=== PATIENT | female | born 1950 | race Caucasian/White ===

== ENCOUNTER → 2020-05-14 08:06 | Outpatient (BNVA) | payer MEDICARE, MEDICAID, SELFPAY | PROVIDERS: PCP Family Medicine; Visit Provider Student in an Organized Health Care Education/Training Program | DX: R76.8 Other specified abnormal immunological findings in serum (principal); M17.0 Bilateral primary osteoarthritis of knee | CPT/HCPCS: 99213 ==

== ENCOUNTER → 2020-06-03 11:20 | Outpatient (BNV) | payer MEDICARE, MEDICAID, SELFPAY | PROVIDERS: PCP Family Medicine; Visit Provider Internal Medicine Medical Oncology | DX: M85.88 Other specified disorders of bone density and structure, other site (principal); Z85.3 Personal history of malignant neoplasm of breast; Z86.711 Personal history of pulmonary embolism; E53.8 Deficiency of other specified B group vitamins | CPT/HCPCS: 38222; 99212; 99213; 99214; 99442 ==

== ENCOUNTER 2020-08-03 11:12 | Outpatient (REF) | payer MEDICARE, MEDICAID, SELFPAY | END 2020-08-03 11:13 | disposition home or self-care (01) | LOC: HO.LAB 11:12 | PROVIDERS: PCP Family Medicine; Visit Provider Internal Medicine | DX: Z20.828 Contact with and (suspected) exposure to other viral communicable diseases (principal) | CPT/HCPCS: C9803; U0003 ==

== ENCOUNTER 2020-09-17 17:25 | Emergency (ER) | payer MEDICARE, MEDICAID, SELFPAY ==
--- NOTE | ~2020-09-17 | XR_ITS ---
EXAMINATION: XR ABDOMEN KUB CLINICAL INDICATION: Abdominal pain. Possible constipation COMPARISON: 04/23/2019 TECHNIQUE: AP view of the abdomen. FINDINGS: Stool and air seen throughout the colon to the rectum. No significant small bowel dilatation or small bowel gas. Surgical clips in the right upper quadrant and amandeep overlying the midline again noted. Mild degenerative changes in the spine. XR/XR KUB IMPRESSION: Unremarkable bowel gas pattern. No evidence for obstruction.
--- NOTE | ~2020-09-17 | CT_ITS ---
EXAMINATION: CT ABDOMEN AND PELVIS WITH CONTRAST CLINICAL INFORMATION: abd pain COMPARISON: 11/20/2019 TECHNIQUE: Multidetector volumetric imaging was performed from the superior aspect of the liver through the pubic symphysis following administration of 100 mL Omnipaque 350 intravenous contrast. Sagittal and coronal reformatted images were obtained on the technologist workstation.. This CT examination was performed using dose optimization techniques as appropriate, variously including the following: *Automated exposure control *Adjustment of mA and/or kV according to patient size (this includes techniques or standardized protocols for targeted exams where dose is matched to indication/reason for exam; i.e. extremities or head) *Use of iterative reconstruction technique DLP: 570 mGy-cm FINDINGS: LUNG BASES: The visualized lung bases are unremarkable. Small hiatal hernia. LIVER, GALLBLADDER, AND BILIARY TREE: Number of strengths chronic atrophy the right lobe with compensatory hypertrophy of the left lobe and mild nodularity but no suspicious underlying hepatic lesion. No focal hepatic lesion or biliary ductal dilatation is present. Gallbladder surgically absent. PANCREAS: Unremarkable. SPLEEN: Unremarkable. ADRENAL GLANDS: Unremarkable. KIDNEYS AND URETERS: The kidneys are normal in size, shape, and attenuation. No hydronephrosis, hydroureter, or calculi seen. No perinephric stranding. BLADDER: Unremarkable. GASTROINTESTINAL TRACT: Scattered colonic diverticulosis with focal colonic wall thickening and pericolonic inflammatory changes adjacent to the proximal sigmoid colon consistent with focal diverticulitis in location similar to the prior study. No obstructive changes seen. Normal-appearing appendix in the right lower quadrant. Visualized small bowel unremarkable ABDOMINAL WALL: Postoperative changes along the midline abdominal wall LYMPHOVASCULAR STRUCTURES: Again there is bulky mesenteric and retroperitoneal adenopathy which has progressed from the prior study. This is more than would be expected just from mesenteric adenitis. Low-grade lymphoma or leukemia cannot be excluded and should be clinically correlated PELVIC VISCERA: Unremarkable. OSSEOUS STRUCTURES: Unremarkable. CT/CT abdomen pelvis w con IMPRESSION: Focal diverticulitis in the proximal sigmoid colon in the location similar to the prior study. I do not appreciate any obstructive changes. Worsened bulky adenopathy within the root of the mesentery and retroperitoneum. This is more than would be expected just for mesenteric panniculitis along. Low-grade lymphoma or underlying blood dyscrasia would be suspected in this setting with worsening adenopathy compared to the prior study. Clinical correlation would be needed as this cannot be defined further on the CT scan.
[2020-09-17 18:39] VITALS: BP 147/75; PULSE 84; RESP 18; TEMP 37.1; O2SAT 100; BMI 31.2
[2020-09-17 19:38] LABS: MANUAL DIFF FLAG NO
[2020-09-17 19:39] LABS: Basophils Percent Auto 0.4 % (0-2); Eosinophils Percent Auto 0.4 % (0-4); Hematocrit 33.3 % (37-47); Hemoglobin 10.6 g/dl (12.0-16.0); Imm Gran Abs Auto 0.03 X10*3/uL (0.00-0.03); Imm Gran Pct Auto 0.4 % (0.0-0.4); Lymphocytes Percent Auto 23.9 % (20-40); Mean Corpuscular HGB Conc 31.8 g/dl (31.0-35.0); Mean Corpuscular Volume 87.9 fL (80-98); Monocytes Percent Auto 11.1 % (2-11); Neutrophils Absolute Auto 5.5 X10*3/uL (2.0-8.3); Neutrophils Percent Auto 63.8 % (45-73); Platelet Count 161 X10*3/uL (160-400); Red Blood Count 3.79 X10*6/uL (4.20-5.50); Red Cell Distribution Width 14.6 % (11.0-16.0); White Blood Count 8.5 X10*3/uL (4.8-10.8)
[2020-09-17 20:02] LABS: Alanine Aminotransferase 18 U/L (0-31); Albumin Level 4.2 g/dL (3.5-5.0); Alkaline Phosphatase 102 U/L (39-117); Anion Gap 14 (12-20); Aspartate Amino Transferase 20 U/L (5-31); Bilirubin Total 0.5 mg/dL (0.0-1.0); Blood Urea Nitrogen 6 mg/dL (9-16); Calcium 9.5 mg/dL (8.4-10.2); Carbon Dioxide 24 mmol/L (22-29); Chloride 106 mmol/L (96-108); Creatinine Clr Calc Pharmacy 74.5; Estimated Glomerular Filt Rate > 60; Glucose Random 97 mg/dL (60-115); Potassium 4.3 mmol/L (3.3-5.1); Sodium 140 mmol/L (135-145); Total Protein 7.7 g/dL (6.5-8.0)
[2020-09-17 20:10] VITALS: BP 139/61; PULSE 81; RESP 16; TEMP 36.9; O2SAT 99
--- NOTE | 2020-09-17 20:16 | PC.NURSE ---
Pt ambulating from the waiting room into room 20 with a cane with a steady gait. Pt is CAOx4, speaking full sentences, reporting LLQ since yesterday. Pt denies N/V but reports one episode of watery stool this morning. Pt had been taking laxatives yesterday as she had been feeling constipated. Pt reports a history of Diverticulitis, most recently 6 months ago, states pain feels similar. 8/10 pain to LLQ at this time. IV established. UA obtained and sent. VSS. Awaiting primary MD yusuf. Call smith within reach. Continue to monitor.
[2020-09-17 20:32] LABS: Glucose Urine UA NEG (NEG); Leukocyte Esterase Urine NEG (NEG); Nitrite Urine NEG (NEG); Urine Blood TRACE (NEG); Urine Ketones 5 MG/DL (NEG); Urine Protein NEG (NEG-TRACE)
[2020-09-17 20:35] LABS: Appearance Urine CLEAR; Color Urine YELLOW
--- NOTE | 2020-09-17 20:37 | ED.ABDPAIN ---
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 she does not report any fevers, chills, chest pain or pressure, palpitations, abdominal distention bloody diarrhea, dysuria, hematuria, and edema. MD elicited complaint: abdominal pain Pertinent past history: diverticulitis Onset (ago): day(s) (1) Pain Consistency: constant Location: LLQ and L flank Severity: moderate Pain scale (0-10): 5 Quality: aching Radiation: none Exacerbating factors: bowel movement and movement Relieving factors: nothing Associated symptoms: denies other symptoms Related Data Home Medications Medication Instructions Recorded Confirmed albuterol sulfate 90 mcg/actuation 2 puff INHALATION Q4-6H PRN 05/03/20 06/03/20 aerosol inhaler fluticasone propionate 50 1 spray INTRANASAL DAILY 05/03/20 06/03/20 mcg/actuation nasal spray,suspension levothyroxine 88 mcg tablet 88 mcg PO DAILY 05/03/20 06/03/20 montelukast 10 mg tablet 10 mg PO DAILY 05/03/20 06/03/20 pantoprazole 40 mg tablet,delayed 40 mg PO DAILY 05/03/20 06/03/20 release cholecalciferol (vitamin D3) 25 25 mcg PO DAILY 05/14/20 06/03/20 mcg (1,000 unit) capsule cyanocobalamin (vitamin B-12) 1,000 mcg IM [id number] ml 05/14/20 06/03/20 1,000 mcg/mL injection solution Previous Rx's Medication Instructions Recorded levofloxacin 750 mg PO DAILY 10 Days #10 tab 09/17/20 metronidazole [Flagyl] 500 mg PO Q8H 10 Days #30 tab 09/17/20 oxycodone 5 mg PO Q8H PRN #7 tab 09/17/20 Allergies Allergy/AdvReac Type Severity Reaction Status Date / Time aspirin [ASPIRIN] Allergy Intermediate RASH Verified 06/03/20 08:47 Penicillins [PENICILLINS] Allergy Intermediate HIVES, BLACK Verified 06/03/20 08:47 SPOTS Review of Systems Review of Systems Constitutional: No Fever, No Chills ENT/Mouth: No sore throat Eyes: No Eye Pain, No Swelling, No Redness Cardiovascular: No Chest Pain, No SOB Respiratory: No Cough, No Sputum, No Wheezing Gastrointestinal: No Nausea, no Vomiting, No Diarrhea, positive abdominal pain Genitourinary: No Dysuria, no urinary frequency, no Hematuria, no Flank Pain, no hesitancy Musculoskeletal: No joint pain, No Myalgias Skin: No Skin Lesions, No rash Neuro: No Weakness, No Numbness, No Headache Psych: No Anxiety/Panic, No Depression Heme/Lymph: No Bruising, No Lymphadenopathy Endocrine: No Polyuria, No Polydipsia Yes all other systems are reviewed and are negative Physical Exam Vital Signs: Vital Signs: Last Vital Signs Temp 98.2 F 09/17/20 23:57 Pulse 80 09/17/20 23:57 Resp 18 09/17/20 23:57 BP 138/56 L 09/17/20 23:57 Pulse Ox 98 09/17/20 23:57 Body Mass Index 31.2 Appearance: Alert. Oriented X3. Mild distress. Eyes: Pupils equal, round and reactive to light. ENT: Pharynx normal. Neck: Normal inspection. Neck supple. CVS: Normal heart rate and rhythm. Pulses normal. Respiratory: No respiratory distress. Breath sounds normal. Abdomen: Soft and tender to minimal palpation to left lower quadrant and suprapubic. Skin: Skin warm and dry. Normal skin color. Normal skin turgor. Extremities: No lower extremity edema. Neuro: No motor deficit. No sensory deficit. 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 She has been afebrile, appears nontoxic, has been able to eat and drink without difficulty, reported some mild constipation that was resolved with p.o. laxatives. KUB is negative for acute findings, lab values are unremarkable with the exception of H and H 10.6/33.3 which is consistent with her prior values. Based on patient's history of abdominal lymphadenopathy and diverticulitis we will order CT scan with contrast. CT with contrast shows a worsening of lymphadenopathy highly suggestive of cancer, could possibly be metastatic as she does have a history of breast cancer. She is followed by Dr. Polanco. Prior CT scans show history of abdominal lymphadenopathy, she does say that she was told that she had abdominal cancer based on a prior CT scan. I discussed this case with hospitalist, patient does not want to be admitted. She does have follow-up with Dr. Polanco later this week, given that she does have this appointment, appears nontoxic, is afebrile and has a white count of 8.5 and no other indication of organ dysfunction we discharge home with p.o. antibiotics and pain management. Patient verbalized understanding of and agrees to plan of care to discharge home with appropriate follow-up. Consultations Consultation #1: Anurag Time: 23:00 MDM - Abdominal Pain Differential Diagnosis Differential diagnosis: Likely abdominal pain, acute appendicitis, bowel perforation, calculus of kidney, diverticulitis, mesenteric ischemia and small bowel obstruction Differential diagnosis narrative:: Abdominal Ca Medical Records Attestation: I reviewed the patient's medical records. Lab Data Attestation: I reviewed the patient's lab results. Result diagrams: 09/17/20 19:30 09/17/20 19:30 Labs: Lab Results 09/17/20 09/17/20 09/17/20 Range/Units 19:30 19:30 19:30 WBC 8.5 (4.8-10.8) X10*3/uL RBC 3.79 L (4.20-5.50) X10*6/uL Hgb 10.6 L (12.0-16.0) g/dl Hct 33.3 L (37-47) % MCV 87.9 (80-98) fL MCH 28.0 (27.0-33.0) pg MCHC 31.8 (31.0-35.0) g/dl RDW 14.6 (11.0-16.0) % Plt Count 161 (160-400) X10*3/uL MPV 12.0 (9.4-12.3) fL Immature Gran % (Auto) 0.4 (0.0-0.4) % Neut % (Auto) 63.8 (45-73) % Lymph % (Auto) 23.9 (20-40) % Schuyler % (Auto) 11.1 H (2-11) % Eos % (Auto) 0.4 (0-4) % Baso % (Auto) 0.4 (0-2) % Lymph # (Auto) 2.0 (1.2-4.9) X10*3/uL Schuyler # (Auto) 1.0 (0.1-1.2) X10*3/uL Eos # (Auto) 0.0 (0.0-0.4) X10*3/uL Baso # (Auto) 0.0 (0.0-0.2) X10*3/uL Abs Immat Gran (auto) 0.03 (0.00-0.03) X10*3/uL Absolute Neuts (auto) 5.5 (2.0-8.3) X10*3/uL Absolute Nucleated RBC 0.000 (0.0-0.012) X10*3/uL Nucleated RBC % (auto) 0.0 (0.0-0.2) /100WBC Hold Blue Top SEE NOTE Sodium 140 (135-145) mmol/L Potassium 4.3 (3.3-5.1) mmol/L Chloride 106 (96-108) mmol/L Carbon Dioxide 24 (22-29) mmol/L Anion Gap 14 (12-20) BUN 6 L (9-16) mg/dL Creatinine 0.73 (0.5-1.4) mg/dL Estim Creat Clear Calc 74.5 Estimated GFR > 60 Random Glucose 97 (60-115) mg/dL Calcium 9.5 (8.4-10.2) mg/dL Total Bilirubin 0.5 (0.0-1.0) mg/dL AST 20 (5-31) U/L ALT 18 (0-31) U/L Alkaline Phosphatase 102 (39-117) U/L Total Protein 7.7 (6.5-8.0) g/dL Albumin 4.2 (3.5-5.0) g/dL Urine Color Urine Appearance Urine pH (5.0-8.0) Ur Specific [place] (1.005-1.025) Urine Protein (NEG-TRACE) MG/DL Urine Glucose (UA) (NEG) MG/DL Urine Ketones (NEG) MG/DL Urine Blood (NEG) Urine Nitrite (NEG) Ur Leukocyte Esterase (NEG) Urine RBC (0) /HPF Urine WBC (0-4) /HPF Ur Squamous Epith Cells /LPF Urine Bacteria /LPF 09/17/20 Range/Units 20:21 WBC (4.8-10.8) X10*3/uL RBC (4.20-5.50) X10*6/uL Hgb (12.0-16.0) g/dl Hct (37-47) % MCV (80-98) fL MCH (27.0-33.0) pg MCHC (31.0-35.0) g/dl RDW (11.0-16.0) % Plt Count (160-400) X10*3/uL MPV (9.4-12.3) fL Immature Gran % (Auto) (0.0-0.4) % Neut % (Auto) (45-73) % Lymph % (Auto) (20-40) % Schuyler % (Auto) (2-11) % Eos % (Auto) (0-4) % Baso % (Auto) (0-2) % Lymph # (Auto) (1.2-4.9) X10*3/uL Schuyler # (Auto) (0.1-1.2) X10*3/uL Eos # (Auto) (0.0-0.4) X10*3/uL Baso # (Auto) (0.0-0.2) X10*3/uL Abs Immat Gran (auto) (0.00-0.03) X10*3/uL Absolute Neuts (auto) (2.0-8.3) X10*3/uL Absolute Nucleated RBC (0.0-0.012) X10*3/uL Nucleated RBC % (auto) (0.0-0.2) /100WBC Hold Blue Top Sodium (135-145) mmol/L Potassium (3.3-5.1) mmol/L Chloride (96-108) mmol/L Carbon Dioxide (22-29) mmol/L Anion Gap (12-20) BUN (9-16) mg/dL Creatinine (0.5-1.4) mg/dL Estim Creat Clear Calc Estimated GFR Random Glucose (60-115) mg/dL Calcium (8.4-10.2) mg/dL Total Bilirubin (0.0-1.0) mg/dL AST (5-31) U/L ALT (0-31) U/L Alkaline Phosphatase (39-117) U/L Total Protein (6.5-8.0) g/dL Albumin (3.5-5.0) g/dL Urine Color YELLOW Urine Appearance CLEAR Urine pH 6.0 (5.0-8.0) Ur Specific [place] 1.020 (1.005-1.025) Urine Protein NEG (NEG-TRACE) MG/DL Urine Glucose (UA) NEG (NEG) MG/DL Urine Ketones 5 (NEG) MG/DL Urine Blood TRACE (NEG) Urine Nitrite NEG (NEG) Ur Leukocyte Esterase NEG (NEG) Urine RBC 0-2 (0) /HPF Urine WBC 0-2 (0-4) /HPF Ur Squamous Epith Cells 1+ /LPF Urine Bacteria NONE /LPF Imaging Data KUB: Attestation: I personally reviewed and interpreted this imaging study as follows: Radiologist's impression: EXAMINATION: XR ABDOMEN KUB CLINICAL INDICATION: Abdominal pain. Possible constipation COMPARISON: 04/23/2019 TECHNIQUE: AP view of the abdomen. FINDINGS: Stool and air seen throughout the colon to the rectum. No significant small bowel dilatation or small bowel gas. Surgical clips in the right upper quadrant and amandeep overlying the midline again noted. Mild degenerative changes in the spine. XR/XR KUB IMPRESSION: Unremarkable bowel gas pattern. No evidence for obstruction. CT scan - abdomen: Attestation: I personally reviewed and interpreted this imaging study as follows: Radiologist's impression: EXAMINATION: CT ABDOMEN AND PELVIS WITH CONTRAST CLINICAL INFORMATION: abd pain COMPARISON: 11/20/2019 TECHNIQUE: Multidetector volumetric imaging was performed from the superior aspect of the liver through the pubic symphysis following administration of 100 mL Omnipaque 350 intravenous contrast. Sagittal and coronal reformatted images were obtained on the technologist workstation.. This CT examination was performed using dose optimization techniques as appropriate, variously including the following: *Automated exposure control *Adjustment of mA and/or kV according to patient size (this includes techniques or standardized protocols for targeted exams where dose is matched to indication/reason for exam; i.e. extremities or head) *Use of iterative reconstruction technique DLP: 570 mGy-cm FINDINGS: LUNG BASES: The visualized lung bases are unremarkable. Small hiatal hernia. LIVER, GALLBLADDER, AND BILIARY TREE: Number of strengths chronic atrophy the right lobe with compensatory hypertrophy of the left lobe and mild nodularity but no suspicious underlying hepatic lesion. No focal hepatic lesion or biliary ductal dilatation is present. Gallbladder surgically absent. PANCREAS: Unremarkable. SPLEEN: Unremarkable. ADRENAL GLANDS: Unremarkable. KIDNEYS AND URETERS: The kidneys are normal in size, shape, and attenuation. No hydronephrosis, hydroureter, or calculi seen. No perinephric stranding. BLADDER: Unremarkable. GASTROINTESTINAL TRACT: Scattered colonic diverticulosis with focal colonic wall thickening and pericolonic inflammatory changes adjacent to the proximal sigmoid colon consistent with focal diverticulitis in location similar to the prior study. No obstructive changes seen. Normal-appearing appendix in the right lower quadrant. Visualized small bowel unremarkable ABDOMINAL WALL: Postoperative changes along the midline abdominal wall LYMPHOVASCULAR STRUCTURES: Again there is bulky mesenteric and retroperitoneal adenopathy which has progressed from the prior study. This is more than would be expected just from mesenteric adenitis. Low-grade lymphoma or leukemia cannot be excluded and should be clinically correlated PELVIC VISCERA: Unremarkable. OSSEOUS STRUCTURES: Unremarkable. CT/CT abdomen pelvis w con IMPRESSION: Focal diverticulitis in the proximal sigmoid colon in the location similar to the prior study. I do not appreciate any obstructive changes. Worsened bulky adenopathy within the root of the mesentery and retroperitoneum. This is more than would be expected just for mesenteric panniculitis along. Low-grade lymphoma or underlying blood dyscrasia would be suspected in this setting with worsening adenopathy compared to the prior study. Clinical correlation would be needed as this cannot be defined further on the CT scan. Discharge Plan Discharge Clinical Impression: Diverticulitis, Abdominal lymphadenopathy Patient Disposition: Home, Self-Care Instructions: Diverticulitis (ED), Lymphadenopathy (ED), Diverticulitis Diet (ED) Additional Instructions: Te evaluaron para abdominal. La tomograf?a computarizada muestra diverticulitis, as? solitario un empeoramiento de la adenopat?a abdominal. Kayla empeoramiento de la adenopat?a es altamente sospechoso de c?ncer. Por favor, siga con el Dr. Polanco solitario estaba programado. Por favor, tome Levaquin solitario se indica prudencio los pr?ximos 10 d?as. Por favor, tome Flagyl 3 veces al d?a prudencio los pr?ximos 10 d?as. No elizabeth alcohol con kayla medicamento tendr? efectos secundarios graves. Le recetamos oxicodona para el manejo del dolor. Kayla medicamento es un narc?sally y tiene un alto riesgo de adicci?n y abuso. No conduzca la maquinaria de la operaci?n ni tome decisiones importantes mientras ino kayla medicamento. Kayla medicamento tiene un alto riesgo de ca?souza, retrasa el tiempo de reacci?n y puede causar estre?imiento. Use MiraLax y Colace seg?n sea necesario para suavizar las heces. Elizabeth mucho l?quido. Tyron por elegir kayla departamento de emergencias para la evaluaci?n. Por favor, chen un seguimiento con el m?dico de atenci?n primaria seg?n sea necesario. Regrese al servicio de urgencias para cualquier s?ntoma nuevo, preocupante o que empeore. You were evaluated for abdominal. CT scan shows diverticulitis as well as a worsening abdominal adenopathy. This worsening adenopathy is highly suspicious for cancer. Please follow-up with Dr. Polanco as scheduled. Please take Levaquin as directed for the next 10 days. Please take Flagyl 3 times a day for the next 10 days. Do not drink alcohol with this medication will have serious side effects. We prescribed oxycodone for pain management. This medication is a narcotic and has high risk for addiction and abuse. Do not drive operate machinery or make important decisions while taking this medication. This medication has high risk for falls, delays reaction time, and can cause constipation. Use MiraLax and Colace as needed to soften stools. Drink plenty of fluids. Thank you for choosing this emergency department for evaluation. Please follow-up with primary care physician as needed. Return to the emergency department for any new, concerning, or worsening symptoms. Prescriptions: New levofloxacin 750 mg tablet 750 mg PO DAILY 10 Days Qty: 10 RF: 0 metronidazole [Flagyl] 500 mg tablet 500 mg PO Q8H 10 Days Qty: 30 RF: 0 oxycodone 5 mg tablet 5 mg PO Q8H PRN (Reason: pain) Qty: 7 RF: 0 No Action montelukast 10 mg tablet 10 mg PO DAILY RF: 0 pantoprazole 40 mg tablet,delayed release (DR/EC) 40 mg PO DAILY RF: 0 levothyroxine 88 mcg tablet 88 mcg PO DAILY RF: 0 fluticasone propionate 50 mcg/actuation spray,suspension 1 spray intranasal DAILY RF: 0 albuterol sulfate 90 mcg/actuation HFA aerosol inhaler 2 puff inhalation Q4-6H PRN (Reason: Shortness Of Breath) RF: 0 cholecalciferol (vitamin D3) 25 mcg (1,000 unit) capsule 25 mcg PO DAILY RF: 0 cyanocobalamin (vitamin B-12) 1,000 mcg/mL solution 1,000 mcg IM [id number] RF: 0 PMFSH Past Medical History Attestation statement: The following information was validated with the patient. Source: old records reviewed Medical History (Updated 09/17/20 @ 22:37 by Myrtle Weston NP) Aberrant thyroid gland Asthma Breast cancer, left breast GERD (gastroesophageal reflux disease) Tubal ligation evaluation Social History Social History Alcohol intake: never Smoking Status: Former smoker Advance Directives: No Advance Directives Information Provided: Yes Sexual orientation: Straight/Heterosexual Gender identity: female
--- NOTE | 2020-09-17 20:39 | PC.NURSE ---
CRYSTAL GROWER at bedside for primary eval.
[2020-09-17 20:42] LABS: RBC Urine 0-2 /HPF (0); Squamous Epithelial Cell Urine 1+ /LPF; WBC Urine 0-2 /HPF (0-4)
[2020-09-17] MEDS: 0.9 % Sodium Chloride 1,000 ML 999 ML IVCONT (20:59)
--- NOTE | 2020-09-17 20:59 | PC.NURSE ---
IVF infusing per MAR. Plan for CT, awaiting CT.
--- NOTE | 2020-09-17 21:20 | PC.NURSE ---
Pt off to CT on hospital bed.
[2020-09-17] MEDS: iohexoL 350 MG/ML 100 ML INFUS..BTL IV (21:35)
[2020-09-17 21:53] VITALS: BP 137/66; PULSE 79; RESP 16
[2020-09-17] MEDS: Morphine Sulfate 2 MG/ML CARTRIDGE IVPUSH (22:52)
[2020-09-17] MEDS: ondansetron HCL 4 MG/2 ML VIAL IVPUSH (22:52)
[2020-09-17] MEDS: levoFLOXacin/D5W 750 MG/150 ML PIGGYBACK 100 MG IV (22:52)
--- NOTE | 2020-09-17 22:59 | PC.NURSE ---
Hospitalist at bedside, pt refusing admission to [facility]. Plan for IV ABX and DC home. Per SURFACE PLATE INSPECTOR and hospitalist, BCX not needed as pt will be discharged. Per SURFACE PLATE INSPECTOR, plan for PO Flagyl instead of IV, awaiting change of order. VSS. Continue to monitor.
[2020-09-17] MEDS: metroNIDAZOLE 500 MG TABLET PO (23:25)
[2020-09-17 23:57] VITALS: BP 138/56; PULSE 80; RESP 18; TEMP 36.8; O2SAT 98
[2020-09-18 00:55] VITALS: BP 122/63; PULSE 82; RESP 18; O2SAT 95
== END 2020-09-18 01:05 | disposition home or self-care (01) ==
PROVIDERS: Emergency Provider Emergency Medicine; PCP Family Medicine
DX: K57.32 Diverticulitis of large intestine without perforation or abscess without bleeding (principal); R59.1 Generalized enlarged lymph nodes; Z85.3 Personal history of malignant neoplasm of breast; K21.9 Gastro-esophageal reflux disease without esophagitis
CPT/HCPCS: 36415; 74018; 74177; 80053; 81001; 85025; 96365; 96367; 96375; 99284; J1956; J2270; J2405; Q9967

== ENCOUNTER 2020-09-18 14:30 | Outpatient (REF) | payer MEDICARE, MEDICAID, SELFPAY ==
--- NOTE | ~2020-09-18 | MM_ITS ---
EXAMINATION: MM SCREENING DIGITAL BREAST TOMOSYNTHESIS, BILATERAL CLINICAL INFORMATION: Screening. Asymptomatic. The lifetime risk of breast cancer based on the Tyrer-Cuzick Model is 4%. COMPARISON: Mammography: 06/21/2019, 05/16/2018, 05/06/2018, 03/14/2017 TECHNIQUE: Digital breast tomosynthesis is performed in both the craniocaudal and mediolateral oblique views along with computer-aided detection (CAD). Synthesized 2D images are generated from the tomosynthesis. FINDINGS: There are scattered areas of fibroglandular density (ACR BI-RADS breast composition Category b). There are bilateral asymmetries similar to prior exams. No developing density. No significant mass or architectural abnormality. Left breast has loosely grouped calcifications mid 3:00 position increased in prior studies. Patient will be recalled for magnification views to fully characterize. No abnormal calcifications on the right. MM/MM tomosynthesis screening BI IMPRESSION: 1. Left: Loosely grouped calcifications mid 3:00 position increased from prior studies. 2. Right: No mammographic evidence of malignancy. ASSESSMENT: BI-RADS 0: Incomplete - Need Additional Imaging Evaluation RECOMMENDATION: 1. Additional views of the left breast (magnification CC, magnification ML). 2. Radiology department staff will contact the patient for additional imaging. This patient's information was entered into a reminder system with a target due date for their next mammogram.
== END 2020-09-18 14:31 | disposition home or self-care (01) ==
LOC: HO.MAMMO 14:30
PROVIDERS: Visit Provider Family Medicine
DX: Z12.31 Encounter for screening mammogram for malignant neoplasm of breast (principal)
CPT/HCPCS: 77063; 77067

== ENCOUNTER 2020-09-24 10:56 | Outpatient (REF) | payer MEDICARE, MEDICAID, SELFPAY ==
--- NOTE | ~2020-09-24 | MM_ITS ---
EXAMINATION: MM DIAGNOSTIC DIGITAL MAMMOGRAPHY, LEFT CLINICAL INFORMATION: Recall from screening for calcifications mid 3:00 left breast. COMPARISON: Mammography: 09/18/2020, 06/21/2019, 05/16/2018, 05/06/2018, 03/14/2017. TECHNIQUE: Digital mammography is performed in the following views: Magnification left CC and magnification left ML x2. FINDINGS: There are scattered areas of fibroglandular density (ACR BI-RADS breast composition Category b). There are loosely grouped calcifications outer breast. They are likely not significantly changed from prior standard mammography 2018, although difficult to fully compare without prior magnification views. The calcifications are round and vary in size. There are no della or branching types and no ductal distribution. Results are discussed with the patient at time of visit. MM/MM added views LT IMPRESSION: Probable benign calcifications outer left breast. ASSESSMENT: BI-RADS 3: Probably Benign RECOMMENDATION: Diagnostic left mammography in 6 months to include magnifications views. This patient's information was entered into a reminder system with a target due date for their next mammogram.
== END 2020-09-24 10:57 | disposition home or self-care (01) ==
LOC: HO.MAMMO 10:56
PROVIDERS: Visit Provider Family Medicine
DX: R92.1 Mammographic calcification found on diagnostic imaging of breast (principal)
CPT/HCPCS: 77065

== ENCOUNTER 2020-10-01 10:48 | Day surgery (SDC) | payer MEDICARE, MEDICAID, SELFPAY ==
--- NOTE | ~2020-10-01 | CT_ITS ---
PROCEDURE: CT GUIDED BIOPSY, ABDOMINAL MASS CLINICAL INFORMATION: Lymphadenopathy COMPARISON: Previous CT of the abdomen and pelvis 09/17/2020 TECHNIQUE: Procedure risks and benefits including bleeding, infection, injury to adjacent organs and injury to the bowel was discussed with the patient and informed consent was obtained. Axial images through the abdomen were performed. The left mid abdomen was prepped and draped in the usual sterile fashion. The skin and soft tissues were anesthetized with 1% lidocaine plain. Using CT guidance and a coaxial system, access to an enlarged small bowel mesentery lymph node was obtained. 4 22-gauge FNA specimens were obtained for cytology and flow cytometry studies. There was no complication. The patient received Versed 2 mg and fentanyl 1.25 mg and glucagon 1 mg IV during the procedure. Total sedation time was [address] examination was performed using dose optimization techniques as appropriate, variously including the following: *Automated exposure control *Adjustment of mA and/or kV according to patient size (this includes techniques or standardized protocols for targeted exams where dose is matched to indication/reason for exam; i.e. extremities or head) *Use of iterative reconstruction technique DLP: 268 mGy-cm FINDINGS: There is small bowel mesentery lymphadenopathy. A 3 x 2 cm andreas mass was targeted for fine-needle aspiration. CT/CT biopsy abdomen percutaneous IMPRESSION: CT-guided small bowel mesentery lymph node fine-needle aspiration.
[2020-10-01 06:22] VITALS: BMI 30.9
[2020-10-01 11:48] VITALS: BP 159/67; PULSE 75; RESP 18; TEMP 36.6; O2SAT 98
[2020-10-01 12:11] LABS: INTERNATIONAL NORM RATIO 1.2 (0.9-1.1)
[2020-10-01 12:14] LABS: Partial Thromboplastin Time 38.2 SEC (24.1-38.0)
--- NOTE | 2020-10-01 13:57 | HO.RADPN ---
RADIOLOGY Narrative Narrative: Small bowel mesentery lymph nose fna performed using coaxial system. 4 22g fna specimens obtained. No complication.
[2020-10-01 14:10] VITALS: BP 135/71; PULSE 68; RESP 20; TEMP 37; O2SAT 97
[2020-10-01] MEDS: Lidocaine HCl 1 % MPF 5 ML VIAL 10 ML SUBCUT (14:10)
[2020-10-01 14:25] VITALS: BP 134/65; PULSE 70; RESP 18; O2SAT 97
[2020-10-01 14:40] VITALS: BP 125/62; PULSE 67; RESP 18; O2SAT 97
[2020-10-01 14:55] VITALS: BP 115/46; PULSE 68; RESP 18; O2SAT 98
[2020-10-01 15:10] VITALS: BP 123/55; PULSE 75; RESP 18; O2SAT 98
[2020-10-01] MEDS: Acetaminophen 325 MG TABLET 650 MG PO (15:34)
== END 2020-10-01 15:40 | disposition home or self-care (01) ==
PROVIDERS: PCP Radiology Diagnostic Radiology; Visit Provider Radiology Diagnostic Radiology
DX: R59.0 Localized enlarged lymph nodes (principal); J45.909 Unspecified asthma, uncomplicated; Z79.51 Long term (current) use of inhaled steroids; Z79.899 Other long term (current) drug therapy; Z79.82 Long term (current) use of aspirin
CPT/HCPCS: 10009; 36415; 49180; 77012; 85610; 85730; 88172; 88173; 88177; 88184; 88185; 88271; 88275; 88300; 88305; 88374; 99152; 99153; J1610; J2250; J3010

== ENCOUNTER 2020-10-19 11:42 | Outpatient (REF) | payer MEDICARE, MEDICAID, SELFPAY ==
--- NOTE | ~2020-10-19 | PE_ITS ---
EXAMINATION: Fluorine-18 FDG PET/CT Scan CLINICAL INDICATION: Initial treatment management.. Non-Hodgkin's lymphoma, positive: B cell mesenteric lymphoma, initial staging. PROCEDURE: 65 minutes following the intravenous administration of 13.4 mCi of fluorine 18 FDG, images from the base of the skull to the mid thighs were obtained using a combined PET/CT scanner with CT scan based attenuation correction. No oral contrast was administered. No intravenous contrast was administered. Transverse, coronal, sagittal, and volume reconstruction projections were obtained. The patient's blood glucose as determined by a finger stick, was 83 mg/dl immediately prior to injection. Total CT exam dose-length product 677.37 mGy-cm * These CT images were obtained using dose optimization techniques as appropriate, variously including the following: Automated exposure control * Adjustment of mA and/or kV according to patient size (this includes techniques or standardized protocols for targeted exams where dose is matched to indication/reason for exam; i.e. extremities or head) * Use of iterative reconstruction technique COMPARISON: No previous PET/CT scan is available for comparison. CT scan of the abdomen and pelvis dated 09/17/2020 and CTA of the chest dated 03/02/2019 are available for comparison. FINDINGS: (Slice numbers described in this report are numbered superiorly to inferiorly with slice #1 in the head) NECK AND VISUALIZED HEAD: No foci of abnormal FDG activity are noted. The distribution of FDG activity is physiological. There is no cervical lymphadenopathy. THORAX: There is a mildly FDG avid left axillary lymph node showing SUVmax 4.3, slice 83/267 and measuring 1.8 x 0.6 cm in largest transverse dimensions on the CT images. No additional foci of abnormal FDG activity are present in the chest. Just barely visualized is a 0.4 cm right upper lobe pulmonary nodule, slice 77/267 unchanged from the prior 03/02/2019 CT scan. This is much too small to be characterized on the FDG PET images. No additional pulmonary nodules are visualized. There is no pleural or pericardial fluid, or pneumothorax. There is no mediastinal, supraclavicular or additional axillary lymphadenopathy. ABDOMEN AND PELVIS: Extensive FDG avid mesenteric and retroperitoneal lymphadenopathy associated with FDG avid mesenteric stranding is present, SUVmax 9.2, slice 166/267. Just inferior to the pelvic inlet there is a discrete FDG avid pelvic lymph node showing SUVmax 5.7, slice 182/267 which is probably within a loop of small bowel or a lymph node inseparable from the latter, and at the same level a second FDG avid focus near the midline is present likely a mesenteric lymph node showing SUVmax 5.9, slice 179/267. There is additional mild FDG activity throughout the gastrointestinal tract involving both the large and small bowel extensively, and while most of this is likely physiological, additional abnormal FDG avid foci within the bowel wall may be present. The liver is normal in appearance except for some atrophy of the right lobe and hypertrophy of the left lobe is noted on the 09/17/2020 CT scan and unchanged from the latter. The spleen is unremarkable. The gallbladder is been resected and there are multiple metallic surgical clips in the gallbladder bed. The kidneys and adrenal glands are unremarkable. The pancreas is unremarkable. The pelvic viscera are are unremarkable. Postsurgical changes in the midline anterior abdominal wall are noted. There is no pelvic sidewall or inguinal lymphadenopathy. MUSCULOSKELETAL: No FDG avid foci are present in the osseous structures. There are mild degenerative changes in the spine but no suspicious sclerotic or lytic lesions are visualized. VASCULAR: Vascular calcifications including coronary are noted. PET/PET CT fusion skull to thigh IMPRESSION: 1. Extensive FDG avid retroperitoneal and mesenteric lymphadenopathy is present as described above. This is consistent with the biopsy-proven non-Hodgkin's B-cell lymphoma. 2. A single FDG avid left axillary lymph node is present and is nonspecific. This may represent an additional lymphomatous focus, but might also be inflammatory in etiology. 3. No additional abnormalities suspicious for other metastatic or malignant lesions are noted.
== END 2020-10-19 11:43 | disposition home or self-care (01) ==
LOC: HO.PET 11:42
PROVIDERS: Visit Provider Internal Medicine Medical Oncology
DX: Z13.89 Encounter for screening for other disorder (principal)

== ENCOUNTER 2020-10-22 09:16 | Day surgery (SDC) | payer MEDICARE, MEDICAID, SELFPAY ==
--- NOTE | 2020-10-21 09:19 | HO.ANESPROP2 ---
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 (Acute) Pulmonary embolism (Acute) B12 deficiency anemia (Acute) Abdominal lymphadenopathy (Acute) Past Medical History Medical History Aberrant thyroid gland Asthma B12 deficiency anemia Breast cancer, left breast GERD (gastroesophageal reflux disease) Hypothyroid Primary osteoarthritis of knees, bilateral Pulmonary embolism Tubal ligation evaluation Social History Social History Alcohol intake: never Smoking Status: Never smoker Smoked in Last 30 Days: No Patient Interested in Nicotine Replacement: No Patient Given Instructions on How to Stop Smoking: No Second Hand Smoke Exposure: No Advance Directives: No Advance Directives Information Provided: Yes Sexual orientation: Straight/Heterosexual Gender identity: female Meds Allergies Allergy/AdvReac Type Severity Reaction Status Date / Time aspirin [ASPIRIN] Allergy Intermediate RASH Verified 09/23/20 10:58 Penicillins [PENICILLINS] Allergy Intermediate HIVES, BLACK Verified 09/23/20 10:58 SPOTS Home Medications Medication Instructions Recorded Confirmed Last Taken Type albuterol sulfate 90 mcg/actuation 2 puff INHALATION Q4-6H PRN 05/03/20 09/23/20 Unknown History aerosol inhaler fluticasone propionate 50 1 spray INTRANASAL DAILY 05/03/20 09/23/20 Unknown History mcg/actuation nasal spray,suspension levothyroxine 88 mcg tablet 88 mcg PO DAILY 05/03/20 09/23/20 10/22/20 History montelukast 10 mg tablet 10 mg PO DAILY 05/03/20 09/23/20 Unknown History pantoprazole 40 mg tablet,delayed 40 mg PO DAILY 05/03/20 09/23/20 Unknown History release cholecalciferol (vitamin D3) 25 25 mcg PO DAILY 05/14/20 09/23/20 Unknown History mcg (1,000 unit) capsule cyanocobalamin (vitamin B-12) 1,000 mcg IM [id number] ml 05/14/20 09/23/20 Unknown History 1,000 mcg/mL injection solution Exam Exam Date and Time: October 21, [id number] Pertinent Lab Results Pertinent Lab Results: Laboratory Tests 10/14/20 10/14/20 10:57 10:57 WBC 5.7 Hgb 10.9 L Hct 34.8 L Plt Count 162 Sodium 139 Potassium 4.8 Chloride 106 Carbon Dioxide 28 BUN 12 Creatinine 0.69 Assessment and Plan Assessment Anesthesia Assessment: Chart Reviewed Documented by User: Renetta Stern 10/22/20 10:00 [facility] Past Medical History Medical History Aberrant thyroid gland Asthma B12 deficiency anemia Breast cancer, left breast GERD (gastroesophageal reflux disease) Hypothyroid Primary osteoarthritis of knees, bilateral Pulmonary embolism Tubal ligation evaluation Social History Social History Alcohol intake: never Smoking Status: Never smoker Smoked in Last 30 Days: No Patient Interested in Nicotine Replacement: No Patient Given Instructions on How to Stop Smoking: No Second Hand Smoke Exposure: No Advance Directives: No Advance Directives Information Provided: Yes Sexual orientation: Straight/Heterosexual Gender identity: female Meds Allergies Allergy/AdvReac Type Severity Reaction Status Date / Time aspirin [ASPIRIN] Allergy Intermediate RASH Verified 09/23/20 10:58 Penicillins [PENICILLINS] Allergy Intermediate HIVES, BLACK Verified 09/23/20 10:58 SPOTS Home Medications Medication Instructions Recorded Confirmed Last Taken Type albuterol sulfate 90 mcg/actuation 2 puff INHALATION Q4-6H PRN 05/03/20 09/23/20 Unknown History aerosol inhaler fluticasone propionate 50 1 spray INTRANASAL DAILY 05/03/20 09/23/20 Unknown History mcg/actuation nasal spray,suspension levothyroxine 88 mcg tablet 88 mcg PO DAILY 05/03/20 09/23/20 10/22/20 History montelukast 10 mg tablet 10 mg PO DAILY 05/03/20 09/23/20 Unknown History pantoprazole 40 mg tablet,delayed 40 mg PO DAILY 05/03/20 09/23/20 Unknown History release cholecalciferol (vitamin D3) 25 25 mcg PO DAILY 05/14/20 09/23/20 Unknown History mcg (1,000 unit) capsule cyanocobalamin (vitamin B-12) 1,000 mcg IM [id number] ml 05/14/20 09/23/20 Unknown History 1,000 mcg/mL injection solution Exam Airway Mallampati Class: II TM Dist: >3cm Neck ROM: Full Assessment and Plan Assessment Anesthesia Assessment: Anesthesia Plan Discussed and Chart Reviewed Final Anesthetic Review NPO: Yes ASA Class: III Final Preanesthetic Review: No Changes in Pt Med Stat, Meds/Allgs Chart Reviewed, Consent Obtained/Reviewed and Anes Risks/Benef Reviewed Patient Risk: Intermediate Procedure Risk: Low Assessment/Block/Sedation in SS: Assess/Block/Sedation-SS Anesthetic Plan Anesthetic Plan: MAC: Disposition: Standard PACU
[2020-10-22 09:47] VITALS: BMI 32.9
[2020-10-22 09:53] VITALS: BP 147/69; PULSE 87; RESP 18; TEMP 37.2; O2SAT 99
[2020-10-22] MEDS: Lactated Ringers 1,000 ML 100 ML IVCONT (10:06)
[2020-10-22 10:55] VITALS: BP 130/70; PULSE 87; RESP 16; TEMP 38.5; O2SAT 99
[2020-10-22 11:10] VITALS: BP 136/68; PULSE 85; RESP 16; TEMP 38.1; O2SAT 99
--- NOTE | 2020-10-22 11:10 | PM.HEMONCBM ---
Bone Marrow Aspiration - Bone Marrow Aspiration Procedure:: *Service Date: [10/22/20] Bone marrow aspiration and biopsy. Pre Op Diagnosis:: Lymphoma. Post Op Diagnosis:: Same. Surgeon:: Angelina Polanco. Anesthesia:: Fawn. Consent:: Informed consent obtained from the patient for the procedure. Pros and cons of biopsy explained. The patient was willing to proceed with the procedure under local anesthesia. Procedure in Detail:: *Service Date: 10/22/20. *Procedure: Bone marrow aspiration and biopsy. *Pre Op Dx: Lymphoma. *Post Op Dx: Same. *Surgeon: Angelina Polanco. The patient was positioned prone and the left posterior superior iliac spine prepped and draped. Under aseptic precautions, 5 ml of 1% lidocaine used for local anesthesia. Patient was sedated under MAC. Bone marrow aspiration was performed. Biopsy was taken via the Jamshidi needle, without any complications. The patient tolerated the procedure well. Specimens were sent for Frances stain flow cytometry and cytogenetics. Biopsy was sent for histology. Bandage was applied and patient was positioned on her back for 10 to 15 minutes after the procedure. The patient was advised to call us if she develops any pain or swelling at the surgical site. Follow up in 1 week. Thank you, CC: Dr. Rubi.
[2020-10-22 11:25] VITALS: BP 126/65; PULSE 83; RESP 16; O2SAT 98
[2020-10-22] MEDS: Cyanocobalamin (Vitamin B-12) 1,000 MCG/ML VIAL 1000 MCG IM (11:27)
[2020-10-22 11:40] VITALS: BP 136/66; PULSE 86; RESP 18; TEMP 37.7; O2SAT 98
[2020-10-22 14:49] LABS: Bone Marrow SEE SEPARATE REPORT
== END 2020-10-22 12:28 | disposition home or self-care (01) ==
PROVIDERS: PCP Family Medicine; Visit Provider Internal Medicine Medical Oncology
PROC: (CPT 38221; principal; 2020-10-22 10:30)
DX: C85.90 Non-Hodgkin lymphoma, unspecified, unspecified site (principal); D05.02 Lobular carcinoma in situ of left breast; D51.3 Other dietary vitamin B12 deficiency anemia; K21.9 Gastro-esophageal reflux disease without esophagitis; J45.909 Unspecified asthma, uncomplicated; Z79.51 Long term (current) use of inhaled steroids; Z79.899 Other long term (current) drug therapy; Z86.711 Personal history of pulmonary embolism; Z79.810 Long term (current) use of selective estrogen receptor modulators (SERMs); Z92.3 Personal history of irradiation; Z92.21 Personal history of antineoplastic chemotherapy; Z88.0 Allergy status to penicillin; Z88.1 Allergy status to other antibiotic agents
CPT/HCPCS: 38222; 36415; 88184; 88185; 88237; 88264; 88280; 88305; 88311; 88313; 88341; 88342; J1642; J2405; J3010

== ENCOUNTER → 2020-10-26 07:21 | Outpatient (REF) | payer MEDICARE, MEDICAID, SELFPAY ==
--- NOTE | 2020-10-26 07:39 | CA_ITS ---
Transthoracic Echocardiogram Patient (Last, First, Middle): Anisha Esposito E Gender: Female Date of : 1950 Age: 69 Procedure Date: 10/26/2020 Procedure Type: Transthoracic Echocardiogram Location: OP Height: 162.56 cm Weight: 80.29 kg BSA: 1.86 m2 Heart Rate: bpm BP: 136 / 70 mmHg Rotor Balancer: LYNNE Referring MD: Angelina Polanco MD Symptoms: Lymphoma. Pre chemotherapy. Study Quality: Fair ECG Rhythm: Sinus Conclusions: - The left ventricular systolic function is normal. The visually estimated ejection fraction is between 60-65%. Findings Left Ventricle Normal left ventricular cavity size. There is normal left ventricular wall thickness. The left ventricular systolic function is normal. The visually estimated ejection fraction is between 60-65%. There is no evidence of regional wall motion abnormalities. Diastolic function is normal for age. LV global longitudinal strain -11.1%, which is diminished but likely from poor endocardial tracking. Right Ventricle Normal right ventricular cavity size and systolic function. Tricuspid Valve Normal tricuspid valve structure. There is trace tricuspid valve regurgitation. The pulmonary artery systolic pressure is normal. Venous The inferior vena cava is normal in size and collapses greater than 50% with inspiration. Prior Study Comparison No significant change compared to prior study dated: 07/31/2013. Measurements 2D Linear Measurements IVSd: 0.73 0.6-0.9/0.6-1.0 cm LVIDd: 4.10 3.9-5.3/4.2-5.9 cm LVIDd Index: 2.20 2.4-3.2/2.2-3.1 cm/m2 LVIDs: 2.96 2.0-3.6 cm LVPWd: 0.75 0.7-1.1 cm LV Mass: 108.53 67-162/88-224 g LV Mass Index: 58.35 43-95/49-115 g/m2 2D Systolic Function EF 4C: 66.40 >55% EF 2C: 59.00 >55% EF BiP: 64.90 >55% Mitral Valve MV Pk E: 0.93 MV PK A: 0.82 MV Decel Time: 204.00 E/A: 1.10 E'Lateral: 10.00 E'Medial: 7.07 E/E' Med: 13.20 E/E' Lat: 9.30 PHT: 60.00 MVA PHT: 3.67 Decel [place]: 4.56 Diastolic Function MV Pk E: 0.93 MV Pk A: 0.82 E/A: 1.10 E'Medial: 7.07 E/E' Med: 13.20 E' Laterial: 10.00 E/E' Lat: 9.30 Tricuspid Valve TR Pk Eleuterio: 2.05 TR Pk Grad: 17.00 RA Press: 3.00 RVSP: 20.00 Updated in Other Vendor System with Status of Final Deangelo Small MD electronically signed on 10/28/2020 5:22:31 PM with status of Final
== END ==
LOC: HO.CARD 07:21
PROVIDERS: PCP Family Medicine; Visit Provider Internal Medicine Medical Oncology
DX: C85.90 Non-Hodgkin lymphoma, unspecified, unspecified site (principal)
CPT/HCPCS: 93308; 93321; 93356

== ENCOUNTER → 2020-11-23 06:33 | Day surgery (SDC) | payer MEDICARE, MEDICAID, SELFPAY | PROVIDERS: PCP Family Medicine; Visit Provider Internal Medicine Medical Oncology | DX: C85.13 Unspecified B-cell lymphoma, intra-abdominal lymph nodes (principal) ==

== ENCOUNTER 2020-11-23 06:41 | Day surgery (SDC) | payer MEDICARE, MEDICAID, SELFPAY ==
[2020-11-23] VITALS (8 sets, daily range): BP systolic 123–147; BP diastolic 64–86; PULSE 70–73; RESP 16–18; TEMP 36.3–36.6; O2SAT 97–100; BMI 29.8
--- NOTE | ~2020-11-23 | IR_ITS ---
PROCEDURE: IR INSERTION OF TUNNEL CATHETER CLINICAL INFORMATION: Lymphoma. Needs long-term chemotherapy. COMPARISON: PET exam 10/19/2020 TECHNIQUE: Following explaining ultrasound and fluoroscopy-guided tunneled right catheter placement procedure, benefits and risks, a written consent was obtained. Preliminary ultrasound imaging was obtained through the right neck. An optimal site was selected and marked. Marked site was cleaned and draped in usual sterile manner. 1% lidocaine was administered at the right neck. Under sterile ultrasound guidance, a single-wall needle was advanced and right jugular vein was punctured laterally. After observing venous return, a thin guidewire was advanced and needle withdrawn. A 5 [place]ian dilator was introduced over the guidewire and the entire unit was anchored to the neck and draped with hemostats. Approximately 1 gauze length only from the right neck incision, along the right anterior chest wall was infiltrated with 1% lidocaine. A small skin incision was performed and blunt dissection was performed inferior to this incision to form a pocket. A small pocket was created and port was placed in the pocket and anchored to adjacent subcutaneous soft tissues with a 3-0 nylon suture. A a blind tunneler was then extended from the chest wall incision to the right neck incision and a small catheter pulled. The catheter was sized and its proximal end connected to the port. The thin guidewire and dilator were removed. A 0.35 J-wire was then advanced through the existent sheath under fluoroscopy into the IVC. The 5 [place]ian sheath was exchanged with a 7 [place]ivian peel-away sheath with dilator over the wire. The dilator and guidewires were removed. The tunneled catheter was then extended through the sheath. The peel-away sheath was removed as the catheter was held tightly in position. An image was obtained to document position of the catheter tip in the SVC. The port was then flushed with saline followed by instillation of heparin. The anterior chest wall incision was sutured with 4-0 absorbable sutures. The neck incision was sutured with 3-0 absorbable sutures. Sterile dressing was applied at both incision sites. Conscious sedation was provided by IR nursing for 45 minutes.. Elements of maximal sterile barrier technique followed including use of cap, mask, sterile gown, sterile gloves, a sterile full body drape and hand hygiene. Also followed skin preparation with 2% chlorhexidine for cutaneous antisepsis, and sterile ultrasound preparation with sterile gel and probe cover when applicable. FINDINGS: On preliminary ultrasound imaging, there is a widely patent jugular vein. An approximately 20.5 cm long, 6.6 Bolivian tunneled catheter insertion with the tip in the distal SVC is ready for use. IR/IR cvc insert tunnel w prt/wick and base assembler IMPRESSION: Stable ultrasound and fluoroscopy-guided placement of a right Port-A-Cath 6.6 [place], 20.5 cm long in the distal SVC. The catheter is ready for use.
[2020-11-23 07:53] LABS: Basophils Percent Auto 0.2 % (0-2); Eosinophils Absolute Auto 0.1 X10*3/uL (0.0-0.4); Hematocrit 34.1 % (37-47); Hemoglobin 10.6 g/dl (12.0-16.0); Imm Gran Abs Auto 0.02 X10*3/uL (0.00-0.03); Imm Gran Pct Auto 0.4 % (0.0-0.4); Lymphocytes Absolute Auto 0.4 X10*3/uL (1.2-4.9); MANUAL DIFF FLAG SCAN; Mean Corpuscular HGB Conc 31.1 g/dl (31.0-35.0); Mean Corpuscular Hemoglobin 27.7 pg (27.0-33.0); Mean Platelet Volume 11.7 fL (9.4-12.3); Monocytes Absolute Auto 0.8 X10*3/uL (0.1-1.2); Monocytes Percent Auto 17.5 % (2-11); Neutrophils Absolute Auto 3.2 X10*3/uL (2.0-8.3); Neutrophils Percent Auto 70.9 % (45-73); Platelet Count 150 X10*3/uL (160-400); Red Blood Count 3.83 X10*6/uL (4.20-5.50); SCAN SMEAR FLAG 1; White Blood Count 4.5 X10*3/uL (4.8-10.8)
[2020-11-23 07:59] LABS: INTERNATIONAL NORM RATIO 1.1 (0.9-1.1); Prothrombin Time 13.3 SEC (10.8-13.0)
[2020-11-23 08:11] LABS: Partial Thromboplastin Time 41.4 SEC (24.1-38.0)
[2020-11-23 08:19] LABS: SLIDE REVIEW VERIFIED
[2020-11-23] MEDS: Acetaminophen 325 MG TABLET 650 MG PO (12:10)
== END 2020-11-23 13:57 | disposition home or self-care (01) ==
LOC: HO.SSS 06:41
PROVIDERS: Radiology Diagnostic Radiology; PCP Family Medicine; Visit Provider Radiology Diagnostic Radiology
DX: Z45.2 Encounter for adjustment and management of vascular access device (principal); C85.13 Unspecified B-cell lymphoma, intra-abdominal lymph nodes
CPT/HCPCS: 36415; 36561; 85025; 85610; 85730; 99152; 99153; C1769; C1788; J1642; J2250; J3010

== ENCOUNTER 2020-11-30 18:56 | Emergency (ER) | payer MEDICARE, MEDICAID, SELFPAY ==
--- NOTE | ~2020-11-30 | CT_ITS ---
EXAMINATION: CT ABDOMEN AND PELVIS WITHOUT CONTRAST CLINICAL INFORMATION: Left lower quadrant pain. Question diverticulitis. COMPARISON: 09/17/2020 TECHNIQUE: Multidetector volumetric imaging was performed from the superior aspect of the liver through the pubic symphysis. Sagittal and coronal reformatted images were obtained on the technologist's workstation. This CT examination was performed using dose optimization techniques as appropriate, variously including the following: *Automated exposure control *Adjustment of mA and/or kV according to patient size (this includes techniques or standardized protocols for targeted exams where dose is matched to indication/reason for exam; i.e. extremities or head) *Use of iterative reconstruction technique DLP: 186 mGy-cm FINDINGS: LUNG BASES: The visualized lung bases are unremarkable. LIVER, GALLBLADDER, AND BILIARY TREE: Normal size liver. Relatively atrophic right hepatic lobe with hypertrophic caudate and left lobe. Somewhat nodular Contour of the liver, this is unchanged from prior and suggestive of cirrhosis. No biliary ductal dilatation. No hepatic lesion. Cholecystectomy. PANCREAS: Unremarkable. SPLEEN: Unremarkable. ADRENAL GLANDS: Unremarkable. KIDNEYS AND URETERS: The kidneys are normal in size, shape, and attenuation. No hydronephrosis or hydroureter. Right lower pole 0.4 cm calculus is 8.5 cm from the posterior axillary line. There are likely a few additional punctate right-sided calculi. BLADDER: Unremarkable. GASTROINTESTINAL TRACT: The stomach is unremarkable. Normal caliber small bowel. No obstruction. Normal appendix. There is diverticulosis of the descending and sigmoid colon. There is focal wall thickening of the sigmoid colon with adjacent inflammation of the fat, consistent with acute diverticulitis. No free air or free fluid. ABDOMINAL WALL: No abdominal wall hernia. Midline fixation amandeep. LYMPH NODES: There is increase of the retroperitoneal lymphadenopathy. Mildly prominent lymph nodes do remain. Redemonstration of prominent mesenteric lymph nodes as well, also decreased from prior. VASCULAR: Normal caliber aorta. Mild atherosclerotic calcification. PELVIC VISCERA: The uterus and adnexa are unremarkable. OSSEOUS STRUCTURES: No acute or suspicious osseous abnormality. Grade 1 anterolisthesis of L4 on L5. Mild multilevel degenerative changes throughout the spine. CT/CT abdomen pelvis wo con IMPRESSION: Sigmoid diverticulitis. No free air or fluid collection. Cirrhotic appearance of the liver. Partially improved mesenteric and retroperitoneal lymphadenopathy.
[2020-11-30 19:22] VITALS: BP 126/69; PULSE 95; RESP 19; TEMP 37.6; O2SAT 98; BMI 29.8
[2020-11-30 20:00] LABS: Glucose Urine UA NEG (NEG); Leukocyte Esterase Urine NEG (NEG); Nitrite Urine NEG (NEG); PH 6.5 (5.0-8.0); Specific Gravity - Urine <= 1.005 (1.005-1.025); Urine Blood NEG (NEG); Urine Ketones NEG (NEG); Urine Protein NEG (NEG-TRACE)
[2020-11-30 20:02] LABS: Appearance Urine CLEAR; Color Urine YELLOW
--- NOTE | 2020-11-30 20:23 | ED.ABDPAIN ---
HPI - Abdominal Pain General Chief Complaint: Abdominal Pain Stated Complaint: fever Time Seen by Provider: 11/30/20 20:22 Source: patient Mode of arrival: ambulatory Limitations: no limitations History of Present Illness HPI narrative: Patient with history of diverticulitis. non-Hodgkin lymphoma received her chemotherapy on 11/10 noticed left lower abdomen discomfort for last few days getting worse now no nausea no vomiting no diarrhea no blood in the stool patient feeling gaseous plan bloated, patient been eating okay otherwise pain seems to be same kind of pain which she had last month. Related Data Home Medications Medication Instructions Recorded Confirmed albuterol sulfate 90 mcg/actuation 2 puff INHALATION Q4-6H PRN 05/03/20 09/23/20 aerosol inhaler levothyroxine 88 mcg tablet 88 mcg PO DAILY 05/03/20 09/23/20 montelukast 10 mg tablet 10 mg PO DAILY 05/03/20 09/23/20 pantoprazole 40 mg tablet,delayed 40 mg PO DAILY 05/03/20 09/23/20 release cholecalciferol (vitamin D3) 25 25 mcg PO DAILY 05/14/20 09/23/20 mcg (1,000 unit) capsule cyanocobalamin (vitamin B-12) 1,000 mcg IM [id number] ml 05/14/20 09/23/20 1,000 mcg/mL injection solution ascorbic acid (vitamin C) [Vitamin 1 g PO Q6H 11/11/20 11/11/20 C] simethicone 250 mg PO BID PRN 11/11/20 11/11/20 Previous Rx's Medication Instructions Recorded lorazepam 1 mg PO BID PRN #5 tab 10/19/20 ondansetron HCl [Zofran] 8 mg PO Q8H PRN #50 tab 11/08/20 ciprofloxacin HCl [Cipro] 500 mg PO BID #20 tab 12/01/20 metronidazole [Flagyl] 500 mg PO BID #20 tab 12/01/20 tramadol 50 mg PO Q6H PRN #20 tab 12/01/20 Allergies Allergy/AdvReac Type Severity Reaction Status Date / Time aspirin [ASPIRIN] Allergy Intermediate RASH Verified 09/23/20 10:58 Penicillins [PENICILLINS] Allergy Intermediate HIVES, BLACK Verified 09/23/20 10:58 SPOTS Review of Systems Review of Systems Constitutional : No Weight loss, No Fever, No Chills ENT/Mouth : No sore throat, No Rhinorrhea Eyes: No Eye Pain, No Swelling Cardiovascular : No Chest Pain, no palpitations Respiratory : No Cough, No Sputum, no shortness of breath Gastrointestinal : no Nausea, No Vomiting, No Diarrhea, ++ abdominal Pain, no black stools Genitourinary : No Dysuria, No Urinary Frequency Musculoskeletal : No joint pain, No Myalgias, No Joint Swelling Skin : No Skin Lesions, No rash Neuro : No Weakness, No Numbness, No Dizziness, No Headache Psych : No Anxiety/Panic, No Depression Heme/Lymph: No Bruising, No Lymphadenopathy Endocrine : No Polyuria, No Polydipsia All other systems reviewed and are negative Physical Exam Vital Signs: Vital Signs: Last Vital Signs Temp 99.5 F 11/30/20 20:46 Pulse 90 12/01/20 00:00 Resp 18 12/01/20 00:00 BP 114/62 12/01/20 00:00 Pulse Ox 97 12/01/20 00:00 Body Mass Index 29.8 Appearance: Alert. Oriented X3. No acute distress. Eyes: PERRLA, No Nystagmus ENT: Pharynx normal. Oral Mucosa moist Neck: Normal inspection. Neck supple. CVS: Normal heart rate and rhythm. Pulses normal. Respiratory: No respiratory distress. Equal air entry bilateral, no wheezing/rales/rhonchi Abdomen: Soft, deep tenderness left lower quadrant no rebound tenderness or guarding, Bowel sounds are present, no mass palpable, no CVA tenderness Skin: Skin warm and dry. Normal skin color. Normal skin turgor. Extremities: No lower extremity edema. No calf tenderness Neuro: Oriented X 3. No motor deficit. No sensory deficit.No cerebellar signs , cranial nerves II-XII intact MDM - Abdominal Pain MDM Narrative Medical decision making narrative: Patient with uncomplicated localized diverticulitis without any significant leukocytosis patient been eating okay no nausea no vomiting. Will give her a dose of IV Rocephin and Flagyl and discharged her home on Cipro and Flagyl advised to follow-up with news content specialist Medical Records Attestation: I reviewed the patient's medical records. Lab Data Attestation: I reviewed the patient's lab results. Result diagrams: 11/30/20 21:28 11/30/20 21:28 Labs: Lab Results 11/30/20 11/30/2011/30/21 Range/Units 19:47 21:28 21:28 WBC 8.6 (4.8-10.8) X10*3/uL RBC 3.85 L (4.20-5.50) X10*6/uL Hgb 10.8 L (12.0-16.0) g/dl Hct 34.3 L (37-47) % MCV 89.1 (80-98) fL MCH 28.1 (27.0-33.0) pg MCHC 31.5 (31.0-35.0) g/dl RDW 15.0 (11.0-16.0) % Plt Count 159 L (160-400) X10*3/uL MPV 11.6 (9.4-12.3) fL Immature Gran % (Auto) 0.4 (0.0-0.4) % Neut % (Auto) 77.6 H (45-73) % Lymph % (Auto) 5.6 L (20-40) % [place] % (Auto) 15.8 H (2-11) % Eos % (Auto) 0.5 (0-4) % Baso % (Auto) 0.1 (0-2) % Lymph # (Auto) 0.5 L (1.2-4.9) X10*3/uL [place] # (Auto) 1.4 H (0.1-1.2) X10*3/uL Eos # (Auto) 0.0 (0.0-0.4) X10*3/uL Baso # (Auto) 0.0 (0.0-0.2) X10*3/uL Abs Immat Gran (auto) 0.03 (0.00-0.03) X10*3/uL Absolute Neuts (auto) 6.6 (2.0-8.3) X10*3/uL Absolute Nucleated RBC 0.000 (0.0-0.012) X10*3/uL Nucleated RBC % (auto) 0.0 (0.0-0.2) /100WBC Smear Tech's Comments VERIFIED Sodium 138 (135-145) mmol/L Potassium 4.1 (3.3-5.1) mmol/L Chloride 103 (96-108) mmol/L Carbon Dioxide 25 (22-29) mmol/L Anion Gap 14 (12-20) BUN 8 L (9-16) mg/dL Creatinine 0.70 (0.5-1.4) mg/dL Estim Creat Clear Calc 74.9 Estimated GFR > 60 Random Glucose 110 (60-115) mg/dL Calcium 9.9 (8.4-10.2) mg/dL Total Bilirubin (0.0-1.0) mg/dL Direct Bilirubin (0.0-0.5) mg/dL AST (5-31) U/L ALT (0-31) U/L Alkaline Phosphatase (39-117) U/L Total Protein (6.5-8.0) g/dL Albumin (3.5-5.0) g/dL Lipase (8-78) U/L Urine Color YELLOW Urine Appearance CLEAR Urine pH 6.5 (5.0-8.0) Ur Specific [place] <= 1.005 (1.005-1.025) Urine Protein NEG (NEG-TRACE) MG/DL Urine Glucose (UA) NEG (NEG) MG/DL Urine Ketones NEG (NEG) MG/DL Urine Blood NEG (NEG) Urine Nitrite NEG (NEG) Ur Leukocyte Esterase NEG (NEG) 11/30/ Range/Units 21:28 WBC (4.8-10.8) X10*3/uL RBC (4.20-5.50) X10*6/uL Hgb (12.0-16.0) g/dl Hct (37-47) % MCV (80-98) fL MCH (27.0-33.0) pg MCHC (31.0-35.0) g/dl RDW (11.0-16.0) % Plt Count (160-400) X10*3/uL MPV (9.4-12.3) fL Immature Gran % (Auto) (0.0-0.4) % Neut % (Auto) (45-73) % Lymph % (Auto) (20-40) % [place] % (Auto) (2-11) % Eos % (Auto) (0-4) % Baso % (Auto) (0-2) % Lymph # (Auto) (1.2-4.9) X10*3/uL [place] # (Auto) (0.1-1.2) X10*3/uL Eos # (Auto) (0.0-0.4) X10*3/uL Baso # (Auto) (0.0-0.2) X10*3/uL Abs Immat Gran (auto) (0.00-0.03) X10*3/uL Absolute Neuts (auto) (2.0-8.3) X10*3/uL Absolute Nucleated RBC (0.0-0.012) X10*3/uL Nucleated RBC % (auto) (0.0-0.2) /100WBC Smear Tech's Comments Sodium (135-145) mmol/L Potassium (3.3-5.1) mmol/L Chloride (96-108) mmol/L Carbon Dioxide (22-29) mmol/L Anion Gap (12-20) BUN (9-16) mg/dL Creatinine (0.5-1.4) mg/dL Estim Creat Clear Calc Estimated GFR Random Glucose (60-115) mg/dL Calcium (8.4-10.2) mg/dL Total Bilirubin 0.6 (0.0-1.0) mg/dL Direct Bilirubin 0.3 (0.0-0.5) mg/dL AST 18 (5-31) U/L ALT 16 (0-31) U/L Alkaline Phosphatase 117 (39-117) U/L Total Protein 7.9 (6.5-8.0) g/dL Albumin 4.4 (3.5-5.0) g/dL Lipase 29 (8-78) U/L Urine Color Urine Appearance Urine pH (5.0-8.0) Ur Specific [place] (1.005-1.025) Urine Protein (NEG-TRACE) MG/DL Urine Glucose (UA) (NEG) MG/DL Urine Ketones (NEG) MG/DL Urine Blood (NEG) Urine Nitrite (NEG) Ur Leukocyte Esterase (NEG) Discharge Plan Discharge Clinical Impression: Diverticulitis Patient Disposition: Home, Self-Care Instructions: Diverticulitis (ED) Additional Instructions: Clear liquids advance as tolerated. Take antibiotics as prescribed. Report to the ER if increased abdominal pain/vomiting/blood in the stool Prescriptions: New ciprofloxacin HCl [Cipro] 500 mg tablet 500 mg PO BID Qty: 20 RF: 0 metronidazole [Flagyl] 500 mg tablet 500 mg PO BID Qty: 20 RF: 0 tramadol 50 mg tablet 50 mg PO Q6H PRN (Reason: pain) Qty: 20 RF: 0 No Action lorazepam 1 mg Tablet 1 mg PO BID PRN (Reason: Anxiety) Qty: 5 RF: 0 ondansetron HCl [Zofran] 4 mg Tablet 8 mg PO Q8H PRN (Reason: Nausea And Vomiting) Qty: 50 RF: 4 ascorbic acid (vitamin C) [Vitamin C] 1,000 mg Tablet 1 g PO Q6H RF: 0 simethicone 125 mg Tablet 250 mg PO BID PRN (Reason: Gastrointestinal Spasms Or Cramping) RF: 0 montelukast 10 mg tablet 10 mg PO DAILY RF: 0 pantoprazole 40 mg tablet,delayed release (DR/EC) 40 mg PO DAILY RF: 0 levothyroxine 88 mcg tablet 88 mcg PO DAILY RF: 0 albuterol sulfate 90 mcg/actuation HFA aerosol inhaler 2 puff inhalation Q4-6H PRN (Reason: Shortness Of Breath) RF: 0 cholecalciferol (vitamin D3) 25 mcg (1,000 unit) capsule 25 mcg PO DAILY RF: 0 cyanocobalamin (vitamin B-12) 1,000 mcg/mL solution 1,000 mcg IM [id number] RF: 0 PMFSH Past Medical History Medical History Aberrant thyroid gland Asthma B12 deficiency anemia Breast cancer, left breast Diverticulitis Diverticulosis GERD (gastroesophageal reflux disease) Hypothyroid Primary osteoarthritis of knees, bilateral Pulmonary embolism Tubal ligation evaluation Surgical History History of vocal cord polypectomy Hx of carpal tunnel repair Hx of rotator cuff surgery Family History Family History Mother Family hx of colon cancer Father Hx of kidney disease Brother History of throat cancer Social History Social History Alcohol intake: never Smoking Status: Never smoker Second Hand Smoke Exposure: No Use of substances other than those prescribed or required for medical reasons: No Advance Directives: No Advance Directives Information Provided: Yes Sexual orientation: Straight/Heterosexual Gender identity: female
[2020-11-30 20:46] VITALS: BP 129/65; PULSE 93; RESP 18; TEMP 37.5; O2SAT 100
[2020-11-30 21:42] LABS: Basophils Percent Auto 0.1 % (0-2); Eosinophils Percent Auto 0.5 % (0-4); Hematocrit 34.3 % (37-47); Hemoglobin 10.8 g/dl (12.0-16.0); Imm Gran Abs Auto 0.03 X10*3/uL (0.00-0.03); Imm Gran Pct Auto 0.4 % (0.0-0.4); Lymphocytes Absolute Auto 0.5 X10*3/uL (1.2-4.9); Lymphocytes Percent Auto 5.6 % (20-40); MANUAL DIFF FLAG SCAN; Mean Corpuscular HGB Conc 31.5 g/dl (31.0-35.0); Mean Corpuscular Hemoglobin 28.1 pg (27.0-33.0); Mean Corpuscular Volume 89.1 fL (80-98); Mean Platelet Volume 11.6 fL (9.4-12.3); Monocytes Absolute Auto 1.4 X10*3/uL (0.1-1.2); Monocytes Percent Auto 15.8 % (2-11); Neutrophils Absolute Auto 6.6 X10*3/uL (2.0-8.3); Neutrophils Percent Auto 77.6 % (45-73); Platelet Count 159 X10*3/uL (160-400); Red Blood Count 3.85 X10*6/uL (4.20-5.50); SCAN SMEAR FLAG 1; White Blood Count 8.6 X10*3/uL (4.8-10.8)
[2020-11-30 22:09] LABS: Alanine Aminotransferase 16 U/L (0-31); Albumin Level 4.4 g/dL (3.5-5.0); Alkaline Phosphatase 117 U/L (39-117); Anion Gap 14 (12-20); Aspartate Amino Transferase 18 U/L (5-31); Bilirubin Direct 0.3 mg/dL (0.0-0.5); Bilirubin Total 0.6 mg/dL (0.0-1.0); Blood Urea Nitrogen 8 mg/dL (9-16); Calcium 9.9 mg/dL (8.4-10.2); Carbon Dioxide 25 mmol/L (22-29); Chloride 103 mmol/L (96-108); Creatinine Clr Calc Pharmacy 74.9; Estimated Glomerular Filt Rate > 60; Glucose Random 110 mg/dL (60-115); Lipase 29 U/L (8-78); Potassium 4.1 mmol/L (3.3-5.1); Sodium 138 mmol/L (135-145); Total Protein 7.9 g/dL (6.5-8.0)
[2020-11-30 22:18] LABS: SLIDE REVIEW VERIFIED
[2020-11-30] MEDS: Morphine Sulfate 2 MG/ML CARTRIDGE IVPUSH (23:33)
[2020-11-30] MEDS: ondansetron HCL 4 MG/2 ML VIAL IVPUSH (23:33)
[2020-11-30] MEDS: metroNIDAZOLE/NS 500 MG/100 ML PIGGYBACK 100 MG IV (23:34)
[2020-12-01] VITALS: BP 114/62; PULSE 90; RESP 18; O2SAT 97
[2020-12-01] MEDS: 0.9 % Sodium Chloride 1,000 ML 999 ML IVCONT (00:19)
[2020-12-01] MEDS: cefTRIAXone sodium 1 GM in 0.9 % Sodium Chloride 50 ML IV (00:22)
== END 2020-12-01 01:43 | disposition home or self-care (01) ==
PROVIDERS: Emergency Provider Internal Medicine; PCP Family Medicine
DX: K57.32 Diverticulitis of large intestine without perforation or abscess without bleeding (principal); C85.90 Non-Hodgkin lymphoma, unspecified, unspecified site; Z92.21 Personal history of antineoplastic chemotherapy
CPT/HCPCS: 36415; 74176; 80048; 80076; 81003; 83690; 85025; 96361; 96365; 96368; 96375; 99284; J0696; J2270; J2405

== ENCOUNTER 2021-03-24 12:57 | Outpatient (REF) | payer MEDICARE, MEDICAID, SELFPAY ==
--- NOTE | ~2021-03-24 | MM_ITS ---
EXAMINATION: MM DIAGNOSTIC DIGITAL BREAST TOMOSYNTHESIS, LEFT CLINICAL INFORMATION: Short interval six-month follow-up for probable benign calcifications mid 3:00 left breast. Prior history LCIS left breast 2010. The lifetime risk of breast cancer based on the Tyrer-Cuzick Model is 31%. COMPARISON: Mammography: 09/24/2020, 09/18/2020 (BI-RADS 0), 06/21/2019, 05/16/2018, 05/06/2018, 03/14/2017, 03/21/2016, 11/02/2011. TECHNIQUE: Digital breast tomosynthesis is performed in both the craniocaudal and mediolateral oblique views along with computer-aided detection (CAD). Synthesized 2D images are generated from the tomosynthesis. Additional magnification left CC and magnification left ML views are obtained. FINDINGS: There are scattered areas of fibroglandular density (ACR BI-RADS breast composition Category b). There is old scarring mid medial breast consistent with the prior lumpectomy. There is no interval mass or architectural abnormality. No developing density. The axilla and skin contours are unremarkable. The loosely grouped calcifications for follow-up mid 3:00 position show slight increase in number from prior exam and progressive increase since 2016. The calcifications vary in size. Some are very fine and difficult to characterize. Stereotactic sampling is recommended. Results are discussed with the patient at time of visit. MM/MM tomosynthesis diagnostic LT IMPRESSION: Loosely grouped calcifications mid 3:00 position slightly increased and vary in size. ASSESSMENT: BI-RADS 4: Suspicious RECOMMENDATION: 1. Stereotactic biopsy left breast calcifications. 2. The lifetime risk of breast cancer based on the Tyrer-Cuzick Model is 31%. Additional annual adjunct screening with breast MRI may be of benefit in women with a risk score of 20% or greater. This patient's information was entered into a reminder system with a target due date for their next mammogram.
== END 2021-03-24 12:58 | disposition home or self-care (01) ==
LOC: HO.MAMMO 12:57
PROVIDERS: PCP Family Medicine; Visit Provider Family Medicine
DX: R92.1 Mammographic calcification found on diagnostic imaging of breast (principal)
CPT/HCPCS: 77061; 77065

== ENCOUNTER 2021-04-26 09:46 | Outpatient (REF) | payer MEDICARE, MEDICAID, SELFPAY ==
--- NOTE | ~2021-04-26 | MM_ITS ---
EXAMINATION: STEREOTACTIC TOMOSYNTHESIS-GUIDED VACUUM-ASSISTED BREAST BIOPSY, LEFT SPECIMEN RADIOGRAPH, LEFT POST PROCEDURE DIGITAL MAMMOGRAM, LEFT CLINICAL INFORMATION: Indeterminate calcifications lateral aspect of the left breast. COMPARISON: March 24, 2021 and studies dating back to March 21, 2016. TECHNIQUE/PROCEDURE: Informed consent was obtained from the patient after discussion of the benefits, risks, and alternatives to biopsy today. Patient appeared to understand. Gave opportunity for questions. Patient signed consent form. BIOPSY TABLE: [employer]one Biopsy System. LESION: Microcalcifications. LOCAL ANESTHESIA: 10 mL 1% lidocaine; 30 mL 1% lidocaine with epinephrine. DERMATOTOMY: Single skin alan dermatotomy performed. NEEDLE: [employer] Eviva 9-gauge vacuum assisted core biopsy device. APPROACH: medial lateral. TARGETING: Digital breast tomosynthesis used for targeting. CORES: 20. CLIP: [employer] SecurMark T-shaped marker. SPECIMEN RADIOGRAPH: Specimen radiograph is taken in separate room using digital mammography. The index calcifications are in the excised cores. POST PROCEDURE UNILATERAL DIGITAL MAMMOGRAM: The post biopsy mammogram is performed in separate room using separate digital mammography equipment from the biopsy procedure. 2 views are obtained. There are scattered areas of fibroglandular density (breast composition category: b). The clip marker is in position. The calcifications are markedly decreased at the biopsy site. No gross hematoma. The patient tolerated the procedure well. No immediate complications. Home instructions reviewed with the patient. Final pathology results are pending. MM/MM stereotactic biopsy LT IMPRESSION: 1. Digital tomosynthesis-guided core biopsy left breast with clip placement. 2. Specimen radiograph taken and post procedure mammogram. There is satisfactory positioning of the biopsy clip. 3. Final pathology results pending. An addendum report will be issued.
== END 2021-04-26 09:47 | disposition home or self-care (01) ==
LOC: HO.MAMMO 09:46
PROVIDERS: Visit Provider Surgery
DX: R92.8 Other abnormal and inconclusive findings on diagnostic imaging of breast (principal)
CPT/HCPCS: 19081; 88305; 99202; A4648

== ENCOUNTER → 2021-04-29 09:01 | Outpatient (BNVA) | payer MEDICARE, MEDICAID, SELFPAY | PROVIDERS: PCP Family Medicine; Referring Provider Family Medicine; Visit Provider Surgery | DX: R92.8 Other abnormal and inconclusive findings on diagnostic imaging of breast (principal) | CPT/HCPCS: 99212 ==

== ENCOUNTER 2021-05-10 10:00 | Outpatient (REF) | payer MEDICARE, MEDICAID, SELFPAY ==
--- NOTE | ~2021-05-10 | PE_ITS ---
EXAMINATION: Fluorine-18 FDG PET/CT Scan CLINICAL INDICATION: Subsequent treatment management. Follicular B-cell lymphoma, restaging. PROCEDURE: 59 minutes following the intravenous administration of 13.4 mCi of fluorine 18 FDG, images from the base of the skull to the mid thighs were obtained using a combined PET/CT scanner with CT scan based attenuation correction. No oral contrast was administered. No intravenous contrast was administered. Transverse, coronal, sagittal, and volume reconstruction projections were obtained. The patient's blood glucose as determined by a finger stick, was 87 mg/dl immediately prior to injection. Total CT exam dose-length product 587.55 mGy-cm * These CT images were obtained using dose optimization techniques as appropriate, variously including the following: Automated exposure control * Adjustment of mA and/or kV according to patient size (this includes techniques or standardized protocols for targeted exams where dose is matched to indication/reason for exam; i.e. extremities or head) * Use of iterative reconstruction technique COMPARISON: The prior PET CT scan dated 10/19/2020 is available for comparison. The diagnostic CT scan of the abdomen and pelvis, dated 11/30/2020, is available for comparison. FINDINGS: NECK AND VISUALIZED HEAD: No foci of abnormal FDG activity are noted. The distribution of FDG activity is physiological. There is no cervical lymphadenopathy. THORAX: There are no foci of abnormal FDG activity. No pulmonary nodules are visualized. There is no pleural or pericardial fluid or pneumothorax. There is no mediastinal, supraclavicular, or axillary lymphadenopathy. An FDG avid left axillary lymph node present on the prior 10/19/2020 study has completely resolved. A right-sided chest port with internal jugular catheter terminating in the superior vena cava is noted, and this was not present on 10/19/2020. ABDOMEN AND PELVIS: No foci of abnormal FDG activity are present in the abdomen or pelvis. Extensive FDG avid retroperitoneal mesenteric lymphadenopathy present on the prior 10/19/[address] scan has completely resolved FDG activity of varying intensities is present throughout the gastrointestinal tract with no corresponding CT abnormalities. There is diverticulosis without evidence of diverticulitis. Stable nodular appearance of the liver contour and a diminutive left lobe compared to the right are unchanged from prior studies, consistent with hepatic cirrhosis. There are no foci of abnormal FDG activity present in the liver. The patient is status post cholecystectomy with multiple metallic surgical clips in the gallbladder bed. The spleen is unremarkable. A nonobstructing 0.4 cm calculus in the lower pole the left kidney is just barely visualized, and is unchanged from prior studies, but was better visualized on the diagnostic CT scan dated 11/30/2020. The kidneys are otherwise unremarkable. The adrenal glands and pancreas are unremarkable. There is now no retroperitoneal, mesenteric, pelvic or inguinal lymphadenopathy. Mild haziness in the mid mesentery is present with no associated abnormal FDG activity. The pelvic organs are unremarkable. Multiple midline anterior abdominal wall surgical clips are noted, unchanged from prior studies. MUSCULOSKELETAL: No foci of abnormal FDG activity are present in the osseous structures. There are degenerative changes in the spine but no suspicious sclerotic or lytic lesions are visualized. VASCULAR: Vascular calcifications including coronary are noted. PET/PET CT fusion skull to thigh IMPRESSION: 1. Complete resolution of previously visualized FDG avid retroperitoneal and mesenteric lymphadenopathy and also of a solitary left axillary FDG avid lymph node. Using the 5 point Deauville scale, this patient would be classified as a Deauville score of 1. 2. No new abnormalities suspicious for metastatic or malignant lesions are noted. 3. Diffuse vascular calcifications including coronary. 4. Nonobstructing right lower pole nephrolithiasis.
== END 2021-05-10 10:01 | disposition home or self-care (01) ==
LOC: HO.PET 10:00
PROVIDERS: PCP Family Medicine; Visit Provider Internal Medicine Medical Oncology
DX: Z13.89 Encounter for screening for other disorder (principal)

== ENCOUNTER 2021-05-20 08:53 | Outpatient (REF) | payer MEDICARE, MEDICAID, SELFPAY ==
[2021-05-20 09:49] LABS: INTERNATIONAL NORM RATIO 1.1 (0.9-1.1); Prothrombin Time 12.7 SEC (9.9-13.0)
[2021-05-20 10:26] LABS: Iron 99 mcg/dL (30-160); Percent Iron Saturation 27 % (15-50); Total Iron Binding Capacity 369 mcg/dL (228-428); Unsaturated Iron Binding 270 ug/dL
[2021-05-20 10:36] LABS: Ferritin 63 ng/mL (10-250)
[2021-05-20 10:37] LABS: HBS Num1 3.09 mIU/mL (0-7.99); Hepatitis B Surface Antigen Negative (Negative); ~HepC Num1 0.23 S/CO (0.00-0.79); ~Hepatitis B Surface Antibody NONREACTIVE (Nonreactive); ~Hepatitis C Antibody Nonreactive (Nonreactive)
[2021-05-20 11:00] LABS: HBc Num1 0.04 S/CO (0.00-0.79); Hepatitis B Core Antibody Nonreactive (Nonreactive)
[2021-05-21 11:42] LABS: Alpha 1 Anti-trypsin 172 mg/dL (83-199)
[2021-05-23 13:26] LABS: Mitochondrial Antibodies NEGATIVE (NEGATIVE)
[2021-05-23 22:57] LABS: Anti Nuclear Antibody Screen POSITIVE (NEGATIVE)
[2021-05-25 11:31] LABS: Smooth Muscle Antibody <20 U (<20)
[2021-05-26 15:15] LABS: FIB-ALT 15 U/L (6-29); FIB-Alpha-2-Macroglobulin 428 mg/dL (106-279); FIB-Apolipoprotein A1 140 mg/dL (101-198); FIB-GGT 64 U/L (3-65); FIB-Haptoglobin 125 mg/dL (43-212); FIB-Total Bilirubin 0.4 mg/dL (0.2-1.2); Liver Fibrosis Score 0.69; Liver Fibrosis Stage F3; Nec Inflam Act Grade A0; Nec Inflam Act Score 0.09
== END 2021-05-20 08:54 | disposition home or self-care (01) ==
LOC: HO.LAB 08:53
PROVIDERS: PCP Family Medicine; Visit Provider Internal Medicine
DX: K74.60 Unspecified cirrhosis of liver (principal)
CPT/HCPCS: 36415; 81596; 82103; 82728; 83540; 85610; 86038; 86039; 86255; 86256; 86704; 86706; 86803; 87340

== ENCOUNTER 2021-07-22 10:34 | Outpatient (REF) | payer MEDICARE, MEDICAID, SELFPAY ==
[2021-07-22 11:27] LABS: COVID-19 Test Negative (Negative); IDNOW Serial# 16C4AD1C
== END 2021-07-22 10:35 | disposition home or self-care (01) ==
LOC: HO.LAB 10:34
PROVIDERS: Visit Provider Internal Medicine
DX: Z20.822 Contact with and (suspected) exposure to COVID-19 (principal)
CPT/HCPCS: 36415; 87635; C9803

== ENCOUNTER 2021-08-30 06:46 | Outpatient (REF) | payer MEDICARE, MEDICAID, SELFPAY ==
--- NOTE | ~2021-08-30 | CT_ITS ---
EXAMINATION: CT CHEST, CT ABDOMEN AND PELVIS WITH CONTRAST CLINICAL INFORMATION: Pulmonary nodules. History of lymphoma. COMPARISON: CT abdomen and pelvis without contrast 11/30/2020. CT PET exam 05/16/2021. TECHNIQUE: 5 mm thin axial and reformatted 3 mm thin sagittal and coronal images of chest, abdomen and pelvis were obtained following IV 100 mL Omnipaque 350. DLP: 704 mGy-cm FINDINGS: CHEST: The lungs are well expanded with 2 mm nodule right upper lobe axial image 138/7, 1 mm nodule medially right upper lobe axial image 132/7. No pneumonic consolidation seen. There is no mass or ground-glass density. The thyroid lobes are symmetric and normal. The central trachea and the bronchi are widely patent. The heart size and the great vessels are normal caliber. No pericardial effusion seen. There is a right central venous port with its tip in distal SVC. No abnormal-sized mediastinal lymph node or mass seen. There are trace coronary artery calcifications present. The axilla and chest wall is unremarkable. There is no pleural effusion or pleural thickening. ABDOMEN AND PELVIS: The liver is diffusely attenuated, normal size and contour. The gallbladder has been surgically removed. Visualized spleen, pancreas and bilateral adrenal glands are unremarkable. There is a small accessory splenule at the tip of the spleen. Both kidneys are normal size, shape and position. There is no enhancing renal mass or hydronephrosis. There is scattered stool, diverticuli and oral contrast seen throughout the colon without distention. There is nonspecific mild mural thickening involving the sigmoid colon likely secondary to underdistention. The small bowel loops are normal caliber. No free air or free fluid seen. There is mild fat stranding seen throughout the mesentery, nonspecific. The abdominal aorta is normal caliber with atherosclerosis. No retroperitoneal lymph node or mass seen. Imaging through the pelvis reveals anteverted uterus. No free fluid. No abnormal pelvic lymph node seen. There is a grade 1 anterolisthesis L4 over L5. No lytic or sclerotic process seen. CT/CT abdomen pelvis w con IMPRESSION: Small 2 mm and 1 mm pulmonary nodules. No abnormal mediastinal or axillary lymph node seen. Mild fatty infiltration of liver without focal lesion. The gallbladder has been surgically removed. Colonic diverticulosis without diverticulitis. Nonspecific mild mural thickening of sigmoid colon likely underdistention. Nonspecific mild mesenteric fat stranding in the midabdomen similar to previous study but significantly improved from 11/30/2020. Moderate constipation. No abnormal retroperitoneal or inguinal lymph node seen.
[2021-08-30] MEDS: iohexoL 350 MG/ML 100 ML INFUS..BTL 85 ML IV (10:33)
[2021-08-30] MEDS: Barium Sulfate Oral (Vanilla) 450 ML ORAL.SUSP 900 ML PO (10:34)
== END 2021-08-30 06:47 | disposition home or self-care (01) ==
LOC: HO.CT 06:46
PROVIDERS: Visit Provider Internal Medicine Medical Oncology
DX: R10.9 Unspecified abdominal pain (principal); I26.99 Other pulmonary embolism without acute cor pulmonale; R59.0 Localized enlarged lymph nodes
CPT/HCPCS: 71260; 74177; Q9967

== ENCOUNTER 2021-09-20 09:44 | Outpatient (REF) | payer MEDICARE, MEDICAID, SELFPAY ==
--- NOTE | ~2021-09-20 | MM_ITS ---
EXAMINATION: MM SCREENING DIGITAL BREAST TOMOSYNTHESIS, BILATERAL CLINICAL INFORMATION: Screening. Asymptomatic. Prior history left breast LCIS 2010. Benign left stereotactic biopsy 04/26/2021 (benign breast tissue with stromal fibrosis and calcifications). History follicular B-cell lymphoma. COMPARISON: Mammography: 04/26/2021, 03/24/2021, 09/24/2020, 09/18/2020, 06/21/2019, 05/06/2018 TECHNIQUE: Digital breast tomosynthesis is performed in both the craniocaudal and mediolateral oblique views along with computer-aided detection (CAD). Synthesized 2D images are generated from the tomosynthesis. FINDINGS: There are scattered areas of fibroglandular density (ACR BI-RADS breast composition Category b). Parenchymal pattern is similar to prior study. There are scattered asymmetries and mild fibronodular changes without developing density or interval mass or architectural abnormality. There are no abnormal calcifications. Biopsy clip marker again seen mid 3:00 left breast. The axilla and skin contours are unremarkable. MM/MM tomosynthesis screening BI IMPRESSION: No mammographic evidence of malignancy. ASSESSMENT: BI-RADS 2: Benign RECOMMENDATION: Routine annual mammography screening. This patient's information was entered into a reminder system with a target due date for their next mammogram.
== END 2021-09-20 09:45 | disposition home or self-care (01) ==
LOC: HO.MAMMO 09:44
PROVIDERS: PCP Family Medicine; Visit Provider Family Medicine
DX: Z12.31 Encounter for screening mammogram for malignant neoplasm of breast (principal)
CPT/HCPCS: 77063; 77067

== ENCOUNTER 2021-10-07 06:46 | Day surgery (SDC) | payer MEDICARE, MEDICAID, SELFPAY ==
--- NOTE | ~2021-10-07 | IR_ITS ---
EXAMINATION: IR PORT CATHETER REMOVAL CLINICAL INFORMATION: Port catheter no longer needed for chemotherapy. COMPARISON: 11/23/2020 TECHNIQUE: Removal of right chest port catheter. FINDINGS: Informed consent was obtained from the patient prior to the procedure. During this process, the procedure and potential alternatives were explained, along with the intended outcome and benefits. The risks of the procedure, as well as the risk of not doing the procedure, were discussed. The patient was given the opportunity to ask questions regarding the procedure and appeared competent to make medical decisions. A signed consent form which documents this discussion was placed in the medical record. ?All elements of maximal sterile barrier technique followed including use of cap, mask, sterile gown, sterile gloves, a sterile full body drape and hand hygiene. Also followed skin preparation with 2% chlorhexidine for cutaneous antisepsis, and sterile ultrasound preparation with sterile gel and probe cover when applicable.? Using sterile technique, a scalpel incision was made over the scar from previous port placement. The port and attached catheter were carefully removed without difficulty. The incision was closed with a running 4-0 Vicryl subcuticular stitch. Tissue adhesive was placed over the incision site. Patient tolerated procedure without difficulty. IR/IR cvc remove tunnel w prt/child care counselor IMPRESSION: 1. Successful removal of right chest port catheter. 2. Images were performed before and after removal of the port catheter which accounted for 0.1 minutes of fluoroscopy time and 2 images being obtained. DAP: 10 cGy-cm2
[2021-10-07 07:05] VITALS: BMI 28.6
[2021-10-07 07:06] VITALS: BP 128/54; PULSE 88; RESP 18; TEMP 36.6; O2SAT 98
[2021-10-07 07:35] LABS: MANUAL DIFF FLAG NO
[2021-10-07 07:39] LABS: Basophils Percent Auto 0.4 % (0-2); Eosinophils Percent Auto 0.7 % (0-4); Hematocrit 33.3 % (37.0-47.0); Hemoglobin 10.7 g/dl (12.0-16.0); Imm Gran Abs Auto 0.02 X10*3/uL (0.00-0.03); Imm Gran Pct Auto 0.4 % (0.0-0.4); Lymphocytes Absolute Auto 0.8 X10*3/uL (1.2-4.9); Lymphocytes Percent Auto 13.8 % (20-40); Mean Corpuscular HGB Conc 32.1 g/dl (31.0-35.0); Mean Corpuscular Hemoglobin 28.6 pg (27.0-33.0); Mean Platelet Volume 10.8 fL (9.4-12.3); Monocytes Percent Auto 18.7 % (2-11); Neutrophils Absolute Auto 3.7 x10*3/uL (2.0-8.3); Platelet Count 137 X10*3/uL (160-400); Red Blood Count 3.74 X10*6/uL (4.20-5.50); White Blood Count 5.5 X10*3/uL (4.8-10.8)
[2021-10-07 07:49] LABS: INTERNATIONAL NORM RATIO 1.1 (0.9-1.1); Prothrombin Time 12.8 SEC (9.9-13.0)
[2021-10-07 07:51] LABS: Partial Thromboplastin Time 37.2 SEC (24.1-38.0)
[2021-10-07] MEDS: Lidocaine HCl 1 % MPF 5 ML VIAL 10 ML INFILTRATI (10:41)
[2021-10-07 11:00] VITALS: BP 128/72; PULSE 76; RESP 16; TEMP 36.4; O2SAT 99
[2021-10-07 11:30] VITALS: BP 106/62; PULSE 85; RESP 16; O2SAT 99
[2021-10-07 11:56] VITALS: BP 113/63; PULSE 84; RESP 16; O2SAT 99
== END 2021-10-07 13:49 | disposition home or self-care (01) ==
PROVIDERS: PCP Family Medicine; Visit Provider Radiology Diagnostic Radiology
PROC: (CPT 36590; principal; 2021-10-07 08:30)
DX: Z45.2 Encounter for adjustment and management of vascular access device (principal); D05.02 Lobular carcinoma in situ of left breast; Z92.21 Personal history of antineoplastic chemotherapy; Z92.3 Personal history of irradiation; E53.8 Deficiency of other specified B group vitamins; Z86.711 Personal history of pulmonary embolism; Z79.899 Other long term (current) drug therapy; Z88.0 Allergy status to penicillin; Z88.8 Allergy status to other drugs, medicaments and biological substances
CPT/HCPCS: 36415; 36590; 85025; 85610; 85730; 99152; 99153; J2250; J3010

== ENCOUNTER 2021-11-19 15:14 | Emergency (ER) | payer MEDICARE, MEDICAID, SELFPAY ==
--- NOTE | ~2021-11-19 | CT_ITS ---
EXAMINATION: CT HEAD WITHOUT AND WITH CONTRAST CLINICAL INFORMATION: Facial numbness. History of lymphoma. COMPARISON: CT head from 07/22/2011. TECHNIQUE: Contiguous axial imaging was performed from the skull base to vertex before and after the administration of 673 mL of Omnipaque [address] examination was performed using dose optimization techniques as appropriate, variously including the following: *Automated exposure control *Adjustment of mA and/or kV according to patient size (this includes techniques or standardized protocols for targeted exams where dose is matched to indication/reason for exam; i.e. extremities or head) *Use of iterative reconstruction technique DLP: 673 mGy-cm FINDINGS: There is no evidence of acute intracranial hemorrhage or edematous territorial infarction. A few foci of hypoattenuation in the periventricular and deep white matter are consistent with mild microangiopathy. Jones-white matter differentiation is preserved. The ventricles are normal in size and configuration. No evidence for obstructive hydrocephalus. No abnormal mass effect or midline shift. No extra-axial fluid collections. No demonstrated abnormal intracranial enhancement our oligemia. Normal opacification of the superior sagittal, straight, transverse, and sigmoid sinuses. No acute soft tissue or osseous abnormalities. The mastoid air cells and paranasal sinuses are clear. CT/CT head/brain wo/w con IMPRESSION: 1. No evidence of acute intracranial hemorrhage or edematous territorial infarction. 2. No demonstrated abnormal intracranial enhancement.
--- NOTE | ~2021-11-19 | XR_ITS ---
EXAMINATION: XR CHEST CLINICAL INFORMATION: Chest pain and palpitations COMPARISON: May 02, 2019 TECHNIQUE: AP portable view of the chest was obtained. FINDINGS: No significant abnormality is noted involving the heart, lungs, mediastinum, bony thorax or soft tissues. XR/XR chest 1V IMPRESSION: No acute disease.
--- NOTE | ~2021-11-19 | CT_ITS ---
EXAMINATION: CT ABDOMEN AND PELVIS WITH CONTRAST CLINICAL INFORMATION: Abdominal pain, lymphoma COMPARISON: 08/30/2021 TECHNIQUE: Multidetector volumetric images were obtained from the superior aspect of the liver through the pubic symphysis following administration 85 mL of Omnipaque 350 intravenous contrast. Sagittal and coronal reformatted images were obtained on the technologist's workstation. Oral contrast: No This CT examination was performed using dose optimization techniques as appropriate, variously including the following: *Automated exposure control *Adjustment of mA and/or kV according to patient size (this includes techniques or standardized protocols for targeted exams where dose is matched to indication/reason for exam; i.e. extremities or head) *Use of iterative reconstruction technique DLP: 802 mGy-cm FINDINGS: LUNG BASES: The visualized lung bases are unremarkable. LIVER, GALLBLADDER, AND BILIARY TREE: The liver is normal in size, shape, and attenuation. No focal hepatic lesion or biliary ductal dilatation is present. The gallbladder is surgically absent. PANCREAS: Unremarkable. SPLEEN: Unremarkable. ADRENAL GLANDS: Unremarkable. KIDNEYS AND URETERS: Punctate, nonobstructing calculus in the lower pole of the right kidney posteriorly. Nephrograms are symmetric. No hydronephrosis. BLADDER: Unremarkable. GASTROINTESTINAL TRACT: Diverticulosis of the descending and sigmoid colon. No focal inflammatory process or obstruction. Normal appendix. ABDOMINAL WALL: No significant hernia is appreciated. LYMPH NODES: There is hazy attenuation of the small bowel mesentery which is slightly more prominent than the prior study. No enlarged retroperitoneal, mesenteric, or pelvic lymph nodes. VASCULAR: Unremarkable. PELVIC VISCERA: Unremarkable. OSSEOUS STRUCTURES: Unremarkable. CT/CT abdomen pelvis w con IMPRESSION: Hazy attenuation of the small bowel mesentery has slightly increased since 08/30/2021. No enlarged lymph nodes. Punctate nonobstructing right renal calculus. Mild colonic diverticulosis. Fleischner guidelines were followed.
--- NOTE | ~2021-11-19 | CT_ITS ---
EXAMINATION: CT ANGIOGRAM OF THE CHEST WITH AND WITHOUT CONTRAST (CT PULMONARY ANGIOGRAM FOR PE) CLINICAL INFORMATION: Reason for Exam palpitations, tachy, hx pe and ca COMPARISON: 08/30/2021 TECHNIQUE: Prior to contrast administration, noncontrast localization images were obtained. Subsequently, multidetector volumetric imaging was performed from the thoracic inlet to below the diaphragms following the administration of 85 mL Omnipaque 350 intravenous contrast. No contrast reaction reported Sagittal, coronal, and MIP oblique sagittal reformatted images were obtained on the CT workstation, uploaded to PACS, and reviewed. This CT examination was performed using dose optimization techniques as appropriate, variously including the following: *Automated exposure control *Adjustment of mA and/or kV according to patient size (this includes techniques or standardized protocols for targeted exams where dose is matched to indication/reason for exam; i.e. extremities or head) *Use of iterative reconstruction technique Total exam dose-length product 476 mGy-cm FINDINGS: QUALITY OF STUDY/CONTRAST BOLUS: Satisfactory. PULMONARY ARTERIES: No central or segmental pulmonary emboli. THORACIC AORTA: No aneurysm or dissection. LUNG: Stable 2 mm right upper lobe nodule on series 33, image 176. No new pulmonary nodules or parenchymal consolidation. PLEURA: No pleural effusion or pneumothorax. MEDIASTINUM: Normal heart size. No pericardial effusion. No hilar or mediastinal lymphadenopathy. No evidence of septal bowing or right heart strain. CHEST WALL/AXILLA: No axillary or internal mammary lymphadenopathy. OSSEOUS STRUCTURES: No acute or suspicious osseous abnormality. UPPER ABDOMEN: Unremarkable. No reflux of contrast into the hepatic veins to suggest elevated right heart pressures. CT/CT angio chest PE protocol IMPRESSION: No pulmonary arterial filling defects to indicate embolic disease. Stable 2 mm right upper lobe nodule. No new abnormality. VTE: negative
[2021-11-19 15:22] VITALS: BP 157/71; PULSE 84; RESP 16; TEMP 36.5; O2SAT 100; BMI 29.2
--- NOTE | 2021-11-19 15:26 | ECG_ITS ---
Test Reason : CHEST PAIN Blood Pressure : / mmHG Vent. Rate : 082 BPM Atrial Rate : 082 BPM P-R Int : 202 ms QRS Dur : 072 ms QT Int : 352 ms P-R-T Axes : 046 001 038 degrees QTc Int : 411 ms Normal sinus rhythm Septal infarct , age undetermined Abnormal ECG When compared with ECG of 02-MAY-2019 13:03, Septal infarct is now Present Referred By: Generic ED Physician Electronically Signed By:Juan Jose Lam
[2021-11-19 15:41] LABS: MANUAL DIFF FLAG NO
[2021-11-19 15:43] LABS: Basophils Percent Auto 0.4 % (0-2); Eosinophils Absolute Auto 0.1 X10*3/uL (0.0-0.4); Eosinophils Percent Auto 1.9 % (0-4); Hematocrit 33.9 % (37.0-47.0); Hemoglobin 10.7 g/dl (12.0-16.0); Imm Gran Abs Auto 0.02 X10*3/uL (0.00-0.03); Imm Gran Pct Auto 0.4 % (0.0-0.4); Lymphocytes Absolute Auto 1.1 X10*3/uL (1.2-4.9); Lymphocytes Percent Auto 22.3 % (20-40); Mean Corpuscular HGB Conc 31.6 g/dl (31.0-35.0); Mean Corpuscular Hemoglobin 28.2 pg (27.0-33.0); Mean Corpuscular Volume 89.4 fL (80.0-98.0); Mean Platelet Volume 11.2 fL (9.4-12.3); Monocytes Absolute Auto 0.9 X10*3/uL (0.1-1.2); Monocytes Percent Auto 19.4 % (2-11); Neutrophils Absolute Auto 2.6 x10*3/uL (2.0-8.3); Neutrophils Percent Auto 55.6 % (45-73); Platelet Count 171 X10*3/uL (160-400); Red Blood Count 3.79 X10*6/uL (4.20-5.50); Red Cell Distribution Width 14.3 % (11.0-16.0); White Blood Count 4.8 X10*3/uL (4.8-10.8)
[2021-11-19 15:58] LABS: Alanine Aminotransferase 21 U/L (0-31); Albumin Level 4.4 g/dL (3.5-5.0); Alkaline Phosphatase 124 U/L (39-117); Anion Gap 13 (12-20); Aspartate Amino Transferase 21 U/L (5-31); Bilirubin Total 0.2 mg/dL (0.0-1.0); Blood Urea Nitrogen 16 mg/dL (9-16); Calcium 9.9 mg/dL (8.4-10.2); Carbon Dioxide 24 mmol/L (22-29); Chloride 107 mmol/L (96-108); Estimated Glomerular Filt Rate > 60; Glucose Random 104 mg/dL (60-115); Potassium 4.2 mmol/L (3.3-5.1); Sodium 140 mmol/L (135-145); Total Protein 7.5 g/dL (6.5-8.0)
--- NOTE | 2021-11-19 16:01 | ED_ITS ---
HPI - Chest Pain General Chief Complaint: Chest Pain Stated Complaint: numbness on face/chest pains L side Time Seen by Provider: 11/19/21 16:36 Source: patient Mode of arrival: ambulatory Limitations: no limitations History of Present Illness HPI narrative: 71-year-old female presents with 3 days of lightheadedness, palpitations, left- sided chest pain, left-sided facial tingling and numbness. Stated this happened shortly after receiving a vaccine for shingles on Sunday. complaint: chest pain Pertinent past history: other (Ca, history PE) Onset (ago): day(s) Timing of current episode: episodic Prior episodes: No Pain location: left chest Pain radiation: none Severity: mild Quality: aching Relieving factors: nothing Exacerbating factors: nothing Context: history of DVT/PE Associated symptoms: palpitations and other (Facial numbness) Treatment prior to arrival: none Risk Factors Coronary artery disease risk factors: none Thoracic aortic dissection risk factors: none Pulmonary embolism risk factors: history of deep vein thrombosis and history of pulmonary embolism Related Data Home Medications Medication Instructions Recorded Confirmed albuterol sulfate 90 mcg/actuation 2 puff INHALATION Q4-6H PRN 05/03/20 08/22/21 aerosol inhaler levothyroxine 88 mcg tablet 88 mcg PO DAILY 05/03/20 08/22/21 montelukast 10 mg tablet 10 mg PO DAILY 05/03/20 08/22/21 pantoprazole 40 mg tablet,delayed 40 mg PO DAILY 05/03/20 08/22/21 release cholecalciferol (vitamin D3) 25 25 mcg PO DAILY 05/14/20 08/22/21 mcg (1,000 unit) capsule cyanocobalamin (vitamin B-12) 1,000 mcg IM [id number] ml 05/14/20 08/22/21 1,000 mcg/mL injection solution ascorbic acid (vitamin C) 1,000 mg 1 g PO Q6H 11/11/20 08/22/21 tablet (Vitamin C) simethicone 125 mg tablet 250 mg PO BID PRN 11/11/20 08/22/21 Previous Rx's Medication Instructions Recorded ondansetron HCl 4 mg tablet 8 mg PO Q8H PRN #50 tab 11/08/20 (Zofran) Magic Mouthwash 10 ml PO QID 240 Days #240 ml 12/23/20 Diphen/Lido/Antacid 1:1:1 240 mL suspension Allergies Allergy/AdvReac Type Severity Reaction Status Date / Time aspirin [ASPIRIN] Allergy Intermediate RASH Verified 11/19/21 15:25 Penicillins [PENICILLINS] Allergy Intermediate HIVES, BLACK Verified 11/19/21 15:25 SPOTS Review of Systems Review of Systems: Constitutional: No Weight loss, No Fever, No Chills, No Night Sweats, No Fatigue, No Malaise ENT/Mouth: No Hearing loss, No Ear Pain, No Nasal Congestion, No Sinus Pain, No Hoarseness, No sore throat, No Rhinorrhea, No Swallowing Difficulty Eyes: No Eye Pain, No Swelling, No Redness, No Foreign Body, No Discharge, No Vision Changes Cardiovascular: Positive Chest Pain, positive SOB, no Dyspnea on Exertion, No Orthopnea, No Edema, positive Palpitations Respiratory: No Cough, No Sputum, No Wheezing, No Smoke Exposure, No Dyspnea Gastrointestinal: Positive Nausea, No Vomiting, No Diarrhea, positive abdominal Pain, No Hematochezia, No Melena Genitourinary: No irregular bleeding, No Dysuria, No Urinary Frequency, No Hem aturia, No Urinary Incontinence, No Urgency, No Flank Pain, No Urinary Flow Changes, No Hesitancy Musculoskeletal: No joint pain, No Myalgias, No Joint Swelling Skin: No Skin Lesions, No rash Neuro: Positive Weakness, positive Numbness, positive Paresthesias, No Loss of Consciousness, positive Dizziness, No Headache Psych: No Anxiety/Panic, No Depression, No SI/HI/AH/VH Heme/Lymph: No Bruising, No Bleeding,No Lymphadenopathy Endocrine: No Polyuria, No Polydipsia, No Temperature Intolerance Yes all other systems are reviewed and are negative [facility] Past Medical History Attestation statement: The following information was validated with the patient. Source: old records reviewed Medical History Aberrant thyroid gland Asthma B12 deficiency anemia Breast cancer, left breast Diverticulitis Diverticulosis GERD (gastroesophageal reflux disease) Hypothyroid Primary osteoarthritis of knees, bilateral Pulmonary embolism Tubal ligation evaluation Surgical History History of vocal cord polypectomy Hx of carpal tunnel repair Hx of rotator cuff surgery Family History Family History Mother Family hx of colon cancer Father Hx of kidney disease Brother History of throat cancer Social History Social History Alcohol intake: never Second Hand Smoke Exposure: No Advance Directives: No Advance Directives Information Provided: No Sexual orientation: Straight/Heterosexual Gender identity: Female Physical Exam Vital Signs: Vital Signs: Last Vital Signs Temp 97.7 F 11/19/21 15:22 Pulse 78 11/19/21 17:28 Resp 17 11/19/21 17:28 BP 148/79 H 11/19/21 17:28 Pulse Ox 100 11/19/21 17:28 BMI result Body Mass Index 29.2 Appearance: Alert. Oriented X3. No acute distress. Head: Normal external exam. Normocephalic. Atraumatic. No Matos signs noted. No raccoon eyes noted Eyes: PERRLA. EOMI. Conjunctiva and sclera normal. Eyelids normal. ENT: TM's Normal. Pharynx normal. Uvula midline. Moist mucous membranes. No trismus noted. No drooling noted. No muffled voice noted. Neck: Normal inspection. Neck supple. No adenopathy. Thyroid Normal. No meningeal signs. No neck mass noted. CVS: Normal heart rate and rhythm. Heart sound normal. No murmurs noted. Pulses equal to all extremities. Respiratory: No respiratory distress. Painless inspiration. Breath sounds normal. No wheezes/rales/rhonchi noted. Chest nontender. No accessory muscle usage noted or decreased air movement noted. Abdomen: Soft and Diffusely tender.. Bowel sounds normal in all 4 quadrants. No distention noted. No organomegaly noted. No visible injury noted. Back: No CVA tenderness. Full range of motion noted. Skin: Skin warm and dry. Normal skin color. Normal skin turgor. No rashes/lesions/lacerations noted. Extremities: No lower extremity edema. Extremities exhibit normal range of motion. Extremities nontender. Neuro: cranial nerves 2-12 intact, no focal neural deficits, strength 5/5 to all extremities, No motor deficit. No sensory deficit. NIH Stroke Scale Internal: Initial- Upon Arrival Level of Consciousness: Alert Level of Consciousness Questions: Answers both questions correctly Level of Consciousness Commands: Performs both tasks correctly Best Gaze: Normal Visual: No visual loss Facial Palsy: Normal Motor Arm (Right): No drift Motor Arm (Left): No drift Motor Leg (Right): No drift Motor Leg (Left): No drift Limb Ataxia: Absent Sensory: Normal Best Language: No aphasia Dysarthia: Normal Extinction and Inattention: No abnormality Score: 0 Course Course Course Narrative: 71-year-old female with past medical history of breast cancer, lymphoma, history of PE, anemia, AMANDA positive presents with 3 days of lightheadedness, palpitations, left-sided chest pain, shortness of breath, abdominal pain, left- sided facial numbness and tingling. Patient does not have any focal neural defi cits at this time, an H stroke scale is 0 however given patient's significant history of multiple cancers and history of PE will order CT of head with and without, PE study, and abdomen and pelvis. Lab values are unremarkable. H&H is 10.7/33.9 which is consistent with her prior values. 19:11 CT PE study of the chest is negative. CT abdomen pelvis relatively unchanged from study on 08/30/2021. No acute findings. Chest x-ray is negative. 19:48 CT scan of head is negative for acute findings requiring emergent intervention. Plan of care is to discharge home follow-up with primary care crista watters. Patient verbalized understanding of and agrees to plan of care to discharge home. Verbalized understanding of signs and symptoms indicating need for emergent intervention MDM - Chest Pain Differential Diagnosis Differential diagnosis: Likely pneumothorax, atypical chest pain, st elevation myocardial infarction and costochondritis Differential diagnosis: PE, CVA Medical Records Data Attestation: I reviewed the patient's medical records. Lab Data Attestation: I reviewed the patient's lab results. Result diagrams: 11/19/21 15:36 11/19/21 15:36 Labs: Lab Results 11/19/21 11/19/21 11/19/21 Range/Units 15:36 15:36 15:36 WBC 4.8 (4.8-10.8) X10*3/uL RBC 3.79 L (4.20-5.50) X10*6/uL Hgb 10.7 L (12.0-16.0) g/dl Hct 33.9 L (37.0-47.0) % MCV 89.4 (80.0-98.0) fL MCH 28.2 (27.0-33.0) pg MCHC 31.6 (31.0-35.0) g/dl RDW 14.3 (11.0-16.0) % Plt Count 171 (160-400) X10*3/uL MPV 11.2 (9.4-12.3) fL Immature Gran % (Auto) 0.4 (0.0-0.4) % Neut % (Auto) 55.6 (45-73) % Lymph % (Auto) 22.3 (20-40) % Johnson % (Auto) 19.4 H (2-11) % Eos % (Auto) 1.9 (0-4) % Baso % (Auto) 0.4 (0-2) % Lymph # (Auto) 1.1 L (1.2-4.9) X10*3/uL Johnson # (Auto) 0.9 (0.1-1.2) X10*3/uL Eos # (Auto) 0.1 (0.0-0.4) X10*3/uL Baso # (Auto) 0.0 (0.0-0.2) X10*3/uL Abs Immat Gran (auto) 0.02 (0.00-0.03) X10*3/uL Absolute Neuts (auto) 2.6 (2.0-8.3) x10*3/uL Absolute Nucleated RBC 0.000 (0.0-0.012) X10*3/uL Nucleated RBC % (auto) 0.0 (0.0-0.2) /100WBC Sodium 140 (135-145) mmol/L Potassium 4.2 (3.3-5.1) mmol/L Chloride 107 (96-108) mmol/L Carbon Dioxide 24 (22-29) mmol/L Anion Gap 13 (12-20) BUN 16 (9-16) mg/dL Creatinine 0.72 (0.5-1.4) mg/dL Estim Creat Clear Calc 71.0 Estimated GFR > 60 Random Glucose 104 (60-115) mg/dL Calcium 9.9 (8.4-10.2) mg/dL Total Bilirubin 0.2 (0.0-1.0) mg/dL AST 21 (5-31) U/L ALT 21 (0-31) U/L Alkaline Phosphatase 124 H (39-117) U/L Troponin I High Sens < 3.5 (<3.5-17.0) ng/L Total Protein 7.5 (6.5-8.0) g/dL Albumin 4.4 (3.5-5.0) g/dL 11/19/21 Range/Units 19:45 WBC (4.8-10.8) X10*3/uL RBC (4.20-5.50) X10*6/uL Hgb (12.0-16.0) g/dl Hct (37.0-47.0) % MCV (80.0-98.0) fL MCH (27.0-33.0) pg MCHC (31.0-35.0) g/dl RDW (11.0-16.0) % Plt Count (160-400) X10*3/uL MPV (9.4-12.3) fL Immature Gran % (Auto) (0.0-0.4) % Neut % (Auto) (45-73) % Lymph % (Auto) (20-40) % Johnson % (Auto) (2-11) % Eos % (Auto) (0-4) % Baso % (Auto) (0-2) % Lymph # (Auto) (1.2-4.9) X10*3/uL Johnson # (Auto) (0.1-1.2) X10*3/uL Eos # (Auto) (0.0-0.4) X10*3/uL Baso # (Auto) (0.0-0.2) X10*3/uL Abs Immat Gran (auto) (0.00-0.03) X10*3/uL Absolute Neuts (auto) (2.0-8.3) x10*3/uL Absolute Nucleated RBC (0.0-0.012) X10*3/uL Nucleated RBC % (auto) (0.0-0.2) /100WBC Sodium (135-145) mmol/L Potassium (3.3-5.1) mmol/L Chloride (96-108) mmol/L Carbon Dioxide (22-29) mmol/L Anion Gap (12-20) BUN (9-16) mg/dL Creatinine (0.5-1.4) mg/dL Estim Creat Clear Calc Estimated GFR Random Glucose (60-115) mg/dL Calcium (8.4-10.2) mg/dL Total Bilirubin (0.0-1.0) mg/dL AST (5-31) U/L ALT (0-31) U/L Alkaline Phosphatase (39-117) U/L Troponin I High Sens < 3.5 (<3.5-17.0) ng/L Total Protein (6.5-8.0) g/dL Albumin (3.5-5.0) g/dL Imaging Data Chest x-ray: Attestation: I personally reviewed and interpreted this imaging study as follows: Radiologist's impression: EXAMINATION: XR CHEST CLINICAL INFORMATION: Chest pain and palpitations COMPARISON: May 02, 2019 TECHNIQUE: AP portable view of the chest was obtained. FINDINGS: No significant abnormality is noted involving the heart, lungs, mediastinum, bony thorax or soft tissues. XR/XR chest 1V IMPRESSION: No acute disease. CT head, chest, abdomen and pelvis: Attestation: I personally reviewed and interpreted this imaging study as follows: Radiologist's impression: FINDINGS: QUALITY OF STUDY/CONTRAST BOLUS: Satisfactory. PULMONARY ARTERIES: No central or segmental pulmonary emboli.? THORACIC AORTA: No aneurysm or dissection. LUNG: Stable 2 mm right upper lobe nodule on series 33, image 176. No new pulmonary nodules or parenchymal consolidation. PLEURA: No pleural effusion or pneumothorax. MEDIASTINUM: Normal heart size.? No pericardial effusion.? No hilar or mediastinal lymphadenopathy.? No evidence of septal bowing or right heart strain. CHEST WALL/AXILLA: No axillary or internal mammary lymphadenopathy. OSSEOUS STRUCTURES: No acute or suspicious osseous abnormality.? UPPER ABDOMEN: Unremarkable.? No reflux of contrast into the hepatic veins to suggest elevated right heart pressures. CT/CT angio chest PE protocol IMPRESSION: No pulmonary arterial filling defects to indicate embolic disease. ? Stable 2 mm right upper lobe nodule. No new abnormality. ? VTE: negative FINDINGS: LUNG BASES: The visualized lung bases are unremarkable.? LIVER, GALLBLADDER, AND BILIARY TREE: The liver is normal in size, shape, and attenuation. No focal hepatic lesion or biliary ductal dilatation is present. The gallbladder is surgically absent.? PANCREAS: Unremarkable.? SPLEEN: Unremarkable.? ADRENAL GLANDS: Unremarkable.? KIDNEYS AND URETERS: Punctate, nonobstructing calculus in the lower pole of the right kidney posteriorly. Nephrograms are symmetric. No hydronephrosis.? BLADDER: Unremarkable.? GASTROINTESTINAL TRACT: Diverticulosis of the descending and sigmoid colon. No focal inflammatory process or obstruction. Normal appendix.? ABDOMINAL WALL: No significant hernia is appreciated.? LYMPH NODES: There is hazy attenuation of the small bowel mesentery which is slightly more prominent than the prior study. No enlarged retroperitoneal, mesenteric, or pelvic lymph nodes. VASCULAR: Unremarkable. PELVIC VISCERA: Unremarkable.? OSSEOUS STRUCTURES: Unremarkable.? CT/CT abdomen pelvis w con IMPRESSION: Hazy attenuation of the small bowel mesentery has slightly increased since 08/30/2021. No enlarged lymph nodes. ? Punctate nonobstructing right renal calculus. ? Mild colonic diverticulosis.? ? Fleischner guidelines were followed FINDINGS: There is no evidence of acute intracranial hemorrhage or edematous territorial infarction. A few foci of hypoattenuation in the periventricular and deep white matter are consistent with mild microangiopathy. Jones-white matter differentiation is preserved. The ventricles are normal in size and configuration. No evidence for obstructive hydrocephalus. No abnormal mass effect or midline shift. No extra-axial fluid collections. No demonstrated abnormal intracranial enhancement our oligemia. Normal opacification of the superior sagittal, straight, transverse, and sigmoid sinuses. No acute soft tissue or osseous abnormalities. The mastoid air cells and paranasal sinuses are clear. ? CT/CT head/brain wo/w con IMPRESSION: 1. No evidence of acute intracranial hemorrhage or edematous territorial infarction. 2. No demonstrated abnormal intracranial enhancement. ECG Data ECG #1: Attestation: I personally reviewed and interpreted this ECG as follows: ECG interpretation date: 11/19/21 ECG interpretation time: 15:24 Prior ECG tracings: available for review Interpretation: Vent. rate 82 BPM IN interval 202 ms QRS duration 72 ms QT/QTc 352/411 ms P-R-T axes 46 1 38 Normal sinus rhythm Septal infarct , age undetermined Abnormal ECG When compared with ECG of 02-MAY-2019 13:03, Septal infarct is now Present Scores Heart Score History: -1- moderately suspicious ECG: -1- non specific repolarization disturbance Age: -2- > or = 65 Risk factory: -1- 1 or 2 risk factors Troponin: -0- < or = normal limit Score: 5 Risk: 16.6% Wells PE Clinical symptoms of DVT: 3 Previous DVT or PE: 1.5 Malignancy: 1 Score: 5.5 2-tier Risk: likely risk (17-53%) Discharge Plan Discharge Clinical Impression: Atypical chest pain, Facial paresthesia, Abdominal pain Patient Disposition: Home, Self-Care Instructions: Chest Pain (ED), Paresthesia (ED), Abdominal Pain (ED), Noncard iac Chest Pain (ED) Additional Instructions: You were evaluated for lightheadedness, palpitations, chest pain, facial numbness and tingling, and abdominal pain. CT scan of head, chest, abdomen and pelvis are negative for acute findings requiring emergent intervention. You are not having a stroke. You are not having a heart attack. Please follow-up with primary care physician and oncologist this week. Thank you for choosing this emergency department for evaluation. Please foll ow-up with primary care physician as needed. Return to the emergency department for any new, concerning, or worsening symptoms. Prescriptions: No Action ondansetron HCl [Zofran] 4 mg Tablet 8 mg PO Q8H PRN (Reason: Nausea And Vomiting) Qty: 50 4RF ascorbic acid (vitamin C) [Vitamin C] 1,000 mg Tablet 1 g PO Q6H 0RF simethicone 125 mg Tablet 250 mg PO BID PRN (Reason: Gastrointestinal Spasms Or Cramping) 0RF Magic Mouthwash Diphen/Lido/Antacid 1:1:1 240 mL Suspension 10 ml PO QID 240 Days Qty: 240 3RF Rx Instructions: Lidocaine Viscous 2 % 80mL; diphenhydramine 12.5 mg/5 mL 80mL; aluminum-mag hydrox-simeth [id number]/5mL 80mL montelukast 10 mg tablet 10 mg PO DAILY 0RF pantoprazole 40 mg tablet,delayed release (DR/EC) 40 mg PO DAILY 0RF levothyroxine 88 mcg tablet 88 mcg PO DAILY 0RF albuterol sulfate 90 mcg/actuation HFA aerosol inhaler 2 puff inhalation Q4-6H PRN (Reason: Shortness Of Breath) 0RF cholecalciferol (vitamin D3) 25 mcg (1,000 unit) capsule 25 mcg PO DAILY 0RF cyanocobalamin (vitamin B-12) 1,000 mcg/mL solution 1,000 mcg IM [id number] 0RF Interventions: ED Discharge Assessment Last Done: 11/19/21 20:20 Discharge Date/Time: 11/19/21 20:21
[2021-11-19 16:03] LABS: Troponin-I High Sensitivity < 3.5 ng/L (<3.5-17.0)
[2021-11-19 17:28] VITALS: BP 148/79; PULSE 78; RESP 17; O2SAT 100
[2021-11-19] MEDS: iohexoL 350 MG/ML 100 ML INFUS..BTL IV (18:04)
[2021-11-19] MEDS: 0.9 % Sodium Chloride 1,000 ML 999 ML IVCONT (18:08)
[2021-11-19 20:07] LABS: Troponin-I High Sensitivity < 3.5 ng/L (<3.5-17.0)
== END 2021-11-19 20:21 | disposition home or self-care (01) ==
PROVIDERS: Nurse Practitioner Family; Emergency Provider Emergency Medicine Emergency Medical Services; PCP Family Medicine
DX: R07.89 Other chest pain (principal); R20.2 Paresthesia of skin; R10.9 Unspecified abdominal pain; J45.909 Unspecified asthma, uncomplicated; Z86.711 Personal history of pulmonary embolism; Z86.718 Personal history of other venous thrombosis and embolism
CPT/HCPCS: 36415; 70470; 71045; 71275; 74177; 80053; 84484; 85025; 93005; 96360; 99284; Q9967

== ENCOUNTER 2022-01-05 12:08 | Outpatient (REF) | payer MEDICARE, MEDICAID, SELFPAY ==
--- NOTE | ~2022-01-05 | XR_ITS ---
EXAMINATION: XR FOOT, RIGHT CLINICAL INFORMATION: Pain COMPARISON: None TECHNIQUE: AP, lateral, and oblique views of the right foot. FINDINGS: Bone alignment is normal. No fracture or dislocation is seen. There are mild degenerative changes of the first MTP joint with joint space narrowing and small osteophytes. There are calcaneal spurs. There are soft tissue calcifications dorsal to the metatarsal shaft seen on the lateral view and in the ankle.. XR/XR foot RT min 3V IMPRESSION: Mild osteoarthritis at the first MTP joint. Calcaneal spurs.
== END 2022-01-05 12:09 | disposition home or self-care (01) ==
LOC: HO.XRAY 12:08
PROVIDERS: PCP Family Medicine; Visit Provider Family Medicine
DX: M79.671 Pain in right foot (principal)
CPT/HCPCS: 73630

== ENCOUNTER 2022-03-10 06:03 | Day surgery (SDC) | payer MEDICARE, MEDICAID, SELFPAY ==
--- NOTE | 2022-03-08 13:49 | P.CONAN_ITS ---
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 (Acute) Abdominal lymphadenopathy (Acute) Follicular low grade B-cell lymphoma (Acute) Abnormal mammogram of left breast (Acute) Pulmonary embolism (Acute) B12 deficiency anemia (Acute) Past Medical History Medical History Aberrant thyroid gland Asthma B12 deficiency anemia Breast cancer, left breast Diverticulitis Diverticulosis GERD (gastroesophageal reflux disease) Hypothyroid IBS (irritable bowel syndrome) Lymphoma Primary osteoarthritis of knees, bilateral Pulmonary embolism Tubal ligation evaluation Family History Family History Mother Family hx of colon cancer Father Hx of kidney disease Brother History of throat cancer Surgical History Surgical History H/O colonoscopy History of bone marrow biopsy History of esophagogastroduodenoscopy (EGD) History of lumpectomy of left breast History of removal of Port-a-Cath History of vocal cord polypectomy Hx of carpal tunnel repair Hx of cholecystectomy Hx of lithotripsy Hx of lymph node biopsy Hx of nasal septoplasty Hx of rotator cuff surgery Social History Social History Household Members: None Housing: Condominium Are you a primary career technology teacher to a significant other at home: No Do you presently have visiting nurse or other home services: No Alcohol intake: never Patient Tobacco Use Status: Never used Tobacco Second Hand Smoke Exposure: No Use of substances other than those prescribed or required for medical reasons: No Are you DNR?: No Advance Directives: No Advance Directives Information Provided: Yes service: No Current occupational status: disabled Sexual orientation: Straight/Heterosexual Gender identity: Female Meds Allergies Allergy/AdvReac Type Severity Reaction Status Date / Time aspirin [ASPIRIN] Allergy Intermediate RASH Verified 12/12/21 09:02 Penicillins [PENICILLINS] Allergy Intermediate HIVES, BLACK Verified 12/12/21 09:02 SPOTS Home Medications Medication Instructions Recorded Confirmed Last Taken Type albuterol sulfate 90 mcg/actuation 2 puff inhalation Q4-6H PRN 05/03/20 03/07/22 Unknown History aerosol inhaler Shortness Of Breath levothyroxine 88 mcg tablet 88 mcg PO DAILY 05/03/20 03/07/22 10/22/20 History montelukast 10 mg tablet 10 mg PO DAILY 05/03/20 03/07/22 Unknown History pantoprazole 40 mg tablet,delayed 40 mg PO DAILY 05/03/20 03/10/22 03/10/22 05:00 History release cholecalciferol (vitamin D3) 25 25 mcg PO DAILY 05/14/20 03/07/22 Unknown History mcg (1,000 unit) capsule cyanocobalamin (vitamin B-12) 1,000 mcg IM [id number] 05/14/20 03/07/22 Unknown History 1,000 mcg/mL injection solution ascorbic acid (vitamin C) 1,000 mg 1 g PO Q6H 11/11/20 03/07/22 Unknown History tablet (Vitamin C) simethicone 125 mg tablet 250 mg PO BID PRN Gastrointestinal 11/11/20 03/07/22 Unknown History Spasms Or Cramping meclizine 25 mg tablet 1 tab PO TID PRN Dizziness 12/12/21 03/07/22 Unknown History beclomethasone dipropionate 80 1 inh inhalation BID 03/07/22 03/07/22 Unknown History mcg/actuation HFA breath activated aerosol (Qvar RediHaler) dicyclomine 10 mg capsule 2 cap PO Q6H PRN Gastrointestinal 03/07/22 03/07/22 Unknown History Spasms Or Cramping Exam Exam Date and Time: March 08, 2022 1349 Height,Weight and Vital Signs: Height 5 ft 4 in Weight 79.379 kg Pertinent Lab Results Pertinent Lab Results: Laboratory Tests 12/12/21 12/12/21 09:57 09:57 WBC 4.1 L Hgb 9.9 L Hct 31.1 L Plt Count 147 L Sodium 139 Potassium 4.1 Chloride 107 Carbon Dioxide 25 BUN 16 Creatinine 0.75 Assessment and Plan Assessment Anesthesia Assessment: Chart Reviewed Documented by User: Shanta Esqueda MD 03/10/22 08:15 [facility] Past Medical History Medical History Aberrant thyroid gland Asthma B12 deficiency anemia Breast cancer, left breast Diverticulitis Diverticulosis GERD (gastroesophageal reflux disease) Hypothyroid IBS (irritable bowel syndrome) Lymphoma Primary osteoarthritis of knees, bilateral Pulmonary embolism Tubal ligation evaluation Family History Family History Mother Family hx of colon cancer Father Hx of kidney disease Brother History of throat cancer Family history of problems with anesthesia: No Surgical History Surgical History H/O colonoscopy History of bone marrow biopsy History of esophagogastroduodenoscopy (EGD) History of lumpectomy of left breast History of removal of Port-a-Cath History of vocal cord polypectomy Hx of carpal tunnel repair Hx of cholecystectomy Hx of lithotripsy Hx of lymph node biopsy Hx of nasal septoplasty Hx of rotator cuff surgery History of Problems with Anesthesia: No Social History Social History Household Members: None Housing: Condominium Are you a primary career technology teacher to a significant other at home: No Do you presently have visiting nurse or other home services: No Alcohol intake: never Patient Tobacco Use Status: Never used Tobacco Second Hand Smoke Exposure: No Use of substances other than those prescribed or required for medical reasons: No Are you DNR?: No Advance Directives: No Advance Directives Information Provided: Yes service: No Current occupational status: disabled Sexual orientation: Straight/Heterosexual Gender identity: Female Meds Allergies Allergy/AdvReac Type Severity Reaction Status Date / Time aspirin [ASPIRIN] Allergy Intermediate RASH Verified 12/12/21 09:02 Penicillins [PENICILLINS] Allergy Intermediate HIVES, BLACK Verified 12/12/21 09:02 SPOTS Home Medications Medication Instructions Recorded Confirmed Last Taken Type albuterol sulfate 90 mcg/actuation 2 puff inhalation Q4-6H PRN 05/03/20 03/07/22 Unknown History aerosol inhaler Shortness Of Breath levothyroxine 88 mcg tablet 88 mcg PO DAILY 05/03/20 03/07/22 10/22/20 History montelukast 10 mg tablet 10 mg PO DAILY 05/03/20 03/07/22 Unknown History pantoprazole 40 mg tablet,delayed 40 mg PO DAILY 05/03/20 03/10/22 03/10/22 05:00 History release cholecalciferol (vitamin D3) 25 25 mcg PO DAILY 05/14/20 03/07/22 Unknown History mcg (1,000 unit) capsule cyanocobalamin (vitamin B-12) 1,000 mcg IM [id number] 05/14/20 03/07/22 Unknown History 1,000 mcg/mL injection solution ascorbic acid (vitamin C) 1,000 mg 1 g PO Q6H 11/11/20 03/07/22 Unknown History tablet (Vitamin C) simethicone 125 mg tablet 250 mg PO BID PRN Gastrointestinal 11/11/20 03/07/22 Unknown History Spasms Or Cramping meclizine 25 mg tablet 1 tab PO TID PRN Dizziness 12/12/21 03/07/22 Unknown History beclomethasone dipropionate 80 1 inh inhalation BID 03/07/22 03/07/22 Unknown History mcg/actuation HFA breath activated aerosol (Qvar RediHaler) dicyclomine 10 mg capsule 2 cap PO Q6H PRN Gastrointestinal 03/07/22 03/07/22 Unknown History Spasms Or Cramping Exam Height,Weight and Vital Signs: Height 5 ft 4 in Weight 79.379 kg Vital Signs Temp Pulse Resp BP Pulse Ox O2 Del Method 03/10/22 06:41 96.8 F 70 18 109/55 L 99 Room Air Airway Mallampati Class: II TM Dist: >3cm Neck ROM: Full Denture: Upper Loose/Missing/Broken Teeth: Yes (Only few teeth bottom. No loose or broken per patient ) Heart: RRR Lungs: CTAB Assessment and Plan Assessment Anesthesia Assessment: Anesthesia Plan Discussed Final Anesthetic Review Family History of Problems with Anesthesia: No History of Problems with Anesthesia: No NPO: Yes ASA Class: III Final Preanesthetic Review: No Changes in Pt Med Stat, Meds/Allgs Chart Reviewed, Consent Obtained/Reviewed and Anes Risks/Benef Reviewed Patient Risk: Intermediate Procedure Risk: Low Assessment/Block/Sedation in SS: Assess/Block/Sedation-SS Anesthetic Plan Anesthetic Plan: MAC: Disposition: Standard PACU
[2022-03-10 06:26] VITALS: BMI 29.7
[2022-03-10] MEDS: Lactated Ringers 1,000 ML 100 ML IVCONT (06:40)
[2022-03-10 06:41] VITALS: BP 109/55; PULSE 70; RESP 18; TEMP 36; O2SAT 99
[2022-03-10 08:53] VITALS: BP 102/46; PULSE 65; RESP 20; TEMP 35.8; O2SAT 100
--- NOTE | 2022-03-10 08:58 | P.BOP_ITS ---
Brief Operative Note Date of Service: 03/10/22 Pre-op diagnosis: GERD, Screening Post-op diagnosis: other (Gastritis, Hiatal hernia, Colon polyp) Procedure: EGD with bx, Colonoscopy to the cecum with hot snare polypectomy x 1 with placement of 2 Resolution clips Surgeon: Hugo Jeong Anesthesia: MAC Was an Nuclear Technologist used for this Procedure?: No Estimated blood loss (mL): 2.0 Pathology: other (A. Gastric anrum B. Ascending colon polyp) Condition: stable Disposition: PACU
[2022-03-10 09:08] VITALS: BP 123/51; PULSE 59; RESP 20; TEMP 36.2; O2SAT 100
[2022-03-10 09:23] VITALS: BP 137/75; PULSE 62; RESP 20; O2SAT 100
[2022-03-10 09:37] VITALS: BP 125/73; PULSE 64; RESP 18; TEMP 36.3; O2SAT 100
--- NOTE | 2022-03-13 13:20 | OP_ITS ---
SURGEON: Hugo Jeong MD INDICATIONS: The patient presents for evaluation of intermittent reflux, abdominal discomfort, personal history of tubular adenoma of the colon, and colorectal cancer screening. Full consent was obtained from her for this, including risks of bleeding and perforation. PREOPERATIVE DIAGNOSIS: POSTOPERATIVE DIAGNOSIS: PROCEDURE PERFORMED: Esophagogastroduodenoscopy with biopsies, and colonoscopy to the cecum with hot snare polypectomy and placement of 2 resolution clips. ESTIMATED BLOOD LOSS: COMPLICATIONS: ANESTHESIA: Monitored anesthesia care. ASSISTANTS: SPECIMENS: PREOPERATIVE DIAGNOSES: Gastroesophageal reflux, abdominal discomfort, personal history of tubular adenoma of the colon, and colorectal cancer screening. POSTOPERATIVE DIAGNOSES: Gastroesophageal reflux, abdominal discomfort, personal history of tubular adenoma of the colon, and colorectal cancer screening, hiatal hernia, minimal gastritis, colon polyp, diverticulosis, and internal hemorrhoids. DESCRIPTION OF PROCEDURE: The patient was placed in the left lateral decubitus position. The Olympus videogastroscope was passed in the posterior oropharynx and upper esophagus under direct vision. The scope was passed slowly to the distal esophagus. The gastroesophageal junction appeared at 35 cm and appeared normal, without any esophagitis nor Maldonado esophagus. There was no evidence of any varices noted. The scope was advanced into the stomach and this revealed there was a small to moderate-sized hiatal hernia. The scope was advanced to pylorus and duodenum was cannulated to the descending portion. The duodenum including the bulb appeared normal without mass or ulceration. The scope was withdrawn back in the stomach. The gastric antrum and body had some areas of erythema, but no erosions or ulceration. There was good peristalsis. Biopsies were obtained from the antrum. The scope was retroflexed visualizing the proximal stomach carefully, which appeared normal, without any sign of mass, ulceration, nor varices. There was no portal gastropathy. The scope was straightened and withdrawn back to the esophagus. The esophageal mucosa appeared normal and again there was no sign of any varices. The scope was withdrawn from the patient. She was turned around for the colonoscopy. The digital rectal exam revealed no abnormalities. The Olympus video pediatric colonoscope was entered into the rectum and advanced easily to the cecum. Once in the cecum, I did identify normal-appearing cecal pouch with appendiceal orifice and a normal-appearing ileocecal valve. There was transillumination of light deep in the right lower quadrant. The entire cecum and ileocecal valve appeared normal. The scope was slowly withdrawn assessing all mucosal surfaces carefully. Preparation was excellent. In the mid ascending colon, there was an approximately 8-10 mm grossly adenomatous polyp, which was removed by hot snare polypectomy. There was some oozing at the site of the polypectomy, which was then cauterized further with the tip of the snare with good hemostasis. Two clips were applied with good deployment and good hemostasis. I did not visualize any other polyps, colitis, nor angiodysplasia. There was a mild amount of sigmoid diverticulosis. In the rectum, scope was retroflexed visualizing small internal hemorrhoids, but no other pathology. The rectal mucosa appeared normal. The scope was straightened and withdrawn from the patient. She tolerated the procedure well and was returned to the recovery area in stable condition. IMPRESSION: 1. Colon polyp. 2. Diverticulosis. 3. Internal hemorrhoids. 4. Hiatal hernia. 5. Mild gastritis. PLAN: The results of the pathology will be checked. I would recommend a repeat colonoscopy in 5 years. She was advised to see me in 1 year for a followup visit. She will continue her pantoprazole. She was advised not to use any aspirin and NSAIDs for least 1 week. MD BRYN Mosqueda/ANIL / [phone] JOHNNIE
== END 2022-03-10 10:15 | disposition home or self-care (01) ==
PROVIDERS: PCP Family Medicine; Visit Provider Internal Medicine
PROC: (CPT 45385; principal; 2022-03-10 07:30)
DX: Z12.11 Encounter for screening for malignant neoplasm of colon (principal); Z86.010 Personal history of colon polyps; Z80.0 Family history of malignant neoplasm of digestive organs; D12.2 Benign neoplasm of ascending colon; K57.30 Diverticulosis of large intestine without perforation or abscess without bleeding; K64.8 Other hemorrhoids; K29.50 Unspecified chronic gastritis without bleeding; K21.9 Gastro-esophageal reflux disease without esophagitis; K44.9 Diaphragmatic hernia without obstruction or gangrene; K74.60 Unspecified cirrhosis of liver; K76.0 Fatty (change of) liver, not elsewhere classified; K58.1 Irritable bowel syndrome with constipation; E03.9 Hypothyroidism, unspecified; D51.0 Vitamin B12 deficiency anemia due to intrinsic factor deficiency; J44.9 Chronic obstructive pulmonary disease, unspecified; Z79.51 Long term (current) use of inhaled steroids; Z79.899 Other long term (current) drug therapy; Z88.0 Allergy status to penicillin; Z88.8 Allergy status to other drugs, medicaments and biological substances; Z85.72 Personal history of non-Hodgkin lymphomas; Z86.711 Personal history of pulmonary embolism; Z85.3 Personal history of malignant neoplasm of breast; Z87.442 Personal history of urinary calculi; Z87.891 Personal history of nicotine dependence
CPT/HCPCS: 45385; 43239; 88305; 88342

== ENCOUNTER 2022-03-22 14:00 | Outpatient (REF) | payer MEDICARE, MEDICAID, SELFPAY ==
--- NOTE | ~2022-03-22 | US_ITS ---
EXAMINATION: US RETROPERITONEAL LIMITED (RENAL ONLY) CLINICAL INFORMATION: Calculus of kidney. COMPARISON: CT abdomen and pelvis with contrast 11/19/2021. XR abdomen KUB 09/17/2020 and 04/23/2019. US retroperitoneal limited (renal only) 08/18/2019 and 03/07/2019. TECHNIQUE: Real-time imaging of the kidneys. FINDINGS: RIGHT KIDNEY: 11.6 x 6.2 x 4.5 cm (SAG x AP x TRV). The kidney is normal in size, contour, and echogenicity. Renal cortical thickness is normal. No focal parenchymal lesions. There is mild fullness of the upper collecting system. Within the interpolar region there is a 0.6 cm echogenic focus consistent with calculus. Within the lower pole there is a 3 mm echogenic focus consistent with nonobstructing calculus. LEFT KIDNEY: 11.1 x 5.9 x 4.5 cm (SAG x AP x TRV). The kidney is normal in size, contour, and echogenicity. Renal cortical thickness is normal. No calculi or focal parenchymal lesions. There is fullness to the upper collecting system without meliza hydronephrosis. US/US renal BI IMPRESSION: Left nephrolithiasis. Mild bilateral renal pelvis prominence without meliza hydronephrosis.
== END 2022-03-22 14:01 | disposition home or self-care (01) ==
LOC: HO.US 14:00
PROVIDERS: Visit Provider Family Medicine
DX: N20.0 Calculus of kidney (principal); R10.9 Unspecified abdominal pain
CPT/HCPCS: 76775

== ENCOUNTER 2022-03-23 14:28 | Outpatient (REF) | payer MEDICARE, MEDICAID, SELFPAY ==
--- NOTE | ~2022-03-23 | US_ITS ---
EXAMINATION: US PELVIS LIMITED (BLADDER) CLINICAL INFORMATION: Renal calculus, abdominal pain. COMPARISON: Renal ultrasound 03/22/2022 and 08/18/2019. CT abdomen and pelvis with contrast 11/19/2021. XR abdomen KUB 09/17/2020 and 04/23/2019. TECHNIQUE: Real-time imaging of the bladder. FINDINGS: BLADDER: Well distended and normal. Bilateral ureteral jets are not demonstrated. Prevoid bladder volume is 618.3 mL. Postvoid bladder volume is 16.4 mL. US/US bladder IMPRESSION: Normal bladder ultrasound.
== END 2022-03-23 14:29 | disposition home or self-care (01) ==
LOC: HO.US 14:28
PROVIDERS: Visit Provider Family Medicine
DX: N20.0 Calculus of kidney (principal); R10.9 Unspecified abdominal pain
CPT/HCPCS: 76857

== ENCOUNTER → 2022-05-09 09:33 | Outpatient (BNVA) | payer MEDICARE, MEDICAID, SELFPAY | PROVIDERS: PCP Family Medicine; Visit Provider Urology | DX: N20.0 Calculus of kidney (principal); M54.9 Dorsalgia, unspecified | CPT/HCPCS: 99202 ==

== ENCOUNTER 2022-05-12 08:17 | Outpatient (REF) | payer MEDICARE, MEDICAID, SELFPAY ==
--- NOTE | ~2022-05-12 | CT_ITS ---
EXAMINATION: CT ABDOMEN AND PELVIS WITHOUT CONTRAST CLINICAL INFORMATION: Kidney stone. COMPARISON: Previous renal and bladder ultrasound March [address] of the abdomen and pelvis most recent November 2021. TECHNIQUE: Multidetector volumetric imaging was performed from the superior aspect of the liver through the pubic symphysis. Sagittal and coronal reformatted images were obtained on the technologist's workstation. This CT examination was performed using dose optimization techniques as appropriate, variously including the following: *Automated exposure control *Adjustment of mA and/or kV according to patient size (this includes techniques or standardized protocols for targeted exams where dose is matched to indication/reason for exam; i.e. extremities or head) *Use of iterative reconstruction technique DLP: 433 mGy-cm FINDINGS: LUNG BASES: The visualized lung bases are unremarkable. LIVER, GALLBLADDER, AND BILIARY TREE: There is question of mild cirrhotic changes of the liver with prominent left lobe and caudate lobe and slightly lobular contour. No focal liver lesion. The gallbladder has been removed. No biliary duct dilatation. There is question of stone versus surgical clip in the common bile duct. PANCREAS: Unremarkable. SPLEEN: Unremarkable. ADRENAL GLANDS: Unremarkable. KIDNEYS AND URETERS: There are several small right renal stones. There are several 2, 1 mm stones in the upper pole. There is a 3 mm stone in the lower pole. There are several 2, 1 and 2 mm stones in the lower pole. No left renal stone is seen. No hydronephrosis, ureteral dilatation or ureteral stone. BLADDER: Not optimally distended. GASTROINTESTINAL TRACT: There is diverticulosis of the colon. Small and large bowel is otherwise normal. The appendix is normal. The stomach is normal. ABDOMINAL WALL: No significant hernia is appreciated. LYMPH NODES: There is nonspecific small bowel mesentery scott mesentery sign and small, small bowel mesentery lymph nodes. No enlarged lymph nodes. No ascites. VASCULAR: Unremarkable. PELVIC VISCERA: Unremarkable. OSSEOUS STRUCTURES: Mild 3 mm anterior subluxation of L4 with respect to L5 similar to previous exam probably related to facet arthritis. Bony structures are otherwise unremarkable. CT/CT abdomen pelvis wo IV con IMPRESSION: Small nonobstructing right renal stones. Largest measures 3 mm in the lower pole. Question mild cirrhotic changes of the liver. Question vascular clip versus possible common bile duct stone. This could be better evaluated with MRCP if clinically indicated. Diverticulosis of the colon. Fleischner guidelines were followed.
== END 2022-05-12 08:18 | disposition home or self-care (01) ==
LOC: HO.CT 08:17
PROVIDERS: Visit Provider Urology
DX: N20.0 Calculus of kidney (principal)
CPT/HCPCS: 74176

== ENCOUNTER → 2022-05-24 08:31 | Outpatient (BNVA) | payer MEDICARE, MEDICAID, SELFPAY | PROVIDERS: PCP Family Medicine; Visit Provider Urology | DX: N20.0 Calculus of kidney (principal); M54.9 Dorsalgia, unspecified | CPT/HCPCS: 51798; 99212 ==

== ENCOUNTER → 2022-06-26 10:30 | Outpatient (BNVA) | payer MEDICARE, MEDICAID, SELFPAY | PROVIDERS: PCP Family Medicine; Visit Provider Surgery | DX: C82.80 Other types of follicular lymphoma, unspecified site (principal); D05.02 Lobular carcinoma in situ of left breast; M54.9 Dorsalgia, unspecified | CPT/HCPCS: 99202 ==

== ENCOUNTER 2022-08-21 13:23 | Emergency (ER) | payer MEDICARE, MEDICAID, SELFPAY ==
--- NOTE | ~2022-08-21 | CT_ITS ---
EXAMINATION: CT ABDOMEN AND PELVIS WITHOUT CONTRAST CLINICAL INFORMATION: lower abdominal pain. colitis?kidney stone? COMPARISON: 05/12/2022 TECHNIQUE: Multidetector volumetric imaging was performed from the lung bases through the pubic symphysis. Sagittal and coronal reformatted images were obtained on the technologist workstation. This CT examination was performed using dose optimization techniques as appropriate, variously including the following: *Automated exposure control *Adjustment of mA and/or kV according to patient size (this includes techniques or standardized protocols for targeted exams where dose is matched to indication/reason for exam; i.e. extremities or head) *Use of iterative reconstruction technique FINDINGS: The lack of intravenous contrast limits evaluation of the solid visceral organs including the liver, spleen, pancreas, and kidneys. LUNG BASES: The visualized lung bases are unremarkable. LIVER, GALLBLADDER, AND BILIARY TREE: There is a nodular hepatic contour suggesting underlying cirrhosis. Limited noncontrast evaluation is otherwise normal. Cholecystectomy clips. No biliary ductal dilatation. PANCREAS: Limited non-contrast evaluation is normal. No sea-pancreatic fluid. There is a gas fluid level within a duodenal diverticulum adjacent the head of the pancreas. SPLEEN: Limited non-contrast evaluation is normal. ADRENAL GLANDS: Normal; no adrenal mass. KIDNEYS AND URETERS: Right renal calculi, up to 5 mm, nonobstructing. No hydronephrosis bilaterally. GASTROINTESTINAL TRACT: Small hiatal hernia. Small bowel nondilated. Normal appendix. There is new focal wall thickening of the proximal sigmoid colon with adjacent fluid and fat stranding consistent with mild acute diverticulitis without abscess or perforation. ABDOMINAL WALL: Tiny fat-containing umbilical hernia. LYMPH NODES: There are numerous small subcentimeter central mesenteric lymph nodes with central mesenteric fluid and fat stranding, a scott mesentery appearance. The appearance is similar to the prior study 05/12/2022. VASCULAR: Normal caliber abdominal aorta. BLADDER: Unremarkable. PELVIC VISCERA: Unremarkable. OSSEOUS STRUCTURES: No acute or suspicious osseous abnormalities. CT/CT abdomen pelvis wo IV con IMPRESSION: New mild acute diverticulitis of the proximal sigmoid colon. No abscess or perforation. Similar appearance of subtle mesenteric fat stranding with numerous normal-sized lymph nodes. Consider attention on follow-up. Nodular hepatic contour consistent with cirrhosis.
--- NOTE | 2022-08-21 13:31 | ED.GENADULT ---
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 <Harriett Alvarez NP - Last Filed: 08/21/22 15:55> Related Data Home medications: Home Medications Medication Instructions Recorded Confirmed albuterol sulfate 90 mcg/actuation 2 puff inhalation Q4-6H PRN 05/03/20 07/04/22 aerosol inhaler Shortness Of Breath levothyroxine 88 mcg tablet 88 mcg PO DAILY 05/03/20 07/04/22 montelukast 10 mg tablet 10 mg PO DAILY 05/03/20 07/04/22 pantoprazole 40 mg tablet,delayed 40 mg PO DAILY 05/03/20 07/04/22 release cholecalciferol (vitamin D3) 25 25 mcg PO DAILY 05/14/20 07/04/22 mcg (1,000 unit) capsule cyanocobalamin (vitamin B-12) 1,000 mcg IM [id number] 05/14/20 07/04/22 1,000 mcg/mL injection solution ascorbic acid (vitamin C) 1,000 mg 1 g PO Q6H 11/11/20 07/04/22 tablet (Vitamin C) simethicone 125 mg tablet 250 mg PO BID PRN Gastrointestinal 11/11/20 07/04/22 Spasms Or Cramping meclizine 25 mg tablet 1 tab PO TID PRN Dizziness 12/12/21 07/04/22 beclomethasone dipropionate 80 1 inh inhalation BID 03/07/22 07/04/22 mcg/actuation HFA breath activated aerosol (Qvar RediHaler) dicyclomine 10 mg capsule 2 cap PO Q6H PRN Gastrointestinal 03/07/22 07/04/22 Spasms Or Cramping Previous Rx's Medication Instructions Recorded Magic Mouthwash 10 ml PO QID 240 days #240 mL 12/23/20 Diphen/Lido/Antacid 1:1:1 240 mL suspension Magic Mouthwash 10 ml PO QID #240 mL 01/05/22 Diphen/Lido/Antacid 1:1:1 240 mL suspension acetaminophen 300 mg-codeine 15 mg 1 tab PO Q6H PRN pain #8 tabs 08/21/22 tablet levofloxacin 500 mg tablet 500 mg PO DAILY 7 days #7 tabs 08/21/22 metronidazole 500 mg tablet 500 mg PO BID 7 days #14 tabs 08/21/22 <LILLIAN Meraz - Last Filed: 08/21/22 19:40> Allergies/adverse reactions: Allergies Allergy/AdvReac Type Severity Reaction Status Date / Time aspirin [ASPIRIN] Allergy Intermediate RASH Verified 06/26/22 10:57 Penicillins [PENICILLINS] Allergy Intermediate HIVES, BLACK Verified 06/26/22 10:57 SPOTS <LILLIAN Meraz - Last Filed: 08/21/22 19:40> Review of Systems Review of Systems: Yes all other systems are reviewed and are negative <Harriett Alvarez NP - Last Filed: 08/21/22 15:55> Constitutional: Constitutional: Reports no additional constitutional complaints, Denies body ache(s), Denies chills, Denies fever(s), Denies headache(s) and Denies weakness <Harriett Alvarez NP - Last Filed: 08/21/22 15:55> Eyes: Eyes: Reports no additional eye complaints and Denies change in vision <Harriett Alvarez NP - Last Filed: 08/21/22 15:55> ENT: Reports system reviewed and no additional complaints, except as documented, Denies dizziness, Denies headache(s), Denies nasal congestion, Denies nasal discharge and Denies neck pain <Harriett Alvarez NP - Last Filed: 08/21/22 15:55> Cardiovascular: Cardiovascular: Reports no additional cardiovascular complaints, Denies chest pain, Denies leg edema and Denies dyspnea <Harriett Alvarez NP - Last Filed: 08/21/22 15:55> Respiratory: Respiratory: Reports no additional respiratory complaints, Denies cough and Denies dyspnea <Harriett Alvarez NP - Last Filed: 08/21/22 15:55> Gastrointestinal: Gastrointestinal: Reports no additional gastrointestinal complaints, Reports abdominal pain, Denies diarrhea, Denies nausea and Denies vomiting <Harriett Alvarez NP - Last Filed: 08/21/22 15:55> Genitourinary: Genitourinary: Reports no additional female genitourinary complaints and Denies urinary incontinence <Harriett Alvarez NP - Last Filed: 08/21/22 15:55> Musculoskeletal: Musculoskeletal: Reports no additional musculoskeletal complaints, Denies back pain, Denies arthralgias, Denies joint swelling, Denies neck pain, Denies numbness and Denies tingling <Harriett Alvarez NP - Last Filed: 08/21/22 15:55> Integumentary/Breasts: Skin/Breast: Reports system reviewed and no additional complaints, except as docu and Denies rash <Harriett Alvarez NP - Last Filed: 08/21/22 15:55> Neurologic: Reports system reviewed and no additional complaints, except as documented, Denies dizziness, Denies headache(s), Denies numbness, Denies tingling and Denies weakness <Harriett Alvarez NP - Last Filed: 08/21/22 15:55> FORMERLY [facility] Past Medical History Attestation statement: The following information was validated with the patient. <Harriett Alvarez NP - Last Filed: 08/21/22 15:55> Source: old records reviewed and nursing notes reviewed <Harriett Alvarez NP - Last Filed: 08/21/22 15:55> Medical History: Medical History Aberrant thyroid gland Asthma B12 deficiency anemia Breast cancer, left breast Diverticulitis Diverticulosis GERD (gastroesophageal reflux disease) Hypothyroid IBS (irritable bowel syndrome) Lymphoma Primary osteoarthritis of knees, bilateral Pulmonary embolism Tubal ligation evaluation <LILLIAN Meraz - Last Filed: 08/21/22 19:40> Surgical History: Surgical History H/O colonoscopy History of bone marrow biopsy History of endoscopy History of esophagogastroduodenoscopy (EGD) History of lumpectomy of left breast History of removal of Port-a-Cath History of vocal cord polypectomy Hx of carpal tunnel repair Hx of cholecystectomy Hx of lithotripsy Hx of lymph node biopsy Hx of nasal septoplasty Hx of rotator cuff surgery <LILLIAN Meraz - Last Filed: 08/21/22 19:40> Family History Family History: Family History Mother Family hx of colon cancer Father Hx of kidney disease Brother History of throat cancer <LILLIAN Meraz - Last Filed: 08/21/22 19:40> Social History Social History: Social History Household Members: None Housing: Condominium Are you a primary adult caregiver to a significant other at home: No Do you presently have visiting nurse or other home services: Yes ([employer]) Alcohol intake: never Patient Tobacco Use Status: Never used Tobacco Second Hand Smoke Exposure: No Advance Directives: No Advance Directives Information Provided: Yes service: No Current occupational status: disabled Sexual orientation: Straight/Heterosexual Gender identity: Female <LILLIAN Meraz Last Filed: 08/21/22 19:40> Physical Exam ED Vital Signs: Vital Signs - 24 hr 08/21/22 13:32 Temperature 97.8 F Pulse Rate 86 Respiratory Rate 18 Pulse Oximetry 100 Oxygen Delivery Method Room Air BMI result Body Mass Index 30.2 <LILLIAN Meraz Last Filed: 08/21/22 19:40> Vital Signs - 24 hr 08/21/22 13:32 Temperature 97.8 F Pulse Rate 86 Respiratory Rate 18 Pulse Oximetry 100 Oxygen Delivery Method Room Air BMI result Body Mass Index 30.2 <Harriett Alvarez NP - Last Filed: 08/21/22 15:55> Const General: cooperative, healthy appearing, comfortable and no acute distress <Harriett Alvarez NP - Last Filed: 08/21/22 15:55> Orientation/consciousness: patient oriented x3 <Harriett Alvarez NP - Last Filed: 08/21/22 15:55> Limitations: no limitations <Harriett Alvarez NP - Last Filed: 08/21/22 15:55> HENMT Head: Yes normal to inspection <Harriett Alvarez NP - Last Filed: 08/21/22 15:55> Ears: hearing grossly normal bilaterally <Harriett Alvarez NP - Last Filed: 08/21/22 15:55> Eyes General: appearance normal, both eyes and all related structures <Harriett Alvarez NP - Last Filed: 08/21/22 15:55> Pupils: Equal, round and reactive pupils present <Harriett Alvarez NP - Last Filed: 08/21/22 15:55> Neck Neck: Yes normal visual inspection <Harriett Alvarez NP - Last Filed: 08/21/22 15:55> Chest Chest palpation & inspection: normal inspection of the chest <Harriett Alvarez NP - Last Filed: 08/21/22 15:55> Resp Effort & Inspection: normal respiratory effort <Harriett Alvarez NP - Last Filed: 08/21/22 15:55> Cardio Rate: regular rate <Harriett Alvarez NP - Last Filed: 08/21/22 15:55> Rhythm: regular rhythm <Harriett Alvarez NP - Last Filed: 08/21/22 15:55> Peripheral pulses: Peripheral pulses 2+ throughout <Harriett Alvarez NP - Last Filed: 08/21/22 15:55> GI Inspection: Yes normal to inspection <Harriett Alvarez NP - Last Filed: 08/21/22 15:55> Palpation (GI): Soft to palpation and Tenderness to palpation present (GI) (no rebound or guarding) in the LLQ <Harriett Alvarez NP - Last Filed: 08/21/22 15:55> General: Yes no CVA tenderness <Harriett Alvarez NP - Last Filed: 08/21/22 15:55> Back/Spine/Pelvis Back: no CVA tenderness <Harriett Alvarez NP - Last Filed: 08/21/22 15:55> Thoracic/Lumbar Spine: thoracic and lumbar spine normal to inspection <Harriett Alvarez NP - Last Filed: 08/21/22 15:55> Skin General skin exam: no rashes or lesions noted <Harriett Alvarez NP - Last Filed: 08/21/22 15:55> Neuro General: patient oriented x3 and moves all extremities <Harriett Alvarez NP - Last Filed: 08/21/22 15:55> Cranial nerves: Yes Equal, round and reactive pupils present <Harriett Alvarez NP - Last Filed: 08/21/22 15:55> Extrem General: Yes normal to inspection, Yes no pedal edema and Yes no calf tenderness <Harriett Alvarez NP - Last Filed: 08/21/22 15:55> Course Course Course Narrative: RME: 71 yold female presents to the ED for suprapubic/ leftlower abdominal pain for the past 3 days. patient states no dysuria, /hematuria. patient states pmh of diverticutlitis. LLQ tenderness on palpation. labs and CT scan ordered <LILLIAN Meraz - Last Filed: 08/21/22 19:40> Medical Decision Making Medical Decision Making MDM Narrative: 71 yo female with history of diverticulitis here with LLQ abdominal pain since Sunday with no other symptoms. LLQ TTP Will check labs, UA, CT A/P <Harriett Alvarez NP - Last Filed: 08/21/22 15:55> Differential Diagnosis Differential Diagnoses: The differential diagnosis associated with the presentation includes <TIM Camacho Last Filed: 08/21/22 15:55> pancreatitis, diveriticulitis <TIM Camacho Last Filed: 08/21/22 15:55> Admission/Observation Consideration of admission/observation: Escalation of care including admission/observation considered <Harriett Alvarez NP - Last Filed: 08/21/22 15:55> Pain well controlled, no vomiting, no leukocytosis or fever, no abscess or perf seen on CT scan-no need for admission <Harriett Alvarez NP - Last Filed: 08/21/22 15:55> Lab Data MDM Lab Attestation statement: I reviewed the patient's lab results. <Harriett Alvarez NP - Last Filed: 08/21/22 15:55> Result Diagrams: 08/21/22 13:48 08/21/22 13:48 <LILLIAN Meraz - Last Filed: 08/21/22 19:40> Labs: Lab Results 08/21/22 08/21/22 08/21/22 Range/Units 13:48 13:48 13:48 WBC 9.2 (4.8-10.8) X10*3/uL RBC 3.78 L (4.20-5.50) X10*6/uL Hgb 10.6 L (12.0-16.0) g/dl Hct 33.5 L (37.0-47.0) % MCV 88.6 (80.0-98.0) fL MCH 28.0 (27.0-33.0) pg MCHC 31.6 (31.0-35.0) g/dl RDW 14.7 (11.0-16.0) % Plt Count 159 L (160-400) X10*3/uL MPV 10.7 (9.4-12.3) fL Immature Gran % (Auto) 0.3 (0.0-0.4) % Neut % (Auto) 72.1 (45-73) % Lymph % (Auto) 14.8 L (20-40) % Hitchcock % (Auto) 12.4 H (2-11) % Eos % (Auto) 0.2 (0-4) % Baso % (Auto) 0.2 (0-2) % Lymph # (Auto) 1.4 (1.2-4.9) X10*3/uL Hitchcock # (Auto) 1.1 (0.1-1.2) X10*3/uL Eos # (Auto) 0.0 (0.0-0.4) X10*3/uL Baso # (Auto) 0.0 (0.0-0.2) X10*3/uL Abs Immat Gran (auto) 0.03 (0.00-0.03) X10*3/uL Absolute Neuts (auto) 6.6 (2.0-8.3) x10*3/uL Absolute Nucleated RBC 0.000 (0.0-0.012) X10*3/uL Nucleated RBC % (auto) 0.0 (0.0-0.2) /100WBC PT 14.2 H (10.0-13.1) SEC INR 1.2 H (0.9-1.1) APTT 31.7 (26.0-36.4) SEC Sodium 138 (135-145) mmol/L Potassium 4.5 (3.3-5.1) mmol/L Chloride 107 (96-108) mmol/L Carbon Dioxide 21 L (22-29) mmol/L Anion Gap 15 (12-20) BUN 9 (9-16) mg/dL Creatinine 0.77 (0.5-1.4) mg/dL Estim Creat Clear Calc 67.5 Estimated GFR > 60 Random Glucose 117 H (60-115) mg/dL Calcium 10.0 (8.4-10.2) mg/dL Total Bilirubin 0.6 (0.0-1.0) mg/dL AST 27 (5-31) U/L ALT 20 (0-31) U/L Alkaline Phosphatase 115 (39-117) U/L Total Protein 7.7 (6.5-8.0) g/dL Albumin 4.3 (3.5-5.0) g/dL Urine Color Urine Appearance Urine pH (5.0-9.0) Ur Specific Chavies (1.005-1.025) Urine Protein (Neg-Trace) mg/dL Urine Glucose (UA) (Negative) mg/dL Urine Ketones (Negative) mg/dL Urine Blood (Negative) Urine Nitrite (Negative) Ur Leukocyte Esterase (Negative) Urine RBC (0-2) /HPF Urine WBC (0-5) /HPF Ur Squamous Epith Cells (0-2) /HPF Urine Bacteria (None Seen) Hyaline Casts (0-2) /LPF 08/21/22 Range/Units 13:51 WBC (4.8-10.8) X10*3/uL RBC (4.20-5.50) X10*6/uL Hgb (12.0-16.0) g/dl Hct (37.0-47.0) % MCV (80.0-98.0) fL MCH (27.0-33.0) pg MCHC (31.0-35.0) g/dl RDW (11.0-16.0) % Plt Count (160-400) X10*3/uL MPV (9.4-12.3) fL Immature Gran % (Auto) (0.0-0.4) % Neut % (Auto) (45-73) % Lymph % (Auto) (20-40) % Hitchcock % (Auto) (2-11) % Eos % (Auto) (0-4) % Baso % (Auto) (0-2) % Lymph # (Auto) (1.2-4.9) X10*3/uL Hitchcock # (Auto) (0.1-1.2) X10*3/uL Eos # (Auto) (0.0-0.4) X10*3/uL Baso # (Auto) (0.0-0.2) X10*3/uL Abs Immat Gran (auto) (0.00-0.03) X10*3/uL Absolute Neuts (auto) (2.0-8.3) x10*3/uL Absolute Nucleated RBC (0.0-0.012) X10*3/uL Nucleated RBC % (auto) (0.0-0.2) /100WBC PT (10.0-13.1) SEC INR (0.9-1.1) APTT (26.0-36.4) SEC Sodium (135-145) mmol/L Potassium (3.3-5.1) mmol/L Chloride (96-108) mmol/L Carbon Dioxide (22-29) mmol/L Anion Gap (12-20) BUN (9-16) mg/dL Creatinine (0.5-1.4) mg/dL Estim Creat Clear Calc Estimated GFR Random Glucose (60-115) mg/dL Calcium (8.4-10.2) mg/dL Total Bilirubin (0.0-1.0) mg/dL AST (5-31) U/L ALT (0-31) U/L Alkaline Phosphatase (39-117) U/L Total Protein (6.5-8.0) g/dL Albumin (3.5-5.0) g/dL Urine Color Yellow Urine Appearance Clear Urine pH 6.5 (5.0-9.0) Ur Specific Chavies <= 1.005 (1.005-1.025) Urine Protein Negative (Neg-Trace) mg/dL Urine Glucose (UA) Negative (Negative) mg/dL Urine Ketones Negative (Negative) mg/dL Urine Blood Negative (Negative) Urine Nitrite Negative (Negative) Ur Leukocyte Esterase Trace H (Negative) Urine RBC 0-2 (0-2) /HPF Urine WBC 0-5 (0-5) /HPF Ur Squamous Epith Cells 0-2 (0-2) /HPF Urine Bacteria None Seen (None Seen) Hyaline Casts 0-2 (0-2) /LPF <LILLIAN Meraz - Last Filed: 08/21/22 19:40> Lab Results 08/21/22 08/21/22 08/21/22 Range/Units 13:48 13:48 13:48 WBC 9.2 (4.8-10.8) X10*3/uL RBC 3.78 L (4.20-5.50) X10*6/uL Hgb 10.6 L (12.0-16.0) g/dl Hct 33.5 L (37.0-47.0) % MCV 88.6 (80.0-98.0) fL MCH 28.0 (27.0-33.0) pg MCHC 31.6 (31.0-35.0) g/dl RDW 14.7 (11.0-16.0) % Plt Count 159 L (160-400) X10*3/uL MPV 10.7 (9.4-12.3) fL Immature Gran % (Auto) 0.3 (0.0-0.4) % Neut % (Auto) 72.1 (45-73) % Lymph % (Auto) 14.8 L (20-40) % Hitchcock % (Auto) 12.4 H (2-11) % Eos % (Auto) 0.2 (0-4) % Baso % (Auto) 0.2 (0-2) % Lymph # (Auto) 1.4 (1.2-4.9) X10*3/uL Hitchcock # (Auto) 1.1 (0.1-1.2) X10*3/uL Eos # (Auto) 0.0 (0.0-0.4) X10*3/uL Baso # (Auto) 0.0 (0.0-0.2) X10*3/uL Abs Immat Gran (auto) 0.03 (0.00-0.03) X10*3/uL Absolute Neuts (auto) 6.6 (2.0-8.3) x10*3/uL Absolute Nucleated RBC 0.000 (0.0-0.012) X10*3/uL Nucleated RBC % (auto) 0.0 (0.0-0.2) /100WBC PT 14.2 H (10.0-13.1) SEC INR 1.2 H (0.9-1.1) APTT 31.7 (26.0-36.4) SEC Sodium 138 (135-145) mmol/L Potassium 4.5 (3.3-5.1) mmol/L Chloride 107 (96-108) mmol/L Carbon Dioxide 21 L (22-29) mmol/L Anion Gap 15 (12-20) BUN 9 (9-16) mg/dL Creatinine 0.77 (0.5-1.4) mg/dL Estim Creat Clear Calc 67.5 Estimated GFR > 60 Random Glucose 117 H (60-115) mg/dL Calcium 10.0 (8.4-10.2) mg/dL Total Bilirubin 0.6 (0.0-1.0) mg/dL AST 27 (5-31) U/L ALT 20 (0-31) U/L Alkaline Phosphatase 115 (39-117) U/L Total Protein 7.7 (6.5-8.0) g/dL Albumin 4.3 (3.5-5.0) g/dL Urine Color Urine Appearance Urine pH (5.0-9.0) Ur Specific Chavies (1.005-1.025) Urine Protein (Neg-Trace) mg/dL Urine Glucose (UA) (Negative) mg/dL Urine Ketones (Negative) mg/dL Urine Blood (Negative) Urine Nitrite (Negative) Ur Leukocyte Esterase (Negative) Urine RBC (0-2) /HPF Urine WBC (0-5) /HPF Ur Squamous Epith Cells (0-2) /HPF Urine Bacteria (None Seen) Hyaline Casts (0-2) /LPF 08/21/22 Range/Units 13:51 WBC (4.8-10.8) X10*3/uL RBC (4.20-5.50) X10*6/uL Hgb (12.0-16.0) g/dl Hct (37.0-47.0) % MCV (80.0-98.0) fL MCH (27.0-33.0) pg MCHC (31.0-35.0) g/dl RDW (11.0-16.0) % Plt Count (160-400) X10*3/uL MPV (9.4-12.3) fL Immature Gran % (Auto) (0.0-0.4) % Neut % (Auto) (45-73) % Lymph % (Auto) (20-40) % Hitchcock % (Auto) (2-11) % Eos % (Auto) (0-4) % Baso % (Auto) (0-2) % Lymph # (Auto) (1.2-4.9) X10*3/uL Hitchcock # (Auto) (0.1-1.2) X10*3/uL Eos # (Auto) (0.0-0.4) X10*3/uL Baso # (Auto) (0.0-0.2) X10*3/uL Abs Immat Gran (auto) (0.00-0.03) X10*3/uL Absolute Neuts (auto) (2.0-8.3) x10*3/uL Absolute Nucleated RBC (0.0-0.012) X10*3/uL Nucleated RBC % (auto) (0.0-0.2) /100WBC PT (10.0-13.1) SEC INR (0.9-1.1) APTT (26.0-36.4) SEC Sodium (135-145) mmol/L Potassium (3.3-5.1) mmol/L Chloride (96-108) mmol/L Carbon Dioxide (22-29) mmol/L Anion Gap (12-20) BUN (9-16) mg/dL Creatinine (0.5-1.4) mg/dL Estim Creat Clear Calc Estimated GFR Random Glucose (60-115) mg/dL Calcium (8.4-10.2) mg/dL Total Bilirubin (0.0-1.0) mg/dL AST (5-31) U/L ALT (0-31) U/L Alkaline Phosphatase (39-117) U/L Total Protein (6.5-8.0) g/dL Albumin (3.5-5.0) g/dL Urine Color Yellow Urine Appearance Clear Urine pH 6.5 (5.0-9.0) Ur Specific Chavies <= 1.005 (1.005-1.025) Urine Protein Negative (Neg-Trace) mg/dL Urine Glucose (UA) Negative (Negative) mg/dL Urine Ketones Negative (Negative) mg/dL Urine Blood Negative (Negative) Urine Nitrite Negative (Negative) Ur Leukocyte Esterase Trace H (Negative) Urine RBC 0-2 (0-2) /HPF Urine WBC 0-5 (0-5) /HPF Ur Squamous Epith Cells 0-2 (0-2) /HPF Urine Bacteria None Seen (None Seen) Hyaline Casts 0-2 (0-2) /LPF <Harriett Alvarez NP - Last Filed: 08/21/22 15:55> Independent Interpretation I performed an independent interpretation of an: CT Scan (I indepedentely reviewed the CT scan which shows acute diverticulitis ) <Harriett Alvarez NP - Last Filed: 08/21/22 15:55> Radiology Impression Discussion of test interpretation with radiology: I have reviewed the radiologist's reading. <Harriett Alvarez NP - Last Filed: 08/21/22 15:55> Radiologist Impression: FINDINGS: The lack of intravenous contrast limits evaluation of the solid visceral organs including the liver, spleen, pancreas, and kidneys. LUNG BASES: The visualized lung bases are unremarkable.? LIVER, GALLBLADDER, AND BILIARY TREE: There is a nodular hepatic contour suggesting underlying cirrhosis. Limited noncontrast evaluation is otherwise normal. Cholecystectomy clips. No biliary ductal dilatation.? PANCREAS: Limited non-contrast evaluation is normal.? No sea-pancreatic fluid. There is a gas fluid level within a duodenal diverticulum adjacent the head of the pancreas. SPLEEN: Limited non-contrast evaluation is normal. ? ADRENAL GLANDS: Normal; no adrenal mass.? KIDNEYS AND URETERS: Right renal calculi, up to 5 mm, nonobstructing. No hydronephrosis bilaterally.? GASTROINTESTINAL TRACT: Small hiatal hernia. Small bowel nondilated. Normal appendix. There is new focal wall thickening of the proximal sigmoid colon with adjacent fluid and fat stranding consistent with mild acute diverticulitis without abscess or perforation.? ABDOMINAL WALL: Tiny fat-containing umbilical hernia.? LYMPH NODES: There are numerous small subcentimeter central mesenteric lymph nodes with central mesenteric fluid and fat stranding, a scott mesentery appearance. The appearance is similar to the prior study 05/12/2022. VASCULAR: Normal caliber abdominal aorta. BLADDER: Unremarkable.? PELVIC VISCERA: Unremarkable.? OSSEOUS STRUCTURES: No acute or suspicious osseous abnormalities.? CT/CT abdomen pelvis wo IV con IMPRESSION: New mild acute diverticulitis of the proximal sigmoid colon. No abscess or perforation. ? Similar appearance of subtle mesenteric fat stranding with numerous normal-sized lymph nodes. Consider attention on follow-up. ? Nodular hepatic contour consistent with cirrhosis. ? <Harriett Alvarez NP - Last Filed: 08/21/22 15:55> Prescription Management I considered prescription management with: Antibiotic <Harriett Alvarez NP - Last Filed: 08/21/22 15:55> Needs antibiotic for acute divert <Harriett Alvarez NP - Last Filed: 08/21/22 15:55> Discharge Plan Discharge Clinical Impression: Diverticulitis <LILLIAN Meraz - Last Filed: 08/21/22 19:40> Patient Disposition: Home, Self-Care <LILLIAN Meraz Last Filed: 08/21/22 19:40> Instructions: Diverticulitis (ED) <LILLIAN Meraz Last Filed: 08/21/22 19:40> Additional Instructions: Your CT scan shows diverticulitis Your blood work/urine sample are normal Take the medication as prescribed Return for worsening pain, vomiting, fever <LILLIAN Meraz - Last Filed: 08/21/22 19:40> Prescriptions: New metronidazole 500 mg tablet 500 mg PO BID 7 Days Qty: 14 0RF levofloxacin 500 mg tablet 500 mg PO DAILY 7 Days Qty: 7 0RF acetaminophen-codeine 300-15 mg tablet 1 tab PO Q6H PRN (Reason: pain) Qty: 8 0RF No Action Magic Mouthwash Diphen/Lido/Antacid 1:1:1 240 mL Suspension 10 ml PO QID Qty: 240 4RF Rx Instructions: Lidocaine Viscous 2 % 80mL; diphenhydramine 12.5 mg/5 mL 80mL; aluminum-mag hydrox-simeth [id number]/5mL 80mL ascorbic acid (vitamin C) [Vitamin C] 1,000 mg Tablet 1 g PO Q6H simethicone 125 mg Tablet 250 mg PO BID PRN (Reason: Gastrointestinal Spasms Or Cramping) Magic Mouthwash Diphen/Lido/Antacid 1:1:1 240 mL Suspension 10 ml PO QID 240 Days Qty: 240 3RF Rx Instructions: Lidocaine Viscous 2 % 80mL; diphenhydramine 12.5 mg/5 mL 80mL; aluminum-mag hydrox-simeth [id number]/5mL 80mL meclizine 25 mg tablet 1 tab PO TID PRN (Reason: Dizziness) dicyclomine 10 mg capsule 2 cap PO Q6H PRN (Reason: Gastrointestinal Spasms Or Cramping) Qvar RediHaler 80 mcg/actuation Hfa Aerosol Breath Activated 1 inh INHALATION BID montelukast 10 mg tablet 10 mg PO DAILY pantoprazole 40 mg tablet,delayed release (DR/EC) 40 mg PO DAILY levothyroxine 88 mcg tablet 88 mcg PO DAILY albuterol sulfate 90 mcg/actuation HFA aerosol inhaler 2 puff inhalation Q4-6H PRN (Reason: Shortness Of Breath) cholecalciferol (vitamin D3) 25 mcg (1,000 unit) capsule 25 mcg PO DAILY cyanocobalamin (vitamin B-12) 1,000 mcg/mL solution 1,000 mcg IM [id number] <LILLIAN Meraz - Last Filed: 08/21/22 19:40> Referrals: Sandy Rubi MD [Primary Care Provider] - 1 week <LILLIAN Meraz - Last Filed: 08/21/22 19:40> Interventions: ED Discharge Assessment Last Done: 08/21/22 16:04 <LILLIAN Meraz - Last Filed: 08/21/22 19:40> Discharge Date/Time: 08/21/22 16:05 <LILLIAN Meraz - Last Filed: 08/21/22 19:40>
[2022-08-21 13:32] VITALS: PULSE 86; RESP 18; TEMP 36.6; O2SAT 100; BMI 30.2
[2022-08-21 13:56] LABS: MANUAL DIFF FLAG NO
[2022-08-21 13:57] LABS: Basophils Percent Auto 0.2 % (0-2); Eosinophils Percent Auto 0.2 % (0-4); Hematocrit 33.5 % (37.0-47.0); Hemoglobin 10.6 g/dl (12.0-16.0); Imm Gran Abs Auto 0.03 X10*3/uL (0.00-0.03); Imm Gran Pct Auto 0.3 % (0.0-0.4); Lymphocytes Absolute Auto 1.4 X10*3/uL (1.2-4.9); Lymphocytes Percent Auto 14.8 % (20-40); Mean Corpuscular HGB Conc 31.6 g/dl (31.0-35.0); Mean Corpuscular Volume 88.6 fL (80.0-98.0); Mean Platelet Volume 10.7 fL (9.4-12.3); Monocytes Absolute Auto 1.1 X10*3/uL (0.1-1.2); Monocytes Percent Auto 12.4 % (2-11); Neutrophils Absolute Auto 6.6 x10*3/uL (2.0-8.3); Neutrophils Percent Auto 72.1 % (45-73); Platelet Count 159 X10*3/uL (160-400); Red Blood Count 3.78 X10*6/uL (4.20-5.50); Red Cell Distribution Width 14.7 % (11.0-16.0); White Blood Count 9.2 X10*3/uL (4.8-10.8)
[2022-08-21 13:58] LABS: Appearance Urine Clear; Color Urine Yellow; Glucose Urine UA Negative (Negative); Leukocyte Esterase Urine Trace (Negative); Nitrite Urine Negative (Negative); PH 6.5 (5.0-9.0); Specific Gravity - Urine <= 1.005 (1.005-1.025); UMIC TRIGGER UACC YES; Urine Blood Negative (Negative); Urine Ketones Negative (Negative); Urine Protein Negative (Neg-Trace)
[2022-08-21 14:01] LABS: Bacteria Urine None Seen (None Seen); Hyaline Casts Urine 0-2 /LPF (0-2); RBC Urine 0-2 /HPF (0-2); Squamous Epithelial Cell Urine 0-2 /HPF (0-2); WBC Urine 0-5 /HPF (0-5)
[2022-08-21 14:03] LABS: INTERNATIONAL NORM RATIO 1.2 (0.9-1.1); Prothrombin Time 14.2 SEC (10.0-13.1)
[2022-08-21 14:06] LABS: Partial Thromboplastin Time 31.7 SEC (26.0-36.4)
[2022-08-21 14:14] LABS: Alanine Aminotransferase 20 U/L (0-31); Albumin Level 4.3 g/dL (3.5-5.0); Alkaline Phosphatase 115 U/L (39-117); Anion Gap 15 (12-20); Aspartate Amino Transferase 27 U/L (5-31); Bilirubin Total 0.6 mg/dL (0.0-1.0); Blood Urea Nitrogen 9 mg/dL (9-16); Carbon Dioxide 21 mmol/L (22-29); Chloride 107 mmol/L (96-108); Creatinine Clr Calc Pharmacy 67.5; Estimated Glomerular Filt Rate > 60; Glucose Random 117 mg/dL (60-115); Potassium 4.5 mmol/L (3.3-5.1); Sodium 138 mmol/L (135-145); Total Protein 7.7 g/dL (6.5-8.0)
== END 2022-08-21 16:05 | disposition home or self-care (01) ==
PROVIDERS: Physician Assistant; Emergency Provider Emergency Medicine; PCP Family Medicine
DX: K57.32 Diverticulitis of large intestine without perforation or abscess without bleeding (principal); R10.32 Left lower quadrant pain; Z86.711 Personal history of pulmonary embolism
CPT/HCPCS: 36415; 74176; 80053; 81001; 85025; 85610; 85730; 99282; 99284

== ENCOUNTER 2022-09-26 08:35 | Outpatient (REF) | payer MEDICARE, MEDICAID, SELFPAY ==
--- NOTE | ~2022-09-26 | MM_ITS ---
EXAMINATION: MM SCREENING DIGITAL BREAST TOMOSYNTHESIS, BILATERAL CLINICAL INFORMATION: Screening. Asymptomatic. History of LCIS. The lifetime risk of breast cancer based on the Tyrer-Cuzick Model is 30%. Additional annual screening with breast MRI may be of benefit in women with a score of 20% or greater. COMPARISON: Mammography: September 20, 2021 and studies dating back to March 21, 2016 TECHNIQUE: Digital breast tomosynthesis is performed in both the craniocaudal and mediolateral oblique views along with computer-aided detection (CAD). Synthesized 2D images are generated from the tomosynthesis. FINDINGS: There are scattered areas of fibroglandular density (ACR BI-RADS breast composition Category b). There are no new significant masses, abnormal calcifications, or other abnormalities. MM/MM tomosynthesis screening BI IMPRESSION: No significant changes ASSESSMENT: BI-RADS 1: Negative RECOMMENDATION: Routine annual mammography screening. This patient's information was entered into a reminder system with a target due date for their next mammogram.
== END 2022-09-26 08:36 | disposition home or self-care (01) ==
LOC: HO.MAMMO 08:35
PROVIDERS: PCP Family Medicine; Visit Provider Family Medicine
DX: Z12.31 Encounter for screening mammogram for malignant neoplasm of breast (principal)
CPT/HCPCS: 77063; 77067

== ENCOUNTER 2022-10-09 09:54 | Outpatient (REF) | payer MEDICARE, MEDICAID, SELFPAY ==
--- NOTE | ~2022-10-09 | XR_ITS ---
EXAMINATION: XR ABDOMEN KUB CLINICAL INDICATION: Renal calculus. COMPARISON: CT abdomen and pelvis dated 08/21/2022; renal ultrasound dated 03/22/2022; KUB dated 09/17/2020. TECHNIQUE: 3 AP views of the abdomen and pelvis are submitted. FINDINGS: The bowel gas pattern is normal, with no evidence of ileus or obstruction. At the lower pole, a 5 mm nonobstructing calculus is seen. There are right upper quadrant surgical clips. Vertical midline amandeep are noted. There are pelvic phleboliths. No acute osseous abnormality is seen. XR/XR KUB IMPRESSION: A 5 mm nonobstructing right renal calculus is seen.
== END 2022-10-09 09:55 | disposition home or self-care (01) ==
LOC: HO.XRAY 09:54
PROVIDERS: PCP Family Medicine; Visit Provider Urology
DX: N20.0 Calculus of kidney (principal)
CPT/HCPCS: 74018

== ENCOUNTER → 2022-10-17 09:27 | Outpatient (BNVA) | payer MEDICARE, MEDICAID, SELFPAY | PROVIDERS: PCP Family Medicine; Visit Provider Nurse Practitioner Family | DX: N20.0 Calculus of kidney (principal) | CPT/HCPCS: Q3014 ==

== ENCOUNTER 2022-12-28 08:01 | Outpatient (REF) | payer MEDICARE, MEDICAID, SELFPAY ==
--- NOTE | ~2022-12-28 | MM_ITS ---
EXAMINATION: BONE DENSITOMETRY CLINICAL INDICATION: Osteopenia. COMPARISON: Previous BD dated 04/08/2020 and baseline BD dated 02/21/2007. TECHNIQUE: Using a [employer] DXA System (software version: 13.1) manufactured by [employer], dual-energy x-ray absorptiometry was performed of the lumbar spine and left hip. The images are of good technical quality. Summary results are attached. FINDINGS: AP SPINE L1-L4: Current: BMD 1.024 g/cm2, Z-score -0.1, T-score -1.3, osteopenia, 4.5% decrease from previous, 3.8% decrease from baseline (<5% change is not significant). Prior: BMD 1.072 g/cm2. Baseline: BMD 1.064 g/cm2. LEFT FEMUR, NECK: Current: BMD 0.875 g/cm2, Z-score 0.3, T-score -1.2, osteopenia. Prior: BMD 0.883 g/cm2. Baseline: BMD 0.999 g/cm2. LEFT FEMUR, TOTAL: Current: BMD 0.959 g/cm2, Z-score 0.9, T-score -0.4, normal, 2.3% decrease from previous, 13.0% decrease from baseline (<5% change is not significant). Prior: BMD 0.982 g/cm2. Baseline: BMD 1.102 g/cm2. IDENTIFIED RISK FACTORS: Menopause, osteoporosis, height loss, low calcium intake. HISTORY OF FRACTURE: None listed. MEDICATIONS: Vitamin D. MM/XR DEXA axial skeleton IMPRESSION: 1. DIAGNOSIS: Osteopenia based on the lowest T-score value of -1.3 in the lumbar spine applying World Health Organization criteria. 2. 10-YEAR FRACTURE RISK PREDICTION, FRAX: Major osteoporotic fracture (clinical spine, forearm, hip or shoulder) 5.4%. Hip fracture 0.8%. 3. Treatment Recommendations: NOF guidelines recommend consideration for treatment in postmenopausal women and men age 50 and older presenting with the following: -A hip or vertebral (clinical or morphometric) fracture. -T-score less than or equal to -2.5 at the femoral neck or spine after appropriate evaluation to exclude secondary causes. -Low bone mass at the hip or spine and a 10-year fracture probability by FRAX of greater than or equal to 3% for hip fracture or greater than or equal to 20% for major osteoporotic fracture based on the [place] adapted WHO algorithm. 4. Other Recommendations: All treatment decisions require clinical judgment and consideration of individual patient factors, including patient preferences, comorbidities, previous drug use, risk factors not captured in the FRAX model (e.g. frailty, falls, vitamin D deficiency, increased bone turnover, interval significant decline in bone density) and possible under or overestimation of fracture risk by FRAX. Additional medical evaluation for secondary cause of low bone mineral density may be appropriate. FUTURE SCAN RECOMMENDATION: People with diagnosed cases of osteoporosis or at high risk for fracture should have regular bone mineral density tests. For patients eligible for Medicare, routine testing is allowed once every 2 years. The testing frequency can be increased to one year for patients who have rapidly progressing disease, those who are receiving or discontinuing medical therapy to restore bone mass, or have additional risk factors.
== END 2022-12-28 08:02 | disposition home or self-care (01) ==
LOC: HO.MAMMO 08:01
PROVIDERS: PCP Family Medicine; Visit Provider Family Medicine
DX: Z13.820 Encounter for screening for osteoporosis (principal); Z78.0 Asymptomatic menopausal state; M85.859 Other specified disorders of bone density and structure, unspecified thigh
CPT/HCPCS: 77080

== ENCOUNTER 2023-01-02 08:08 | Outpatient (REF) | payer MEDICARE, MEDICAID, SELFPAY ==
--- NOTE | ~2023-01-02 | US_ITS ---
EXAMINATION: US RETROPERITONEAL LIMITED (RENAL ONLY) CLINICAL INFORMATION: Calculus of kidney. COMPARISON: X-ray KUB 10/09/2022 and 09/17/2020. CT abdomen and pelvis 08/21/2022. Ultrasound bladder 03/23/2022. Renal ultrasound 03/22/2022. TECHNIQUE: Real-time imaging of the kidneys. FINDINGS: RIGHT KIDNEY: 11.7 x 6.2 x 5.3 cm (SAG x AP x TRV). The kidney is normal in size, contour, and echogenicity. Renal cortical thickness is normal. 8 x 4 x 7 mm stone in the midpole. No focal parenchymal lesions or hydronephrosis. LEFT KIDNEY: 11.9 x 6.1 x 4.9 cm (SAG x AP x TRV). The kidney is normal in size, contour, and echogenicity. Renal cortical thickness is normal. No calculi or focal parenchymal lesions. No hydronephrosis. US/US renal BI IMPRESSION: Right renal stone.
== END 2023-01-02 08:09 | disposition home or self-care (01) ==
LOC: HO.US 08:08
PROVIDERS: PCP Family Medicine; Visit Provider Nurse Practitioner Family
DX: N20.0 Calculus of kidney (principal)
CPT/HCPCS: 76775

== ENCOUNTER → 2023-01-24 13:00 | Outpatient (BNVA) | payer MEDICARE, MEDICAID, SELFPAY | PROVIDERS: PCP Family Medicine; Visit Provider Nurse Practitioner Family | DX: N20.0 Calculus of kidney (principal); R10.9 Unspecified abdominal pain | CPT/HCPCS: 99212 ==

== ENCOUNTER 2023-02-07 08:53 | Day surgery (SDC) | payer MEDICARE, MEDICAID, SELFPAY ==
[2023-02-02 09:19] VITALS: BMI 30.2
--- NOTE | 2023-02-05 09:40 | HO.ANESPROP2 ---
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 (Acute) Abdominal lymphadenopathy (Acute) Follicular low grade B-cell lymphoma (Acute) Abnormal mammogram of left breast (Acute) Left renal stone (Acute) Pulmonary embolism (Acute) B12 deficiency anemia (Acute) Past Medical History Medical History Aberrant thyroid gland Asthma B12 deficiency anemia Breast cancer, left breast Diverticulitis Diverticulosis GERD (gastroesophageal reflux disease) Hypothyroid IBS (irritable bowel syndrome) Lymphoma Primary osteoarthritis of knees, bilateral Pulmonary embolism Tubal ligation evaluation Family History Family History Mother Family hx of colon cancer Father Hx of kidney disease Brother History of throat cancer Family history of problems with anesthesia: No Surgical History Surgical History H/O colonoscopy History of bone marrow biopsy History of endoscopy History of esophagogastroduodenoscopy (EGD) History of lumpectomy of left breast History of removal of Port-a-Cath History of vocal cord polypectomy Hx of carpal tunnel repair Hx of cholecystectomy Hx of lithotripsy Hx of lymph node biopsy Hx of nasal septoplasty Hx of rotator cuff surgery History of Problems with Anesthesia: No Social History Social History Household Members: None Housing: Condominium Are you a primary manager intensive care unit to a significant other at home: No 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) Alcohol intake: never Patient Tobacco Use Status: Never used Tobacco Second Hand Smoke Exposure: No Use of substances other than those prescribed or required for medical reasons: No Are you DNR?: No Advance Directives: No Advance Directives Information Provided: Yes service: No Current occupational status: disabled Sexual orientation: Straight/Heterosexual Gender identity: Female Meds Allergies Allergy/AdvReac Type Severity Reaction Status Date / Time aspirin [ASPIRIN] Allergy Intermediate RASH Verified 01/24/23 14:47 Penicillins [PENICILLINS] Allergy Intermediate HIVES, BLACK Verified 01/24/23 14:47 SPOTS Home Medications Medication Instructions Recorded Confirmed Last Taken Type albuterol sulfate 90 mcg/actuation 2 puff inhalation Q4-6H PRN 05/03/20 02/07/23 Unknown History aerosol inhaler Shortness Of Breath levothyroxine 88 mcg tablet 88 mcg PO DAILY 05/03/20 02/02/23 02/07/23 History montelukast 10 mg tablet 10 mg PO DAILY 05/03/20 02/02/23 Unknown History pantoprazole 40 mg tablet,delayed 40 mg PO DAILY 05/03/20 02/02/23 02/07/23 History release cholecalciferol (vitamin D3) 25 25 mcg PO DAILY 05/14/20 02/02/23 Unknown History mcg (1,000 unit) capsule cyanocobalamin (vitamin B-12) 1,000 mcg IM [id number] 05/14/20 02/02/23 Unknown History 1,000 mcg/mL injection solution ascorbic acid (vitamin C) 1,000 mg 1 g PO Q6H 11/11/20 02/07/23 Unknown History tablet (Vitamin C) simethicone 125 mg tablet 250 mg PO BID PRN Gastrointestinal 11/11/20 02/02/23 Unknown History Spasms Or Cramping meclizine 25 mg tablet 1 tab PO TID PRN Dizziness 12/12/21 02/02/23 Unknown History dicyclomine 10 mg capsule 2 cap PO Q6H PRN Gastrointestinal 03/07/22 02/02/23 Unknown History Spasms Or Cramping Exam Exam Date and Time: February 05, 2023 0940 Height,Weight and Vital Signs: Height 5 ft 4 in Weight 79.832 kg Pertinent Lab Results Pertinent Lab Results: Laboratory Tests 10/05/22 10/05/22 07:43 07:43 WBC 4.2 L Hgb 10.9 L Hct 34.2 L Plt Count 151 L Sodium 142 Potassium 4.2 Chloride 109 H Carbon Dioxide 27 BUN 10 Creatinine 0.72 Narrative Narrative: ECHO 2020 Conclusions: - The left ventricular systolic function is normal.? The visually estimated ejection fraction is between 60-65%. ? Findings Left Ventricle Normal left ventricular cavity size.? There is normal left ventricular wall thickness.? The left ventricular systolic function is normal.? The visually estimated ejection fraction is between 60-65%.? There is no evidence of regional wall motion abnormalities.? Diastolic function is normal for age. LV global longitudinal strain -11.1%, which is diminished but likely from poor endocardial tracking. Assessment and Plan Assessment Anesthesia Assessment: Chart Reviewed Final Anesthetic Review Family History of Problems with Anesthesia: No History of Problems with Anesthesia: No Documented by User: Jerrica Wilkerson MD 02/07/23 12:00 [facility] Past Medical History Medical History Aberrant thyroid gland Asthma B12 deficiency anemia Breast cancer, left breast Diverticulitis Diverticulosis GERD (gastroesophageal reflux disease) Hypothyroid IBS (irritable bowel syndrome) Lymphoma Primary osteoarthritis of knees, bilateral Pulmonary embolism Tubal ligation evaluation Family History Family History Mother Family hx of colon cancer Father Hx of kidney disease Brother History of throat cancer Surgical History Surgical History H/O colonoscopy History of bone marrow biopsy History of endoscopy History of esophagogastroduodenoscopy (EGD) History of lumpectomy of left breast History of removal of Port-a-Cath History of vocal cord polypectomy Hx of carpal tunnel repair Hx of cholecystectomy Hx of lithotripsy Hx of lymph node biopsy Hx of nasal septoplasty Hx of rotator cuff surgery Social History Social History Household Members: None Housing: Condominium Are you a primary manager intensive care unit to a significant other at home: No 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) Alcohol intake: never Patient Tobacco Use Status: Never used Tobacco Second Hand Smoke Exposure: No Use of substances other than those prescribed or required for medical reasons: No Are you DNR?: No Advance Directives: No Advance Directives Information Provided: Yes service: No Current occupational status: disabled Sexual orientation: Straight/Heterosexual Gender identity: Female Meds Allergies Allergy/AdvReac Type Severity Reaction Status Date / Time aspirin [ASPIRIN] Allergy Intermediate RASH Verified 01/24/23 14:47 Penicillins [PENICILLINS] Allergy Intermediate HIVES, BLACK Verified 01/24/23 14:47 SPOTS Home Medications Medication Instructions Recorded Confirmed Last Taken Type albuterol sulfate 90 mcg/actuation 2 puff inhalation Q4-6H PRN 05/03/20 02/07/23 Unknown History aerosol inhaler Shortness Of Breath levothyroxine 88 mcg tablet 88 mcg PO DAILY 05/03/20 02/02/23 02/07/23 History montelukast 10 mg tablet 10 mg PO DAILY 05/03/20 02/02/23 Unknown History pantoprazole 40 mg tablet,delayed 40 mg PO DAILY 05/03/20 02/02/23 02/07/23 History release cholecalciferol (vitamin D3) 25 25 mcg PO DAILY 05/14/20 02/02/23 Unknown History mcg (1,000 unit) capsule cyanocobalamin (vitamin B-12) 1,000 mcg IM [id number] 05/14/20 02/02/23 Unknown History 1,000 mcg/mL injection solution ascorbic acid (vitamin C) 1,000 mg 1 g PO Q6H 11/11/20 02/07/23 Unknown History tablet (Vitamin C) simethicone 125 mg tablet 250 mg PO BID PRN Gastrointestinal 11/11/20 02/02/23 Unknown History Spasms Or Cramping meclizine 25 mg tablet 1 tab PO TID PRN Dizziness 12/12/21 02/02/23 Unknown History dicyclomine 10 mg capsule 2 cap PO Q6H PRN Gastrointestinal 03/07/22 02/02/23 Unknown History Spasms Or Cramping Exam Airway Mallampati Class: II TM Dist: >3cm Neck ROM: Full Denture: Upper Heart: rrr Lungs: cta Assessment and Plan Assessment Anesthesia Assessment: Anesthesia Plan Discussed Final Anesthetic Review NPO: Yes ASA Class: III Final Preanesthetic Review: No Changes in Pt Med Stat, Meds/Allgs Chart Reviewed, Consent Obtained/Reviewed and Anes Risks/Benef Reviewed Patient Risk: Low Procedure Risk: Low Anesthetic Plan Anesthetic Plan: GA Disposition: Standard PACU
[2023-02-07 10:25] VITALS: BMI 30.4
[2023-02-07 10:28] VITALS: BP 116/65; PULSE 75; RESP 18; TEMP 36.1; O2SAT 95
--- NOTE | 2023-02-07 12:39 | W.PM.OPN ---
Operative Note Operative Note Date of Service: 02/07/23 Narrative: PreOperative Diagnosis:? ? Right Renal stone Post Operative Diagnosis:?Right? Renal stone Procedure:?Right? ESWL Surgeon:?Dr Nasim Altman Anesthesia:? General Indications for procedure: The patient understands ESWL may be a staged procedure and subsequent intervention may be required based on imaging after ESWL.? They also understand? there is a risk of bleeding to the kidney, infection, damage to adjacent organs, and stone migration following the procedure. - Imaging 7 mm mid pole stone Procedure: After informed consent was verified the patient was brought to the operating room and placed in a supine position.? Anesthesia was performed per protocol. Safety pause time-out was performed. Imaging was displayed in the room and laterality confirmed. ESWL was performed.?The stone was visualized on ultrasound.? Shockwave lithotripsy was performed, after the first 300 shocks a pause for 3 minutes.? A total of 2500 shocks to a maximum of power of 18 with a maximum rate of 120 hertz.? Some fragmentation of the stone was appreciated. The patient tolerated the procedure well and was transferred to the recovery area upon completion. Complications: None
[2023-02-07 12:43] VITALS: BP 129/67; PULSE 64; RESP 16; TEMP 36.4; O2SAT 100
[2023-02-07 12:48] VITALS: BP 125/60; PULSE 65; RESP 16; O2SAT 97
[2023-02-07 12:53] VITALS: BP 118/61; PULSE 62; RESP 16; O2SAT 96
[2023-02-07 12:58] VITALS: BP 125/64; PULSE 62; RESP 18; O2SAT 96
[2023-02-07 13:13] VITALS: BP 124/66; PULSE 65; RESP 14; TEMP 36.4; O2SAT 97
== END 2023-02-07 13:44 | disposition home or self-care (01) ==
PROVIDERS: PCP Family Medicine; Visit Provider Urology
PROC: (CPT 50590; principal; 2023-02-07 11:10)
DX: N20.0 Calculus of kidney (principal); Z87.442 Personal history of urinary calculi; D51.9 Vitamin B12 deficiency anemia, unspecified; J45.909 Unspecified asthma, uncomplicated; I26.99 Other pulmonary embolism without acute cor pulmonale; K21.9 Gastro-esophageal reflux disease without esophagitis; E03.9 Hypothyroidism, unspecified; Z79.51 Long term (current) use of inhaled steroids; Z79.899 Other long term (current) drug therapy; Z88.0 Allergy status to penicillin; Z88.8 Allergy status to other drugs, medicaments and biological substances; Z85.3 Personal history of malignant neoplasm of breast; Z98.890 Other specified postprocedural states
CPT/HCPCS: 50590; 74018; J0131; J0690; J1100; J1940; J2370; J2371; J2405; J3010

== ENCOUNTER 2023-02-23 06:23 | Emergency (ER) | payer MEDICARE, MEDICAID, SELFPAY ==
--- NOTE | ~2023-02-23 | XR_ITS ---
EXAMINATION: XR KNEE, RIGHT CLINICAL INFORMATION: Pain COMPARISON: 04/05/2020 plain films. TECHNIQUE: Four views of the right knee. FINDINGS: No significant joint effusion. Bones are normal anatomic alignment with no acute fracture or dislocation seen. Degenerative changes are present more so in the patellofemoral compartment where there is more significant subchondral changes along the superior articular surface of the patella. There is subtle joint space loss in the medial more so the lateral compartments with small osteophyte formation. These degenerative changes do appear to slightly progressed from the 2020 study. Coarsened calcifications are again seen within the medullary aspect of the distal femoral metaphysis as noted on the prior plain film as well. This could represent a chronic bone infarct or a low-grade chondromatous lesion such as enchondroma. XR/XR knee RT 4V IMPRESSION: No acute fracture or dislocation. Chronic appearing and degenerative changes as described above. The degenerative changes do appear to be progressed from the 2020 plain film study. Coarsened calcifications within the medullary aspect of the distal femoral metaphysis. This could represent a chronic bone infarct or a low-grade chondromatous lesion such as enchondroma.
[2023-02-23 06:27] VITALS: BP 141/66; PULSE 84; RESP 18; TEMP 36.8; O2SAT 99; BMI 32.4
[2023-02-23 06:37] VITALS: BP 141/66; PULSE 82; RESP 16; TEMP 36.7; O2SAT 98
[2023-02-23] MEDS: predniSONE 20 MG TABLET 60 MG PO (07:53)
[2023-02-23] MEDS: Acetaminophen 325 MG TABLET 975 MG PO (07:53)
--- NOTE | 2023-02-23 07:57 | PC.NURSE ---
pt a&ox3. respirations even and unlabored. pt reports 7/10 pain in the right knee, pt medicated per order.
--- NOTE | 2023-02-23 09:51 | ED_ITS ---
HPI - General Adult General Chief complaint: Extremity Problem Stated complaint: R leg pain no inj Time Seen by Provider: 02/23/23 06:39 Source: patient Mode of arrival: ambulatory Limitations: no limitations History of Present Illness HPI narrative: 72 yold female with pmh of Lobular carciona, PE, AMANDA positive presents to the ED for right knee pain for weeks without any trauma. patient states no knee redness, fever, chills, deformity, calf pain, or leg swelling. Patient states weeks ago she was moving an object and she turned her right knee the wrong way and ever since has had pain. Related Data Home Medications Medication Instructions Recorded Confirmed albuterol sulfate 90 mcg/actuation 2 puff inhalation Q4-6H PRN 05/03/20 02/07/23 aerosol inhaler Shortness Of Breath levothyroxine 88 mcg tablet 88 mcg PO DAILY 05/03/20 02/02/23 montelukast 10 mg tablet 10 mg PO DAILY 05/03/20 02/02/23 pantoprazole 40 mg tablet,delayed 40 mg PO DAILY 05/03/20 02/02/23 release cholecalciferol (vitamin D3) 25 25 mcg PO DAILY 05/14/20 02/02/23 mcg (1,000 unit) capsule cyanocobalamin (vitamin B-12) 1,000 mcg IM [id number] 05/14/20 02/02/23 1,000 mcg/mL injection solution ascorbic acid (vitamin C) 1,000 mg 1 g PO Q6H 11/11/20 02/07/23 tablet (Vitamin C) simethicone 125 mg tablet 250 mg PO BID PRN Gastrointestinal 11/11/20 02/02/23 Spasms Or Cramping meclizine 25 mg tablet 1 tab PO TID PRN Dizziness 12/12/21 02/02/23 dicyclomine 10 mg capsule 2 cap PO Q6H PRN Gastrointestinal 03/07/22 02/02/23 Spasms Or Cramping ciprofloxacin HCl 500 mg tablet 500 mg PO BID 02/23/23 metronidazole 500 mg tablet mg PO 02/23/23 Previous Rx's Medication Instructions Recorded acetaminophen 300 mg-codeine 15 mg 1 tab PO Q6H PRN pain #8 tabs 08/21/22 tablet Magic Mouthwash 10 ml PO QID #240 mL 10/05/22 Diphen/Lido/Antacid 1:1:1 240 mL suspension oxycodone-acetaminophen 5 mg-325 1 tab PO Q6-8H PRN pain #6 tabs 02/07/23 mg tablet (Percocet) oxycodone 5 mg capsule 5 mg PO TID PRN pain 3 days #9 caps 02/23/23 prednisone 20 mg tablet 40 mg PO DAILY 5 days #10 tabs 02/23/23 Allergies Allergy/AdvReac Type Severity Reaction Status Date / Time aspirin [ASPIRIN] Allergy Intermediate RASH Verified 02/23/23 13:11 Penicillins [PENICILLINS] Allergy Intermediate HIVES, BLACK Verified 02/23/23 13:11 SPOTS Review of Systems Review of Systems: RIght knee pain Yes all other systems are reviewed and are negative [facility] Past Medical History Medical History Aberrant thyroid gland Asthma B12 deficiency anemia Breast cancer, left breast Diverticulitis Diverticulosis GERD (gastroesophageal reflux disease) Hypothyroid IBS (irritable bowel syndrome) Lymphoma Primary osteoarthritis of knees, bilateral Pulmonary embolism Tubal ligation evaluation Surgical History H/O colonoscopy History of bone marrow biopsy History of endoscopy History of esophagogastroduodenoscopy (EGD) History of lumpectomy of left breast History of removal of Port-a-Cath History of vocal cord polypectomy Hx of carpal tunnel repair Hx of cholecystectomy Hx of lithotripsy Hx of lymph node biopsy Hx of nasal septoplasty Hx of rotator cuff surgery Family History Family History Mother Family hx of colon cancer Father Hx of kidney disease Brother History of throat cancer Social History Social History Household Members: None Housing: Condominium Are you a primary medicare insurance specialist to a significant other at home: No Do you presently have visiting nurse 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) Alcohol intake: never Patient Tobacco Use Status: Never used Tobacco Second Hand Smoke Exposure: No service: No Current occupational status: disabled Sexual orientation: Straight/Heterosexual Gender identity: Female Physical Exam ED Vital Signs: Vital Signs - 24 hr 02/23/23 06:27 07/21/23 06:37 Temperature 98.2 F 98.0 F Pulse Rate 84 82 Respiratory Rate 18 16 Blood Pressure 141/66 H 141/66 H Pulse Oximetry 99 98 Oxygen Delivery Method Room Air Room Air BMI result Body Mass Index 32.4 Const General: cooperative, healthy appearing, comfortable, no acute distress, well developed, alert, awake and Physically active Orientation/consciousness: oriented to person, oriented to place, oriented to time and patient oriented x3 [facility] Head: Yes normal to inspection, Yes No palpable skull fracture present, Yes normocephalic, Yes atraumatic and No abrasion Eyes General: appearance normal, both eyes and all related structures Neck Neck: Yes normal visual inspection, Yes full ROM, Yes no lymphadenopathy, Yes no meningeal signs, Yes trachea midline, Yes supple, No anterior neck swelling and No tender Chest Chest palpation & inspection: normal inspection of the chest and normal palpation of entire chest wall Resp Effort & Inspection: normal respiratory effort and able to speak in complete sentences Auscultation: clear to auscultation bilaterally Cardio Jugular venous distension: no JVD Heart sounds: S1 normal heart sound present and S2 normal heart sound present GI Inspection: Yes normal to inspection and No abdominal wall ecchymosis Palpation (GI): Soft to palpation, not firm, nontender and not rigid General: No CVA tenderness and Yes no CVA tenderness Back/Spine/Pelvis Back: no CVA tenderness, No CVA tenderness and No back tenderness Skin General skin exam: no rashes or lesions noted and elasticity normal Neuro General: oriented to person, oriented to place, oriented to time, patient oriented x3, gait normal, tone normal, moves all extremities, Normal light touch and pain sensation, no meningeal signs, no focal motor deficits, CN's II-XI intact bilaterally and normal sensation to monofilament Extrem General: Yes normal to inspection and Yes full ROM Knee images: 1. Tenderness on palpation. Negative for redness, ecchymosis, crepitus, d eformity, swelling, stiffness. Popliteal pulse intact. Rest of extremity normal. Negative for leg swelling, calf pain, palpable cord, bluish black discoloration, or deformity. Motor/neuro/vascular exam intact. Psych Appearance: grossly normal, well kempt and not disheveled Course Course Course Narrative: Right knee pain Medications Administered Discontinued Medications Generic Name Dose Route Start Last Admin Trade Name Jose PRN Reason Stop Dose Admin Acetaminophen 975 mg 02/23/23 06:50 02/23/23 07:53 Acetaminophen 325 Mg Tablet PO 02/23/23 06:51 975 mg ONCE ONE Administration Prednisone 60 mg 02/23/23 06:50 02/23/23 07:53 Prednisone 20 Mg Tablet PO 02/23/23 06:51 60 mg ONCE ONE Administration Medical Decision Making Medical Decision Making MDM Narrative: Symmetry old female history of breast CA, PE, and lymphoma presents to ED for right knee pain after sudden movement weeks ago. Patient denies any knee swelling, redness, leg swelling, calf pain, coughing up blood, chest pain, shortness of breath. Knee exam positive for only tenderness on palpation negative for erythema, swelling, stiffness, or deformity. Rest of extremity normal. X-ray shows severe degenerative joint disease and also enchondroma. Patient made aware enchondroma and she will follow up with the PCP and oncologist Dr. Polanco. Patient informed enchondroma may need to be biopsied. Differential Diagnosis Differential Diagnoses: The differential diagnosis associated with the presentation includes (Knee fracture, septic joint, knee dislocation, DVT, cellulitis, lymphangitis, compartment syndrome, fracture, or arterial occlusion.) Admission/Observation Consideration of admission/observation: Escalation of care including admission/observation considered Independent Interpretation I performed an independent interpretation of an: Plain X-Ray Radiology Impression Discussion of test interpretation with radiology: I have reviewed the radiologist's reading. External Record Review External record reviewed: Other (Prior ED visits) Prescription Management I considered prescription management with: Pain Medication Discharge Plan Discharge Clinical Impression: Arthritis of knee, right, Enchondroma of femur Patient Disposition: Home, Self-Care Instructions: Osteoarthritis (ED) Additional Instructions: X-ray of the knee shows severe arthritis and also enchondroma of distal femur. You were given copy of x-ray results to follow up with primary care provider and Dr. Polanco. Return to the ED immediately for any knee swelling, redness, leg swelling, calf pain, chest pain, shortness of breath, fever, chills, red streaks, bluish black discoloration, hotness, coldness, trouble walking, or any other concerning symptoms. Prescriptions: New prednisone 20 mg tablet 40 mg PO DAILY 5 Days Qty: 10 0RF oxycodone 5 mg capsule 5 mg PO TID PRN (Reason: pain) 3 Days Qty: 9 0RF Rx Instructions: Partial Fill upon patient request. No Action ascorbic acid (vitamin C) [Vitamin C] 1,000 mg Tablet 1 g PO Q6H simethicone 125 mg Tablet 250 mg PO BID PRN (Reason: Gastrointestinal Spasms Or Cramping) meclizine 25 mg tablet 1 tab PO TID PRN (Reason: Dizziness) Magic Mouthwash Diphen/Lido/Antacid 1:1:1 240 mL Suspension 10 ml PO QID Qty: 240 6RF Rx Instructions: Lidocaine Viscous 2 % 80mL; diphenhydramine 12.5 mg/5 mL 80mL; aluminum-mag hydrox-simeth [id number]/5mL 80mL acetaminophen-codeine 300-15 mg tablet 1 tab PO Q6H PRN (Reason: pain) Qty: 8 0RF dicyclomine 10 mg capsule 2 cap PO Q6H PRN (Reason: Gastrointestinal Spasms Or Cramping) oxycodone-acetaminophen [Percocet] 5-325 mg tablet 1 tab PO Q6-8H PRN (Reason: pain) Qty: 6 0RF Rx Instructions: Partial Fill upon patient request. montelukast 10 mg tablet 10 mg PO DAILY pantoprazole 40 mg tablet,delayed release (DR/EC) 40 mg PO DAILY levothyroxine 88 mcg tablet 88 mcg PO DAILY albuterol sulfate 90 mcg/actuation HFA aerosol inhaler 2 puff inhalation Q4-6H PRN (Reason: Shortness Of Breath) cholecalciferol (vitamin D3) 25 mcg (1,000 unit) capsule 25 mcg PO DAILY cyanocobalamin (vitamin B-12) 1,000 mcg/mL solution 1,000 mcg IM [id number] ciprofloxacin HCl 500 mg tablet 500 mg PO BID metronidazole 500 mg tablet PO Stand Alone Forms: Work/School Release Interventions: ED Discharge Assessment Last Done: 02/23/23 10:20 Discharge Date/Time: 02/23/23 10:21 Print Language: Occitan
[2023-02-23 09:59] VITALS: BP 138/68; PULSE 82; RESP 16
== END 2023-02-23 10:21 | disposition home or self-care (01) ==
PROVIDERS: Emergency Provider Emergency Medicine; PCP Family Medicine
DX: M17.11 Unilateral primary osteoarthritis, right knee (principal); D16.21 Benign neoplasm of long bones of right lower limb; M79.604 Pain in right leg
CPT/HCPCS: 73564; 99283; 99284

== ENCOUNTER 2023-02-23 13:09 | Outpatient (AMB) | payer MEDICARE, MEDICAID, SELFPAY ==
--- NOTE | 2023-02-23 07:02 | MHC.OFFVIS ---
Intake Intake Visit Reasons: 3w follow up Intake Note: Patient presents today for a follow-up on Post Op: Meds- Cipro & Allergies to Antibiotic- Penicillins Blood Thinner- None Route Rider Required: No Accompanied by: Self / Same As Patient Allergies aspirin [ASPIRIN] Allergy (Intermediate, Verified 05/10/23 08:38) RASH Penicillins [PENICILLINS] Allergy (Intermediate, Verified 05/10/23 08:38) HIVES, BLACK SPOTS HPI HPI Comments History of Present Illness Details Anisha is a 72-year-old female who presents today to the office for a follow-up. 02/23/2023-- Anisha is a 72-year-old female who is followed for kidney stones. She is status post right ESWL on 02/07/23. She states she has been doing well since procedure She states that she presented to the emergency room for her knee issues. Prior imaging of CT abdomen and pelvis ? - -- 5 mm right kidney stone. KUB 10/19/22 -- 5 mm right kidney stone. Evaluation today-- UA -- Leukocytes: 15 Aditi/uL. Blood: Negative Kalpesh/uL. Plan: Ordered a follow-up x-ray of the kidneys Metabolic workup with 24-hour urine collection. Follow up in 3 months with a nurse practitioner to go over the results. [facility] Medical History (Updated 05/10/23 @ 08:53 by Carlo Mitchell MD) IBS (irritable bowel syndrome) Lymphoma Diverticulitis Diverticulosis Hypothyroid Tubal ligation evaluation GERD (gastroesophageal reflux disease) Aberrant thyroid gland Asthma B12 deficiency anemia Pulmonary embolism Primary osteoarthritis of knees, bilateral Breast cancer, left breast Surgical History History of endoscopy Hx of nasal septoplasty Hx of lithotripsy History of lumpectomy of left breast Hx of cholecystectomy History of esophagogastroduodenoscopy (EGD) H/O colonoscopy Hx of lymph node biopsy History of bone marrow biopsy History of removal of Port-a-Cath History of vocal cord polypectomy Hx of rotator cuff surgery Hx of carpal tunnel repair Family History (Updated 05/01/23 @ 11:06 by SANDRA Dickerson) Mother Family hx of colon cancer Arthritis Father Hx of kidney disease Brother History of throat cancer Daughter Arthritis Sister Arthritis Social History Household Members: None Housing: Condominium Are you a primary childcare provider to a significant other at home: No Do you presently have visiting nurse or other home services: Yes ([employer]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) Alcohol intake: never Patient Tobacco Use Status: Former Tobacco user Second Hand Smoke Exposure: No service: No Current occupational status: disabled Sexual orientation: Straight/Heterosexual Gender identity: Female Female Reproductive History Menstrual Age of Menarche: 9 Review of Systems Const All systems reviewed & are unremarkable except as noted in HPI and below Reports as per HPI Eyes Reports no additional complaints ENT Reports no additional complaints Card Reports no additional complaints Resp Reports no additional complaints GI Reports as per HPI Reports as per HPI Skin/Breast Reports as per HPI Neuro Reports no additional complaints Psych Reports no additional complaints Wong/Lymph Reports as per HPI Results AMB Urinalysis, Automated UA Leukoctes 15 Aditi/uL Last Edit by Marshall Sexton [place] on 02/23/23 13:22 UA Nitrite Negative Last Edit by Marshall Sexton [place] on 02/23/23 13:22 UA Urobilinogen 0.2 mg/dL Last Edit by Marshall Sexton [facility] on 02/23/23 13:22 UA Protein 0 mg/dL Last Edit by Marshall Sexton [facility] on 02/23/23 13:22 UA pH 6.0 Last Edit by Marshall Sexton [facility] on 02/23/23 13:22 UA Blood 0 Kalpesh/uL Last Edit by Marshall Sexton [facility] on 02/23/23 13:22 UA Specific [place] 1.010 Last Edit by Marshall Sexton [facility] on 02/23/23 13:22 UA Ketone Negative Last Edit by Marshall Sexton [place] on 02/23/23 13:22 UA Bilirubin 0 mg/dL Last Edit by Marshall Sexotn [facility] on 02/23/23 13:22 UA Glucose 0 mg/dL Last Edit by Marshall Sexton [facility] on 02/23/23 13:22 Results Reviewed Results Reviewed: Laboratory Last Values Urine pH (Auto) 6.0 02/23/23 13:15 Specific [place] (Auto) 1.010 02/23/23 13:15 Urine Protein (Auto) 0 mg/dL 02/23/23 13:15 Glucose (UA)(Auto) 0 mg/dL 02/23/23 13:15 Urine Ketones (Auto) Negative 02/23/23 13:15 Urine Blood (Auto) 0 Kalpesh/uL 02/23/23 13:15 Urine Nitrite (Auto) Negative 02/23/23 13:15 Urine Bilirubin (Auto) 0 mg/dL 02/23/23 13:15 Urine Urobilinogen (Auto) 0.2 mg/dL 02/23/23 13:15 Leukocyte Esterase (Auto) 15 Aditi/uL 02/23/23 13:15 Assessment & Plan Assessment & Plan (1) Kidney stone: Code(s): N20.0 - Calculus of kidney Plan Ordered a follow-up x-ray of the kidneys Metabolic workup with 24-hour urine collection. Follow up in 3 months with a nurse practitioner to go over the results. Orders: Orders XR KUB 02/23/23 N20.0 - Calculus of kidney AMB Urinalysis Automated 02/23/23 Z13.9 - Encounter for screening, unspecified Patient Instructions: The patient had an opportunity to ask questions regarding treatment plan. All questions were answered. Imaging, Laboratory studies and physical exam results were discussed and reviewed in detail. No major barriers to understanding were identified. The patient expressed understanding and agreement with the above treatment plan. The patient is aware they should contact our office by phone for worsening of their current condition or the appearance of new symptoms. Compliance is encouraged with any medications and followup testing that is ordered. It is a privilege to be allowed the opportunity to participate in the urologic care of your patient. If you have any questions or concerns regarding treatment for the above conditions please do not hesitate to contact me. The office telephone contact is [phone]. This note is constructed in part using voice recognition software. While every effort has been made to ensure accuracy poultry scientist errors may have been included. Yours sincerely, Nasim Altman MD Coding Level of Care Code Global (69420) Diagnoses Kidney stone N20.0
== END 2023-02-23 13:42 | disposition home or self-care (01) ==
PROVIDERS: PCP Family Medicine; Visit Provider Urology
DX: N20.0 Calculus of kidney (principal)
CPT/HCPCS: 99024

== ENCOUNTER 2023-03-07 07:38 | Outpatient (REF) | payer MEDICARE, MEDICAID, SELFPAY ==
--- NOTE | ~2023-03-07 | XR_ITS ---
EXAMINATION: XR KNEE, RIGHT CLINICAL INFORMATION: Left knee pain. COMPARISON: None available. TECHNIQUE: Three views of the right knee. FINDINGS: Mild medial femoral-tibial and patellofemoral degenerative joint changes are seen. There is no acute fracture, dislocation or joint effusion. 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 The soft tissues are unremarkable. XR/XR knee RT 3V IMPRESSION: Mild osteoarthritis as detailed above without acute abnormality.
== END 2023-03-07 07:39 | disposition home or self-care (01) ==
LOC: HO.HOSX 07:38
PROVIDERS: Visit Provider Orthopaedic Surgery
DX: M25.561 Pain in right knee (principal); Z79.899 Other long term (current) drug therapy; Z79.891 Long term (current) use of opiate analgesic
CPT/HCPCS: 73562; 99202

== ENCOUNTER 2023-03-07 13:58 | Outpatient (AMB) | payer MEDICARE, MEDICAID, SELFPAY ==
[2023-03-07 14:22] VITALS: BMI 32.4
--- NOTE | 2023-03-07 14:22 | MHC.OFFVIS ---
Intake Vital Signs 03/07/23 14:22 Height 5 ft 2 in Weight 177 lb BMI 32.4 Intake Visit Reasons: New Pt - right knee pain Intake Note: Anisha is a 72 year old female who presents today as a new patient for her right knee pain. Patient reports having ongoing pain for a couple months. She states her pain is on the medial aspect of the knee and it stays in that area. Pain is worse when walking and standing. The patient states that she aggravated her knee when she slid a chair using her foot. She reports intermittent giving way. She states that her discomfort has improved somewhat over the last few weeks. Allergies aspirin [ASPIRIN] Allergy (Intermediate, Verified 03/07/23 14:28) RASH Penicillins [PENICILLINS] Allergy (Intermediate, Verified 03/07/23 14:28) HIVES, BLACK SPOTS Medication List - Last Reconciled 03/08/23 by Carlo Mitchell MD acetaminophen-codeine 300-15 mg 1 tab PO Q6H PRN albuterol sulfate 90 mcg/actuation 2 puffs inhalation Q4-6H PRN ascorbic acid (vitamin C) (Vitamin C) 1 g PO Q6H cholecalciferol (vitamin D3) 25 mcg PO DAILY ciprofloxacin HCl 500 mg PO BID cyanocobalamin (vitamin B-12) 1,000 mcg IM [id number] dicyclomine 2 caps PO Q6H PRN levothyroxine 88 mcg PO DAILY Magic Mouthwash Diphen/Lido/Antacid 1:1:1 10 mL PO QID meclizine 1 tab PO TID PRN metronidazole mg PO montelukast 10 mg PO DAILY oxycodone 5 mg PO TID PRN 3 days oxycodone-acetaminophen 5-325 mg (Percocet) 1 tab PO Q6-8H PRN pantoprazole 40 mg PO DAILY prednisone 40 mg (2 x 20 mg) PO DAILY 5 days simethicone 250 mg PO BID PRN PFSH Medical History Aberrant thyroid gland Asthma B12 deficiency anemia Breast cancer, left breast Diverticulitis Diverticulosis GERD (gastroesophageal reflux disease) Hypothyroid IBS (irritable bowel syndrome) Lymphoma Primary osteoarthritis of knees, bilateral Pulmonary embolism Tubal ligation evaluation Surgical History H/O colonoscopy History of bone marrow biopsy History of endoscopy History of esophagogastroduodenoscopy (EGD) History of lumpectomy of left breast History of removal of Port-a-Cath History of vocal cord polypectomy Hx of carpal tunnel repair Hx of cholecystectomy Hx of lithotripsy Hx of lymph node biopsy Hx of nasal septoplasty Hx of rotator cuff surgery Family History Mother Family hx of colon cancer Father Hx of kidney disease Brother History of throat cancer Social History Household Members: None Housing: Condominium Are you a primary resident care spec to a significant other at home: No Do you presently have visiting nurse or 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 home 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) Alcohol intake: never Patient Tobacco Use Status: Never used Tobacco Second Hand Smoke Exposure: No service: No Current occupational status: disabled Sexual orientation: Straight/Heterosexual Gender identity: Female Female Reproductive History Menstrual Age of Menarche: 9 Physical Exam Vital Signs: BMI result Body Mass Index 32.4 Const Other: Well-nourished well-developed very friendly female awake alert and oriented x3 in no acute distress Extrem Other: Bilateral lower extremity examination shows good capillary refill, no skin lesions noted, normal sensation light touch Right knee examination shows a minimal effusion, minimal crepitus with range of motion, tenderness along her medial joint line, positive Harshil's test, no instability Results Reviewed Results Reviewed: X-rays of the patient's right knee show mild diffuse joint space narrowing, no acute bony abnormalities Assessment & Plan Assessment & Plan (1) Right knee pain: Code(s): M25.561 - Pain in right knee Plan Ms. Esposito presents with intermittent right knee pain and mechanical symptoms due to early degenerative joint disease as well as possible medial meniscus tearing. I had a lengthy discussion with the patient regarding the treatment options. At this point her symptoms appear to be improving with continued non operative treatments. She does not wish for a cortisone injection. She does not wish to get an MRI at this time. She will continue with her activity modifications and gentle stretching exercises. She will follow up with me on an as-needed basis should her symptoms not plateau at an unacceptable level over the next few months. Feel free to call me at any time should questions regarding her orthopedic management arise. Thank you very much for asking me to see this very friendly patient. I spent 22 minutes in reviewing the patient's records and imaging studies, seeing the patient and documenting in the medical record. Coding Level of Care Code New Pt Level 2 (31523) Diagnoses Right knee pain M25.561
== END 2023-03-07 14:50 | disposition home or self-care (01) ==
PROVIDERS: PCP Family Medicine; Visit Provider Orthopaedic Surgery
DX: M25.561 Pain in right knee (principal)
CPT/HCPCS: 99202

== ENCOUNTER 2023-03-15 05:59 | Emergency (ER) | payer MEDICARE, MEDICAID, SELFPAY ==
[2023-03-15 06:16] VITALS: BP 118/52; PULSE 78; RESP 18; TEMP 36.8; O2SAT 97; BMI 30.7
--- NOTE | 2023-03-15 06:50 | ED_ITS ---
HPI - General Adult General Chief complaint: Extremity Problem Stated complaint: leg pain Time Seen by Provider: 03/15/23 06:45 Source: patient Mode of arrival: ambulatory Limitations: no limitations History of Present Illness HPI narrative: Patient is a 72 year old assigned female at with a history of asthma, GERD, breast cancer, and chronic knee pain presenting to the emergency department today with right knee pain. Patient states that she has been seen by an orthopedic provider for this knee pain however, she was unsure about doing an MRI and didn't want any cortisone shots. Patient denies any dizziness, lightheadedness, abdominal pain, nausea, vomiting, fever, chills, blurry vision, double vision, loss of vision, chest pain, difficulty breathing, shortness of breath, back pain, night sweats, pain with urination, increased urinary frequency, increased urinary urgency, blood in her urine or stool, syncope or a near syncopal episode, recent trauma or falls, bowel incontinence, bladder incontinence, bowel retention, bladder retention, or any other complaints at this time. Onset (ago): week(s) Location: right and lower extremity Severity: mild Severity scale (1-10): 4 Quality: aching Pain Consistency: constant Relieving factors: none Exacerbating factors: movement Associated symptoms: denies other symptoms Treatments prior to arrival: other (prednisone) Related Data Home Medications Medication Instructions Recorded Confirmed albuterol sulfate 90 mcg/actuation 2 puff inhalation Q4-6H PRN 05/03/20 03/08/23 aerosol inhaler Shortness Of Breath levothyroxine 88 mcg tablet 88 mcg PO DAILY 05/03/20 03/08/23 montelukast 10 mg tablet 10 mg PO DAILY 05/03/20 03/08/23 pantoprazole 40 mg tablet,delayed 40 mg PO DAILY 05/03/20 03/08/23 release cholecalciferol (vitamin D3) 25 25 mcg PO DAILY 05/14/20 03/08/23 mcg (1,000 unit) capsule cyanocobalamin (vitamin B-12) 1,000 mcg IM [id number] 05/14/20 03/08/23 1,000 mcg/mL injection solution ascorbic acid (vitamin C) 1,000 mg 1 g PO Q6H 11/11/20 03/08/23 tablet (Vitamin C) simethicone 125 mg tablet 250 mg PO BID PRN Gastrointestinal 11/11/20 03/08/23 Spasms Or Cramping meclizine 25 mg tablet 1 tab PO TID PRN Dizziness 12/12/21 03/08/23 dicyclomine 10 mg capsule 2 cap PO Q6H PRN Gastrointestinal 03/07/22 03/08/23 Spasms Or Cramping ciprofloxacin HCl 500 mg tablet 500 mg PO BID 02/23/23 03/08/23 metronidazole 500 mg tablet mg PO 02/23/23 03/08/23 Previous Rx's Medication Instructions Recorded acetaminophen 300 mg-codeine 15 mg 1 tab PO Q6H PRN pain #8 tabs 08/21/22 tablet Magic Mouthwash 10 ml PO QID #240 mL 10/05/22 Diphen/Lido/Antacid 1:1:1 240 mL suspension oxycodone-acetaminophen 5 mg-325 1 tab PO Q6-8H PRN pain #6 tabs 02/07/23 mg tablet (Percocet) oxycodone 5 mg capsule 5 mg PO TID PRN pain 3 days #9 caps 02/23/23 prednisone 20 mg tablet 40 mg PO DAILY 5 days #10 tabs 02/23/23 ketorolac 10 mg tablet 10 mg PO Q8H PRN pain #10 tabs 03/15/23 Allergies Allergy/AdvReac Type Severity Reaction Status Date / Time aspirin [ASPIRIN] Allergy Intermediate RASH Verified 03/07/23 14:28 Penicillins [PENICILLINS] Allergy Intermediate HIVES, BLACK Verified 03/07/23 14:28 SPOTS Review of Systems Constitutional: Constitutional: Reports no additional constitutional complaints, Denies chills, Denies fever(s) and Denies night sweats Eyes: Eyes: Reports no additional eye complaints, Denies blurry vision, Denies change in vision, Denies diplopia, Denies eye discharge, Denies loss of vision and Denies eye pain ENT: Denies dizziness Cardiovascular: Cardiovascular: Reports no additional cardiovascular complaints, Denies chest pain, Denies lightheadedness, Denies Loss of Consciousness and Denies dyspnea Respiratory: Respiratory: Reports no additional respiratory complaints and Denies dyspnea Gastrointestinal: Gastrointestinal: Reports no additional gastrointestinal complaints, Denies abdominal pain, Denies melena, Denies hematochezia, Denies change in bowel habits and Denies change in stool character Genitourinary: Genitourinary: Denies hematuria, Denies urinary frequency, Denies dysuria, Denies urinary incontinence, Denies urinary hesitancy and Denies urinary urgency Musculoskeletal: Musculoskeletal: Reports no additional musculoskeletal complaints, Denies numbness and Denies tingling Comments: right knee pain Neurologic: Denies dizziness, Denies loss of vision, Denies numbness and Denies tingling Psychiatric: Psychiatric: Reports no additional psychiatric complaints Endocrine: Endocrine: Reports no additional endocrine complaints Hematologic/Lymphatic: Hematologic/Lymphatic: Reports no additional hematologic/lymphatic complaints Allergic/Immunologic: Allergic/Immunologic: Reports no additional allergic/immunologic complaints [facility] Past Medical History Attestation statement: The following information was validated with the patient. Source: old records reviewed and nursing notes reviewed Medical History Aberrant thyroid gland Asthma B12 deficiency anemia Breast cancer, left breast Diverticulitis Diverticulosis GERD (gastroesophageal reflux disease) Hypothyroid IBS (irritable bowel syndrome) Lymphoma Primary osteoarthritis of knees, bilateral Pulmonary embolism Tubal ligation evaluation Surgical History H/O colonoscopy History of bone marrow biopsy History of endoscopy History of esophagogastroduodenoscopy (EGD) History of lumpectomy of left breast History of removal of Port-a-Cath History of vocal cord polypectomy Hx of carpal tunnel repair Hx of cholecystectomy Hx of lithotripsy Hx of lymph node biopsy Hx of nasal septoplasty Hx of rotator cuff surgery Family History Family History Mother Family hx of colon cancer Father Hx of kidney disease Brother History of throat cancer Social History Social History Household Members: None Housing: Condominium Are you a primary care director rn to a significant other at home: No Do you presently have visiting nurse or other home services: Yes ([employer]) Alcohol intake: never Patient Tobacco Use Status: Never used Tobacco Second Hand Smoke Exposure: No Advance Directives: No Advance Directives Information Provided: Yes service: No Current occupational status: disabled Sexual orientation: Straight/Heterosexual Gender identity: Female Physical Exam ED Vital Signs: Vital Signs - 24 hr 03/15/23 06:16 03/15/23 08:35 Temperature 98.2 F Pulse Rate 78 73 Respiratory Rate 18 18 Blood Pressure 118/52 L 122/53 L Pulse Oximetry 97 98 Oxygen Delivery Method Room Air Room Air BMI result Body Mass Index 30.7 Const General: cooperative, no acute distress, alert and awake Nutritional Appearance: well nourished Orientation/consciousness: patient oriented x3 Limitations: no limitations HENMT Head: Yes normal to inspection and Yes atraumatic Ears: hearing grossly normal bilaterally and external ears normal General nose exam: Normal external nose present, no nasal discharge noted and no epistaxis Face and sinus: Yes normal facial exam, No abrasion and No laceration Mouth: Normal oral and palatal mucosa present, no drooling and no muffled voice Eyes General: appearance normal, both eyes and all related structures Periorbital: periorbital findings normal Eyelids: Yes eyelids normal Conjunctivae: conjunctivae normal Pupils: Equal, round and reactive pupils present EOM: EOMs intact bilaterally Neck Neck: Yes normal visual inspection, Yes full ROM and Yes no lymphadenopathy Chest Chest palpation & inspection: normal inspection of the chest Resp Effort & Inspection: normal respiratory effort and able to speak in complete sentences GI Inspection: Yes normal to inspection Neuro General: patient oriented x3 and moves all extremities Cranial nerves: Yes Equal, round and reactive pupils present Cognition (Neuro): normal cognition Motor exam (neuro): 5/5 motor strength present throughout Sensory Exam: Normal double simultaneous stimulation for sensation Coordination: [id number] test normal Extrem General: Yes normal to inspection, Yes full ROM and Yes capillary refill normal Psych Appearance: grossly normal Mental Status: mental status grossly normal Affect: normal affect Attitude: cooperative Thought process: Normal thought process present Thought content: Normal thought content present Insight: Good insight present (Psych) Medications Administered Discontinued Medications Generic Name Dose Route Start Last Admin Trade Name Freq PRN Reason Stop Dose Admin Ketorolac Tromethamine 15 mg 03/15/23 08:31 03/15/23 08:39 Ketorolac Tromethamine 15 Mg/Ml Vial IM 03/15/23 08:32 15 mg ONCE ONE Administration Medical Decision Making Medical Decision Making MDM Narrative: Patient is a 72 year old assigned female at with a history of GERD, asthma, breast cancer, and chronic knee pain presenting to the emergency department today with right knee pain. Patient's physical exam was unremarkable. I explained my physical exam findings to the patient. I answered all questions asked by the patient. Patient received IM Toradol which she stated helped her symptoms significantly. I stressed the importance of the patient taking her medication as prescribed. I stressed the importance of the patient following up with her primary care provider and the orthopedic provider. I stressed the importance of the patient returning to the emergency department immediately if her symptoms were to worsen or if she were to develop any dizziness, shortness of breath, difficulty breathing, chest pain, blurry vision, loss of vision, nausea, vomiting, abdominal pain, fever, chills, back pain, or any other compl aints. Patient verbalized agreement and understanding with this treatment plan and discharge. Differential Diagnosis Differential Diagnoses: The differential diagnosis associated with the presentation includes Chronic right knee pain Osteoarthritis Internal right knee injury External Record Review External record reviewed: Office record (orthopedic records) and Other (previous ED visits) Prescription Management I considered prescription management with: Pain Medication (patient prescribed pain medication) Chronic Conditions Patient?s care impacted by: Other (asthma) Discharge Plan Discharge Clinical Impression: Chronic knee pain Patient Disposition: Home, Self-Care Instructions: Chronic Pain (ED) Additional Instructions: Follow up with your primary care provider and your orthopedic provider. Return to the emergency department immediately if your symptoms worsen or if you develop any dizziness, shortness of breath, difficulty breathing, chest pain, blurry vision, loss of vision, nausea, vomiting, abdominal pain, fever, chills, back pain, or any other complaints. Prescriptions: New ketorolac 10 mg tablet 10 mg PO Q8H PRN (Reason: pain) Qty: 10 0RF No Action ascorbic acid (vitamin C) [Vitamin C] 1,000 mg Tablet 1 g PO Q6H simethicone 125 mg Tablet 250 mg PO BID PRN (Reason: Gastrointestinal Spasms Or Cramping) meclizine 25 mg tablet 1 tab PO TID PRN (Reason: Dizziness) Magic Mouthwash Diphen/Lido/Antacid 1:1:1 240 mL Suspension 10 ml PO QID Qty: 240 6RF Rx Instructions: Lidocaine Viscous 2 % 80mL; diphenhydramine 12.5 mg/5 mL 80mL; aluminum-mag hydrox-simeth [id number]/5mL 80mL acetaminophen-codeine 300-15 mg tablet 1 tab PO Q6H PRN (Reason: pain) Qty: 8 0RF dicyclomine 10 mg capsule 2 cap PO Q6H PRN (Reason: Gastrointestinal Spasms Or Cramping) oxycodone-acetaminophen [Percocet] 5-325 mg tablet 1 tab PO Q6-8H PRN (Reason: pain) Qty: 6 0RF Rx Instructions: Partial Fill upon patient request. prednisone 20 mg tablet 40 mg PO DAILY 5 Days Qty: 10 0RF oxycodone 5 mg capsule 5 mg PO TID PRN (Reason: pain) 3 Days Qty: 9 0RF Rx Instructions: Partial Fill upon patient request. montelukast 10 mg tablet 10 mg PO DAILY pantoprazole 40 mg tablet,delayed release (DR/EC) 40 mg PO DAILY levothyroxine 88 mcg tablet 88 mcg PO DAILY albuterol sulfate 90 mcg/actuation HFA aerosol inhaler 2 puff inhalation Q4-6H PRN (Reason: Shortness Of Breath) cholecalciferol (vitamin D3) 25 mcg (1,000 unit) capsule 25 mcg PO DAILY cyanocobalamin (vitamin B-12) 1,000 mcg/mL solution 1,000 mcg IM [id number] ciprofloxacin HCl 500 mg tablet 500 mg PO BID metronidazole 500 mg tablet PO Referrals: [facility] [place], [place] Family Medicine [Provider Group] (Call to establish and follow up with a primary care provider. If you already have a primary care provider, please follow up with them.) [facility] [place] [place] Primary [facility], [place] [Provider Group] (Call to establish and follow up with a primary care provider. If you already have a primary care provider, please follow up with them.) [facility] [place] [place] Primary [facility],[place] [Provider Group] (Call to establish and follow up with a primary care provider. If you already have a primary care provider, please follow up with them.) [facility] [Provider Group] (Follow up with your orthopedic provider.) Interventions: ED Discharge Assessment Last Done: 03/15/23 08:59 Discharge Date/Time: 03/15/23 09:00 Print Language: Faroese
--- NOTE | 2023-03-15 07:13 | PC.NURSE ---
patient resting in stretcher, respirations equal and unlabored.
[2023-03-15 08:35] VITALS: BP 122/53; PULSE 73; RESP 18; O2SAT 98
[2023-03-15] MEDS: Ketorolac Tromethamine 15 MG/ML VIAL IM (08:39)
== END 2023-03-15 09:00 | disposition home or self-care (01) ==
PROVIDERS: Emergency Provider Student in an Organized Health Care Education/Training Program
DX: M25.561 Pain in right knee (principal); Z79.899 Other long term (current) drug therapy
CPT/HCPCS: 96372; 99284; J1885

== ENCOUNTER 2023-04-16 07:15 | Outpatient (REF) | payer MEDICARE, MEDICAID, SELFPAY ==
--- NOTE | ~2023-04-16 | MR_ITS ---
EXAMINATION: MR KNEE WITHOUT CONTRAST, RIGHT CLINICAL INFORMATION: Unspecified tear of the meniscus. COMPARISON: X-ray of the right knee 03/07/2023. TECHNIQUE: MRI of the knee without contrast was performed using routine sequences on a high-field scanner. FINDINGS: MENISCI: Medial Meniscus: There is irregularity of the free edge of the posterior horn. There is also irregularity of the free edge. The body of the meniscus is also abnormal, appearing attenuated with heterogeneous increased signal and irregularity of the articular surfaces. There also appears to be at least some extrusion or partial meniscal detachment extending into the meniscal femoral recess. Findings indicative tearing of the body and posterior horn of the medial meniscus. Meniscal roots intact. Anterior horn intact. Lateral Meniscus: Intact LIGAMENTS: Cruciate: Intact Collateral: Intact EXTENSOR MECHANISM: Intact ARTICULAR CARTILAGE/BONE: Patellofemoral Compartment: There is focal full-thickness cartilage heterogeneity in the proximal median ridge of the patella with additional scattered areas of cartilage heterogeneity throughout the medial and lateral facets along with subchondral cystic change, most evident along the proximal half of the patella. There is additional nonuniform up to high-grade cartilage loss in the medial trochlea with associated subchondral cystic change. Overall, [id number] patellofemoral arthrosis. Medial Compartment: There are marginal osteophytes. There is scattered cartilage heterogeneity and surface irregularity throughout the weightbearing portion of the compartment. There is a small subchondral cyst versus focal 3 mm insufficiency fracture in the weightbearing medial femoral condyle with prominent surrounding edema. Lateral Compartment: Small subchondral cyst along the lateral weightbearing portion of the femoral articular surface. Minimal scattered cartilage heterogeneity. Overall minimal arthrosis. Additional Findings: There are scattered punctate areas of low T1 and heterogeneous T2 signal partially visualized in the diagnostic portion of the examination involving the distal metaphysis. On the assembling motor builder images, this extends up to 4.7 cm craniocaudal. This focus measures up to 1.5 cm AP and 2.6 cm transverse. This corresponds to the area of the sclerotic density in the distal metaphysis of the femur. JOINT FLUID AND BURSAE: There is a mild joint effusion and synovitis with small Pedraza's cyst. MR/MR knee RT wo con IMPRESSION: 1. Complex tear of the body and posterior horn of the medial meniscus. 2. [id number] patellofemoral arthrosis. 3. Mild medial compartment arthrosis. Concomitant subchondral cyst versus insufficiency fracture in the weightbearing medial femoral condyle with prominent surrounding edema. 4. Minimal lateral compartment arthrosis. 5. Mild joint effusion and synovitis with small Pedraza's cyst. Partially visualized lesion in the distal metaphysis of the femur corresponding to the sclerotic density seen on x-ray. This most likely reflects a cartilage lesion likely enchondroma. Bone infarct remains in the differential diagnosis particularly given the radiographic appearance and the fact that the lesion is not fully evaluated on MRI. Continued routine follow up to ensure stability of this suspected benign lesion.
== END 2023-04-16 07:16 | disposition home or self-care (01) ==
LOC: HO.MRI 07:15
PROVIDERS: Visit Provider Orthopaedic Surgery
DX: S83.206A Unspecified tear of unspecified meniscus, current injury, right knee, initial encounter (principal)
CPT/HCPCS: 73721

== ENCOUNTER 2023-05-01 10:51 | Outpatient (AMB) | payer MEDICARE, MEDICAID, SELFPAY ==
--- NOTE | 2023-05-01 10:56 | MHC.OFFVIS ---
Intake Vital Signs 05/01/23 10:58 Height 5 ft 4 in Weight 172 lb 6.424 oz BMI 29.6 BP 112/60 Blood Pressure Location Rt brachial Position Sitting Pulse 78 Pulse Source Pulse Oximeter Temp 97.6 F Temp Source Skin Pulse Oximetry (%) 100 Oxygen Delivery Method Room Air Intake Visit Reasons: Joint Pain Intake Note: New patient here for joint pain. Last seen by our rheum department 05/2020. c/o heide hand sensitivity, heide leg pain, right shoulder pain, toes and fingers locking up, fingers turn white when exposed to cold, specially during cold weather. 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 Accompanied by: Grand Child Allergies aspirin [ASPIRIN] Allergy (Intermediate, Verified 05/01/23 10:58) RASH Penicillins [PENICILLINS] Allergy (Intermediate, Verified 05/01/23 10:58) HIVES, BLACK SPOTS Medication List - Last Reconciled 05/01/23 by Zeyad Escalona MD albuterol sulfate 90 mcg/actuation 2 puffs inhalation Q4-6H PRN ascorbic acid (vitamin C) (Vitamin C) 1 g PO Q6H cholecalciferol (vitamin D3) 25 mcg PO DAILY cyanocobalamin (vitamin B-12) 1,000 mcg IM [id number] dicyclomine 2 caps PO Q6H PRN levothyroxine 88 mcg PO DAILY Magic Mouthwash Diphen/Lido/Antacid 1:1:1 10 mL PO QID meclizine 1 tab PO TID PRN montelukast 10 mg PO DAILY pantoprazole 40 mg PO DAILY simethicone 250 mg PO BID PRN HPI HPI Comments History of Present Illness Details Patient presents with her daughter for evaluation of leg pain. She had been seen a few years ago by Dr. Orozco for positive AMANDA and Sjogren's antibodies. Autoimmune disease symptoms however were not appreciated. She had mostly pains from osteoarthritis in the right knee and lower back. Today she is mostly complaining of right knee pain and bilateral ankle pain. This seems to be felt over the distal calf region bilaterally. She feels a linear firmness in the calf area. The ankles are occasionally swollen, more so at the end of the day. There are no acute episodes of redness and swelling in the ankles. The right knee has been evaluated in Orthopedics. There are findings of OA seen more on the MRI than the regular x-ray. She has had 2 surgeries on the right shoulder, one a decompressive surgery and the other was an attempt at rotator cuff repair but they were not helpful. In the past she had breast cancer in situ diagnosed about 10 years ago. This was treated with the lumpectomy , radiation and tamoxifen. In 2020 she developed a lymphoma. This was treated with rituximab and bendamustine she says for about 6 months. The malignant disease manifestations subsided and have not returned. [facility] Medical History (Updated 05/01/23 @ 14:35 by Zeyad Escalona MD) IBS (irritable bowel syndrome) Lymphoma Diverticulitis Diverticulosis Hypothyroid Tubal ligation evaluation GERD (gastroesophageal reflux disease) Aberrant thyroid gland Asthma B12 deficiency anemia Pulmonary embolism Primary osteoarthritis of knees, bilateral Breast cancer, left breast Surgical History History of endoscopy Hx of nasal septoplasty Hx of lithotripsy History of lumpectomy of left breast Hx of cholecystectomy History of esophagogastroduodenoscopy (EGD) H/O colonoscopy Hx of lymph node biopsy History of bone marrow biopsy History of removal of Port-a-Cath History of vocal cord polypectomy Hx of rotator cuff surgery Hx of carpal tunnel repair Family History (Updated 05/01/23 @ 11:06 by SANDRA Dickerson) Mother Family hx of colon cancer Arthritis Father Hx of kidney disease Brother History of throat cancer Daughter Arthritis Sister Arthritis Social History (Updated 05/01/23 @ 11:06 by SANDRA Dickerson) Household Members: None Housing: Condominium Are you a primary healthcare account manager to a significant other at home: No Do you presently have visiting nurse or other home services: 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 Negative for appetite change, fever, chills, malaise and fatigue Eyes Details: Negative for vision change, dry eyes,headaches and dizziness ENT Details: She recalls some sores in her mouth when she had the chemotherapy but none recently. Negative for hearing change, tinnitus, oral ulcer, nose bleeds and oral dryness. Card Details: Negative chest pain, edema and syncope Resp Details: Negative for SOB, cough and wheezing GI Details: Some heartburn and nausea. Helped with pantoprazole. Negative abdominal pain, bowel changes, diarrhea, constipation and bloody stool. Details: Negative for dysuria, hematuria, nocturia, decreased force/flow and genital discharge Skin/Breast Details: Raynaud's symptoms in the hands and feet at times. No cutaneous ulcerations. Negative for itching, rash, hives, sun sensitivity, and skin cancer Neuro Details: Negative for epilepsy, palsy, stroke, changes in speech, tingling and weakness Psych Details: Negative for anxiety, depression and stress Endo Details: Negative for polyuria and polydypsia Wong/Lymph Details: Negative for excessive bruising or bleeding. Physical Exam Vital Signs: Last Vital Signs Temp 97.6 F 05/01/23 10:58 Pulse 78 05/01/23 10:58 BP 112/60 05/01/23 10:58 Pulse Ox 100 05/01/23 10:58 Oxygen Delivery Method Room Air 05/01/23 10:58 BMI result Body Mass Index 29.6 APPEARANCE: Patient in no acute distress EYES no redness, pupils equal and reactive to light, eyelids normal EARS: External ear normal, canal clear and tympanic membrane normal. NOSE/SINUS: Airflow through both nares, no nasal discharge, no bleeding THROAT: Oral mucosa moist, no ulcerations NECK: No thyromegaly or masses, no adenopathy, trachea midline. HEART: Regulrar rhythm, S1-S2 heard, no murmurs, rubs or gallops. LUNG: Clear to percussion and auscultation ABD: Normal bowel sounds, no organomegaly, masses or tenderness. EXTREMITIES: No edema, there is some tenderness in the distal calf muscles and there is a palpable linear structure consistent with a thrombosed vein superficially both calf regions. No redness or warmth. No surrounding induration. The patient has normal peripheral pulses. NEURO: Oriented and alert x3. No focal weakness. Reflexes symmetric. Gait normal. SKIN: No inflammatory or neoplastic lesions. Normal color and turgor JOINT EXAM:.?? Cervical Spine:.? Full range of motion with mild discomfort at the extremes of motion. No tenderness. Thoracic Spine:.? No scoliosis.? No tenderness on palpation. Lumbar Spine:.? Alignment normal.? Mild pain with flexion at 45 degrees. There is some slight paraspinal muscle tenderness. Chest Wall:.? Mild tenderness along the right rib margin. The associated areas of swelling, increased warmth or erythema. Hands:.? Normal pain-free range of motion without tenderness, swelling, increased warmth or erythema. Able to make a full fist and has a good payroll technician strength. Wrists:.? Normal pain-free range of motion without tenderness, swelling, increased warmth or erythema. Elbows:. Normal pain-free range of motion without tenderness, swelling, increased warmth or erythema. Shoulders:.? Right: Mild pain with abduction at 75 degrees. Even passive motion is limited to about 90 degrees. There may be some adenopathy in the right axillary area but it is hard to palpate because of her limited motion. There may be some abductor weakness but no swelling or a redness around the shoulder. Left:? Full range of motion without pain. No tenderness, weakness, swelling, increased warmth or erythema. Hips:. Right: There is lumbar pain with the extremes of range of motion. There is no groin pain with motion. Left:? Full range of motion without pain. Hip bursa:.? No tenderness. Knees:.??Right: Mild to moderate pain with flexion extension. There is mild medial tenderness without redness or effusion. Mild patellofemoral crepitus. Left: Normal pain-free range of motion with slight patellofemoral crepitus but no effusion, tenderness, swelling, increased warmth or erythema.? Ankles:.? Mild pain in both calf and ankle regions with extremes of AP motion. There is tenderness in the distal half adjacent the linear structure consistent with thrombosed vein. No areas of local inflammation however. The the patient has normal pain-free inversion and eversion at each ankle without any soft tissue swelling, redness or warmth.. Feet: ? Normal pain-free range of motion with some slight 1st MTP bony enlargement. However there is no area of tenderness, soft tissue swelling, increased warmth or erythema. There is no break in the skin or sensory loss. Tender points:.? Mild tenderness to digital palpation at the lateral epicondyle, the right knee ? Results Reviewed Results Reviewed: Laboratory Tests 09/05/19 08/31/20 08/31/20 10:08 08:20 08:20 Rheumatoid Factor < 15.0 Cycl Citrul Peptide IgG <16 AMANDA Titer 1:320 H SS-A/Ro Antibody >8.0 H SS-B/La Antibody 6.7 H Sm ([place]quendo) Antibody <1.0 SmRNP Antibodies <1.0 Scl-70 Scleroderma Ab <1.0 Double Strand DNA Ab <[address] [address] Magnetic Resonance Report Signed Patient: Anisha Esposito MR#: [id number] : 1950 Acct:[id number] Age/Sex ADM Date: 04/16/[address]: Carlo Mitchell MD Ordering Physician: Carlo Mitchell MD Date of Service: 04/16/23 Procedure(s): MR knee RT wo con Accession Number(s): [id number] cc: Carlo Mitchell MD~ EXAMINATION: MR KNEE WITHOUT CONTRAST, RIGHT CLINICAL INFORMATION: Unspecified tear of the meniscus. COMPARISON: X-ray of the right knee 03/07/2023. TECHNIQUE: MRI of the knee without contrast was performed using routine sequences on a high-field scanner. FINDINGS: MENISCI: Medial Meniscus: There is irregularity of the free edge of the posterior horn. There is also irregularity of the free edge. The body of the meniscus is also abnormal, appearing attenuated with heterogeneous increased signal and irregularity of the articular surfaces. There also appears to be at least some extrusion or partial meniscal detachment extending into the meniscal femoral recess. Findings indicative tearing of the body and posterior horn of the medial meniscus. Meniscal roots intact. Anterior horn intact. Lateral Meniscus: Intact LIGAMENTS: Cruciate: Intact Collateral: Intact EXTENSOR MECHANISM: Intact ARTICULAR CARTILAGE/BONE: Patellofemoral Compartment: There is focal full-thickness cartilage heterogeneity in the proximal median ridge of the patella with additional scattered areas of cartilage heterogeneity throughout the medial and lateral facets along with subchondral cystic change, most evident along the proximal half of the patella. There is additional nonuniform up to high-grade cartilage loss in the medial trochlea with associated subchondral cystic change. Overall, [id number] patellofemoral arthrosis. Medial Compartment: There are marginal osteophytes. There is scattered cartilage heterogeneity and surface irregularity throughout the weightbearing portion of the compartment. There is a small subchondral cyst versus focal 3 mm insufficiency fracture in the weightbearing medial femoral condyle with prominent surrounding edema. Lateral Compartment: Small subchondral cyst along the lateral weightbearing portion of the femoral articular surface. Minimal scattered cartilage heterogeneity. Overall minimal arthrosis. Additional Findings: There are scattered punctate areas of low T1 and heterogeneous T2 signal partially visualized in the diagnostic portion of the examination involving the distal metaphysis. On the fiscal technician images, this extends up to 4.7 cm craniocaudal. This focus measures up to 1.5 cm AP and 2.6 cm transverse. This corresponds to the area of the sclerotic density in the distal metaphysis of the femur. JOINT FLUID AND BURSAE: There is a mild joint effusion and synovitis with small Pedraza's cyst. MR/MR knee RT wo con IMPRESSION: 1. Complex tear of the body and posterior horn of the medial meniscus. 2. [id number] patellofemoral arthrosis. 3. Mild medial compartment arthrosis. Concomitant subchondral cyst versus insufficiency fracture in the weightbearing medial femoral condyle with prominent surrounding edema. 4. Minimal lateral compartment arthrosis. 5. Mild joint effusion and synovitis with small Pedraza's cyst. Partially visualized lesion in the distal metaphysis of the femur corresponding to the sclerotic density seen on x-ray. This most likely reflects a cartilage lesion likely enchondroma. Bone infarct remains in the differential diagnosis particularly given the radiographic appearance and the fact that the lesion is not fully evaluated on MRI. Continued routine follow up to ensure stability of this suspected benign lesion. Dictated By: Ben Coelho MD Signed By: <Electronically signed by Ben Coelho MD in OV> 04/16/23 0912 Assessment & Plan Assessment & Plan (1) Osteoarthritis of right knee: Code(s): M17.11 - Unilateral primary osteoarthritis, right knee (2) AMANDA positive: Code(s): R76.8 - Other specified abnormal immunological findings in serum (3) Bilateral leg cramps: Code(s): R25.2 - Cramp and spasm Plan Most of the complaints currently seem to center around nighttime leg cramps. This is likely due to muscle fatigue and possibly some venous insufficiency. There is firm lesion on the lower calf consistent with a thrombosed vein. It does not look to be inflamed presently. There is a prior history supposedly of DVT but she does not recall that. In any case I do not think she has signs currently of active inflammatory arthritis or a DVT. Serologically she has had a positive AMANDA and Sjogren's antibodies for number of years. She dose not have much in the way of sicca symptoms at present. We will get x-rays of the tibia and fibular region to see if this any bony abnormality corresponding to wear her symptoms lie. We will check some electrolytes to look for any causes for muscle spasm but I do not think that is going to show anything. I instructed her in some gentle stretching for the ankles and foot region to see if that could help prevent her spasms. If the discomfort continues in the legs she could be evaluated in vascular surgery for treatment of venous insufficiency. I asked her to review with oncology about the possible lymph node in the right axilla. We will get back to her with the results of her blood work and x-rays. I do not think we need Rheumatology at this point. Orders: Orders Comprehensive Met. Panel Today R25.2 - Cramp and spasm XR tibia fibula RT 2V Today R25.2 - Cramp and spasm XR tibia fibula LT 2V Today R25.2 - Cramp and spasm Coding Level of Care Code Est Pt Level 4 (49812) Diagnoses Osteoarthritis of right knee M17.11 AMANDA positive R76.8 Bilateral leg cramps R25.2
[2023-05-01 10:58] VITALS: BP 112/60; PULSE 78; TEMP 36.4; O2SAT 100; BMI 29.6
== END 2023-05-01 12:03 | disposition home or self-care (01) ==
PROVIDERS: PCP Family Medicine; Visit Provider Internal Medicine Rheumatology
DX: M17.11 Unilateral primary osteoarthritis, right knee (principal); R76.8 Other specified abnormal immunological findings in serum; R25.2 Cramp and spasm
CPT/HCPCS: 99214

== ENCOUNTER → 2023-05-01 10:51 | Outpatient (BNVA) | payer MEDICARE, MEDICAID, SELFPAY | PROVIDERS: PCP Family Medicine; Visit Provider Internal Medicine Rheumatology | DX: M17.11 Unilateral primary osteoarthritis, right knee (principal); R76.8 Other specified abnormal immunological findings in serum; R25.2 Cramp and spasm | CPT/HCPCS: 99212 ==

== ENCOUNTER 2023-05-03 15:39 | Outpatient (REF) | payer MEDICARE, MEDICAID, SELFPAY ==
--- NOTE | ~2023-05-03 | XR_ITS ---
EXAMINATION: XR TIBIA/FIBULAR, RIGHT XR TIBIA/FIBULAR, LEFT CLINICAL INFORMATION: Cramping, spasms. COMPARISON: Right knee radiographs dated 03/07/2023. TECHNIQUE: AP and lateral views of the right and left tibia/fibula. FINDINGS: No acute fracture or dislocation. No periosteal reaction or cortical erosion. Subtle dystrophic calcifications within the subcutaneous tissues of the lower right and left legs. Minimal, irregular sclerosis within the central marrow cavity of the distal right and left tibia which could represent normal variation versus small enchondromas. No concerning lytic or blastic osseous lesion. XR/XR tibia fibula RT 2V IMPRESSION: No acute osseous abnormality.
--- NOTE | ~2023-05-03 | XR_ITS ---
EXAMINATION: XR TIBIA/FIBULAR, RIGHT XR TIBIA/FIBULAR, LEFT CLINICAL INFORMATION: Cramping, spasms. COMPARISON: Right knee radiographs dated 03/07/2023. TECHNIQUE: AP and lateral views of the right and left tibia/fibula. FINDINGS: No acute fracture or dislocation. No periosteal reaction or cortical erosion. Subtle dystrophic calcifications within the subcutaneous tissues of the lower right and left legs. Minimal, irregular sclerosis within the central marrow cavity of the distal right and left tibia which could represent normal variation versus small enchondromas. No concerning lytic or blastic osseous lesion. XR/XR tibia fibula LT 2V IMPRESSION: No acute osseous abnormality.
[2023-05-03 18:06] LABS: Alanine Aminotransferase 16 U/L (0-31); Albumin Level 4.1 g/dL (3.5-5.0); Alkaline Phosphatase 113 U/L (39-117); Anion Gap 15 (12-20); Aspartate Amino Transferase 24 U/L (5-31); Bilirubin Total 0.2 mg/dL (0.0-1.0); Blood Urea Nitrogen 10 mg/dL (9-16); Calcium 9.9 mg/dL (8.4-10.2); Carbon Dioxide 23 mmol/L (22-29); Chloride 106 mmol/L (96-108); Estimated Glomerular Filt Rate > 60; Glucose Random 87 mg/dL (60-115); Potassium 4.1 mmol/L (3.3-5.1); Sodium 140 mmol/L (135-145); Total Protein 7.6 g/dL (6.5-8.0)
== END 2023-05-03 15:40 | disposition home or self-care (01) ==
LOC: HO.LAB 15:39
PROVIDERS: PCP Family Medicine; Visit Provider Internal Medicine Rheumatology
DX: R25.2 Cramp and spasm (principal)
CPT/HCPCS: 36415; 73590; 80053

== ENCOUNTER 2023-05-10 08:30 | Outpatient (AMB) | payer MEDICARE, MEDICAID, SELFPAY ==
--- NOTE | 2023-05-10 08:32 | A.OFFVIS_ITS ---
Intake Vital Signs 05/10/23 08:33 Height 5 ft 4 in Weight 172 lb BMI 29.5 Intake Visit Reasons: O/V rt knee MRI Intake Note: Anisha is a 72 year old female who presents today as a new patient for her right knee pain and giving way. The patient describes her pain as sharp in nature. Most of the pain is along the medial and lateral aspects of her knee. Her symptoms have gotten worse over the last year in spite of continued non operative treatment. She has been wearing a knee brace which gives her minimal relief. She states that her right knee will give out several times per day. She has had injections in the past which gave her no relief. She has also tried Tylenol and anti-inflammatory medicines which gave her minimal relief. The patient has done physical therapy for 12 weeks over the last 6 months which aggravated her pain. Allergies aspirin [ASPIRIN] Allergy (Intermediate, Verified 05/10/23 08:38) RASH Penicillins [PENICILLINS] Allergy (Intermediate, Verified 05/10/23 08:38) HIVES, BLACK SPOTS Medication List - Last Reconciled 05/10/23 by Carlo Mitchell MD albuterol sulfate 90 mcg/actuation 2 puffs inhalation Q4-6H PRN ascorbic acid (vitamin C) (Vitamin C) 1 g PO Q6H cholecalciferol (vitamin D3) 25 mcg PO DAILY cyanocobalamin (vitamin B-12) 1,000 mcg IM [id number] dicyclomine 2 caps PO Q6H PRN levothyroxine 88 mcg PO DAILY Magic Mouthwash Diphen/Lido/Antacid 1:1:1 10 mL PO QID meclizine 1 tab PO TID PRN montelukast 10 mg PO DAILY pantoprazole 40 mg PO DAILY simethicone 250 mg PO BID PRN PFSH Medical History (Updated 05/10/23 @ 08:53 by Carlo Mitchell MD) IBS (irritable bowel syndrome) Lymphoma Diverticulitis Diverticulosis Hypothyroid Tubal ligation evaluation GERD (gastroesophageal reflux disease) Aberrant thyroid gland Asthma B12 deficiency anemia Pulmonary embolism Primary osteoarthritis of knees, bilateral Breast cancer, left breast Surgical History History of endoscopy Hx of nasal septoplasty Hx of lithotripsy History of lumpectomy of left breast Hx of cholecystectomy History of esophagogastroduodenoscopy (EGD) H/O colonoscopy Hx of lymph node biopsy History of bone marrow biopsy History of removal of Port-a-Cath History of vocal cord polypectomy Hx of rotator cuff surgery Hx of carpal tunnel repair Family History (Updated 05/01/23 @ 11:06 by SANDRA Dickerson) Mother Family hx of colon cancer Arthritis Father Hx of kidney disease Brother History of throat cancer Daughter Arthritis Sister Arthritis Social History Household Members: None Housing: Condominium Are you a primary technical healthcare consultant to a significant other at home: No Do you presently have visiting nurse or 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 home 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) Alcohol intake: never Patient Tobacco Use Status: Former Tobacco user Second Hand Smoke Exposure: No service: No Current occupational status: disabled Sexual orientation: Straight/Heterosexual Gender identity: Female Female Reproductive History Menstrual Age of Menarche: 9 Physical Exam Vital Signs: BMI result Body Mass Index 29.5 Const Other: Well-nourished well-developed very friendly female awake alert and oriented x3 in no acute distress Extrem Other: Bilateral lower extremity examination shows good capillary refill, no skin lesions noted, normal sensation light touch Right knee examination shows a minimal effusion, minimal crepitus with range of motion, tenderness along her medial and lateral joint lines, positive Harshil's test, no instability Results Reviewed Results Reviewed: X-rays of the patient's right knee show mild diffuse joint space narrowing, no acute bony abnormalities MRI of the patient's right knee shows mild diffuse degenerative changes as well as a tear of her medial and lateral menisci, no acute bony abnormalities Assessment & Plan Assessment & Plan (1) Tear of medial meniscus of left knee: Code(s): S83.242A - Other tear of medial meniscus, current injury, left knee, initial encounter Plan Ms. Esposito presents with progressively worsening right knee pain and mechanical symptoms due to early degenerative joint disease as well as tearing of her medial and lateral menisci. I had a lengthy discussion with the patient regarding the treatment options. At this point she has failed continued non operative treatments. The risks and benefits of right knee arthroscopic surgery were discussed at length with the patient. The patient wishes to proceed with surgery. Surgery will most likely involve right knee diagnostic arthroscopy with partial medial and lateral meniscectomies. The patient will contact my office to pick a surgery date. She will be given a prescription for pain medicine at the time of her surgery. She will follow-up as instructed. Feel free to call me at any time should questions regarding her orthopedic management arise. I spent 22 minutes in reviewing the patient's records and imaging studies, seeing the patient and documenting in the medical record. Coding Level of Care Code Est Pt Level 2 (61618) Diagnoses Tear of medial meniscus of left knee S83.242A
[2023-05-10 08:33] VITALS: BMI 29.5
== END 2023-05-10 08:50 | disposition home or self-care (01) ==
PROVIDERS: PCP Family Medicine; Visit Provider Orthopaedic Surgery
DX: S83.242A Other tear of medial meniscus, current injury, left knee, initial encounter (principal)
CPT/HCPCS: 99212

== ENCOUNTER → 2023-05-10 08:30 | Outpatient (BNVA) | payer MEDICARE, MEDICAID, SELFPAY | PROVIDERS: PCP Family Medicine; Visit Provider Orthopaedic Surgery | DX: M17.0 Bilateral primary osteoarthritis of knee (principal); M25.561 Pain in right knee; S83.241A Other tear of medial meniscus, current injury, right knee, initial encounter; S83.281A Other tear of lateral meniscus, current injury, right knee, initial encounter; X58.XXXA Exposure to other specified factors, initial encounter; Y93.9 Activity, unspecified; Y92.9 Unspecified place or not applicable; Y99.8 Other external cause status | CPT/HCPCS: 99212 ==

== ENCOUNTER → 2023-05-23 08:05 | Outpatient (REF) | payer MEDICARE, MEDICAID, SELFPAY ==
--- NOTE | 2023-05-23 08:21 | CA_ITS ---
Transthoracic Echocardiogram Patient (Last, First, Middle): Anisha Esposito E Gender: Female Date of : 1950 Age: 72 Procedure Date: 05/23/2023 Procedure Type: Transthoracic Echocardiogram Location: OP Height: 157.48 cm Weight: 78.47 kg BSA: 1.80 m2 Heart Rate: bpm BP: 118 / 68 mmHg Crabber: RICHIE/LITO Referring MD: Sandy Rubi MD Symptoms: R01.1 HEART MURMUR PRE OP Z01.818 Study Quality: Adequate ECG Rhythm: Sinus Conclusions: - The visually estimated ejection fraction is between 60-65%. - No obvious valvular pathology seen on this study. - Small plaque is seen in the sino tubular ridge. Findings Left Ventricle Normal left ventricular cavity size. The left ventricular systolic function is normal. The visually estimated ejection fraction is between 60-65%. There is no evidence of regional wall motion abnormalities. Diastolic function is normal for age. LV peak GLS -20.1%. Right Ventricle Mildly increased right ventricular cavity size. There is normal right ventricular systolic function. Atria Both atria are normal in size. Aortic Valve There is a normal trileaflet aortic valve. There is no aortic valve stenosis. There is no aortic valve regurgitation. Mitral Valve The mitral valve appears normal. There is no mitral valve regurgitation. There is no mitral valve stenosis. Pulmonic Valve The pulmonic valve is likely normal. Tricuspid Valve Normal tricuspid valve structure. There is trace tricuspid valve regurgitation. There is no evidence of pulmonary hypertension. Great Vessels The asc aorta is normal in size. Small plaque is seen in the sino tubular ridge. Venous The inferior vena cava is normal in size and collapses greater than 50% with inspiration. Pericardium/Pleural There is no evidence of pericardial effusion. Prior Study Comparison No significant change compared to prior study dated: 10/26/2020. Recommendations, Care & Conclusions No obvious valvular pathology seen on this study. Measurements 2D Linear Measurements IVSd: 1.00 0.6-0.9/0.6-1.0 cm LVIDd: 4.20 3.9-5.3/4.2-5.9 cm LVIDd Index: 2.33 2.4-3.2/2.2-3.1 cm/m2 LVIDs: 2.60 2.0-3.6 cm LVPWd: 0.90 0.7-1.1 cm LA Diam: 2.80 2.7-3.8/3.0-4.0 cm LAIDs Index: 1.56 1.5-2.3 cm/m2 LV Mass: 159.01 67-162/88-224 g LV Mass Index: 88.34 43-95/49-115 g/m2 LVOT Diam: 2.10 3.0+(-)1.3 cm Mitral Valve MV Pk E: 0.83 MV PK A: 0.73 MV Decel Time: 189.00 E/A: 1.10 E'Lateral: 10.70 E'Medial: 7.18 E/E' Med: 11.50 E/E' Lat: 7.70 PHT: 55.00 MVA PHT: 4.00 Decel [place]: 4.39 Aortic Valve AoV Pk Eleuterio: 1.19 AoV Mn Eleuterio: 0.84 AoV VTI: 0.30 AoV Pk Grad: 6.00 Aov Mn Grad: 3.00 СЕРГЕЙ Cont.VTI: 2.57 LVOT LVOT Pk Eleuterio: 0.92 LVOT Mn Eleuterio: 0.59 LVOT VTI: 0.22 LVOT Pk Grad: 3.00 LVOT Mn Grad: 2.00 LVOT Diam: 2.10 LVOT Area: 3.46 Diastolic Function MV Pk E: 0.83 MV Pk A: 0.73 E/A: 1.10 E'Medial: 7.18 E/E' Med: 11.50 E' Laterial: 10.70 E/E' Lat: 7.70 Right Ventricle TAPSE (mm): 20.30 TVS' Eleuterio: 10.70 Tricuspid Valve TR Pk Eleuterio: 1.79 TR Pk Grad: 13.00 RA Press: 3.00 RVSP: 16.00 Great Vessels Aorta Sinus of Valsalva: 3.10 2.0-3.[address] [place]: 2.20 1.7-3.4 cm Ao Asc: 2.80 2.1-3.4 cm Updated in Other Vendor System with Status of Final Deangelo Small MD electronically signed on 05/25/2023 11:49:29 AM with status of Final
== END ==
LOC: HO.CARD 08:05
PROVIDERS: PCP Family Medicine; Visit Provider Family Medicine
DX: R94.31 Abnormal electrocardiogram [ECG] [EKG] (principal)
CPT/HCPCS: 93306; 93356

== ENCOUNTER → 2023-05-23 08:21 | Outpatient (BNV) | payer MEDICARE, MEDICAID, SELFPAY | PROVIDERS: PCP Family Medicine; Visit Provider Internal Medicine | DX: R01.1 Cardiac murmur, unspecified (principal); Z01.818 Encounter for other preprocedural examination | CPT/HCPCS: 93306 ==

== ENCOUNTER 2023-05-29 11:12 | Outpatient (REF) | payer MEDICARE, MEDICAID, SELFPAY ==
--- NOTE | ~2023-05-29 | MM_ITS ---
EXAMINATION: MM DIAGNOSTIC DIGITAL BREAST TOMOSYNTHESIS, RIGHT US BREAST LIMITED, RIGHT MAMMOGRAPHY: CLINICAL INFORMATION: Right axillary lump The patient has a history of LEFT lobular carcinoma in situ diagnosed in 2011. COMPARISON: Mammography: This study is compared with the prior mammograms dating back to 2018. TECHNIQUE: Digital breast tomosynthesis is performed in both the craniocaudal and mediolateral oblique views along with computer-aided detection (CAD). Synthesized 2D images are generated from the tomosynthesis. FINDINGS: There are scattered areas of fibroglandular density (ACR BI-RADS breast composition Category b). There are no significant masses, abnormal calcifications, or other abnormalities. There are no mammographic abnormalities in the right axilla. ULTRASOUND: CLINICAL INFORMATION: Left axillary lump COMPARISON: None TECHNIQUE: Targeted sonographic evaluation was performed using a high frequency linear transducer. Selected archived documentation. FINDINGS: RIGHT BREAST: Sonography of the right axillary contents reveals no abnormalities. MM/MM tomosynthesis diagnostic RT IMPRESSION: Normal right mammogram and right axillary ultrasound. Clinical follow-up for the patient's palpable left axillary lump is advised. OVERALL ASSESSMENT: Mammography: BI-RADS 1 - Negative Ultrasound: BI-RADS 1 - Negative RECOMMENDATION: 1 year F/U Clinical follow-up for the patient's palpable lump is advised. Annual screening mammography is also advised. Results were provided to the patient at time of visit by the technologist. This patient's information was entered into a reminder system with a target due date for their next mammogram.
== END 2023-05-29 11:13 | disposition home or self-care (01) ==
LOC: HO.MAMMO 11:12
PROVIDERS: PCP Family Medicine; Visit Provider Internal Medicine Medical Oncology
DX: N63.31 Unspecified lump in axillary tail of the right breast (principal)
CPT/HCPCS: 76642; 77061; 77065

== ENCOUNTER → 2023-05-29 11:30 | Outpatient (BNV) | payer MEDICARE, MEDICAID, SELFPAY | PROVIDERS: PCP Family Medicine; Visit Provider Radiology Diagnostic Radiology | DX: N60.01 Solitary cyst of right breast (principal) | CPT/HCPCS: 76642; 77061; 77065; G0279 ==

== ENCOUNTER → 2023-05-30 07:40 | Outpatient (REF) | payer MEDICARE, MEDICAID, SELFPAY ==
--- NOTE | ~2023-05-30 | NM_ITS ---
Myocardial perfusion study Indication: Abnormal EKG Technique: The patient was brought in for a Lexiscan perfusion study on 05/30/2023. Patient performed low-level exercise and was injected 0.4 mg of Lexiscan intravenously. Within a minute of injection, 25 mCi of sestamibi was given intravenously. Images were obtained using the SPECT gamma camera interlaced with the gating device. Images were obtained in supine position. Resting perfusion study was performed on 05/31/2023. Patient was administered 25 mCi of sestamibi intravenously at rest. Images were then obtained in supine position. Images obtained with and without CT attenuation. Total DLP 116 mGy-cm. Images were processed with the software and compared side to side in short axis, horizontal long axis and vertical long axis views. Findings: Both stress and rest perfusion study were limited due to intense subdiaphragmatic uptake interfering with inferior wall uptake The stress perfusion study showed non attenuated images show normal uptake of radiotracer in all segments of LV myocardium. The gated study shows normal LV systolic function with visually estimated LVEF of greater than 60%. LV cavity is normal size. The gated study shows normal systolic wall thickening and contraction of segments. Resting study shows no change in perfusion pattern compared to stress perfusion study. Gating at rest reveals normal systolic wall motion with ejection fraction at 58%. The findings are consistent with likely normal myocardial perfusion. NM/NM yoly perf SPECT rest & str Impression: 1. Myocardial perfusion imaging study shows likely normal myocardial perfusion 2. Gated LVEF is 58% 3. Transient ischemic dilatation not present EKG is nondiagnostic for ischemia
--- NOTE | 2023-05-30 07:42 | CA_ITS ---
Acquisition Time: 2023-05-30 07:58:42 Total Exercise Time: 00:02:13 Test Indications: Abnormal Treadmill Test Medications: MECLIZINE VENTOLIN CETIRIZINE LEVOTHYROXINE SINGULAIR PANTOPRAZOLE HYDROCODONE Protocol: REHANA Max HR: 120 BPM 81% of Pred: 147 BPM Max BP: 170/058 mmHG Max Work Load: 4.6 METS Exercise stress test exercise 2 min 13 sec of Rehana protocol achieivng 80% MPHR with need to stop due to moderate SOB, no chest discomfort, without arrhythmias, with peak BP 170/58, with nondiagnosiitic EKGs. Pt assisted to sitting position and once breathing returned to normal test changes to pharmacolgoical stress test. Pharmaclogical stress test with Lexiscan injection while sitting and kicking her legs, without anginal symptoms, without arrhythmias, with normotensive response to injection, with nondiagnoisitic EKG. Aminophylline 75mg IVP given to reverse Lexiscan. Nuclear images pending. Test reviewed with Dr. Navas Referred By: Sandy Rubi Overread By: Johanne Morillo
== END ==
LOC: HO.CARD 07:40
PROVIDERS: PCP Family Medicine; Visit Provider Family Medicine
DX: R94.31 Abnormal electrocardiogram [ECG] [EKG] (principal)
CPT/HCPCS: 78452; 93017; A9500; J0280; J2785

== ENCOUNTER → 2023-05-30 07:42 | Outpatient (BNV) | payer MEDICARE, MEDICAID, SELFPAY | PROVIDERS: PCP Family Medicine; Visit Provider Nurse Practitioner | DX: R94.31 Abnormal electrocardiogram [ECG] [EKG] (principal) | CPT/HCPCS: 78452; 93016; 93018 ==

== ENCOUNTER 2023-06-01 08:53 | Outpatient (REF) | payer MEDICARE, MEDICAID, SELFPAY ==
--- NOTE | ~2023-06-01 | XR_ITS ---
EXAMINATION: XR ABDOMEN KUB CLINICAL INDICATION: Status post right ESWL on 02/07/2023 COMPARISON: 02/07/2023 TECHNIQUE: 2 AP views of the abdomen. FINDINGS: Surgical clips right upper quadrant of abdomen. Nonobstructive bowel gas pattern. Moderate amount of stool in the colon. Visualization of the bilateral kidneys is limited due to overlying bowel. Redemonstration of possible tiny calculus overlying the interpolar region right kidney, difficult to confirm due to overlying bowel. Degenerative changes in the lumbar spine. Tiny pelvic calcifications are likely vascular. XR/XR KUB IMPRESSION: Redemonstration of possible tiny calculus overlying the interpolar region right kidney, difficult to confirm due to overlying bowel.
== END 2023-06-01 08:54 | disposition home or self-care (01) ==
LOC: HO.XRAY 08:53
PROVIDERS: PCP Family Medicine; Visit Provider Urology
DX: N20.0 Calculus of kidney (principal)
CPT/HCPCS: 74018

== ENCOUNTER 2023-06-13 13:07 | Outpatient (AMB) | payer MEDICARE, MEDICAID, SELFPAY ==
--- NOTE | 2023-06-13 13:12 | A.OFFVIS_ITS ---
Intake Intake Visit Reasons: 3 month 24hr urine/x rays(set) Intake Note: Patient is present for follow up kidney stone/KUB (imaging 06/01/23) Urology Medications: none Blood Thinner: none Scientist Propagator Required: No Accompanied by: Self / Same As Patient Allergies aspirin [ASPIRIN] Allergy (Intermediate, Verified 06/13/23 13:21) RASH Penicillins [PENICILLINS] Allergy (Intermediate, Verified 06/13/23 13:21) HIVES, BLACK SPOTS Medication List - Last Reconciled 06/13/23 by KATT Lomax albuterol sulfate 90 mcg/actuation 2 puffs inhalation Q4-6H PRN ascorbic acid (vitamin C) (Vitamin C) 1 g PO Q6H cholecalciferol (vitamin D3) 25 mcg PO DAILY cyanocobalamin (vitamin B-12) 1,000 mcg IM [id number] dicyclomine 2 caps PO Q6H PRN levothyroxine 88 mcg PO DAILY Magic Mouthwash Diphen/Lido/Antacid 1:1:1 10 mL PO QID meclizine 1 tab PO TID PRN montelukast 10 mg PO DAILY pantoprazole 40 mg PO DAILY simethicone 250 mg PO BID PRN HPI HPI Comments History of Present Illness Details Anisha is a very pleasant 72-year-old female who is a patient of Dr. Rubi. She has a past medical history of IBS, lymphoma, diverticulitis, diverticulosis, hypothyroidism, GERD, asthma, B12 deficiency anemia, pulmonary embolism, osteoarthritis of bilateral knees, and left-sided breast cancer status post lumpectomy/radiation/tamoxifen. She presents to the office today for follow-up of her nephrolithiasis. In discussion with the patient today she reports to be doing and feeling well. Recent KUB results reviewed with the patient today. Redemonstration of possible tiny calculus overlying the interpolar region of the right kidney. Difficult to confirm due to overlying bowel. When asked patient denies any bothersome urinary issues or concerns at this time. She denies urinary urgency, urinary frequency, incontinence, nocturia, hematuria, dysuria, foul smelling urine, changes to urinary stream, flank pain, fever, and or chills. She is happy with her current voiding parameters. In office urinalysis results reviewed with the patient today. Patient with a previous post right-sided ESWL on 02/07/[address] Foster. Discussed and stressed the importance of drinking plenty of water daily. Plan was for metabolic workup with 24 hour urine collection however patient reports she has been unable to collect her urine due to her busy schedule. She other hernandez denies any bothersome issues or concerns at this time. [facility] Medical History IBS (irritable bowel syndrome) Lymphoma Diverticulitis Diverticulosis Hypothyroid Tubal ligation evaluation GERD (gastroesophageal reflux disease) Aberrant thyroid gland Asthma B12 deficiency anemia Pulmonary embolism Primary osteoarthritis of knees, bilateral Breast cancer, left breast Surgical History (Updated 06/13/23 @ 09:11 by Senia Noriega RN) History of endoscopy Hx of nasal septoplasty Hx of lithotripsy History of lumpectomy of left breast Hx of cholecystectomy History of esophagogastroduodenoscopy (EGD) H/O colonoscopy Hx of lymph node biopsy History of bone marrow biopsy History of removal of Port-a-Cath History of vocal cord polypectomy Hx of rotator cuff surgery Hx of carpal tunnel repair Family History Mother Family hx of colon cancer Arthritis Father Hx of kidney disease Brother History of throat cancer Daughter Arthritis Sister Arthritis Social History Household Members: None Housing: Condominium Are you a primary urgent care physician to a significant other at home: No Do you presently have visiting nurse or other home services: Yes (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) Alcohol intake: never Patient Tobacco Use Status: Former Tobacco user Second Hand Smoke Exposure: No service: No Current occupational status: disabled Sexual orientation: Straight/Heterosexual Gender identity: Female Female Reproductive History Menstrual Age of Menarche: 9 Review of Systems Const Reports as per HPI Eyes Reports no additional complaints ENT Reports no additional complaints Card Reports as per HPI Resp Reports as per HPI GI Reports as per HPI Reports as per HPI Musc Reports as per HPI Neuro Reports as per HPI Endo Reports as per HPI Physical Exam Const General: cooperative, healthy appearing, comfortable, no acute distress, well developed, alert and awake Orientation/consciousness: patient oriented x3 HEENT Head: Yes normal to inspection, Yes normocephalic and Yes atraumatic Ears: hearing grossly normal bilaterally Eyes General: appearance normal, both eyes and all related structures Neck Neck: Yes normal visual inspection and Yes trachea midline Chest Chest palpation & inspection: normal inspection of the chest Resp Effort & Inspection: normal respiratory effort and able to speak in complete sentences Cardio Rate: regular rate GI Inspection: Yes normal to inspection General: Yes no CVA tenderness Back/Spine/Pelvis Back: no CVA tenderness Skin General skin exam: no rashes or lesions noted Neuro General: patient oriented x3 Extrem General: Yes normal to inspection Psych Appearance: grossly normal and well kempt Mental Status: mental status grossly normal Speech and movement: Normal speech and movement present and Clear speech present Affect: normal affect Attitude: cooperative Thought process: Normal thought process present Thought content: Normal thought content present Insight: Good insight present (Psych) Judgement: Good judgement present (Psych) Results AMB Urinalysis, Automated UA Leukoctes 0 Aditi/uL Last Edit by [email or web address] on 06/13/23 13:28 UA Nitrite Negative Last Edit by [email or web address] on 06/13/23 13:28 UA Urobilinogen 0.2 mg/dL Last Edit by [email or web address] on 06/13/23 13:28 UA Protein 0 mg/dL Last Edit by [email or web address] on 06/13/23 13:28 UA pH 6.0 Last Edit by [email or web address] on 06/13/23 13:28 UA Blood 0 Kalpesh/uL Last Edit by [email or web address] on 06/13/23 13:28 UA Specific [place] 1.010 Last Edit by [email or web address] on 06/13/23 13:28 UA Ketone Negative Last Edit by [email or web address] on 06/13/23 13:28 UA Bilirubin 0 mg/dL Last Edit by [email or web address] on 06/13/23 13:28 UA Glucose 0 mg/dL Last Edit by [email or web address] on 06/13/23 13:28 Results Reviewed Results Reviewed: Laboratory Last Values Urine pH (Auto) 6.0 06/13/23 13:18 Specific [place] (Auto) 1.010 06/13/23 13:18 Urine Protein (Auto) 0 mg/dL 06/13/23 13:18 Glucose (UA)(Auto) 0 mg/dL 06/13/23 13:18 Urine Ketones (Auto) Negative 06/13/23 13:18 Urine Blood (Auto) 0 Kalpesh/uL 06/13/23 13:18 Urine Nitrite (Auto) Negative 06/13/23 13:18 Urine Bilirubin (Auto) 0 mg/dL 06/13/23 13:18 Urine Urobilinogen (Auto) 0.2 mg/dL 06/13/23 13:18 Leukocyte Esterase (Auto) 0 Aditi/uL 06/13/23 13:18 Date of Service: 06/01/23 EXAMINATION: XR ABDOMEN KUB FINDINGS: Surgical clips right upper quadrant of abdomen. Nonobstructive bowel gas pattern. Moderate amount of stool in the colon. Visualization of the bilateral kidneys is limited due to overlying bowel. Redemonstration of possible tiny calculus overlying the interpolar region right kidney, difficult to confirm due to overlying bowel. Degenerative changes in the lumbar spine. Tiny pelvic calcifications are likely vascular. IMPRESSION: Redemonstration of possible tiny calculus overlying the interpolar region right kidney, difficult to confirm due to overlying bowel. Assessment & Plan Assessment & Plan (1) Kidney stone: Code(s): N20.0 - Calculus of kidney Plan In office urinalysis results reviewed with the patient today; as noted above. Recent KUB results reviewed with the patient today; as noted above. Patient denies any bothersome urinary issues or concerns at this time. She reports to be happy with current voiding parameters. Discussed attempting to obtain 24 hour urine collection as previously planned and discussed. Discussed, educated, encouraged on the importance of drinking plenty of water daily. Will obtain renal ultrasound in 1 year Follow-up in 1 year with imaging and 24 hour urine collection to be completed prior; or sooner with any issues, concerns, and or questions. Orders: Orders AMB Urinalysis Automated Today Z13.9 - Encounter for screening, unspecified US renal BI 364 Days N20.0 - Calculus of kidney Patient Instructions: The patient had an opportunity to ask questions regarding the treatment plan. All questions were answered. Physical exam, labs, and imaging were discussed and reviewed in detail. As well as risks, benefits, and discussion of treatment choices. No major barriers to understanding were identified. The patient expressed understanding and agreement with the above treatment plan. The patient was made aware they should contact our office by phone for worsening of their current condition, the appearance of new symptoms, or with any questions or concerns. Compliance is encouraged with any medications and follow up testing that is ordered. It is a privilege to be allowed the opportunity to participate in? your urological care.? Again, if you have any questions or concerns If you have any questions or concerns please do not hesitate to contact me. The office is [phone]. This note is constructed using voice recognition software. While every effort has been made to ensure accuracy animation camera operator errors may have been included. Yours sincerely, KATT Lomax Coding Level of Care Code Est Pt Level 3 (87664) Diagnoses Kidney stone N20.0
== END 2023-06-13 13:46 | disposition home or self-care (01) ==
PROVIDERS: PCP Family Medicine; Visit Provider Nurse Practitioner Family
DX: N20.0 Calculus of kidney (principal)
CPT/HCPCS: 99213

== ENCOUNTER → 2023-06-13 13:07 | Outpatient (BNVA) | payer MEDICARE, MEDICAID, SELFPAY | PROVIDERS: PCP Family Medicine; Visit Provider Nurse Practitioner Family | DX: N20.0 Calculus of kidney (principal) | CPT/HCPCS: 81003; 99212 ==

== ENCOUNTER 2023-06-14 08:16 | Outpatient (AMB) | payer MEDICARE, MEDICAID, SELFPAY ==
[2023-06-14 08:39] VITALS: BP 120/60; PULSE 81; BMI 30.4
--- NOTE | 2023-06-14 08:39 | MHC.OFFVIS ---
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 Required: No Accompanied by: Self / Same As Patient Allergies aspirin [ASPIRIN] Allergy (Intermediate, Verified 06/14/23 08:42) RASH Penicillins [PENICILLINS] Allergy (Intermediate, Verified 06/14/23 08:42) HIVES, BLACK SPOTS Medication List - Last Reconciled 06/14/23 by Deangelo Small MD albuterol sulfate 90 mcg/actuation 2 puffs inhalation Q4-6H PRN ascorbic acid (vitamin C) (Vitamin C) 1 g PO Q6H cholecalciferol (vitamin D3) 25 mcg PO DAILY cyanocobalamin (vitamin B-12) 1,000 mcg IM [id number] dicyclomine 2 caps PO Q6H PRN levothyroxine 88 mcg PO DAILY Magic Mouthwash Diphen/Lido/Antacid 1:1:1 10 mL PO QID meclizine 1 tab PO TID PRN montelukast 10 mg PO DAILY pantoprazole 40 mg PO DAILY simethicone 250 mg PO BID PRN HPI HPI Comments History of Present Illness Details Anisha is here for consultation regarding preoperative risk stratification for knee surgery. She does not have any known cardiac issues. No history of any coronary artery disease or myocardial infarction or cardiomyopathy or in fact anything cardiac sounding. She states she can walk at least 15-20 minutes on level ground without issues. When she goes up stairs, main limitation is knee pain. Some shortness of breath with strenuous physical activity. Denies any history of diabetes, hypertension or dyslipidemia. [facility] Medical History IBS (irritable bowel syndrome) Lymphoma Diverticulitis Diverticulosis Hypothyroid Tubal ligation evaluation GERD (gastroesophageal reflux disease) Aberrant thyroid gland Asthma B12 deficiency anemia Pulmonary embolism Primary osteoarthritis of knees, bilateral Breast cancer, left breast Surgical History History of endoscopy Hx of nasal septoplasty Hx of lithotripsy History of lumpectomy of left breast Hx of cholecystectomy History of esophagogastroduodenoscopy (EGD) H/O colonoscopy Hx of lymph node biopsy History of bone marrow biopsy History of removal of Port-a-Cath History of vocal cord polypectomy Hx of rotator cuff surgery Hx of carpal tunnel repair Family History Mother Family hx of colon cancer Arthritis Father Hx of kidney disease Brother History of throat cancer Daughter Arthritis Sister Arthritis Social History Household Members: None Housing: Condominium Are you a primary home care specialist to a significant other at home: No Do you presently have visiting nurse or other home services: Yes (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 SOCIAL WORKER) Alcohol intake: never Patient Tobacco Use Status: Former Tobacco user Second Hand Smoke Exposure: No service: No Current occupational status: disabled Sexual orientation: Straight/Heterosexual Gender identity: Female Female Reproductive History Menstrual Age of Menarche: 9 Review of Systems Const Denies chills, Denies daytime sleepiness, Denies fatigue, Denies fever(s), Denies frequent falls, Denies night sweats, Denies snoring, Denies weakness, Denies weight gain and Denies weight loss Eyes Denies loss of vision ENT Denies dizziness and Denies hearing loss Card Denies chest pain, Denies chest pain with activity, Denies syncope, Denies rapid heart rate, Denies edema, Denies claudication, Denies leg edema, Denies lightheadedness, Denies palpitations, Denies dyspnea, Denies dyspnea on exertion and Denies orthopnea Resp Denies cough, Denies excessive phlegm production, Denies dyspnea, Denies dyspnea on exertion, Denies snoring and Denies wheezing GI Denies abdominal pain, Denies hematochezia, Denies change in bowel habits, Denies change in stool character, Denies heartburn, Denies nausea and Denies vomiting Denies hematuria, Denies urinary frequency and Denies dysuria Musc Denies arthralgias, Denies muscle weakness, Denies numbness and Denies tingling Skin/Breast Denies nail changes and Denies rash Neuro Denies Abnormal speech present, Denies dizziness, Denies syncope, Denies frequent falls, Denies loss of vision, Denies memory loss, Denies numbness, Denies tingling and Denies weakness Psych Denies depression and Denies memory loss Endo Denies fatigue and Denies palpitations Aller/Immun Denies wheezing Physical Exam Vital Signs: Last Vital Signs Pulse 81 06/14/23 08:39 BP 120/60 06/14/23 08:39 BMI result Body Mass Index 30.4 Const General: comfortable and no acute distress Orientation/consciousness: patient oriented x3 HEENT Other: Unremarkable Head: Yes normal to inspection Neck Neck: Yes normal visual inspection Chest Chest palpation & inspection: normal inspection of the chest Resp Auscultation: clear to auscultation bilaterally Cardio Palpation: normal PMI Heart sounds: S1 normal heart sound present, S2 normal heart sound present, no gallops, no murmurs and no rubs GI Palpation (GI): Soft to palpation Back/Spine/Pelvis Other: unremarkable Skin General skin exam: no rashes or lesions noted Neuro General: patient oriented x3 Speech: No Abnormal speech present Extrem General: Yes normal to inspection Psych Mental Status: mental status grossly normal Office Procedures EKG Details: EKG with sinus rhythm at 81/Min; no significant ST-T changes and otherwise unremarkable. Borderline [place] prolongation at 208 millisecond; [place]. [id number], Complete Assessment & Plan Assessment & Plan (1) Preoperative cardiovascular examination: Code(s): Z01.810 - Encounter for preprocedural cardiovascular examination Plan Cardiac studies reviewed. Echocardiogram with LVEF of 60-60%. No significant valvular issues. Small plaque in the sinotubular ridge of ascending aorta. Myocardial perfusion imaging study shows likely normal perfusion. With regard to knee surgery, may proceed as planned. Low cardiac risk. With regard to the ascending aortic plaque, advised to get her cholesterol checked through her own PCP and consider statins. Patient understands. Coding Level of Care Code New Pt Level 3 (11026) Diagnoses Preoperative cardiovascular examination Z01.810 CPT Codes EKG - CPT: 25025-[id number], Complete ([id number])
== END 2023-06-14 08:59 | disposition home or self-care (01) ==
PROVIDERS: PCP Family Medicine; Visit Provider Internal Medicine
DX: Z01.810 Encounter for preprocedural cardiovascular examination (principal)
CPT/HCPCS: 93010; 99213

== ENCOUNTER → 2023-06-14 08:16 | Outpatient (BNVA) | payer MEDICARE, MEDICAID, SELFPAY | PROVIDERS: PCP Family Medicine; Visit Provider Internal Medicine | DX: Z01.810 Encounter for preprocedural cardiovascular examination (principal); R06.02 Shortness of breath | CPT/HCPCS: 93005; 99212 ==

== ENCOUNTER 2023-06-22 10:59 | Day surgery (SDC) | payer MEDICARE, MEDICAID, SELFPAY ==
[2023-06-13 09:15] VITALS: BMI 29.5
--- NOTE | 2023-06-21 10:34 | HO.ANESPROP2 ---
Documented by User: Juanis Frank NP 06/21/23 10:36 HPI - Anesthesia Eval Consult details Narrative: 72yo F for Right Knee Arthroscopy partial medial meniscectomy,poss lateral meniscectomy Cardiac optimized PMFSH Active Problems Active Problems: All Active Problems (Updated 06/14/23 @ 08:53 by Deangelo Small MD) Preoperative cardiovascular examination (Acute) Tear of medial meniscus of left knee (Acute) Venous insufficiency of both lower extremities (Acute) Bilateral leg cramps (Acute) Osteoarthritis of right knee (Acute) Kidney stone (Acute) Left renal stone (Acute) Follicular low grade B-cell lymphoma (Acute) Abdominal lymphadenopathy (Acute) Lobular carcinoma in situ (LCIS) of left breast (Acute) AMANDA positive (Acute) GERD (gastroesophageal reflux disease) (Acute) Asthma (Acute) Breast cancer, left breast (Acute) Diverticulosis (Acute) Hypothyroid (Acute) Pulmonary embolism (Acute) B12 deficiency anemia (Acute) Past Medical History Medical History IBS (irritable bowel syndrome) Lymphoma Diverticulitis Diverticulosis Hypothyroid Tubal ligation evaluation GERD (gastroesophageal reflux disease) Aberrant thyroid gland Asthma B12 deficiency anemia Pulmonary embolism Primary osteoarthritis of knees, bilateral Breast cancer, left breast Family History Family History Mother Family hx of colon cancer Arthritis Father Hx of kidney disease Brother History of throat cancer Daughter Arthritis Sister Arthritis Family history of problems with anesthesia: No Surgical History Surgical History History of endoscopy Hx of nasal septoplasty Hx of lithotripsy History of lumpectomy of left breast Hx of cholecystectomy History of esophagogastroduodenoscopy (EGD) H/O colonoscopy Hx of lymph node biopsy History of bone marrow biopsy History of removal of Port-a-Cath History of vocal cord polypectomy Hx of rotator cuff surgery Hx of carpal tunnel repair History of Problems with Anesthesia: No Social History Social History Household Members: None Housing: Condominium Are you a primary child day care teacher to a significant other at home: No Do you presently have visiting nurse or other home services: Yes ([employer]) Alcohol intake: never Patient Tobacco Use Status: Former Tobacco user Second Hand Smoke Exposure: No Are you DNR?: No Advance Directives: No Advance Directives Information Provided: Yes Nutrition Risks: No Nutritional Risk service: No Current occupational status: disabled Sexual orientation: Straight/Heterosexual Gender identity: Female Meds Allergies Allergy/AdvReac Type Severity Reaction Status Date / Time aspirin [ASPIRIN] Allergy Intermediate RASH Verified 06/22/23 11:39 Penicillins [PENICILLINS] Allergy Intermediate HIVES, BLACK Verified 06/22/23 11:39 SPOTS Active Medications: Current Medications Clindamycin Phosphate (Cleocin) 900 mg in 50 mls @ 50 mls/hr IV PREOP ONE Stop: 06/22/23 05:55 Home Medications Medication Instructions Recorded Confirmed Last Taken Type albuterol sulfate 90 mcg/actuation 2 puff inhalation Q4-6H PRN 05/03/20 06/14/23 Unknown History aerosol inhaler Shortness Of Breath levothyroxine 88 mcg tablet 88 mcg PO DAILY 05/03/20 06/14/23 06/22/23 History montelukast 10 mg tablet 10 mg PO DAILY 05/03/20 06/14/23 Unknown History pantoprazole 40 mg tablet,delayed 40 mg PO DAILY 05/03/20 06/14/23 06/22/23 History release cholecalciferol (vitamin D3) 25 25 mcg PO DAILY 05/14/20 06/14/23 Unknown History mcg (1,000 unit) capsule cyanocobalamin (vitamin B-12) 1,000 mcg IM [id number] 05/14/20 06/14/23 Unknown History 1,000 mcg/mL injection solution ascorbic acid (vitamin C) 1,000 mg 1 g PO Q6H 11/11/20 06/14/23 Unknown History tablet (Vitamin C) simethicone 125 mg tablet 250 mg PO BID PRN Gastrointestinal 11/11/20 06/14/23 Unknown History Spasms Or Cramping meclizine 25 mg tablet 1 tab PO TID PRN Dizziness 12/12/21 06/14/23 Unknown History dicyclomine 10 mg capsule 2 cap PO Q6H PRN Gastrointestinal 03/07/22 06/14/23 Unknown History Spasms Or Cramping Exam Height,Weight and Vital Signs: Height 5 ft 4 in Weight 78.018 kg Pertinent Lab Results Pertinent Lab Results: Laboratory Tests 05/17/23 08:23 WBC 6.0 Hgb 10.7 L Hct 34.1 L Plt Count 187 Sodium 142 Potassium 4.1 Chloride 108 Carbon Dioxide 23 BUN 11 Creatinine 0.75 Narrative Narrative: Per 06/2023 cardiology clearance visit EKG with sinus rhythm at 81/Min; no significant ST-T changes and otherwise unremarkable. Borderline RI prolongation at 208 millisecond; normal corrected QT. Cardiac studies reviewed. Echocardiogram with LVEF of 60-60%. No significant valvular issues. Small plaque in the sinotubular ridge of ascending aorta. Myocardial perfusion imaging study shows likely normal perfusion. Assessment and Plan Assessment Anesthesia Assessment: Chart Reviewed Final Anesthetic Review Family History of Problems with Anesthesia: No History of Problems with Anesthesia: No Documented by User: Jerrica Wilkerson MD 06/22/23 11:58 [facility] Past Medical History Medical History IBS (irritable bowel syndrome) Lymphoma Diverticulitis Diverticulosis Hypothyroid Tubal ligation evaluation GERD (gastroesophageal reflux disease) Aberrant thyroid gland Asthma B12 deficiency anemia Pulmonary embolism Primary osteoarthritis of knees, bilateral Breast cancer, left breast Family History Family History Mother Family hx of colon cancer Arthritis Father Hx of kidney disease Brother History of throat cancer Daughter Arthritis Sister Arthritis Family history of problems with anesthesia: No Surgical History Surgical History History of endoscopy Hx of nasal septoplasty Hx of lithotripsy History of lumpectomy of left breast Hx of cholecystectomy History of esophagogastroduodenoscopy (EGD) H/O colonoscopy Hx of lymph node biopsy History of bone marrow biopsy History of removal of Port-a-Cath History of vocal cord polypectomy Hx of rotator cuff surgery Hx of carpal tunnel repair Social History Social History Household Members: None Housing: Condominium Are you a primary child day care teacher to a significant other at home: No Do you presently have visiting nurse or other home services: Yes ([employer]) Alcohol intake: never Patient Tobacco Use Status: Former Tobacco user Second Hand Smoke Exposure: No Are you DNR?: No Advance Directives: No Advance Directives Information Provided: Yes Nutrition Risks: No Nutritional Risk service: No Current occupational status: disabled Sexual orientation: Straight/Heterosexual Gender identity: Female Meds Allergies Allergy/AdvReac Type Severity Reaction Status Date / Time aspirin [ASPIRIN] Allergy Intermediate RASH Verified 06/22/23 11:39 Penicillins [PENICILLINS] Allergy Intermediate HIVES, BLACK Verified 06/22/23 11:39 SPOTS Home Medications Medication Instructions Recorded Confirmed Last Taken Type albuterol sulfate 90 mcg/actuation 2 puff inhalation Q4-6H PRN 05/03/20 06/14/23 Unknown History aerosol inhaler Shortness Of Breath levothyroxine 88 mcg tablet 88 mcg PO DAILY 05/03/20 06/14/23 06/22/23 History montelukast 10 mg tablet 10 mg PO DAILY 05/03/20 06/14/23 Unknown History pantoprazole 40 mg tablet,delayed 40 mg PO DAILY 05/03/20 06/14/23 06/22/23 History release cholecalciferol (vitamin D3) 25 25 mcg PO DAILY 05/14/20 06/14/23 Unknown History mcg (1,000 unit) capsule cyanocobalamin (vitamin B-12) 1,000 mcg IM [id number] 05/14/20 06/14/23 Unknown History 1,000 mcg/mL injection solution ascorbic acid (vitamin C) 1,000 mg 1 g PO Q6H 11/11/20 06/14/23 Unknown History tablet (Vitamin C) simethicone 125 mg tablet 250 mg PO BID PRN Gastrointestinal 11/11/20 06/14/23 Unknown History Spasms Or Cramping meclizine 25 mg tablet 1 tab PO TID PRN Dizziness 12/12/21 06/14/23 Unknown History dicyclomine 10 mg capsule 2 cap PO Q6H PRN Gastrointestinal 03/07/22 06/14/23 Unknown History Spasms Or Cramping Exam Airway Mallampati Class: II TM Dist: >3cm Neck ROM: Full Heart: rrr Lungs: cta Assessment and Plan Assessment Anesthesia Assessment: Anesthesia Plan Discussed Final Anesthetic Review Family History of Problems with Anesthesia: No NPO: Yes ASA Class: III Final Preanesthetic Review: No Changes in Pt Med Stat, Meds/Allgs Chart Reviewed, Consent Obtained/Reviewed and Anes Risks/Benef Reviewed Patient Risk: Low Procedure Risk: Low Anesthetic Plan Anesthetic Plan: GA Disposition: Standard PACU
[2023-06-22] VITALS (8 sets, daily range): BP systolic 100–142; BP diastolic 59–76; PULSE 60–75; RESP 16–18; TEMP 36.2–36.7; O2SAT 98–100
[2023-06-22] MEDS: Lactated Ringers 1,000 ML 100 ML IVCONT (12:13)
--- NOTE | 2023-06-22 12:39 | PC.NURSE ---
IV inerted by conner diaz rn.
--- NOTE | 2023-06-22 14:41 | PM.OP ---
Brief Operative Note Date of Service: 06/22/23 Pre-op diagnosis: Right knee medial meniscus tear, right knee lateral meniscus tear, right knee degenerative joint disease Post-op diagnosis: same Procedure: Right knee diagnostic arthroscopy with arthroscopic partial medial and lateral meniscectomies, chondroplasty of the undersurface of the patella as well as the medial femoral condyle, plica excision Implants: none Surgeon: Carlo Mitchell MD Anesthesia: GLMA Was an Band Edger used for this Procedure?: No Estimated blood loss (mL): 10 Pathology: none sent Condition: stable Disposition: PACU
--- NOTE | 2023-06-22 14:43 | P.OP_ITS ---
Operative Note Operative Note Date of Service: 06/22/23 Narrative: After the patient was identified as Anisha Esposito and their right knee was initialed by myself they were brought to the operating room where general anesthesia was induced by the anesthesiologist in routine fashion. Because of the patient's allergy to penicillin she was given 900 mg of IV clindamycin preoperatively for infection prophylaxis. A formal time-out was completed. The patient's right lower extremity was prepped and draped in sterile fashion. Marcaine with epinephrine was injected into the planned incision sites as well as their left knee joint. A # 11 scalpel blade was used to make an anterolateral portal 1 cm proximal to the joint line and 1 cm lateral to the patellar tendon. Blunt trocar technique was used into the suprapatellar pouch with the knee in extension. Diagnostic arthroscopy showed multiple bands of thickened plica which would be excised at the end of the procedure. There were no loose bodies or abnormalities found in either the medial or lateral gutters. There were diffuse grade 2 degenerative changes of the undersurface of the patella as well as grade 1 degenerative changes of the trochlear groove. The patient's knee was flexed to 45 degrees and a valgus force was placed upon it. The medial compartment was entered. An anteromedial portal was made 1 cm proximal to the joint line and 1 cm medial to the patellar tendon. Probing of the medial meniscus showed a radial tear of the posterior horn. A partial medial meniscectomy was performed using the arthroscopic shaver. Following the partial meniscectomy the remainder of the meniscus tissue was stable. There w ere diffuse grades 2 degenerative changes of the medial femoral condyle as well as diffuse grade 1 degenerative changes of the medial tibial plateau. The articular surface of the medial femoral condyle was made smooth using the arthroscopic shaver. The articular surface of the medial tibial plateau was already smooth so no chondroplasty was indicated. The patient's knee was then placed into a neutral position. There was no injury to the anterior cruciate ligament. The patient's knee was then placed into the figure of 4 position and the lateral compartment was entered. There were minimal degenerative changes of the lateral femoral condyle and lateral tibial plateau. There was a radial tear of the anterior horn of the lateral meniscus. A partial lateral meniscectomy was performed using the arthroscopic shaver. Following the partial meniscectomy the remainder of the meniscus tissue was stable. The patient's knee was once again brought into extension and the suprapatellar pouch was entered. The arthroscopic shaver and the ArthroCare Wand were used to excise the thickened bands of plica. The undersurface of the patella was then made smooth using the arthroscopic shaver. The articular surface of the trochlear groove was already smooth so no chondroplasty was indicated. The knee joint was irrigated and then drained. All arthroscopic instruments were removed. The 2 portals were closed with 3-0 nylon interrupted suture. The knee joint was injected with Marcaine. Dry sterile dressing and Westley bandages were placed over the patient's knee. The patient was woken and expand the operating room. They were transferred to the recovery room in stable condition.
== END 2023-06-22 15:44 | disposition home or self-care (01) ==
PROVIDERS: PCP Family Medicine; Visit Provider Orthopaedic Surgery
PROC: (CPT 29870; principal; 2023-06-22 13:10)
DX: S83.241A Other tear of medial meniscus, current injury, right knee, initial encounter (principal); S83.281A Other tear of lateral meniscus, current injury, right knee, initial encounter; X58.XXXA Exposure to other specified factors, initial encounter; Y93.9 Activity, unspecified; Y92.9 Unspecified place or not applicable; Y99.9 Unspecified external cause status; M17.11 Unilateral primary osteoarthritis, right knee; M25.361 Other instability, right knee; M67.51 Plica syndrome, right knee; J45.909 Unspecified asthma, uncomplicated; E03.9 Hypothyroidism, unspecified; Q89.2 Congenital malformations of other endocrine glands; D51.9 Vitamin B12 deficiency anemia, unspecified; Z79.899 Other long term (current) drug therapy; Z88.0 Allergy status to penicillin; Z88.8 Allergy status to other drugs, medicaments and biological substances; Z98.890 Other specified postprocedural states; Z85.3 Personal history of malignant neoplasm of breast; Z86.711 Personal history of pulmonary embolism; Z87.891 Personal history of nicotine dependence
CPT/HCPCS: 29880; J0131; J0171; J0736; J1100; J2371; J2405; J2704; J2795; J3010

== ENCOUNTER → 2023-06-22 10:59 | Outpatient (BNV) | payer MEDICARE, MEDICAID, SELFPAY | PROVIDERS: PCP Family Medicine; Visit Provider Orthopaedic Surgery | DX: S83.231A Complex tear of medial meniscus, current injury, right knee, initial encounter (principal); S83.271A Complex tear of lateral meniscus, current injury, right knee, initial encounter | CPT/HCPCS: 29880 ==

== ENCOUNTER 2023-07-05 10:11 | Outpatient (AMB) | payer MEDICARE, MEDICAID, SELFPAY ==
--- NOTE | 2023-07-05 10:25 | A.OFFVIS_ITS ---
Intake Intake Visit Reasons: s/p Right knee scope Intake Note: Anisha akbar 72 year old female presents today for a post operative Right knee , DOS 06/22/23 DRJavi Patient reports she is doing well, states mild pain however pain is tolerable. Allergies aspirin [ASPIRIN] Allergy (Intermediate, Verified 07/05/23 10:25) RASH Penicillins [PENICILLINS] Allergy (Intermediate, Verified 07/05/23 10:25) HIVES, BLACK SPOTS HPI s/p Right knee scope HPI Details 72 yo female returns to the office today s/p right knee aaa with dr yi on 06/22/23. She states she is doing well, she c/o some anterior knee pain. [facility] Medical History IBS (irritable bowel syndrome) Lymphoma Diverticulitis Diverticulosis Hypothyroid Tubal ligation evaluation GERD (gastroesophageal reflux disease) Aberrant thyroid gland Asthma B12 deficiency anemia Pulmonary embolism Primary osteoarthritis of knees, bilateral Breast cancer, left breast Surgical History History of endoscopy Hx of nasal septoplasty Hx of lithotripsy History of lumpectomy of left breast Hx of cholecystectomy History of esophagogastroduodenoscopy (EGD) H/O colonoscopy Hx of lymph node biopsy History of bone marrow biopsy History of removal of Port-a-Cath History of vocal cord polypectomy Hx of rotator cuff surgery Hx of carpal tunnel repair Family History Mother Family hx of colon cancer Arthritis Father Hx of kidney disease Brother History of throat cancer Daughter Arthritis Sister Arthritis Social History Household Members: None Housing: Condominium Are you a primary career professional to a significant other at home: No Do you presently have visiting nurse or other home services: Yes ([employer]) Alcohol intake: never Patient Tobacco Use Status: Former Tobacco user Second Hand Smoke Exposure: No service: No Current occupational status: disabled Sexual orientation: Straight/Heterosexual Gender identity: Female Female Reproductive History Menstrual Age of Menarche: 9 Review of Systems Const All systems reviewed & are unremarkable except as noted in HPI and below Physical Exam Extrem Other: Right knee: Incision clean, dry and intact. No erythema or drainage. No joint effusion. ROM is 0-100 degrees. Calf supple, nontender. NVI. Results Reviewed Results Reviewed: Date of Service: 06/22/23 Pre-op diagnosis: Right knee medial meniscus tear, right knee lateral meniscus tear, right knee degenerative joint disease Post-op diagnosis: same Procedure: Right knee diagnostic arthroscopy with arthroscopic partial medial and lateral meniscectomies, chondroplasty of the undersurface of the patella as well as the medial femoral condyle plica excision Implants: none Surgeon: Carlo Yi MD Assessment & Plan Assessment & Plan (1) Osteoarthritis of right knee: Code(s): M17.11 - Unilateral primary osteoarthritis, right knee Qualifiers: Osteoarthritis type: primary Qualified Code(s): M17.11 - Unilateral primary osteoarthritis, right knee (2) H/O meniscectomy of right knee: Code(s): Z98.890 - Other specified postprocedural states Plan 72-year-old female who returns to the office today for post-op left knee , 06/22/[address] Yi. She continues to have mild pain in the anterior aspect of her knee but is doing well otherwise. She has no other concerns today. Patient Instructions: Scribed for Mirella Jacobo PA-C, by Pradip Cortés medical records custodian, on 07/05/2023 at 10:30 AM EST. IMirella PA-C, have personally reviewed and agree with the information entered by the scribe. Coding Level of Care Code Global (72983) Diagnoses Primary osteoarthritis of right knee M17.11 Osteoarthritis type: primary H/O meniscectomy of right knee Z98.890
== END 2023-07-05 10:37 | disposition home or self-care (01) ==
PROVIDERS: PCP Family Medicine; Visit Provider Physician Assistant
DX: M17.11 Unilateral primary osteoarthritis, right knee (principal); Z98.890 Other specified postprocedural states
CPT/HCPCS: 99024

== ENCOUNTER → 2023-07-05 10:11 | Outpatient (BNVA) | payer MEDICARE, MEDICAID, SELFPAY | PROVIDERS: PCP Family Medicine; Visit Provider Physician Assistant ==

== ENCOUNTER 2023-07-10 09:07 | Outpatient (AMB) | payer MEDICARE, MEDICAID, SELFPAY ==
--- NOTE | 2023-07-10 09:21 | A.OFFVIS_ITS ---
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 Complaints include pain over varicosities, swelling of lower extremities, cramping, fatigue, and heaviness of the lower extremities. It has been affecting there daily activities including walking. It is noted more so in right leg. Of note she has recently undergone right knee surgery by Dr. Lopez on 06/22/2023 Patient denies any previous venous surgery or injections. Patient denies any history of DVT/ PE. Patient denies any history of phlebitis. Trial of compression includes - [id number] They now present for vascular evaluation regarding their varicose veins. [facility] Medical History IBS (irritable bowel syndrome) Lymphoma Diverticulitis Diverticulosis Hypothyroid Tubal ligation evaluation GERD (gastroesophageal reflux disease) Aberrant thyroid gland Asthma B12 deficiency anemia Pulmonary embolism Primary osteoarthritis of knees, bilateral Breast cancer, left breast Surgical History History of endoscopy Hx of nasal septoplasty Hx of lithotripsy History of lumpectomy of left breast Hx of cholecystectomy History of esophagogastroduodenoscopy (EGD) H/O colonoscopy Hx of lymph node biopsy History of bone marrow biopsy History of removal of Port-a-Cath History of vocal cord polypectomy Hx of rotator cuff surgery Hx of carpal tunnel repair Family History Mother Family hx of colon cancer Arthritis Father Hx of kidney disease Brother History of throat cancer Daughter Arthritis Sister Arthritis Social History Household Members: None Housing: Condominium Are you a primary director long term care to a significant other at home: No Do you presently have visiting nurse or other home services: Yes ([employer]) Alcohol intake: never Patient Tobacco Use Status: Former Tobacco user Second Hand Smoke Exposure: No service: No Current occupational status: disabled Sexual orientation: Straight/Heterosexual Gender identity: Female Female Reproductive History Menstrual Age of Menarche: 9 Review of Systems Const Reports as per HPI ENT Reports no additional complaints Card Denies chest pain, Denies chest pain at rest and Denies chest pain with activity Resp Denies chest congestion and Denies cough GI Reports no additional complaints Musc Details: pain over varicosities, aching of lower extremities, swelling, cramping, heaviness and tiredness, itching Denies abnormal gait Skin/Breast Reports pruritus and Denies wounds Neuro Reports no additional complaints and Denies abnormal gait Psych Denies no additional complaints Physical Exam Vital Signs: BMI result Body Mass Index 31.6 Const General: cooperative, healthy appearing and comfortable Orientation/consciousness: oriented to person, oriented to place and oriented to time Neck Carotids: no bruits Chest Chest palpation & inspection: normal inspection of the chest and normal palpation of entire chest wall Resp Effort & Inspection: normal respiratory effort and able to speak in complete sentences Cardio Rate: regular rate Heart sounds: S1 normal heart sound present and S2 normal heart sound present Peripheral pulses: Peripheral pulses 2+ throughout GI Inspection: Yes normal to inspection Skin Other: +2 edema, bilateral spider telangiectasias CEAP Classification C4 - skin color changes Ep - Etiology Primary As - superficial veins P - reflux General skin exam: dry skin Neuro General: oriented to person, oriented to place and oriented to time Extrem Right lower extremity: full ROM, normal capillary refill and edema Left lower extremity: full ROM, normal capillary refill and edema Psych Mental Status: mental status grossly normal Assessment & Plan Assessment & Plan (1) Varicose veins of right lower extremity with inflammation: Code(s): I83.11 - Varicose veins of right lower extremity with inflammation Plan: In short, the patient has evidence of venous insufficiency. I have discussed the pathophysiology with the patient. In addition I have provided informational material regarding venous disease to the patient. We have discussed conservative measures including compression, elevation, and exercise. I have also provided a handout regarding appropriate use of compression stockings and where to purchase good compression stockings as well. I have taken the liberty of ordering venous insufficiency testing with the patient. They will follow up with me after testing. The patient had an opportunity to ask questions regarding the treatment plan. All questions were answered. Imaging studies, laboratory studies and physical exam results were discussed and reviewed in detail. No major barriers to understanding were identified. The patient expressed understanding and agreement with the above treatment plan. The patient is aware they should contact our office by phone for worsening of the current condition or the appearance of new symptoms. Thank you for allowing me to participate in the vascular care of this patient. If you have any questions or concerns regarding the treatment for the above condition please do not hesitate to contact me. The office telephone contact is [phone]. This note is constructed using voice recognition software. While every effort has been made to ensure accuracy, instrumentation engineering technician errors may have been included. Thank you for allowing me to participate in the care of your patient. Yours sincerely, Obinna Kothari MD, FACS, R.P.V.I. Orders: Orders US venous duplex LE BI 1 Week I83.11 - Varicose veins of right lower extremity with inflammation Coding Level of Care Code New Pt Level 4 (68821) Diagnoses Varicose veins of right lower extremity with inflammation I83.11
[2023-07-10 09:24] VITALS: BMI 31.6
== END 2023-07-10 10:01 | disposition home or self-care (01) ==
PROVIDERS: PCP Family Medicine; Visit Provider Surgery Vascular Surgery
DX: I83.11 Varicose veins of right lower extremity with inflammation (principal)
CPT/HCPCS: 99203

== ENCOUNTER → 2023-07-10 09:07 | Outpatient (BNVA) | payer MEDICARE, MEDICAID, SELFPAY | PROVIDERS: PCP Family Medicine; Visit Provider Surgery Vascular Surgery | DX: I83.11 Varicose veins of right lower extremity with inflammation (principal) | CPT/HCPCS: 99202 ==

== ENCOUNTER 2023-08-02 08:05 | Outpatient (AMB) | payer MEDICARE, MEDICAID, SELFPAY ==
--- NOTE | 2023-08-02 08:08 | MHC.OFFVIS ---
Intake Vital Signs 08/02/23 08:12 Height 5 ft 2 in Weight 173 lb BMI 31.6 Intake Visit Reasons: PO- Lt Knee 06/22/23 Intake Note: Anisha akbar 72 year old female presents today for a post operative Right knee , DOS 06/22/23 The patient reports mild intermittent discomfort in her right knee. She denies any fevers or chills. She does walk with a cane when she is out of her home. She takes Tylenol as needed for her discomfort. Allergies aspirin [ASPIRIN] Allergy (Intermediate, Verified 08/02/23 08:12) RASH Penicillins [PENICILLINS] Allergy (Intermediate, Verified 08/02/23 08:12) HIVES, BLACK SPOTS Medication List - Last Reconciled 08/02/23 by Carlo Mitchell MD acetaminophen-codeine 300-30 mg 1 tab PO Q6H PRN albuterol sulfate 90 mcg/actuation 2 puffs inhalation Q4-6H PRN ascorbic acid (vitamin C) (Vitamin C) 1 g PO Q6H cholecalciferol (vitamin D3) 25 mcg PO DAILY cyanocobalamin (vitamin B-12) 1,000 mcg IM [id number] dicyclomine 2 caps PO Q6H PRN levothyroxine 88 mcg PO DAILY Magic Mouthwash Diphen/Lido/Antacid 1:1:1 10 mL PO QID meclizine 1 tab PO TID PRN montelukast 10 mg PO DAILY pantoprazole 40 mg PO DAILY simethicone 250 mg PO BID PRN PFSH Medical History IBS (irritable bowel syndrome) Lymphoma Diverticulitis Diverticulosis Hypothyroid Tubal ligation evaluation GERD (gastroesophageal reflux disease) Aberrant thyroid gland Asthma B12 deficiency anemia Pulmonary embolism Primary osteoarthritis of knees, bilateral Breast cancer, left breast Surgical History History of endoscopy Hx of nasal septoplasty Hx of lithotripsy History of lumpectomy of left breast Hx of cholecystectomy History of esophagogastroduodenoscopy (EGD) H/O colonoscopy Hx of lymph node biopsy History of bone marrow biopsy History of removal of Port-a-Cath History of vocal cord polypectomy Hx of rotator cuff surgery Hx of carpal tunnel repair Family History Mother Family hx of colon cancer Arthritis Father Hx of kidney disease Brother History of throat cancer Daughter Arthritis Sister Arthritis Social History Household Members: None Housing: Condominium Are you a primary personal care worker to a significant other at home: No 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) Alcohol intake: never Patient Tobacco Use Status: Former Tobacco user Second Hand Smoke Exposure: No service: No Current occupational status: disabled Sexual orientation: Straight/Heterosexual Gender identity: Female Female Reproductive History Menstrual Age of Menarche: 9 Physical Exam Vital Signs: BMI result Body Mass Index 31.6 Extrem Other: Right knee examination shows that the surgical incisions are well healed, no erythema, minimal crepitus with range of motion, minimal discomfort with range of motion Assessment & Plan Assessment & Plan (1) H/O meniscectomy of right knee: Code(s): Z98.890 - Other specified postprocedural states Plan Ms. Esposito is doing well after undergoing right knee arthroscopic surgery on 06/22/2023. The patient will continue with her activities as tolerated. She will continue taking Tylenol as needed for discomfort. She will contact me prior to her follow-up appointment in 3 months should her symptoms worsen in any way. Feel free to call me at any time should questions regarding her orthopedic management arise. Coding Level of Care Code Global (83676) Diagnoses H/O meniscectomy of right knee Z98.890
[2023-08-02 08:12] VITALS: BMI 31.6
== END 2023-08-02 08:27 | disposition home or self-care (01) ==
PROVIDERS: PCP Family Medicine; Visit Provider Orthopaedic Surgery
DX: Z98.890 Other specified postprocedural states (principal)
CPT/HCPCS: 99024

== ENCOUNTER → 2023-08-02 08:05 | Outpatient (BNVA) | payer MEDICARE, MEDICAID, SELFPAY | PROVIDERS: PCP Family Medicine; Visit Provider Orthopaedic Surgery | DX: Z47.89 Encounter for other orthopedic aftercare (principal); Z98.890 Other specified postprocedural states | CPT/HCPCS: 99212 ==

== ENCOUNTER 2023-08-07 09:33 | Outpatient (REF) | payer MEDICARE, MEDICAID, SELFPAY ==
[2023-08-07 11:18] LABS: MANUAL DIFF FLAG NO
[2023-08-07 11:21] LABS: Basophils Percent Auto 0.6 % (0-2); Eosinophils Absolute Auto 0.1 X10*3/uL (0.0-0.4); Eosinophils Percent Auto 1.5 % (0-4); Hematocrit 33.6 % (37.0-47.0); Hemoglobin 10.5 g/dl (12.0-16.0); Imm Gran Abs Auto 0.01 X10*3/uL (0.00-0.03); Imm Gran Pct Auto 0.2 % (0.0-0.4); Lymphocytes Absolute Auto 1.4 X10*3/uL (1.2-4.9); Lymphocytes Percent Auto 26.2 % (20-40); Mean Corpuscular HGB Conc 31.3 g/dl (31.0-35.0); Mean Corpuscular Hemoglobin 28.2 pg (27.0-33.0); Mean Corpuscular Volume 90.3 fL (80.0-98.0); Monocytes Absolute Auto 0.6 X10*3/uL (0.1-1.2); Monocytes Percent Auto 10.8 % (2-11); Neutrophils Absolute Auto 3.3 x10*3/uL (2.0-8.3); Neutrophils Percent Auto 60.7 % (45-73); Platelet Count 183 X10*3/uL (160-400); Red Blood Count 3.72 X10*6/uL (4.20-5.50); Red Cell Distribution Width 14.2 % (11.0-16.0); White Blood Count 5.4 X10*3/uL (4.8-10.8)
[2023-08-07 11:54] LABS: Alanine Aminotransferase 20 U/L (0-31); Albumin Level 4.1 g/dL (3.5-5.0); Alkaline Phosphatase 116 U/L (39-117); Anion Gap 10 (12-20); Aspartate Amino Transferase 24 U/L (5-31); Bilirubin Total 0.3 mg/dL (0.0-1.0); Blood Urea Nitrogen 11 mg/dL (9-16); Calcium 9.9 mg/dL (8.4-10.2); Carbon Dioxide 25 mmol/L (22-29); Chloride 110 mmol/L (96-108); Estimated Glomerular Filt Rate > 60; Glucose Random 95 mg/dL (60-115); Iron 66 mcg/dL (30-160); Percent Iron Saturation 22 % (15-50); Potassium 4.2 mmol/L (3.3-5.1); Sodium 141 mmol/L (135-145); Total Iron Binding Capacity 294 mcg/dL (228-428); Total Protein 7.7 g/dL (6.5-8.0); Unsaturated Iron Binding 228 ug/dL
[2023-08-07 12:10] LABS: Ferritin 56 ng/mL (10-250); TSH reflex Free T4 0.45 uIU/mL (0.32-4.0); Vitamin D 25-OH Total 46.4 ng/mL (>30)
[2023-08-07 13:32] LABS: Folate 5.1 ng/mL (> or = 4.0); Vitamin B12 1128 pg/mL (200-900)
== END 2023-08-07 09:34 | disposition home or self-care (01) ==
LOC: HO.HHCL 09:33
PROVIDERS: Visit Provider Family Medicine
DX: D51.0 Vitamin B12 deficiency anemia due to intrinsic factor deficiency (principal); E03.9 Hypothyroidism, unspecified; E55.9 Vitamin D deficiency, unspecified
CPT/HCPCS: 36415; 80053; 82306; 82607; 82728; 82746; 83540; 84443; 85025

== ENCOUNTER 2023-09-27 10:15 | Emergency (ER) | payer MEDICARE, MEDICAID, SELFPAY ==
[2023-09-27 10:43] VITALS: BP 145/69; PULSE 73; RESP 16; TEMP 36.6; O2SAT 98; BMI 29.9
[2023-09-27 10:56] LABS: MANUAL DIFF FLAG NO
[2023-09-27 11:03] LABS: Basophils Percent Auto 0.4 % (0-2); Eosinophils Percent Auto 0.7 % (0-4); Hematocrit 34.7 % (37.0-47.0); Hemoglobin 11.1 g/dl (12.0-16.0); Imm Gran Abs Auto 0.01 X10*3/uL (0.00-0.03); Imm Gran Pct Auto 0.2 % (0.0-0.4); Lymphocytes Absolute Auto 1.4 X10*3/uL (1.2-4.9); Lymphocytes Percent Auto 30.2 % (20-40); Mean Corpuscular Volume 87.4 fL (80.0-98.0); Monocytes Absolute Auto 0.6 X10*3/uL (0.1-1.2); Monocytes Percent Auto 12.3 % (2-11); Neutrophils Absolute Auto 2.5 x10*3/uL (2.0-8.3); Neutrophils Percent Auto 56.2 % (45-73); Platelet Count 166 X10*3/uL (160-400); Red Blood Count 3.97 X10*6/uL (4.20-5.50); White Blood Count 4.5 X10*3/uL (4.8-10.8)
[2023-09-27 11:14] LABS: Appearance Urine Clear; Color Urine Yellow; Glucose Urine UA Negative (Negative); Leukocyte Esterase Urine Large (3+) (Negative); Nitrite Urine Negative (Negative); UMIC TRIGGER UACC YES; Urine Blood Negative (Negative); Urine Ketones Negative (Negative); Urine Protein Negative (Neg-Trace)
[2023-09-27 11:15] LABS: Alanine Aminotransferase 16 U/L (0-31); Albumin Level 4.4 g/dL (3.5-5.0); Alkaline Phosphatase 135 U/L (39-117); Anion Gap 12 (12-20); Aspartate Amino Transferase 20 U/L (5-31); Bilirubin Total 0.3 mg/dL (0.0-1.0); Blood Urea Nitrogen 11 mg/dL (9-16); Calcium 10.1 mg/dL (8.4-10.2); Carbon Dioxide 26 mmol/L (22-29); Chloride 106 mmol/L (96-108); Creatinine Clr Calc Pharmacy 74.9; Estimated Glomerular Filt Rate > 60; Glucose Random 96 mg/dL (60-115); Potassium 4.2 mmol/L (3.3-5.1); Sodium 140 mmol/L (135-145)
[2023-09-27 11:17] LABS: Bacteria Urine None Seen (None Seen); Hyaline Casts Urine 0-2 /LPF (0-2); RBC Urine 0-2 /HPF (0-2); Squamous Epithelial Cell Urine 0-2 /HPF (0-2); UACC Culture Trigger YES
== END 2023-09-27 22:02 | disposition left against medical advice (07) ==
PROVIDERS: Emergency Provider Emergency Medicine; PCP Family Medicine
DX: R10.10 Upper abdominal pain, unspecified (principal); M54.50 Low back pain, unspecified; Z79.899 Other long term (current) drug therapy
CPT/HCPCS: 36415; 80053; 81001; 85025; 87086; 99282; 99283

== ENCOUNTER 2023-09-28 08:16 | Outpatient (REF) | payer MEDICARE, MEDICAID, SELFPAY ==
--- NOTE | ~2023-09-28 | MM_ITS ---
EXAMINATION: MM SCREENING DIGITAL BREAST TOMOSYNTHESIS, BILATERAL CLINICAL INFORMATION: Screening. Asymptomatic. The patient is status post surgery in 2011 for left lobular carcinoma in situ. COMPARISON: Mammography: This study is compared with prior exams dating back to 2019. TECHNIQUE: Digital breast tomosynthesis is performed in both the craniocaudal and mediolateral oblique views along with computer-aided detection (CAD). Synthesized 2D images are generated from the tomosynthesis. FINDINGS: There are scattered areas of fibroglandular density (ACR BI-RADS breast composition Category b). There are no significant masses, abnormal calcifications, or other abnormalities. There are minor architectural changes in the upper outer quadrant of the left breast. There is a tissue marker in the upper outer quadrant of the left breast. MM/MM tomosynthesis screening BI IMPRESSION: No mammographic evidence of malignancy. ASSESSMENT: BI-RADS BI-RADS 2 - Benign Findings RECOMMENDATION: Routine annual mammography screening. 1 year F/U This examination should not preclude the clinical evaluation of a suspicious palpable abnormality. This patient's information was entered into a reminder system with a target due date for their next mammogram.
[2023-09-28 18:23] LABS: Appearance Urine Clear; Color Urine Yellow; Glucose Urine UA Negative (Negative); Leukocyte Esterase Urine Small (1+) (Negative); Nitrite Urine Negative (Negative); UMIC TRIGGER UACC YES; Urine Blood Negative (Negative); Urine Ketones Negative (Negative); Urine Protein Negative (Neg-Trace)
[2023-09-28 18:32] LABS: Bacteria Urine None Seen (None Seen); Hyaline Casts Urine 0-2 /LPF (0-2); RBC Urine 0-2 /HPF (0-2); Squamous Epithelial Cell Urine 0-2 /HPF (0-2); UACC Culture Trigger YES; WBC Urine 0-5 /HPF (0-5)
== END 2023-09-28 08:17 | disposition home or self-care (01) ==
LOC: HO.MAMMO 08:16
PROVIDERS: Internal Medicine Geriatric Medicine; PCP Family Medicine; Visit Provider Family Medicine
DX: Z12.31 Encounter for screening mammogram for malignant neoplasm of breast (principal); R10.30 Lower abdominal pain, unspecified
CPT/HCPCS: 77063; 77067; 81001

== ENCOUNTER → 2023-09-28 09:00 | Outpatient (BNV) | payer MEDICARE, MEDICAID, SELFPAY | PROVIDERS: PCP Family Medicine; Visit Provider Radiology Diagnostic Radiology | DX: Z12.31 Encounter for screening mammogram for malignant neoplasm of breast (principal) | CPT/HCPCS: 77063; 77067 ==

== ENCOUNTER 2023-10-03 23:56 | Emergency (ER) | payer MEDICARE, MEDICAID, SELFPAY ==
--- NOTE | ~2023-10-03 | XR_ITS ---
EXAMINATION: XR ABDOMEN KUB CLINICAL INDICATION: Left upper quadrant discomfort, question constipation COMPARISON: 06/01/2023 TECHNIQUE: AP view of the abdomen. FINDINGS: Bowel gas pattern is nonobstructive. There is limited assessment for free air with supine positioning. Moderate amount of stool is present in the colon. Clips are present in the right upper quadrant. Redemonstrated calcifications in the lower pelvis, statistically favored to represent phleboliths. Included lung bases are well aerated. No acute osseous findings are seen. XR/XR KUB IMPRESSION: Moderate volume of stool. Nonobstructive bowel gas pattern.
[2023-10-04 00:18] VITALS: BP 155/74; PULSE 82; RESP 17; TEMP 36.6; O2SAT 98; BMI 29.9
[2023-10-04 00:43] VITALS: BP 139/64; PULSE 79; RESP 14; TEMP 36.4; O2SAT 98
--- NOTE | 2023-10-04 00:54 | ED_ITS ---
HPI - Abdominal Pain General Chief Complaint: Abdominal Pain Stated Complaint: Abd pain/Back pain Time Seen by Provider: 10/04/23 00:53 Source: patient Mode of arrival: ambulatory History of Present Illness HPI narrative: 72-year-old female with presentation for 9 days of left-sided abdominal discomfort that has not been associated with any fever, chills, nausea, vomiting and denies any dysuria. Patient was seen at her primary care doctor's office and empirically treated for urinary tract infection with ciprofloxacin. Patient does report that she has had decrease in bowel movement pattern. Related Data Home Medications Medication Instructions Recorded Confirmed albuterol sulfate 90 mcg/actuation 2 puff inhalation Q4-6H PRN 05/03/20 08/02/23 aerosol inhaler Shortness Of Breath levothyroxine 88 mcg tablet 88 mcg PO DAILY 05/03/20 08/02/23 montelukast 10 mg tablet 10 mg PO DAILY 05/03/20 08/02/23 pantoprazole 40 mg tablet,delayed 40 mg PO DAILY 05/03/20 08/02/23 release cholecalciferol (vitamin D3) 25 25 mcg PO DAILY 05/14/20 08/02/23 mcg (1,000 unit) capsule cyanocobalamin (vitamin B-12) 1,000 mcg IM [id number] 05/14/20 08/02/23 1,000 mcg/mL injection solution ascorbic acid (vitamin C) 1,000 mg 1 g PO Q6H 11/11/20 08/02/23 tablet (Vitamin C) simethicone 125 mg tablet 250 mg PO BID PRN Gastrointestinal 11/11/20 08/02/23 Spasms Or Cramping meclizine 25 mg tablet 1 tab PO TID PRN Dizziness 12/12/21 08/02/23 dicyclomine 10 mg capsule 2 cap PO Q6H PRN Gastrointestinal 03/07/22 08/02/23 Spasms Or Cramping Previous Rx's Medication Instructions Recorded acetaminophen 300 mg-codeine 30 mg 1 tab PO Q6H PRN pain #20 tabs 06/22/23 tablet Magic Mouthwash 10 ml PO QID #240 mL 09/17/23 Diphen/Lido/Antacid 1:1:1 240 mL suspension Allergies Allergy/AdvReac Type Severity Reaction Status Date / Time aspirin [ASPIRIN] Allergy Intermediate RASH Verified 10/04/23 00:18 Penicillins [PENICILLINS] Allergy Intermediate HIVES, BLACK Verified 10/04/23 00:18 SPOTS Review of Systems Review of Systems Pertinent positives and negatives as stated in HPI [facility] Past Medical History Source: nursing notes reviewed Medical History IBS (irritable bowel syndrome) Lymphoma Diverticulitis Diverticulosis Hypothyroid Tubal ligation evaluation GERD (gastroesophageal reflux disease) Aberrant thyroid gland Asthma B12 deficiency anemia Pulmonary embolism Primary osteoarthritis of knees, bilateral Breast cancer, left breast Surgical History History of endoscopy Hx of nasal septoplasty Hx of lithotripsy History of lumpectomy of left breast Hx of cholecystectomy History of esophagogastroduodenoscopy (EGD) H/O colonoscopy Hx of lymph node biopsy History of bone marrow biopsy History of removal of Port-a-Cath History of vocal cord polypectomy Hx of rotator cuff surgery Hx of carpal tunnel repair Family History Family History Mother Family hx of colon cancer Arthritis Father Hx of kidney disease Brother History of throat cancer Daughter Arthritis Sister Arthritis Social History Social History Household Members: None Housing: Condominium Are you a primary child care center administrator to a significant other at home: No Do you 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 GENERAL: Well developed, well nourished, in no acute distress. HEAD: Normocephalic/atraumatic EYES: PERRLA, EOMI EARS: Ext canals without abnormality NOSE: Nares patent bilateral OROPHARYNX: no oral lesions noted, posterior pharynx clear NECK: Supple, no adenopathy LUNGS: Normal breath sounds. No adventitious sounds or accessory muscle use. SpO2<98> CARDIOVASCULAR: Regular rate and rhythm without noted murmurs ABDOMEN: Soft, left-sided abdominal discomfort without rebound, non-distended with bowel sounds. MUSCULOSKELETAL: No tenderness, deformities, or effusions noted on gross inspection. EXTREMITIES: No cyanosis, clubbing or edema. SKIN: Inspection of the skin reveals no rashes NEUROLOGIC: Alert and oriented x 4. Strength and sensation to light touch were grossly intact x 4. Medical Decision Making Medical Decision Making [facility] Narrative: 72-year-old female with history and clinical presentation, DDX: Duration not consistent with a diverticulitis as patient is afebrile, no symptoms consistent with obstruction, will rule out constipation. I reviewed all investigations and hematologic indices are chronically stable with a mild leukopenia as well as normocytic anemia and thrombocytopenia. Chemistry indices not significant for TRINIDAD or electrolyte/liver enzyme derangements. Lipase is within normal limits. Urinalysis not consistent with UTI or hematuria and KUB demonstrates moderate stool burden but otherwise normal bowel gas pattern. My interpretation is that patient is suffering from moderate constipation and will receive a dose of MiraLax here in the emergency room at her request. I otherwise discussed a regimen for her to follow and also encouraged her to follow-up with her primary care doctor. Differential Diagnosis Differential Diagnoses: The differential diagnosis associated with the presentation includes Please see the discussion above Admission/Observation Consideration of admission/observation: Escalation of care including admission/observation considered Please see the discussion above Lab Data [facility] Lab Attestation statement: I reviewed the patient's lab results. Please see the discussion above 10/04/23 00:49 10/04/23 00:49 Labs: Lab Results 10/04/23 10/04/23 Range/Units 00:46 00:49 WBC 4.0 L (4.8-10.8) X10*3/uL RBC 3.67 L (4.20-5.50) X10*6/uL Hgb 10.3 L (12.0-16.0) g/dl Hct 31.8 L (37.0-47.0) % MCV 86.6 (80.0-98.0) fL MCH 28.1 (27.0-33.0) pg MCHC 32.4 (31.0-35.0) g/dl RDW 14.3 (11.0-16.0) % Plt Count 159 L (160-400) X10*3/uL MPV 10.8 (9.4-12.3) fL Immature Gran % (Auto) 0.3 (0.0-0.4) % Neut % (Auto) 54.7 (45-73) % Lymph % (Auto) 31.6 (20-40) % [place] % (Auto) 11.6 H (2-11) % Eos % (Auto) 1.3 (0-4) % Baso % (Auto) 0.5 (0-2) % Lymph # (Auto) 1.3 (1.2-4.9) X10*3/uL [place] # (Auto) 0.5 (0.1-1.2) X10*3/uL Eos # (Auto) 0.1 (0.0-0.4) X10*3/uL Baso # (Auto) 0.0 (0.0-0.2) X10*3/uL Abs Immat Gran (auto) 0.01 (0.00-0.03) X10*3/uL Absolute Neuts (auto) 2.2 (2.0-8.3) x10*3/uL Absolute Nucleated RBC 0.000 (0.0-0.012) X10*3/uL Nucleated RBC % (auto) 0.0 (0.0-0.2) /100WBC Sodium 141 (135-145) mmol/L Potassium 3.6 (3.3-5.1) mmol/L Chloride 110 H (96-108) mmol/L Carbon Dioxide 24 (22-29) mmol/L Anion Gap 11 L (12-20) BUN 12 (9-16) mg/dL Creatinine 0.79 (0.5-1.4) mg/dL Estim Creat Clear Calc 64.4 Estimated GFR > 60 Random Glucose 94 (60-115) mg/dL Calcium 9.8 (8.4-10.2) mg/dL Total Bilirubin 0.2 (0.0-1.0) mg/dL AST 20 (5-31) U/L ALT 20 (0-31) U/L Alkaline Phosphatase 132 H (39-117) U/L Total Protein 7.3 (6.5-8.0) g/dL Albumin 4.1 (3.5-5.0) g/dL Lipase 75 (8-78) U/L Urine Color Yellow Urine Appearance Clear Urine pH 6.0 (5.0-9.0) Ur Specific [place] 1.020 (1.005-1.025) Urine Protein Negative (Neg-Trace) mg/dL Urine Glucose (UA) Negative (Negative) mg/dL Urine Ketones Negative (Negative) mg/dL Urine Blood Negative (Negative) Urine Nitrite Negative (Negative) Ur Leukocyte Esterase Small (1+) H (Negative) Urine RBC 0-2 (0-2) /HPF Urine WBC 0-5 (0-5) /HPF Ur Squamous Epith Cells 0-2 (0-2) /HPF Urine Bacteria None Seen (None Seen) Hyaline Casts 0-2 (0-2) /LPF Radiology Impression Discussion of test interpretation with radiology: I have reviewed the radiologist's reading. Radiologist Impression: Please see the discussion above External Record Review External record reviewed: Outpatient record, Prior outpatient labs and Prior outpatient radiology Critical Care Time Critical Care Time Critical Care Time: Yes Total Critical Care Time: 30 Attestation: I personally attest to this time spent taking care of the patient. Discharge Plan Discharge Clinical Impression: Abdominal discomfort in left upper quadrant, Constipation Patient Disposition: Home, Self-Care Instructions: Abdominal Pain (ED), Constipation (ED), High Fiber Diet (ED) Additional Instructions: 1. Resume all home medications as prescribed. 2. Recommend increasing water intake in the use of [id number] MiraLax daily, initially until you began having regular soft bowel movements. 3. Please follow-up with your primary care doctor 1st thing in the morning to set up an appointment for re-evaluation and further outpatient management. Return to the ER for any worsening symptoms. Prescriptions: No Action ascorbic acid (vitamin C) [Vitamin C] 1,000 mg Tablet 1 g PO Q6H simethicone 125 mg Tablet 250 mg PO BID PRN (Reason: Gastrointestinal Spasms Or Cramping) meclizine 25 mg tablet 1 tab PO TID PRN (Reason: Dizziness) Magic Mouthwash Diphen/Lido/Antacid 1:1:1 240 mL Suspension 10 ml PO QID Qty: 240 6RF Rx Instructions: Lidocaine Viscous 2 % 80mL; diphenhydramine 12.5 mg/5 mL 80mL; aluminum-mag hydrox-simeth [id number]/5mL 80mL dicyclomine 10 mg capsule 2 cap PO Q6H PRN (Reason: Gastrointestinal Spasms Or Cramping) acetaminophen-codeine 300-30 mg tablet 1 tab PO Q6H PRN (Reason: pain) Qty: 20 0RF montelukast 10 mg tablet 10 mg PO DAILY pantoprazole 40 mg tablet,delayed release (DR/EC) 40 mg PO DAILY levothyroxine 88 mcg tablet 88 mcg PO DAILY albuterol sulfate 90 mcg/actuation HFA aerosol inhaler 2 puff inhalation Q4-6H PRN (Reason: Shortness Of Breath) cholecalciferol (vitamin D3) 25 mcg (1,000 unit) capsule 25 mcg PO DAILY cyanocobalamin (vitamin B-12) 1,000 mcg/mL solution 1,000 mcg IM [id number] Referrals: Sandy Rubi MD [Primary Care Provider] -
[2023-10-04 00:55] LABS: MANUAL DIFF FLAG NO
[2023-10-04 00:57] LABS: Basophils Percent Auto 0.5 % (0-2); Eosinophils Absolute Auto 0.1 X10*3/uL (0.0-0.4); Eosinophils Percent Auto 1.3 % (0-4); Hematocrit 31.8 % (37.0-47.0); Hemoglobin 10.3 g/dl (12.0-16.0); Imm Gran Abs Auto 0.01 X10*3/uL (0.00-0.03); Imm Gran Pct Auto 0.3 % (0.0-0.4); Lymphocytes Absolute Auto 1.3 X10*3/uL (1.2-4.9); Lymphocytes Percent Auto 31.6 % (20-40); Mean Corpuscular HGB Conc 32.4 g/dl (31.0-35.0); Mean Corpuscular Hemoglobin 28.1 pg (27.0-33.0); Mean Corpuscular Volume 86.6 fL (80.0-98.0); Mean Platelet Volume 10.8 fL (9.4-12.3); Monocytes Absolute Auto 0.5 X10*3/uL (0.1-1.2); Monocytes Percent Auto 11.6 % (2-11); Neutrophils Absolute Auto 2.2 x10*3/uL (2.0-8.3); Neutrophils Percent Auto 54.7 % (45-73); Platelet Count 159 X10*3/uL (160-400); Red Blood Count 3.67 X10*6/uL (4.20-5.50); Red Cell Distribution Width 14.3 % (11.0-16.0)
[2023-10-04 00:57] LABS: Appearance Urine Clear; Color Urine Yellow; Glucose Urine UA Negative (Negative); Leukocyte Esterase Urine Small (1+) (Negative); Nitrite Urine Negative (Negative); UMIC TRIGGER UACC YES; Urine Blood Negative (Negative); Urine Ketones Negative (Negative); Urine Protein Negative (Neg-Trace)
[2023-10-04 01:08] LABS: Bacteria Urine None Seen (None Seen); Hyaline Casts Urine 0-2 /LPF (0-2); RBC Urine 0-2 /HPF (0-2); Squamous Epithelial Cell Urine 0-2 /HPF (0-2); UACC Culture Trigger YES; WBC Urine 0-5 /HPF (0-5)
[2023-10-04 01:13] LABS: Alanine Aminotransferase 20 U/L (0-31); Albumin Level 4.1 g/dL (3.5-5.0); Alkaline Phosphatase 132 U/L (39-117); Anion Gap 11 (12-20); Aspartate Amino Transferase 20 U/L (5-31); Bilirubin Total 0.2 mg/dL (0.0-1.0); Blood Urea Nitrogen 12 mg/dL (9-16); Calcium 9.8 mg/dL (8.4-10.2); Carbon Dioxide 24 mmol/L (22-29); Chloride 110 mmol/L (96-108); Creatinine Clr Calc Pharmacy 64.4; Estimated Glomerular Filt Rate > 60; Glucose Random 94 mg/dL (60-115); Lipase 75 U/L (8-78); Potassium 3.6 mmol/L (3.3-5.1); Sodium 141 mmol/L (135-145); Total Protein 7.3 g/dL (6.5-8.0)
[2023-10-04] MEDS: polyethylene glycoL 3350 17 GM POWD.PACK PO (03:09)
== END 2023-10-04 03:12 | disposition home or self-care (01) ==
PROVIDERS: Emergency Provider Student in an Organized Health Care Education/Training Program; PCP Family Medicine
DX: K59.00 Constipation, unspecified (principal); R10.32 Left lower quadrant pain; R10.12 Left upper quadrant pain; Z79.899 Other long term (current) drug therapy
CPT/HCPCS: 36415; 74018; 80053; 81001; 83690; 85025; 87086; 99283; 99284

== ENCOUNTER 2023-10-31 09:59 | Outpatient (REF) | payer MEDICARE, MEDICAID, SELFPAY ==
--- NOTE | ~2023-10-31 | US_ITS ---
EXAMINATION: US LOWER EXTREMITY VENOUS (REFLUX EXAM), BILATERAL CLINICAL INDICATION: Chronic venous insufficiency with lower extremity varicose veins, pain COMPARISON: None. TECHNIQUE: Color flow triplex imaging and compression Doppler was performed to evaluate both the deep and the superficial systems bilaterally. To evaluate the superficial system, the examination was performed in the upright position. Color-flow Doppler ultrasound and compression ultrasound were utilized. In addition, maneuvers were utilized to demonstrate reflux. FINDINGS: 1. DEEP VENOUS ULTRASOUND OF THE RIGHT LOWER EXTREMITY: Common Femoral Vein: Compressible, normal respiratory variation and augmented flow. Femoral Vein: Compressible, normal color flow and augmentation. Popliteal Vein: Compressible, normal augmentation. Deep Reflux: There is no evidence of reflux in the deep system in either the common femoral vein, superficial femoral or the popliteal vein. There is no evidence of a Pedraza's cyst. 2. SUPERFICIAL ULTRASOUND WITH DOPPLER OF RIGHT LOWER EXTREMITY: GREAT SAPHENOUS VEIN: Saphenofemoral Junction: 0.6 cm; Reflux: 0 ms Proximal Thigh: 0.5 cm; Reflux: 0 ms Mid Thigh: 0.2 cm; Reflux: 0 ms Above Knee: 0.2 cm; Reflux: 0 ms At Knee: 0.1 cm; Reflux: 0 ms Below Knee: 0.1 cm; Reflux: 0 ms Mid Calf: 0.1 cm; Reflux: 0 ms Ankle: 0.1 cm; Reflux: 0 ms, wall calcification present DUPLICATED MEDIAL GREAT SAPHENOUS VEIN: Diameter: None imaged Reflux: NA DUPLICATED LATERAL GREAT SAPHENOUS VEIN: Diameter: 0.1 cm Reflux: None SMALL SAPHENOUS VEIN: Scattered wall calcifications present. Saphenopopliteal Junction: 0.4 cm; Reflux: 0 ms Proximal: 0.3 cm; Reflux: 0 ms Distal: 0.1 cm; Reflux: 0 ms VEIN OF GIACOMINI: Size: NA Reflux: NA PERFORATORS: Location: None imaged Size: NA Reflux: NA VARICOSITIES: Location: None imaged Size: NA Reflux: NA 3. DEEP VENOUS ULTRASOUND OF THE LEFT LOWER EXTREMITY: Common Femoral Vein: Compressible, normal respiratory variation and augmented flow. Femoral Vein: Compressible, normal color flow and augmentation. Popliteal Vein: Compressible, normal augmentation. Deep Reflux: There is no evidence of reflux in the deep system in either the common femoral vein, superficial femoral or the popliteal vein. There is no evidence of a Pedraza's cyst. 4. SUPERFICIAL ULTRASOUND WITH DOPPLER OF LEFT LOWER EXTREMITY: GREAT SAPHENOUS VEIN: Saphenofemoral Junction: 0.6 cm; Reflux: 0 ms Proximal Thigh: 0.3 cm; Reflux: 0 ms Mid Thigh: 0.2 cm; Reflux: 2472 ms Above Knee: 0.2 cm; Reflux: 0 ms At Knee: 0.2 cm; Reflux: 0 ms Below Knee: 0.1 cm; Reflux: 868 ms, wall calcification present Mid Calf: 0.2 cm; Reflux: 0 ms Ankle: 0.1 cm; Reflux: 0 ms DUPLICATED MEDIAL GREAT SAPHENOUS VEIN: Diameter: 0.2 cm Reflux: None DUPLICATED LATERAL GREAT SAPHENOUS VEIN: Diameter: None imaged Reflux: NA SMALL SAPHENOUS VEIN: Saphenopopliteal Junction: 0.3 cm; Reflux: 0 ms Proximal: 0.1 cm; Reflux: 0 ms Distal: 0.1 cm; Reflux: 0 ms VEIN OF GIACOMINI: Size: NA Reflux: NA PERFORATORS: Location: None significant Size: NA Reflux: NA VARICOSITIES: Location: None significant Size: NA Reflux: NA US/US venous duplex LE BI IMPRESSION: Right: No significant venous insufficiency or reflux in the great saphenous vein or small saphenous vein. Scattered areas of wall calcification within the small saphenous vein and distal great saphenous vein consistent with prior thrombophlebitis. Left: Segmental areas of reflux within the great saphenous vein in the mid thigh and proximal calf. Wall calcification seen in the great saphenous vein in the proximal calf consistent with prior thrombophlebitis
== END 2023-10-31 10:00 | disposition home or self-care (01) ==
LOC: HO.US 09:59
PROVIDERS: PCP Family Medicine; Visit Provider Surgery Vascular Surgery
DX: I83.11 Varicose veins of right lower extremity with inflammation (principal)
CPT/HCPCS: 93970

== ENCOUNTER 2023-11-16 10:00 | Outpatient (REF) | payer MEDICARE, MEDICAID, SELFPAY ==
[2023-11-16 12:38] LABS: Estimated Average Glucose 117 mg/dL; Hemoglobin A1c % 5.7 % (<6.0)
[2023-11-16 13:27] LABS: Alanine Aminotransferase 18 U/L (0-31); Albumin Level 4.1 g/dL (3.5-5.0); Alkaline Phosphatase 133 U/L (39-117); Anion Gap 13 (12-20); Aspartate Amino Transferase 22 U/L (5-31); Bilirubin Total 0.3 mg/dL (0.0-1.0); Blood Urea Nitrogen 11 mg/dL (9-16); Calcium 9.8 mg/dL (8.4-10.2); Carbon Dioxide 24 mmol/L (22-29); Chloride 108 mmol/L (96-108); Cholesterol 131 mg/dL (<200); Estimated Glomerular Filt Rate > 60; Glucose Random 91 mg/dL (60-115); HDL Cholesterol 42 mg/dL (>40); LDL Cholesterol Calculated 74 mg/dL (<100); Sodium 141 mmol/L (135-145); Total Protein 7.7 g/dL (6.5-8.0); Triglycerides 76 mg/dL (<150)
[2023-11-16 13:28] LABS: TSH reflex Free T4 0.41 uIU/mL (0.32-4.0)
[2023-11-16 14:06] LABS: Reflex LDLD? No
== END 2023-11-16 10:01 | disposition home or self-care (01) ==
LOC: HO.HHCL 10:00
PROVIDERS: Visit Provider Family Medicine
DX: R03.0 Elevated blood-pressure reading, without diagnosis of hypertension (principal); E06.3 Autoimmune thyroiditis; E03.9 Hypothyroidism, unspecified; E83.19 Other disorders of iron metabolism
CPT/HCPCS: 36415; 80053; 80061; 83036; 84443

== ENCOUNTER 2023-12-05 10:00 | Outpatient (REF) | payer MEDICARE, MEDICAID, SELFPAY ==
--- NOTE | ~2023-12-05 | US_ITS ---
EXAMINATION: US COMPLETE ABDOMEN WITH LIVER ELASTOGRAPHY CLINICAL INFORMATION: Hepatic cirrhosis, without ascites. COMPARISON: None available. TECHNIQUE: Real-time imaging of the abdominal viscera. Noninvasive ultrasound liver fibrosis assessment is performed using Freida ElastPQ point quantification shear wave elastography (2D-SWE) with a C5-2 MHz transducer. Multiple elastography samples are obtained. FINDINGS: PANCREAS: Normal. The visualized pancreatic head and body are normal in appearance. The remainder of the pancreas is obscured from visualization by the overlying bowel gas. ABDOMINAL AORTA: The proximal, middle, and distal aortic segments are normal in caliber. INFERIOR VENA CAVA: Visualized portions are normal. LIVER: Normal. The liver demonstrates normal size, contour and echogenicity. No focal lesion or intrahepatic biliary duct dilatation. The right lobe measures 15.2 cm in length. The left lobe measures 13.8 cm in length. Portal flow is towards the liver (hepatopetal). Shear wave liver elastography median stiffness is 1.5 m/s (reference: normal median stiffness is 1.3 m/s or less). IQR/median stiffness to assess sampling precision is 0.19 (reference: good quality data set is IQR/median stiffness of 0.15 or less). GALLBLADDER: Normal. The gallbladder is physiologically distended without evidence of stones, sludge, polyps, wall thickening or pericholecystic fluid. COMMON BILE DUCT: Normal in caliber measuring 0.8 cm in diameter. RIGHT KIDNEY: Normal. No hydronephrosis. No renal calculi or focal parenchymal lesions. The kidney measures 9.8 cm in maximum dimension. LEFT KIDNEY: Normal. No hydronephrosis. No renal calculi or focal parenchymal lesions. The kidney measures 11.1 cm in maximum dimension. SPLEEN: Normal. The spleen measures 8 point cm in maximum dimension. FREE FLUID: None. US/US abdomen comp w elastography IMPRESSION: 1. There is generalized increase in hepatic echotexture, consistent with fatty infiltration or hepatocellular disease. Please correlate clinically. No focal hepatic mass or intrahepatic biliary dilatation is seen. 2. Liver elastography: Although measurements appear to rule out compensated advanced chronic liver disease, there is statistical variability of the sampling which decreases accuracy. REFERENCE: Society of Radiologists in Ultrasound Liver Stiffness Thresholds (2019): LIVER STIFFNESS THRESHOLDS: *Liver Stiffness equal or less than 1.3 m/s: High probability of being normal. *Liver Stiffness less than 1.7 m/s: In the absence of other known clinical signs, rules out compensated advanced chronic liver disease. *Liver Stiffness 1.7-2.1 m/s: Suggestive of compensated advanced chronic liver disease but need further test for confirmation. *Liver Stiffness over 2.1 m/s: Rules in compensated advanced chronic liver disease. *Liver Stiffness over 2.4 m/s: Suggestive of clinically significant portal hypertension. QUALITY OF DATA SET: *IQR/Median value equal or less than 0.15 implies a quality data set. *IQR/Median value over 0.15 implies a poor quality data set. SIGNIFICANT CHANGE FROM PRIOR EXAM: Significant change if liver stiffness measurement is 10% or greater from prior exam. OTHER CONSIDERATIONS: The stage of liver fibrosis may be overestimated in the setting of acute hepatitis, liver inflammation, elevated liver function tests, hepatic vascular congestion, obstructive cholestasis, non-fasting state, and infiltrative diseases such as amyloidosis and lymphoma. In some patients with NAFLD, the liver stiffness thresholds for compensated advanced chronic liver disease may be lower. In causes other than viral hepatitis and NAFLD, liver stiffness thresholds are not well established.
== END 2023-12-05 10:01 | disposition home or self-care (01) ==
LOC: HO.US 10:00
PROVIDERS: PCP Family Medicine; Visit Provider Internal Medicine
DX: K74.60 Unspecified cirrhosis of liver (principal)
CPT/HCPCS: 76700; 76981

== ENCOUNTER 2023-12-26 12:22 | Outpatient (REF) | payer MEDICARE, MEDICAID, SELFPAY ==
[2023-12-26 13:00] LABS: MANUAL DIFF FLAG NO
[2023-12-26 14:03] LABS: Basophils Percent Auto 0.4 % (0-2); Eosinophils Absolute Auto 0.1 X10*3/uL (0.0-0.4); Hematocrit 33.1 % (37.0-47.0); Hemoglobin 10.3 g/dl (12.0-16.0); Imm Gran Abs Auto 0.02 X10*3/uL (0.00-0.03); Imm Gran Pct Auto 0.4 % (0.0-0.4); Lymphocytes Absolute Auto 1.3 X10*3/uL (1.2-4.9); Lymphocytes Percent Auto 24.7 % (20-40); Mean Corpuscular HGB Conc 31.1 g/dl (31.0-35.0); Mean Corpuscular Hemoglobin 27.4 pg (27.0-33.0); Mean Platelet Volume 11.9 fL (9.4-12.3); Monocytes Absolute Auto 0.6 X10*3/uL (0.1-1.2); Monocytes Percent Auto 10.7 % (2-11); Neutrophils Absolute Auto 3.2 x10*3/uL (2.0-8.3); Neutrophils Percent Auto 62.8 % (45-73); Platelet Count 173 X10*3/uL (160-400); Red Blood Count 3.76 X10*6/uL (4.20-5.50); Red Cell Distribution Width 14.6 % (11.0-16.0); White Blood Count 5.1 X10*3/uL (4.8-10.8)
[2023-12-26 14:41] LABS: Alanine Aminotransferase 18 U/L (0-31); Albumin Level 4.2 g/dL (3.5-5.0); Alkaline Phosphatase 133 U/L (39-117); Anion Gap 14 (12-20); Aspartate Amino Transferase 23 U/L (5-31); Bilirubin Total 0.3 mg/dL (0.0-1.0); Blood Urea Nitrogen 9 mg/dL (9-16); Calcium 10.2 mg/dL (8.4-10.2); Carbon Dioxide 22 mmol/L (22-29); Chloride 109 mmol/L (96-108); Estimated Glomerular Filt Rate > 60; Glucose Random 108 mg/dL (60-115); Potassium 3.8 mmol/L (3.3-5.1); Sodium 141 mmol/L (135-145); Total Protein 7.6 g/dL (6.5-8.0)
[2023-12-26 15:02] LABS: Ferritin 51 ng/mL (10-250)
[2023-12-27 13:54] LABS: Alpha Fetoprotein 4.8 ng/mL
[2024-01-11 17:59] LABS: FIB-ALT 14 U/L (6-29); FIB-Alpha-2-Macroglobulin 379 mg/dL (106-279); FIB-Apolipoprotein A1 153 mg/dL (101-198); FIB-GGT 35 U/L (3-65); FIB-Haptoglobin 169 mg/dL (43-212); FIB-Total Bilirubin 0.2 mg/dL (0.2-1.2); Liver Fibrosis Score 0.38; Liver Fibrosis Stage F1-F2; Nec Inflam Act Grade A0; Nec Inflam Act Score 0.05
== END 2023-12-26 12:23 | disposition home or self-care (01) ==
LOC: HO.LAB 12:22
PROVIDERS: Internal Medicine Medical Oncology; PCP Family Medicine; Visit Provider Internal Medicine
DX: D51.9 Vitamin B12 deficiency anemia, unspecified (principal); K74.60 Unspecified cirrhosis of liver; N20.0 Calculus of kidney
CPT/HCPCS: 36415; 80053; 81596; 82105; 82728; 85025

== ENCOUNTER 2024-01-31 08:56 | Outpatient (AMB) | payer MEDICARE, MEDICAID, SELFPAY ==
--- NOTE | 2024-01-31 09:05 | MHC.OFFVIS ---
Intake Visit Reasons: f/u s/p U/S 10/30 Intake Note: Patient presents for US follow up. Patient states she does have occasional leg pain but believes it is mostly due to her arthritis. Accompanied by: Self / Same As Patient Allergies aspirin [ASPIRIN] Allergy (Intermediate, Verified 01/31/24 09:06) RASH Penicillins [PENICILLINS] Allergy (Intermediate, Verified 01/31/24 09:06) HIVES, BLACK SPOTS HPI HPI f/u s/p U/S 10/30: Details: Very pleasant 73-year-old female presents for follow-up regarding lower extremity pain and discomfort. 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 In general she has some mild swelling but seems to be relatively well controlled. Her biggest complaint at the current time is arthritis knee in joint pain. It appears to be well controlled with acetaminophen. She now presents for follow-up with venous insufficiency testing [facility] Medical History IBS (irritable bowel syndrome) Lymphoma Diverticulitis Diverticulosis Hypothyroid Tubal ligation evaluation GERD (gastroesophageal reflux disease) Aberrant thyroid gland Asthma B12 deficiency anemia Pulmonary embolism Primary osteoarthritis of knees, bilateral Breast cancer, left breast Surgical History History of endoscopy Hx of nasal septoplasty Hx of lithotripsy History of lumpectomy of left breast Hx of cholecystectomy History of esophagogastroduodenoscopy (EGD) H/O colonoscopy Hx of lymph node biopsy History of bone marrow biopsy History of removal of Port-a-Cath History of vocal cord polypectomy Hx of rotator cuff surgery Hx of carpal tunnel repair Family History Mother Family hx of colon cancer Arthritis Father Hx of kidney disease Brother History of throat cancer Daughter Arthritis Sister Arthritis Social History Household Members: None Housing: Condominium Are you a primary pet care technician to a significant other at home: No Do you 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 have 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) Alcohol intake: never Patient Tobacco Use Status: Former Tobacco user Second Hand Smoke Exposure: No service: No Current occupational status: disabled Sexual orientation: Straight/Heterosexual Gender identity: Female Female Reproductive History Menstrual Age of Menarche: 9 Review of Systems Const All systems reviewed & are unremarkable except as noted in HPI and below Reports no additional complaints ENT Reports Normal hearing present Card Denies chest pain, Denies chest pain at rest, Denies chest pain with activity and Denies pedal edema Resp Denies cough GI Denies abdominal pain Musc Denies abnormal gait, Denies muscle cramps and Denies radiating pain into limb Skin/Breast Denies skin ulcer and Denies wounds Neuro Reports Normal hearing present and Denies abnormal gait Psych Reports no additional complaints Physical Exam Const General: cooperative, healthy appearing and comfortable Orientation/consciousness: oriented to person, oriented to place and oriented to time HEENT Head: Yes normal to inspection Neck Neck: Yes normal visual inspection Carotids: no bruits Chest Chest palpation & inspection: normal inspection of the chest Resp Effort & Inspection: normal respiratory effort and able to speak in complete sentences Auscultation: clear to auscultation bilaterally, no crackles, no rales, no rhonchi and no wheezes Cardio Rate: regular rate Rhythm: regular rhythm Heart sounds: S1 normal heart sound present and S2 normal heart sound present Bruits: no carotid bruits Peripheral pulses: Peripheral pulses 2+ throughout GI Inspection: Yes normal to inspection Skin Wounds: no wounds Hair: normal Neuro General: oriented to person, oriented to place and oriented to time Cranial nerves: Yes CN's II-XII intact bilaterally and Yes Normal hearing present Cognition (Neuro): normal cognition Motor exam (neuro): 5/5 motor strength present throughout Extrem Other: venous exam: No significant superficial varicosities or spider telangiectasias, minimal edema General: No clubbing, No cyanosis and No edema Psych Appearance: grossly normal Mental Status: mental status grossly normal Speech and movement: Normal speech and movement present Results Reviewed Results Reviewed: Brief summary of venous insufficiency testing is as follows: right great saphenous vein: negative right small saphenous vein: negative right accessory vein: none present left great saphenous vein: negative left small saphenous vein: negative left accessory vein: none present Please note there is no evidence of any venous aneurysms or significant tortuosity Assessment & Plan Assessment & Plan (1) Bilateral leg cramps: Code(s): R25.2 - Cramp and spasm Category: Medical Plan: In short patient is negative for any significant venous insufficiency. At the current time I did discuss conservative measures including compression elevation and exercise. I do believe she has an element of arthritis which is contributing to this. She will follow up with us on an as-needed basis. Thank you for allowing us to assist in her care. If there are any questions or concerns please do not hesitate to contact us. Coding Level of Care Code Est Pt Level 4 (70834) Diagnoses Bilateral leg cramps R25.2
== END 2024-01-31 10:12 | disposition home or self-care (01) ==
PROVIDERS: PCP Family Medicine; Visit Provider Surgery Vascular Surgery
DX: R25.2 Cramp and spasm (principal)
CPT/HCPCS: 99213

== ENCOUNTER → 2024-01-31 08:56 | Outpatient (BNVA) | payer MEDICARE, MEDICAID, SELFPAY | PROVIDERS: PCP Family Medicine; Visit Provider Surgery Vascular Surgery | DX: R25.2 Cramp and spasm (principal) | CPT/HCPCS: 99212 ==

== ENCOUNTER 2024-05-07 15:44 | Outpatient (REF) | payer MEDICARE, MEDICAID, SELFPAY ==
--- NOTE | ~2024-05-07 | US_ITS ---
EXAMINATION: US SOFT TISSUES mid right back CLINICAL INFORMATION: Pain COMPARISON: None TECHNIQUE: High-frequency linear transducer ultrasound utilized area of interest scanned. FINDINGS: There is no ultrasound evidence of loculated fluid collection, hematoma or abscess. US/US chest IMPRESSION: No ultrasound evidence of cyst, loculated fluid or abscess. If there is a clinical suspicion for soft tissue mass, or other internal derangements, MRI might be indicated. Electronically signed by: Qiana Petersen MD 06/19/2024 07:50 AM EST
== END 2024-05-07 15:45 | disposition home or self-care (01) ==
LOC: HO.US 15:44
PROVIDERS: PCP Family Medicine; Visit Provider Family Medicine
DX: R22.2 Localized swelling, mass and lump, trunk (principal)
CPT/HCPCS: 76604

== ENCOUNTER 2024-06-03 20:53 | Emergency (ER) | payer MEDICARE, MEDICAID, SELFPAY ==
--- NOTE | ~2024-06-03 | CT_ITS ---
EXAMINATION: CT ABDOMEN AND PELVIS WITH CONTRAST CLINICAL INFORMATION: Left lower quadrant pain. Constipation. COMPARISON: Abdominal ultrasound 12/05/2023 CT abdomen pelvis 08/21/2022. TECHNIQUE: Multidetector volumetric images were obtained from the superior aspect of the liver through the pubic symphysis following administration 85 mL of Omnipaque 350 intravenous contrast. Sagittal and coronal reformatted images were obtained on the technologist's workstation. Oral contrast: No This CT examination was performed using dose optimization techniques as appropriate, variously including the following: *Automated exposure control *Adjustment of mA and/or kV according to patient size (this includes techniques or standardized protocols for targeted exams where dose is matched to indication/reason for exam; i.e. extremities or head) *Use of iterative reconstruction technique DLP: 478 mGy-cm FINDINGS: LUNG BASES: The visualized lung bases are unremarkable. LIVER, GALLBLADDER, AND BILIARY TREE: The liver demonstrates a diffusely nodular contour suspicious for cirrhosis. No focal parenchymal lesions the liver identified. Cholecystectomy clips noted. No biliary duct dilatation visualized. PANCREAS: Unremarkable. SPLEEN: Unremarkable. ADRENAL GLANDS: Unremarkable. KIDNEYS AND URETERS: A 3 mm calculus is present in the inferior pole of the right renal pelvis. 1 mm calculus is present in the inferior pole of the left renal pelvis. No hydronephrosis or perinephric inflammatory changes. BLADDER: Unremarkable. GASTROINTESTINAL TRACT: Mild sigmoid diverticulosis is present. Focal concentric mural thickening and mild reticulation of the adjacent sigmoid mesentery is present in the proximal sigmoid colon (series 3 image 53). Several diverticula are present in this same region. A discrete colonic mass is not visualized. Mild diverticulosis of the descending colon is present. Normal appearance of the appendix. No free intraperitoneal fluid or gas collections. Minimal reticulation of the root of the small bowel mesentery fat. Normal appearance of the stomach and duodenum. ABDOMINAL WALL: No intestinal hernias. Midline ventral abdominal wall fascial amandeep in place. LYMPH NODES: Normal. VASCULAR: Mild scattered calcific atherosclerosis PELVIC VISCERA: Normal uterus. No adnexal lesions. OSSEOUS STRUCTURES: No suspicious skeletal lesions. CT/CT abdomen pelvis w IV con IMPRESSION: *Findings suspicious for uncomplicated acute diverticulitis of the proximal sigmoid colon. Mild concentric mural thickening and mild adjacent inflammatory changes are present in the proximal sigmoid colon. Mild diverticulosis of the descending colon and sigmoid colon is present. No free intraperitoneal fluid or gas collections. Rarely, inflammatory annular carcinoma of sigmoid colon may present with similar findings. Consider clinical correlation and possible direct visualization of the sigmoid colon as clinically indicated. *Mild edematous changes of the fat in the root of the small bowel mesentery. 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 *Status post cholecystectomy. Electronically signed by: Zelalem Pack MD 06/04/2024 12:07 AM EDT
--- NOTE | 2024-06-03 20:54 | ED.ABDPAIN ---
HPI - Abdominal Pain General Chief Complaint: Abdominal Pain Stated Complaint: abd/back pain Time Seen by Provider: 06/03/24 23:20 Source: patient, RN notes reviewed and old records reviewed Mode of arrival: ambulatory Limitations: no limitations History of Present Illness ED Provider: Corinne BAL narrative: 73-year-old female presents for evaluation of left lower abdominal pain. Patient reports her pain started 2 days ago and radiates to her back The pain does radiate to the right side but is most severe in the left lower abdomen She reports a history of diverticulitis as well as constipation She denies any black or bloody stool Denies any fevers, chills. She is able to eat and drink without vomiting Her pain is an 810 No other complaints or concerns at this time Related Data Home Medications ?Medication ?Instructions ?Recorded ?Confirmed albuterol sulfate 90 mcg/actuation 2 puff inhalation Q4-6H PRN 05/03/20 01/18/24 aerosol inhaler Shortness Of Breath levothyroxine 88 mcg tablet 88 mcg PO DAILY 05/03/20 01/18/24 montelukast 10 mg tablet 10 mg PO DAILY 05/03/20 01/18/24 pantoprazole 40 mg tablet,delayed 40 mg PO DAILY 05/03/20 01/18/24 release cholecalciferol (vitamin D3) 25 25 mcg PO DAILY 05/14/20 01/18/24 mcg (1,000 unit) capsule cyanocobalamin (vitamin B-12) 1,000 mcg IM [id number] 05/14/20 01/18/24 1,000 mcg/mL injection solution ascorbic acid (vitamin C) 1,000 mg 1 g PO Q6H 11/11/20 01/18/24 tablet (Vitamin C) simethicone 125 mg tablet 250 mg PO BID PRN Gastrointestinal 11/11/20 01/18/24 Spasms Or Cramping meclizine 25 mg tablet 1 tab PO TID PRN Dizziness 12/12/21 01/18/24 dicyclomine 10 mg capsule 2 cap PO Q6H PRN Gastrointestinal 03/07/22 01/18/24 Spasms Or Cramping Previous Rx's ?Medication ?Instructions ?Recorded acetaminophen 300 mg-codeine 30 mg 1 tab PO Q6H PRN pain #20 tabs 06/22/23 tablet Magic Mouthwash 10 ml PO QID #240 mL 09/17/23 Diphen/Lido/Antacid 1:1:1 240 mL suspension levofloxacin 750 mg tablet 750 mg PO DAILY #7 tabs 06/04/24 metronidazole 500 mg tablet 500 mg PO Q8H #21 tabs 06/04/24 Allergies Allergy/AdvReac Type Severity Reaction Status Date / Time aspirin [ASPIRIN] Allergy Intermediate RASH Verified 06/03/24 20:56 Penicillins [PENICILLINS] Allergy Intermediate HIVES, BLACK Verified 06/03/24 20:56 SPOTS Review of Systems Constitutional: Denies body ache(s), Denies chills and Denies fever(s) Denies vertigo and Denies dizziness Cardiovascular: Denies chest pain and Denies dyspnea Respiratory: Denies cough and Denies dyspnea Gastrointestinal: Reports abdominal pain, Denies hematochezia, Reports constipation, Denies nausea and Denies vomiting Musculoskeletal: Denies back pain Skin/Breast: Denies rash Denies vertigo and Denies dizziness PMFSH Past Medical History Medical History IBS (irritable bowel syndrome) Lymphoma Diverticulitis Diverticulosis Hypothyroid Tubal ligation evaluation GERD (gastroesophageal reflux disease) Aberrant thyroid gland Asthma B12 deficiency anemia Pulmonary embolism Primary osteoarthritis of knees, bilateral Breast cancer, left breast Surgical History History of endoscopy Hx of nasal septoplasty Hx of lithotripsy History of lumpectomy of left breast Hx of cholecystectomy History of esophagogastroduodenoscopy (EGD) H/O colonoscopy Hx of lymph node biopsy History of bone marrow biopsy History of removal of Port-a-Cath History of vocal cord polypectomy Hx of rotator cuff surgery Hx of carpal tunnel repair Family History Family History Mother Family hx of colon cancer Arthritis Father Hx of kidney disease Brother History of throat cancer Daughter Arthritis Sister Arthritis Social History Social History Household Members: None Housing: Condominium Are you a primary rn wound care to a significant other at home: No 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) Alcohol intake: never Patient Tobacco Use Status: Former Tobacco user Smoked in Last 30 Days: No Second Hand Smoke Exposure: No Use of substances other than those prescribed or required for medical reasons: No Advance Directives: No Advance Directives Information Provided: Yes Do you have a plan to hurt others: No Plan service: No Current occupational status: disabled Sexual orientation: Straight/Heterosexual Gender identity: Female Physical Exam ED Vital Signs: Vital Signs - 24 hr 06/03/24 20:55 06/03/24 22:53 Temperature 97.4 F 98.3 F Pulse Rate 91 87 Respiratory Rate 20 18 Blood Pressure 141/69 H 121/45 L Pulse Oximetry 100 100 Oxygen Delivery Method Room Air Room Air BMI result Body Mass Index 28.5 Const General: healthy appearing, comfortable, no acute distress, alert and awake Nutritional Appearance: well nourished Orientation/consciousness: patient oriented x3 HENMT Head: Yes normocephalic and Yes atraumatic Eyes Eyelids: Yes eyelids normal Conjunctivae: conjunctivae normal Sclerae: sclerae normal Corneas: corneas normal Pupils: Equal, round and reactive pupils present EOM: EOMs intact bilaterally Neck Neck: Yes full ROM Resp Effort & Inspection: normal respiratory effort, able to speak in complete sentences and not labored GI Inspection: No distended Palpation (GI): Soft to palpation, not firm, Tenderness to palpation present (GI) in the LLQ, no guarding and not rigid Auscultation: normoactive bowel sounds Skin General skin exam: elasticity normal Neuro General: patient oriented x3 Cranial nerves: Yes Equal, round and reactive pupils present and Yes Bilaterally intact EOM present Cognition (Neuro): normal cognition Extrem Other: Moving all extremities well without any obvious deformities Course Course Course Narrative: This is a Rapid Medical Exam performed in triage by Desi Valdez PA-C. Full HPI, ROS and PE to be performed by primary ED provider. 73yo F w past medical hx GERD, asthma, PE, hypothyroid presenting to the ED c/o lower abdominal pain radiating to back x yesterday with nausea & chills. Denies V/D, urinary sx PE: uncomfortable, + left lower quadrant tenderness, no rebound or guarding. Plan: labs, UA, CT Medical Decision Making Medical Decision Making MDM Narrative: 73-year-old female presents for evaluation of left lower abdominal pain. She does have a history of diverticulitis and given the left lower quadrant area of pain, this is a likely diagnosis today. She denies any symptoms, but obstructive uropathy is in the differential. Her labs show no leukocytosis, she has a chronic anemia consistent with a baseline. Chemistries show no concerning abnormalities. Urinalysis does not show evidence of infection or blood. A CT scan of the abdomen pelvis was ordered in triage which confirms acute uncomplicated sigmoid diverticulitis. We will treat with levofloxacin and metronidazole as the patient is penicillin allergic. Discussed with the patient, return precautions were given. I also advised a liquid diet Differential Diagnosis Differential Diagnoses: The differential diagnosis associated with the presentation includes Diverticulitis Colitis Obstructive uropathy Constipation Abdominal pain Lab Data MDM Lab Attestation statement: I reviewed the patient's lab results. See above 06/03/24 21:07 06/03/24 21:07 Labs: Lab Results 06/03/24 06/03/24 Range/Units 21:07 22:55 WBC 7.0 (4.8-10.8) X10*3/uL RBC 3.87 L (4.20-5.50) X10*6/uL Hgb 10.9 L (12.0-16.0) g/dl Hct 33.5 L (37.0-47.0) % MCV 86.6 (80.0-98.0) fL MCH 28.2 (27.0-33.0) pg MCHC 32.5 (31.0-35.0) g/dl RDW 14.6 (11.0-16.0) % Plt Count 178 (160-400) X10*3/uL MPV 11.1 (9.4-12.3) fL Immature Gran % (Auto) 0.3 (0.0-0.4) % Neut % (Auto) 62.9 (45-73) % Lymph % (Auto) 22.1 (20-40) % [place] % (Auto) 13.7 H (2-11) % Eos % (Auto) 0.7 (0-4) % Baso % (Auto) 0.3 (0-2) % Lymph # (Auto) 1.6 (1.2-4.9) X10*3/uL [place] # (Auto) 1.0 (0.1-1.2) X10*3/uL Eos # (Auto) 0.1 (0.0-0.4) X10*3/uL Baso # (Auto) 0.0 (0.0-0.2) X10*3/uL Abs Immat Gran (auto) 0.02 (0.00-0.03) X10*3/uL Absolute Neuts (auto) 4.4 (2.0-8.3) x10*3/uL Absolute Nucleated RBC 0.000 (0.0-0.012) X10*3/uL Nucleated RBC % (auto) 0.0 (0.0-0.2) /100WBC Sodium 140 (135-145) mmol/L Potassium 4.3 (3.3-5.1) mmol/L Chloride 105 (96-108) mmol/L Carbon Dioxide 23 (22-29) mmol/L Anion Gap 16 (12-20) BUN 10 (9-16) mg/dL Creatinine 0.79 (0.5-1.4) mg/dL Estim Creat Clear Calc 62.1 Estimated GFR > 60 Random Glucose 108 (60-115) mg/dL Calcium 9.7 (8.4-10.2) mg/dL Magnesium 2.2 (1.6-2.6) mg/dL Total Bilirubin 0.2 (0.0-1.0) mg/dL Direct Bilirubin < 0.2 (0.0-0.5) mg/dL AST 28 (5-31) U/L ALT 20 (0-31) U/L Alkaline Phosphatase 131 H (39-117) U/L Total Protein 7.7 (6.5-8.0) g/dL Albumin 4.3 (3.5-5.0) g/dL Lipase 46 (8-78) U/L Urine Color Yellow Urine Appearance Clear Urine pH 7.0 (5.0-9.0) Ur Specific Sulphur 1.010 (1.005-1.025) Urine Protein Negative (Neg-Trace) mg/dL Urine Glucose (UA) Negative (Negative) mg/dL Urine Ketones Negative (Negative) mg/dL Urine Blood Negative (Negative) Urine Nitrite Negative (Negative) Ur Leukocyte Esterase Moderate (2+) H (Negative) Urine RBC 0-2 (0-2) /HPF Urine WBC 0-5 (0-5) /HPF Ur Squamous Epith Cells 0-2 (0-2) /HPF Urine Bacteria None Seen (None Seen) Hyaline Casts 0-2 (0-2) /LPF Independent Interpretation I performed an independent interpretation of an: CT Scan Interpretation: Agree with Radiology interpretation Radiology Impression Discussion of test interpretation with radiology: I have reviewed the radiologist's reading. Radiologist Impression: CT/CT abdomen pelvis w IV con IMPRESSION: *Findings suspicious for uncomplicated acute diverticulitis of the proximal sigmoid colon. Mild concentric mural thickening and mild adjacent inflammatory changes are present in the proximal sigmoid colon. Mild diverticulosis of the descending colon and sigmoid colon is present. No free intraperitoneal fluid or gas collections. Rarely, inflammatory annular carcinoma of sigmoid colon may present with similar findings. Consider clinical correlation and possible direct visualization of the sigmoid colon as clinically indicated. *Mild edematous changes of the fat in the root of the small bowel mesentery. 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 *Status post cholecystectomy. Electronically signed by: Zelalem Pack MD 06/04/2024 12:07 AM EDT Medications Administered Discontinued Medications Generic Name Dose Route Start Last Admin Trade Name Freq PRN Reason Stop Dose Admin Iohexol 85 ml 06/03/24 21:55 06/03/24 21:56 Iohexol 350 Mg/Ml 100 Ml Infus..Btl IV 06/03/24 21:56 85 ml ONCE ONE Administration Ketorolac Tromethamine 30 mg 06/03/24 23:37 06/03/24 23:46 Ketorolac Tromethamine 30 Mg/Ml Vial IVPUSH 06/03/24 23:38 30 mg ONCE ONE Administration Ondansetron HCl 4 mg 06/03/24 23:37 06/03/24 23:46 Ondansetron Hcl 4 Mg/2 Ml Vial IVPUSH 06/03/24 23:38 4 mg ONCE ONE Administration Discharge Plan Discharge Clinical Impression: Acute diverticulitis Patient Disposition: Home, Self-Care Instructions: Diverticulitis (ED), Diverticulitis Diet (ED) Additional Instructions: Your CT scan showed diverticulitis of the sigmoid colon which is likely the cause of your pain today Take both antibiotics as prescribed. I recommend a liquid diet for the next 2-3 days Use Tylenol as needed for pain Follow-up with your primary doctor, return for new or worsening symptoms Prescriptions: New levofloxacin 750 mg tablet 750 mg PO DAILY Qty: 7 0RF metronidazole 500 mg tablet 500 mg PO Q8H Qty: 21 0RF No Action ascorbic acid (vitamin C) [Vitamin C] 1,000 mg Tablet 1 g PO Q6H simethicone 125 mg Tablet 250 mg PO BID PRN (Reason: Gastrointestinal Spasms Or Cramping) meclizine 25 mg tablet 1 tab PO TID PRN (Reason: Dizziness) Magic Mouthwash Diphen/Lido/Antacid 1:1:1 240 mL Suspension 10 ml PO QID Qty: 240 6RF Rx Instructions: Lidocaine Viscous 2 % 80mL; diphenhydramine 12.5 mg/5 mL 80mL; aluminum-mag hydrox-simeth [id number] 80mL dicyclomine 10 mg capsule 2 cap PO Q6H PRN (Reason: Gastrointestinal Spasms Or Cramping) acetaminophen-codeine 300-30 mg tablet 1 tab PO Q6H PRN (Reason: pain) Qty: 20 0RF montelukast 10 mg tablet 10 mg PO DAILY pantoprazole 40 mg tablet,delayed release (DR/EC) 40 mg PO DAILY levothyroxine 88 mcg tablet 88 mcg PO DAILY albuterol sulfate 90 mcg/actuation HFA aerosol inhaler 2 puff inhalation Q4-6H PRN (Reason: Shortness Of Breath) cholecalciferol (vitamin D3) 25 mcg (1,000 unit) capsule 25 mcg PO DAILY cyanocobalamin (vitamin B-12) 1,000 mcg/mL solution 1,000 mcg IM [id number] Print Language: Japanese
[2024-06-03 20:55] VITALS: BP 141/69; PULSE 91; RESP 20; TEMP 36.3; O2SAT 100; BMI 28.5
[2024-06-03 21:11] LABS: MANUAL DIFF FLAG NO
[2024-06-03 21:12] LABS: Basophils Percent Auto 0.3 % (0-2); Eosinophils Absolute Auto 0.1 X10*3/uL (0.0-0.4); Eosinophils Percent Auto 0.7 % (0-4); Hematocrit 33.5 % (37.0-47.0); Hemoglobin 10.9 g/dl (12.0-16.0); Imm Gran Abs Auto 0.02 X10*3/uL (0.00-0.03); Imm Gran Pct Auto 0.3 % (0.0-0.4); Lymphocytes Absolute Auto 1.6 X10*3/uL (1.2-4.9); Lymphocytes Percent Auto 22.1 % (20-40); Mean Corpuscular HGB Conc 32.5 g/dl (31.0-35.0); Mean Corpuscular Hemoglobin 28.2 pg (27.0-33.0); Mean Corpuscular Volume 86.6 fL (80.0-98.0); Mean Platelet Volume 11.1 fL (9.4-12.3); Monocytes Percent Auto 13.7 % (2-11); Neutrophils Absolute Auto 4.4 x10*3/uL (2.0-8.3); Neutrophils Percent Auto 62.9 % (45-73); Platelet Count 178 X10*3/uL (160-400); Red Blood Count 3.87 X10*6/uL (4.20-5.50); Red Cell Distribution Width 14.6 % (11.0-16.0)
[2024-06-03 21:28] LABS: Alanine Aminotransferase 20 U/L (0-31); Albumin Level 4.3 g/dL (3.5-5.0); Alkaline Phosphatase 131 U/L (39-117); Anion Gap 16 (12-20); Aspartate Amino Transferase 28 U/L (5-31); Bilirubin Direct < 0.2 mg/dL (0.0-0.5); Bilirubin Total 0.2 mg/dL (0.0-1.0); Blood Urea Nitrogen 10 mg/dL (9-16); Calcium 9.7 mg/dL (8.4-10.2); Carbon Dioxide 23 mmol/L (22-29); Chloride 105 mmol/L (96-108); Creatinine Clr Calc Pharmacy 62.1; Estimated Glomerular Filt Rate > 60; Glucose Random 108 mg/dL (60-115); Lipase 46 U/L (8-78); Magnesium 2.2 mg/dL (1.6-2.6); Potassium 4.3 mmol/L (3.3-5.1); Sodium 140 mmol/L (135-145); Total Protein 7.7 g/dL (6.5-8.0)
[2024-06-03] MEDS: iohexoL 350 MG/ML 100 ML INFUS..BTL 85 ML IV (21:56)
--- NOTE | 2024-06-03 21:59 | PC.NURSE ---
Pt aox4, resting at the bedside. VSS. Reports abd pain in all 4 quadrants that radiates to the back, /. Pt beliefs being constipated as last regular BM was yesterday and today was very little. Denies urinary symptoms. Urine cup provided for urine sample. 20G IV R AC. Pending CT scan and physician evaluation. Monitoring is ongoing.
[2024-06-03 22:53] VITALS: BP 121/45; PULSE 87; RESP 18; TEMP 36.8; O2SAT 100
[2024-06-03 23:03] LABS: Appearance Urine Clear; Color Urine Yellow; Glucose Urine UA Negative (Negative); Leukocyte Esterase Urine Moderate (2+) (Negative); Nitrite Urine Negative (Negative); UMIC TRIGGER UACC YES; Urine Blood Negative (Negative); Urine Ketones Negative (Negative); Urine Protein Negative (Neg-Trace)
[2024-06-03 23:14] LABS: Bacteria Urine None Seen (None Seen); Hyaline Casts Urine 0-2 /LPF (0-2); RBC Urine 0-2 /HPF (0-2); Squamous Epithelial Cell Urine 0-2 /HPF (0-2); WBC Urine 0-5 /HPF (0-5)
[2024-06-03] MEDS: ondansetron HCL 4 MG/2 ML VIAL IVPUSH (23:46)
[2024-06-03] MEDS: Ketorolac Tromethamine 30 MG/ML VIAL IVPUSH (23:46)
[2024-06-04] MEDS: levoFLOXacin 750 MG TABLET PO (00:41)
[2024-06-04] MEDS: metroNIDAZOLE 500 MG TABLET PO (00:41)
[2024-06-04 00:54] VITALS: BP 116/62; PULSE 90; RESP 14; TEMP 36.7; O2SAT 98
== END 2024-06-04 00:55 | disposition home or self-care (01) ==
PROVIDERS: Physician Assistant; Emergency Provider Emergency Medicine; PCP Family Medicine
DX: K57.32 Diverticulitis of large intestine without perforation or abscess without bleeding (principal); M54.50 Low back pain, unspecified; R11.0 Nausea; R10.2 Pelvic and perineal pain; Z79.899 Other long term (current) drug therapy
CPT/HCPCS: 36415; 74177; 80048; 80076; 81001; 81003; 83690; 83735; 85025; 96374; 96375; 99284; 99285; J1885; J2405; Q9967

== ENCOUNTER 2024-06-05 09:35 | Outpatient (REF) | payer MEDICARE, MEDICAID, SELFPAY | END 2024-06-05 09:36 | disposition home or self-care (01) | LOC: HO.US 09:35 | PROVIDERS: PCP Family Medicine; Visit Provider Nurse Practitioner Family | DX: N20.0 Calculus of kidney (principal) | CPT/HCPCS: 76700; 76981 ==

== ENCOUNTER 2024-06-12 13:28 | Outpatient (AMB) | payer MEDICARE, MEDICAID, SELFPAY ==
--- NOTE | 2024-06-12 13:42 | A.OFFVIS_ITS ---
Intake Visit Reasons: 1y/US(set) Intake Note: Patient presents today for follow up on: kidney stone and ultrasound results Imaging Completed: 06/05/24 Urology Medications: none Blood Thinner: none Senior Clinical Study Manager Required: No Accompanied by: Self / Same As Patient Allergies aspirin [ASPIRIN] Allergy (Intermediate, Verified 06/15/24 11:38) RASH Penicillins [PENICILLINS] Allergy (Intermediate, Verified 06/15/24 11:38) HIVES, BLACK SPOTS Medication List - Last Reconciled 06/15/24 by KATT Lomax acetaminophen-codeine 300-30 mg 1 tab PO Q6H PRN albuterol sulfate 90 mcg/actuation 2 puffs inhalation Q4-6H PRN ascorbic acid (vitamin C) (Vitamin C) 1 g PO Q6H cholecalciferol (vitamin D3) 25 mcg PO DAILY cyanocobalamin (vitamin B-12) 1,000 mcg IM [id number] dicyclomine 2 caps PO Q6H PRN levothyroxine 88 mcg PO DAILY Magic Mouthwash Diphen/Lido/Antacid 1:1:1 10 mL PO QID meclizine 1 tab PO TID PRN montelukast 10 mg PO DAILY pantoprazole 40 mg PO DAILY simethicone 250 mg PO BID PRN HPI Comments Details: Anisha is a very pleasant 73-year-old female who is a patient of Dr. Rubi. She has a past medical history of IBS, lymphoma, diverticulitis, diverticulosis, hypothyroidism, GERD, asthma, B12 deficiency anemia, pulmonary embolism, osteoarthritis of bilateral knees, and left-sided breast cancer status post lumpectomy/radiation/tamoxifen. She presents to the office today for follow-up of her nephrolithiasis. Of note, patient was last seen a proximally 1 year ago at which time a renal ultrasound was ordered for surveillance monitoring of nephrolithiasis however patient reports having had recent CT due to ongoing issues with diverticulosis/diverticulitis she has been experiencing. These results were reviewed with the patient today. A 3 mm calculus is present in the inferior pole of the right renal pelvis. 1 mm calculus is present in the inferior pole of the left renal pelvis. No hydronephrosis or perinephric inflammatory changes noted. The bladder is unremarkable. She denies having had any bothersome urinary issues or concerns. She denies urinary urgency, urinary frequency, incontinence, nocturia, hematuria, dysuria, foul smelling urine, changes to urinary stream, flank pain, fever, and or chills. She is happy with her current voiding parameters. In office urinalysis results reviewed with the patient today. She does have a history of right-sided ESWL 02/[address] Foster. Discussed and stressed the importance of drinking plenty of water daily. Plan was for metabolic workup with 24 hour urine collection however patient reports she has been unable to collect her urine due to her busy schedule in does not care to do so at this time. We discussed correlation of metabolic workup with nephrolithiasis. She otherwise denies any bothersome issues or concerns at this time. [facility] Medical History IBS (irritable bowel syndrome) Lymphoma Diverticulitis Diverticulosis Hypothyroid Tubal ligation evaluation GERD (gastroesophageal reflux disease) Aberrant thyroid gland Asthma B12 deficiency anemia Pulmonary embolism Primary osteoarthritis of knees, bilateral Breast cancer, left breast Surgical History History of endoscopy Hx of nasal septoplasty Hx of lithotripsy History of lumpectomy of left breast Hx of cholecystectomy History of esophagogastroduodenoscopy (EGD) H/O colonoscopy Hx of lymph node biopsy History of bone marrow biopsy History of removal of Port-a-Cath History of vocal cord polypectomy Hx of rotator cuff surgery Hx of carpal tunnel repair Family History Mother Family hx of colon cancer Arthritis Father Hx of kidney disease Brother History of throat cancer Daughter Arthritis Sister Arthritis Social History Household Members: None Housing: Condominium Are you a primary care transition mgr to a significant other at home: No Do you presently have visiting nurse or other home services: Yes (CERTIFIED PESTICIDE APPLICATOR) Alcohol intake: never Patient Tobacco Use Status: Former Tobacco user Second Hand Smoke Exposure: No service: No Current occupational status: disabled Sexual orientation: Straight/Heterosexual Gender identity: Female Female Reproductive History Menstrual Age of Menarche: 9 Review of Systems Const Reports as per [facility] Eyes Reports no additional complaints ENT Reports no additional complaints Card Reports as per HPI Resp Reports as per HPI GI Reports as per HPI Reports as per HPI Musc Reports as per HPI Neuro Reports as per HPI Endo Reports as per HPI Physical Exam Const General: cooperative, healthy appearing, comfortable, no acute distress, well developed, alert and awake Orientation/consciousness: patient oriented x3 Limitations: no limitations HEENT Head: Yes normal to inspection, Yes normocephalic and Yes atraumatic Ears: hearing grossly normal bilaterally Eyes General: appearance normal, both eyes and all related structures Neck Neck: Yes normal visual inspection and Yes trachea midline Chest Chest palpation & inspection: normal inspection of the chest Resp Effort & Inspection: normal respiratory effort and able to speak in complete sentences Cardio Rate: regular rate GI Inspection: Yes normal to inspection General: Yes no CVA tenderness Back/Spine/Pelvis Back: no CVA tenderness Skin General skin exam: no rashes or lesions noted Neuro General: patient oriented x3 Extrem General: Yes normal to inspection Psych Appearance: grossly normal and well kempt Mental Status: mental status grossly normal Speech and movement: Normal speech and movement present and Clear speech present Affect: normal affect Attitude: cooperative Thought process: Normal thought process present Thought content: Normal thought content present Insight: Fair insight present (Psych) Judgement: Fair judgement present (Psych) Results AMB Urinalysis, Automated UA Leukoctes 70 Aditi/uL Last Edit by [employer] Bobby on 06/12/24 13:54 UA Nitrite Last Edit by [employer] on 06/12/24 13:54 UA Urobilinogen 0.2 mg/dL Last Edit by [employer] on 06/12/24 13:54 UA Protein 0 mg/dL Last Edit by [employer] on 06/12/24 13:54 UA pH 6.0 Last Edit by [employer] GriceldaBoostable on 06/12/24 13:54 UA Blood 0 Kalpesh/uL Last Edit by [employer] on 11/07/24 13:54 UA Specific [place] 1.015 Last Edit by Stevediamond Griceldachris on 06/12/24 13:54 UA Ketone Last Edit by Stevediamond Griceldachris on 06/12/24 13:54 UA Bilirubin 0 mg/dL Last Edit by Jessie Griceldachris on 06/12/24 13:54 UA Glucose 0 mg/dL Last Edit by Jessie Griceldachris on 06/12/24 13:54 Results Reviewed Results Reviewed: Laboratory Last Values Urine pH (Auto) 6.0 06/12/24 13:50 Specific [place] (Auto) 1.015 06/12/24 13:50 Urine Protein (Auto) 0 mg/dL 06/12/24 13:50 Glucose (UA)(Auto) 0 mg/dL 06/12/24 13:50 Urine Blood (Auto) 0 Kalpesh/uL 06/12/24 13:50 Urine Bilirubin (Auto) 0 mg/dL 06/12/24 13:50 Urine Urobilinogen (Auto) 0.2 mg/dL 06/12/24 13:50 Leukocyte Esterase (Auto) 70 Aditi/uL 06/12/24 13:50 EXAMINATION: CT ABDOMEN AND PELVIS WITH CONTRAST FINDINGS: LUNG BASES: The visualized lung bases are unremarkable. LIVER, GALLBLADDER, AND BILIARY TREE: The liver demonstrates a diffusely nodular contour suspicious for cirrhosis. No focal parenchymal lesions the liver identified. Cholecystectomy clips noted. No biliary duct dilatation visualized. PANCREAS: Unremarkable. SPLEEN: Unremarkable. ADRENAL GLANDS: Unremarkable. KIDNEYS AND URETERS: A 3 mm calculus is present in the inferior pole of the right renal pelvis. 1 mm calculus is present in the inferior pole of the left renal pelvis. No hydronephrosis or perinephric inflammatory changes. BLADDER: Unremarkable. GASTROINTESTINAL TRACT: Mild sigmoid diverticulosis is present. Focal concentric mural thickening and mild reticulation of the adjacent sigmoid mesentery is present in the proximal sigmoid colon (series 3 image 53). Several diverticula are present in this same region. A discrete colonic mass is not visualized. Mild diverticulosis of the descending colon is present. Normal appearance of the appendix. No free intraperitoneal fluid or gas collections. Minimal reticulation of the root of the small bowel mesentery fat. Normal appearance of the stomach and duodenum. ABDOMINAL WALL: No intestinal hernias. Midline ventral abdominal wall fascial amandeep in place. LYMPH NODES: Normal. VASCULAR: Mild scattered calcific atherosclerosis PELVIC VISCERA: Normal uterus. No adnexal lesions. OSSEOUS STRUCTURES: No suspicious skeletal lesions. CT/CT abdomen pelvis w IV con IMPRESSION: *Findings suspicious for uncomplicated acute diverticulitis of the proximal sigmoid colon. Mild concentric mural thickening and mild adjacent inflammatory changes are present in the proximal sigmoid colon. Mild diverticulosis of the descending colon and sigmoid colon is present. No free intraperitoneal fluid or gas collections. Rarely, inflammatory annular carcinoma of sigmoid colon may present with similar findings. Consider clinical correlation and possible direct visualization of the sigmoid colon as clinically indicated. *Mild edematous changes of the fat in the root of the small bowel mesentery. 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 *Status post cholecystectomy. Assessment & Plan Assessment & Plan (1) Kidney stone: Code(s): N20.0 - Calculus of kidney Category: Medical Plan In office urinalysis results reviewed with the patient today; as noted above. Recent CT results reviewed with the patient today; as noted above. Patient currently denies any bothersome urinary issues or concerns. She reports be happy with current voiding parameters. Continue adding 1 oz of lemon juice to water daily. Continue with increased hydration relation to nephrolithiasis. Discussed at length potential causes of nephrolithiasis as well as further metabolic workup however patient declines at this time. Will obtain renal ultrasound in 1 year. Follow-up in 1 year with imaging to be completed prior; or sooner with any issues, concerns, and or questions. Orders: Orders US renal BI 1 Year N20.0 - Calculus of kidney AMB Urinalysis Automated 06/12/24 Z13.9 - Encounter for screening, unspecified Patient Instructions: The patient had an opportunity to ask questions regarding the treatment plan. All questions were answered. Physical exam, labs, and imaging were discussed and reviewed in detail. As well as risks, benefits, and discussion of treatment choices. No major barriers to understanding were identified. The patient expressed understanding and agreement with the above treatment plan. The patient was made aware they should contact our office by phone for worsening of their current condition, the appearance of new symptoms, or with any questions or concerns. Compliance is encouraged with any medications and follow up testing that is ordered. It is a privilege to be allowed the opportunity to participate in? your urological care.? Again, if you have any questions or concerns If you have any questions or concerns please do not hesitate to contact me. The office is [phone]. This note is constructed using voice recognition software. While every effort has been made to ensure accuracy navy fighter pilot errors may have been included. Yours sincerely, KATT Lomax Coding Level of Care Code Est Pt Level 3 (47048) Complex EM visit Add On G2211 Diagnoses Kidney stone N20.0
== END 2024-06-12 14:13 | disposition home or self-care (01) ==
LOC: HO.HUSH 13:29
PROVIDERS: PCP Family Medicine; Visit Provider Nurse Practitioner Family
DX: N20.0 Calculus of kidney (principal)
CPT/HCPCS: 99213; G2211

== ENCOUNTER → 2024-06-12 13:28 | Outpatient (BNVA) | payer MEDICARE, MEDICAID, SELFPAY | PROVIDERS: PCP Family Medicine; Visit Provider Nurse Practitioner Family | DX: N20.0 Calculus of kidney (principal) | CPT/HCPCS: 81003; 99212 ==

== ENCOUNTER 2024-07-07 14:10 | Outpatient (REF) | payer MEDICARE, MEDICAID, SELFPAY | END 2024-07-07 14:11 | disposition home or self-care (01) | LOC: HO.HHCLNP 14:10 | PROVIDERS: Visit Provider Internal Medicine | DX: J02.9 Acute pharyngitis, unspecified (principal) | CPT/HCPCS: 87070 ==

== ENCOUNTER 2024-09-30 08:18 | Outpatient (REF) | payer MEDICARE, MEDICAID, SELFPAY ==
--- OUTSIDE RECORDS SUMMARY | 2024-09-30 08:38 | XMS_ITS ---
Author Organization [facility] Address [address] [place] [address] Care Team Providers Care Maritime Officer Name Role Phone Elicia PADILLA, Sandy Primary Care Provider Hugo Cain Unavailable [phone] ALLERGIES Allergen (clinical drug ingredient) Drug/Non Drug Allergy documented on EMR Reaction Allergy Type Onset Date Status Penicillin Unknown Drug Allergy Active aspirin Aspirin Unknown Drug Allergy Active RESULTS Component Value Reference Range Notes US abdomen comp w elastograp hy Reviewed date:12/17/2023 01:06:26 PM Interpretation: Performing Lab: Notes/Report: [facility] [address] [place] [id number] Ultrasound Report Signed Patient: Anisha Renteria MR#: [id number] : 1950 Acct:[id number] Age/Sex: 73 / F ADM Date: 12/05/23 Loc: HO.US Attending Dr: Hugo Jeong MD Ordering Physician: Hugo Jeong Date of Service: 12/05/23 Procedure(s): US abdomen comp w elastography Accession Number(s): [id number] cc: Sandy Rubi MD; Hugo Jeong EXAMINATION: US COMPLETE ABDOMEN WITH LIVER ELASTOGRAPHY CLINICAL INFORMATION: Hepatic cirrhosis, without ascites. COMPARISON: None available. TECHNIQUE: Real-time imaging of the abdominal viscera. Noninvasive ultrasound liver fibrosis assessment is performed using Freida ElastPQ point quantification shear wave elastography (2D-SWE) with a C5-2 MHz transducer. Multiple elastography samples are obtained. FINDINGS: PANCREAS: Normal. The visualized pancreatic head and body are normal in appearance. The remainder of the pancreas is obscured from visualization by the overlying bowel gas. ABDOMINAL AORTA: The proximal, middle, and distal aortic segments are normal in caliber. INFERIOR VENA CAVA: Visualized portions are normal. LIVER: Normal. The liver demonstrates normal size, contour and echogenicity. No focal lesion or intrahepatic biliary duct dilatation. The right lobe measures 15.2 cm in length. The left lobe measures 13.8 cm in length. Portal flow is towards the liver (hepatopetal). Shear wave liver elastography median stiffness is 1.5 m/s (reference: normal median stiffness is 1.3 m/s or less). IQR/median stiffness to assess sampling precision is 0.19 (reference: good quality data set is IQR/median stiffness of 0.15 or less). GALLBLADDER: Normal. The gallbladder is physiologically distended without evidence of stones, sludge, polyps, wall thickening or pericholecystic fluid. COMMON BILE DUCT: Normal in caliber measuring 0.8 cm in diameter. RIGHT KIDNEY: Normal. No hydronephrosis. No renal calculi or focal parenchymal lesions. The kidney measures 9.8 cm in maximum dimension. LEFT KIDNEY: Normal. No hydronephrosis. No renal calculi or focal parenchymal lesions. The kidney measures 11.1 cm in maximum dimension. SPLEEN: Normal. The spleen measures 8 point cm in maximum dimension. FREE FLUID: None. US/US abdomen comp w elastography IMPRESSION: 1. There is generalized increase in hepatic echotexture, consistent with fatty infiltration or hepatocellular disease. Please correlate clinically. No focal hepatic mass or intrahepatic biliary dilatation is seen. 2. Liver elastography: Although measurements appear to rule out compensated advanced chronic liver disease, there is statistical variability of the sampling which decreases accuracy. REFERENCE: Society of Radiologists in Ultrasound Liver Stiffness Thresholds (2020): LIVER STIFFNESS THRESHOLDS: *Liver Stiffness equal or less than 1.3 m/s: High probability of being normal. *Liver Stiffness less than 1.7 m/s: In the absence of other known clinical signs, rules out compensated advanced chronic liver disease. *Liver Stiffness 1.7-2.1 m/s: Suggestive of compensated advanced chronic liver disease but need further test for confirmation. *Liver Stiffness over 2.1 m/s: Rules in compensated advanced chronic liver disease. *Liver Stiffness over 2.4 m/s: Suggestive of clinically significant portal hypertension. QUALITY OF DATA SET: *IQR/Median value equal or less than 0.15 implies a quality data set. *IQR/Median value over 0.15 implies a poor quality data set. SIGNIFICANT CHANGE FROM PRIOR EXAM: Significant change if liver stiffness measurement is 10% or greater from prior exam. OTHER CONSIDERATIONS: The stage of liver fibrosis may be overestimated in the setting of acute hepatitis, liver inflammation, elevated liver function tests, hepatic vascular congestion, obstructive cholestasis, non-fasting state, and infiltrative diseases such as amyloidosis and lymphoma. In some patients with NAFLD, the liver stiffness thresholds for compensated advanced chronic liver disease may be lower. In causes other than viral hepatitis and NAFLD, liver stiffness thresholds are not well established. Dictated By: Sean Walker MD Signed By: <Electronically signed by Sean Walker MD in OV> 12/11/231933 DD/ 105 TD/TT: Apron Operator: RIN REASON FOR VISIT Patient presents today for gerd MEDICATIONS Medication SIG (Take, Route, Frequency, Duration) Notes Start Date End Date Status Sucralfate 1 GM TAKE 1 TABLET BY ORA L ROUTE 4 TIMES EVERY DAY ON AN EMPTY STOMACH 1 HOUR BEFORE MEALS AND AT BEDTIME Oral as directed Not-Esvin ing metroNIDAZOLE 500 MG 1 tablet Orally Thr ee times a day for 10 day(s) 02/19/2023 Active Pantoprazole Sodium 40 MG TAKE 1 TABLET BY MOUTH TWICE A DAY Orally Twice a day for heartburn and reflux for 90 days Active Ciprofloxacin HCl 500 MG 1 tablet Orally every 12 hrs for 5 days 08/24/2022 Active Cipro 500 MG 1 tablet Orally ever y 12 hrs for 10 days 02/19/2023 Active Dulcolax (colon prep) 5 MG take at 3:00 p.m and 7:00p.m. Orally two tablets twice a day for one day for 1 day 01/24/2022 Active Dicyclomine HCl 10 MG TAKE 1-2 CAPSULES BY MOUTH EVERY 6 HOURS NEEDED FOR CRAMPS/DISCOMFORT for 90 Active Qvar 80 MCG/ACT 1 puff Inhalation Tw ice a day Active MiraLax (colon prep) 17 GM/SCOOP 1 238Gm bottle mixed with Gatorade or Crystal Light Orally begin at 5:00 p.m. the day before the procedure for 1 day 01/24/2022 Active Vitamin C 500 MG as directed Orally Active Albuterol Sulfate (2.5 MG/3ML) 0.083% 3 ml Inhalation Three times a day Active Vitamin B6 50 MG 1 tablet Orally Once a day for 30 day(s) Active Meclizine HCl 25mg 1 tablet as needed Orally 3 times a day as needed Active Singulair 10 MG 1 tablet in the even ing Orally Once a day Active MiraLax 17 GM/SCOOP 1 scoop mixed with 8 ounces of fluid Orally Once or twice a day for constipation for 30 day(s) 11/28/2023 Active Vitamin D 1000unit 1 capsule Orally Onc e a day Active Vitamin B 12 1000mcg 1 intramuscular darryn ry month Active Levothyroxine Sodium 112 MCG 1 tablet Orally Once a day Active ProAir HFA 90mcg 2 puffs as needed Inhalation every 4 hrs Active SOCIAL HISTORY Tobacco Use: Social History Observation Description Date Details (start date - stop date) Former Smoker NA - NA Sex Assigned At : Social History Observation Description Sex Assigned At Unknown Tobacco Use/Smoking Question Answer Notes Patient is a former smoker When did you stop smoking? 26 VITAL SIGNS Temperature 97.5 degrees Fahrenheit 11/28/19 Blood pressure systolic 000 mm Hg 11/28/19 24 Blood pressure diastolic 00 mm Hg 024 Height 64 in 11/28/2023 Weight 169 lbs 11/28/2023 BMI 29.01 kg/m2 11/28/2023 Encounters Encounter Location Date Provider Diagnosis [facility] [address] [place] [address] 11/28/2023 Hugo Jeong Gastroesophageal ref lux disease without esophagitis K21.9 ; Hx of adenomatous colonic polyps Z86.010 ; Cirrhosis of liver without ascites, unspecified hepatic cirrhosis type K74.60 ; Irritable bowel syndrome with constipation K58.1 and Diverticulitis of large intestine without perforation or abscess without bleeding K57.32 ASSESSMENTS Encounter Date Diagnosis Assessment Notes Treatment Notes Treatment Clinical Notes 11/28/2023 Gastroesophageal reflux disease without esophagitis (ICD-10 - K21.9) Continue Pantoprazole 11/28/2023 Hx of adenomatous colonic polyps (ICD-10 - Z86.010) Repeat colonoscopy in 03/202711/28/2023 Cirrhosis of liver without ascites, unspecified hepatic cirrhosis type (ICD-10 - K74.60) 11/28/2023 Irritable bowel syndrome with constipation (ICD-10 - K58.1) Continue Miralax and Prune Juice every day Use Dicyclomine as needed for abdominal cramps 11/28/2023 Diverticulitis of large intestine without perforation or abscess without bleeding (ICD-10 - K57.32) PLAN OF TREATMENT Medication Medication Name Sig Start Date Stop Date Notes MiraLax 17 GM/SCOOP 1 scoop mixed with 8 ounces of fluid Orally Once or twice a day for constipation for 30 day(s) 11/28/2023 Treatment Notes Assessment Notes Gastroesophageal reflux dise ase without esophagitis Continue Pantoprazole Hx of adenomatous colonic polyps Repeat colonoscopy in 03/2027 Irritable bowel syndrome with constipati on Continue Miralax and Prune Juice every day Use Dicyclomine as needed for abdominal cramps Pending Test Test Name Order Date ALPHA-FETOPROTEIN,TUMOR MARKER Liver Fibrosis Pnl 11/28/2023 Next Appt Details Follow Up: 1 Year, Reason: Provider Name:Hugo Jeong , 12/02/2024 09:10:00 AM, [address] [place] [address], [address], [place], [address], Progress Notes * Examination Category Sub-Category Detail Notes General Examination GENERAL APPEARANCE: pleasant , well nourished, well developed, in no acute distress EYES: sclera non-icteric NECK/THYROID: no cervical lymphade nopathy, neck supple HEART: S1, S2 normal LUNGS: clear to auscultatio n bilaterally ABDOMEN: normal bowel sounds, no guarding or rigidity, no masses palpable, soft, nondistended--mild diffuse tenderenss NEUROLOGIC: alert and oriented SKIN: nonjaundiced, no spi misty angiomata EXTREMITIES: no edema ORAL CAVITY: mucosa moist
--- OUTSIDE RECORDS SUMMARY | 2024-09-30 08:38 | XMS_ITS ---
Author Organization [facility] Address [address] [place] [address] Care Team Providers Care Insurance Claims Representative Name Role Phone Elicia PADILLA, Sandy Primary Care Provider Hugo Cain [phone] REASON FOR VISIT Patient presents today for gerd Encounters Encounter Location Date Provider Diagnosis [facility] [address] [place] [address] 07/03/2023 Hugo Jeong PLAN OF TREATMENT Next Appt Details Provider Name:Hugo Jeong , 12/02/2024 09:10:00 AM, [address], [address], [place], [address],
--- OUTSIDE RECORDS SUMMARY | 2024-09-30 08:38 | XMS_ITS | Clinical Summary ---
Author Organization [employer] Address [address] [place] [address] [address] [place] [address] Care Team Providers Care Supervisor Power Reactor Name Role Phone Shanel Rubi MD Primary Care Provider [phone] Allergies Active Allergy Reactions Criticality Noted Date Comments Aspirin 07/19/2010 Penicillins Rash High 07/19/2010 Other reaction(s): HIVES, BLACK SPOTS Medications Bisacodyl EC 5 MG EC tablet TAKE 2 TABLETS BY MOUTH QT 3:00PM AND 7:00PM 01/26/20 22 Active cetirizine (ZyrTEC) 10 MG tablet Take 10 mg by mouth in the morning. 10/01/19 22 Active cyanocobalamin (Vitamin B-12) 1000 MCG/ML injection Inject 1 mL into the shoulder, thigh, or buttocks. Active dicyclomine (Bentyl) 10 MG capsule TAKE 1-2 CAPSULES BY MOUTH EVERY 6 HOURS NEEDED FOR CRAMPS/DISCOMFOR T 05/05/20 22 Active cholecalciferol (Vitamin D3) 200 Unit tablet split tablet 25 mcg. 05/14/20 20 Active meclizine (Antivert) 25 MG tablet Take 1 tablet (25 mg) by mouth if needed in the morning, at noon, and at bedtime for dizziness. 30 tablet 3 05/15/20 23 Active simethicone (Mylicon,Gas-X) 180 MG capsule Take 1 capsule by mouth every 6 hours as needed for gas pain 120 capsule 3 05/15/20 23 Active acetaminophen (Tylenol) 325 MG capsule 1-2 cap po tid prn pain 120 capsule 3 05/15/20 23 Active clotrimazole (Mycelex) 10 MG almaz TAKE 1 TABLET BY MOUTH 4 TIMES A DAY ALLOW TO DISSOLVE SLOWLY 120 Almaz 3 05/15/20 23 Active Ventolin HFA 108 (90 Base) MCG/ACT inhaler INHALE 2 PUFF BY MOUTH EVERY 4 - 6 HOURS NEEDED FOR DIFFICULTY BREATHING, 4 TIMES / DAY 18 g 3 09/05/19 24 Active cyclobenzaprine (Flexeril) 10 MG tablet Take 1 tablet (10 mg) by mouth 3 times daily for 10 days. 30 tablet 10/16/19 24 Active albuterol (2.5 MG/3ML) 0.083% nebulizer solution Take 3 mL (2.5 mg) by nebulization every 4 (four) hours if needed for wheezing or shortness of breath (Maximum 4 treatments per day). 75 mL 1 12/10/19 24 025 Active pantoprazole (ProtoNix) 40 MG EC tablet TAKE 1 TABLET BY MOUTH TWICE A DAY FOR HEARTBURN AND REFLUX 90 DAYS 180 tablet 03/31/20 24 Active HYDROcodone Bit-Homatrop MBr 5-1.5 MG/5ML solution Take 5 mL by mouth every 4 (four) hours if needed (cough). 473 mL 04/14/20 24 Active levothyroxine (Synthroid, Levoxyl) 88 MCG tabletIndications: Acquired hypothyroidism Take 1 tablet (88 mcg) by mouth before breakfast. 90 tablet 3 04/14/20 24 Active montelukast (Singulair) 10 MG tablet Take 1 tablet (10 mg) by mouth in the evening. 90 tablet 3 04/14/20 24 Active lidocaine (Lidoderm) 5 % patchIndications:P ostherpetic neuralgia Apply 1 patch topically Once per day. Remove & discard patch within 12 hours or as directed by . 30 patch 11 04/14/20 24 Active magnesium oxide (Mag-Ox) 400 MG tablet Take 1 tablet (400 mg) by mouth Once per day. 90 tablet 3 09/29/19 25 026 Active Active Problems Problem Noted Date Diagnosed Date Mass on back 04/15/2024 Overview (04/15/2024): - palpable, tender - evaluate with ultrasound Assessment & Plan (04/15/2024 9:01 AM EDT): - palpable, tender - evaluate with ultrasound - advised to patient to have a marking either by us or family member prior to the US. Postherpetic neuralgia 04/14/2024 Assessment & Plan (04/15/2024 8:57 AM EDT): - right T7 or T8 dermatome - trial of lidocaine patch History of shingles 04/14/2024 Assessment & Plan (04/15/2024 8:59 AM EDT): - Likely right T7/8 dermatome - trial of lidocaine patch Elevated BP without diagnosis of hypertension Assessment & Plan (11/09/2023 6:05 PM EDT): - Pt attributes this to stress. - Advised pt to monitor BP at home. - Continue lifestyle modifications. - Will continue to monitor. H/O meniscectomy of right knee 11/07/2023 Tear of medial meniscus of right knee 05/15/2023 Assessment & Plan (08/11/2023 6:07 AM EST): - MRI on 04/16/23 showed lateral and medial meniscus tear of right knee - Following with Dr. Mitchell at [facility] - s/p right knee partial medial and lateral meniscectomies, chondroplasty, and plica excision on 06/22/23 - continue APAP prn Assessment & Plan (05/15/2023 4:54 PM EDT): - MRI on 04/16/23 showed lateral and medial meniscus tear of right knee - Following with Dr. Mitchell - Anticipating a surgery in June - continue APAP prn Tear of lateral meniscus of knee 05/15/2023 Assessment & Plan (08/11/2023 6:07 AM EST): - MRI on 04/16/23 showed lateral and medial meniscus tear of right knee - Following with Dr. Mitchell at [facility] - s/p right knee partial medial and lateral meniscectomies, chondroplasty, and plica excision on 06/22/23 - continue APAP prn Assessment & Plan (05/15/2023 4:54 PM EDT): - MRI on 04/16/23 showed lateral and medial meniscus tear of right knee - Following with Dr. Mitchell - Anticipating a surgery in June - continue APAP prn Leg cramp 05/15/2023 Assessment & Plan (05/15/2023 5:15 PM EDT): - periodic check in electrolytes - encourage stretching exercise Chronic pain of right knee 05/15/2023 Assessment & Plan (05/15/2023 5:15 PM EDT): MRI on 04/16/23 showed: 1. Complex tear of the body and posterior horn of the medial meniscus. 2. [id number] patellofemoral arthrosis. 3. Mild medial compartment arthrosis. Concomitant subchondral cyst versus insufficiency fracture in the weightbearing medial femoral condyle with prominent surrounding edema. 4. Minimal lateral compartment arthrosis. 5. Mild joint effusion and synovitis with small Pedraza's cyst. Partially visualized lesion in the distal metaphysis of the femur corresponding to the sclerotic density seen on x-ray. This most likely reflects a cartilage lesion likely enchondroma. Bone infarct remains in the differential diagnosis particularly given the radiographic appearance and the fact that the lesion is not fully evaluated on MRI. Continued routine follow up to ensure stability of this suspected benign lesion. 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 - Treated with Coumadin while pt was on tamoxifen - No recurrece AMANDA positive 02/27/2023 Overview (02/27/2023): - already evaluated by marble cutter operator, last seen in 2019 - no rheumatological abnormality, pt has hypothyroidism - consider repeating lab Assessment & Plan (05/15/2023 5:17 PM EDT): - evaluated by marble cutter operator and was given a reassurance that she does not have rheumatological problem Right foot pain 12/23/2022 Assessment & Plan (04/15/2024 8:58 AM EDT): -Mar 2022 X-ray showed OA -Seen by dinkey engine firer and Dx plantar fasciitis -Continue ice, stretching exercise, and APAP prn -Continue wearing comfortable shoes. Assessment & Plan (12/23/2022 6:32 PM EDT): -Mar 2022 X-ray showed OA -Seen by dinkey engine firer and Dx plantar fasciitis -Continue ice, stretching exercise, and APAP prn -Continue wearing comfortable shoes. Diverticulosis of colon 12/18/2022 Assessment & Plan (05/15/2023 5:09 PM EDT): - diverticulitis of proximal sigmoid colon in Aug 2022 - s/p treatment with metronidazole and ciprofloxacin (pt had an adverse reaction with levofloxacin) Assessment & Plan (12/23/2022 6:35 PM EDT): - diverticulitis of proximal sigmoid colon in Aug 2022 - s/p treatment with metronidazole and ciprofloxacin (pt had an adverse reaction with levofloxacin) History of diverticulitis of colon 12/18/2022 Assessment & Plan (05/15/2023 5:23 PM EDT): - most recent episode on 08/21/22, no perforation or abscess - outpatient treatment with metronidazole and levofloxacin - following with GI - 03/10/22 EGD and colonoscopy by Dr. Jeong. Dx colonic polyp (tubular adenoma); diverticulosis, internal hemorrhoids, hiatal hernia, mild gastritis. Assessment & Plan (12/23/2022 6:36 PM EDT): - most recent episode on 08/21/22, no perforation or abscess - outpatient treatment with metronidazole and levofloxacin - following with GI 03/10/22 Pt underwent EGD and colonoscopy by Dr. Jeong. Dx colonic polyp (tubular adenoma); diverticulosis, internal hemorrhoids, hiatal hernia, mild gastritis. Recommended to repeat colonoscopy in 5 years and pantoprazole. Irritable bowel syndrome with constipation 12/18 Assessment & Plan (05/15/2023 5:08 PM EDT): - Evaluated by NORMA Avelar, last seen in 2021 - continue simethicone prn - continue dicyclomine prn Metabolic dysfunction-associ ated steatotic liver disease (MASLD) 12/18/2022 Assessment & Plan (05/15/2023 5:07 PM EDT): - evaluated by GI, and was given reassurance that she does not have cirrhosis - likely NAFLD / TOWNSEND - healthier diet Assessment & Plan (12/23/2022 6:37 PM EDT): - evaluated by GI, and was given reassurance that she does not have cirrhosis - likely NAFLD / TOWNSEND - healthier diet Nonspecific mesenteric adenitis 12/18/2022 Plantar fasciitis 12/18/2022 Assessment & Plan (05/15/2023 5:14 PM EDT): -Mar 2022 X-ray showed OA -Seen by dinkey engine firer and Dx plantar fasciitis -Continue ice, stretching exercise, and APAP prn -Continue wearing comfortable shoes. Assessment & Plan (12/18/2022 6:12 PM EDT): -Mar 2022 X-ray showed OA -Seen by dinkey engine firer and Dx plantar fasciitis -Continue ice, stretching exercise, and APAP prn -Continue wearing comfortable shoes. Osteopenia 12/18/2022 Assessment & Plan (05/15/2023 5:14 PM EDT): - last DEXA on 04/08/22, mild osteopenia, T-score -1.1 in femoral neck Assessment & Plan (12/18/2022 6:27 PM EDT): - last DEXA on 04/08/22, mild osteopenia, T-score -1.1 in femoral neck B-cell lymphoma 12/18/2022 Assessment & Plan (08/11/2023 6:10 AM EST): -diagnosed in October 2020 -low grade B-cell lymphoma -PET 10/20/20 FDG avid retroperitoneal and mesenteric lymph nodes -Echocardiogram on 10/26/20 Normal EF -s/p 6 cycles of R-CHOP chemotherapy (bendamustine / ritusimab from 11/11/20 to 04/07/21) -Seen by Oncologist, Dr. Tan on 05/17/23. No sign of recurrence. Most recent CT in Aug 2022 showed no adenoapthy. -Currently in remission; continue following up with oncologist and surveillance per oncologist. Assessment & Plan (05/15/2023 5:23 PM EDT): -diagnosed in October 2020 -low grade B-cell lymphoma -PET 10/20/20 FDG avid retroperitoneal and mesenteric lymph nodes -Echocardiogram on 10/26/20 Normal EF -s/p s/p 6 cycles of R-CHOP chemotherapy (bendamustine / ritusimab from 11/11/20 to 04/07/21) -Seen by Oncologist, Dr. Tan on 10/05/22. No sign of recurrence. Most recent CT in Aug 2022 showed no adenoapthy. -Currently in remission; continue following up with oncologist and surveillance per oncologist. Assessment & Plan (12/23/2022 6:41 PM EDT): -diagnosed in October 2020 -low grade B-cell lymphoma -PET 10/20/20 FDG avid retroperitoneal and mesenteric lymph nodes -Echocardiogram on 10/26/20 -s/p s/p 6 cycles of R-CHOP chemotherapy (bendamustine / ritusimab from 11/11/20 to 04/07/21) -Seen by Oncologist, Dr. Tan on 10/05/22. No sign of recurrence. Most recent CT in Aug 2022 showed no adenoapthy. -Currently in remission; continue following up with oncologist and surveillance per oncologist. Asthma 12/18/2022 Assessment & Plan (09/29/2024 10:57 AM EST): -Most recent exacerbation, 01/01/19-01/03/19, requiring hospitalization. Treated w/ steroids and azithromycin. 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 -no longer taking inhaled cortisol steroid. -continue using Albuterol prn. -continue montelukast for allergic rhinitis Judicious use of Hydrocodone - Homatropines cough syrup prn when she has bronchitis. Assessment & Plan (11/09/2023 6:04 PM EDT): -Most recent exacerbation, 01/01/19-01/03/19, requiring hospitalization. Treated w/ steroids and azithromycin. -Hx PE while on tamoxifen for LCIS -step down therapy in 2018 after PFT. -no longer taking inhaled cortisol steroid. -continue using Albuterol prn. -continue montelukast for allergic rhinitis Judicious use of Hydrocodone - Homatropines cough syrup prn when she has bronchitis. Assessment & Plan (08/11/2023 6:12 AM EST): -Most recent exacerbation, 01/01/19-01/03/19, requiring hospitalization. Treated w/ steroids and azithromycin. -Hx PE while on tamoxifen for LCIS -step down therapy in 2018 after PFT. -no longer taking inhaled cortisol steroid. -continue using Albuterol prn. -continue montelukast for allergic rhinitis Judicious use of Hydrocodone - Homatropines cough syrup prn when she has bronchitis. Assessment & Plan (05/15/2023 5:05 PM EDT): -Most recent exacerbation, 01/01/19-01/03/19, requiring hospitalization. Treated w/ steroids and azithromycin. -Hx PE while on tamoxifen for LCIS -step down therapy in 2018 after PFT. -no longer taking inhaled cortisol steroid. -continue using Albuterol prn. -continue Singulair for allergic rhinitis Judicious use of Hydrocodone - Homatropines cough syrup prn when she has bronchitis. Assessment & Plan (12/18/2022 6:35 PM EDT): -Most recent exacerbation, 01/01/19-01/03/19, requiring hospitalization. Treated w/ steroids and azithromycin. -Hx PE while on tamoxifen for LCIS -step down therapy in 2018 after PFT. -no longer taking inhaled cortisol steroid. -continue using Albuterol prn. -continue Singulair for allergic rhinitis Judicious use of Hydrocodone - Homatropines cough syrup prn when she has bronchitis. Allergic rhinitis 12/15/2022 Assessment & Plan (05/15/2023 5:24 PM EDT): - continue cetirizine and montelukast - she states she does not become dizzy with cetirizine and does not want to change to other antihistamine or decrease dosage. Assessment & Plan (12/23/2022 6:44 PM EDT): - continue cetirizine and montelukast Restrictive lung disease 12/15/2022 Vocal cord cyst 12/15/2022 Acquired hypothyroidism 06/28/2015 Assessment & Plan (09/29/2024 10:57 AM EST): Most recent TSH was therapeutic, 0.41 in November 2023 Continue levothyroxine 88 mcg daily. Assessment & Plan (04/15/2024 8:59 AM EDT): Most recent TSH was therapeutic, 0.41 in November 2023 Continue levothyroxine 88 mcg daily. Assessment & Plan (11/09/2023 6:06 PM EDT): Most recent TSH was therapeutic, 0.45 in August 2023 Continue levothyroxine 88 mcg daily. Assessment & Plan (08/11/2023 6:08 AM EST): Most recent TSH was therapeutic, 0.48 in January 2023 Continue levothyroxine 88 mcg daily. Assessment & Plan (05/15/2023 5:16 PM EDT): Most recent TSH was therapeutic, 0.48 in January 2023 Continue levothyroxine 88 mcg daily. Assessment & Plan (12/23/2022 6:41 PM EDT): Most recent TSH was therapeutic, 0.60 on 01/05/22 Continue levothyroxine 88 mcg daily. First degree atrioventricular block 12/13/2012 Assessment & Plan (05/15/2023 5:06 PM EDT): - most recent EKG in 2021 in [facility] shows MT 202 ms - review medications - asymptomatic, except dizziness which seems to be BPPV Benign paroxysmal positional vertigo 08/19/2012 Assessment & Plan (05/15/2023 5:23 PM EDT): - continue meclizine prn Gastroesophageal reflux disease 05/06/2012 Assessment & Plan (05/15/2023 5:08 PM EDT): -GI: Dr. Jeong -Most recent EGD on 03/30/22, mild gastritis -continue Pantoprazole. -continue simethicone prn gas pain - no longer on famotidine Assessment & Plan (12/23/2022 6:43 PM EDT): -GI: Dr. Jeong -Most recent EGD on 03/30/22, mild gastritis -continue Pantoprazole. -continue simethicone prn gas pain - no longer on famotidine Kidney stone 05/06/2012 Assessment & Plan (04/15/2024 8:58 AM EDT): -recurrent Kidney Stones -First right kidney stone diagnosed in December 2012. Treatment Hx: December 2012 cystostopy, ureteroscopy, laser stone ablation, stone extraction, stent placement. January 2013 Right ECSWL May 2013 Right ECSWL May 2019 Right ESWL February 2023 Right ESWL -Followed by [facility] Urology provider, last seen on 02/23/23 -Most recent US in December 2022 showed right kidney stone 4 x 5 x 7 mm. -KUB on 02/07/23 showed R kidney stone -Continue drinking water 2L / day, with addition of lemon juice -Continue vitamin B6 100 mg daily Assessment & Plan (05/15/2023 5:13 PM EDT): -recurrent Kidney Stones -First right kidney stone diagnosed in December 2012. Treatment Hx: December 2012 cystostopy, ureteroscopy, laser stone ablation, stone extraction, stent placement. January 2013 Right ECSWL May 2013 Right ECSWL May 2019 Right ESWL February 2023 Right ESWL -Followed by [facility] Urology provider, last seen on 02/23/23 -Most recent US in December 2022 showed right kidney stone 4 x 5 x 7 mm. -KUB on 02/07/23 showed R kidney stone -Continue drinking water 2L / day, with addition of lemon juice -Continue vitamin B6 100 mg daily - follow up with urologist as scheduled Assessment & Plan (12/18/2022 6:16 PM EDT): -h/o Kidney Stones -First right kidney stone diagnosed in December 2012. Treatment Hx: December 2012 cystostopy, ureteroscopy, laser stone ablation, stone extraction, stent placement. January 2013 Right ECSWL May 2013 Right ECSWL May 2019 Right ESWL -Followed by [facility] Urology provider, last seen on 10/17/22 -Most recent CT on 08/21/22 showed 5 mm non-obstructive kidney stone -KUB on 10/09/22 showed non-obstructive 5 mm right kidney stone -Continue drinking water 2L / day, with addition of lemon juice -Continue vitamin B6 100 mg daily - follow up with urologist after US in 3 mo Tubular adenoma of colon 05/06/2012 Assessment & Plan (05/15/2023 5:07 PM EDT): - colonoscopy by Dr. Jeong on 03/10/22, tubular adenoma Assessment & Plan (12/18/2022 6:19 PM EDT): - colonoscopy by Dr. Jeong on 03/10/22, tubular adenoma Lobular carcinoma in situ of breast 03/25/2012 Assessment & Plan (08/11/2023 6:10 AM EST): Dx: Lobular Carcinoma in situ of the left breast in April 2011 Tx: s/p Lumpectomy and radiation. Tamoxifen June 2011 - June 2016; complicated by pulmonary embolism Oncologist: Dr. Polanco, seen on 05/17/23. Screening b/l mammo on 09/26/22 BI-RADS 1, annual screening schedule She has completed 5 years of tamoxifen treatment. Continue surveillance per protocol and follow-up appt with Dr. Polanco. Assessment & Plan (05/15/2023 5:18 PM EDT): Dx: Lobular Carcinoma in situ of the left breast in April 2011 Tx: s/p Lumpectomy and radiation. Tamoxifen June 2011 - June 2016; complicated by pulmonary embolism Oncologist: Dr. Polanco, seen on 10/05/22. Screening b/l mammo on 09/26/22 BI-RADS 1, annual screening schedule She has completed 5 years of tamoxifen treatment. Continue surveillance per protocol and follow-up appt with Dr. Polanco. Assessment & Plan (12/18/2022 6:22 PM EDT): Dx: Lobular Carcinoma in situ of the left breast in April 2011 Tx: s/p Lumpectomy and radiation. Tamoxifen June 2011 - June 2016; complicated by pulmonary embolism Oncologist: Dr. Polanco, seen on 10/05/22. Screening b/l mammo on 09/26/22 BI-RADS 1, annual screening schedule She has completed 5 years of tamoxifen treatment. Continue surveillance per protocol and follow-up appt with Dr. Polanco. Obesity 03/25/2012 Osteoarthritis 03/25/2012 Assessment & Plan (09/29/2024 10:57 AM EST): - continue judicious use of APAP Assessment & Plan (08/11/2023 6:07 AM EST): - continue judicious use of APAP Assessment & Plan (09/29/2024 5:18 AM EST): >>ASSESSMENT AND PLAN FOR OSTEOARTHRITIS WRITTEN ON 05/15/2023 5:14 PM BY SHANEL RUBI MD - continue judicious use of APAP >>ASSESSMENT AND PLAN FOR PRIMARY OSTEOARTHRITIS INVOLVING MULTIPLE JOINTS WRITTEN ON 05/15/2023 5:13 PM BY SHANEL RUBI MD - continue judicious use of APAP Vitamin D deficiency 03/25/2012 Assessment & Plan (09/29/2024 10:58 AM EST): - last vitamin D level was normal in Apr 2023 - continue vitamin D supplementation Assessment & Plan (08/11/2023 6:08 AM EST): - last vitamin D level was normal in Apr 2023 - continue vitamin D supplementation Assessment & Plan (05/15/2023 5:16 PM EDT): - last vitamin D level was normal in Apr 2023 - continue vitamin D supplementation B12 deficiency anemia 03/25/2012 Assessment & Plan (09/29/2024 10:57 AM EST): - following with Dr. Polanco - continue vitamin B12 IM monthly at [facility] Heme / Onc - continue folic acid supplement Assessment & Plan (11/07/2023 5:26 AM EDT): - following with Dr. Polanco - continue vitamin B12 IM monthly at [facility] Heme / Onc - continue folic acid supplement Assessment & Plan (11/07/2023 5:25 AM EDT): >>ASSESSMENT AND PLAN FOR PERNICIOUS ANEMIA WRITTEN ON 12/18/2022 6:36 PM BY SHANEL RUBI MD - following with Dr. Polanco - continue vitamin B12 IM monthly at [facility] Heme / Onc - continue folic acid supplement Assessment & Plan (11/07/2023 5:25 AM EDT): >>ASSESSMENT AND PLAN FOR PERNICIOUS ANEMIA WRITTEN ON 05/15/2023 5:17 PM BY SHANEL RUBI MD - following with Dr. Polanco - continue vitamin B12 IM monthly at [facility] Heme / Onc - continue folic acid supplement Assessment & Plan (11/07/2023 5:25 AM EDT): >>ASSESSMENT AND PLAN FOR PERNICIOUS ANEMIA WRITTEN ON 08/11/2023 6:09 AM BY SHANEL RUBI MD - following with Dr. Polanco - continue vitamin B12 IM monthly at [facility] Heme / Onc - continue folic acid supplement Resolved Problems Problem Noted Date Diagnosed Date Resolved Date History of adenomatous polyp of colon 12/18/2022 12/18/2022 Left lower quadrant pain 12/15/2022 Restless legs 07/18/2013 05/15/2023 Migraine with aura 03/25/2012 Sinusitis 03/25/2012 05/15/2023 Encounters Date Type Department Care Team Description 09/29/2024 11:00 AM EST Office Visit [facility] [address] [place] [id number] Shanel Rubi MD Mild intermittent asthma without complication (Primary Dx); Primary osteoarthritis involving multiple joints; Acquired hypothyroidism; Vitamin D deficiency; Anemia due to vitamin B12 deficiency, unspecified B12 deficiency type; Screening for lipid disorders; Screening for diabetes mellitus; Metabolic dysfunction-associated steatotic liver disease (MASLD) 09/29/2024 Travel 09/24/2024 Telephone [facility] [address] [place] [id number] Shanel Rubi MD imaging 09/24/[address] [phone] Shanel Rubi MD Chart Prep 07/25/[address] [phone] Monse Silva MA august recall 07/07/2024 6:40 PM EST Office Visit [facility] [address] [place] [phone] Helen Nolasco MD Sore throat (Primary Dx) from Last 3 Months Immunizations Name Administration Dates Next Due Influenza High-dose Quadriva lent Preservative Free 07/05/2023,05/31/2022 Influenza Quadrivalent Adjuvanted 04/22/2020 Influenza injectable quadriv alent preservative free 06/16/2021,07/20/2016 Influenza, High Dose Seasona l, Preservative Free 06/02/2019,07/26/2017 Influenza, IIV3, injectable 05/29/2023,1 08/06/2020,05/06/2020,05/14,05/15/2018,09/06/2017,06/01/2016 ,04/06/2015,04/30/2014,05/23/2011 Influenza, Split (incl. annette fied surface antigen) 04/15/2013,05/10/2012 Influenza, seasonal, injecta ble, preservative free 06/01/2016 MMR 11/29/2000 Pneumococcal Conjugate PCV 13 12/30/2015 Pneumococcal Polysaccharide PPSV23 07/20/2016, TD (adult), 2 Lf tetanus tox oid, preservative free, adsorbed 03/07/2010,10/03/1999 Tdap 07/05/2023,01/21/2013 Zoster, Recombinant 11/11/2021 Zoster, live 01/21/2013 Social History Tobacco Use Types Packs/Day Years Used Date Smoking Tobacco: Never Passive Smoke Exposure: Never Smokeless Tobacco: Never Tobacco Cessation:Counseling Given: Not Answered Depression Answer Date Recorded Patient Health Questionnaire-9 Score 0 04/14/2024 Patient Health Questionnaire-9 Score 0 04/14/2024 Last PHQ-9: Questionnaire Data Not on file 0 04/14/2024 Housing Stability Answer Date Recorded What is your housing situation today? I have sudha ferrer 05/23/[address] you li ve. Do you have problems with any of the following? None of the above 05/23/2023 Food Insecurity Answer Date Recorded Within the past 12 months, y ou worried that your food would run out before you got money to buy more: Never True 05/23/2023 Within the past 12 months,th e food you bought just didn't last and you didn't have enough money to get more: Never True Transportation Answer Date Recorded In the past 12 months, has l ack of transportation kept you from medical appts, meetings, work or from getting things needed for daily living? No 05/23/2023 Utilities Answer Date Recorded In the past 12 months, has t he electric, gas, oil or water company threatened to shut off services in your home? No 05/23/2023 Depression Answer Date Recorded Patient Health Questionnaire-2 Score 0 04/14/2024 Comments Unknown Sex and Gender Information Value Date Recorded Sex Assigned at Female 06/05/2022 10:14 AM EDT Legal Sex Female 10:14 AM EDT Gender Identity Female 06/05/2022 10:14 AM EDT Sexual Orientation Straight 06/05/2022 10 :14 AM EDT Last Filed Vital Signs Vital Sign Reading Time Taken Comments Blood Pressure 122/71 09/29/2024 10:41 AM EST Pulse 75 09/29/2024 10:41 AM EST Temperature 36.6 ??C (97.8 ??F) 09/29/2024 10:[address] Respiratory Rate 20 09/29/2024 10:41 AM EST Oxygen Saturation 98% 09/29/2024 10:41 AM EST Inhaled Oxygen Concentration - - Weight 73.9 kg (163 lb) 09/29/2024 10:41 AM EST Height 154.9 cm (5' 1 ) 09/29/2024 10:41 AM EST Body Mass Index 30.8 09/29/2024 10:41 AM EST Plan of Treatment Health Maintenance Due Date Last Done Comments CT Colonography 1949 FIT DNA/Cologuard 1949 FIT 1949 FOBT 1950 Sigmoidoscopy 1950 Hepatitis A Vaccines (1 of 2 - Risk 2-dose series) 1968 Hepatitis B Vaccines (1 of 3 - Risk 3-dose series) 2009 RSV Patients and Patients Aged 60 years or older (1 - Risk 60-74 years 1-dose series) 2009 Zoster Vaccines (2 of 2) 01/06/2022 11/11/2021, 01/04 COVID-19 Vaccine ( season) 2024 05/31/2022, 08/03/2021, 10/21/2020, Additional history exists Influenza Vaccine (#1) 2024 , 05/29/2023, 05/31/2022, Additional history exists SDOH Screening 10/28/2024 10/29/2023 Diabetes: Hemoglobin A1C 11/15/2024 024, 01/09/2023, 01/05/2022, Additional history exists Depression Screening 04/14/2025 04/14/2024, 04/14/20 24 Alcohol/Substance Use Screening 09/29/2025 09/29/2024 Tobacco Screening 09/29/2025 09/29/2024 Colonoscopy 03/10/2028 03/10/2023 Colorectal Cancer Screening 03/10/2028 Lipid Panel 11/15/2028 11/16/2023, 06/0 01/2023, 01/05/2022 DTaP/Tdap/Td Vaccines (3 - Td or Tdap) 07/05/2033 07/05/2023, 01/21/2013, 03/07/2010, Additional history exists Pneumococcal Vaccine: 50+ Years Completed 07/20/2016, 12/30/2015, 09/03/2014 Hepatitis C Screening Completed 05/20/2021 HIB Vaccines Aged Out No longer eligi ble based on patient's age to complete this topic HPV Vaccines Aged Out No longer eligi ble based on patient's age to complete this topic IPV Vaccines Aged Out No longer eligi ble based on patient's age to complete this topic Meningococcal Vaccine Aged Out No tracy phan eligible based on patient's age to complete this topic RSV under 20 months Aged Out No longe r eligible based on patient's age to complete this topic Rotavirus Vaccines Aged Out No longer eligible based on patient's age to complete this topic Procedures Procedure Name Priority Date/Time Associated Diagnosis Comments CULTURE, THROAT Routine 07/07/2024 7:11 PM EST Sore throat POCT RAPID COVID ANTIGEN Routine 07/07/2024 6:53 PM EST Sore throat POCT INFLUENZA A (ID NOW RAPID MOLECULAR) Routine 07/07/2024 6:52 PM EST Sore throat POC ANDREW ID NOW STREP A Routine 07/07/2024 6:50 PM EST Sore throat POCT INFLUENZA B (ID NOW RAPID MOLECULAR) Routine 07/07/2024 6:50 PM EST Sore throat HEMOGLOBIN A1C Routine 11/16/2023 10:04 AM EDT Elevated BP without diagnosis of hypertension Other disorders of iron metabolism LIPID PANEL WITH REFLEX TO DIRECT LDL Routine 11/16/2023 10:04 AM EDT Elevated BP without diagnosis of hypertension Autoimmune thyroiditis HM COLONOSCOPY Routine 03/10/2023 ZZZ HISTORICAL HEPATITIS A,B,C PROFILE Routine 05/20/2021 9:15 AM EDT from Last 3 Months or Most Recently Relevant to Health Maintenance Results * Culture, Throat (07/07/2024 7:11 PM EST) Throat Structure of anterior portion of neck / Unknown 07/07/2024 7:11 PM EST 07/08/2024 2:12 PM EST Comment:Throat Narrative [facility] - 07/10/2024 8:49 AM EST Throat Culture No Group A Beta-hemolytic Streptococci isolated. Specimen Source: Throat Helen Nolasco MD LAB MICROBIOLOGY - GENERAL ORDERABLES Final Result Performing Organization Address [facility]/ZIP Co de Phone Number [facility] [address] [place] [phone] * POCT Rapid Covid-19 BinaxNOW (07/07/2024 6:53 PM EST) Rapid COVID Ag Negative QC Media Lot # [id number] Lot# Expiration Date 6,626 Swab 07/07/2024 6:53 PM EST us Helen Nolasco MD POINT OF CARE TEST ENTER/ED IT ORDERABLES Final Result * POCT Rapid Influenza A ANDREW ID NOW (07/07/2024 6:52 PM EST) Influenza A Negative Negative, Indeterminate [facility] QC Media Lot # [id number] [facility] Lot# Expiration Date [id number] [facility] Swab 07/07/2024 6:52 PM EST us Helen Nolasco MD POINT OF CARE TEST ENTER/ED IT ORDERABLES Final Result Performing Organization Address [facility]/ZIP Co de Phone Number [facility] [address] [place] [address] [phone] * POCT Rapid Influenza B ANDREW ID NOW (07/07/2024 6:50 PM EST) Influenza B Negative Negative, Indeterminate [facility] QC Media Lot # [id number] [facility] Lot# Expiration Date [facility] Swab 07/07/2024 6:50 PM EST us Helen Nolasco MD POINT OF CARE TEST ENTER/ED IT ORDERABLES Final Result [facility] [address] [place] [address] [phone] * POCT Rapid Strep A ANDREW ID NOW (07/07/2024 6:50 PM EST) Rapid Strep A Screen Negative Negative, None Detected QC Media Lot # [id number] Lot# Expiration Date Swab 07/07/2024 6:50 PM EST us Helen Nolasco MD POINT OF CARE TEST ENTER/ED IT ORDERABLES Final Result * Lipid Panel with Reflex to Direct LDL (11/16/2023 10:04 AM EDT) Triglycerides 76 <150 mg/dL [facility] Comment:Desirable Triglyceri de: less than 150 mg/dLBorderline High Triglyceride 150-199 mg/dLHigh Triglyceride: 200-499 mg/dLVery High Triglyceride: greater than or equal to 5OO mg/dL Cholesterol 131 <200 mg/dL [facility] Comment:Desirable Cholestero l: less than 200 mg/dLBorderline High Cholesterol: 200-239 mg/dLHigh Cholesterol: greater than 239 mg/dL LDL Cholesterol Calculated 74 <100 mg/dL [facility] Comment:Desirable LDL: less than 100 mg/dLNear Optimal/Above Optimal LDL: 110- 129 mg/dLBorderline High LDL: 130-159 mg/dLHigh LDL: 160-189 mg/dLVery High LDL: greater than or equal to 190 mg/dL HDL Cholesterol 42 >40 mg/dL [facility] Comment:Desirable HDL: great er than 40 mg/dL Note: This HDL assay may give artificially low results in patients with liver disease. Blood 11/16/2023 10:0 4 AM EDT 11/16/2023 11:29 AM EDT Shanel Rubi MD LAB BLOOD ORDERABLES Final Resul t Performing Organization Address [facility] Co de Phone Number [facility] [address] [place] [address] [phone] * Hemoglobin A1c (11/16/2023 10:04 AM EDT) Hemoglobin A1c 5.7 <6.0 % [facility] Comment:Hemoglobin A1C Refer ence Range Adults: 4.8 - 6.0 % Non diabetic: < 6.0 % Goal: < 7.0 %Additional Action Suggested: > 8.0 %Note: Hemoglobin A1c results are invalid for patients with abnormal amounts of HbF. Blood transfusions may impact the HbA1c concentration in the patient sample. Estimated Average Glucose 117 mg/dL [facility] Comment:eAG = Estimated ave rage glucose which is %A1C expressed asaverage glucose, using the formula of the [id number] Glucose study (ADAG), Diabetes Care, Vol.31,#8,Aug. 2007 Blood Venous blood specimen / Unknown 11/16/2023 10:04 AM EDT 11/16/2023 11:29 AM EDT Shanel Rubi MD LAB BLOOD ORDERABLES Final Resul t Performing Organization Address [facility] Co de Phone Number [facility] [address] [place] [address] [phone] * Hm Colonoscopy (03/10/2023) Colonoscopy Normal Normal Hugo Jeong MD HEALTH MAINTENANCE Final Result * Hepatitis A,B,C Profile (05/20/2021 9:15 AM EDT) Hepatitis B Core Antibody Nonreactive Nonreactive [facility] Hepatitis B Surface Antibody NONREACTIVE Nonreactive [facility] Comment:Nonreactive: < 8.00 mIU/mL Hepatitis B Surface Antigen Negative Negative [facility] Hepatitis C Antibody Nonreactive Nonreactive [facility] Comment: Antibodies to HCV not detected; does not exclude early acute HCV infection. 05/20/2021 9:15 AM EDT us Hugo Jeong MD HISTORICAL/NON ORDERABLE LABS Fi nal Result [facility] [address] [place] [address], from Last 3 Months or Most Recently Relevant to Health Maintenance Insurance [facility] STANDARD MEDICARE Care Teams Supervisor Power Reactor Relationship Specialty Start Date End Date Shanel Rubi MD [address] [place] [phone] PCP - General Family Medicine 08/06/18
--- OUTSIDE RECORDS SUMMARY | 2024-09-30 08:38 | XMS_ITS | Encounter Summary ---
Author Organization [employer] Address [address] [facility] 7t [place] [address] Care Team Providers Care Grocery Store Manager Name Role Phone Sandy Rubi MD Primary Care Provider [phone] Encounter Details Date Type Department Care Team ([facility] st Contact Info) Description 05/25/2023 Orders Only [facility] MEDICINE [address] [place], [place] [phone] Sandy Rubi MD [address] [place] [address] Social History Tobacco Use Types Packs/Day Years Used Date Smoking Tobacco: Never Passive Smoke Exposure: Never Smokeless Tobacco: Never Depression Answer Date Recorded Patient Health Questionnaire-9 Score 0 12/19/2022 Housing Stability Answer Date Recorded What is your housing situation today? I have sudhashankar ferrer 05/23/[address] you [...] Date Recorded Patient Health Questionnaire-2 Score 0 12/19/2022 Comments Unknown Sex and Gender Information Value Date Recorded Sex Assigned at Female 06/05/2022 10:14 AM EDT Legal Sex Female 10:14 AM EDT Gender Identity Female 06/05/2022 10:14 AM EDT Sexual Orientation Straight 06/05/2022 10 :14 AM EDT documented as of this encounter Plan of Treatment Not on file documented as of this encounter Visit Diagnoses Not on filedocumented in this encounter Additional Health Concerns Assessment Noted Time PHQ-9 Depression Total Score: 0 12/20/19 23 1:06 PM EDT documented as of this encounter Care Teams Grocery Store Manager Relationship Specialty Start Date End Date Sandy Rubi MD [address] [place] [address] PCP - General Family Medicine 08/06/18 documented as of this encounter
--- OUTSIDE RECORDS SUMMARY | 2024-09-30 08:38 | XMS_ITS | Encounter Summary ---
Author Organization [employer] Address [address] [facility] 7t [place] [address] Care Team Providers Care Coremaker Name Role Phone Sandy Rubi MD Primary Care Provider [phone] Encounter Details Date Type Department Care Team ([facility] st Contact Info) Description 12/10/2023 Orders Only [facility] MEDICINE [address] [place], [place] [phone] Sandy Rubi MD [address] [place], [place] [phone] Social History Tobacco Use Types Packs/Day Years [...] documented as of this encounter Care Teams Coremaker Relationship Specialty Start Date End Date Sandy Rubi MD [address] [place] [address] PCP - General Family Medicine 08/06/18 documented as of this encounter
--- OUTSIDE RECORDS SUMMARY | 2024-09-30 08:39 | XMS_ITS | Encounter Summary ---
Author Organization [employer] Address [address] [facility] [address] [place] [address] Care Team Providers Care Try On Baster Name Role Phone Sandy Rubi MD Primary Care Provider [phone] Reason for Visit * Reason Onset Date Comments Chart Prep 09/24/2024 Encounter Details Date Type Department Care Team ([facility] st Contact Info) Description 09/24/2024 Telephone [facility] MEDICINE [address] [place], [place] [phone] Sandy Rubi MD [address] [place], [place] [phone] Chart Prep Social History Tobacco Use Types Packs/Day Years [...] AM EDT documented as of this encounter Miscellaneous Notes * Telephone Encounter - Jemima Chan [place] - 09/24/2024 10:35 AM EST Chart Prep Labs: not applicable Images: sent a message to [employer] information systems security specialist Providencia in regards to US Soft Tissue Upper Back, was not abl to find completed report in [employer], asked for assistance in retrieving results. Vaccines due: Covid Due, Hep A Due, Hep B Due, Flu Due, RSV in Pharmacy Due, and Shingles in pharmacy Due Referrals: Not Applicable Screenings: Not Applicable Overdue care gaps: Sbirt and SDOH documented in this encounter Plan of Treatment Not on file documented as of this encounter Visit Diagnoses Not on filedocumented in this encounter Additional Health Concerns Assessment Noted Time PHQ-9 Depression Total Score: 0 04/14/20 24 9:33 AM EDT documented as of this encounter Care Teams Try On Baster Relationship Specialty Start Date End Date Sandy Rubi MD [address] [place] [address] PCP - General Family Medicine 08/06/18 documented as of this encounter
--- OUTSIDE RECORDS SUMMARY | 2024-09-30 08:39 | XMS_ITS | Encounter Summary ---
Author Organization [employer] Address [address] [facility] 7 [place] [address] Care Team Providers Care Sour Bleaching Pleater Name Role Phone Sandy Rubi MD Primary Care Provider [phone] Encounter Details Date Type Department Care Team (Latest Contact Info) Description 09/29/2024 11:00 AM EST Office Visit [facility] MEDICINE [address] [place] [address] Sandy Rubi MD [address] [place] [address] Mild intermittent asthma without complication (Primary Dx); Primary osteoarthritis involving multiple joints; Acquired hypothyroidism; Vitamin D deficiency; Anemia due to vitamin B12 deficiency, unspecified B12 deficiency type; Screening for lipid disorders; Screening for diabetes mellitus; Metabolic dysfunction-associated steatotic liver disease (MASLD) Social History Tobacco Use Types Packs/Day Years [...] AM EDT documented as of this encounter Last Filed Vital Signs Vital Sign Reading [...] Mass Index 30.8 09/29/2024 10:41 AM EST documented in this encounter Miscellaneous Notes * Assessment & Plan Note - Zelalem Clemente - 09/29/2024 10:58 AM ESTAssociated Problem(s): Vitamin D deficiency - last vitamin D level was normal in Apr 2023 - continue vitamin D supplementation * Assessment & Plan Note - Zelalem Clemente - 09/29/2024 10:57 AM ESTAssociated Problem(s): B12 deficiency anemia - following with Dr. Polanco - continue vitamin B12 IM monthly at [facility] Heme / Onc - continue folic acid supplement * Assessment & Plan Note - Zelalem Clemente - 09/29/2024 10:57 AM ESTAssociated Problem(s): Acquired hypothyroidism Most recent TSH was therapeutic, 0.41 in November 2023 Continue levothyroxine 88 mcg daily. * Assessment & Plan Note - Zelalem Clemente - 09/29/2024 10:57 AM ESTAssociated Problem(s): Osteoarthritis - continue judicious use of APAP * Assessment & Plan Note - Zelalem Clemente - 09/29/2024 10:57 AM ESTAssociated Problem(s): Asthma -Most recent exacerbation, 01/01/19-01/03/19, requiring hospitalization. Treated w/ steroids and azithromycin. 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 -no longer taking inhaled cortisol steroid. -continue using Albuterol prn. -continue montelukast for allergic rhinitis Judicious use of Hydrocodone - Homatropines cough syrup prn when she has bronchitis. documented in this encounter Plan of Treatment Scheduled Orders Name Type Priority Associated Diagnoses Orde r Schedule TSH with Reflex to Free T4 Lab Routine Acquired hypothyroidism Expected: 09/29/2024 (Approximate), Expires: 09/29/2025 Hemoglobin A1c Lab Routine Screening for diabetes mellitus Expected: 09/29/2024 (Approximate), Expires: 09/29/2025 Comprehensive Metabolic Panel Lab Routine Acquired hypothyroidism Metabolic dysfunction-associated steatotic liver disease (MASLD) Expected: 09/29/2024 (Approximate), Expires: 09/29/2025 Lipid Panel with Reflex to Direct LDL Lab Routine Screening for lipid disorders Expected: 09/29/2024 (Approximate), Expires: 09/29/2025 Vitamin D, 25-Hydroxy, Total, Immunoassay Lab Routine Vitamin D deficiency Expected: 09/29/2024 (Approximate), Expires: 09/29/2025 Prothrombin Time-INR Lab Routine Anemia due to vitamin B12 deficiency, unspecified B12 deficiency type Metabolic dysfunction-associated steatotic liver disease (MASLD) Expected: 09/29/2024, Expires: 09/29/2025 documented as of this encounter Visit Diagnoses Diagnosis Mild intermittent asthma without complication- Primary Primary osteoarthritis involving multiple joints Acquired hypothyroidism Unspecified hypothyroidism Vitamin D deficiency Anemia due to vitamin B12 deficiency, unspecified B12 deficiency type Screening for lipid disorders Screening for diabetes mellitus Metabolic dysfunction-associated steatotic liver disease (MASLD) documented in this encounter Additional Health Concerns Assessment Noted Time PHQ-9 Depression Total Score: 0 04/14/20 24 9:33 AM EDT documented as of this encounter Care Teams Sour Bleaching Pleater Relationship Specialty Start Date End Date Sandy Rubi MD [address] [place] [phone] PCP - General Family Medicine 08/06/18 documented as of this encounter
--- OUTSIDE RECORDS SUMMARY | 2024-09-30 08:39 | XMS_ITS | Encounter Summary ---
Author Organization [employer] Address [address] [facility] [address] [place] [address] Care Team Providers Care Hotshot Superintendent Name Role Phone Sandy Rubi MD Primary Care Provider [phone] Reason for Visit * Reason Onset Date Comments imaging 09/24/2024 Encounter Details Date Type Department Care Team ([facility] st Contact Info) Description 09/24/2024 Telephone [facility] MEDICINE [address] [place], [place] [phone] Sandy Rubi MD [address] [place], [place] [phone] imaging Social History Tobacco Use Types Packs/Day Years [...] Encounter - Jemima Chan [place] - 09/24/2024 11:01 AM EST US Soft Tissue Upper Back is under encounter 05/07/2024 US Chest. LB documented in this encounter Plan of Treatment Not on file documented as of this encounter Visit Diagnoses Not on filedocumented in this encounter Additional Health Concerns Assessment Noted Time PHQ-9 Depression Total Score: 0 04/14/20 24 9:33 AM EDT documented as of this encounter Care Teams Hotshot Superintendent Relationship Specialty Start Date End Date Sandy Rubi MD [address] [place] [address] PCP - General Family Medicine 08/06/18 documented as of this encounter
--- OUTSIDE RECORDS SUMMARY | 2024-09-30 08:39 | XMS_ITS ---
Author Organization [facility] Address [address] [place] [address] Care Team Providers Care Acoustical Tile Patternmaker Name Role Phone Elicia PADILLA, Sandy Primary Care Provider Hugo Cain [phone] REASON FOR VISIT ov appt Encounters Encounter Location Date Provider Diagnosis [facility] [address] [facility] [address] [place] [address] 07/03/2023 Hugo Jeong PLAN OF TREATMENT Next Appt Details Provider Name:Hugo Jeong , 12/02/2024 09:10:00 AM, [address], [address], [place], [address],
--- OUTSIDE RECORDS SUMMARY | 2024-09-30 08:39 | XMS_ITS | Encounter Summary ---
Author Organization [employer] Address [address] [facility] 7t [place] [address] Care Team Providers Care Staffing Program Manager Name Role Phone Sandy Rubi MD Primary Care Provider [phone] Encounter Details Date Type Department Care Team (Latest Contact Info) Description 09/29/2024 Travel Social History Tobacco Use Types Packs/Day Years [...] documented as of this encounter Care Teams Staffing Program Manager Relationship Specialty Start Date End Date Sandy Rubi MD [address] [place] [address] PCP - General Family Medicine 08/06/18 documented as of this encounter
--- OUTSIDE RECORDS SUMMARY | 2024-09-30 08:40 | XMS_ITS | Encounter Summary ---
Author Organization [employer] Address [address] [facility] 7t [place] [address] Care Team Providers Care White Lead Filterer Name Role Phone Sandy Rubi MD Primary Care Provider [phone] Encounter Details Date Type Department Care Team (Late st Contact Info) Description 01/10/2023 Orders Only [facility] MEDICINE [address] [place] [address] Sandy Rubi MD [address] [place] [address] Right foot pain (Primary Dx); Primary osteoarthritis involving multiple joints; Plantar fasciitis Social History Tobacco Use Types Packs/Day Years Used Date Smoking Tobacco: Never Smokeless Tobacco: Never Depression Answer Date Recorded Patient Health Questionnaire-9 Score 0 12/19/2022 Depression Answer Date Recorded Patient Health Questionnaire-2 Score 0 12/19/2022 Comments Unknown Sex and Gender Information Value Date Recorded Sex Assigned at Female 06/05/2022 10:14 AM EDT Legal Sex Female 10:14 AM EDT Gender Identity Female 06/05/2022 10:14 AM EDT Sexual Orientation Straight 06/05/2022 10 :14 AM EDT COVID-19 Exposure Response Date Recorded In the last 10 days, have yo u been in contact with someone who was confirmed or suspected to have Coronavirus/COVID-19? No / Unsure 12/19/2022 12:27 PM EDT documented as of this encounter Plan of Treatment Not on file documented as of this encounter Visit Diagnoses Diagnosis Right foot pain- Primary Pain in soft tissues of limb Primary osteoarthritis involving multiple joints Plantar fasciitis Plantar fascial fibromatosis documented in this encounter Additional Health Concerns Assessment Noted Time PHQ-9 Depression Total Score: 0 12/20/19 23 1:06 PM EDT documented as of this encounter Care Teams White Lead Filterer Relationship Specialty Start Date End Date Sandy Rubi MD [address] [place] [address] PCP - General Family Medicine 08/06/18 documented as of this encounter
--- OUTSIDE RECORDS SUMMARY | 2024-09-30 08:40 | XMS_ITS | Encounter Summary ---
Author Organization [employer] Address [address] [facility] [address], [place] [address] Care Team Providers Care Machine Stuffer Automatic Name Role Phone Sandy Rubi MD Primary Care Provider [phone] Reason for Visit * Reason Onset Date Comments Referral 01/10/2023 Encounter Details Date Type Department Care Team ([facility] st Contact Info) Description 01/10/2023 Telephone [facility] MEDICINE [address] [place], [place] [phone] Sandy Rubi MD [address] [place], [place] [phone] Referral Social History Tobacco Use Types Packs/Day Years [...] PM EDT documented as of this encounter Miscellaneous Notes * Telephone Encounter - Torri Ricardo - 01/10/2023 10:22 AM EDT Tc from pt requesting a referral for rheumatology. Pt would like to be sent to [facility] located at [address] [place] [address] [id number] Had a previous referral but she was referred back in 2019. Fax #: [phone] Any questions please contact pt at [phone] documented in this encounter Plan of Treatment Not on file documented as of this encounter Visit Diagnoses Not on filedocumented in this encounter Additional Health Concerns Assessment Noted Time PHQ-9 Depression Total Score: 0 12/20/19 23 1:06 PM EDT documented as of this encounter Care Teams Machine Stuffer Automatic Relationship Specialty Start Date End Date Sandy Rubi MD [address] [place] [address] PCP - General Family Medicine 08/06/18 documented as of this encounter
[2024-09-30 11:56] LABS: INTERNATIONAL NORM RATIO 1.1 (0.9-1.1); Prothrombin Time 12.3 SEC (10.9-12.4)
[2024-09-30 12:04] LABS: Estimated Average Glucose 114 mg/dL; Hemoglobin A1C 111.1286 umol/L; Hemoglobin A1c % 5.6 % (<6.0)
[2024-09-30 12:15] LABS: Alanine Aminotransferase 18 U/L (0-31); Albumin Level 4.1 g/dL (3.5-5.0); Alkaline Phosphatase 123 U/L (39-117); Anion Gap 10 (12-20); Aspartate Amino Transferase 27 U/L (5-31); Bilirubin Total 0.4 mg/dL (0.0-1.0); Blood Urea Nitrogen 11 mg/dL (9-16); Calcium 10.3 mg/dL (8.4-10.2); Carbon Dioxide 26 mmol/L (22-29); Chloride 107 mmol/L (96-108); Cholesterol 123 mg/dL (<200); Estimated Glomerular Filt Rate > 60; Glucose Random 84 mg/dL (60-115); HDL Cholesterol 47 mg/dL (>40); LDL Cholesterol Calculated 69 mg/dL (<100); Potassium 4.2 mmol/L (3.3-5.1); Sodium 139 mmol/L (135-145); Total Protein 8.1 g/dL (6.5-8.0); Triglycerides 38 mg/dL (<150)
[2024-09-30 12:34] LABS: TSH reflex Free T4 1.36 uIU/mL (0.32-4.0)
[2024-09-30 12:54] LABS: Reflex LDLD? No
== END 2024-09-30 08:19 | disposition home or self-care (01) ==
LOC: HO.HHCL 08:18
PROVIDERS: Visit Provider Family Medicine
DX: Z13.1 Encounter for screening for diabetes mellitus (principal); E55.9 Vitamin D deficiency, unspecified; E03.9 Hypothyroidism, unspecified; Z13.220 Encounter for screening for lipoid disorders; D51.9 Vitamin B12 deficiency anemia, unspecified; K76.0 Fatty (change of) liver, not elsewhere classified
CPT/HCPCS: 36415; 80053; 80061; 82306; 83036; 84443; 85610

== ENCOUNTER 2024-10-10 07:33 | Outpatient (REF) | payer MEDICARE, MEDICAID, SELFPAY ==
--- OUTSIDE RECORDS SUMMARY | 2024-10-10 07:36 | XMS_ITS | Encounter Summary ---
Author Organization [employer] Address [address] [facility] 7t [place] [address] Care Team Providers Care Quality Assurance Group Leader Name Role Phone Sandy Rubi MD Primary Care Provider [phone] Encounter Details Date Type Department Care Team ([facility] st Contact Info) Description 12/10/2023 Orders Only [facility] [address] [place], [place] [phone] Sandy Rubi MD [address] [place], [place] [phone] Social History Tobacco Use Types Packs/Day Years [...] as of this encounter Plan of Treatment Upcoming Encounters Date Type Department Care Team (Late st Contact Info) Description 11/10/2024 3:00 PM EDT Office Visit [facility] [address] [place] [address] documented as of this encounter Visit Diagnoses Not on filedocumented in this encounter Additional Health Concerns Assessment Noted Time PHQ-9 Depression Total Score: 0 12/20/19 23 1:06 PM EDT documented as of this encounter Care Teams Quality Assurance Group Leader Relationship Specialty Start Date End Date Sandy Rubi MD [address] [place] [address] PCP - General Family Medicine 08/06/18 documented as of this encounter
--- OUTSIDE RECORDS SUMMARY | 2024-10-10 07:36 | XMS_ITS | Encounter Summary ---
Author Organization [facility] Address [address] [facility] 7t [place] [address] Care Team Providers Care Tin Worker Name Role Phone Sandy Rubi MD Primary Care Provider [phone] Encounter Details Date Type Department Care Team ([facility] st Contact Info) Description 05/25/2023 Orders Only [facility] [address] [place], [place] [phone] Sandy Rubi MD [address] [place] [address] Social History Tobacco Use Types Packs/Day Years [...] Description 11/10/2024 3:00 PM EDT Office Visit [facility] [address] [place] [address] documented as of this encounter Visit Diagnoses Not on filedocumented in this encounter Additional Health Concerns Assessment Noted Time PHQ-9 Depression Total Score: 0 12/20/19 23 1:06 PM EDT documented as of this encounter Care Teams Tin Worker Relationship Specialty Start Date End Date Sandy Rubi MD [address] [place] [address] PCP - General Family Medicine 08/06/18 documented as of this encounter
--- OUTSIDE RECORDS SUMMARY | 2024-10-10 07:36 | XMS_ITS | Clinical Summary ---
Author Organization [employer] Address [address] [place] [address] 7t [place] [address] Care Team Providers Care Cooler Servicer Name Role Phone Shanel Rubi MD Primary Care Provider [phone] Allergies Active Allergy Reactions Criticality Noted Date [...] Active Problems Problem Noted Date Diagnosed Date Obesity (BMI 30.0-34.9) 10/06/2024 Assessment & Plan (10/06/2024 5:40 AM EST): Dietary Recommendations: Fruits, vegetables, whole grains, protein foods, and fat-free or low-fat dairy products are healthy choices. Eat different types of protein foods in your diet. This can include seafood, lean meats, poultry, beans, peas, lentils, nuts, seeds, soy products, and eggs. Limit foods and beverages higher in added sugars, saturated fat, and sodium. Exercise Recommendations: At least 150 minutes of moderate-intensity physical activity per week, or an equivalent combination of moderate- and vigorous-intensity activity History of diverticulitis 10/06/2024 Assessment & Plan (10/06/2024 5:55 AM EST): - diverticulitis of proximal sigmoid colon in Aug 2022 s/p treatment with metronidazole and ciprofloxacin (pt had an adverse reaction with levofloxacin) - diverticulitis of proximal sigmoid colon in May 2024 s/p treatment with metronidazole and levofloxacin (patient tolerated levofloxacin) Mass on back 04/15/2024 Overview (04/15/2024): - [...] knee - Following with Dr. Mitchell at [facility] - s/p right knee partial medial and lateral meniscectomies, chondroplasty, and plica excision on 06/22/23 - continue APAP prn Assessment & Plan (05/15/2023 4:54 PM EDT): - MRI on 04/16/23 showed lateral and medial meniscus tear of right knee - Following with Dr. Mitchell - Anticipating a surgery in June - APAP prn Tear of lateral meniscus of knee 05/15/2023 Assessment & Plan (08/11/2023 6:07 AM EST): - MRI on 04/16/23 showed lateral and medial meniscus tear of right knee - Following with Dr. Mitchell at [facility] - s/p right knee partial medial and lateral meniscectomies, chondroplasty, and plica excision on 06/22/23 - continue APAP prn Assessment & Plan (05/15/2023 4:54 PM EDT): - MRI on 04/16/23 showed lateral and medial meniscus tear of right knee - Following with Dr. Mitchell - Anticipating a surgery in June - APAP prn Leg cramp 05/15/2023 Assessment & Plan (10/06/2024 5:48 AM EST): - periodic check in electrolytes - encourage stretching exercise - normal vascular evaluation - will try magnesium - recommend pickles juice / brine. - will consider trying vitamin K2 Assessment & Plan (05/15/2023 5:15 PM EDT): - periodic check in electrolytes - encourage stretching exercise Chronic pain of right knee 05/15/2023 Assessment & Plan (05/15/2023 5:15 PM EDT): MRI on 04/16/23 showed: 1. Complex tear of the body and posterior horn of the medial meniscus. 2. [id number] patellofemoral arthrosis. 3. Mild medial compartment arthrosis. [...] 02/27/2023 Overview (02/27/2023): - already evaluated by hydro generation manager, last seen in 2019 - no rheumatological abnormality, pt has hypothyroidism - consider repeating lab Assessment & Plan (05/15/2023 5:17 PM EDT): - evaluated by hydro generation manager and was given a reassurance that she does not have rheumatological problem Right foot pain 12/23/2022 Assessment & Plan (04/15/2024 8:58 AM EDT): -Mar 2022 X-ray showed OA -Seen by bookie and Dx plantar fasciitis -Continue ice, stretching exercise, and APAP prn -Continue wearing comfortable shoes. Assessment & Plan (12/23/2022 6:32 PM EDT): -Mar 2022 X-ray showed OA -Seen by bookie and Dx plantar fasciitis -Continue ice, stretching exercise, and APAP prn -Continue wearing comfortable shoes. Diverticulosis of colon 12/18/2022 Assessment & Plan (10/06/2024 5:54 AM EST): - diverticulitis of proximal sigmoid colon in Aug 2022 s/p treatment with metronidazole and ciprofloxacin (pt had an adverse reaction with levofloxacin) - diverticulitis of proximal sigmoid colon in May 2024 s/p treatment with metronidazole and levofloxacin (patient tolerated levofloxacin) Assessment & Plan (05/15/2023 5:09 PM EDT): [...] (05/15/2023 5:08 PM EDT): - Evaluated by Dr. Jeong, GI, last seen in 2021 - continue simethicone prn - continue dicyclomine prn Metabolic dysfunction-associ ated steatotic liver disease (MASLD) 12/18/2022 Assessment & Plan (10/06/2024 5:52 AM EST): - evaluated by GI, and was given reassurance that she does not have cirrhosis - FIB4 index 2.32 - Abdominal US with elastography on 06/05/24: normal liver stiffness - Abdominal CT on 06/03/24: The liver demonstrates a diffusely nodular contour suspicious for cirrhosis - conflicting reports - continue lifestyle modifications - avoid hepatotoxic drugs - follow up with GI as scheduled Assessment & Plan (05/15/2023 5:07 PM EDT): [...] -Mar 2022 X-ray showed OA -Seen by bookie and Dx plantar fasciitis -Continue ice, stretching exercise, and APAP prn -Continue wearing comfortable shoes. Assessment & Plan (12/18/2022 6:12 PM EDT): -Mar 2022 X-ray showed OA -Seen by bookie and Dx plantar fasciitis -Continue ice, stretching [...] - most recent EKG in 2021 in [facility] shows IA 202 ms - review medications - asymptomatic, except dizziness which seems to be BPPV Benign paroxysmal positional vertigo 08/19/2012 Assessment & Plan (05/15/2023 5:23 PM EDT): - continue meclizine prn Gastroesophageal reflux disease 05/06/2012 Assessment & Plan (10/06/2024 5:54 AM EST): -GI: Dr. Jeong -Most recent EGD on 03/30/22, mild gastritis -continue Pantoprazole. -continue simethicone prn gas pain - no longer on famotidine Assessment & Plan (05/15/2023 5:08 PM EDT): [...] famotidine Kidney stone 05/06/2012 Assessment & Plan (10/06/2024 5:57 AM EST): -recurrent Kidney Stones -First right kidney stone diagnosed in December 2012. Treatment Hx: December 2012 cystostopy, ureteroscopy, laser stone ablation, stone extraction, stent placement. January 2013 Right ECSWL May 2013 Right ECSWL May 2019 Right ESWL February 2023 Right ESWL -Followed by [facility] Urology provider, last seen on 06/12/24 -Most recent US in May 2024 showed right kidney stone, nonobstructive, 8 mm. -Continue drinking water 2L / day, with addition of lemon juice -Continue vitamin B6 100 mg daily Assessment & Plan (04/15/2024 8:58 AM EDT): -recurrent Kidney Stones -First right kidney stone diagnosed in December 2012. Treatment Hx: December 2012 cystostopy, ureteroscopy, laser stone ablation, stone extraction, stent placement. January 2013 Right ECSWL May 2013 Right ECSWL May 2019 Right ESWL February 2023 Right ESWL -Followed by [facility] Urology provider, last seen on 02/23/23 -Most [...] ESWL February 2023 Right ESWL -Followed by [facility] Urology provider, last seen on 02/23/23 -Most [...] ECSWL May 2019 Right ESWL -Followed by [facility] Urology provider, last seen on 10/17/22 -Most [...] - continue vitamin B12 IM monthly at [facility] Heme / Onc - continue folic acid supplement Assessment & Plan (11/07/2023 5:26 AM EDT): - following with Dr. Polanco - continue vitamin B12 IM monthly at [facility] Heme / Onc - continue folic acid supplement Assessment & Plan (11/07/2023 5:25 AM EDT): >>ASSESSMENT AND PLAN FOR PERNICIOUS ANEMIA WRITTEN ON 12/18/2022 6:36 PM BY SHANEL RUBI MD - following with Dr. Polanco - continue vitamin B12 IM monthly at [facility] Heme / Onc - continue folic acid supplement Assessment & Plan (11/07/2023 5:25 AM EDT): >>ASSESSMENT AND PLAN FOR PERNICIOUS ANEMIA WRITTEN ON 05/15/2023 5:17 PM BY SHANEL RUBI MD - following with Dr. Polanco - continue vitamin B12 IM monthly at [facility] Heme / Onc - continue folic acid supplement Assessment & Plan (11/07/2023 5:25 AM EDT): >>ASSESSMENT AND PLAN FOR PERNICIOUS ANEMIA WRITTEN ON 08/11/2023 6:09 AM BY SHANEL RUBI MD - following with Dr. Polanco - continue vitamin B12 IM monthly at [facility] Heme / Onc - continue folic acid supplement Resolved Problems Problem Noted Date Diagnosed Date Resolved Date History of adenomatous polyp of colon 12/18/2022 12/18/2022 Left lower quadrant pain 12/15/2022 Restless legs 07/18/2013 05/15/2023 Migraine with aura 03/25/2012 Sinusitis 03/25/2012 05/15/2023 Encounters Date Type Department Care Team Description 10/01/2024 Telephone [facility] [address] [place] [phone] Shanel Rubi MD 09/29/2024 11:00 AM EST Office Visit [facility] [address] [place] [address] Shanel Rubi MD Mild intermittent asthma without complication (Primary Dx); Primary osteoarthritis involving multiple joints; Acquired hypothyroidism; Vitamin D deficiency; Anemia due to vitamin B12 deficiency, unspecified B12 deficiency type; Screening for lipid disorders; Screening for diabetes mellitus; Metabolic dysfunction-associated steatotic liver disease (MASLD); Dietary counseling; Exercise counseling; Class 1 obesity due to excess calories without serious comorbidity with body mass index (BMI) of 30.0 to 30.9 in adult; Obesity (BMI 30.0-34.9); Leg cramp; Diverticulosis of colon; Gastroesophageal reflux disease, unspecified whether esophagitis present; History of diverticulitis; Kidney stone 09/29/2024 Travel 09/24/2024 Telephone [facility] [address] [place] [address] Shanel Rubi MD imaging 09/24/2024 Telephone [facility] [address] [place] [address] Shanel Rubi MD Chart Prep 07/25/2024 Telephone [facility] [address] [place], [place] [phone] Monse Silva [place] august recall from Last 3 Months Immunizations Name Administration [...] your housing situation today? I have sudha sing 05/23/[address] you li [...] 09/29/2024 10:41 AM EST Plan of Treatment Upcoming Encounters Date Type Department Care Team (Late st Contact Info) Description 11/10/2024 3:00 PM EDT Office Visit [facility] [address] [place] [phone] Health Maintenance Due Date Last Done Comments [...] Additional history exists SDOH Screening 10/28/2024 10/29/2023 Depression Screening 04/14/2025 04/14/2024, 04/14/20 Alcohol/Substance Use Screening 09/29/2025 09/29/2024 Tobacco Screening 09/29/2025 09/29/2024 Colonoscopy 03/10/2028 03/10/2023 Colorectal Cancer Screening 03/10/2028 Lipid Panel 09/30/2029 09/30/2024, 11/04, 01/09/2023, Additional history exists DTaP/Tdap/Td Vaccines (3 - Td or Tdap) [...] Procedure Name Priority Date/Time Associated Diagnosis Comments PROTHROMBIN TIME-INR Routine 09/30/2024 8:22 AM EST Anemia due to vitamin B12 deficiency, unspecified B12 deficiency type Metabolic dysfunction-associate d steatotic liver disease (MASLD) VITAMIN D,25-OH,TOTAL,IA Routine 09/30/2024 8:22 AM EST Vitamin D deficiency LIPID PANEL WITH REFLEX TO DIRECT LDL Routine 09/30/2024 8:22 AM EST Screening for lipid disorders COMPREHENSIVE METABOLIC PANEL Routine 09/30/2024 8:22 AM EST Acquired hypothyroidism Metabolic dysfunction-associate d steatotic liver disease (MASLD) HEMOGLOBIN A1C Routine 09/30/2024 8:22 AM EST Screening for diabetes mellitus TSH W/REFLEX TO FT4 Routine 09/30/2024 8 :22 AM EST Acquired hypothyroidism HM COLONOSCOPY Routine 03/10/2023 ZZZ HISTORICAL HEPATITIS A,B,C PROFILE Routine 05/20/2021 9:15 AM EDT from Last 3 Months or Most Recently Relevant to Health Maintenance Results * Vitamin D, 25-Hydroxy, Total, Immunoassay (09/30/2024 8:22 AM EST) Vitamin D 25-OH Total 43.0 >30 ng/mL [facility] Comment:Health Based Referen ce Values*< 20 ng/mL Alvgpkczd93-08 ng/mL Insufficient> 30 ng/mL Sufficient*Blaine RUEDA. N Engl J Med. 2007;357:266-280Care must be taken in interpreting Vitamin D results fromdifferent laboratories and methodologies. Published datademonstrated that results from patients undergoinghemodialysis may show a negative bias when tested withvarious automated 25-OH vitamin D assays when compared toLC-MS/MS.When testing samples from patients whose predominant form ofVitamin D is Vitamin D2, such as patients receiving VitaminD2 supplementation, results that are subtherapeutic shouldbe confirmed with another method such as LC-MS/MS. Blood Venous blood specimen / Unknown 09/30/2024 8:22 AM EST 09/30/2024 11:35 AM EST Shanel Rubi MD LAB BLOOD ORDERABLES Final Resul t Performing Organization Address City/[facility] Co de Phone Number [facility] [address] [place] [phone] * TSH with Reflex to Free T4 (09/30/2024 8:22 AM EST) TSH reflex Free T4 1.36 0.32 - 4.0 uIU/mL [facility] Blood 09/30/2024 8:22 AM EST 09/30/2024 11:35 AM EST us Shanel Rubi MD LAB BLOOD ORDERABLES Final Resul t Performing Organization Address [facility] Co de Phone Number [facility] [address] [place] [phone] * Lipid Panel with Reflex to Direct LDL (09/30/2024 8:22 AM EST) Triglycerides 38 <150 mg/dL [facility] Comment:Desirable Triglyceri de: less than 150 mg/dLBorderline High Triglyceride 150-199 mg/dLHigh Triglyceride: 200-499 mg/dLVery High Triglyceride: greater than or equal to 5OO mg/dL Cholesterol 123 <200 mg/dL [facility] Comment:Desirable Cholestero l: less than 200 mg/dLBorderline High Cholesterol: 200-239 mg/dLHigh Cholesterol: greater than 239 mg/dL LDL Cholesterol Calculated 69 <100 mg/dL [facility] Comment:Desirable LDL: less than 100 mg/dLNear Optimal/Above Optimal LDL: 110- 129 mg/dLBorderline High LDL: 130-159 mg/dLHigh LDL: 160-189 mg/dLVery High LDL: greater than or equal to 190 mg/dL HDL Cholesterol 47 >40 mg/dL [facility] Comment:Desirable HDL: great er than 40 mg/dL Note: This HDL assay may give artificially low results in patients with liver disease. Blood 09/30/2024 8:22 AM EST 09/30/2024 11:35 AM EST Shanel Rubi MD LAB BLOOD ORDERABLES Final Resul t Performing Organization Address City/[facility]/ZIP Co de Phone Number [facility] [address] [place] [address] [phone] * Prothrombin Time-INR (09/30/2024 8:22 AM EST) Prothrombin Time 12.3 10.9 - 12.4 SEC [facility] INTERNATIONAL NORM RATIO 1.1 0.9 - 1.1 [facility] Comment:INTERNATIONAL NORMAL IZED RATIO (INR) REFERENCE RANGES Reference RangeFor patients not on anticoagulant therapy: 0.9 - 1.1INR ranges for oral anticoagulanttherapy:For prevention and treatment of venous thrombosis and pulmonary embolism: 2.0 - 3.0For acute myocardial infarction with aspirin therapy: 2.0 - 3.0For acute myocardial infarction without aspirin therapy: 3.0 - 4.0For patients with mechanical prosthetic heart valves: 2.5 - 3.5 Blood Venous blood specimen / Unknown 09/30/2024 8:22 AM EST 09/30/2024 11:35 AM EST us Shanel Rubi MD LAB BLOOD ORDERABLES Final Resul t Performing Organization Address [facility] Co de Phone Number [facility] [address] [place] [phone] [phone] * Hemoglobin A1c (09/30/2024 8:22 AM EST) Hemoglobin A1c 5.6 <6.0 % [facility] Comment:Hemoglobin A1C Refer ence Range Adults: 4.8 - 6.0 % Non diabetic: < 6.0 % Goal: < 7.0 %Additional Action Suggested: > 8.0 %Note: Hemoglobin A1c results are invalid for patients with abnormal amounts of HbF. Blood transfusions may impact the HbA1c concentration in the patient sample. Estimated Average Glucose 114 mg/dL [facility] Comment:eAG = Estimated ave rage glucose which is %A1C expressed asaverage glucose, using the formula of the [id number] Glucose study (ADAG), Diabetes Care, Vol.31,#8,2007 Blood Venous blood specimen / Unknown 09/30/2024 8:22 AM EST 09/30/2024 11:35 AM EST us Shanel Rubi MD LAB BLOOD ORDERABLES Final Resul t [facility] [address] [place] [address] [phone] * (ABNORMAL) Comprehensive Metabolic Panel (09/30/2024 8:22 AM EST) Sodium 139 135 - 145 mmol/L [facility] Potassium 4.2 3.3 - 5.1 mmol/L [facility] Chloride 107 96 - 108 mmol/L [facility] Carbon Dioxide 26 22 - 29 mmol/L [facility] Anion Gap 10(L) 12 - 20 [facility] Urea Nitrogen (BUN) 11 9 - 16 mg/dL [facility] Creatinine, Serum 0.69 0.5 - 1.4 mg/dL [facility] Estimated Glomerular Filt Rate >60 [facility] Comment:Chronic Kidney Disea se: Estimated GFR < 60 mL/min/1.69q7Izbmkk Kidney Disease: Estimated GFR < 15 mL/min/1.73m2 Glucose 84 60 - 115 mg/dL [facility] Calcium 10.3(H) 8.4 - 10.2 mg/dL [facility] Bilirubin, Total 0.4 0.0 - 1.0 mg/dL [facility] Aspartate Amino Transferase 27 5 - 31 U/L [facility] Alanine Aminotransferase 18 0 - 31 U/L [facility] Total Protein 8.1(H) 6.5 - 8.0 g/dL [facility] Albumin Level 4.1 3.5 - 5.0 g/dL [facility] Alkaline Phosphatase 123(H) 39 - 117 U/L [facility] Blood Venous blood specimen / Unknown 09/30/2024 8:22 AM EST 09/30/2024 11:35 AM EST Shanel Rubi MD LAB BLOOD ORDERABLES Final Resul t Performing Organization Address City/[facility]/ZIP Co de Phone Number [facility] [address] [place] [phone] * Hm Colonoscopy (03/10/2023) Colonoscopy Normal [...] acute HCV infection. 05/20/2021 9:15 AM EDT Hugo Jeong MD HISTORICAL/NON ORDERABLE LABS Fi nal Result Performing Organization Address City/[facility]/ZIP Co de Phone Number [facility] [address] from Last 3 Months or Most Recently Relevant to Health Maintenance Insurance [facility] STANDARD MEDICARE Care Teams Cooler Servicer Relationship Specialty Start Date End Date Shanel Rubi MD [address] [place] [phone] PCP - General Family Medicine 08/06/18
--- OUTSIDE RECORDS SUMMARY | 2024-10-10 07:36 | XMS_ITS | Encounter Summary ---
Author Organization [employer] Address [address] [facility] 7t [place] [address] Care Team Providers Care Chrome Worker Name Role Phone Sandy Rubi MD Primary Care Provider [phone] Encounter Details Date Type Department Care Team ([facility] st Contact Info) Description 10/01/2024 Telephone [facility] [address] [place], [place] [phone] Sandy Rubi MD [address] [place] [address] Social History Tobacco Use Types Packs/Day Years [...] encounter Miscellaneous Notes * Telephone Encounter - Diana Faust - 10/01/2024 10:59 AM EST Placed outbound call to patient for Annual Wellness Visit outreach. Patient's name and were confirmed. Patient educated on the purpose of Medicare Annual Wellness Visits and is agreeable to an appointment with provider. Insurance verified prior to scheduling. Patient scheduled for AWV appointment on 11/10/24 at 3 PM with Seema. Patient advised to bring to appointment a photo id and insurance card. Also advised to bring in all medications, including [id number], vitamins, or supplements and any copies of Advance Directives and Health Care Proxy forms. Patient provided with education on contacting the Health Center with any questions or concerns prior to the scheduled appointment. Patient provided with after-hours line for [facility], , which offer night time triage service and option to transfer to manager of investigations provider if needed. documented in this encounter Plan of Treatment Upcoming Encounters Date Type Department Care Team (Late st Contact Info) Description 11/10/2024 3:00 PM EDT Office Visit [facility] [address] [place] [address] documented as of this encounter Visit Diagnoses Not on filedocumented in this encounter Additional Health Concerns Assessment Noted Time PHQ-9 Depression Total Score: 0 04/14/20 24 9:33 AM EDT documented as of this encounter Care Teams Chrome Worker Relationship Specialty Start Date End Date Sandy Rubi MD [address] [place] [address] PCP - General Family Medicine 08/06/18 documented as of this encounter
--- OUTSIDE RECORDS SUMMARY | 2024-10-10 07:36 | XMS_ITS ---
Author Organization [facility] Address [address] [place] [address] Care Team Providers Care Biscuitware Brusher Name Role Phone Elicia PADILLA, Sandy Primary Care Provider Hugo Cain [phone] REASON FOR VISIT Patient presents today for gerd Encounters Encounter Location Date Provider Diagnosis [facility] [address] [place] [address] 07/03/2023 Hugo Jeong Plan Of Treatment Next Appt Details Provider Name:Hugo Jeong , 12/02/2024 09:10:00 AM, [address], [address], [place], [address], Progress Notes * JIM RENTERIA EDOB:1950 (73 yo F)Acc No.[id number]:07/03/2023 Progress Notes Patient:?JIM RENTERIA Provider:?Hugo Jeong MD :1950???Age:72 Y???Sex:Female D ate:07/03/2023 Address:[address] [place] [address] Pcp:Sandy Rubi MD Subjective: * Chief Complaints: * ???1. Patient presents today for gerd. * Medical History:? Objective: * Vitals:? Assessment: Plan: * Treatment: * * The named appointment provid er may or may not be the originator of this progress note, and it is not deemed complete until electronically signed by the appointment provider. Sign off status: Pending * Provider:?Hugo Jeong MD Date:? 023 Generated for Shreyas kern/Hanh/Priyanka on:?10/10/2024 07:36 AM EST
--- OUTSIDE RECORDS SUMMARY | 2024-10-10 07:37 | XMS_ITS | Encounter Summary ---
Author Organization [employer] Address [address] [place] [address] Care Team Providers Care Tape Recorder Repairer Name Role Phone Sandy Rubi MD Primary Care Provider [phone] Encounter Details Date Type Department Care Team (Latest Contact Info) Description 09/29/2024 11:00 AM EST Office Visit [facility] [address] [place], [place] [phone] Sandy Rubi MD [address] [place] [address] Mild intermittent asthma without complication (Primary Dx); [...] esophagitis present; History of diverticulitis; Kidney stone Social History Tobacco Use Types Packs/Day Years [...] 10:41 AM EST documented in this encounter Progress Notes * Sandy Rubi MD - 09/29/2024 11:00 AM EST Cinthia Esposito is a 73 y.o. female who has hypothyroidism, history of recurrent kidney stones, LCIS of breast in remission, and B-cell lymphoma in remission, and patient presents for follow up of chronic conditions. Background: Our last encounter was 04/14/2024. Interval history: Seen in [facility] on 06/03/[address] showed acute diverticulitis of the proximal sigmoid colon, bilateral nonobstructive kidney stones, Dx diverticulitis. Rx metronidazole and levofloxacin. 06/05/24 Abdominal US with liver elastography - Liver elastography: Measurements are consistent with a high probability of normal liver stiffness. - Suspect 0.8 cm, nonobstructing right mid renal collecting system stone. - Gallbladder not visualized, consistent with reported history of prior surgical removal. Seen by [facility] on 06/12/24 for follow up of kidney stones. No urinary complaints. Continue adding 1 oz of lemon juice to water daily and adequate hydration. Patient declined further work-up for nephrolithiasis. Follow up US and office visit in 1 year. Seen in the walk-in clinic on 07/07/24 for sore throat and runny nose. Dx viral pharyngitis. Recommended supportive care. Seen by Dr. Polanco on 07/21/24 for follow up of LCIS of L breast, B12 deficiency anemia, and lymphoma. Referred back to Dr. Jeong for colonoscopy. Today: The pt reports issues with her legs and her feet. She perceives it is circulation problem. However,patient was evaluated by vascular specialist, and was given reassurance. She experiences stiff legsmaking it difficult to move like getting out of bed at night. She continues to have leg cramps, andshe is willing to try magnesium today. She saw her urologist regarding her kidney stones. She reports having her procedure already. They removed one, but there is still stone in the kidney. She is drinking plenty of water to see if it would pass on its own. She reports how she cut her finger, and blood would not stop coming out. She says she put salt on it to try and stop it but nothing helped. She is confused about her liver. When she goes to ED, she was told that she has cirrhosis. Her GI told her that she does not have cirrhosis. She is having an upcoming appointment with Dr. Jeong, her GI, soon. She reports using her inhaler occasionally as needed. Review of Systems Constitutional: Negative for activity change, appetite change and fever. Respiratory: Negative for shortness of breath. Cardiovascular: Negative for chest pain. Objective Vitals: 09/29/24 1041 BP: 122/71 BP Location: Left arm Patient Position: Sitting BP Cuff Size: Adult Pulse: 75 Resp: 20 Temp: 97.8 ??F (36.6 ??C) TempSrc: Temporal SpO2: 98% Weight: 163 lb (73.9 kg) Height: 5' 1 (1.549 m) Physical Exam Constitutional: General: She is not in acute distress. Appearance: Normal appearance. She is not ill-appearing. HENT: Head: Normocephalic and atraumatic. Mouth/Throat: Mouth: Mucous membranes are moist. Eyes: Extraocular Movements: Extraocular movements intact. Pupils: Pupils are equal, round, and reactive to light. Cardiovascular: Rate and Rhythm: Normal rate and regular rhythm. Heart sounds: No murmur heard. Pulmonary: Effort: Pulmonary effort is normal. No respiratory distress. Breath sounds: Normal breath sounds. No wheezing or rhonchi. Skin: General: Skin is warm. Neurological: Mental Status: She is alert. Mental status is at baseline. Psychiatric: Mood and Affect: Mood normal. Results: Lab Results Component Value Date NA 139 09/30/2024 K 4.2 09/30/2024 CL 107 09/30/2024 CO2 26 09/30/2024 BUN 11 09/30/2024 CREATININE 0.69 09/30/2024 CRCLCALCPH 74.9 09/27/2023 EGFR >60 09/30/2024 GLUCOSE 84 09/30/2024 TOTALBILIRUB 0.4 09/30/2024 AST 27 09/30/2024 ALT 18 09/30/2024 TOTPROTEIN 8.1 (H) 09/30/2024 ALB 4.1 09/30/2024 ALP 123 (H) 09/30/2024 Lab Results Component Value Date TRIG 38 09/30/2024 CHOL 123 09/30/2024 LDLCHOLCAL 69 09/30/2024 HDL 47 09/30/2024 Lab Results Component Value Date HGBA1C 5.6 09/30/2024 Lab Results Component Value Date WBC 5.1 12/26/2023 HGB 10.3 (L) 12/26/2023 HCT 33.1 (L) 12/26/2023 PLT 173 12/26/2023 MCV 88.0 12/26/2023 The ASCVD Risk score (Rashawn KOEHLER, et al., 2019) failed to calculate for the following reasons: The valid total cholesterol range is 130 to 320 mg/dL FIB-4 Calculation: 2.32 at 12/26/2023 12:59 PM Calculated from: SGOT/AST: 23 U/L at 12/26/2023 12:59 PM SGPT/ALT: 18 U/L at 12/26/2023 12:59 PM Platelets: 173 X10*3/uL at 12/26/2023 12:59 PM Age: 73 years Assessment/Plan Problem List Items Addressed This Visit Acquired hypothyroidism Most recent TSH was therapeutic, 0.41 in November 2023 Continue levothyroxine 88 mcg daily. Relevant Orders TSH with Reflex to Free T4 (Completed) Comprehensive Metabolic Panel (Completed) Gastroesophageal reflux disease -GI: Dr. Jeong -Most recent EGD on 03/30/22, mild gastritis -continue Pantoprazole. -continue simethicone prn gas pain - no longer on famotidine Kidney stone -recurrent Kidney Stones -First right kidney stone diagnosed in December 2012. Treatment Hx: December 2012 cystostopy, ureteroscopy, laser stone ablation, stone extraction, stent placement. January 2013 Right ECSWL May 2013 Right ECSWL May 2019 Right ESWL February 2023 Right ESWL -Followed by [facility] provider, last seen on 06/12/24 -Most recent US in May 2024 showed right kidney stone, nonobstructive, 8 mm. -Continue drinking water 2L / day, with addition of lemon juice -Continue vitamin B6 100 mg daily Obesity Osteoarthritis - continue judicious use of APAP Vitamin D deficiency - last vitamin D level was normal in Apr 2023 - continue vitamin D supplementation Relevant Orders Vitamin D, 25-Hydroxy, Total, Immunoassay (Completed) Diverticulosis of colon - diverticulitis of proximal sigmoid colon in Aug 2022 s/p treatment with metronidazole and ciprofloxacin (pt had an adverse reaction with levofloxacin) - diverticulitis of proximal sigmoid colon in May 2024 s/p treatment with metronidazole and levofloxacin (patient tolerated levofloxacin) Metabolic dysfunction-associated steatotic liver disease (MASLD) - evaluated by GI, and was given reassurance that she does not have cirrhosis - FIB4 index 2.32 - Abdominal US with elastography on 06/05/24: normal liver stiffness - Abdominal CT on 06/03/24: The liver demonstrates a diffusely nodular contour suspicious for cirrhosis - conflicting reports - continue lifestyle modifications - avoid hepatotoxic drugs - follow up with GI as scheduled Relevant Orders Comprehensive Metabolic Panel (Completed) Prothrombin Time-INR (Completed) Asthma - Primary -Most recent exacerbation, 01/01/19-01/03/19, requiring hospitalization. Treated w/ steroids and azithromycin. 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 -no longer taking inhaled cortisol steroid. -continue using Albuterol prn. -continue montelukast for allergic rhinitis Judicious use of Hydrocodone - Homatropines cough syrup prn when she has bronchitis. Leg cramp - periodic check in electrolytes - encourage stretching exercise - normal vascular evaluation - will try magnesium - recommend pickles juice / brine. - will consider trying vitamin K2 B12 deficiency anemia - following with Dr. Polanco - continue vitamin B12 IM monthly at [facility] - continue folic acid supplement Relevant Orders Prothrombin Time-INR (Completed) Obesity (BMI 30.0-34.9) Dietary Recommendations: Fruits, vegetables, whole grains, protein foods, and fat-free or low-fat dairy products are healthychoices. Eat different types of protein foods in your diet. This can include seafood, lean meats, poultry, beans, peas, lentils, nuts, seeds, soy products, and eggs. Limit foods and beverages higher in added sugars, saturated fat, and sodium. Exercise Recommendations: At least 150 minutes of moderate-intensity physical activity per week, or an equivalent combinationof moderate- and vigorous-intensity activity History of diverticulitis - diverticulitis of proximal sigmoid colon in Aug 2022 s/p treatment with metronidazole and ciprofloxacin (pt had an adverse reaction with levofloxacin) - diverticulitis of proximal sigmoid colon in May 2024 s/p treatment with metronidazole and levofloxacin (patient tolerated levofloxacin) Other Visit Diagnoses Screening for lipid disorders Relevant Orders Lipid Panel with Reflex to Direct LDL (Completed) Screening for diabetes mellitus Relevant Orders Hemoglobin A1c (Completed) Dietary counseling Exercise counseling Allergies Allergen Reactions Penicillins Rash Other reaction(s): HIVES, BLACK SPOTS Aspirin Current Outpatient Medications Medication Instructions acetaminophen (Tylenol) 325 MG capsule 1-2 cap po tid prn pain albuterol 2.5 mg, Nebulization, Every 4 hours PRN Bisacodyl EC 5 MG EC tablet TAKE 2 TABLETS BY MOUTH QT 3:00PM AND 7:00PM cetirizine (ZYRTEC) 10 mg, Oral, Daily cholecalciferol (VITAMIN D3) 25 mcg clotrimazole (Mycelex) 10 MG almaz TAKE 1 TABLET BY MOUTH 4 TIMES A DAY ALLOW TO DISSOLVE SLOWLY cyanocobalamin (Vitamin B-12) 1000 MCG/ML injection 1 mL, Intramuscular cyclobenzaprine (FLEXERIL) 10 mg, Oral, 3 times daily dicyclomine (Bentyl) 10 MG capsule TAKE 1-2 CAPSULES BY MOUTH EVERY 6 HOURS NEEDED FOR CRAMPS/DISCOMFORT HYDROcodone Bit-Homatrop MBr 5-1.5 MG/5ML solution 5 mL, Oral, Every 4 hours PRN levothyroxine (SYNTHROID, LEVOXYL) 88 mcg, Oral, Daily before breakfast lidocaine (Lidoderm) 5 % patch 1 patch, Apply externally, Daily, Remove & discard patch within 12 hours or as directed by MD. magnesium oxide (MAG-OX) 400 mg, Oral, Daily meclizine (ANTIVERT) 25 mg, Oral, 3 times daily PRN montelukast (SINGULAIR) 10 mg, Oral, Every evening pantoprazole (ProtoNix) 40 MG EC tablet TAKE 1 TABLET BY MOUTH TWICE A DAY FOR HEARTBURN AND PJULPA34 DAYS simethicone (Mylicon,Gas-X) 180 MG capsule Take 1 capsule by mouth every 6 hours as needed for gas pain Ventolin HFA 108 (90 Base) MCG/ACT inhaler INHALE 2 PUFF BY MOUTH EVERY 4 - 6 HOURS NEEDED FOR DIFFICULTY BREATHING, 4 TIMES / DAY Follow-up: 4 mo or sooner if any problem arises. Scribe Attestation: Zelalem Molina, am serving as a scribe to document services personally performed by Sandy Rubi MD,based on the patient's response to questions by provider and provides statements to me. Physicians Attestation: Sandy Molina, have reviewed the information by the scribe, Robin Rojo, for accuracy and agree with its content. documented in this encounter Miscellaneous Notes * Assessment & Plan Note - Sandy Rubi MD - 10/06/2024 5:57 AM ESTAssociated Problem(s): Kidney stone -recurrent Kidney Stones -First right kidney stone diagnosed in December 2012. Treatment Hx: December 2012 cystostopy, ureteroscopy, laser stone ablation, stone extraction, stent placement. January 2013 Right ECSWL May 2013 Right ECSWL May 2019 Right ESWL February 2023 Right ESWL -Followed by [facility] provider, last seen on 06/12/24 -Most recent US in May 2024 showed right kidney stone, nonobstructive, 8 mm. -Continue drinking water 2L / day, with addition of lemon juice -Continue vitamin B6 100 mg daily * Assessment & Plan Note - Sandy Rubi MD - 10/06/2024 5:55 AM ESTAssociated Problem(s): History of diverticulitis - diverticulitis of proximal sigmoid colon in Aug 2022 s/p treatment with metronidazole and ciprofloxacin (pt had an adverse reaction with levofloxacin) - diverticulitis of proximal sigmoid colon in May 2024 s/p treatment with metronidazole and levofloxacin (patient tolerated levofloxacin) * Assessment & Plan Note - Sandy Rubi MD - 10/06/2024 5:54 AM ESTAssociated Problem(s): Gastroesophageal reflux disease -GI: Dr. Jeong -Most recent EGD on 03/30/22, mild gastritis -continue Pantoprazole. -continue simethicone prn gas pain - no longer on famotidine * Assessment & Plan Note - Sandy Rubi MD - 10/06/2024 5:54 AM ESTAssociated Problem(s): Diverticulosis of colon - diverticulitis of proximal sigmoid colon in Aug 2022 s/p treatment with metronidazole and ciprofloxacin (pt had an adverse reaction with levofloxacin) - diverticulitis of proximal sigmoid colon in May 2024 s/p treatment with metronidazole and levofloxacin (patient tolerated levofloxacin) * Assessment & Plan Note - Sandy Rubi MD - 10/06/2024 5:52 AM ESTAssociated Problem(s): Metabolic dysfunction-associated steatotic liver disease (MASLD) - evaluated by GI, and was given reassurance that she does not have cirrhosis - FIB4 index 2.32 - Abdominal US with elastography on 06/05/24: normal liver stiffness - Abdominal CT on 06/03/24: The liver demonstrates a diffusely nodular contour suspicious for cirrhosis - conflicting reports - continue lifestyle modifications - avoid hepatotoxic drugs - follow up with GI as scheduled * Assessment & Plan Note - Sandy Rubi MD - 10/06/2024 5:48 AM ESTAssociated Problem(s): Leg cramp - periodic check in electrolytes - encourage stretching exercise - normal vascular evaluation - will try magnesium - recommend pickles juice / brine. - will consider trying vitamin K2 * Assessment & Plan Note - Sandy Rubi MD - 10/06/2024 5:40 AM ESTAssociated Problem(s): Obesity (BMI 30.0-34.9) Dietary Recommendations: Fruits, vegetables, whole grains, protein foods, and fat-free or low-fat dairy products are healthychoices. Eat different types of protein foods in your diet. This can include seafood, lean meats, poultry, beans, peas, lentils, nuts, seeds, soy products, and eggs. Limit foods and beverages higher in added sugars, saturated fat, and sodium. Exercise Recommendations: At least 150 minutes of moderate-intensity physical activity per week, or an equivalent combinationof moderate- and vigorous-intensity activity * Assessment & Plan Note - Zelalem Clemente - 09/29/2024 10:58 AM ESTAssociated Problem(s): Vitamin D deficiency - last vitamin D level was normal in Apr 2023 - continue vitamin D supplementation * Assessment & Plan Note - Zelalem Clemente - 09/29/2024 10:57 AM ESTAssociated Problem(s): B12 deficiency anemia - following with Dr. Polanco - continue vitamin B12 IM monthly at [facility] - continue folic acid [...] Description 11/10/2024 3:00 PM EDT Office Visit [facility] [address] [place] [address] documented as of this encounter Procedures Procedure Name Priority Date/Time Associated Diagnosis Comments VITAMIN D,25-OH,TOTAL,IA Routine 09/30/2024 8:22 AM EST Vitamin D deficiency TSH W/REFLEX TO FT4 Routine 09/30/2024 8 :22 AM EST Acquired hypothyroidism LIPID PANEL WITH REFLEX TO DIRECT LDL Routine 09/30/2024 8:22 AM EST Screening for lipid disorders PROTHROMBIN TIME-INR Routine 09/30/2024 8:22 AM EST Anemia due to vitamin B12 deficiency, unspecified B12 deficiency type Metabolic dysfunction-associate d steatotic liver disease (MASLD) HEMOGLOBIN A1C Routine 09/30/2024 8:22 AM EST Screening for diabetes mellitus COMPREHENSIVE METABOLIC PANEL Routine 09/30/2024 8:22 AM EST Acquired hypothyroidism Metabolic dysfunction-associate d steatotic liver disease (MASLD) documented in this encounter Results * Prothrombin Time-INR (09/30/2024 8:22 AM EST) Prothrombin Time 12.3 10.9 - 12.4 SEC [facility] INTERNATIONAL NORM RATIO 1.1 0.9 - 1.1 [facility] Comment:INTERNATIONAL NORMAL IZED RATIO (INR) REFERENCE [...] AM EST 09/30/2024 11:35 AM EST us Sandy Rubi MD LAB BLOOD ORDERABLES Final Resul t [facility] [address] [place] [phone] * Vitamin D, 25-Hydroxy, Total, Immunoassay (09/30/2024 8:22 AM EST) Vitamin D 25-OH Total 43.0 >30 ng/mL [facility] Comment:Health Based Referen ce Values*< 20 ng/mL Xbeythrty44-45 ng/mL Insufficient> 30 ng/mL Sufficient*Blaine RUEDA. N [...] AM EST 09/30/2024 11:35 AM EST us Sandy Rubi MD LAB BLOOD ORDERABLES Final Resul t Performing Organization Address City/[facility]/ZIP Co de Phone Number [facility] [address] [place] [phone] * Lipid Panel with Reflex to Direct LDL (09/30/2024 8:22 AM EST) Triglycerides 38 <150 mg/dL [facility] Comment:Desirable Triglyceri de: less than 150 mg/dLBorderline High Triglyceride 150-199 mg/dLHigh Triglyceride: 200-499 mg/dLVery High Triglyceride: greater than or equal to 5OO mg/dL Cholesterol 123 <200 mg/dL [facility] Comment:Desirable Cholestero l: less than 200 mg/dLBorderline High Cholesterol: 200-239 mg/dLHigh Cholesterol: greater than 239 mg/dL LDL Cholesterol Calculated 69 <100 mg/dL [facility] Comment:Desirable LDL: less than 100 mg/dLNear Optimal/Above Optimal LDL: 110- 129 mg/dLBorderline High LDL: 130-159 mg/dLHigh LDL: 160-189 mg/dLVery High LDL: greater than or equal to 190 mg/dL HDL Cholesterol 47 >40 mg/dL [facility] Comment:Desirable HDL: great er than 40 mg/dL Note: This HDL assay may give artificially low results in patients with liver disease. Blood 09/30/2024 8:22 AM EST 09/30/2024 11:35 AM EST us Sandy Rubi MD LAB BLOOD ORDERABLES Final Resul t [facility] [address] [place], [place] [phone] * (ABNORMAL) Comprehensive Metabolic Panel (09/30/2024 8:22 AM EST) Sodium 139 135 - 145 mmol/L [facility] Potassium 4.2 3.3 - 5.1 mmol/L [facility] Chloride 107 96 - 108 mmol/L [facility] Carbon Dioxide 26 22 - 29 mmol/L [facility] Anion Gap 10(L) 12 - 20 [facility] Urea Nitrogen (BUN) 11 9 - 16 mg/dL [facility] Creatinine, Serum 0.69 0.5 - 1.4 mg/dL [facility] Estimated Glomerular Filt Rate >60 [facility] Comment:Chronic Kidney Disea se: Estimated GFR < 60 mL/min/1.90y8Oozsig Kidney Disease: Estimated GFR < 15 mL/min/1.73m2 Glucose 84 60 - 115 mg/dL [facility] Calcium 10.3(H) 8.4 - 10.2 mg/dL [facility] Bilirubin, Total 0.4 0.0 - 1.0 mg/dL [facility] Aspartate Amino Transferase 27 5 - 31 U/L [facility] Alanine Aminotransferase 18 0 - 31 U/L [facility] Total Protein 8.1(H) 6.5 - 8.0 g/dL [facility] Albumin Level 4.1 3.5 - 5.0 g/dL [facility] Alkaline Phosphatase 123(H) 39 - 117 U/L [facility] Blood Venous blood specimen / Unknown 09/30/2024 8:22 AM EST 09/30/2024 11:35 AM EST us Sandy Rubi MD LAB BLOOD ORDERABLES Final Resul t Performing Organization Address [facility]/ZIP Co de Phone Number [facility] [address] [place] [phone] * Hemoglobin A1c (09/30/2024 8:22 AM EST) Hemoglobin A1c 5.6 <6.0 % [facility] Comment:Hemoglobin A1C Refer ence Range Adults: 4.8 - 6.0 % Non diabetic: < 6.0 % Goal: < 7.0 %Additional Action Suggested: > 8.0 %Note: Hemoglobin A1c results are invalid for patients with abnormal amounts of HbF. Blood transfusions may impact the HbA1c concentration in the patient sample. Estimated Average Glucose 114 mg/dL [facility] Comment:eAG = Estimated ave rage glucose which is %A1C expressed asaverage glucose, using the formula of the T2A-PyesinmSsmmvpc Glucose study (ADAG), Diabetes Care, Vol.31,#8,Mar. 2007 Blood Venous blood specimen / Unknown 09/30/2024 8:22 AM EST 09/30/2024 11:35 AM EST us Sandy Rubi MD LAB BLOOD ORDERABLES Final Resul t Performing Organization Address [facility]/ZIP Co de Phone Number [facility] [address] [place] [phone] * TSH with Reflex to Free T4 (09/30/2024 8:22 AM EST) TSH reflex Free T4 1.36 0.32 - 4.0 uIU/mL [facility] Blood 09/30/2024 8:22 AM EST 09/30/2024 11:35 AM EST Sandy Rubi MD LAB BLOOD ORDERABLES Final Resul t [facility] [address] [place] [phone] documented in this encounter Visit Diagnoses Diagnosis Mild intermittent asthma without complication- Primary Primary osteoarthritis involving multiple joints Acquired hypothyroidism Unspecified hypothyroidism Vitamin D deficiency Anemia due to vitamin B12 deficiency, unspecified B12 deficiency type Screening for lipid disorders Screening for diabetes mellitus Metabolic dysfunction-associated steatotic liver disease (MASLD) Dietary counseling Dietary surveillance and counseling Exercise counseling Class 1 obesity due to excess calories without serious comorbidity with body mass index (BMI) of 30.0 to 30.9 in adult Obesity (BMI 30.0-34.9) Leg cramp Cramp of limb Diverticulosis of colon Diverticulosis of colon (without mention of hemorrhage) Gastroesophageal reflux disease, unspecified whether esophagitis present History of diverticulitis Kidney stone Calculus of kidney documented in this encounter Additional Health Concerns Assessment Noted Time PHQ-9 Depression Total Score: 0 04/14/20 24 9:33 AM EDT documented as of this encounter Care Teams Tape Recorder Repairer Relationship Specialty Start Date End Date Sandy Rubi MD [address] [place] [phone] PCP - General Family Medicine 08/06/18 documented as of this encounter
--- OUTSIDE RECORDS SUMMARY | 2024-10-10 07:37 | XMS_ITS | Encounter Summary ---
Author Organization [employer] Address [address] [facility] [address] [place] [address] Care Team Providers Care Ross Carrier Driver Name Role Phone Sandy Rubi MD Primary Care Provider [phone] Reason for Visit * Reason Onset Date Comments Referral 01/10/2023 Encounter Details Date Type Department Care Team ([facility] st Contact Info) Description 01/10/2023 Telephone [facility] MEDICINE [address] [place], [place] [phone] Sandy Rubi MD [address] [place], [place] [phone] Referral Social History Tobacco Use Types Packs/Day [...] Pt [place] [facility] [place] [address] [place] [address] [id number]. Had a previous referral but she was referred back in 2019. Fax #: [phone] Any questions please contact pt at [phone] documented in this encounter Plan of Treatment Upcoming Encounters Date Type Department Care Team (Late st Contact Info) Description 11/10/2024 3:00 PM EDT Office Visit [facility] MEDICINE [address] [place] [address] documented as of this encounter Visit Diagnoses Not on filedocumented in this encounter Additional Health Concerns Assessment Noted Time PHQ-9 Depression Total Score: 0 12/20/19 23 1:06 PM EDT documented as of this encounter Care Teams Ross Carrier Driver Relationship Specialty Start Date End Date Sandy Rubi MD [address] [place] [address] PCP - General Family Medicine 08/06/18 documented as of this encounter
--- OUTSIDE RECORDS SUMMARY | 2024-10-10 07:37 | XMS_ITS ---
Author Organization [facility] Address [address] [place] [id number] Care Team Providers Care Business Integration Analyst Name Role Phone Elicia PADILLA, Sandy Primary Care Provider Hugo Cain Unavailable [phone] Allergies Allergen (clinical drug ingredient) Drug/Non Drug Allergy documented on EMR Reaction Allergy Type Onset Date Status Penicillin Unknown Drug Allergy Active aspirin Aspirin Unknown Drug Allergy Active Results Component Value Reference Range Notes US abdomen comp w elastograp hy Reviewed date:12/17/2023 01:06:26 PM Interpretation: Performing Lab: Notes/Report: [facility] [address] [place] [id number] Ultrasound Report Signed Patient: Anisha Renteria MR#: [id number] : 1950 Acct:[id number] Age/Sex: 73 / F ADM Date: 12/05/23 Loc: HO.US Attending Dr: Hugo Jeong MD Ordering Physician: Hugo Jeong Date of Service: 12/05/23 Procedure(s): US abdomen comp w elastography Accession Number(s): [id number] cc: Sandy Rubi MD; Hugo Jeong EXAMINATION: [...] Sean Walker MD in OV> 12/11/231933 DD/ 1055 TD/TT: Genetic Physician: [place] [id number] Ultrasound Report Signed Patient: Roxi Renteria MR#: [id number] : 1950 Acct:[id number] Age/Sex: 73 / F ADM Date: 12/05/23 Loc: HO.US Attending Dr: Hugo Jeong MD Ordering Physician: Hugo Jeong Date of Service: 12/05/23 Procedure(s): US abd omen comp w elastography Accession Number(s): [id number] cc: Sandy Rubi MD; Hugo Jeong EXAMINATION: US COMPLETE ABDOMEN WITH LIVER ELASTOGRAPHY CLINICAL INFORMATION: Hepatic cirrhosis, w ithout ascites. COMPARISON: None available. TECHNIQUE: Real-time imaging of the abdominal viscera. Noninvasive ultrasound liver fibrosis asses sment is performed using Freida ElastPQ point quantification shear wave elastography (2D-SWE) with a C5-2 MHz transducer. Multiple elastography samples are obtained. FINDINGS: PANCREAS: Normal. Th e visualized pancreatic head and body are normal in appearance. The clay candie of the pancreas is obscured from visualization by the overlying bowel gas. ABDOMINAL AORTA: The proximal, middle, and distal aortic segments are normal in caliber. INFERIOR VENA CAVA: Visualized portions are normal. LIVER: Normal. The l iver demonstrates normal size, contour and echogenicity. No foc al lesion or intrahepatic biliary duct dilatation. The right lobe measu res 15.2 cm in length. The left lobe measures 13.8 cm in length. Portal flow is towar ds the liver (hepatopetal). Shear wave liver lexus stography median stiffness is 1.5 m/s (reference: normal median stiffn ess is 1.3 m/s or less). IQR/median stiffness to assess sampling precision is 0.19 (reference: good quality data se t is IQR/median stiffness of 0.15 or less). GALLBLADDER: Normal. The gallbladder is physiologically distended without evidence of stones, sludge, polyps, wall thickening or pericholecystic fluid. COMMON BILE DUCT: No rmal in caliber measuring 0.8 cm in diameter. RIGHT KIDNEY: Normal . No hydronephrosis. No renal calculi or focal parenchymal lesions. The kidney measures 9.8 cm in maximum dimension. LEFT KIDNEY: Normal. No hydronephrosis. No renal calculi or focal parenchymal lesions. The kidney measures 11.1 cm in maximum dimension. SPLEEN: Normal. The spleen measures 8 point cm in maximum dimension. FREE FLUID: None. U S/US abdomen comp w elastography IMPRESSION: 1. There is generali zed increase in hepatic echotexture, consistent with fatty infiltrat ion or hepatocellular disease. Please correlate clinically. No focal hepatic mass or intrahepatic biliary dilatation is seen. 2. Liver elastograph y: Although measurements appear to rule out compensated advanced chronic liver disease, there is statistical variability of the s ampling which decreases accuracy. REFERENCE: Society of Radiologi sts in Ultrasound Liver Stiffness Thresholds (2020): LIVER STIFFNESS THRESHOLDS: *Liver Stiffness equ al or less than 1.3 m/s: High probability of being normal. *Liver Stiffness les s than 1.7 m/s: In the absence of other known clinical signs, rule s out compensated advanced chronic liver disease. *Liver Stiffness 1.7 -2.1 m/s: Suggestive of compensated advanced chronic liver diseas e but need further test for confirmation. *Liver Stiffness ove r 2.1 m/s: Rules in compensated advanced chronic liver disease. *Liver Stiffness ove r 2.4 m/s: Suggestive of clinically significant portal hypertension. QUALITY OF DATA SET: *IQR/Median value eq ual or less than 0.15 implies a quality data set. *IQR/Median value ov er 0.15 implies a poor quality data set. SIGNIFICANT CHANGE F ROM PRIOR EXAM: Significant change i f liver stiffness measurement is 10% or greater from prior exam. OTHER CONSIDERATIONS: The stage of liver f ibrosis may be overestimated in the setting of acute hepatitis, analilia er inflammation, elevated liver function tests, hepatic vascular con gestion, obstructive cholestasis, non-fasting state, and infiltrat izabela diseases such as amyloidosis and lymphoma. In some patients with N AFLD, the liver stiffness thresholds for compensated advanced chronic liver disease may be lower. In causes other than viral hep atitis and NAFLD, liver stiffness thresholds are not well established. Dictated By: Sean Walker MD Signed By: <Deven patrick signed by Sean Walker MD in OV> 12/11/23 193 DD/ 105 TD/TT: Genetic Physician: RIN REASON FOR VISIT Patient presents today for gerd Medications Medication SIG (Take, Route, Frequency, Duration) Notes [...] as needed Inhalation every 4 hrs Active Social History Tobacco Use: Social History Observation Description Date Details (start date - stop date) Former Smoker NA - NA Tobacco Use/Smoking Question Answer Notes Patient is a former smoker When did you stop smoking? 26 Section Notes: Nonsmoker > 25 years; does n ot use any significant amounts of alcohol Vital Signs Temperature 97.5 degrees Fahrenheit 11/28/19 Blood pressure systolic 000 mm Hg 11/28/19 Blood pressure diastolic 00 mm Hg 024 Height 64 in 11/28/2023 Weight 169 lbs 11/28/2023 BMI 29.01 kg/m2 11/28/2023 Encounters Encounter Location Date Provider Diagnosis [facility] [address] [facility] [address] [place] [address] 11/28/2023 Hugo Jeong Gastroesophageal ref lux disease without esophagitis K21.9 ; Hx of adenomatous colonic polyps Z86.010 ; Cirrhosis of liver without ascites, unspecified hepatic cirrhosis type K74.60 ; Irritable bowel syndrome with constipation K58.1 and Diverticulitis of large intestine without perforation or abscess without bleeding K57.32 Assessments Encounter Date Diagnosis (ICD Code) Assessment Notes Treatment Notes Treatment Clinical Notes Section Notes 11/28/2023 Gastroesophageal reflux disease without esophagitis (ICD-10 - K21.9) Continue Pantoprazole Overall, Anisha appears quite well. Her GI issues all seem to be stable at the present time. I advised her to continue her pantoprazole at least once a day for relief of her reflux symptoms. We did review the results of her upper endoscopy in 2021 and I don't think she will need any further upper endoscopies unless symptoms were to develop in that regard. We did review her colonoscopy and I advised her of the need for another surveillance colonoscopy in 2026 in regard to the history of adenomas. I did advise her to continue her MiraLax and prune juice on a daily and regular basis to maintain good bowel regularity and avoid constipation. I advised her to continue to use dicyclomine as needed for her irritable bowel symptoms. Her history of diverticulitis seems to have been stable lately and hopefully that will remain the case as her bowel movements remain regular on her bowel regimen. I did advise her to call if she has any symptoms of diverticulitis that might require antibiotics. In regard to the underlying liver disease, this seems to be quite stable based on her history, exam, and recent laboratories. I shall check a followup liver ultrasound and alpha-fetoprotei n level for screening purposes. If things remain stable I will plan to see Anisha in one year for a followup visit. I did advise her certainly call prior to that if she has any problems or questions I can be of assistance with. Anisha was comfortable with this plan. Thank you again for allowing me to participate in Anisha's care. I shall continue to keep you advised of her progress. 11/28/2023 Hx of adenomatous colonic polyps (ICD-10 - Z86.010) Repeat colonoscopy in 03/2027 Overall, Anisha appears quite well. Her GI issues all seem to be stable at the present time. I advised her to continue her pantoprazole at least once a day for relief of her reflux symptoms. We did review the results of her upper endoscopy in 2021 and I don't think she will need any further upper endoscopies unless symptoms were to develop in that regard. We did review her colonoscopy and I advised her of the need for another surveillance colonoscopy in 2026 in regard to the history of adenomas. I did advise her to continue her MiraLax and prune juice on a daily and regular basis to maintain good bowel regularity and avoid constipation. I advised her to continue to use dicyclomine as needed for her irritable bowel symptoms. Her history of diverticulitis seems to have been stable lately and hopefully that will remain the case as her bowel movements remain regular on her bowel regimen. I did advise her to call if she has any symptoms of diverticulitis that might require antibiotics. In regard to the underlying liver disease, this seems to be quite stable based on her history, exam, and recent laboratories. I shall check a followup liver ultrasound and alpha-fetoprotei n level for screening purposes. If things remain stable I will plan to see Anisha in one year for a followup visit. I did advise her certainly call prior to that if she has any problems or questions I can be of assistance with. Anisha was comfortable with this plan. Thank you again for allowing me to participate in Anisha's care. I shall continue to keep you advised of her progress. 11/28/2023 Cirrhosis of liver without ascites, unspecified hepatic cirrhosis type (ICD-10 - K74.60) Overall, Anisha appears quite well. Her GI issues all seem to be stable at the present time. I advised her to continue her pantoprazole at least once a day for relief of her reflux symptoms. We did review the results of her upper endoscopy in 2021 and I don't think she will need any further upper endoscopies unless symptoms were to develop in that regard. We did review her colonoscopy and I advised her of the need for another surveillance colonoscopy in 2026 in regard to the history of adenomas. I did advise her to continue her MiraLax and prune juice on a daily and regular basis to maintain good bowel regularity and avoid constipation. I advised her to continue to use dicyclomine as needed for her irritable bowel symptoms. Her history of diverticulitis seems to have been stable lately and hopefully that will remain the case as her bowel movements remain regular on her bowel regimen. I did advise her to call if she has any symptoms of diverticulitis that might require antibiotics. In regard to the underlying liver disease, this seems to be quite stable based on her history, exam, and recent laboratories. I shall check a followup liver ultrasound and alpha-fetoprotei n level for screening purposes. If things remain stable I will plan to see Anisha in one year for a followup visit. I did advise her certainly call prior to that if she has any problems or questions I can be of assistance with. Anisha was comfortable with this plan. Thank you again for allowing me to participate in Anisha's care. I shall continue to keep you advised of her progress. 11/28/2023 Irritable bowel syndrome with constipation (ICD-10 - K58.1) Continue Miralax and Prune Juice every day Use Dicyclomine as needed for abdominal cramps Overall, Anisha appears quite well. Her GI issues all seem to be stable at the present time. I advised her to continue her pantoprazole at least once a day for relief of her reflux symptoms. We did review the results of her upper endoscopy in 2021 and I don't think she will need any further upper endoscopies unless symptoms were to develop in that regard. We did review her colonoscopy and I advised her of the need for another surveillance colonoscopy in 2026 in regard to the history of adenomas. I did advise her to continue her MiraLax and prune juice on a daily and regular basis to maintain good bowel regularity and avoid constipation. I advised her to continue to use dicyclomine as needed for her irritable bowel symptoms. Her history of diverticulitis seems to have been stable lately and hopefully that will remain the case as her bowel movements remain regular on her bowel regimen. I did advise her to call if she has any symptoms of diverticulitis that might require antibiotics. In regard to the underlying liver disease, this seems to be quite stable based on her history, exam, and recent laboratories. I shall check a followup liver ultrasound and alpha-fetoprotei n level for screening purposes. If things remain stable I will plan to see Anisha in one year for a followup visit. I did advise her certainly call prior to that if she has any problems or questions I can be of assistance with. Anisha was comfortable with this plan. Thank you again for allowing me to participate in Anisha's care. I shall continue to keep you advised of her progress. 11/28/2023 Diverticulitis of large intestine without perforation or abscess without bleeding (ICD-10 - K57.32) Overall, Anisha appears quite well. Her GI issues all seem to be stable at the present time. I advised her to continue her pantoprazole at least once a day for relief of her reflux symptoms. We did review the results of her upper endoscopy in 2021 and I don't think she will need any further upper endoscopies unless symptoms were to develop in that regard. We did review her colonoscopy and I advised her of the need for another surveillance colonoscopy in 2026 in regard to the history of adenomas. I did advise her to continue her MiraLax and prune juice on a daily and regular basis to maintain good bowel regularity and avoid constipation. I advised her to continue to use dicyclomine as needed for her irritable bowel symptoms. Her history of diverticulitis seems to have been stable lately and hopefully that will remain the case as her bowel movements remain regular on her bowel regimen. I did advise her to call if she has any symptoms of diverticulitis that might require antibiotics. In regard to the underlying liver disease, this seems to be quite stable based on her history, exam, and recent laboratories. I shall check a followup liver ultrasound and alpha-fetoprotei n level for screening purposes. If things remain stable I will plan to see Anisha in one year for a followup visit. I did advise her certainly call prior to that if she has any problems or questions I can be of assistance with. Anisha was comfortable with this plan. Thank you again for allowing me to participate in Anisha's care. I shall continue to keep you advised of her progress. Plan Of Treatment Medication Medication Name Sig Start Date Stop [...] Test Test Name Order Date ALPHA-FETOPROTEIN,TUMOR MARKER 4 Liver Fibrosis Pnl 11/28/2023 Next Appt Details Follow Up: 1 Year, Reason: Provider Name:Hugo Jeong , 12/02/2024 09:10:00 AM, [address] [place] [address], [address], [place], [address], Progress Notes * NAISHA RENTERIA EDOB:1950 (73 yo F)Acc No.[id number]:11/28/2023 Progress Notes Patient:?ANISHA RENTERIA E Provider:?Hugo Jeong MD :1950???Age:73 Y???Sex:Female D ate:11/28/2023 Address:[address] [place], [place] [id number] Pcp:Sandy Rubi MD Subjective: * Chief Complaints: * ???Patient presents today fo r gerd * HPI: ???incontinence:? I saw Anisha in followup today in regard to her underlying history of gastroesophageal reflux, irritable bowel syndrome with constipation, history of tubular adenomas of the colon, history of diverticulosis and diverticulitis, and history of cirrhosis due to fatty liver. ?I last saw Anisha in March of 2022, at which time she underwent a screening colonoscopy and upper endoscopy. The colonoscopy revealed a small tubular adenoma that was removed. The endoscopy revealed only minimal gastritis and a hiatal hernia, but no evidence of any varices nor portal gastropathy. ?Since that time she has been using pantoprazole at least once a day with usually good relief of reflux symptoms. She does take occasional second dose for relief of heartburn. She denies any dysphagia, anorexia, nausea, vomiting, nor early satiety. ?She describes her bowel movements have been fairly regular as long as she takes MiraLax and prune juice everyday. She finds that as long as her bowel movements are regular she does not have much in the way of any abdominal discomfort. She will have occasional abdominal cramps and discomfort that usually respond well to dicyclomine. If she doesn't have a bowel movement for a day or 2 she will then develop increasing bloating and cramps. She has not noticed any hematochezia or melena. She did have a couple episodes of diverticulitis in 2022 treated with outpatient antibiotics. ?She has not had any sign of worsening liver disease such as jaundice, increasing abdominal girth, edema, pruritus, nor significant fatigue. A CT scan in August of 2022 describe her liver as consistent with cirrhosis but no sign of a liver mass. ?Laboratories from earlier this revealed normal chemistries and renal function, normal LFTs except for an alkaline phosphatase of 133, albumin 4.1, white blood cell count 4000, hemoglobin 10.3, MCV 87, and platelet count of 159,000. * ROS:?General/Constitutional:?Change in appetite?denies.?Chills?denies.?Fatigue?denies.?Ophthalmologic:?Comments?all negative.?ENT:?Comments?all negative.?Respiratory:?hemoptysis?denies.?Cough?denies.?Cardiovascular:?Chest pain?denies.?Orthopnea?denies.?Gastrointestinal:?Comments?See HPI for details.?Genitourinary:?Hematuria?denies.?Dysuria?denies.?Incontinence?denies.?Musculoskeletal:?Painful joints?denies.?Weakness?denies.?Skin:?Itching?denies.?Rash?denies.?Neurologic:?Headache?denies.?Seizures?denies.?Psychiatric:?Comments?all negative.? * Medical History:? * Surgical History:?Carpal avila abdias--bilateral CCY BTL Breast biopsy- benign - taking tamoxifen--sees Dr. Polanco Right shoulder Trigger finger release torn tendon in knee 06/28 * Hospitalization/Major Diagno stic Procedure:?No Hospitalization History. * Family History:?Father: dece ased.?Mother: , diagnosed with Colon cancer.? Mother had colon cancer at age 86. No family history of liver cancer. * Social History:?Tobacco Use:?Tobacco Use/Smoking?Patient is a?former smoker,?When did you stop smoking??26.?Drugs/Alcohol:?Alcohol Screen?Points: 0, Interpretation: Negative.?Miscellaneous:?Marital status: . Occupation: disabled. ???Nonsmoker >25 years; does not use any significant amounts of alcohol. * Medications:?TakingLevothyro xine Sodium 112 MCG Tablet 1 tablet Orally Once a dayProAir HFA 90mcg Aerosol Solution 2 puffs as needed Inhalation every 4 hrsVitamin D 1000unit Capsule 1 capsule Orally Once a dayVitamin B 12 1000mcg 1 intramuscular every monthMeclizine HCl 25mg Tablet 1 tablet as needed Orally 3 times a day as neededSingulair 10 MG Tablet 1 tablet in the evening Orally Once a dayAlbuterol Sulfate (2.5 MG/3ML) 0.083% Nebulization Solution 3 ml Inhalation Three times a dayVitamin B6 50 MG Tablet 1 tablet Orally Once a dayVitamin C 500 MG Capsule as directed Orally Qvar 80 MCG/ACT Aerosol Solution 1 puff Inhalation Twice a dayMiraLax (colon prep) 17 GM/SCOOP Powder 1 238Gm bottle mixed with Gatorade or Crystal Light Orally begin at 5:00 p.m. the day before the procedureDulcolax (colon prep) 5 MG Tablet Delayed Release take at 3:00 p.m and 7:00p.m. Orally two tablets twice a day for one dayDicyclomine HCl 10 MG Capsule TAKE 1-2 CAPSULES BY MOUTH EVERY 6 HOURS NEEDED FOR CRAMPS/DISCOMFORT Ciprofloxacin HCl 500 MG Tablet 1 tablet Orally every 12 hrsCipro 500 MG Tablet 1 tablet Orally every 12 hrsmetroNIDAZOLE 500 MG Tablet 1 tablet Orally Three times a dayPantoprazole Sodium 40 MG Tablet Delayed Release TAKE 1 TABLET BY MOUTH TWICE A DAY Orally Twice a day for heartburn and refluxTaking Levothyroxine Sodium 112 MCG Tablet 1 tablet Orally Once a dayTaking ProAir HFA 90mcg Aerosol Solution 2 puffs as needed Inhalation every 4 hrsTaking Vitamin D 1000unit Capsule 1 capsule Orally Once a dayTaking Vitamin B 12 1000mcg 1 intramuscular every monthTaking Meclizine HCl 25mg Tablet 1 tablet as needed Orally 3 times a day as neededTaking Singulair 10 MG Tablet 1 tablet in the evening Orally Once a dayTaking Albuterol Sulfate (2.5 MG/3ML) 0.083% Nebulization Solution 3 ml Inhalation Three times a dayTaking Vitamin B6 50 MG Tablet 1 tablet Orally Once a dayTaking Vitamin C 500 MG Capsule as directed Orally Taking Qvar 80 MCG/ACT Aerosol Solution 1 puff Inhalation Twice a dayTaking MiraLax (colon prep) 17 GM/SCOOP Powder 1 238Gm bottle mixed with Gatorade or Crystal Light Orally begin at 5:00 p.m. the day before the procedureTaking Dulcolax (colon prep) 5 MG Tablet Delayed Release take at 3:00 p.m and 7:00p.m. Orally two tablets twice a day for one dayTaking Dicyclomine HCl 10 MG Capsule TAKE 1-2 CAPSULES BY MOUTH EVERY 6 HOURS NEEDED FOR CRAMPS/DISCOMFORT Taking Ciprofloxacin HCl 500 MG Tablet 1 tablet Orally every 12 hrsTaking Cipro 500 MG Tablet 1 tablet Orally every 12 hrsTaking metroNIDAZOLE 500 MG Tablet 1 tablet Orally Three times a dayTaking Pantoprazole Sodium 40 MG Tablet Delayed Release TAKE 1 TABLET BY MOUTH TWICE A DAY Orally Twice a day for heartburn and refluxNot-Taking/PRNSucralfate 1 GM Tablet TAKE 1 TABLET BY ORAL ROUTE 4 TIMES EVERY DAY ON AN EMPTY STOMACH 1 HOUR BEFORE MEALS AND AT BEDTIME Oral as directedMedication List reviewed and reconciled with the patientNot-Taking/PRN Sucralfate 1 GM Tablet TAKE 1 TABLET BY ORAL ROUTE 4 TIMES EVERY DAY ON AN EMPTY STOMACH 1 HOUR BEFORE MEALS AND AT BEDTIME Oral as directedMedication List reviewed and reconciled with the patient * Allergies:?PenicillinAspirin yes[Allergies Verified] Objective: * Vitals:?Wt: 169 lbs, Ht: 64 in, BMI:29.01 Index, BP: 000/00 mm Hg, Temp: 97.5. * Examination: ???General Examination: ?GENERAL APPEARANCE:?pleasant, well nourished, well developed, in no acute distress.?EYES:?sclera non-icteric.?ORAL CAVITY:?mucosa moist.?NECK/THYROID:?no cervical lymphadenopathy, neck supple.?SKIN:?nonjaundiced, no spider angiomata.?HEART:?S1, S2 normal.?LUNGS:?clear to auscultation bilaterally.?ABDOMEN:?normal bowel sounds, no guarding or rigidity, no masses palpable, soft, nondistended--mild diffuse tenderenss.?EXTREMITIES:?no edema.?NEUROLOGIC:?alert and oriented.? Assessment: * Assessment: 1.?Gastroesophageal reflux d isease without esophagitis - K21.9 (Primary)?2.?Hx of adenomatous colonic polyps - Z86.010?3.?Cirrhosis of liver without ascites, unspecified hepatic cirrhosis type - K74.60?4.?Irritable bowel syndrome with constipation - K58.1?5.?Diverticulitis of large intestine without perforation or abscess without bleeding - K57.32? Overall, Anisha appears quite well. Her GI issues all seem to be stable at the present time. I advised her to continue her pantoprazole at least once a day for relief of her reflux symptoms. We did review the results of her upper endoscopy in 2021 and I don't think she will need any further upper endoscopies unless symptoms were to develop in that regard. We did review her colonoscopy and I advised her of the need for another surveillance colonoscopy in 2026 in regard to the history of adenomas. I did advise her to continue her MiraLax and prune juice on a daily and regular basis to maintain good bowel regularity and avoid constipation. I advised her to continue to use dicyclomine as needed for her irritable bowel symptoms. Her history of diverticulitis seems to have been stable lately and hopefully that will remain the case as her bowel movements remain regular on her bowel regimen. I did advise her to call if she has any symptoms of diverticulitis that might require antibiotics. In regard to the underlying liver disease, this seems to be quite stable based on her history, exam, and recent laboratories. I shall check a followup liver ultrasound and alpha-fetoprotein level for screening purposes. If things remain stable I will plan to see Anisha in one year for a followup visit. I did advise her certainly call prior to that if she has any problems or questions I can be of assistance with. Anisha was comfortable with this plan. Thank you again for allowing me to participate in Anisha's care. I shall continue to keep you advised of her progress. Plan: * Treatment: 2.?Hx of adenomatous colonic polyps? Notes: Repeat colonoscopy in 03/2027?? 3.?Cirrhosis of liver withou t ascites, unspecified hepatic cirrhosis type?LAB: ALPHA-FETOPROTEIN,TUMOR MARKER ?LAB: Liver Fibrosis Pnl ?Imaging: US abdomen comp w elastography * 4.?Irritable bowel syndrome with constipation? Start MiraLax Powder, 17 GM/SCOOP, 1 scoop mixed with 8 ounces of fluid, Orally, Once or twice a day for constipation, 30 day(s), 1, Refills 6.?? Notes: Continue Miralax and Prune Juice every day Use Dicyclomine as needed for abdominal cramps?? * Procedure Codes:?3017F COLOR ECTAL CA SCREEN DOC [id number] TOBACCO [id number] BP SCR NOT PRFRM REC REASON NOS * Preventive Medicine:? ??Counseling:?Care goal follow-up plan:?Above Normal BMI Follow-up?Giving encouragement to exercise,?BMI management provided?Yes.? ??Urinary Incontinence:?Urinary Incontinence?Assessment:?Present,?Plan of care documented:?Yes,?Type of plan of care:?Lifestyle interventions.? * Follow Up:?1 Year * * Sign off status: Completed true * Provider:?Hugo Jeong MD Date:? 024 Generated for Shreyas kern/Hanh/Priyanka on:?10/10/2024 07:36 AM EST History and Physical Notes * HPI (History of Present Illness) Category Sub-Category Detail Notes Category Not es incontinence I saw Anisha in followup today in regard to her underlying history of gastroesophageal reflux, irritable bowel syndrome with constipation, history of tubular adenomas of the colon, history of diverticulosis and diverticulitis, and history of cirrhosis due to fatty liver. I last saw Anisha in March of 2022, at which time she underwent a screening colonoscopy and upper endoscopy. The colonoscopy revealed a small tubular adenoma that was removed. The endoscopy revealed only minimal gastritis and a hiatal hernia, but no evidence of any varices nor portal gastropathy. Since that time she has been using pantoprazole at least once a day with usually good relief of reflux symptoms. She does take occasional second dose for relief of heartburn. She denies any dysphagia, anorexia, nausea, vomiting, nor early satiety. She describes her bowel movements have been fairly regular as long as she takes MiraLax and prune juice everyday. She finds that as long as her bowel movements are regular she does not have much in the way of any abdominal discomfort. She will have occasional abdominal cramps and discomfort that usually respond well to dicyclomine. If she doesn't have a bowel movement for a day or 2 she will then develop increasing bloating and cramps. She has not noticed any hematochezia or melena. She did have a couple episodes of diverticulitis in 2022 treated with outpatient antibiotics. She has not had any sign of worsening liver disease such as jaundice, increasing abdominal girth, edema, pruritus, nor significant fatigue. A CT scan in August of 2022 describe her liver as consistent with cirrhosis but no sign of a liver mass. Laboratories from earlier this revealed normal chemistries and renal function, normal LFTs except for an alkaline phosphatase of 133, albumin 4.1, white blood cell count 4000, hemoglobin 10.3, MCV 87, and platelet count of 159,000. Examination Category Sub-Category Detail Notes Category Not es General Examination GENERAL APPEARANCE: pleasant , well [...]
--- OUTSIDE RECORDS SUMMARY | 2024-10-10 07:37 | XMS_ITS | Encounter Summary ---
Author Organization [employer] Address [address] [facility] [address] [place] [address] Care Team Providers Care Policyholder Information Clerk Name Role Phone Sandy Rubi MD Primary Care Provider [phone] Encounter Details Date Type Department Care Team [...] Description 11/10/2024 3:00 PM EDT Office Visit [facility] [address] [place] [address] documented as of this encounter Visit Diagnoses Not on filedocumented in this encounter Additional Health Concerns Assessment Noted Time PHQ-9 Depression Total Score: 0 04/14/20 24 9:33 AM EDT documented as of this encounter Care Teams Policyholder Information Clerk Relationship Specialty Start Date End Date Sandy Rubi MD [address] [place] [address] PCP - General Family Medicine 08/06/18 documented as of this encounter
--- OUTSIDE RECORDS SUMMARY | 2024-10-10 07:37 | XMS_ITS | Encounter Summary ---
Author Organization [employer] Address [address] [facility] [address] [place] [address] Care Team Providers Care Site Acquisition Manager Name Role Phone Sandy Rubi MD Primary Care Provider [phone] Reason for Visit * Reason Onset Date Comments Chart Prep 09/24/2024 Encounter Details Date Type Department Care Team ([facility] st Contact Info) Description 09/24/2024 Telephone [facility] [address] [place], [place] [phone] Sandy Rubi MD [address] [place], [place] [phone] Chart Prep Social History Tobacco Use Types Packs/Day Years Used Date Smoking Tobacco: Never Passive Smoke Exposure: Never Smokeless Tobacco: Never Depression Answer Date Recorded Patient Health Questionnaire-9 Score 0 04/14/2024 Patient Health Questionnaire-9 Score 0 04/14/2024 Last PHQ-9: Questionnaire Data Not on file 0 04/14/2024 Housing Stability Answer Date Recorded What is your housing situation today? I have sudha ferrre 05/23/[address] you li [...] applicable Images: sent a message to Dx women specialist Providencia in regards to US Soft Tissue Upper Back, was not abl to find completed report in [employer], asked for assistance in retrieving results. Vaccines [...] Description 11/10/2024 3:00 PM EDT Office Visit [facility] [address] [place] [address] documented as of this encounter Visit Diagnoses Not on filedocumented in this encounter Additional Health Concerns Assessment Noted Time PHQ-9 Depression Total Score: 0 04/14/20 24 9:33 AM EDT documented as of this encounter Care Teams Site Acquisition Manager Relationship Specialty Start Date End Date Sandy Rubi MD [address] [place] [address] PCP - General Family Medicine 08/06/18 documented as of this encounter
--- OUTSIDE RECORDS SUMMARY | 2024-10-10 07:37 | XMS_ITS | Encounter Summary ---
Author Organization [employer] Address [address] [facility] [address] [place] [address] Care Team Providers Care Credit Review Analyst Name Role Phone Sandy Rubi MD Primary Care Provider [phone] Reason for Visit * Reason Onset Date Comments imaging 09/24/2024 Encounter Details Date Type Department Care Team ([facility] st Contact Info) Description 09/24/2024 Telephone [facility] [address] [place], [place] [phone] Sandy Rubi MD [address] [place], [place] [phone] imaging Social History Tobacco Use Types Packs/Day [...] 3:00 PM EDT Office Visit [facility] [address] [place] [address] documented as of this encounter Visit Diagnoses Not on filedocumented in this encounter Additional Health Concerns Assessment Noted Time PHQ-9 Depression Total Score: 0 04/14/20 24 9:33 AM EDT documented as of this encounter Care Teams Credit Review Analyst Relationship Specialty Start Date End Date Sandy Rubi MD [address] [place] [address] PCP - General Family Medicine 08/06/18 documented as of this encounter
--- OUTSIDE RECORDS SUMMARY | 2024-10-10 07:37 | XMS_ITS | Encounter Summary ---
Author Organization [employer] Address [address] [facility] 7[address] [place] [address] Care Team Providers Care Designer Name Role Phone Sandy Rubi MD Primary Care Provider [phone] Encounter Details Date Type Department Care Team (Late Contact Info) Description 01/10/2023 Orders Only [facility] MED[facility] [address] [place], [place] [phone] Sandy Rubi MD [address] [place] [address] Right foot pain (Primary Dx); Primary osteoarthritis [...] Description 11/10/2024 3:00 PM EDT Office Visit [facility] [address] [place] [phone] documented as of this encounter Visit Diagnoses Diagnosis Right foot pain- Primary Pain in soft tissues of limb Primary osteoarthritis involving multiple joints Plantar fasciitis Plantar fascial fibromatosis documented in this encounter Additional Health Concerns Assessment Noted Time PHQ-9 Depression Total Score: 0 12/20/19 23 1:06 PM EDT documented as of this encounter Care Teams Designer Relationship Specialty Start Date End Date Sandy Rubi MD [address] [place] [id number] PCP - General Family Medicine 08/06/18 documented as of this encounter
--- OUTSIDE RECORDS SUMMARY | 2024-10-10 07:37 | XMS_ITS ---
Author Organization [facility] Address [address] [place] [address] Care Team Providers Care District Captain Name Role Phone Elicia PADILLA, Sandy Primary Care Provider Hugo Cain [phone] REASON FOR VISIT ov appt Encounters Encounter Location Date Provider Diagnosis [facility] [address] [facility] [address] [place] [address] 07/03/2023 Hugo Jeong Plan Of Treatment Next Appt Details Provider Name:Hugo Jeong , 12/02/2024 09:10:00 AM, [address], [address], [place], [address], Progress Notes * JIM RENTERIA EDOB:1950 (72 yo F)Acc No.[id number]:07/03/2023 Patient:?JIM RENTERIA :1950???Age:72 Y???Sex:Female Address:[address] [place] [address] * true * Date:? Generated for Gladysi erlin/Hanh/eTransmitting on:?10/10/2024 07:36 AM EST
== END 2024-10-10 07:34 | disposition home or self-care (01) ==
LOC: HO.MAMMO 07:33
PROVIDERS: PCP Family Medicine; Visit Provider Family Medicine
DX: Z12.31 Encounter for screening mammogram for malignant neoplasm of breast (principal)
CPT/HCPCS: 77063; 77067

== ENCOUNTER → 2024-10-10 07:45 | Outpatient (BNV) | payer MEDICARE, MEDICAID, SELFPAY | PROVIDERS: PCP Family Medicine; Visit Provider Internal Medicine | DX: Z12.31 Encounter for screening mammogram for malignant neoplasm of breast (principal) | CPT/HCPCS: 77063; 77067 ==

== ENCOUNTER 2024-11-03 07:11 | Emergency (ER) | payer MEDICARE, MEDICAID, SELFPAY ==
--- NOTE | ~2024-11-03 | CT_ITS ---
EXAMINATION: CT ABDOMEN AND PELVIS WITH CONTRAST CLINICAL INFORMATION: Upper abdominal pain radiating to the back. Nausea and vomiting. COMPARISON: June 03, 2024. TECHNIQUE: Multidetector volumetric images were obtained from the superior aspect of the liver through the pubic symphysis following administration 85 mL of Omnipaque 350 intravenous contrast. Sagittal and coronal reformatted images were obtained on the technologist's workstation. Oral contrast: No This CT examination was performed using dose optimization techniques as appropriate, variously including the following: *Automated exposure control *Adjustment of mA and/or kV according to patient size (this includes techniques or standardized protocols for targeted exams where dose is matched to indication/reason for exam; i.e. extremities or head) *Use of iterative reconstruction technique DLP: 437 mGy centimeter. FINDINGS: LUNG BASES: No acute airspace disease. LIVER, GALLBLADDER, AND BILIARY TREE: Liver measures 15 cm. Prominent caudate lobe. Subtle nodular surface. No gross solid mass. Portal veins and hepatic veins are patent. Status post cholecystectomy. Common bile duct measures 7 mm. PANCREAS: No focal lesion. No main pancreatic ductal dilatation. No peripancreatic fluid collection. SPLEEN: 8 cm. No focal lesion. ADRENAL GLANDS: No nodular lesions. KIDNEYS AND URETERS: No hydronephrosis. 2 mm nonobstructing calculus in the lower pole/midportion right kidney. Subcentimeter cyst. No gross renal mass. BLADDER: Fluid-filled. GASTROINTESTINAL TRACT: Small hiatal hernia. Stool throughout the large intestine. Fecal sign, small intestine. Scattered diverticula, left hemicolon. Appendix is normal. No intestinal obstruction pattern. Nonspecific mesenteric edema pattern. No ascites. No pneumatosis intestinalis. No pneumoperitoneum. There is a large, 4 cm gas and fluid-filled diverticulum, third portion of the duodenum. ABDOMINAL WALL: Small fat-containing umbilical hernia. Multiple sutures secondary to a supraumbilical laparotomy. LYMPH NODES: Nonspecific prominent mesenteric and retroperitoneal. VASCULAR: Prominent vessels in the distal paraesophageal/gastroesophageal junction. The umbilical vein is not prominent or patent. No aneurysm or dissection, abdominal aorta. Mixed plaques throughout the abdominal aorta wall and the origin of the celiac trunk right main renal artery. PELVIC VISCERA: No gross masses. OSSEOUS STRUCTURES: Multilevel thoracolumbar spondylosis. Grade 1 anterolisthesis L4-5 resulting in bilateral neuroforamina stenosis/narrowing. CT/CT abdomen pelvis w IV con IMPRESSION: Concerning hepatocellular disease/cirrhosis without ascites. Probable varices, gastroesophageal junction. Diverticular disease. Duodenum diverticula. Nonobstructing nephrolithiasis, right kidney. Fleischner guidelines were followed. Electronically signed by: Maco Campo MD 11/03/2024 09:18 AM EDT
[2024-11-03 07:25] VITALS: BP 121/91; PULSE 69; RESP 16; TEMP 36.1; O2SAT 99; BMI 28.5
--- NOTE | 2024-11-03 07:28 | ECG_ITS ---
Test Reason : epigastric pain Blood Pressure : */* mmHG Vent. Rate : 66 BPM Atrial Rate : 66 BPM P-R Int : 226 ms QRS Dur : 78 ms QT Int : 362 ms P-R-T Axes : 43 -2 15 degrees QTcB Int : 379 ms Sinus rhythm with 1st degree A-V block Septal infarct (cited on or before 19-Nov-2021) Abnormal ECG When compared with ECG of 19-Nov-2021 15:24, No significant changes seen Referred By: Generic ED Physician Electronically Signed By: JOHANNA FULLER
[2024-11-03 07:42] LABS: MANUAL DIFF FLAG NO
[2024-11-03 07:43] LABS: Basophils Percent Auto 0.4 % (0-2); Eosinophils Percent Auto 0.8 % (0-4); Hematocrit 34.8 % (37.0-47.0); Hemoglobin 11.1 g/dl (12.0-16.0); Imm Gran Abs Auto 0.01 X10*3/uL (0.00-0.03); Imm Gran Pct Auto 0.2 % (0.0-0.4); Lymphocytes Absolute Auto 1.6 X10*3/uL (1.2-4.9); Lymphocytes Percent Auto 30.2 % (20-40); Mean Corpuscular HGB Conc 31.9 g/dl (31.0-35.0); Mean Corpuscular Hemoglobin 27.8 pg (27.0-33.0); Mean Corpuscular Volume 87.2 fL (80.0-98.0); Mean Platelet Volume 11.2 fL (9.4-12.3); Monocytes Absolute Auto 0.6 X10*3/uL (0.1-1.2); Neutrophils Percent Auto 57.4 % (45-73); Platelet Count 160 X10*3/uL (160-400); Red Blood Count 3.99 X10*6/uL (4.20-5.50); Red Cell Distribution Width 14.5 % (11.0-16.0); White Blood Count 5.2 X10*3/uL (4.8-10.8)
[2024-11-03 07:58] LABS: Alanine Aminotransferase 23 U/L (0-31); Albumin Level 4.1 g/dL (3.5-5.0); Alkaline Phosphatase 109 U/L (39-117); Anion Gap 10 (12-20); Aspartate Amino Transferase 24 U/L (5-31); Bilirubin Direct 0.1 mg/dL (0.0-0.5); Bilirubin Total 0.3 mg/dL (0.0-1.0); Blood Urea Nitrogen 14 mg/dL (9-16); Calcium 9.8 mg/dL (8.4-10.2); Carbon Dioxide 26 mmol/L (22-29); Chloride 107 mmol/L (96-108); Creatinine Clr Calc Pharmacy 67.4; Estimated Glomerular Filt Rate > 60; Glucose Random 97 mg/dL (60-115); Lipase 42 U/L (8-78); Potassium 3.9 mmol/L (3.3-5.1); Sodium 139 mmol/L (135-145); Total Protein 7.6 g/dL (6.5-8.0)
--- NOTE | 2024-11-03 07:59 | ED.ABDPAIN ---
HPI - Abdominal Pain General Chief Complaint: Abdominal Pain Stated Complaint: Back and Stomach Pain Time Seen by Provider: 11/03/24 07:46 Source: patient and old records reviewed Mode of arrival: ambulatory Limitations: no limitations History of Present Illness ED Provider: GABBIE BAL narrative: 74 yo female with PMH of arthritis, kidney stones, anemia, low grade b cell lymphoma, asthma, GERD, hypothyroidism who presents with c/o upper abdominal pain with nausea that wraps around her back. No fevers, no diarrhea. She states she takes ibuprofen daily. She denies GIB symptoms. This pain has been 1.5 weeks and still present. She has been in remission from her lymphoma she states 5 years ago. She states the pain is not getting better. Hurts to move and eat. MD elicited complaint: abdominal pain Pertinent past history: none Onset (ago): week(s) (1.5) Pain Consistency: constant Location: epigastric Severity: moderate Quality: aching and dull Radiation: back Exacerbating factors: eating and movement Relieving factors: nothing Associated symptoms: nausea and diarrhea Related Data Home Medications ?Medication ?Instructions ?Recorded ?Confirmed albuterol sulfate 90 mcg/actuation 2 puff inhalation Q4-6H PRN 05/03/20 07/21/24 aerosol inhaler Shortness Of Breath levothyroxine 88 mcg tablet 88 mcg PO DAILY 05/03/20 07/21/24 montelukast 10 mg tablet 10 mg PO DAILY 05/03/20 07/21/24 pantoprazole 40 mg tablet,delayed 40 mg PO DAILY 05/03/20 07/21/24 release cholecalciferol (vitamin D3) 25 25 mcg PO DAILY 05/14/20 07/21/24 mcg (1,000 unit) capsule cyanocobalamin (vitamin B-12) 1,000 mcg IM [id number] 05/14/20 07/21/24 1,000 mcg/mL injection solution ascorbic acid (vitamin C) 1,000 mg 1 g PO Q6H 11/11/20 07/21/24 tablet (Vitamin C) simethicone 125 mg tablet 250 mg PO BID PRN Gastrointestinal 11/11/20 07/21/24 Spasms Or Cramping meclizine 25 mg tablet 1 tab PO TID PRN Dizziness 12/12/21 07/21/24 dicyclomine 10 mg capsule 2 cap PO Q6H PRN Gastrointestinal 03/07/22 07/21/24 Spasms Or Cramping Previous Rx's ?Medication ?Instructions ?Recorded acetaminophen 300 mg-codeine 30 mg 1 tab PO Q6H PRN pain #20 tabs 06/22/23 tablet Magic Mouthwash 10 ml PO QID #240 mL 09/17/23 Diphen/Lido/Antacid 1:1:1 240 mL suspension ondansetron 4 mg disintegrating 4 mg PO Q8H PRN nausea and 11/03/24 tablet vomiting #20 tabs sucralfate 100 mg/mL oral 10 ml PO BID 7 days #140 mL 11/03/24 suspension (Carafate) Allergies Allergy/AdvReac Type Severity Reaction Status Date / Time aspirin [ASPIRIN] Allergy Intermediate RASH Verified 11/03/24 07:27 Penicillins [PENICILLINS] Allergy Intermediate HIVES, BLACK Verified 11/03/24 07:27 SPOTS Review of Systems Review of Systems Constitutional : No Weight loss, No Fever, No Chills ENT/Mouth : No sore throat, No Rhinorrhea Eyes: No Swelling, No Redness Cardiovascular : No Chest Pain, No SOB, NoEdema Respiratory : No Cough, No Sputum, No Wheezing Gastrointestinal : Positive Nausea, Positive Vomiting, no Diarrhea, positive abdominal Pain, No Hematochezia, No Melena Genitourinary : No Dysuria, No Urinary Frequency, No Hematuria, No Urgency Musculoskeletal : No joint pain, No Myalgias, No Joint Swelling Skin : No Skin Lesions, No rash Neuro : No Weakness, No Numbness, No Dizziness, No Headache All other systems reviewed and are negative. [facility] Past Medical History Attestation statement: The following information was validated with the patient. Source: old records reviewed Medical History IBS (irritable bowel syndrome) Lymphoma Diverticulitis Diverticulosis Hypothyroid Tubal ligation evaluation GERD (gastroesophageal reflux disease) Aberrant thyroid gland Asthma B12 deficiency anemia Pulmonary embolism Primary osteoarthritis of knees, bilateral Breast cancer, left breast Surgical History History of endoscopy Hx of nasal septoplasty Hx of lithotripsy History of lumpectomy of left breast Hx of cholecystectomy History of esophagogastroduodenoscopy (EGD) H/O colonoscopy Hx of lymph node biopsy History of bone marrow biopsy History of removal of Port-a-Cath History of vocal cord polypectomy Hx of rotator cuff surgery Hx of carpal tunnel repair Family History Family History Mother Family hx of colon cancer Arthritis Father Hx of kidney disease Brother History of throat cancer Daughter Arthritis Sister Arthritis Social History Social History Household Members: None Housing: Condominium Are you a primary client care representative to a significant other at home: No Do you presently have visiting nurse or other home services: Yes ([employer]) Alcohol intake: never Patient Tobacco Use Status: Former Tobacco user Smoked in Last 30 Days: Yes Second Hand Smoke Exposure: No Use of substances other than those prescribed or required for medical reasons: No Advance Directives: No Advance Directives Information Provided: Yes service: No Current occupational status: disabled Sexual orientation: Straight/Heterosexual Gender identity: Female Physical Exam ED Vital Signs: Vital Signs - 24 hr 11/03/24 07:25 Temperature 97.0 F Pulse Rate 69 Respiratory Rate 16 Blood Pressure 121/91 H Pulse Oximetry 99 Oxygen Delivery Method Room Air BMI result Body Mass Index 28.5 Appearance: Alert. Oriented X3. No acute distress. Eyes: Pupils equal, round and reactive to light. ENT: Pharynx normal. Neck: Normal inspection. Neck supple. CVS: Normal heart rate and rhythm. Pulses normal. Respiratory: No respiratory distress. Breath sounds normal. Abdomen: Soft and moderate epigastric ttp no mass felt Skin: Skin warm and dry. Normal skin color. Normal skin turgor. Extremities: No lower extremity edema. No calf ttp Neuro: Oriented X 3. No motor deficit. No sensory deficit. CN2-12 intact Medical Decision Making Medical Decision Making MDM Narrative: 74 yo female with PMH of arthritis, kidney stones, anemia, low grade b cell lymphoma, asthma, GERD, hypothyroidism here with c/o upper abdominal pain and nausea x 1.5 weeks she has moderate ttp on exam at this time will need labs, EKG, trop, lipase/LFTs and CT scan for pancreatitis, mass. IV morphine for pain ordered. Differential Diagnosis Differential Diagnoses: The differential diagnosis associated with the presentation includes gastritis, PUD, pancreatitis, GERD, mass Admission/Observation Consideration of admission/observation: Escalation of care including admission/observation considered 1.5 weeks of symptoms, no perforation, labs stable will start on carafate and zofran refer to GI Lab Data MDM Lab Attestation statement: I reviewed the patient's lab results. 11/03/24 07:37 11/03/24 07:37 Labs: Lab Results 11/03/24 11/03/24 Range/Units 07:37 07:55 WBC 5.2 (4.8-10.8) X10*3/uL RBC 3.99 L (4.20-5.50) X10*6/uL Hgb 11.1 L (12.0-16.0) g/dl Hct 34.8 L (37.0-47.0) % MCV 87.2 (80.0-98.0) fL MCH 27.8 (27.0-33.0) pg MCHC 31.9 (31.0-35.0) g/dl RDW 14.5 (11.0-16.0) % Plt Count 160 (160-400) X10*3/uL MPV 11.2 (9.4-12.3) fL Immature Gran % (Auto) 0.2 (0.0-0.4) % Neut % (Auto) 57.4 (45-73) % Lymph % (Auto) 30.2 (20-40) % [place] % (Auto) 11.0 (2-11) % Eos % (Auto) 0.8 (0-4) % Baso % (Auto) 0.4 (0-2) % Lymph # (Auto) 1.6 (1.2-4.9) X10*3/uL [place] # (Auto) 0.6 (0.1-1.2) X10*3/uL Eos # (Auto) 0.0 (0.0-0.4) X10*3/uL Baso # (Auto) 0.0 (0.0-0.2) X10*3/uL Abs Immat Gran (auto) 0.01 (0.00-0.03) X10*3/uL Absolute Neuts (auto) 3.0 (2.0-8.3) x10*3/uL Absolute Nucleated RBC 0.000 (0.0-0.012) X10*3/uL Nucleated RBC % (auto) 0.0 (0.0-0.2) /100WBC Sodium 139 (135-145) mmol/L Potassium 3.9 (3.3-5.1) mmol/L Chloride 107 (96-108) mmol/L Carbon Dioxide 26 (22-29) mmol/L Anion Gap 10 L (12-20) BUN 14 (9-16) mg/dL Creatinine 0.69 (0.5-1.4) mg/dL Estim Creat Clear Calc 67.4 Estimated GFR > 60 Random Glucose 97 (60-115) mg/dL Calcium 9.8 (8.4-10.2) mg/dL Total Bilirubin 0.3 (0.0-1.0) mg/dL Direct Bilirubin 0.1 (0.0-0.5) mg/dL AST 24 (5-31) U/L ALT 23 (0-31) U/L Alkaline Phosphatase 109 (39-117) U/L Troponin I High Sens < 2.7 (<3.5-17.0) ng/L Total Protein 7.6 (6.5-8.0) g/dL Albumin 4.1 (3.5-5.0) g/dL Lipase 42 (8-78) U/L Urine Color Yellow Urine Appearance Clear Urine pH 7.0 (5.0-9.0) Ur Specific [place] 1.010 (1.005-1.025) Urine Protein Negative (Neg-Trace) mg/dL Urine Glucose (UA) Negative (Negative) mg/dL Urine Ketones Negative (Negative) mg/dL Urine Blood Negative (Negative) Urine Nitrite Negative (Negative) Ur Leukocyte Esterase Small (1+) H (Negative) Urine RBC 0-2 (0-2) /HPF Urine WBC 0-5 (0-5) /HPF Ur Squamous Epith Cells 0-2 (0-2) /HPF Urine Bacteria None Seen (None Seen) Hyaline Casts 0-2 (0-2) /LPF Influenza Type A (PCR) NEGATIVE (Negative) Influenza Type B (PCR) NEGATIVE (Negative) RSV RNA Qual (PCR) NEGATIVE (Negative) SARS-CoV-2 RNA (RT-PCR) NEGATIVE (Negative) Independent Interpretation I performed an independent interpretation of an: EKG and CT Scan (no acute pathology ) Interpretation: Rate: 66 Rhythm: NSR with 1st degree [place]: left Normal P waves. 1st degree AVB. Normal QRS complex. ST T wave : normal no DIAZ qTC: 379 prior studies: no acute ischemia The study has been interpreted contemporaneously by me. . Radiology Impression Discussion of test interpretation with radiology: I have reviewed the radiologist's reading. External Record Review External record reviewed: Outpatient record Prescription Management I considered prescription management with: Other Medications Administered Discontinued Medications Generic Name Dose Route Start Last Admin Trade Name Freq PRN Reason Stop Dose Admin Iohexol 85 ml 11/03/24 08:44 11/03/24 08:45 Iohexol 350 Mg/Ml 100 Ml Infus..Btl IV 11/03/24 08:45 85 ml ONCE ONE Administration Morphine Sulfate 4 mg 11/03/24 08:09 11/03/24 08:21 Morphine Sulfate 4 Mg/Ml Cartridge IVPUSH 11/03/24 08:10 Not Given ONCE ONE Protocol Ondansetron HCl 4 mg 11/03/24 08:09 11/03/24 08:23 Ondansetron Hcl 4 Mg/2 Ml Vial IVPUSH 11/03/24 08:10 4 mg ONCE ONE Administration Discharge Plan Discharge Clinical Impression: Abdominal pain Qualifiers: Abdominal location: epigastric Qualified Code(s): R10.13 - Epigastric pain Patient Disposition: Home, Self-Care Instructions: Abdominal Pain (ED) Additional Instructions: labs reassuring CT scan no acute findings but you need to follow up with gastroenterology avoid ibuprofen for pain at this time until cleared return for worsening pain, fevers, vomiting, black or bloody stools or any other concerns continue to take your pantoprazole as well as new medication prescribed CT/CT abdomen pelvis w IV con IMPRESSION: Concerning hepatocellular disease/cirrhosis without ascites. Probable varices, gastroesophageal junction. Diverticular disease. Duodenum diverticula. Nonobstructing nephrolithiasis, right kidney. Prescriptions: New sucralfate [Carafate] 100 mg/mL suspension 10 ml PO BID 7 Days Qty: 140 0RF ondansetron 4 mg tablet,disintegrating 4 mg PO Q8H PRN (Reason: nausea and vomiting) Qty: 20 0RF No Action ascorbic acid (vitamin C) [Vitamin C] 1,000 mg Tablet 1 g PO Q6H simethicone 125 mg Tablet 250 mg PO BID PRN (Reason: Gastrointestinal Spasms Or Cramping) meclizine 25 mg tablet 1 tab PO TID PRN (Reason: Dizziness) Magic Mouthwash Diphen/Lido/Antacid 1:1:1 240 mL Suspension 10 ml PO QID Qty: 240 6RF Rx Instructions: Lidocaine Viscous 2 % 80mL; diphenhydramine 12.5 mg/5 mL 80mL; aluminum-mag hydrox-simeth [id number]/5mL 80mL dicyclomine 10 mg capsule 2 cap PO Q6H PRN (Reason: Gastrointestinal Spasms Or Cramping) acetaminophen-codeine 300-30 mg tablet 1 tab PO Q6H PRN (Reason: pain) Qty: 20 0RF montelukast 10 mg tablet 10 mg PO DAILY pantoprazole 40 mg tablet,delayed release (DR/EC) 40 mg PO DAILY levothyroxine 88 mcg tablet 88 mcg PO DAILY albuterol sulfate 90 mcg/actuation HFA aerosol inhaler 2 puff inhalation Q4-6H PRN (Reason: Shortness Of Breath) cholecalciferol (vitamin D3) 25 mcg (1,000 unit) capsule 25 mcg PO DAILY cyanocobalamin (vitamin B-12) 1,000 mcg/mL solution 1,000 mcg IM [id number] Referrals: [facility] [place] [facility] [Provider Group] (call to schedule) Print Language: Tristanian
[2024-11-03 08:02] LABS: Appearance Urine Clear; Color Urine Yellow; Glucose Urine UA Negative (Negative); Leukocyte Esterase Urine Small (1+) (Negative); Nitrite Urine Negative (Negative); UMIC TRIGGER UACC YES; Urine Blood Negative (Negative); Urine Ketones Negative (Negative); Urine Protein Negative (Neg-Trace)
[2024-11-03 08:12] LABS: Bacteria Urine None Seen (None Seen); Hyaline Casts Urine 0-2 /LPF (0-2); RBC Urine 0-2 /HPF (0-2); Squamous Epithelial Cell Urine 0-2 /HPF (0-2); UACC Culture Trigger YES; WBC Urine 0-5 /HPF (0-5)
[2024-11-03 08:13] LABS: Troponin-I High Sensitivity < 2.7 ng/L (<3.5-17.0)
[2024-11-03 08:23] LABS: Influenza A PCR NEGATIVE (Negative); Influenza B PCR NEGATIVE (Negative); Resp Syncy Virus RNA Qual PCR NEGATIVE (Negative); SARS COV2 PCR INHOUSE NEGATIVE (Negative)
[2024-11-03] MEDS: ondansetron HCL 4 MG/2 ML VIAL IVPUSH (08:23)
--- NOTE | 2024-11-03 08:28 | PC.NURSE ---
patienta&ox3, iv inserted, labs previously drawn, urine obtained,pt refused medication for pain but wanted the zofran. 01/13 lt abd pain radiating to back, pt awaiting ct, call smith within reach, plan of care ongoing
[2024-11-03] MEDS: iohexoL 350 MG/ML 100 ML INFUS..BTL 85 ML IV (08:45)
[2024-11-03 09:42] VITALS: BP 125/59; PULSE 78; RESP 16; TEMP 36.6; O2SAT 99
[2024-11-03 10:00] VITALS: BP 125/59; PULSE 78; RESP 16; TEMP 36.6; O2SAT 99
== END 2024-11-03 10:12 | disposition home or self-care (01) ==
PROVIDERS: Emergency Provider Emergency Medicine; PCP Family Medicine
DX: R10.13 Epigastric pain (principal); M54.50 Low back pain, unspecified; R11.2 Nausea with vomiting, unspecified; I44.0 Atrioventricular block, first degree; R19.7 Diarrhea, unspecified; Z87.891 Personal history of nicotine dependence; Z79.899 Other long term (current) drug therapy; Z03.818 Encounter for observation for suspected exposure to other biological agents ruled out
CPT/HCPCS: 0241U; 74177; 80048; 80076; 81001; 83690; 84484; 85025; 87086; 93005; 96374; 99284; J2405; Q9967

== ENCOUNTER → 2024-11-03 07:28 | Outpatient (BNV) | payer MEDICARE, MEDICAID, SELFPAY | PROVIDERS: Emergency Provider Emergency Medicine; PCP Family Medicine; Visit Provider Internal Medicine | DX: I44.0 Atrioventricular block, first degree (principal); I25.2 Old myocardial infarction | CPT/HCPCS: 93010 ==

== ENCOUNTER → 2024-11-03 08:09 | Outpatient (BNV) | payer MEDICARE, MEDICAID, SELFPAY | PROVIDERS: Emergency Provider Emergency Medicine; PCP Family Medicine; Visit Provider Radiology Diagnostic Radiology | DX: K57.11 Diverticulosis of small intestine without perforation or abscess with bleeding (principal); N20.0 Calculus of kidney | CPT/HCPCS: 74177 ==

== ENCOUNTER 2025-02-10 08:33 | Outpatient (REF) | payer MEDICARE, MEDICAID, SELFPAY ==
--- OUTSIDE RECORDS SUMMARY | 2025-02-10 08:45 | XMS_ITS | Encounter Summary ---
Author Organization [employer] Address [address] [facility] [address] [place] [address] Care Team Providers Care Cosmetics Machine Operator Name Role Phone Sandy Rubi MD Primary Care Provider [phone] Encounter Details Date Type Department Care Team ([facility] st Contact Info) Description 12/10/2023 Orders Only [facility] [address] [place] [address] Sandy Rubi MD [address] [place] [address] Social History Tobacco Use Types Packs/Day Years [...] documented as of this encounter Care Teams Cosmetics Machine Operator Relationship Specialty Start Date End Date Sandy Rubi MD [address] [place] [id number] PCP - General Family Medicine 08/06/18 documented as of this encounter
--- OUTSIDE RECORDS SUMMARY | 2025-02-10 08:45 | XMS_ITS | Patient Health Record ---
Author Organization [facility] Address [address] [place] [id number] Care Team Providers Care Windrower Operator Name Role Phone Elicia PADILLA, Sandy Primary Care Provider Hugo Cain Unavailable [phone] Allergies Allergen (clinical drug ingredient) Drug/Non Drug Allergy documented on EMR Reaction Allergy Type Onset Date Status Penicillin Unknown Drug Allergy Active aspirin Aspirin Unknown Drug Allergy Active Reason For Referral No Information Medications Medication SIG (Take, Route, Frequency, Duration) Notes Start Date End Date Status Vitamin B6 50 MG 1 tablet Orally Once a day for 30 day(s) Active Vitamin C 500 MG as directed Orally Active Montelukast Sodium 10 MG TAKE 1 TABLET ( 10 MG) BY MOUTH IN THE EVENING Oral for 90 Days Active Albuterol Sulfate (2.5 MG/3ML) 0.083% 3 ml Inhalation Three times a day Active Vitamin D 1000unit 1 capsule Orally Onc e a day Active Vitamin B 12 1000mcg 1 intramuscular darryn ry month Active Meclizine HCl 25mg 1 tablet as needed Orally 3 times a day as needed Active Singulair 10 MG 1 tablet in the even ing Orally Once a day Active Pantoprazole Sodium 40 MG TAKE 1 TABLET BY MOUTH TWICE A DAY Orally Twice a day for heartburn and reflux for 90 days Active Sucralfate 1 GM TAKE 1 TABLET BY ORA L ROUTE 4 TIMES EVERY DAY ON AN EMPTY STOMACH 1 HOUR BEFORE MEALS AND AT BEDTIME Oral as directed Not-Esvin ing Levothyroxine Sodium 112 MCG 1 tablet Orally Once a day Active ProAir HFA 90mcg 2 puffs as needed Inhalation every 4 hrs Active Immunizations Vaccine Route Administration Date Status Comme nts Flu vaccine no Preserv 3 and > Unknown 04/06/2015 Admin istered Influenza Unknown 06/01/2016 Administered Influenza Unknown 09/06/2017 Administered Influenza Unknown 05/15/2018 Administered Influenza Unknown 05/14/2019 Administered Influenza Unknown 05/06/2020 Administered Influenza Unknown 06/06/2021 Administered Influenza Unknown 05/29/2023 Administered Social History Tobacco Use: Social History Observation Description Date Details (start date - stop date) Former Smoker NA - NA Tobacco Use/Smoking Question Answer Notes Patient is a former smoker When did you stop smoking? 26 Section Notes: She does not smoke nor use a ny significant amount of alcohol She does not smoke nor use a ny significant amount of alcohol She does not smoke nor use a ny significant amount of alcohol She does not smoke over 25 y ears ago nor use any significant amount of alcohol She does not smoke over 25 y ears ago nor use any significant amount of alcohol She does not smoke over 25 y ears ago nor use any significant amount of alcohol Nonsmoker > 25 years; does n ot use any significant amounts of alcohol Nonsmoker > 25 years; does n ot use any significant amounts of alcohol Nonsmoker > 25 years; does n ot use any significant amounts of alcohol Nonsmoker > 25 years; does n ot use any significant amounts of alcohol Nonsmoker > 25 years; does n ot use any significant amounts of alcohol Nonsmoker > 25 years; does n ot use any significant amounts of alcohol Problems Problem Type SNOMED Code ICD Code Onset Dates Problem Status W/U Status Risk Notes Problem 31942818 Epigastric abdominal pain (R10.13) Active confirmed Problem 7400260 Diverticulitis o f large intestine without perforation or abscess without bleeding (K57.32) Active confirmed Problem 459100464 Encounter for screening for malignant neoplasm of colon (Z12.11) Active confirmed Problem Screening for malignant neoplasm of rectum (978116788) Encounter for screening for malignant neoplasm of rectum (Z12.12) Active confirmed Problem 460088395 Gastroesophageal reflux disease without esophagitis (K21.9) Active confirmed Problem 874095088 Fatty liver (K76.0) Active confirmed Problem 304791082 Abdominal pain, left upper quadrant (R10.12) Active confirmed Problem Gastritis (8208437) Gastritis (K29.70) Active confirmed Problem 380902611 Hx of adenomatou s colonic polyps (Z86.010) Active confirmed Problem Esophageal reflux finding (468843601) Gastroesophageal reflux (K21.9) Active confirmed Problem 98470869 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, 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) Active confirmed Problem 357201636 Irritable bowel syndrome with constipation (K58.1) Active confirmed Problem 73285190 Mesenteric adeni tis (I88.0) Active confirmed Problem Diverticulosis of colon (042943057) Diverticulosis of colon (K57.30) Active confirmed Problem 87787581 Xiphoid pain (R07.89) Active confirmed Vital Signs Blood pressure diastolic 11 mm Hg 11/18/2024 Height 64 in 11/18/2024 Blood pressure systolic 111 mm Hg 11/18/2024 Weight 166 lbs 11/18/2024 BMI 28.49 kg/m2 11/18/2024 Encounters Encounter Location Date Provider Diagnosis [facility] [address] [place] [address] 11/18/2024 Hugo Jeong Gastroesophageal ref lux disease without esophagitis K21.9 ; Irritable bowel syndrome with constipation K58.1 ; Hx of adenomatous colonic polyps Z86.010 ; Abdominal pain, left upper quadrant R10.12 and Cirrhosis of liver without ascites, unspecified hepatic cirrhosis type K74.60 Assessments Encounter Date Diagnosis (ICD Code) Assessment Notes Treatment Notes Treatment Clinical Notes Section Notes 11/18/2024 Gastroesophageal reflux disease without esophagitis (ICD-10 - K21.9) Continue Pantoprazole every day Overall, Jim appears well. We did review all of her associated GI issues today. I did advise her to continue her daily pantoprazole as that does seem to be working well for her reflux. I do not think she will need any further upper endoscopies as long as things remain stable in that regard. I did advise her to continue her daily regimen of prune juice and MiraLAX for the constipation. I do not think she needs a colonoscopy this year given her clinical history and advised her of the need for the follow-up colonoscopy in 2026 for further screening. In regard to the abdominal discomfort I did advise her to use the dicyclomine as needed for the irritable bowel syndrome and cramps. I did advise her that preventing the constipation with her daily prune juice and MiraLAX will help to keep the irritable bowel and abdominal cramps stable as well. We did review that her liver disease appears to be quite stable at the present time without any sign of decompensation or liver dysfunction. Given her recent CT scan and laboratories from the ER I do not think she needs any type of imaging studies or laboratories on my part at the present time. If things remain stable I have advised her to see me in 2026 for her next colonoscopy. I did advise her to certainly call prior to that if she has any problems or questions I can be of assistance with. Jim was comfortable with this plan. Thank you again for allowing me to participate in Jim's care. I shall continue to keep you advised of her progress.. 11/18/2024 Irritable bowel syndrome with constipation (ICD-10 - K58.1) Continue dicyclomine for the abdominal cramps Continue daily prune juice and Miralax to prevent the constipation Overall, Jim appears well. We did review all of her associated GI issues today. I did advise her to continue her daily pantoprazole as that does seem to be working well for her reflux. I do not think she will need any further upper endoscopies as long as things remain stable in that regard. I did advise her to continue her daily regimen of prune juice and MiraLAX for the constipation. I do not think she needs a colonoscopy this year given her clinical history and advised her of the need for the follow-up colonoscopy in 2026 for further screening. In regard to the abdominal discomfort I did advise her to use the dicyclomine as needed for the irritable bowel syndrome and cramps. I did advise her that preventing the constipation with her daily prune juice and MiraLAX will help to keep the irritable bowel and abdominal cramps stable as well. We did review that her liver disease appears to be quite stable at the present time without any sign of decompensation or liver dysfunction. Given her recent CT scan and laboratories from the ER I do not think she needs any type of imaging studies or laboratories on my part at the present time. If things remain stable I have advised her to see me in 2026 for her next colonoscopy. I did advise her to certainly call prior to that if she has any problems or questions I can be of assistance with. Jim was comfortable with this plan. Thank you again for allowing me to participate in Jim's care. I shall continue to keep you advised of her progress.. 11/18/2024 Hx of adenomatous colonic polyps (ICD-10 - Z86.010) Repeat colonoscopy in 2026 Overall, Jim appears well. We did review all of her associated GI issues today. I did advise her to continue her daily pantoprazole as that does seem to be working well for her reflux. I do not think she will need any further upper endoscopies as long as things remain stable in that regard. I did advise her to continue her daily regimen of prune juice and MiraLAX for the constipation. I do not think she needs a colonoscopy this year given her clinical history and advised her of the need for the follow-up colonoscopy in 2026 for further screening. In regard to the abdominal discomfort I did advise her to use the dicyclomine as needed for the irritable bowel syndrome and cramps. I did advise her that preventing the constipation with her daily prune juice and MiraLAX will help to keep the irritable bowel and abdominal cramps stable as well. We did review that her liver disease appears to be quite stable at the present time without any sign of decompensation or liver dysfunction. Given her recent CT scan and laboratories from the ER I do not think she needs any type of imaging studies or laboratories on my part at the present time. If things remain stable I have advised her to see me in 2026 for her next colonoscopy. I did advise her to certainly call prior to that if she has any problems or questions I can be of assistance with. Jim was comfortable with this plan. Thank you again for allowing me to participate in Jim's care. I shall continue to keep you advised of her progress.. 11/18/2024 Abdominal pain, left upper quadrant (ICD-10 - R10.12) Overall, Jim appears well. We did review all of her associated GI issues today. I did advise her to continue her daily pantoprazole as that does seem to be working well for her reflux. I do not think she will need any further upper endoscopies as long as things remain stable in that regard. I did advise her to continue her daily regimen of prune juice and MiraLAX for the constipation. I do not think she needs a colonoscopy this year given her clinical history and advised her of the need for the follow-up colonoscopy in 2026 for further screening. In regard to the abdominal discomfort I did advise her to use the dicyclomine as needed for the irritable bowel syndrome and cramps. I did advise her that preventing the constipation with her daily prune juice and MiraLAX will help to keep the irritable bowel and abdominal cramps stable as well. We did review that her liver disease appears to be quite stable at the present time without any sign of decompensation or liver dysfunction. Given her recent CT scan and laboratories from the ER I do not think she needs any type of imaging studies or laboratories on my part at the present time. If things remain stable I have advised her to see me in 2026 for her next colonoscopy. I did advise her to certainly call prior to that if she has any problems or questions I can be of assistance with. Jim was comfortable with this plan. Thank you again for allowing me to participate in Jim's care. I shall continue to keep you advised of her progress.. 11/18/2024 Cirrhosis of liver without ascites, unspecified hepatic cirrhosis type (ICD-10 - K74.60) Overall, Jim appears well. We did review all of her associated GI issues today. I did advise her to continue her daily pantoprazole as that does seem to be working well for her reflux. I do not think she will need any further upper endoscopies as long as things remain stable in that regard. I did advise her to continue her daily regimen of prune juice and MiraLAX for the constipation. I do not think she needs a colonoscopy this year given her clinical history and advised her of the need for the follow-up colonoscopy in 2026 for further screening. In regard to the abdominal discomfort I did advise her to use the dicyclomine as needed for the irritable bowel syndrome and cramps. I did advise her that preventing the constipation with her daily prune juice and MiraLAX will help to keep the irritable bowel and abdominal cramps stable as well. We did review that her liver disease appears to be quite stable at the present time without any sign of decompensation or liver dysfunction. Given her recent CT scan and laboratories from the ER I do not think she needs any type of imaging studies or laboratories on my part at the present time. If things remain stable I have advised her to see me in 2026 for her next colonoscopy. I did advise her to certainly call prior to that if she has any problems or questions I can be of assistance with. Jim was comfortable with this plan. Thank you again for allowing me to participate in Jim's care. I shall continue to keep you advised of her progress.. Plan Of Treatment Pending Test Test Name Order Date IRON + IBC (FE) 04/21/2021 FERRITIN 04/21/2021 PROTHROMBIN TIME (PT, INR) 04/21/2021 [id number] (A1A) 04/21/2021 ALPHA-FETOPROTEIN,TUMOR MARKER 4 FLUOR. ANTINUCLEAR AB SCREEN (AKILA) 04/06 HCV LIVER FIBROSIS, FIBRO TEST Liver Fibrosis Pnl 11/28/2023 Mitochondrial Antibody 04/21/2021 Smooth Muscle Antibody 04/21/2021 Hepatitis B,C Profile 04/21/2021 Future Test Test Name Order Date COLONOSCOPY 09/14/2011 UPPER GI ENDOSCOPY 10/26/2016 COLONOSCOPY 10/26/2016 UPPER GI ENDOSCOPY 01/24/2022 COLONOSCOPY 01/24/2022 Insurance Providers Payer Name Payer Address Payer Phone Subscriber Number Group Number Insured Name Patient Relationship to Insured Coverage Start Date Coverage End Date MEDICARE OF [place] [address] [place] [id number] [phone] [id number] KATLIN [place] JIM Self - patient is the insured [facility] [address] [place] [address] [id number] [place] JIM Self - patient is the insured Medical (General) History Medical History History ICD Code Left-sided breast [id number] owed by Dr. Polanco Hypothyroidism Asthma Kidney stones Pernicious anemia Arthritis Denies ND,DM,CVA,renal disease Colonoscopy in April revealed a small tubular adenoma that was removed, as well as mild diverticulosis and small internal hemorrhoids Upper endoscopy in April 2012 revealed only a small hiatal hernia, but no evidence of any H. pylori, esophagitis, nor ulcer disease. Urinary incontinence Pulmonary embolus--on Coumadin--but fini shed in 08/2016 Denies ND,DM,CVA,renal disease Colonoscopy 01/2017--1 small tubular jabier sarthak EGD in 01/2017--HH, no esophagitis, no Ba rrett's, no gastritis, no H.pylori. Lymphoma--CT scans from 2015 -2018 with a component of some lymphadenopathy and inflammation in the mesentery--stable on CT scan in November of 2019. 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 Polanco-most recently as of 04/2021 and a followup PET-CT scan in May of 2021 was negative for any sign of residual lymphoma. Sigmoid diverticulitis in [address] scan--uncomplicated and treated with outpatient Cipro and Flagyl; recurrent episode 2022 treated with outpatient antibiotics. A CT scan in August of 2022 revealed a mild acute diverticulitis of the sigmoid colon but no sign of any complication Cirrhosis noted on imaging s tudies in 2020, although a CT scan in 2021 described the liver as normal--she had a completely negative liver workup in 2020 including viral serologies, autoimmune studies, iron studies, and alpha-1 antitrypsin level--the cirrhosis is felt to be most likely related to chronic fatty liver--she has had no complicating features such as ascites, GI bleeding, nor encephalopathy Colonoscopy in March revealed a small tubular adenoma that was removed, as well as her known diverticulosis Upper endoscopy in March of 2022 revealed a small to moderate size hiatal hernia and minimal gastritis. There was no esophagitis, Maldonado's esophagus, nor H. pylori. Surgical History Surgery Date(Month/Year) Knee 06/28 Trigger finger release Right shoulder Breast biopsy- benign - taking tamoxifen --sees Dr. Polanco [facility] Carpal tunnel--bilateral
[2025-02-10 12:23] LABS: MANUAL DIFF FLAG NO
[2025-02-10 12:28] LABS: Hematocrit 30.8 % (37.0-47.0); Hemoglobin 9.8 g/dl (12.0-16.0); Imm Gran Abs Auto 0.01 X10*3/uL (0.00-0.03); Imm Gran Pct Auto 0.2 % (0.0-0.4); Lymphocytes Absolute Auto 1.2 X10*3/uL (1.2-4.9); Mean Corpuscular HGB Conc 31.8 g/dl (31.0-35.0); Mean Corpuscular Hemoglobin 28.5 pg (27.0-33.0); Mean Corpuscular Volume 89.5 fL (80.0-98.0); NRBC Abs Auto 0.000 X10*3/uL (0.0-0.012); NRBC Pct Auto 0.0 /100WBC (0.0-0.2); Platelet Count 150 X10*3/uL (160-400); Red Blood Count 3.44 X10*6/uL (4.20-5.50); White Blood Count 4.3 X10*3/uL (4.8-10.8)
[2025-02-10 14:48] LABS: Anion Gap 10 (12-20); Blood Urea Nitrogen 12 mg/dL (9-16); Calcium 9.3 mg/dL (8.4-10.2); Carbon Dioxide 24 mmol/L (22-29); Chloride 110 mmol/L (96-108); Estimated Glomerular Filt Rate > 60; Potassium 3.7 mmol/L (3.3-5.1); Sodium 140 mmol/L (135-145); Uric Acid 5.5 mg/dL (2.4-5.7)
== END 2025-02-10 08:34 | disposition home or self-care (01) ==
LOC: HO.HHCL 08:33
PROVIDERS: PCP Family Medicine; Visit Provider Family Medicine
DX: M79.89 Other specified soft tissue disorders (principal); E03.9 Hypothyroidism, unspecified; R58 Hemorrhage, not elsewhere classified
CPT/HCPCS: 36415; 80048; 84443; 84550; 85025

== ENCOUNTER 2025-05-12 08:24 | Outpatient (REF) | payer MEDICARE, MEDICAID, SELFPAY ==
--- OUTSIDE RECORDS SUMMARY | 2025-05-12 08:50 | XMS_ITS | Encounter Summary ---
Author Organization [employer] Address [address] [facility] [address] [place] [address] Care Team Providers Care Ground Instructor Advanced Name Role Phone Sandy Rubi MD Primary Care Provider [phone] Reason for Visit * Reason Onset Date Comments Referral 01/10/2023 Encounter Details Date Type Department Care Team ([facility] st Contact Info) Description 01/10/2023 Telephone [facility] MED[facility]INE [address] [place], [place] [phone] Sandy Rubi MD [address] [place] [address] Referral Social History Tobacco Use Types Packs/Day [...] Pt would like to be sent to [facility] located at [id number] Had a previous referral but she was referred back in 2019. Fax #: [phone] Any questions please contact pt at [phone] documented in this encounter Plan of Treatment Not on file documented as of this encounter Visit Diagnoses Not on filedocumented in this encounter Additional Health Concerns Assessment Noted Time PHQ-9 Depression Total Score: 0 12/20/19 23 1:06 PM EDT documented as of this encounter Care Teams Ground Instructor Advanced Relationship Specialty Start Date End Date Sandy Rubi MD [address] [place] [address] PCP - General Family Medicine 08/06/18 documented as of this encounter
--- OUTSIDE RECORDS SUMMARY | 2025-05-12 08:50 | XMS_ITS | Clinical Summary ---
Author Organization [address] [facility] Address [address] [place] [address] Phone Care Team Providers Care Life Enrichment Assistant Name Role Phone Sandy Rubi MD Primary Care Provider [phone] Allergies No known active allergies Medications acetaminophen (TYLENOL) 500 mg tablet Take 2 tablets (1,000 mg total) by mouth 1 (one) time each day. 5 Active chlorhexidine (PERIDEX) 0.12 % solution PLEASE SEE ATTACHED FOR DETAILED DIRECTIONS 5 Active dicyclomine (BENTYL) 10 mg capsule TAKE 1-2 CAPSULES BY MOUTH EVERY 6 HOURS IF NEEDED FOR CRAMPS/DISCOMF ORT 5 Active levothyroxine (SYNTHROID, LEVOTHROID) 88 mcg tablet take 1 tablet (88 mcg) by mouth before breakfast 5 Active metroNIDAZOLE (FLAGYL) 500 mg tablet Take 1 tablet (500 mg total) by mouth every 8 (eight) hours. 4 Active montelukast (SINGULAIR) 10 mg tablet take 1 tablet (10 mg) by mouth in the evening 5 Active ondansetron ODT (ZOFRAN-ODT) 4 mg disintegrating tablet DISSOLVE 1 TABLET ORALLY EVERY 8 HOURS NEEDED FOR NAUSEA AND VOMITING 5 Active pantoprazole (PROTONIX) 40 mg EC tablet 5 Active sucralfate (CARAFATE) 100 mg/mL suspension TAKE 10 ML ORALLY 2 TIMES A DAY FOR 7 DAYS 5 Active valACYclovir (VALTREX) 1 gram tablet TAKE 2 TABLETS (2,000 MG) BY MOUTH ONCE PER DAY FOR 1 DAY. 5 Active diclofenac (Voltaren Arthritis Pain) 1 % topical gel Apply 4 g topically 2 (two) times a day. 240 g 1 5 025 Active diclofenac (Voltaren Arthritis Pain) 1 % topical gel Apply 4 g topically 2 (two) times a day. 240 g 1 5 025 Active Encounters Date Type Department Care Team Description 04/30/2025 Telephone Orthopedic Surgery [facility] [address] [phone] César Barbosa DPM 04/29/2025 9:45 AM EDT Consult Orthopedic [facility] [address] [phone] César Barbosa DPM Peripheral venous insufficiency (Primary Dx); Pain in right foot; Plantar fascial fibromatosis; Neuritis from Last 3 Months Social History Tobacco Use Types Packs/Day Years Used Date Smoking Tobacco: Never Assessed Comments Unknown Sex and Gender Information Value Date Recorded Sex Assigned at Not on file Legal Sex Female 7:40 AM EST Gender Identity Not on file Sexual Orientation Not on file Plan of Treatment Upcoming Encounters Date Type Department Care Team (Late st Contact Info) Description 07/28/2025 9:45 AM EST Office Visit Orthopedic [place] [address] [phone] César Barbosa DPM [address] [phone] Health Maintenance Due Date Last Done Comments Colorectal Cancer Screening: Colonoscopy 1950 Zoster Vaccines (2 of 2) 01/06/2022 11/11/2021, 01/04 Depression Screening 08/06/2024 RSV Immunization Adult Patients (1 - 1-dose 75+ series) 2024 Falls Risk Assessment 02/10/2025 Hepatitis C Screening 02/10/2025 Medicare Annual Wellness Visit 02/10/2025 Osteoporosis Screening (Bone Density Screening) 02/10/2025 Social Influencers of Health Screening 02/10/2025 Hepatitis B Vaccines (2 of 3 - Risk 3-dose series) 02/26/2025 01/29/2025 COVID-19 Vaccine ( - season) 2025 05/31/2022, 08/03/2021, 10/21/2020, Additional history exists Influenza Vaccine (#1) 2025 , 05/29/2023, 05/31/2022, Additional history exists Hepatitis A Vaccines (2 of 2 - Risk 2-dose series) 07/31/2025 01/29/2025 DTaP,Tdap,and Td Vaccines (5 - Td or Tdap) 07/05/2033 07/05/2023, 01/21/2013, 03/07/2010, Additional history exists MMR Vaccines Aged Out 11/29/2000 No longer eligi ble based on patient's age to complete this topic Pneumococcal Vaccine: 50+ Years Completed 07/20/2016, 12/30/2015, 09/03/2014 HIB Vaccines Aged Out No longer eligi ble based on patient's age to complete this topic HPV Vaccines Aged Out No longer eligi ble based on patient's age to complete this topic IPV Vaccines Aged Out No longer eligi ble based on patient's age to complete this topic Meningococcal ACWY Vaccine Aged Out N o longer eligible based on patient's age to complete this topic Meningococcal B Vaccine Aged Out No l onger eligible based on patient's age to complete this topic RSV Immunization Patients Under 20 months Aged Out No longer eligible based on patient's age to complete this topic Varicella Vaccines Aged Out No longer eligible based on patient's age to complete this topic Insurance MEDICARE MEDICAID - [place] Care Teams Life Enrichment Assistant Relationship Specialty Start Date End Date Sandy Rubi MD [address] [place] [phone] PCP - General Family Medicine 02/10/25
--- OUTSIDE RECORDS SUMMARY | 2025-05-12 08:50 | XMS_ITS | Encounter Summary ---
Author Organization [employer] Address [address] [facility] 7[address] [place] [address] Care Team Providers Care Law Researcher Name Role Phone Sandy Rubi MD Primary Care Provider [phone] Encounter Details Date Type Department Care Team (Late st Contact Info) Description 01/10/2023 Orders Only [facility] [address] [place] [address] Sandy Rubi MD [address] [place] [address] Right foot pain (Primary Dx); Primary osteoarthritis [...] Noted Time PHQ-9 Depression Total Score: 0 05/16/20 23 1:06 PM EDT documented as of this encounter Care Teams Law Researcher Relationship Specialty Start Date End Date Sandy Rubi MD [address] [place] [phone] PCP - General Family Medicine 08/06/18 documented as of this encounter
--- OUTSIDE RECORDS SUMMARY | 2025-05-12 08:50 | XMS_ITS | Encounter Summary ---
Author Organization [employer] Address [address] [facility] 7[address] [place] [address] Care Team Providers Care Referral Agent Name Role Phone Sandy Rubi MD Primary Care Provider [phone] Encounter Details Date Type Department Care Team ([facility] st Contact Info) Description 12/10/2023 Orders Only [facility] [address] [place] [address] Sandy Rubi MD [address] [place] [address] Social History Tobacco Use Types Packs/Day Years [...] documented as of this encounter Care Teams Referral Agent Relationship Specialty Start Date End Date Sandy Rubi MD [address] [place] [id number] PCP - General Family Medicine 08/06/18 documented as of this encounter
--- OUTSIDE RECORDS SUMMARY | 2025-05-12 08:51 | XMS_ITS | Encounter Summary ---
Author Organization [employer] Address [address] [facility] 7t [place] [address] Care Team Providers Care Recreation Activities Coordinator Name Role Phone Sandy Rubi MD Primary Care Provider [phone] Encounter Details Date Type Department Care Team ([facility] st Contact Info) Description 05/25/2023 Orders Only [facility] [address] [place] [address] Sandy Rubi MD [address] [place] [address] Social History Tobacco Use Types Packs/Day Years [...] documented as of this encounter Care Teams Recreation Activities Coordinator Relationship Specialty Start Date End Date Sandy Rubi MD [address] [place] [address] PCP - General Family Medicine 08/06/18 documented as of this encounter
--- OUTSIDE RECORDS SUMMARY | 2025-05-12 08:51 | XMS_ITS | Patient Health Record ---
Author Organization [facility] Address [address] [place] [phone] Care Team Providers Care Resource Center Teacher Name Role Phone Elicia PADILLA, Sandy Primary Care Provider Hugo Cain Unavailable [phone] Allergies Allergen (clinical drug ingredient) Drug/Non Drug [...] THE EVENING Oral for 90 Days Active Vitamin D 1000unit 1 capsule Orally [...] as needed Inhalation every 4 hrs Active Albuterol Sulfate (2.5 MG/3ML) 0.083% 3 ml Inhalation Three times a day Active Dicyclomine HCl 10 MG TAKE 1-2 CAPSULES BY MOUTH EVERY 6 HOURS IF NEEDED FOR CRAMPS/DISCOMFORT Orally Every 6 hours if needed for cramps /discomfort for 90 days Active Immunizations Vaccine Route Administration Date Status [...] Problem Status W/U Status Risk Notes Problem 73358036 Epigastric abdominal pain (R10.13) Active confirmed Problem 1221560 Diverticulitis o f large intestine without perforation or abscess without bleeding (K57.32) Active confirmed Problem 550106012 Encounter for screening for malignant neoplasm of colon (Z12.11) Active confirmed Problem Screening for malignant neoplasm of rectum (635742180) Encounter for screening for malignant neoplasm of rectum (Z12.12) Active confirmed Problem 603090014 Gastroesophageal reflux disease without esophagitis (K21.9) Active confirmed Problem 823912217 Fatty liver (K76.0) Active confirmed Problem 077241135 Abdominal pain, left upper quadrant (R10.12) Active confirmed Problem Gastritis (9767463) Gastritis (K29.70) Active confirmed Problem 612053272 Hx of adenomatou s colonic polyps (Z86.010) Active confirmed Problem Esophageal reflux finding (101105010) Gastroesophageal reflux (K21.9) Active confirmed Problem 06896867 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, 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) Active confirmed Problem 130672079 Irritable bowel syndrome with constipation (K58.1) Active confirmed Problem 53463167 Mesenteric adeni tis (I88.0) Active confirmed Problem Diverticulosis of colon (685226711) Diverticulosis of colon (K57.30) Active confirmed Problem 60203201 Xiphoid pain (R07.89) Active confirmed Vital Signs Blood pressure diastolic 11 mm Hg 11/18/2024 Height 64 in 11/18/2024 Blood pressure systolic 111 mm Hg 11/18/2024 Weight 166 lbs 11/18/2024 BMI 28.49 kg/m2 11/18/2024 Encounters Encounter Location Date Provider Diagnosis [facility] [address] [place] [phone] 11/18/2024 Hugo Jeong Gastroesophageal ref lux disease without esophagitis K21.9 ; Irritable bowel syndrome with constipation K58.1 ; Hx of adenomatous colonic polyps Z86.010 ; Abdominal pain, left upper quadrant R10.12 and Cirrhosis of liver without ascites, unspecified hepatic cirrhosis type K74.60 [facility] [address] [place] [phone] 04/21/2025 Hugo Jeong Assessments Encounter Date Diagnosis (ICD Code) Assessment Notes Treatment Notes Treatment Clinical Notes Section Notes 11/18/2024 Gastroesophageal reflux disease without esophagitis (ICD-10 - K21.9) Continue Pantoprazole every day Overall, Anisha appears well. We did review all of [...] and Miralax to prevent the constipation Overall, Anisha appears well. We did review all of [...] - Z86.010) Repeat colonoscopy in 2026 Overall, Anisha appears well. We did review all of [...] left upper quadrant (ICD-10 - R10.12) Overall, Anisha appears well. We did review all of [...] type (ICD-10 - K74.60) Overall, Anisha appears well. We did review all of [...] FERRITIN 04/21/2021 PROTHROMBIN TIME (PT, INR) 04/21/2021 [id number] (A1A) 04/21/2021 ALPHA-FETOPROTEIN,TUMOR MARKER 4 FLUOR. ANTINUCLEAR [...] OF [place] [address] ZAHEER CARDOZO [address] [phone] [id number] ROCKYMACARIOAlcides Ludy ANISHA Self - patient is the insured MEDICAID OF [facility] [address] [place] [address] [phone] [id number] ROCKYALLYSON Ludy ANISHA Self - patient is the insured Medical (General) History Medical History History ICD Code Left-sided breast [id number] owed by Dr. Polanco Hypothyroidism Asthma Kidney stones Pernicious anemia Arthritis Denies TN,DM,CVA,renal disease Colonoscopy in April revealed a small tubular adenoma that was removed, as well as mild diverticulosis and small internal hemorrhoids Upper endoscopy in April 2012 revealed only a small hiatal hernia, but no evidence of any H. pylori, esophagitis, nor ulcer disease. Urinary incontinence Pulmonary embolus--on Coumadin--but jahaira shed in 08/2016 Denies TN,DM,CVA,renal disease Colonoscopy 01/2017--1 small tubular jabier sarthak [...]
--- OUTSIDE RECORDS SUMMARY | 2025-05-12 08:51 | XMS_ITS | Clinical Summary ---
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 Active cyanocobalamin (Vitamin B-12) 1000 MCG/ML injection Inject 1 mL into the shoulder, thigh, or buttocks. Active dicyclomine (Bentyl) 10 MG capsule TAKE 1-2 CAPSULES BY MOUTH EVERY 6 HOURS NEEDED FOR CRAMPS/DISCOMFO RT Active cholecalciferol (Vitamin D3) 200 Unit tablet split tablet 25 mcg. Active meclizine (Antivert) 25 MG tablet Take 1 tablet (25 mg) by mouth if needed in the morning, at noon, and at bedtime for dizziness. 30 tablet 3 023 Active simethicone (Mylicon,Gas-X) 180 MG capsule Take 1 capsule by mouth every 6 hours as needed for gas pain 120 capsule 3 023 Active clotrimazole (Mycelex) 10 MG almaz TAKE 1 TABLET BY MOUTH 4 TIMES A DAY ALLOW TO DISSOLVE SLOWLY 120 Almaz 3 023 Active Ventolin HFA 108 (90 Base) MCG/ACT inhaler INHALE 2 PUFF BY MOUTH EVERY 4 - 6 HOURS NEEDED FOR DIFFICULTY BREATHING, 4 TIMES / DAY 18 g 3 024 Active cyclobenzaprine (Flexeril) 10 MG tablet Take 1 tablet (10 mg) by mouth 3 times daily for 10 days. 30 tablet 024 Active albuterol (2.5 MG/3ML) 0.083% nebulizer solution Take 3 mL (2.5 mg) by nebulization every 4 (four) hours if needed for wheezing or shortness of breath (Maximum 4 treatments per day). 75 mL 1 024 Active HYDROcodone Bit-Homatrop MBr 5-1.5 MG/5ML solution Take 5 mL by mouth every 4 (four) hours if needed (cough). 473 mL 024 Active levothyroxine (Synthroid, Levoxyl) 88 MCG tabletIndications :Acquired hypothyroidism Take 1 tablet (88 mcg) by mouth before breakfast. 90 tablet 3 024 Active montelukast (Singulair) 10 MG tablet Take 1 tablet (10 mg) by mouth in the evening. 90 tablet 3 024 Active magic mouthwash (lidocaine, diphenhydrAMINE, Maalox 1:1:1) Swish and spit 15 mL every 4 (four) hours if needed for mucositis or stomatitis (oral pain). 450 each 025 Active pantoprazole (ProtoNix) 40 MG EC tablet Take 1 tablet (40 mg) by mouth before breakfast. Do not crush, chew, or split. 180 tablet 3 025 Active acetaminophen (Tylenol Extra Strength) 500 MG tablet Take one or two tablets by mouth every 8 hours as needed for pain or fever. Maximum 6 tablets per day. 90 tablet 3 025 Active lidocaine (Lidoderm) 5 % patchIndications: Postherpetic neuralgia Apply 1 patch topically Once per day. Remove & discard patch within 12 hours or as directed by . 30 patch 11 024 2024 Discontinued(M ed list cleanup (will not trigger notification to Pharmacy)) magnesium oxide (Mag-Ox) 400 MG tablet Take 1 tablet (400 mg) by mouth Once per day. 90 tablet 3 025 2024 Discontinued(M ed list cleanup (will not trigger notification to Pharmacy)) Active Problems Problem Noted Date Diagnosed Date Severe dental caries 02/10/2025 Pain, dental 02/10/2025 Stomatitis 01/26/2025 Assessment & Plan (02/08/2025 7:31 AM EDT): - She in the walk-in clinic on 01/26/2025 and was started on valacyclovir - Complete valacyclovir - Possible increased life stressor. Discussed about the relationship between stress and immune system Assessment & Plan (01/26/2025 11:51 AM EDT): Most linear left TMJ area, unclear if it is viral (? HSV) or secondary to previous XRT. Advised to use Magic compound affected area prior to meals, can take Tylenol as needed pain I will Rx valacyclovir as it may be related to underlying HSV infection, follow- up with PCP [facility] on back 04/15/2024 Overview (04/15/2024): - palpable, tender - evaluate with ultrasound Assessment & Plan (04/15/2024 9:01 AM EDT): - palpable, tender - evaluate with ultrasound - advised to patient to have a marking either by us or family member prior to the US. Postherpetic neuralgia 04/14/2024 Assessment & Plan (01/31/2025 8:39 AM EDT): - right T7 or T8 dermatome - trial of lidocaine patch Assessment & Plan (04/15/2024 8:57 AM EDT): - right T7 or T8 dermatome - trial of lidocaine patch History of shingles 04/14/2024 Assessment & Plan (01/31/2025 8:38 AM EDT): - Likely right T7/8 dermatome - trial of lidocaine patch Assessment & Plan (04/15/2024 8:59 AM EDT): - Likely right T7/8 dermatome - trial of lidocaine patch H/O meniscectomy of right knee 11/07/2023 Tear of medial meniscus of right knee 05/15/2023 Assessment & Plan (08/11/2023 6:07 AM EST): - MRI on 04/16/23 showed lateral and medial meniscus tear of right knee - Following with Dr. Mitchell at [facility] - s/p right knee partial medial and [...] knee - Following with Dr. Mitchell at [facility] - s/p right knee partial medial and lateral meniscectomies, chondroplasty, and plica excision on 06/22/23 - continue APAP prn Assessment & Plan (05/15/2023 4:54 PM EDT): - MRI on 04/16/23 showed lateral and medial meniscus tear of right knee - Following with Dr. Mitchell - Anticipating a surgery in June - continue APAP prn Leg cramp 05/15/2023 Assessment & Plan (04/26/2025 6:12 AM EDT): - periodic check in electrolytes - encourage stretching exercise - normal vascular evaluation - she has tried magnesium, which was not effective - recommend pickles juice / brine. - will consider trying vitamin K2 Assessment & Plan (10/06/2024 5:48 AM EST): - periodic check in electrolytes - encourage stretching exercise - normal vascular evaluation - will try magnesium - recommend pickles juice / brine. - will consider trying vitamin K2 Assessment & Plan (05/15/2023 5:15 PM EDT): - periodic check in electrolytes - encourage stretching exercise Chronic pain of right knee 05/15/2023 Assessment & Plan (01/31/2025 8:38 AM EDT): MRI on 04/16/23 showed: 1. Complex tear of the body and posterior horn of the medial meniscus. 2. [id number] patellofemoral arthrosis. 3. Mild medial compartment arthrosis. [...] this suspected benign lesion. Continue APAP prn Assessment & Plan (05/15/2023 5:15 PM EDT): MRI on 04/16/23 showed: 1. Complex tear of the body and posterior horn of the medial meniscus. 2. [id number] patellofemoral arthrosis. 3. Mild medial compartment arthrosis. 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 - Treated with Coumadin while pt was on tamoxifen - No recurrece AMANDA positive 02/27/2023 Overview (02/27/2023): - already evaluated by motorcycle mechanic, last seen in 2019 - no rheumatological abnormality, pt has hypothyroidism - consider repeating lab Assessment & Plan (05/15/2023 5:17 PM EDT): - evaluated by motorcycle mechanic and was given a reassurance that she does not have rheumatological problem Right foot pain 12/23/2022 Assessment & Plan (01/31/2025 8:39 AM EDT): -Mar 2022 X-ray showed OA -Seen by automotive brake technician and Dx plantar fasciitis -Continue ice, stretching exercise, and APAP prn -Continue wearing comfortable shoes. Assessment & Plan (04/15/2024 8:58 AM EDT): -Mar 2022 X-ray showed OA -Seen by automotive brake technician and Dx plantar fasciitis -Continue ice, stretching exercise, and APAP prn -Continue wearing comfortable shoes. Assessment & Plan (12/23/2022 6:32 PM EDT): -Mar 2022 X-ray showed OA -Seen by automotive brake technician and Dx plantar fasciitis -Continue ice, stretching [...] (pt had an adverse reaction with levofloxacin) Irritable bowel syndrome with constipation 12/18 Assessment & Plan (01/31/2025 8:36 AM EDT): - Evaluated by Dr. Jeong, GI, last seen in 2021 - continue simethicone prn - continue dicyclomine prn Assessment & Plan (05/15/2023 5:08 PM EDT): - Evaluated by Dr. Jeong, GI, last seen in 2021 - continue simethicone prn - continue dicyclomine prn Metabolic dysfunction-associ ated steatotic liver disease (MASLD) 12/18/2022 Assessment & Plan (04/26/2025 6:08 AM EDT): - evaluated by GI, and was [...] with GI as scheduled Assessment & Plan (01/31/2025 8:36 AM EDT): - evaluated by GI, and was [...] with GI as scheduled Assessment & Plan (10/06/2024 5:52 AM EST): [...] 12/18/2022 Plantar fasciitis 12/18/2022 Assessment & Plan (01/31/2025 8:38 AM EDT): -Mar 2022 X-ray showed OA -Seen by automotive brake technician and Dx plantar fasciitis -Continue ice, stretching exercise, and APAP prn -Continue wearing comfortable shoes. Assessment & Plan (05/15/2023 5:14 PM EDT): -Mar 2022 X-ray showed OA -Seen by automotive brake technician and Dx plantar fasciitis -Continue ice, stretching exercise, and APAP prn -Continue wearing comfortable shoes. Assessment & Plan (12/18/2022 6:12 PM EDT): -Mar 2022 X-ray showed OA -Seen by automotive brake technician and Dx plantar fasciitis -Continue ice, stretching exercise, and APAP prn -Continue wearing comfortable shoes. Osteopenia 12/18/2022 Assessment & Plan (01/31/2025 8:36 AM EDT): - last DEXA on 04/08/22, mild osteopenia, T-score -1.1 in femoral neck Assessment & Plan (05/15/2023 5:14 PM EDT): - last DEXA on 04/08/22, mild osteopenia, T-score -1.1 in femoral neck Assessment & Plan (12/18/2022 6:27 PM EDT): - last DEXA on 04/08/22, mild osteopenia, T-score -1.1 in femoral neck B-cell lymphoma (CMS/HCC) 12/18/2022 Assessment & Plan (04/26/2025 6:11 AM EDT): -diagnosed in October 2020 -low grade B-cell lymphoma -PET 10/20/20 FDG avid retroperitoneal and mesenteric lymph nodes -Echocardiogram on 10/26/20 Normal EF -s/p 6 cycles of R-CHOP chemotherapy (bendamustine / ritusimab from 11/11/20 to 04/07/21) -Following with Oncologist, Dr. Tan, last seen in November 2024. No sign of recurrence. Most recent CT in Aug 2022 showed no adenoapthy. -Currently in remission; continue following up with oncologist and surveillance per oncologist. Assessment & Plan (01/31/2025 8:37 AM EDT): -diagnosed in October 2020 -low grade [...] and surveillance per oncologist. Assessment & Plan (08/11/2023 6:10 AM EST): [...] per oncologist. Asthma 12/18/2022 Assessment & Plan (01/31/2025 8:39 AM EDT): -Most recent exacerbation, 01/01/19-01/03/19, requiring hospitalization. Treated w/ steroids and azithromycin. 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 -no longer taking inhaled cortisol steroid. -continue using Albuterol prn. -continue montelukast for allergic rhinitis Judicious use of Hydrocodone - Homatropines cough syrup prn when she has bronchitis. Assessment & Plan (09/29/2024 10:57 AM EST): [...] cough syrup prn when she has bronchitis. History of diverticulitis 12/18/2022 Assessment & Plan (01/29/2025 4:38 AM EDT): >>ASSESSMENT AND PLAN FOR HISTORY OF DIVERTICULITIS OF COLON WRITTEN ON 12/23/2022 6:36 PM BY SHANEL RUBI MD - most recent episode on 08/21/22, no perforation or abscess - outpatient treatment with metronidazole and levofloxacin - following with GI 03/10/22 Pt underwent EGD and colonoscopy by Dr. Jeong. Dx colonic polyp (tubular adenoma); diverticulosis, internal hemorrhoids, hiatal hernia, mild gastritis. Recommended to repeat colonoscopy in 5 years and pantoprazole. Assessment & Plan (01/29/2025 4:38 AM EDT): >>ASSESSMENT AND PLAN FOR HISTORY OF DIVERTICULITIS OF COLON WRITTEN ON 05/15/2023 5:23 PM BY SHANEL RUBI MD - most recent episode on 08/21/22, no perforation or abscess - outpatient treatment with metronidazole and levofloxacin - following with GI - 03/10/22 EGD and colonoscopy by Dr. Jeong. Dx colonic polyp (tubular adenoma); diverticulosis, internal hemorrhoids, hiatal hernia, mild gastritis. Assessment & Plan (10/06/2024 5:55 AM EST): - diverticulitis of proximal sigmoid colon in Aug 2022 s/p treatment with metronidazole and ciprofloxacin (pt had an adverse reaction with levofloxacin) - diverticulitis of proximal sigmoid colon in May 2024 s/p treatment with metronidazole and levofloxacin (patient tolerated levofloxacin) Allergic rhinitis 12/15/2022 Assessment & Plan (04/26/2025 6:04 AM EDT): - continue cetirizine and montelukast - she states she does not become dizzy with cetirizine and does not want to change to other antihistamine or decrease dosage. Assessment & Plan (01/31/2025 8:34 AM EDT): - continue cetirizine and montelukast - she states she does not become dizzy with cetirizine and does not want to change to other antihistamine or decrease dosage. Assessment & Plan (05/15/2023 5:24 PM EDT): - continue cetirizine and montelukast - she states she does not become dizzy with cetirizine and does not want to change to other antihistamine or decrease dosage. 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 Assessment & Plan (01/31/2025 8:35 AM EDT): Most recent TSH was therapeutic, 0.41 in November 2023 Continue levothyroxine 88 mcg daily. Assessment & Plan (09/29/2024 10:57 AM EST): [...] degree atrioventricular block 12/13/2012 Assessment & Plan (04/26/2025 6:03 AM EDT): - most recent EKG on 04/14/2025, borderline MN. Last EKG in 2021 in [facility] shows MN 202 ms - review medications - will consider Holter monitor her palpitation becomes more frequent Assessment & Plan (05/15/2023 5:06 PM EDT): - most recent EKG in 2021 in [facility] shows MN 202 ms - review medications - asymptomatic, except dizziness which seems to be BPPV Benign paroxysmal positional vertigo 08/19/2012 Assessment & Plan (04/26/2025 6:04 AM EDT): - continue meclizine prn Assessment & Plan (01/31/2025 8:35 AM EDT): - continue meclizine prn Assessment & Plan (05/15/2023 5:23 PM EDT): - continue meclizine prn Gastroesophageal reflux disease 05/06/2012 Assessment & Plan (04/26/2025 6:08 AM EDT): -GI: Dr. Jeong -Most recent EGD on 03/30/22, mild gastritis -continue Pantoprazole. -continue simethicone prn gas pain - no longer on famotidine Assessment & Plan (01/31/2025 8:36 AM EDT): -GI: Dr. Jeong -Most recent EGD on 03/30/22, mild gastritis -continue Pantoprazole. -continue simethicone prn gas pain - no longer on famotidine Assessment & Plan (10/06/2024 5:54 AM EST): [...] famotidine Kidney stone 05/06/2012 Assessment & Plan (04/26/2025 6:09 AM EDT): -recurrent Kidney Stones -First right kidney stone diagnosed in December 2012. Treatment Hx: December 2012 cystostopy, ureteroscopy, laser stone ablation, stone extraction, stent placement. January 2013 Right ECSWL May 2013 Right ECSWL May 2019 Right ESWL February 2023 Right ESWL -Followed by [facility] Urology provider, last seen on 06/12/24 -Most recent US in May 2024 showed right kidney stone, nonobstructive, 8 mm. -Continue drinking water 2L / day, with addition of lemon juice -Continue vitamin B6 100 mg daily Assessment & Plan (01/31/2025 8:37 AM EDT): -recurrent Kidney Stones -First right kidney stone diagnosed in December 2012. Treatment Hx: December 2012 cystostopy, ureteroscopy, laser stone ablation, stone extraction, stent placement. January 2013 Right ECSWL May 2013 Right ECSWL May 2019 Right ESWL February 2023 Right ESWL -Followed by [facility] Urology provider, last seen on 06/12/24 -Most recent US in May 2024 showed right kidney stone, nonobstructive, 8 mm. -Continue drinking water 2L / day, with addition of lemon juice -Continue vitamin B6 100 mg daily Assessment & Plan (10/06/2024 5:57 AM EST): -recurrent Kidney Stones -First right kidney stone diagnosed in December 2012. Treatment Hx: December 2012 cystostopy, ureteroscopy, laser stone ablation, stone extraction, stent placement. January 2013 Right ECSWL May 2013 Right ECSWL May 2019 Right ESWL February 2023 Right ESWL -Followed by [facility] Urology provider, last seen on 06/12/24 -Most [...] ESWL February 2023 Right ESWL -Followed by [facility] Urology provider, last seen on 02/23/23 -Most [...] ESWL February 2023 Right ESWL -Followed by [facility] Urology provider, last seen on 02/23/23 -Most [...] ECSWL May 2019 Right ESWL -Followed by [facility] Urology provider, last seen on 10/17/22 -Most recent CT on 08/21/22 showed 5 mm non-obstructive kidney stone -KUB on 10/09/22 showed non-obstructive 5 mm right kidney stone -Continue drinking water 2L / day, with addition of lemon juice -Continue vitamin B6 100 mg daily - follow up with urologist after US in 3 mo Tubular adenoma of colon 05/06/2012 Assessment & Plan (01/31/2025 8:37 AM EDT): - colonoscopy by Dr. Jeong on 03/10/22, tubular adenoma Assessment & Plan (05/15/2023 5:07 PM EDT): - colonoscopy by Dr. Jeong on 03/10/22, tubular adenoma Assessment & Plan (12/18/2022 6:19 PM EDT): - colonoscopy by Dr. Jeong on 03/10/22, tubular adenoma Lobular carcinoma in situ of breast 03/25/2012 Assessment & Plan (04/26/2025 6:11 AM EDT): Dx: Lobular Carcinoma in situ of the left breast in April 2011 Tx: s/p Lumpectomy and radiation. Tamoxifen June 2011 - June 2016; complicated by pulmonary embolism Oncologist: Dr. Polanco, last seen in November 2024 Last Screening b/l Mammo on 10/10/24 BI-RADS2, annual screening schedule She has completed 5 years of tamoxifen treatment. Continue surveillance per protocol and follow-up appt with Dr. Polanco. Assessment & Plan (01/31/2025 8:37 AM EDT): Dx: Lobular Carcinoma in situ of [...] appt with Dr. Polanco. Assessment & Plan (08/11/2023 6:10 AM EST): [...] protocol and follow-up appt with Dr. Polanco. Osteoarthritis 03/25/2012 Assessment & Plan (09/29/2024 10:57 [...] Vitamin D deficiency 03/25/2012 Assessment & Plan (02/08/2025 7:40 AM EDT): - secondary hyperparathyroidism - last vitamin D level was normal in Apr 2023 - continue vitamin D supplementation Assessment & Plan (09/29/2024 10:58 AM EST): [...] B12 deficiency anemia 03/25/2012 Assessment & Plan (04/14/2025 1:10 PM EDT): - following with Dr. Polanco - continue vitamin B12 IM monthly at [facility] Heme / Onc - continue folic acid supplement Assessment & Plan (01/31/2025 8:37 AM EDT): - following with Dr. Polanco - continue vitamin B12 IM monthly at [facility] Heme / Onc - continue folic acid supplement Assessment & Plan (09/29/2024 10:57 AM EST): - following with Dr. Polanco - continue vitamin B12 IM monthly at [facility] Heme / Onc - continue folic acid supplement Assessment & Plan (11/07/2023 5:26 AM EDT): - following with Dr. Polanco - continue vitamin B12 IM monthly at [facility] Heme / Onc - continue folic acid supplement Assessment & Plan (11/07/2023 5:25 AM EDT): >>ASSESSMENT AND PLAN FOR PERNICIOUS ANEMIA WRITTEN ON 12/18/2022 6:36 PM BY SHANEL RUBI MD - following with Dr. Polanco - continue vitamin B12 IM monthly at [facility] Heme / Onc - continue folic acid supplement Assessment & Plan (11/07/2023 5:25 AM EDT): >>ASSESSMENT AND PLAN FOR PERNICIOUS ANEMIA WRITTEN ON 05/15/2023 5:17 PM BY SHANEL RUBI MD - following with Dr. Polanco - continue vitamin B12 IM monthly at [facility] Heme / Onc - continue folic acid supplement Assessment & Plan (11/07/2023 5:25 AM EDT): >>ASSESSMENT AND PLAN FOR PERNICIOUS ANEMIA WRITTEN ON 08/11/2023 6:09 AM BY SHANEL RUBI MD - following with Dr. Polanco - continue vitamin B12 IM monthly at [facility] Heme / Onc - continue folic acid supplement Obesity (BMI 30.0-34.9) 03/25/2012 Assessment & Plan (01/31/2025 8:35 AM EDT): Dietary Recommendations: Fruits, vegetables, whole grains, protein [...] equivalent combination of moderate- and vigorous-intensity activity Assessment & Plan (10/06/2024 5:40 AM EST): [...] equivalent combination of moderate- and vigorous-intensity activity Resolved Problems Problem Noted Date Diagnosed Date Resolved Date Elevated BP without diagnosis of hypertension 11/09/19 24 02/08/2025 Assessment & Plan (11/09/2023 6:05 PM EDT): - Pt attributes this to stress. - Advised pt to monitor BP at home. - Continue lifestyle modifications. - Will continue to monitor. History of adenomatous polyp of colon 12/18/2022 12/18/2022 Left lower quadrant pain 12/15/2022 Restless legs 07/18/2013 05/15/2023 Migraine with aura 03/25/2012 Sinusitis 03/25/2012 05/15/2023 Encounters Date Type Department Care Team Description 05/12/[address] [facility] [address] [place] [id number] Shanel Rubi MD Acquired hypothyroidism (Primary Dx); Osteopenia of neck of femur, unspecified laterality 04/14/2025 1:30 PM EDT Office Visit [facility] [address] [place] [id number] Shanel Rubi MD Acquired hypothyroidism (Primary Dx); Lobular carcinoma in situ (LCIS) of left breast; Anemia due to vitamin B12 deficiency, unspecified B12 deficiency type; Leg cramp; Palpitation; First degree atrioventricular block; History of pulmonary embolism; Allergic rhinitis, unspecified seasonality, unspecified trigger; Benign paroxysmal positional vertigo, unspecified laterality; Metabolic dysfunction-associated steatotic liver disease (MASLD); Gastroesophageal reflux disease, unspecified whether esophagitis present; Kidney stone; B-cell lymphoma of intra-abdominal lymph nodes, unspecified B-cell lymphoma type (CMS/HCC) 04/14/2025 Travel 04/13/2025 Travel 04/13/[address] [id number] Shanel Rubi MD chart prep 02/19/[address] [phone] Monse Silva MA april02/11/2025 Results Follow-Up [address] [id number] Shanel Rubi MD Basic Metabolic Panel, CBC auto differential, TSH with Reflex to Free T4, Uric acid 02/10/2025 11:30 AM EDT Office Visit [facility] ADULT DENTAL [address] [place] [id number] Cole Herrmann DDS Severe dental caries (Primary Dx); Pain, dental from Last 3 Months Immunizations Immunization Administration Dates Next Due Hep A, Adult 01/29/2025 Hep B, adult 01/29/2025 Influenza High-dose Quadriva lent Preservative Free 07/05/2023,05/31/2022 [...] housing situation today? I have sudha ferrer 01/29/[address] you li ve. Do you have problems with any of the following? None of the above 01/29/2025 Food Insecurity Answer Date Recorded Within the past 12 months, y ou worried that your food would run out before you got money to buy more: Never True 01/29/2025 Within the past 12 months,th e food you bought just didn't last and you didn't have enough money to get more: Never True Transportation Answer Date Recorded In the past 12 months, has l ack of transportation kept you from medical appts, meetings, work or from getting things needed for daily living? No 01/29/2025 Utilities Answer Date Recorded In the past 12 months, has t he electric, gas, oil or water company threatened to shut off services in your home? No 01/29/2025 Depression Answer Date Recorded Patient Health Questionnaire-2 Score 0 04/14/2024 Internet Access Answer Date Recorded Internet Access Q1 Yes 01/29/2025 Internet Access Q2 Not on file 01/29/2025 Comments Unknown Sex and Gender Information Value Date Recorded Sex Assigned at Female 06/05/2022 10:14 AM EDT Legal Sex Female 10:14 AM EDT Gender Identity Female 06/05/2022 10:14 AM EDT Sexual Orientation Straight 06/05/2022 10 :14 AM EDT Last Filed Vital Signs Vital Sign Reading Time Taken Comments Blood Pressure 100/78 04/14/2025 1:14 PM EDT Pulse 71 04/14/2025 1:14 PM EDT Temperature 36.3 C (97.3 F) 04/14/2025 1:14 PM EDT Respiratory Rate 18 04/14/2025 1:14 PM EDT Oxygen Saturation 98% 04/14/2025 1:14 PM EDT Inhaled Oxygen Concentration - - Weight 74.9 kg (165 lb 3.2 oz) 04/14/2025 1:14 P M EDT Height 154.9 cm (5' 1 ) 04/14/2025 1:14 PM EDT Body Mass Index 31.21 04/14/2025 1:14 PM EDT Plan of Treatment Health Maintenance Due Date Last Done Comments CT Colonography 1950 Dental Oral Exam 1950 Dental Prophylaxis 1950 Dental X-Ray: Bitewings 1950 Dental X-Ray: Full Mouth 1950 FIT DNA/Cologuard 1950 FIT 1950 FOBT 1950 Sigmoidoscopy 1950 Zoster Vaccines (2 of 2) 01/06/2022 11/11/2021, 01/04 RSV Patients and Patients Aged 60 years or older (1 - 1-dose 75+ series) 2024 Hepatitis B Vaccines (2 of 3 - Risk 3-dose series) 02/26/2025 01/29/2025 COVID-19 Vaccine (5 - season) 2025 05/31/2022, 08/03/2021, 10/21/2020, Additional history exists Influenza Vaccine (#1) 2025 , 05/29/2023, 05/31/2022, Additional history exists Depression Screening 04/14/2025 04/14/2024, 04/14/20 Hepatitis A Vaccines (2 of 2 - Risk 2-dose series) 07/31/2025 01/29/2025 Alcohol/Substance Use Screening 09/29/2025 09/29/2024 SDOH Screening 01/29/2026 01/29/2025 Tobacco Screening 04/14/2026 04/14/2025 Colonoscopy 03/10/2028 03/10/2023 Colorectal Cancer Screening 03/10/2028 Lipid Panel 09/30/2029 09/30/2024, 0409/2023, 01/09/2023, Additional history exists DTaP/Tdap/Td Vaccines (3 [...] Procedure Name Priority Date/Time Associated Diagnosis Comments ECG 12-LEAD Routine 04/14/2025 1:42 PM EDT Palpitation CASE PRESENTATION, DETAILED AND EXTENSIVE TREATMENT PLANNING Routine 02/10/2025 11:30 AM EDT INTRAORAL - PERIAPICAL FIRST RADIOGRAPHIC IMAGE Routine 02/10/2025 11:30 AM EDT LIMITED ORAL EVALUATION - PROBLEM FOCUSED Routine 02/10/2025 11:30 AM EDT URIC ACID Routine 02/10/2025 8:35 AM EDT Leg swelling TSH W/REFLEX TO FT4 Routine 02/10/2025 8 :35 AM EDT Acquired hypothyroidism CBC WITH AUTO DIFFERENTIAL Routine 02/10/2025 8:35 AM EDT Ecchymosis BASIC METABOLIC PANEL Routine 02/10/2025 8:35 AM EDT Leg swelling LIPID PANEL WITH REFLEX TO DIRECT LDL Routine 09/30/2024 8:22 AM EST Screening for lipid disorders HM COLONOSCOPY Routine 03/10/2023 ZZZ HISTORICAL HEPATITIS A,B,C PROFILE Routine 05/20/2021 9:15 AM EDT from Last 3 Months or Most Recently Relevant to Health Maintenance Results * ECG 12 lead (04/14/2025 1:42 PM EDT) Narrative Shanel Rubi MD - 04/14/2025 1:42 PM EDT Rate 68, sinus rhythm, borderline MN, narrow QRS, normal QTc, normal axis. No acute ischmec ST-T changes. q wave on V2. Shanel Rubi MD ECG ORDERABLES Final Result * TSH with Reflex to Free T4 (02/10/2025 8:35 AM EDT) TSH reflex Free T4 1.11 0.32 - 4.0 uIU/mL [facility] Blood 02/10/2025 8:35 AM EDT 02/10/2025 12:18 PM EDT us Shanel Rubi MD LAB BLOOD ORDERABLES Final Resul t [facility] [address] [place] [phone] * (ABNORMAL) CBC auto differential (02/10/2025 8:35 AM EDT) White Blood Count 4.3(L) 4.8 - 10.8 X10*3/uL [facility] Red Blood Count 3.44(L) 4.20 - 5.50 X10*6/uL [facility] Hemoglobin 9.8(L) 12.0 - 16.0 g/dl [facility] Hematocrit 30.8(L) 37.0 - 47.0 % [facility] Mean Corpuscular Volume 89.5 80.0 - 98.0 fL [facility] Mean Corpuscular Hemoglobin 28.5 27.0 - 33.0 pg [facility] Mean Corpuscular HGB Conc 31.8 31.0 - 35.0 g/dl [facility] Red Cell Distribution Width 14.9 11.0 - 16.0 % [facility] Platelet Count 150(L) 160 - 400 X10*3/uL [facility] Mean Platelet Volume 12.3 9.4 - 12.3 fL [facility] Neutrophils Percent Auto 57.0 45 - 73 % [facility] Imm Gran Pct Auto 0.2 0.0 - 0.4 % [facility] Lymphocytes Percent Auto 28.7 20 - 40 % [facility] Monocytes Percent Auto 12.2(H) 2 - 11 % [facility] Eosinophils Percent Auto 1.4 0 - 4 % [facility] Basophils Percent Auto 0.5 0 - 2 % [facility] NRBC Pct Auto 0.0 0.0 - 0.2 /100WBC [facility] Neutrophils Absolute Auto 2.4 2.0 - 8.3 x10*3/uL [facility] Imm Gran Abs Auto 0.01 0.00 - 0.03 X10*3/uL [facility] Lymphocytes Absolute Auto 1.2 1.2 - 4.9 X10*3/uL [facility] Monocytes Absolute Auto 0.5 0.1 - 1.2 X10*3/uL [facility] Eosinophils Absolute Auto 0.1 0.0 - 0.4 X10*3/uL [facility] Basophils Absolute Auto 0.0 0.0 - 0.2 X10*3/uL [facility] NRBC Abs Auto 0.000 0.0 - 0.012 X10*3/uL [facility] Blood Venous blood specimen / Unknown 02/10/2025 8:35 AM EDT 02/10/2025 12:18 PM EDT Shanel Rubi MD LAB BLOOD ORDERABLES Final Resul t Performing Organization Address [facility] de Phone Number [facility] [address] [place] [phone] * Uric acid (02/10/2025 8:35 AM EDT) Uric Acid 5.5 2.4 - 5.7 mg/dL [facility] Blood Venous blood specimen / Unknown 02/10/2025 8:35 AM EDT 02/10/2025 12:18 PM EDT Shanel Rubi MD LAB BLOOD ORDERABLES Final Resul t Performing Organization Address [facility] de Phone Number [facility] [address] [place] [phone] * (ABNORMAL) Basic Metabolic Panel (02/10/2025 8:35 AM EDT) Sodium 140 135 - 145 mmol/L [facility] Potassium 3.7 3.3 - 5.1 mmol/L [facility] Chloride 110(H) 96 - 108 mmol/L [facility] Carbon Dioxide 24 22 - 29 mmol/L [facility] Anion Gap 10(L) 12 - 20 [facility] Urea Nitrogen (BUN) 12 9 - 16 mg/dL [facility] Creatinine, Serum 0.69 0.5 - 1.4 mg/dL [facility] Estimated Glomerular Filt Rate >60 [facility] Comment:Chronic Kidney Disea se: Estimated GFR < 60 mL/min/[id number] Kidney Disease: Estimated GFR < 15 mL/min/1.73m2 Glucose 84 60 - 115 mg/dL [facility] Calcium 9.3 8.4 - 10.2 mg/dL [facility] Blood Venous blood specimen / Unknown 02/10/2025 8:35 AM EDT 02/10/2025 12:18 PM EDT Shanel Rubi MD LAB BLOOD ORDERABLES Final Resul t Performing Organization Address [facility] Co de Phone Number [facility] [address] [place] [phone] * Lipid Panel with Reflex to Direct LDL (09/30/2024 8:22 AM EST) Triglycerides 38 <150 mg/dL [facility] Comment:Desirable Triglyceri de: less than 150 mg/dLBorderline High Triglyceride 150-199 mg/dLHigh Triglyceride: 200-499 mg/dLVery High Triglyceride: greater than or equal to 5OO mg/dL Cholesterol 123 <200 mg/dL [facility] Comment:Desirable Cholestero l: less than 200 mg/dLBorderline High Cholesterol: 200-239 mg/dLHigh Cholesterol: greater than 239 mg/dL LDL Cholesterol Calculated 69 <100 mg/dL [facility] Comment:Desirable LDL: less than 100 mg/dLNear Optimal/Above Optimal LDL: 110- 129 mg/dLBorderline High LDL: 130-159 mg/dLHigh LDL: 160-189 mg/dLVery High LDL: greater than or equal to 190 mg/dL HDL Cholesterol 47 >40 mg/dL [facility] Comment:Desirable HDL: great er than 40 mg/dL Note: This HDL assay may give artificially low results in patients with liver disease. Blood 09/30/2024 8:22 AM EST 09/30/2024 11:35 AM EST Shanel Rubi MD LAB BLOOD ORDERABLES Final Resul t Performing Organization Address [facility]/ZIP Co de Phone Number [facility] [address] [place] [phone] * Hm Colonoscopy (03/10/2023) Colonoscopy Normal [...] HISTORICAL/NON ORDERABLE LABS Fi nal Result [facility] [address] from Last 3 Months or Most Recently Relevant to Health Maintenance [place] [address] STANDARD MEDICARE [place] STAND ADULT Care Teams 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
== END 2025-05-12 08:25 | disposition home or self-care (01) ==
LOC: HO.MAMMO 08:24
PROVIDERS: PCP Family Medicine; Visit Provider Family Medicine
DX: Z13.89 Encounter for screening for other disorder (principal)

== ENCOUNTER 2025-05-21 10:30 | Emergency (ER) | payer MEDICARE, MEDICAID, SELFPAY ==
--- NOTE | ~2025-05-21 | CT_ITS ---
EXAMINATION: CT ABDOMEN PELVIS WITHOUT IV CONTRAST HISTORY: LLQ abdominal pain. PMH of diverticulitis. COMPARISON: Comparison is made with the prior examination dated 11/03/2024. TECHNIQUE: CT scan of the abdomen and pelvis was performed without contrast using standard departmental protocol. Coronal and sagittal reformatted images were generated and reviewed. Oral contrast material was not administered at the request of the referring physician. This CT exam was performed with one or more of the following dose reduction techniques: automated exposure control, adjustment of the mA and/or kV according to patient size, use of iterative reconstruction technique. DLP: 478 mGy-cm FINDINGS: LOWER CHEST: The visualized lung bases are clear. There is no pleural effusion. CARDIOVASCULATURE: The heart is normal in size. There is no pericardial effusion. LIVER: The liver again demonstrates a nodular contour with hypertrophy of the caudate and left lobes, suggestive of cirrhosis. The liver has an otherwise unremarkable unenhanced appearance. GALLBLADDER / BILE DUCTS: The gallbladder is surgically absent. There is no intra or extrahepatic biliary ductal dilatation. SPLEEN: The spleen is normal in size and has an unremarkable unenhanced appearance. PANCREAS: The pancreas has an unremarkable unenhanced appearance. ADRENAL GLANDS: Unremarkable. KIDNEYS/RETROPERITONEUM: There are nonobstructing right renal calculi measuring up to 4 mm in size. No left renal calculi are identified. There is no hydronephrosis. LYMPH NODES: No retroperitoneal lymphadenopathy is identified in the abdomen or pelvis. VASCULATURE: The abdominal aorta is normal in caliber. MESENTERY/PERITONEUM: No free fluid. No masses. There is no free intraperitoneal gas. Again seen is mild infiltration of the fat of the root of the mesentery which is a nonspecific finding. STOMACH: There is a small hiatal hernia. The remainder of the stomach is collapsed. SMALL BOWEL: The small bowel is normal in caliber. COLON: There is diverticulosis of the descending and sigmoid colon. There is mild pericolonic inflammatory stranding about the sigmoid colon, consistent with diverticulitis. There is no adjacent extraluminal gas or loculated fluid collection. APPENDIX: Normal. URINARY BLADDER/PELVIC ORGANS: The urinary bladder is collapsed, limiting evaluation. The uterus has an unremarkable unenhanced appearance. BONES / SOFT TISSUES: No suspicious bony or soft tissue abnormalities. CT/CT abdomen pelvis wo IV con IMPRESSION: 1. Diverticulitis of the sigmoid colon as described. No extraluminal gas or loculated fluid collection. 2. Findings suggestive of hepatic cirrhosis. 3. Small hiatal hernia. Right nephrolithiasis without evidence of ureteral obstruction. Electronically signed by: Hugo Terry MD 05/21/2025 01:24 PM EDT
[2025-05-21 10:51] VITALS: BP 145/65; PULSE 82; RESP 16; TEMP 36.6; O2SAT 100; BMI 27.9
--- NOTE | 2025-05-21 10:57 | ED.GENADULT ---
HPI - General Adult General Chief complaint: Abdominal Pain Stated complaint: abd pain, history diverticulitis Time Seen by Provider: 05/21/25 13:36 Source: patient Mode of arrival: ambulatory Limitations: no limitations History of Present Illness ED Provider: Edenilson Lane HPI narrative: 74 yold female with pmh of diverticulitits and UTI presents to the ED for for left lower quadrant pain for the past couple of days. patient states no nausea or vomitting. Related Data Home Medications ?Medication ?Instructions ?Recorded ?Confirmed albuterol sulfate 90 mcg/actuation 2 puff inhalation Q4-6H PRN 05/03/20 11/17/24 aerosol inhaler Shortness Of Breath levothyroxine 88 mcg tablet 88 mcg PO DAILY 05/03/20 11/17/24 montelukast 10 mg tablet 10 mg PO DAILY 05/03/20 11/17/24 pantoprazole 40 mg tablet,delayed 40 mg PO DAILY 05/03/20 11/17/24 release cholecalciferol (vitamin D3) 25 25 mcg PO DAILY 05/14/20 11/17/24 mcg (1,000 unit) capsule cyanocobalamin (vitamin B-12) 1,000 mcg IM [id number] 05/14/20 11/17/24 1,000 mcg/mL injection solution ascorbic acid (vitamin C) 1,000 mg 1 g PO Q6H 11/11/20 11/17/24 tablet (Vitamin C) simethicone 125 mg tablet 250 mg PO BID PRN Gastrointestinal 11/11/20 11/17/24 Spasms Or Cramping meclizine 25 mg tablet 1 tab PO TID PRN Dizziness 12/12/21 11/17/24 dicyclomine 10 mg capsule 2 cap PO Q6H PRN Gastrointestinal 03/07/22 11/17/24 Spasms Or Cramping Previous Rx's ?Medication ?Instructions ?Recorded acetaminophen 300 mg-codeine 30 mg 1 tab PO Q6H PRN pain #20 tabs 06/22/23 tablet Magic Mouthwash 10 ml PO QID #240 mL 09/17/23 Diphen/Lido/Antacid 1:1:1 240 mL suspension ondansetron 4 mg disintegrating 4 mg PO Q8H PRN nausea and 11/03/24 tablet vomiting #20 tabs sucralfate 100 mg/mL oral 10 ml PO BID 7 days #140 mL 11/03/24 suspension (Carafate) acetaminophen 325 mg tablet 325 mg PO QID PRN fever or pain 05/21/25 (Tylenol) #28 tabs ciprofloxacin HCl 500 mg tablet 500 mg PO Q12H 7 days #14 tabs 05/21/25 metronidazole 500 mg tablet 500 mg PO QID 7 days #28 tabs 05/21/25 Allergies Allergy/AdvReac Type Severity Reaction Status Date / Time aspirin (ASPIRIN) Allergy Intermediate RASH Verified 05/21/25 10:55 Penicillins (PENICILLINS) Allergy Intermediate HIVES, BLACK Verified 05/21/25 10:55 SPOTS Review of Systems Review of Systems: left lower quadrant pain Yes all other systems are reviewed and are negative [facility] Past Medical History Medical History IBS (irritable bowel syndrome) Lymphoma Diverticulitis Diverticulosis Hypothyroid Tubal ligation evaluation GERD (gastroesophageal reflux disease) Aberrant thyroid gland Asthma B12 deficiency anemia Pulmonary embolism Primary osteoarthritis of knees, bilateral Breast cancer, left breast Surgical History History of endoscopy Hx of nasal septoplasty Hx of lithotripsy History of lumpectomy of left breast Hx of cholecystectomy History of esophagogastroduodenoscopy (EGD) H/O colonoscopy Hx of lymph node biopsy History of bone marrow biopsy History of removal of Port-a-Cath History of vocal cord polypectomy Hx of rotator cuff surgery Hx of carpal tunnel repair Family History Family History Mother Family hx of colon cancer Arthritis Father Hx of kidney disease Brother History of throat cancer Daughter Arthritis Sister Arthritis Social History Social History Household Members: None Housing: Condominium Are you a primary neonatal intensive care unit nurse to a significant other at home: No Do you presently have visiting nurse or other home services: Yes ([employer]) Alcohol intake: never Patient Tobacco Use Status: Former Tobacco user Smoked in Last 30 Days: No Second Hand Smoke Exposure: No Use of substances other than those prescribed or required for medical reasons: No Advance Directives: Yes Advance Directives on File: Yes Advance Directives Date on File: 05/21/25 service: No Current occupational status: disabled Sexual orientation: Straight/Heterosexual Gender identity: Female Physical Exam ED Vital Signs: Vital Signs - 24 hr 05/21/25 10:51 05/21/25 13:28 Temperature 97.8 F Pulse Rate 82 76 Respiratory Rate 16 18 Blood Pressure 145/65 H 124/77 Pulse Oximetry 100 100 Oxygen Delivery Method Room Air Room Air BMI result Body Mass Index 27.9 Const Orientation/consciousness: patient oriented x3 HENMT Head: Yes normal to inspection, Yes No palpable skull fracture present, Yes normocephalic and Yes atraumatic Eyes General: appearance normal, both eyes and all related structures Neck Neck: Yes normal visual inspection, Yes full ROM, Yes no lymphadenopathy, Yes no meningeal signs, Yes trachea midline, Yes supple, No anterior neck swelling and No tender Chest Chest palpation & inspection: normal inspection of the chest and normal palpation of entire chest wall Resp Effort & Inspection: normal respiratory effort and able to speak in complete sentences Auscultation: clear to auscultation bilaterally Cardio Jugular venous distension: no JVD Heart sounds: S1 normal heart sound present and S2 normal heart sound present GI Palpation (GI): Soft to palpation, not firm, Tenderness to palpation present (GI) in the LLQ, no guarding and not rigid General: Yes no CVA tenderness Back/Spine/Pelvis Back: no CVA tenderness and No back tenderness Skin General skin exam: no rashes or lesions noted, elasticity normal and turgor normal Neuro General: patient oriented x3, gait normal, tone normal, moves all extremities, Normal light touch and pain sensation, no meningeal signs, no focal motor deficits and CN's II-XI intact bilaterally Extrem General: Yes normal to inspection, Yes full ROM and Yes capillary refill normal Psych Appearance: grossly normal, well kempt and not disheveled Course Course Course Narrative: RME: Jared female presents to ED left lower quadrant abdominal pain for the past, days with some dysuria. Patient has started taking Cipro Flagyl due to history of diverticulitis states pain is in left lower quadrant. Patient denies any fever chills nausea vomiting. Labs ordered Medical Decision Making Medical Decision Making MDM Narrative: 74 yold female with pmh of diverticulits and UTis presents to the ED For left lower quadrant abdominal pain. Patient states mild dysuria. Patient denies any nausea vomiting, diarrhea, fever, chills or bloody stool. Patient told she had diverticulitis so she has been taking some old leftover Cipro and Flagyl. Patient denies any recent trauma. Labs are reassuring. CT scan show diverticulitits without abscess. patient to be discharged with antiobitcs. Not susepcting abdominal abscess, pylenophritits, appendcitis, sepsis, or any other life threatening etiology. Differential Diagnosis Differential Diagnoses: The differential diagnosis associated with the presentation includes (UTI, kidney stones, appendicitis, pyelonephritis) Admission/Observation Consideration of admission/observation: Escalation of care including admission/observation considered Lab Data MDM Lab Attestation statement: I reviewed the patient's lab results. 05/21/25 11:03 05/21/25 11:03 Labs: Lab Results 05/21/25 Range/Units 11:03 WBC 6.7 (4.8-10.8) X10*3/uL RBC 3.81 L (4.20-5.50) X10*6/uL Hgb 10.7 L (12.0-16.0) g/dl Hct 33.3 L (37.0-47.0) % MCV 87.4 (80.0-98.0) fL MCH 28.1 (27.0-33.0) pg MCHC 32.1 (31.0-35.0) g/dl RDW 13.9 (11.0-16.0) % Plt Count 163 (160-400) X10*3/uL MPV 11.3 (9.4-12.3) fL Immature Gran % (Auto) 0.3 (0.0-0.4) % Neut % (Auto) 66.0 (45-73) % Lymph % (Auto) 20.2 (20-40) % Victoria % (Auto) 12.6 H (2-11) % Eos % (Auto) 0.6 (0-4) % Baso % (Auto) 0.3 (0-2) % Lymph # (Auto) 1.4 (1.2-4.9) X10*3/uL Victoria # (Auto) 0.8 (0.1-1.2) X10*3/uL Eos # (Auto) 0.0 (0.0-0.4) X10*3/uL Baso # (Auto) 0.0 (0.0-0.2) X10*3/uL Abs Immat Gran (auto) 0.02 (0.00-0.03) X10*3/uL Absolute Neuts (auto) 4.4 (2.0-8.3) x10*3/uL Absolute Nucleated RBC 0.000 (0.0-0.012) X10*3/uL Nucleated RBC % (auto) 0.0 (0.0-0.2) /100WBC Sodium 138 (135-145) mmol/L Potassium 3.5 (3.3-5.1) mmol/L Chloride 106 (96-108) mmol/L Carbon Dioxide 22 (22-29) mmol/L Anion Gap 14 (12-20) BUN 12 (9-16) mg/dL Creatinine 0.66 (0.5-1.4) mg/dL Estim Creat Clear Calc 69.8 Estimated GFR > 60 Random Glucose 94 (60-115) mg/dL Calcium 9.9 (8.4-10.2) mg/dL Total Bilirubin 0.6 (0.0-1.0) mg/dL AST 23 (5-31) U/L ALT 16 (0-31) U/L Alkaline Phosphatase 107 (39-117) U/L Total Protein 8.0 (6.5-8.0) g/dL Albumin 4.5 (3.5-5.0) g/dL Lipase 38 (8-78) U/L Urine Color Yellow Urine Appearance Clear Urine pH 6.5 (5.0-9.0) Ur Specific Maryneal <= 1.005 (1.005-1.025) Urine Protein Negative (Neg-Trace) mg/dL Urine Glucose (UA) Negative (Negative) mg/dL Urine Ketones Negative (Negative) mg/dL Urine Blood Negative (Negative) Urine Nitrite Negative (Negative) Ur Leukocyte Esterase Trace H (Negative) Urine RBC 0-2 (0-2) /HPF Urine WBC 0-5 (0-5) /HPF Ur Squamous Epith Cells 0-2 (0-2) /HPF Urine Bacteria None Seen (None Seen) Hyaline Casts 0-2 (0-2) /LPF Independent Interpretation I performed an independent interpretation of an: CT Scan Radiology Impression Discussion of test interpretation with radiology: I have reviewed the radiologist's reading. Independent Historian Clinical information obtained from an independent historian. History obtained from or confirmed by: Other (Patient) Prescription Management I considered prescription management with: Antibiotic Discharge Plan Discharge Clinical Impression: Diverticulitis Patient Disposition: Home, Self-Care Instructions: Diverticulitis (ED) Additional Instructions: You will need follow up with the primary care provider. Return to the ED immediately worsening abdominal pain, nausea, vomiting, flank pain, fever, chills, blood in stool, or any other concerning symptoms. Patient: Anisha Esposito MR#: [id number] : 1950 Acct:[id number] Age/Sex: 74 / F ADM Date: 05/21/25 Loc: HO.ED Attending Dr: Ordering Physician: Edenilson Lane Date of Service: 05/21/25 Procedure(s): CT abdomen pelvis wo IV con Accession Number(s): [id number] cc: Edenilson Lane; Sandy Rubi MD~ Report Number: [id number]: Total DLP = 478.00 mGy-cm Reason for Exam: LLQ abdominal pain. pmh of divertculitis. EXAMINATION: CT ABDOMEN PELVIS WITHOUT IV CONTRAST HISTORY: LLQ abdominal pain. PMH of diverticulitis. COMPARISON: Comparison is made with the prior examination dated 11/03/2024. TECHNIQUE: CT scan of the abdomen and pelvis was performed without contrast using standard departmental protocol. Coronal and sagittal reformatted images were generated and reviewed. Oral contrast material was not administered at the request of the referring physician. This CT exam was performed with one or more of the following dose reduction techniques: automated exposure control, adjustment of the mA and/or kV according to patient size, use of iterative reconstruction technique. DLP: 478 mGy-cm FINDINGS: LOWER CHEST: The visualized lung bases are clear. There is no pleural effusion. CARDIOVASCULATURE: The heart is normal in size. There is no pericardial effusion. LIVER: The liver again demonstrates a nodular contour with hypertrophy of the caudate and left lobes, suggestive of cirrhosis. The liver has an otherwise unremarkable unenhanced appearance. GALLBLADDER / BILE DUCTS: The gallbladder is surgically absent. There is no intra or extrahepatic biliary ductal dilatation. SPLEEN: The spleen is normal in size and has an unremarkable unenhanced appearance. PANCREAS: The pancreas has an unremarkable unenhanced appearance. ADRENAL GLANDS: Unremarkable. KIDNEYS/RETROPERITONEUM: There are nonobstructing right renal calculi measuring up to 4 mm in size. No left renal calculi are identified. There is no hydronephrosis. LYMPH NODES: No retroperitoneal lymphadenopathy is identified in the abdomen or pelvis. VASCULATURE: The abdominal aorta is normal in caliber. MESENTERY/PERITONEUM: No free fluid. No masses. There is no free intraperitoneal gas. Again seen is mild infiltration of the fat of the root of the mesentery which is a nonspecific finding. STOMACH: There is a small hiatal hernia. The remainder of the stomach is collapsed. SMALL BOWEL: The small bowel is normal in caliber. COLON: There is diverticulosis of the descending and sigmoid colon. There is mild pericolonic inflammatory stranding about the sigmoid colon, consistent with diverticulitis. There is no adjacent extraluminal gas or loculated fluid collection. APPENDIX: Normal. URINARY BLADDER/PELVIC ORGANS: The urinary bladder is collapsed, limiting evaluation. The uterus has an unremarkable unenhanced appearance. BONES / SOFT TISSUES: No suspicious bony or soft tissue abnormalities. CT/CT abdomen pelvis wo IV con IMPRESSION: 1. Diverticulitis of the sigmoid colon as described. No extraluminal gas or loculated fluid collection. 2. Findings suggestive of hepatic cirrhosis. 3. Small hiatal hernia. Right nephrolithiasis without evidence of ureteral obstruction. Electronically signed by: Hugo Terry MD 05/21/2025 01:24 PM EDT Prescriptions: New metronidazole 500 mg tablet 500 mg PO QID 7 Days Qty: 28 0RF ciprofloxacin HCl 500 mg tablet 500 mg PO Q12H 7 Days Qty: 14 0RF acetaminophen [Tylenol] 325 mg tablet 325 mg PO QID PRN (Reason: fever or pain) Qty: 28 0RF No Action ascorbic acid (vitamin C) [Vitamin C] 1,000 mg Tablet 1 g PO Q6H simethicone 125 mg Tablet 250 mg PO BID PRN (Reason: Gastrointestinal Spasms Or Cramping) meclizine 25 mg tablet 1 tab PO TID PRN (Reason: Dizziness) Magic Mouthwash Diphen/Lido/Antacid 1:1:1 240 mL Suspension 10 ml PO QID Qty: 240 6RF Rx Instructions: Lidocaine Viscous 2 % 80mL; diphenhydramine 12.5 mg/5 mL 80mL; aluminum-mag hydrox-simeth [id number] 80mL dicyclomine 10 mg capsule 2 cap PO Q6H PRN (Reason: Gastrointestinal Spasms Or Cramping) acetaminophen-codeine 300-30 mg tablet 1 tab PO Q6H PRN (Reason: pain) Qty: 20 0RF sucralfate [Carafate] 100 mg/mL suspension 10 ml PO BID 7 Days Qty: 140 0RF ondansetron 4 mg tablet,disintegrating 4 mg PO Q8H PRN (Reason: nausea and vomiting) Qty: 20 0RF montelukast 10 mg tablet 10 mg PO DAILY pantoprazole 40 mg tablet,delayed release (DR/EC) 40 mg PO DAILY levothyroxine 88 mcg tablet 88 mcg PO DAILY albuterol sulfate 90 mcg/actuation HFA aerosol inhaler 2 puff inhalation Q4-6H PRN (Reason: Shortness Of Breath) cholecalciferol (vitamin D3) 25 mcg (1,000 unit) capsule 25 mcg PO DAILY cyanocobalamin (vitamin B-12) 1,000 mcg/mL solution 1,000 mcg IM [id number] Referrals: Sandy Rubi MD [Primary Care Provider, Internal Medicine] - 2 days Referral Note: Diverticulitits Clinical Impression: Diverticulitis Stand Alone Forms: Work/School Release Interventions: ED Discharge Assessment Last Done: 05/21/25 15:17 Discharge Date/Time: 05/21/25 15:18 Print Language: Palestinian
[2025-05-21 11:09] LABS: Hematocrit 33.3 % (37.0-47.0); Hemoglobin 10.7 g/dl (12.0-16.0); Imm Gran Abs Auto 0.02 X10*3/uL (0.00-0.03); Imm Gran Pct Auto 0.3 % (0.0-0.4); Lymphocytes Absolute Auto 1.4 X10*3/uL (1.2-4.9); MANUAL DIFF FLAG NO; Mean Corpuscular HGB Conc 32.1 g/dl (31.0-35.0); Mean Corpuscular Hemoglobin 28.1 pg (27.0-33.0); Mean Corpuscular Volume 87.4 fL (80.0-98.0); NRBC Abs Auto 0.000 X10*3/uL (0.0-0.012); NRBC Pct Auto 0.0 /100WBC (0.0-0.2); Platelet Count 163 X10*3/uL (160-400); Red Blood Count 3.81 X10*6/uL (4.20-5.50); White Blood Count 6.7 X10*3/uL (4.8-10.8)
[2025-05-21 11:10] LABS: Appearance Urine Clear; Glucose Urine UA Negative (Negative); PH 6.5 (5.0-9.0); Specific Gravity - Urine <= 1.005 (1.005-1.025); UMIC TRIGGER UACC YES
[2025-05-21 11:38] LABS: Alanine Aminotransferase 16 U/L (0-31); Albumin Level 4.5 g/dL (3.5-5.0); Anion Gap 14 (12-20); Aspartate Amino Transferase 23 U/L (5-31); Blood Urea Nitrogen 12 mg/dL (9-16); Calcium 9.9 mg/dL (8.4-10.2); Carbon Dioxide 22 mmol/L (22-29); Chloride 106 mmol/L (96-108); Creatinine Clr Calc Pharmacy 69.8; Estimated Glomerular Filt Rate > 60; Lipase 38 U/L (8-78); Potassium 3.5 mmol/L (3.3-5.1); Sodium 138 mmol/L (135-145); Total Protein 8.0 g/dL (6.5-8.0)
[2025-05-21 11:49] LABS: Alkaline Phosphatase 107 U/L (39-117)
[2025-05-21 13:28] VITALS: BP 124/77; PULSE 76; RESP 18; O2SAT 100
[2025-05-21 15:17] VITALS: BP 122/72; PULSE 72; RESP 18; TEMP 36.6; O2SAT 100
--- OUTSIDE RECORDS SUMMARY | 2025-05-21 17:28 | XMS_ITS | Clinical Summary ---
Author Organization [employer] Address [address] [place] [address] [address] [place] [address] Care Team Providers Care Millwright Apprentice Name Role Phone Shanel Rubi MD Primary Care Provider [phone] Allergies Active Allergy Reactions Criticality Noted Date [...] knee - [place]. [place] [facility] [place] s/p right knee partial medial and [...] knee - Following with Dr. Mitchell at [facility] - s/p right knee partial medial and [...] posterior horn of the medial meniscus. 2. Gyyf-zj-tmvdzklg patellofemoral arthrosis. 3. Mild medial compartment arthrosis. [...] posterior horn of the medial meniscus. 2. Jyju-tn-[id number] patellofemoral arthrosis. 3. Mild medial compartment arthrosis. [...] 02/27/2023 Overview (02/27/2023): - already evaluated by outdoor adventure instructor, last seen in 2019 - no rheumatological abnormality, pt has hypothyroidism - consider repeating lab Assessment & Plan (05/15/2023 5:17 PM EDT): - evaluated by outdoor adventure instructor and was given a reassurance that she does not have rheumatological problem Right foot pain 12/23/2022 Assessment & Plan (01/31/2025 8:39 AM EDT): -Mar 2022 X-ray showed OA -Seen by healthcare or medical and Dx plantar fasciitis -Continue ice, stretching exercise, and APAP prn -Continue wearing comfortable shoes. Assessment & Plan (04/15/2024 8:58 AM EDT): -Mar 2022 X-ray showed OA -Seen by healthcare or medical and Dx plantar fasciitis -Continue ice, stretching exercise, and APAP prn -Continue wearing comfortable shoes. Assessment & Plan (12/23/2022 6:32 PM EDT): -Mar 2022 X-ray showed OA -Seen by healthcare or medical and Dx plantar fasciitis -Continue ice, stretching [...] -Mar 2022 X-ray showed OA -Seen by healthcare or medical and Dx plantar fasciitis -Continue ice, stretching exercise, and APAP prn -Continue wearing comfortable shoes. Assessment & Plan (05/15/2023 5:14 PM EDT): -Mar 2022 X-ray showed OA -Seen by healthcare or medical and Dx plantar fasciitis -Continue ice, stretching exercise, and APAP prn -Continue wearing comfortable shoes. Assessment & Plan (12/18/2022 6:12 PM EDT): -Mar 2022 X-ray showed OA -Seen by healthcare or medical and Dx plantar fasciitis -Continue ice, stretching [...] COLON WRITTEN ON 05/15/2023 5:23 PM BY SHAENL RUBI MD - most recent episode on [...] - most recent EKG on 04/14/2025, borderline MT. Last E[place] in 2021 in [facility] shows MT 202 ms - review medications - will consider Holter monitor her palpitation becomes more frequent Assessment & Plan (05/15/2023 5:06 PM EDT): - most recent EKG in 2021 in [facility] shows MT 202 ms - review medications [...] ESWL February 2023 Right ESWL -Followed by [facility] Urology provider, last seen on 06/12/24 -Most [...] ESWL February 2023 Right ESWL -Followed by [facility] Urology provider, last seen on 06/12/24 -Most [...] ESWL February 2023 Right ESWL -Followed by [facility] Urology provider, last seen on 06/12/24 -Most [...] ESWL February 2023 Right ESWL -Followed by [facility] [place]rology provider, last seen on 02/23/23 -Most [...] ESWL February 2023 Right ESWL -Followed by [facility] Urology provider, last seen on 02/23/23 -Most [...] ECSWL May 2019 Right ESWL -Followed by [facility] Urology provider, last seen on 10/17/22 -Most [...] per protocol and follow-up appt with Dr. Polnaco. Osteoarthritis 03/25/2012 Assessment & Plan (09/29/2024 10:57 AM EST): - continue judicious use of APAP Assessment & Plan (08/11/2023 6:07 AM EST): - continue judicious use of APAP Assessment & Plan (09/29/2024 5:18 AM EST): >>ASSESSMENT AND PLAN FOR OSTEOARTHRITIS WRITTEN ON 05/15/2023 5:14 PM BY SHNAEL RUBI MD - continue judicious use of [...] - continue vitamin B12 IM monthly at [facility] [place] Onc - continue folic acid supplement Assessment & Plan (01/31/2025 8:37 AM EDT): - following with Dr. Polanco - continue vitamin B12 IM monthly at [facility] [place] Onc - continue folic acid supplement Assessment & Plan (09/29/2024 10:57 AM EST): - following with Dr. Polanco - continue vitamin B12 IM monthly at [facility] [place] Onc - continue folic acid supplement Assessment & Plan (11/07/2023 5:26 AM EDT): - following with Dr. Polanco - continue vitamin B12 IM monthly at [facility] [place]e / Onc - continue folic acid supplement Assessment & Plan (11/07/2023 5:25 AM EDT): >>ASSESSMENT AND PLAN FOR PERNICIOUS ANEMIA WRITTEN ON 12/18/2022 6:36 PM BY SHANEL RUBI MD - following with Dr. Polanco - continue vitamin B12 IM monthly at [facility] [place]e / Onc - continue folic acid supplement Assessment & Plan (11/07/2023 5:25 AM EDT): >>ASSESSMENT AND PLAN FOR PERNICIOUS ANEMIA WRITTEN ON 05/15/2023 5:17 PM BY SHANEL RUBI MD - following with Dr. Polanco - continue vitamin B12 IM monthly at [facility] [place]e [place] Onc - continue folic acid supplement Assessment & Plan (11/07/2023 5:25 AM EDT): >>ASSESSMENT AND PLAN FOR PERNICIOUS ANEMIA WRITTEN ON 08/11/2023 6:09 AM BY SHANEL RUBI MD - following with Dr. Polanco - continue vitamin B12 IM monthly at [facility] [place]e / Onc - continue folic acid [...] Encounters Date Type Department Care Team Description 05/21/2025 Orders Only GENERIC EXTERNAL DATA DEPARTMENT Provider, Generic External Data 05/12/2025 Orders Only [address] [address] Shanel Rubi MD Osteopenia of neck of femur, unspecified laterality (Primary Dx); Vitamin D deficiency; Other specified disorders of bone density and structure, other site 05/12/2025 Orders Only [address] [address] Shanel Rubi MD Acquired hypothyroidism (Primary Dx); Osteopenia of neck of femur, unspecified laterality; Hyperparathyroidism, unspecified (CMS/HCC) 04/14/2025 1:30 PM EDT Office Visit [address] [address] Shanel Rubi MD Acquired hypothyroidism (Primary Dx); [...] intra-abdominal lymph nodes, unspecified B-cell lymphoma type ([facility]/HCC) 04/14/2025 Travel 04/13/2025 Travel 04/13/[address] [address] Shanel Rubi MD chart prep 02/19/[address] [address] Monse Silva [place] april recall from Last 3 Months Immunizations Immunization Administration [...] 1950 FIT 1950 FOBT 1950 Sigmoidoscopy 1950 COVID-19 Vaccine (#1) 1954 Zoster Vaccines (2 of 2) 01/06/2022 11/11/2021, 01/04 RSV Patients and Patients Aged 60 years or older (1 - 1-dose 75+ series) 2024 Hepatitis B Vaccines (2 of 3 - Risk 3-dose series) 02/26/2025 01/29/2025 Influenza Vaccine (#1) 2025 , 05/29/2023, 05/31/2022, Additional history exists Depression Screening 04/14/2025 04/14/2024, 04/14/20 24 Hepatitis A Vaccines (2 of 2 - Risk 2-dose series) 07/31/2025 01/29/2025 Alcohol/Substance Use Screening 09/29/2025 09/29/2024 SDOH Screening 01/29/2026 01/29/2025 Tobacco Screening 04/14/2026 04/14/2025 Colonoscopy 03/10/2028 03/10/2023 Colorectal Cancer Screening 03/10/2028 Lipid Panel 09/30/2029 09/30/2024, 04/09/2023, 01/09/2023, Additional history exists DTaP/Tdap/Td Vaccines (3 [...] Procedure Name Priority Date/Time Associated Diagnosis Comments CT ABDOMEN PELVIS WO CONTRAST Routine 05/21/2025 12:46 PM EDT LIPASE Routine 05/21/2025 11:03 AM EDT COMPREHENSIVE METABOLIC PANEL Routine 05/21/2025 11:03 AM EDT URINALYSIS, COMPLETE, WITH REFLEX TO CULTURE Routine 05/21/2025 11:03 AM EDT CBC WITH AUTO DIFFERENTIAL Routine 05/21/2025 11:03 AM EDT ECG 12-LEAD Routine 04/14/2025 1:42 PM EDT Palpitation LIPID PANEL WITH REFLEX TO DIRECT LDL Routine 09/30/2024 8:22 AM EST Screening for lipid disorders HM COLONOSCOPY Routine 03/10/2023 ZZZ HISTORICAL HEPATITIS A,B,C PROFILE Routine 05/20/2021 9:15 AM EDT from Last 3 Months or Most Recently Relevant to Health Maintenance Results * CT Abdomen Pelvis w/o Contrast (05/21/2025 12:46 PM EDT) Anatomical Region Laterality Modality Body, Pelvis, Abdomen Computed T omography 05/21/2025 12:4 6 PM EDT Narrative 05/21/2025 1:27 PM EDT [place] [address] CT Scan Report Signed Patient: Anisha Esposito MR#: [id number] : 1950 Acct:[id number] Age/Sex: 74 / F ADM Date: 05/21/25 Loc: HO.ED Attending Dr: Ordering Physician: Edenilson Lane Date of Service: 05/21/25 Procedure(s): CT abdomen pelvis wo IV con Accession Number(s): [id number] cc: Edenilson Lane; Shanel Rubi MD Report Number: [id number]: Total DLP = 478.00 mGy-cm Reason for Exam: LLQ abdominal pain. pmh of divertculitis. EXAMINATION: CT ABDOMEN PELVIS WITHOUT IV CONTRAST HISTORY: LLQ abdominal pain. PMH of diverticulitis. COMPARISON: Comparison is made with the prior examination dated 11/03/2024. TECHNIQUE: CT scan of the abdomen and pelvis was performed without contrast using standard departmental protocol. Coronal and sagittal reformatted images were generated and reviewed. Oral contrast material was not administered at the request of the referring physician. This CT exam was performed with one or more of the following dose reduction techniques: automated exposure control, adjustment of the mA and/or kV according to patient size, use of iterative reconstruction technique. DLP: 478 mGy-cm FINDINGS: LOWER CHEST: The visualized lung bases are clear. There is no pleural effusion. CARDIOVASCULATURE: The heart is normal in size. There is no pericardial effusion. LIVER: The liver again demonstrates a nodular contour with hypertrophy of the caudate and left lobes, suggestive of cirrhosis. The liver has an otherwise unremarkable unenhanced appearance. GALLBLADDER / BILE DUCTS: The gallbladder is surgically absent. There is no intra or extrahepatic biliary ductal dilatation. SPLEEN: The spleen is normal in size and has an unremarkable unenhanced appearance. PANCREAS: The pancreas has an unremarkable unenhanced appearance. ADRENAL GLANDS: Unremarkable. KIDNEYS/RETROPERITONEUM: There are nonobstructing right renal calculi measuring up to 4 mm in size. No left renal calculi are identified. There is no hydronephrosis. LYMPH NODES: No retroperitoneal lymphadenopathy is identified in the abdomen or pelvis. VASCULATURE: The abdominal aorta is normal in caliber. MESENTERY/PERITONEUM: No free fluid. No masses. There is no free intraperitoneal gas. Again seen is mild infiltration of the fat of the root of the mesentery which is a nonspecific finding. STOMACH: There is a small hiatal hernia. The remainder of the stomach is collapsed. SMALL BOWEL: The small bowel is normal in caliber. COLON: There is diverticulosis of the descending and sigmoid colon. There is mild pericolonic inflammatory stranding about the sigmoid colon, consistent with diverticulitis. There is no adjacent extraluminal gas or loculated fluid collection. APPENDIX: Normal. URINARY BLADDER/PELVIC ORGANS: The urinary bladder is collapsed, limiting evaluation. The uterus has an unremarkable unenhanced appearance. BONES / SOFT TISSUES: No suspicious bony or soft tissue abnormalities. CT/CT abdomen pelvis wo IV con IMPRESSION: 1. Diverticulitis of the sigmoid colon as described. No extraluminal gas or loculated fluid collection. 2. Findings suggestive of hepatic cirrhosis. 3. Small hiatal hernia. Right nephrolithiasis without evidence of ureteral obstruction. Electronically signed by: Hugo Terry MD 05/21/2025 01:24 PM EDT Dictated By: Hugo Terry MD Signed By: <Electronically signed by Hugo Terry MD in OV> 05/21/25 1324 DD/ 1246 TD/TT: 05/21/25 1317 Minibus Driver: Procedure Note Donotuseinterpreter, Image - 05/21/[address] [address] [address] Scan Report Signed Patient: Anisha Esposito EMR#: [id number] : 1950Acct:[id number] Age/Sex: 74 / FADM Date: 05/21/25 Loc: HO.ED Attending Dr: Ordering Physician: Edenilson Lane Date of Service: 05/21/25 Procedure(s): CT abdomen pelvis wo IV con Accession Number(s): [id number] cc: Edenilson Lane; Shanel Rubi MD Report Number: [id number]: Total DLP = 478.00 mGy-cm Reason for Exam: LLQ abdominal pain. pmh of divertculitis. EXAMINATION: CT ABDOMEN PELVIS WITHOUT IV CONTRAST HISTORY: LLQ abdominal pain. PMH of diverticulitis. COMPARISON: Comparison is made with the prior examination dated 11/03/2024. TECHNIQUE: CT scan of the abdomen and pelvis was performed without contrast using standard departmental protocol. Coronal and sagittal reformatted images were generated and reviewed. Oral contrast material was not administered at the request of the referring physician. This CT exam was performed with one or more of the following dose reduction techniques: automated exposure control, adjustment of the mA and/or kV according to patient size, use of iterative reconstruction technique. DLP: 478 mGy-cm FINDINGS: LOWER CHEST: The visualized lung bases are clear. There is no pleural effusion. CARDIOVASCULATURE: The heart is normal in size. There is no pericardial effusion. LIVER: The liver again demonstrates a nodular contour with hypertrophy of the caudate and left lobes, suggestive of cirrhosis. The liver has an otherwise unremarkable unenhanced appearance. GALLBLADDER / BILE DUCTS: The gallbladder is surgically absent. There is no intra or extrahepatic biliary ductal dilatation. SPLEEN: The spleen is normal in size and has an unremarkable unenhanced appearance. PANCREAS: The pancreas has an unremarkable unenhanced appearance. ADRENAL GLANDS: Unremarkable. KIDNEYS/RETROPERITONEUM: There are nonobstructing right renal calculi measuring up to 4 mm in size. No left renal calculi are identified. There is no hydronephrosis. LYMPH NODES: No retroperitoneal lymphadenopathy is identified in the abdomen or pelvis. VASCULATURE: The abdominal aorta is normal in caliber. MESENTERY/PERITONEUM: No free fluid. No masses. There is no free intraperitoneal gas. Again seen is mild infiltration of the fat of the root of the mesentery which is a nonspecific finding. STOMACH: There is a small hiatal hernia. The remainder of the stomach is collapsed. SMALL BOWEL: The small bowel is normal in caliber. COLON: There is diverticulosis of the descending and sigmoid colon. There is mild pericolonic inflammatory stranding about the sigmoid colon, consistent with diverticulitis. There is no adjacent extraluminal gas or loculated fluid collection. APPENDIX: Normal. URINARY BLADDER/PELVIC ORGANS: The urinary bladder is collapsed, limiting evaluation. The uterus has an unremarkable unenhanced appearance. BONES / SOFT TISSUES: No suspicious bony or soft tissue abnormalities. CT/CT abdomen pelvis wo IV con IMPRESSION: 1. Diverticulitis of the sigmoid colon as described. No extraluminal gas or loculated fluid collection. 2. Findings suggestive of hepatic cirrhosis. 3. Small hiatal hernia. Right nephrolithiasis without evidence of ureteral obstruction. Electronically signed by: Hugo Terry MD 05/21/2025 01:24 PM EDT Dictated By: Hugo Terry MD Signed By: <Electronically signed by Hugo Terry MD in [place]> 05/21/25 1324 DD/ 1246 TD/TT: 05/21/25 1317 Minibus Driver: us [facility] External Provider IMG CT PROCEDURES Edited Result - Final * (ABNORMAL) Urinalysis, Complete, with Reflex to Culture (05/21/2025 11:03 AM EDT) Color Urine Yellow [facility] Appearance Urine Clear [facility] PH 6.5 5.0 - 9.0 [facility] Glucose Urine UA Negative Negative mg/dL [facility] Urine Blood Negative Negative [facility] Specific [place] - Urine <=1.005 1.005 - 1.025 [facility] Urine Protein Negative Neg-Trace mg/dL [facility] Urine Ketones Negative Negative mg/dL [facility] Nitrite Urine Negative Negative [facility] Leukocyte Esterase Urine Trace(A) Negative [facility] RBC Urine 0-2 0 - 2 /HPF [facility] Urine WBC 0-5 0 - 5 /HPF [facility] Urine Squamous Epithelial Cell 0-2 0 - 2 /HPF [facility] Urine Bacteria None Seen None Seen [facility] Hyaline Casts, Urine 0-2 0 - 2 /LPF [facility] 05/21/2025 11:0 3 AM EDT 05/21/2025 11:06 AM EDT Narrative [facility] - 05/21/2025 11:16 AM EDT [id number], Clean Catch us Generic External Data Provider LAB URINE ORDERAB LES Final Result [facility] [address] [place] [address] [phone] * (ABNORMAL) CBC auto differential (05/21/2025 11:03 AM EDT) White Blood Count 6.7 4.8 - 10.8 X10*3/uL [facility] Red Blood Count 3.81(L) 4.20 - 5.50 X10*6/uL [facility] Hemoglobin 10.7(L) 12.0 - 16.0 g/dl [facility] Hematocrit 33.3(L) 37.0 - 47.0 % [facility] Mean Corpuscular Volume 87.4 80.0 - 98.0 fL [facility] Mean Corpuscular Hemoglobin 28.1 27.0 - 33.0 pg [facility] Mean Corpuscular HGB Conc 32.1 31.0 - 35.0 g/dl [facility] Red Cell Distribution Width 13.9 11.0 - 16.0 % [facility] Platelet Count 163 160 - 400 X10*3/uL [facility] Mean Platelet Volume 11.3 9.4 - 12.3 fL [facility] Neutrophils Percent Auto 66.0 45 - 73 % [facility] Imm Gran Pct Auto 0.3 0.0 - 0.4 % [facility] Lymphocytes Percent Auto 20.2 20 - 40 % [facility] Monocytes Percent Auto 12.6(H) 2 - 11 % [facility] Eosinophils Percent Auto 0.6 0 - 4 % [facility] Basophils Percent Auto 0.3 0 - 2 % [facility] NRBC Pct Auto 0.0 0.0 - 0.2 /100WBC [facility] Neutrophils Absolute Auto 4.4 2.0 - 8.3 x10*3/uL [facility] Imm Gran Abs Auto 0.02 0.00 - 0.03 X10*3/uL [facility] Lymphocytes Absolute Auto 1.4 1.2 - 4.9 X10*3/uL [facility] Monocytes Absolute Auto 0.8 0.1 - 1.2 X10*3/uL [facility] Eosinophils Absolute Auto 0.0 0.0 - 0.4 X10*3/uL [facility] Basophils Absolute Auto 0.0 0.0 - 0.2 X10*3/uL [facility] NRBC Abs Auto 0.000 0.0 - 0.012 X10*3/uL [facility] 05/21/2025 11:0 3 AM EDT 05/21/2025 11:06 AM EDT us Generic External Data Provider LAB BLOOD ORDERAB LES Final Result [facility] [address] [place] [address] [phone] * Lipase (05/21/2025 11:03 AM EDT) Lipase 38 8 - 78 U/L [facility] 05/21/2025 11:0 3 AM EDT 05/21/2025 11:06 AM EDT us Generic External Data Provider LAB BLOOD ORDERAB LES Final Result [facility] [address] [place] [address] [phone] * Comprehensive Metabolic Panel (05/21/2025 11:03 AM EDT) Sodium 138 135 - 145 mmol/L [facility] Potassium 3.5 3.3 - 5.1 mmol/L [facility] Chloride 106 96 - 108 mmol/L [facility] Carbon Dioxide 22 22 - 29 mmol/L [facility] Anion Gap 14 12 - 20 [facility] Urea Nitrogen (BUN) 12 9 - 16 mg/dL [facility] Creatinine, Serum 0.66 0.5 - 1.4 mg/dL [facility] Creatinine Clr Calc Pharmacy 69.8 [facility] Comment:Provided height and weight: 160.02 cm,71.5 kg.eGFR (calculated from the MDRD study equation) and eCrCl(calculated from the Cockcroft-Gault equation) are based ondifferent parameters and may not yield comparable results.If eCrCl result is absurd, please check patient'sheight/weight. Estimated Glomerular Filt Rate >60 [facility] Comment:Chronic Kidney Disea se: Estimated GFR < 60 mL/min/1.47u6Ypirfl Kidney Disease: Estimated GFR < 15 mL/min/1.73m2 Glucose 94 60 - 115 mg/dL [facility] Calcium 9.9 8.4 - 10.2 mg/dL [facility] Bilirubin, Total 0.6 0.0 - 1.0 mg/dL [facility] Aspartate Amino Transferase 23 5 - 31 U/L [facility] Alanine Aminotransferase 16 0 - 31 U/L [facility] Total Protein 8.0 6.5 - 8.0 g/dL [facility] Albumin Level 4.5 3.5 - 5.0 g/dL [facility] Alkaline Phosphatase 107 39 - 117 U/L [facility] 05/21/2025 11:0 3 AM EDT 05/21/2025 11:06 AM EDT us Generic External Data Provider LAB BLOOD ORDERAB LES Final Result [facility] [address] [place] [address] [phone] * ECG 12 lead (04/14/2025 1:42 PM EDT) Narrative Shanel Rubi MD - 04/14/2025 1:42 PM EDT Rate 68, sinus rhythm, borderline MT, narrow QRS, normal QTc, normal axis. No acute ischmec ST-T changes. q wave on V2. us Shanel Rubi MD ECG ORDERABLES Final Result * Lipid Panel with Reflex to Direct LDL (09/30/2024 8:22 AM EST) Triglycerides 38 <150 mg/dL [facility] Comment:Desirable Triglyceri de: less than 150 mg/dLBorderline High Triglyceride 150-199 mg/dLHigh Triglyceride: 200-499 mg/dLVery High Triglyceride: greater than or equal to 5OO mg/dL Cholesterol 123 <200 mg/dL [facility] Comment:Desirable Cholestero l: less than 200 mg/dLBorderline High Cholesterol: 200-239 mg/dLHigh Cholesterol: greater than 239 mg/dL LDL Cholesterol Calculated 69 <100 mg/dL [facility] Comment:Desirable LDL: less than 100 mg/dLNear Optimal/Above Optimal LDL: 110- 129 mg/dLBorderline High LDL: 130-159 mg/dLHigh LDL: 160-189 mg/dLVery High LDL: greater than or equal to 190 mg/dL HDL Cholesterol 47 >40 mg/dL [facility] Comment:Desirable HDL: great er than 40 mg/dL Note: This HDL assay may give artificially low results in patients with liver disease. Blood 09/30/2024 8:22 AM EST 09/30/2024 11:35 AM EST Shanel Rubi MD LAB BLOOD ORDERABLES Final Resul t [facility] [address] [place] [address] [phone] * Hm Colonoscopy (03/10/2023) Colonoscopy Normal [...] LABS Fi nal Result Performing Organization Address City/[facility]/ZIP Co de Phone Number [facility] [address] from Last 3 Months or Most Recently Relevant to Health Maintenance [place] [address] [place] [address] STANDARD MEDICARE D[place] ST[place] ADULT Care Teams [employer]ice Relationship Specialty Start Date End Date Shanel Rubi MD [address] [place] [id number] PCP - General Family Medicine 08/06/18
--- OUTSIDE RECORDS SUMMARY | 2025-05-21 17:28 | XMS_ITS | Encounter Summary ---
Author Organization [employer] Address 75 [facility] 7t [place] [address] Care Team Providers Care Vegetable Grader Name Role Phone Sandy Rubi MD Primary Care Provider [phone] Encounter Details Date Type Department Care Team ([facility] Contact Info) Description 05/21/2025 Orders Only GENERIC EXTERNAL DATA DEPARTMENT Provider, Generic External Data Social History Tobacco Use Types Packs/Day Years [...] on file documented as of this encounter Procedures Procedure Name Priority Date/Time Associated Diagnosis Comments CT ABDOMEN PELVIS WO CONTRAST Routine 05/21/2025 12:46 PM EDT URINALYSIS, COMPLETE, WITH REFLEX TO CULTURE Routine 05/21/2025 11:03 AM EDT CBC WITH AUTO DIFFERENTIAL Routine 05/21/2025 11:03 AM EDT LIPASE Routine 05/21/2025 11:03 AM EDT COMPREHENSIVE METABOLIC PANEL Routine 05/21/2025 11:03 AM EDT documented in this encounter Results * CT Abdomen Pelvis w/o Contrast (05/21/2025 12:46 PM EDT) Anatomical Region Laterality Modality Body, Pelvis, Abdomen Computed T omography 05/21/2025 12:4 6 PM EDT Narrative 05/21/2025 1:27 PM EDT [place] [address] [address] Scan Report Signed Patient: Anisha Esposito MR#: [id number] : 1950 Acct:[id number] Age/Sex: 74 / F ADM Date: 05/21/25 Loc: HO.ED Attending Dr: Ordering Physician: Edenilson Lane Date of Service: 05/21/25 Procedure(s): CT abdomen pelvis wo IV con Accession Number(s): [id number] cc: Edenilson Lane; Sandy Rubi MD Report Number: [id number]: Total DLP = 478.00 mGy-cm Reason for [...] Hugo Terry MD 05/21/2025 01:24 PM EDT RP Dictated By: Hugo Terry MD Signed By: <Electronically signed by Hugo Terry MD in OV> 05/21/25 1324 DD/ 1246 TD/TT: 05/21/25 1317 Wicker Molded Candles: Procedure Note Donotuseinterpreter, Image - 05/21/[address] [place] [address] [address] Scan Report Signed Patient: Anisha Esposito EMR#: [id number] : 1950Acct:[id number] Age/Sex: 74 / FADM Date: 05/21/25 Loc: .ED Attending Dr: Ordering Physician: Edenilson Lane Date of Service: 05/21/25 Procedure(s): CT abdomen pelvis wo IV con Accession Number(s): [id number] cc: Edenilson Lane; Sandy Rubi MD Report Number: [id number]: Total DLP = 478.00 mGy-cm Reason for [...] 05/21/25 1324 DD/ 1246 TD/TT: 05/21/25 1317 Wicker Molded Candles: [facility] External Provider IMG CT PROCEDURES Edited Result - Final * Lipase (05/21/2025 11:03 AM EDT) Lipase 38 8 - 78 U/L [facility] 05/21/2025 11:0 3 AM EDT 05/21/2025 11:06 AM EDT Generic External Data Provider LAB BLOOD ORDERAB LES Final Result [facility] [address] [place] [phone] * Comprehensive Metabolic Panel (05/21/2025 11:03 AM EDT) Sodium 138 135 - 145 mmol/L [facility] Potassium 3.5 3.3 - 5.1 mmol/L [facility] Chloride 106 96 - 108 mmol/L [facility] Carbon Dioxide 22 22 - 29 mmol/L [facility] Anion Gap 14 12 - 20 [facility] Urea Nitrogen (BUN) 12 9 - 16 mg/dL [facility] Creatinine, Serum 0.66 0.5 - 1.4 mg/dL [facility] Creatinine Clr Calc Pharmacy 69.8 [facility] Comment:Provided height and weight: 160.02 cm,71.5 kg.eGFR (calculated from the MDRD study equation) and eCrCl(calculated from the Cockcroft-Gault equation) are based ondifferent parameters and may not yield comparable results.If eCrCl result is absurd, please check patient'sheight/weight. Estimated Glomerular Filt Rate >60 [facility] Comment:Chronic Kidney Disea se: Estimated GFR < 60 mL/min/1.12j5Xiguzx Kidney Disease: Estimated GFR < 15 mL/min/1.73m2 Glucose 94 60 - 115 mg/dL [facility] Calcium 9.9 8.4 - 10.2 mg/dL [facility] Bilirubin, Total 0.6 0.0 - 1.0 mg/dL [facility] Aspartate Amino Transferase 23 5 - 31 U/L [facility] Alanine Aminotransferase 16 0 - 31 U/L [facility] Total Protein 8.0 6.5 - 8.0 g/dL [facility] Albumin Level 4.5 3.5 - 5.0 g/dL [facility] Alkaline Phosphatase 107 39 - 117 U/L [facility] 05/21/2025 11:0 3 AM EDT 05/21/2025 11:06 AM EDT us Generic External Data Provider LAB BLOOD ORDERAB LES Final Result [facility] [address] [place] [phone] * (ABNORMAL) Urinalysis, Complete, with Reflex to Culture (05/21/2025 11:03 AM EDT) Color Urine Yellow [facility] Appearance Urine Clear [facility] PH 6.5 5.0 - 9.0 [facility] Glucose Urine UA Negative Negative mg/dL [facility] Urine Blood Negative Negative [facility] Specific [place] - Urine <=1.005 1.005 - 1.025 [facility] Urine Protein Negative Neg-Trace mg/dL [facility] Urine Ketones Negative Negative mg/dL [facility] Nitrite Urine Negative Negative [facility] Leukocyte Esterase Urine Trace(A) Negative [facility] RBC Urine 0-2 0 - 2 /HPF [facility] Urine WBC 0-5 0 - 5 /HPF [facility] Urine Squamous Epithelial Cell 0-2 0 - 2 /HPF [facility] Urine Bacteria None Seen None Seen [facility] Hyaline Casts, Urine 0-2 0 - 2 /LPF [facility] 05/21/2025 11:0 3 AM EDT 05/21/2025 11:06 AM EDT Narrative [facility] - 05/21/2025 11:16 AM EDT [id number], [employer] us Generic External Data Provider LAB URINE ORDERAB LES Final Result [facility] [address] [place] [phone] [phone] * (ABNORMAL) CBC auto differential (05/21/2025 11:03 AM EDT) White Blood Count 6.7 4.8 - 10.8 X10*3/uL [facility] Red Blood Count 3.81(L) 4.20 - 5.50 X10*6/uL [facility] Hemoglobin 10.7(L) 12.0 - 16.0 g/dl [facility] Hematocrit 33.3(L) 37.0 - 47.0 % [facility] Mean Corpuscular Volume 87.4 80.0 - 98.0 fL [facility] Mean Corpuscular Hemoglobin 28.1 27.0 - 33.0 pg [facility] Mean Corpuscular HGB Conc 32.1 31.0 - 35.0 g/dl [facility] Red Cell Distribution Width 13.9 11.0 - 16.0 % [facility] Platelet Count 163 160 - 400 X10*3/uL [facility] Mean Platelet Volume 11.3 9.4 - 12.3 fL [facility] Neutrophils Percent Auto 66.0 45 - 73 % [facility] Imm Gran Pct Auto 0.3 0.0 - 0.4 % [facility] Lymphocytes Percent Auto 20.2 20 - 40 % [facility] Monocytes Percent Auto 12.6(H) 2 - 11 % [facility] Eosinophils Percent Auto 0.6 0 - 4 % [facility] Basophils Percent Auto 0.3 0 - 2 % [facility] NRBC Pct Auto 0.0 0.0 - 0.2 /100WBC [facility] Neutrophils Absolute Auto 4.4 2.0 - 8.3 x10*3/uL [facility] Imm Gran Abs Auto 0.02 0.00 - 0.03 X10*3/uL [facility] Lymphocytes Absolute Auto 1.4 1.2 - 4.9 X10*3/uL [facility] Monocytes Absolute Auto 0.8 0.1 - 1.2 X10*3/uL [facility] Eosinophils Absolute Auto 0.0 0.0 - 0.4 X10*3/uL [facility] Basophils Absolute Auto 0.0 0.0 - 0.2 X10*3/uL [facility] NRBC Abs Auto 0.000 0.0 - 0.012 X10*3/uL [facility] 05/21/2025 11:0 3 AM EDT 05/21/2025 11:06 AM EDT us Generic External Data Provider LAB BLOOD ORDERAB LES Final Result [facility] [address] [place] [phone] documented in this encounter Visit Diagnoses Not on filedocumented in this encounter Additional Health Concerns Assessment Noted Time PHQ-9 Depression Total Score: 0 04/14/20 24 9:33 AM EDT documented as of this encounter Care Teams Vegetable Grader Relationship Specialty Start Date End Date Sandy Rubi MD [address] [place] [phone] PCP - General Family Medicine 08/06/18 documented as of this encounter
--- OUTSIDE RECORDS SUMMARY | 2025-05-21 17:28 | XMS_ITS | Encounter Summary ---
Author Organization [employer] Address 75 [facility] 7t [place] [address] Care Team Providers Care Outreach Educator Name Role Phone Sandy Rubi MD Primary Care Provider [phone] Encounter Details Date Type Department Care Team ([facility] st Contact Info) Description 05/25/2023 Orders Only [facility] MEDICINE [address] [place] [address] Sandy Rubi MD [address] [place] [address] Social History Tobacco Use Types Packs/Day Years [...] documented as of this encounter Care Teams Outreach Educator Relationship Specialty Start Date End Date Sandy Rubi MD [address] [place] [phone] PCP - General Family Medicine 08/06/18 documented as of this encounter
--- OUTSIDE RECORDS SUMMARY | 2025-05-21 17:28 | XMS_ITS | Encounter Summary ---
Author Organization [employer] Address 75 [facility] 7t [place] [address] Care Team Providers Care Textile Colorist Formulator Name Role Phone Sandy Rubi MD Primary Care Provider [phone] Reason for Visit * Reason Onset Date Comments Referral 01/10/2023 Encounter Details Date Type Department Care Team ([facility] st Contact Info) Description 01/10/2023 Telephone [facility] MEDICINE [address] [place], [place] [phone] Sandy Rubi MD [address] [place] [address] Referral Social History Tobacco Use Types Packs/Day [...] Pt would like to be sent to [facility] located at [id number]. Had a previous referral but she was referred back in 2019. Fax #: [phone] Any questions please contact pt at [phone] documented in this encounter Plan of Treatment Not on file documented as of this encounter Visit Diagnoses Not on filedocumented in this encounter Additional Health Concerns Assessment Noted Time PHQ-9 Depression Total Score: 0 12/20/19 23 1:06 PM EDT documented as of this encounter Care Teams Textile Colorist Formulator Relationship Specialty Start Date End Date Sandy Rubi MD [address] [place] [address] PCP - General Family Medicine 08/06/18 documented as of this encounter
--- OUTSIDE RECORDS SUMMARY | 2025-05-21 17:28 | XMS_ITS | Encounter Summary ---
Author Organization [employer] Address [address] [place] [address] 7t [place] [address] Care Team Providers Care Director Of Occupational Health Name Role Phone Sandy Rubi MD Primary Care Provider [phone] Reason for Referral * Imaging (Routine) - Closed Specialty Diagnoses / Procedures Referred By Contac t Referred To Contact Radiology Diagnoses Osteopenia of neck of femur, unspecified laterality Vitamin D deficiency Other specified disorders of bone density and structure, other site Procedures BD DEXA Axial Sandy Rubi MD [address] [place] [address] Phone: tel: fax: [address] Phone: tel: fax: Referral ID Status Reason Start Date Expiration Date Visits Re quested Visits Authorized [id number] Closed 05/12/2025 05/12/2026 1 1 Encounter Details Date Type Department Care Team (Late st Contact Info) Description 05/12/2025 Orders Only [facility] MEDICINE [address] [place] [phone] Sandy Rubi MD [address] [place] [address] [phone] Osteopenia of neck of femur, unspecified laterality (Primary Dx); Vitamin D deficiency; Other specified disorders of bone density and structure, other site Social History Tobacco Use Types Packs/Day Years [...] as of this encounter Plan of Treatment Scheduled Orders Name Type Priority Associated Diagnoses Orde r Schedule BD DEXA Axial Imaging Routine Osteopenia of neck of femur, unspecified laterality Vitamin D deficiency Other specified disorders of bone density and structure, other site Expected: 05/12/2025 (Approximate), Expires: 05/12/2026 documented as of this encounter Visit Diagnoses Diagnosis Osteopenia of neck of femur, unspecified laterality- Primary Vitamin D deficiency Other specified disorders of bone density and structure, other site documented in this encounter Additional Health Concerns Assessment Noted Time PHQ-9 Depression Total Score: 0 04/14/20 24 9:33 AM EDT documented as of this encounter Care Teams Director Of Occupational Health Relationship Specialty Start Date End Date Sandy Rubi MD [address] [place] [address] PCP - General Family Medicine 08/06/18 documented as of this encounter
--- OUTSIDE RECORDS SUMMARY | 2025-05-21 17:28 | XMS_ITS | Encounter Summary ---
Author Organization [employer] Address 75 [facility] 7t [place] [address] Care Team Providers Care Route Sales Manager Name Role Phone Sandy Rubi MD Primary Care Provider [phone] Encounter Details Date Type Department Care Team (Late st Contact Info) Description 01/10/2023 Orders Only [facility] MEDICINE [address] [place] [address] Sandy Rubi MD [address] [place] [address] Right foot pain (Primary Dx); Primary osteoarthritis [...] documented as of this encounter Care Teams Route Sales Manager Relationship Specialty Start Date End Date Sandy Rubi MD [address] [place] [phone] PCP - General Family Medicine 08/06/18 documented as of this encounter
--- OUTSIDE RECORDS SUMMARY | 2025-05-21 17:28 | XMS_ITS | Encounter Summary ---
Author Organization [employer] Address 75 [facility] 7t [place] [address] Care Team Providers Care Mail Rider Name Role Phone Sandy Rubi MD Primary Care Provider [phone] Encounter Details Date Type Department Care Team ([facility] st Contact Info) Description 12/10/2023 Orders Only [facility] MEDICINE [address] [place] [address] Sandy Rubi MD [address] [place] [address] Social History Tobacco Use Types Packs/Day Years [...] documented as of this encounter Care Teams Mail Rider Relationship Specialty Start Date End Date Sandy Rubi MD [address] [place] [phone] PCP - General Family Medicine 08/06/18 documented as of this encounter
--- OUTSIDE RECORDS SUMMARY | 2025-05-21 17:28 | XMS_ITS | Clinical Summary ---
Author Organization [address] [facility] Address [address] [place] [address] Phone Care Team Providers Care Layaway Clerk Name Role Phone Sandy Rubi MD Primary Care Provider [phone] Allergies No known active allergies Medications acetaminophen [...] Care Team Description 04/30/2025 Telephone Orthopedic Surgery [facility] [address] [phone] César Barbosa DPM 04/29/2025 9:45 AM EDT Consult Orthopedic Surgery [facility] [address] [phone] César Barbosa DPM Peripheral venous insufficiency (Primary [...] 07/28/2025 9:45 AM EST Office Visit Orthopedic Surgery [facility] [address] [phone] César Barbosa DPM [address] [phone] 09/03/2025 1:30 PM EST Consult Vascular Surgery [facility] [address] [place] [address] Genny Tapia MD [address] [place] [phone] Health Maintenance Due Date Last Done Comments [...] Insurance MEDICARE MEDICAID - [place] Care Teams Layaway Clerk Relationship Specialty Start Date End Date Sandy Rubi MD [address] [place] [phone] PCP - General Family Medicine 02/10/25
--- OUTSIDE RECORDS SUMMARY | 2025-05-21 17:28 | XMS_ITS | Patient Health Record ---
Author Organization [facility] Address [address] [place] [phone] Care Team Providers Care Hander In Name Role Phone Elicia PADILLA, Sandy Primary Care Provider Hugo Cain Unavailable [phone] Allergies Allergen (clinical drug ingredient) Drug/Non Drug Allergy documented on EMR Reaction Allergy Type Onset Date Status Penicillin Unknown Drug Allergy Active aspirin Aspirin Unknown Drug Allergy Active Reason For Referral No Information Medications Medication SIG (Take, Route, Frequency, Duration) Notes Start Date End Date Status Vitamin B6 50 MG 1 tablet Orally Once a day; Duration: 30 day(s) Active Vitamin C 500 MG as directed Orally Active Montelukast Sodium 10 MG TAKE 1 TABLET ( 10 MG) BY MOUTH IN THE EVENING Oral; Duration: 90 Days Active Vitamin D 1000unit 1 [...] Orally Twice a day for heartburn and reflux; Duration: 90 days Active Sucralfate 1 GM TAKE [...] Every 6 hours if needed for cramps /discomfort; Duration: 90 days Active Immunizations Vaccine Route Administration [...] Problem Status W/U Status Risk Notes Problem Epigastric pain (68274520) Epigastric abdominal pain (R10.13) Active confirmed Problem Diverticulitis of colon (441091348) Diverticulitis of large intestine without perforation or abscess without bleeding (K57.32) Active confirmed Problem Screening for malignant neoplasm of colon (695807738) Encounter for screening for malignant neoplasm of colon (Z12.11) Active confirmed Problem Screening for malignant neoplasm of rectum (953537287) Encounter for screening for malignant neoplasm of rectum (Z12.12) Active confirmed Problem Gastroesophageal reflux disease without esophagitis (396396899) Gastroesophageal reflux disease without esophagitis (K21.9) Active confirmed Problem Fatty liver (372576388) Fatty liver (K76.0) Active confirmed Problem Left upper quadrant pain (498852254) Abdominal pain, left upper quadrant (R10.12) Active confirmed Problem Gastritis (6520549) Gastritis (K29.70) Active c onfirmed Problem History of adenomatous polyp of colon (857744838) Hx of adenomatous colonic polyps (Z86.010) Active confirmed Problem Esophageal reflux finding (784547700) Gastroesophageal reflux (K21.9) Active confirmed Problem Cirrhosis - non-alcoholic (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) Cirrhosis of liver without ascites, 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) Active confirmed Problem Irritable bowel syndrome characterized by constipation (070560067) Irritable bowel syndrome with constipation (K58.1) Active confirmed Problem Nonspecific mesenteric adenitis (789435161) Mesenteric adenitis (I88.0) Active confirmed Problem Diverticulosis of colon (202320613) Diverticulosis of colon (K57.30) Active confirmed Problem Chest pain (46819139) Xiphoid pain (R07.89) Active confirmed Vital Signs Blood pressure diastolic 11 mm Hg 11/18/2024 Height 64 in 11/18/2024 Blood pressure systolic 111 mm Hg 11/18/2024 Weight 166 lbs 11/18/2024 BMI 28.49 kg/m2 11/18/2024 Encounters Encounter Location Date Provider Diagnosis [facility] [address] [place] [phone] 11/18/2024 Hugo Jeong Gastroesophageal ref lux disease without esophagitis K21.9 ; Irritable bowel syndrome with constipation K58.1 ; Hx of adenomatous colonic polyps Z86.010 ; Abdominal pain, left upper quadrant R10.12 and Cirrhosis of liver without ascites, unspecified hepatic cirrhosis type K74.60 [facility] [address] [place] [phone] 04/21/2025 Hugo Jeong Assessments Encounter Date Diagnosis [...] FERRITIN 04/21/2021 PROTHROMBIN TIME (PT, INR) 04/21/2021 [id number] (A1A) 04/21/2021 ALPHA-FETOPROTEIN,TUMOR MARKER 4 FLUOR. ANTINUCLEAR [...] Start Date Coverage End Date MEDICARE OF [place] [address] ZAHEER CARDOZO [address] [id number] JIM CARRION Self - patient is the insured MEDICAID OF [facility] [address] [place] [phone] [id number] JIM CARRION Self - patient is the insured Medical (General) History Medical History History ICD Code Left-sided breast [id number] owed by Dr. Polanco Hypothyroidism Asthma Kidney stones Pernicious anemia Arthritis Denies AL,DM,CVA,renal disease Colonoscopy in April 2 revealed a small tubular adenoma that was removed, as well as mild diverticulosis and small internal hemorrhoids Upper endoscopy in April 2012 revealed only a small hiatal hernia, but no evidence of any H. pylori, esophagitis, nor ulcer disease. Urinary incontinence Pulmonary embolus--on Coumadin--but fini shed in 08/2016 Denies AL,DM,CVA,renal disease Colonoscopy 01/2017--1 small tubular jabier sarthak [...] any complication Cirrhosis noted on imaging s edwardes in 2020, although a CT scan in [...]
== END 2025-05-21 15:18 | disposition home or self-care (01) ==
PROVIDERS: Physician Assistant; Emergency Provider Emergency Medicine; PCP Family Medicine
DX: K57.92 Diverticulitis of intestine, part unspecified, without perforation or abscess without bleeding (principal); R10.32 Left lower quadrant pain
CPT/HCPCS: 36415; 74176; 80053; 81001; 83690; 85025; 99284

== ENCOUNTER → 2025-05-21 12:40 | Outpatient (BNV) | payer MEDICARE, MEDICAID, SELFPAY | PROVIDERS: Emergency Provider Emergency Medicine; PCP Family Medicine; Visit Provider Radiology Diagnostic Radiology | DX: K57.30 Diverticulosis of large intestine without perforation or abscess without bleeding (principal); K44.9 Diaphragmatic hernia without obstruction or gangrene | CPT/HCPCS: 74176 ==

== ENCOUNTER 2025-06-01 10:25 | Outpatient (REF) | payer MEDICARE, MEDICAID, SELFPAY ==
--- NOTE | ~2025-06-01 | US_ITS ---
CLINICAL HISTORY: N20.0 - Calculus of kidney US renal Comparison: 12/05/2023 Findings: Right kidney 10.0 cm length. 9 x 12 mm nonobstructing stone. No other significant abnormality. Left kidney 10.9 cm length. No significant focal abnormality. No bilateral hydronephrosis. Normal bilateral renal echogenicity. Impression: 9 x 12 mm nonobstructing right renal stone Otherwise unremarkable This document has been electronically signed by: Scar Christiansen MD on 06/01/2025 22:28:55
--- OUTSIDE RECORDS SUMMARY | 2025-06-01 12:35 | XMS_ITS | Encounter Summary ---
Author Organization [employer] Address 75 [facility] 7t [place] [address] Care Team Providers Care Aircraft Engine Specialist Name Role Phone Sandy Rubi MD Primary Care Provider [phone] Encounter Details Date Type Department Care Team ([facility] st Contact Info) Description 12/10/2023 Orders Only [facility] MEDICINE [address] [place] [address] Sandy Rubi MD [address] [place] [address] Social History Tobacco Use Types Packs/Day Years [...] documented as of this encounter Care Teams Aircraft Engine Specialist Relationship Specialty Start Date End Date Sandy Rubi MD [address] [place] [phone] PCP - General Family Medicine 08/06/18 documented as of this encounter
--- OUTSIDE RECORDS SUMMARY | 2025-06-01 12:36 | XMS_ITS | Patient Health Record ---
Author Organization [facility] Address [address] [place] [phone] Care Team Providers Care Overhead Crane Truck Loader Name Role Phone Elicia PADLILA, Sandy Primary Care Provider Hugo Cain Unavailable [phone] Allergies Allergen (clinical drug ingredient) Drug/Non Drug [...] W/U Status Risk Notes Problem Epigastric pain (78817887) Epigastric abdominal pain (R10.13) Active confirmed Problem Diverticulitis of colon (719439090) Diverticulitis of large intestine without perforation or abscess without bleeding (K57.32) Active confirmed Problem Screening for malignant neoplasm of colon (026960141) Encounter for screening for malignant neoplasm of colon (Z12.11) Active confirmed Problem Screening for malignant neoplasm of rectum (417127343) Encounter for screening for malignant neoplasm of rectum (Z12.12) Active confirmed Problem Gastroesophageal reflux disease without esophagitis (967955957) Gastroesophageal reflux disease without esophagitis (K21.9) Active confirmed Problem Fatty liver (792558080) Fatty liver (K76.0) Active confirmed Problem Left upper quadrant pain (303631023) Abdominal pain, left upper quadrant (R10.12) Active confirmed Problem Gastritis (3962528) Gastritis (K29.70) Active c onfirmed Problem History of adenomatous polyp of colon (810508674) Hx of adenomatous colonic polyps (Z86.010) Active confirmed Problem Esophageal reflux finding (039300422) Gastroesophageal reflux (K21.9) Active confirmed Problem 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) Cirrhosis of liver without ascites, 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) Active confirmed Problem Irritable bowel syndrome characterized by constipation (754851700) Irritable bowel syndrome with constipation (K58.1) Active confirmed Problem Nonspecific mesenteric adenitis (762348098) Mesenteric adenitis (I88.0) Active confirmed Problem Diverticulosis of colon (142521938) Diverticulosis of colon (K57.30) Active confirmed Problem Chest pain (21889851) Xiphoid pain (R07.89) Active confirmed Vital Signs Blood pressure diastolic 11 mm Hg 11/18/2024 Height 64 in 11/18/2024 Blood pressure systolic 111 mm Hg 11/18/2024 Weight 166 lbs 11/18/2024 BMI 28.49 kg/m2 11/18/2024 Encounters Encounter Location Date Provider Diagnosis [facility] [address] [place] [phone] 11/18/2024 Hugo Jeong Gastroesophageal ref lux disease without esophagitis K21.9 ; Irritable bowel syndrome with constipation K58.1 ; Hx of adenomatous colonic polyps Z86.010 ; Abdominal pain, left upper quadrant R10.12 and Cirrhosis of liver without ascites, unspecified hepatic cirrhosis type K74.60 [facility] [address] [place] [phone] 04/21/2025 Hugo Jeong Assessments Encounter Date Diagnosis [...] FERRITIN 04/21/2021 PROTHROMBIN TIME (PT, INR) 04/21/2021 [id number] (A1A) 04/21/2021 ALPHA-FETOPROTEIN,TUMOR MARKER 4 FLUOR. ANTINUCLEAR [...] Start Date Coverage End Date MEDICARE OF [place] [address] ZAHEER CARDOZO [id number] JIM CARRION Self - patient is the insured MEDICAID OF [facility] [address] [place] [phone] [id number] JIM CARRION Self - patient is the insured Medical (General) History Medical History History ICD Code Left-sided breast drpzmgnnv-ri-gkdc-foll owed by Dr. Polanco Hypothyroidism Asthma Kidney stones Pernicious anemia Arthritis Denies IN,DM,CVA,renal disease Colonoscopy in April 2 revealed a small tubular adenoma that was removed, as well as mild diverticulosis and small internal hemorrhoids Upper endoscopy in April 2012 revealed only a small hiatal hernia, but no evidence of any H. pylori, esophagitis, nor ulcer disease. Urinary incontinence Pulmonary embolus--on Coumadin--but fini shed in 08/2016 Denies IN,DM,CVA,renal disease Colonoscopy 01/2017--1 small tubular jabier sarthak [...]
--- OUTSIDE RECORDS SUMMARY | 2025-06-01 12:36 | XMS_ITS | Clinical Summary ---
Author Organization [employer] Address [address] [place] [address] 7t [place] [address] Care Team Providers Care Extended Day Teacher Name Role Phone Shanel Rubi MD Primary Care Provider [phone] Allergies Active Allergy Reactions Criticality Noted Date [...] per day). 75 mL 1 12/10/19 24 Active HYDROcodone Bit-Homatrop MBr 5-1.5 MG/5ML [...] evening. 90 tablet 3 04/14/20 24 Active magic mouthwash (lidocaine, diphenhydrAMINE, Maalox 1:1:1) Swish and spit 15 mL every 4 (four) hours if needed for mucositis or stomatitis (oral pain). 450 each 01/27/20 25 Active pantoprazole (ProtoNix) 40 MG EC tablet Take 1 tablet (40 mg) by mouth before breakfast. Do not crush, chew, or split. 180 tablet 3 01/30/20 25 Active acetaminophen (Tylenol Extra Strength) 500 MG tablet Take one or two tablets by mouth every 8 hours as needed for pain or fever. Maximum 6 tablets per day. 90 tablet 3 02/09/20 25 Active Active Problems Problem Noted Date Diagnosed [...] knee - Following with Dr. Mitchell at [facility] - s/p right knee partial medial and lateral meniscectomies, chondroplasty, and plica excision on 06/22/23 - continue APAP prn Assessment & Plan (05/15/2023 4:54 PM EDT): - MRI on 04/16/23 showed lateral and medial meniscus tear of right knee - Following with Dr. Mitchell - Anticipating a surgery in June APAP prn Tear of lateral meniscus of knee 05/15/2023 Assessment & Plan (08/11/2023 6:07 AM EST): - MRI on 04/16/23 showed lateral and medial meniscus tear of right knee - Following with Dr. Mitchell at [facility] - s/p right knee partial medial and lateral meniscectomies, chondroplasty, and plica excision on 06/22/23 - continue APAP prn Assessment & Plan (05/15/2023 4:54 PM EDT): - MRI on 04/16/23 showed lateral and medial meniscus tear of right knee - Following with Dr. Mitchell - Anticipating a surgery in June APAP prn Leg cramp 05/15/2023 Assessment & [...] posterior horn of the medial meniscus. 2. Mcxv-zs-kbagoooj patellofemoral arthrosis. 3. Mild medial compartment arthrosis. [...] posterior horn of the medial meniscus. 2. Nhsr-hk-ikvchwin patellofemoral arthrosis. 3. Mild medial compartment arthrosis. [...] Plan (04/26/2025 6:04 AM EDT): - Dx 07/29/13 while pt [...] 02/27/2023 Overview (02/27/2023): - already evaluated by grab hooker, last seen in 2019 - no rheumatological abnormality, pt has hypothyroidism - consider repeating lab Assessment & Plan (05/15/2023 5:17 PM EDT): - evaluated by grab hooker and was given a reassurance that she does not have rheumatological problem Right foot pain 12/23/2022 Assessment & Plan (01/31/2025 8:39 AM EDT): -Mar 2022 X-ray showed OA -Seen by flanging machine operator and Dx plantar fasciitis -Continue ice, stretching exercise, and APAP prn -Continue wearing comfortable shoes. Assessment & Plan (04/15/2024 8:58 AM EDT): -Mar 2022 X-ray showed OA -Seen by flanging machine operator and Dx plantar fasciitis -Continue ice, stretching exercise, and APAP prn -Continue wearing comfortable shoes. Assessment & Plan (12/23/2022 6:32 PM EDT): -Mar 2022 X-ray showed OA -Seen by flanging machine operator and Dx plantar fasciitis -Continue ice, stretching [...] 5:08 PM EDT): - Evaluated by Dr. Jeong GI, last seen in 2021 - continue [...] -Mar 2022 X-ray showed OA -Seen by flanging machine operator and Dx plantar fasciitis -Continue ice, stretching exercise, and APAP prn -Continue wearing comfortable shoes. Assessment & Plan (05/15/2023 5:14 PM EDT): -Mar 2022 X-ray showed OA -Seen by flanging machine operator and Dx plantar fasciitis -Continue ice, stretching exercise, and APAP prn -Continue wearing comfortable shoes. Assessment & Plan (12/18/2022 6:12 PM EDT): -Mar 2022 X-ray showed OA -Seen by flanging machine operator and Dx plantar fasciitis -Continue ice, stretching [...] - most recent EKG on 04/14/2025, borderline GA. Last EKG in 2021 in [facility] shows GA 202 ms - review medications - will consider Holter monitor her palpitation becomes more frequent Assessment & Plan (05/15/2023 5:06 PM EDT): - most recent EKG in 2021 in [facility] shows GA 202 ms - review medications - asymptomatic, [...] ESWL February 2023 Right ESWL -Followed by [facility] Urology provider, last seen on 06/12/24 -Most [...] ESWL February 2023 Right ESWL -Followed by [facility] Urology provider, last seen on 06/12/24 -Most [...] ESWL February 2023 Right ESWL -Followed by [facility] Urology provider, last seen on 06/12/24 -Most [...] ESWL February 2023 Right ESWL -Followed by [facility] Urology provider, last seen on 02/23/23 -Most [...] ESWL February 2023 Right ESWL -Followed by [facility] Urology provider, last seen on 02/23/23 -Most [...] ECSWL May 2019 Right ESWL -Followed by [facility] Urology provider, last seen on 10/17/22 -Most [...] - continue vitamin B12 IM monthly at [facility] Heme / Onc - continue folic acid supplement Assessment & Plan (01/31/2025 8:37 AM EDT): - following with Dr. Polanco - continue vitamin B12 IM monthly at [facility] Heme / Onc - continue folic acid supplement Assessment & Plan (09/29/2024 10:57 AM EST): - following with Dr. Polanco - continue vitamin B12 IM monthly at [facility] Heme / Onc - continue folic acid supplement Assessment & Plan (11/07/2023 5:26 AM EDT): - following with Dr. Polanco - continue vitamin B12 IM monthly at [facility] Heme / Onc - continue folic acid supplement Assessment & Plan (11/07/2023 5:25 AM EDT): >>ASSESSMENT AND PLAN FOR PERNICIOUS ANEMIA WRITTEN ON 12/18/2022 6:36 PM BY SHANEL RUBI MD - following with Dr. Polanco - vahid vitamin B12 IM monthly at [facility] Heme / Onc - continue folic acid supplement Assessment & Plan (11/07/2023 5:25 AM EDT): >>ASSESSMENT AND PLAN FOR PERNICIOUS ANEMIA WRITTEN ON 05/15/2023 5:17 PM BY SHANEL RUBI MD - following with Dr. Polanco - vahid vitamin B12 IM monthly at [facility] Heme / Onc - continue folic acid supplement Assessment & Plan (11/07/2023 5:25 AM EDT): >>ASSESSMENT AND PLAN FOR PERNICIOUS ANEMIA WRITTEN ON 08/11/2023 6:09 AM BY SHANEL RUBI MD - following with Dr. Polanco - continue vitamin B12 IM monthly at [facility] Heme / Onc - continue folic acid [...] Encounters Date Type Department Care Team Description 05/26/2025 Telephone [facility] [address] [place] [address] Shanel Rubi MD ER Follow-up 05/21/2025 Orders Only GENERIC EXTERNAL DATA DEPARTMENT Provider, Generic External Data 05/12/2025 Orders Only [facility] [address] [place] [address] Shanel Rubi MD Osteopenia of neck of femur, unspecified laterality (Primary Dx); Vitamin D deficiency; Other specified disorders of bone density and structure, other site 05/12/2025 Orders Only [facility] [address] [place] [address] Shanel Rubi MD Acquired hypothyroidism (Primary Dx); Osteopenia of neck of femur, unspecified laterality; Hyperparathyroidism, unspecified ([facility]/HCC) 04/14/2025 1:30 PM EDT Office Visit [facility] [address] [place] [phone] Shanel Rubi MD Acquired hypothyroidism (Primary Dx); [...] intra-abdominal lymph nodes, unspecified B-cell lymphoma type ([facility]) 04/14/2025 Travel 04/13/2025 Travel 04/13/2025 Telephone [facility] [address] [place] [address] Shanel Rubi MD chart prep from Last 3 Months Immunizations Immunization Administration [...] housing situation today? I have sudhashankar ferrer 01/29/[address] you [...] PM EDT Narrative 05/21/2025 1:27 PM EDT [address] [address] [address] Scan Report Signed Patient: Anisha Esposito MR#: [id number] : 1950 Acct:[id number] Age/Sex: 74 / F ADM Date: 05/21/25 Loc: HO.ED Attending Dr: Ordering Physician: Edenilson Lane Date of Service: 05/21/25 Procedure(s): CT abdomen pelvis wo IV con Accession Number(s): [id number] cc: Edenilson Lane; Shanel Rubi MD Report Number: [id number]: Total DLP = 478.00 mGy-cm Reason for [...] 05/21/25 1324 DD/ 1246 TD/TT: 05/21/25 1317 Acquisition Marketing Coordinator: Procedure Note Donotuseinterpreter, Image - 05/21/[address] [address] [address] Scan Report Signed Patient: Anisha Esposito EMR#: [id number] : 1950Acct:[id number] Age/Sex: 74 / FADM Date: 05/21/25 Loc: HO.ED Attending Dr: Ordering Physician: Edenilson Lane Date of Service: 05/21/25 Procedure(s): CT abdomen pelvis wo IV con Accession Number(s): [id number] cc: Edenilson Lane; Shanel Rubi MD Report Number: [id number]: Total DLP = 478.00 mGy-cm Reason for [...] 05/21/25 1324 DD/ 1246 TD/TT: 05/21/25 1317 Acquisition Marketing Coordinator: [facility] External Provider IMG CT PROCEDURES Edited Result - Final * (ABNORMAL) Urinalysis, Complete, with Reflex to Culture (05/21/2025 11:03 AM EDT) Color Urine Yellow [facility] Appearance Urine Clear [facility] PH 6.5 5.0 - 9.0 [facility] Glucose Urine UA Negative Negative mg/dL [facility] Urine Blood Negative Negative [facility] Specific [place] - Urine <=1.005 1.005 - 1.025 [facility] Urine Protein Negative Neg-Trace mg/dL [facility] Urine Ketones Negative Negative mg/dL [facility] Nitrite Urine Negative Negative [facility] Leukocyte Esterase Urine Trace(A) Negative [facility] RBC Urine 0-2 0 - 2 /HPF [facility] Urine WBC 0-5 0 - 5 /HPF [facility] Urine Squamous Epithelial Cell 0-2 0 - 2 /HPF [facility] Urine Bacteria None Seen None Seen [facility] Hyaline Casts, Urine 0-2 0 - 2 /LPF [facility] 05/21/2025 11:0 3 AM EDT 05/21/2025 11:06 AM EDT Narrative [facility] - 05/21/2025 11:16 AM EDT [id number], Clean Catch us Generic External Data Provider LAB URINE ORDERAB LES Final Result [facility] [address] [place] [address] [phone] * (ABNORMAL) CBC auto differential (05/21/2025 11:03 AM EDT) White Blood Count 6.7 4.8 - 10.8 X10*3/uL [facility] Red Blood Count 3.81(L) 4.20 - 5.50 X10*6/uL [facility] Hemoglobin 10.7(L) 12.0 - 16.0 g/dl [facility] Hematocrit 33.3(L) 37.0 - 47.0 % [facility] Mean Corpuscular Volume 87.4 80.0 - 98.0 fL [facility] Mean Corpuscular Hemoglobin 28.1 27.0 - 33.0 pg [facility] Mean Corpuscular HGB Conc 32.1 31.0 - 35.0 g/dl [facility] Red Cell Distribution Width 13.9 11.0 - 16.0 % [facility] Platelet Count 163 160 - 400 X10*3/uL [facility] Mean Platelet Volume 11.3 9.4 - 12.3 fL [facility] Neutrophils Percent Auto 66.0 45 - 73 % [facility] Imm Gran Pct Auto 0.3 0.0 - 0.4 % [facility] Lymphocytes Percent Auto 20.2 20 - 40 % [facility] Monocytes Percent Auto 12.6(H) 2 - 11 % [facility] Eosinophils Percent Auto 0.6 0 - 4 % [facility] Basophils Percent Auto 0.3 0 - 2 % [facility] NRBC Pct Auto 0.0 0.0 - 0.2 /100WBC [facility] Neutrophils Absolute Auto 4.4 2.0 - 8.3 x10*3/uL [facility] Imm Gran Abs Auto 0.02 0.00 - 0.03 X10*3/uL [facility] Lymphocytes Absolute Auto 1.4 1.2 - 4.9 X10*3/uL [facility] Monocytes Absolute Auto 0.8 0.1 - 1.2 X10*3/uL [facility] Eosinophils Absolute Auto 0.0 0.0 - 0.4 X10*3/uL [facility] Basophils Absolute Auto 0.0 0.0 - 0.2 X10*3/uL [facility] NRBC Abs Auto 0.000 0.0 - 0.012 X10*3/uL [facility] 05/21/2025 11:0 3 AM EDT 05/21/2025 11:06 AM EDT us Generic External Data Provider LAB BLOOD ORDERAB LES Final Result Performing Organization Address [facility]/ZIP Co de Phone Number [facility] [address] [place] [address] [phone] * Lipase (05/21/2025 11:03 AM EDT) Lipase 38 8 - 78 U/L [facility] 05/21/2025 11:0 3 AM EDT 05/21/2025 11:06 AM EDT Generic External Data Provider LAB BLOOD ORDERAB LES Final Result Performing Organization Address [facility]/ZIP Co de Phone Number [facility] [address] [place] [address] [phone] * Comprehensive Metabolic Panel (05/21/2025 11:03 AM EDT) Sodium 138 135 - 145 mmol/L [facility] Potassium 3.5 3.3 - 5.1 mmol/L [facility] Chloride 106 96 - 108 mmol/L [facility] Carbon Dioxide 22 22 - 29 mmol/L [facility] Anion Gap 14 12 - 20 [facility] Urea Nitrogen (BUN) 12 9 - 16 mg/dL [facility] Creatinine, Serum 0.66 0.5 - 1.4 mg/dL [facility] Creatinine Clr Calc Pharmacy 69.8 [facility] Comment:Provided height and weight: 160.02 cm,71.5 kg.eGFR (calculated from the MDRD study equation) and eCrCl(calculated from the Cockcroft-Gault equation) are based ondifferent parameters and may not yield comparable results.If eCrCl result is absurd, please check patient'sheight/weight. Estimated Glomerular Filt Rate >60 [facility] Comment:Chronic Kidney Disea se: Estimated GFR < 60 mL/min/1.98s2Gndtyc Kidney Disease: Estimated GFR < 15 mL/min/1.73m2 Glucose 94 60 - 115 mg/dL [facility] Calcium 9.9 8.4 - 10.2 mg/dL [facility] Bilirubin, Total 0.6 0.0 - 1.0 mg/dL [facility] Aspartate Amino Transferase 23 5 - 31 U/L [facility] Alanine Aminotransferase 16 0 - 31 U/L [facility] Total Protein 8.0 6.5 - 8.0 g/dL [facility] Albumin Level 4.5 3.5 - 5.0 g/dL [facility] Alkaline Phosphatase 107 39 - 117 U/L [facility] 05/21/2025 11:0 3 AM EDT 05/21/2025 11:06 AM EDT us Generic External Data Provider LAB BLOOD ORDERAB LES Final Result [facility] [address] [place] [address] [phone] * ECG 12 lead (04/14/2025 1:42 PM EDT) Narrative Shanel Rubi MD - 04/14/2025 1:42 PM EDT Rate 68, sinus rhythm, borderline GA, narrow QRS, normal QTc, normal axis. No acute ischmec ST-T changes. q wave on V2. Shanel Rubi MD ECG ORDERABLES Final Result * Lipid Panel with Reflex to Direct LDL (09/30/2024 8:22 AM EST) Triglycerides 38 <150 mg/dL [facility] Comment:Desirable Triglyceri de: less than 150 mg/dLBorderline High Triglyceride 150-199 mg/dLHigh Triglyceride: 200-499 mg/dLVery High Triglyceride: greater than or equal to 5OO mg/dL Cholesterol 123 <200 mg/dL [facility] Comment:Desirable Cholestero l: less than 200 mg/dLBorderline High Cholesterol: 200-239 mg/dLHigh Cholesterol: greater than 239 mg/dL LDL Cholesterol Calculated 69 <100 mg/dL [facility] Comment:Desirable LDL: less than 100 mg/dLNear Optimal/Above Optimal LDL: 110- 129 mg/dLBorderline High LDL: 130-159 mg/dLHigh LDL: 160-189 mg/dLVery High LDL: greater than or equal to 190 mg/dL HDL Cholesterol 47 >40 mg/dL [facility] Comment:Desirable HDL: great er than 40 mg/dL Note: This HDL assay may give artificially low results in patients with liver disease. Blood 09/30/2024 8:22 AM EST 09/30/2024 11:35 AM EST Shanel Rubi MD LAB BLOOD ORDERABLES Final Resul t [facility] [address] [place] [address] [phone] * Hm Colonoscopy (03/10/2023) Colonoscopy Normal [...] LABS Fi nal Result Performing Organization Address City/State/[facility] Co de Phone Number [facility] [address] from Last 3 Months or Most Recently Relevant to Health Maintenance Insurance [facility] STANDARD MEDICARE [place] STAND AD[place] Care Teams Extended Day Teacher Relationship Specialty Start Date End Date Shanel Rubi MD [address] [place] [phone] PCP - General Family Medicine 08/06/18
--- OUTSIDE RECORDS SUMMARY | 2025-06-01 12:36 | XMS_ITS | Encounter Summary ---
Author Organization [employer] Address [address] [facility] 7t [place] [address] Care Team Providers Care Armored Car Messenger Name Role Phone Sandy Rubi MD Primary Care Provider Encounter Details Date Type Department Care Team (Late st Contact Info) Description 01/10/2023 Orders Only [facility] [address] [place] [address] Sandy Rubi MD [address] [place] [address] Right foot pain (Primary Dx); Primary osteoarthritis [...] documented as of this encounter Care Teams Armored Car Messenger Relationship Specialty Start Date End Date Sandy Rubi MD [address] [place] [phone] PCP - General Family Medicine 08/06/18 documented as of this encounter
--- OUTSIDE RECORDS SUMMARY | 2025-06-01 12:36 | XMS_ITS | Clinical Summary ---
Author Organization [address] [facility] Address [address] [place] [address] Phone Care Team Providers Care Biology Specialist Name Role Phone Sandy Rubi MD Primary Care Provider [phone] Allergies No known active allergies Medications acetaminophen [...] Care Team Description 04/30/2025 Telephone Orthopedic Surgery [facility] [address] [phone] César Barbosa DPM 04/29/2025 9:45 AM EDT Consult Orthopedic Surgery [facility] [address] [phone] César Barbosa DPM Peripheral venous insufficiency (Primary [...] 9:45 AM EST Office Visit Orthopedic Surgery [facility] [address] [phone] César Barbosa DPM [address] [phone] 09/03/2025 1:30 PM EST Consult Vascular Surgery [facility] [address] [place] [address] Genny Tapia MD [address] [place] [phone] Health Maintenance Due Date Last Done Comments [...] Insurance MEDICARE MEDICAID - [place] Care Teams Biology Specialist Relationship Specialty Start Date End Date Sandy Rubi MD [address] [place] [phone] PCP - General Family Medicine 02/10/25
--- OUTSIDE RECORDS SUMMARY | 2025-06-01 12:36 | XMS_ITS | Encounter Summary ---
Author Organization [employer] Address [address] [place] [address] [address] [place] [address] Care Team Providers Care Prepress Operator Name Role Phone Sandy Rubi MD Primary Care Provider [phone] Reason for Referral * Imaging (Routine) - Closed Specialty Diagnoses / Procedures Referred By Contac t Referred To Contact Radiology Diagnoses Osteopenia of neck of femur, unspecified laterality Vitamin D deficiency Other specified disorders of bone density and structure, other site Procedures BD DEXA Axial Sandy Rubi MD [address] [place] [address] Phone: tel: fax: [address] Phone: tel: fax: Referral ID Status Reason Start Date Expiration Date Visits Re quested Visits Authorized [id number] Closed 05/12/2025 05/12/2026 1 1 Encounter Details Date Type Department Care Team (Late st Contact Info) Description 05/12/2025 Orders Only [facility] [address] [place] [phone] Sandy Rubi MD [address] [place] [phone] Osteopenia of neck of femur, unspecified laterality [...] documented as of this encounter Care Teams Prepress Operator Relationship Specialty Start Date End Date Sandy Rubi MD [address] [place] [address] PCP - General Family Medicine 08/06/18 documented as of this encounter
--- OUTSIDE RECORDS SUMMARY | 2025-06-01 12:36 | XMS_ITS | Encounter Summary ---
Author Organization [employer] Address [address] [facility] 7t [place] [address] Care Team Providers Care Healthcare Corporate Account Director Name Role Phone Sandy Rubi MD Primary Care Provider [phone] Reason for Visit * Reason Onset Date Comments Referral 01/10/2023 Encounter Details Date Type Department Care Team ([facility] st Contact Info) Description 01/10/2023 Telephone [facility] [address] [place], [place] [phone] Sandy Rubi MD [address] [place] [address] Referral Social History Tobacco Use Types Packs/Day [...] Pt would like to be sent to [facility] located at [address]. Had a previous referral but she was referred back in 2019. Fax #: [phone] Any questions please contact pt at [phone] documented in this encounter Plan of Treatment Not on file documented as of this encounter Visit Diagnoses Not on filedocumented in this encounter Additional Health Concerns Assessment Noted Time PHQ-9 Depression Total Score: 0 12/20/19 23 1:06 PM EDT documented as of this encounter Care Teams Healthcare Corporate Account Director Relationship Specialty Start Date End Date Sandy Rubi MD [address] [place] [address] PCP - General Family Medicine 08/06/18 documented as of this encounter
--- OUTSIDE RECORDS SUMMARY | 2025-06-01 12:36 | XMS_ITS | Encounter Summary ---
Author Organization [employer] Address [address] [facility] 7t [place] [address] Care Team Providers Care Reservations Clerk Name Role Phone Sandy Rubi MD Primary Care Provider [phone] Encounter Details Date Type Department Care Team ([facility] st Contact Info) Description 05/25/2023 Orders Only [facility] MED[facility] [address] [place] [address] Sandy Rubi MD [address] [place] [address] Social History Tobacco Use Types Packs/Day Years [...] documented as of this encounter Care Teams Reservations Clerk Relationship Specialty Start Date End Date Sandy Rubi MD [address] [place] [id number] PCP - General Family Medicine 08/06/18 documented as of this encounter
== END 2025-06-01 10:26 | disposition home or self-care (01) ==
LOC: HO.US 10:25
PROVIDERS: PCP Family Medicine; Visit Provider Nurse Practitioner Family
DX: N20.0 Calculus of kidney (principal)
CPT/HCPCS: 76775

== ENCOUNTER → 2025-06-01 10:28 | Outpatient (BNV) | payer MEDICARE, MEDICAID, SELFPAY | PROVIDERS: PCP Family Medicine; Visit Provider Radiology Diagnostic Radiology | DX: N20.0 Calculus of kidney (principal) | CPT/HCPCS: 76775 ==

== ENCOUNTER 2025-06-09 10:01 | Outpatient (AMB) | payer MEDICARE, MEDICAID, SELFPAY ==
--- NOTE | 2025-06-09 10:10 | MHC.OFFVIS ---
Intake Visit Reasons: 1y/ US Intake Note: Patient is present for Ultrasound follow up Urology Med: Vitamin C Antibiotic Allergy: Penicillin Blood Thinner: None Furnace Loader Required: No Accompanied by: Self / Same As Patient Allergies aspirin (ASPIRIN) Allergy (Intermediate, Verified 06/09/25 10:53) RASH Penicillins (PENICILLINS) Allergy (Intermediate, Verified 06/09/25 10:53) HIVES, BLACK SPOTS Medication List - Last Reconciled 06/09/25 by KATT Lomax acetaminophen (Tylenol) 325 mg PO QID PRN acetaminophen-codeine 300-30 mg 1 tab PO Q6H PRN albuterol sulfate 90 mcg/actuation 2 puffs inhalation Q4-6H PRN ascorbic acid (vitamin C) (Vitamin C) 1 g PO Q6H cholecalciferol (vitamin D3) 25 mcg PO DAILY cyanocobalamin (vitamin B-12) 1,000 mcg IM [id number] dicyclomine 2 caps PO Q6H PRN folic acid 1 mg PO DAILY levothyroxine 88 mcg PO DAILY Magic Mouthwash Diphen/Lido/Antacid 1:1:1 10 mL PO QID meclizine 1 tab PO TID PRN montelukast 10 mg PO DAILY pantoprazole 40 mg PO DAILY simethicone 250 mg PO BID PRN HPI Comments Details: Anisha is a very pleasant 74-year-old female who is a patient of Dr. Rubi. She has a past medical history of IBS, lymphoma, diverticulitis, diverticulosis, hypothyroidism, GERD, asthma, B12 deficiency anemia, pulmonary embolism, osteoarthritis of bilateral knees, and left-sided breast cancer status post lumpectomy/radiation/tamoxifen. She presents to the office today for follow-up of her nephrolithiasis. In discussion with the patient today she denies having had any bothersome urological issues since her last office visit here approximately 1 year ago however she does discuss her ongoing issues with diverticulosis/diverticulitis. We discussed variability in sizing of nephrolithiasis noted on most recent CT of the abdomen and pelvis without IV contrast verses renal imaging. These results are as follows CT 05/30 there are nonobstructing right renal calculi measuring up to 4 mm in size. No left renal calculi are identified. There is no hydronephrosis noted bilaterally per radiology report. Renal ultrasound 05/30 9 x 12 mm nonobstructing right renal stone otherwise unremarkable per radiology report. In office urinalysis results reviewed with the patient today. We did discuss further treatment options and risks and benefits of these treatment options. She denies urinary urgency, urinary frequency, incontinence, nocturia, hematuria, dysuria, foul smelling urine, changes to urinary stream, flank pain, fever, and or chills. She is happy with her current voiding parameters. She does have a history of right-sided ESWL 02/[address] Altman. Discussed and stressed the importance of drinking plenty of water daily. Plan was for metabolic workup with 24 hour urine collection however patient reports she has been unable to collect her urine due to her busy schedule and does not wish to at this time. We discussed correlation of metabolic workup with nephrolithiasis. She otherwise denies any bothersome issues or concerns at this time. [facility] Medical History IBS (irritable bowel syndrome) Lymphoma Diverticulitis Diverticulosis Hypothyroid Tubal ligation evaluation GERD (gastroesophageal reflux disease) Aberrant thyroid gland Asthma B12 deficiency anemia Pulmonary embolism Primary osteoarthritis of knees, bilateral Breast cancer, left breast Surgical History History of endoscopy Hx of nasal septoplasty Hx of lithotripsy History of lumpectomy of left breast Hx of cholecystectomy History of esophagogastroduodenoscopy (EGD) H/O colonoscopy Hx of lymph node biopsy History of bone marrow biopsy History of removal of Port-a-Cath History of vocal cord polypectomy Hx of rotator cuff surgery Hx of carpal tunnel repair Family History Mother Family hx of colon cancer Arthritis Father Hx of kidney disease Brother History of throat cancer Daughter Arthritis Sister Arthritis Social History Household Members: None Housing: Condominium Are you a primary medicare specialist to a significant other at home: No Do you presently have visiting nurse or other home services: Yes (ADMINISTRATIVE SUPPORT CLERK) Alcohol intake: never Patient Tobacco Use Status: Former Tobacco user Second Hand Smoke Exposure: No Advance Directives Date on File: 05/21/25 service: No Current occupational status: disabled Sexual orientation: Straight/Heterosexual Gender identity: Female Female Reproductive History Menstrual Age of Menarche: 9 Review of Systems Const Reports as per [facility] Eyes Reports no additional complaints ENT Reports no additional complaints Card Reports as per [facility] Resp Reports as per [facility] GI Reports as per HPI Reports as per [facility] Musc Reports as per [facility] Neuro Reports as per [facility] Endo Reports as per HPI Physical Exam Const General: cooperative, healthy appearing, comfortable, no acute distress, well developed, alert and awake Orientation/consciousness: patient oriented x3 Limitations: no limitations HEENT Head: Yes normal to inspection, Yes normocephalic and Yes atraumatic Ears: hearing grossly normal bilaterally Eyes General: appearance normal, both eyes and all related structures Neck Neck: Yes normal visual inspection and Yes trachea midline Chest Chest palpation & inspection: normal inspection of the chest Resp Effort & Inspection: normal respiratory effort and able to speak in complete sentences Cardio Rate: regular rate GI Inspection: Yes normal to inspection General: Yes no CVA tenderness Back/Spine/Pelvis Back: no CVA tenderness Skin General skin exam: no rashes or lesions noted Neuro General: patient oriented x3 Extrem General: Yes normal to inspection Psych Appearance: grossly normal and well kempt Mental Status: mental status grossly normal Speech and movement: Normal speech and movement present and Clear speech present Affect: normal affect Attitude: cooperative Thought process: Normal thought process present Thought content: Normal thought content present Insight: Fair insight present (Psych) Judgement: Fair judgement present (Psych) Results AMB Urinalysis, Automated UA Leukoctes 0 Aditi/uL Last Edit by SANDRA Jackson on 06/09/25 10:24 UA Nitrite Negative Last Edit by SANDRA Jackson on 06/09/25 10:24 UA Urobilinogen 0.2 mg/dL Last Edit by SANDRA Jackson on 06/09/25 10:24 UA Protein 0 mg/dL Last Edit by SANDRA Jackson on 06/09/25 10:24 UA pH 6.0 Last Edit by SANDRA Jackson on 06/09/25 10:24 UA Blood 0 Kalpesh/uL Last Edit by SANDRA Jackson on 06/09/25 10:24 UA Specific Everly 1.005 Last Edit by SANDRA Jackson on 06/09/25 10:24 UA Ketone Negative Last Edit by SANDRA Jackson on 06/09/25 10:24 UA Bilirubin 0 mg/dL Last Edit by SANDRA Jackson on 06/09/25 10:24 UA Glucose 0 mg/dL Last Edit by SANDRA Jackson on 06/09/25 10:24 Results Reviewed Results Reviewed: Laboratory Last Values Urine pH (Auto) 6.0 06/09/25 10:20 Specific Everly (Auto) 1.005 06/09/25 10:20 Urine Protein (Auto) 0 mg/dL 06/09/25 10:20 Glucose (UA)(Auto) 0 mg/dL 06/09/25 10:20 Urine Ketones (Auto) Negative 06/09/25 10:20 Urine Blood (Auto) 0 Kalpesh/uL 06/09/25 10:20 Urine Nitrite (Auto) Negative 06/09/25 10:20 Urine Bilirubin (Auto) 0 mg/dL 06/09/25 10:20 Urine Urobilinogen (Auto) 0.2 mg/dL 06/09/25 10:20 Leukocyte Esterase (Auto) 0 Aditi/uL 06/09/25 10:20 Date of Service: 05/21/25 Procedure(s): CT abdomen pelvis wo IV con FINDINGS: LOWER CHEST: The visualized lung bases are clear. There is no pleural effusion. CARDIOVASCULATURE: The heart is normal in size. There is no pericardial effusion. LIVER: The liver again demonstrates a nodular contour with hypertrophy of the caudate and left lobes, suggestive of cirrhosis. The liver has an otherwise unremarkable unenhanced appearance. GALLBLADDER / BILE DUCTS: The gallbladder is surgically absent. There is no intra or extrahepatic biliary ductal dilatation. SPLEEN: The spleen is normal in size and has an unremarkable unenhanced appearance. PANCREAS: The pancreas has an unremarkable unenhanced appearance. ADRENAL GLANDS: Unremarkable. KIDNEYS/RETROPERITONEUM: There are nonobstructing right renal calculi measuring up to 4 mm in size. No left renal calculi are identified. There is no hydronephrosis. LYMPH NODES: No retroperitoneal lymphadenopathy is identified in the abdomen or pelvis. VASCULATURE: The abdominal aorta is normal in caliber. MESENTERY/PERITONEUM: No free fluid. No masses. There is no free intraperitoneal gas. Again seen is mild infiltration of the fat of the root of the mesentery which is a nonspecific finding. STOMACH: There is a small hiatal hernia. The remainder of the stomach is collapsed. SMALL BOWEL: The small bowel is normal in caliber. COLON: There is diverticulosis of the descending and sigmoid colon. There is mild pericolonic inflammatory stranding about the sigmoid colon, consistent with diverticulitis. There is no adjacent extraluminal gas or loculated fluid collection. APPENDIX: Normal. URINARY BLADDER/PELVIC ORGANS: The urinary bladder is collapsed, limiting evaluation. The uterus has an unremarkable unenhanced appearance. BONES / SOFT TISSUES: No suspicious bony or soft tissue abnormalities. CT/CT abdomen pelvis wo IV con IMPRESSION: 1. Diverticulitis of the sigmoid colon as described. No extraluminal gas or loculated fluid collection. 2. Findings suggestive of hepatic cirrhosis. 3. Small hiatal hernia. Right nephrolithiasis without evidence of ureteral obstruction. Date of Service: 06/01/25 Procedure(s): US renal BI Findings: Right kidney 10.0 cm length. 9 x 12 mm nonobstructing stone. No other significant abnormality. Left kidney 10.9 cm length. No significant focal abnormality. No bilateral hydronephrosis. Normal bilateral renal echogenicity. Impression: 9 x 12 mm nonobstructing right renal stone Otherwise unremarkable Assessment & Plan Assessment & Plan (1) Kidney stone: Code(s): N20.0 - Calculus of kidney Category: Medical Plan In office urinalysis results reviewed with the patient today; as noted above. We did discussed variability of stone sizing with CT verses renal ultrasound. She currently denies any bothersome urinary issues or concerns. She reports be happy with current voiding parameters. Will continue with surveillance monitoring. We did discussed metabolic workup to include Litholink and labs. Discussed, educated, and stressed the importance of adequate hydration relation to nephrolithiasis as well as overall health and well-being. Continue adding 1 oz of lemon juice to water daily. Continue to follow-up with PCP and GI regarding ongoing issues with diverticulitis/diverticulosis. All questions were answered. Will obtain renal ultrasound and KUB in 6 months. Follow-up in 6 months with imaging; or sooner with any issues, concerns, and or questions. Orders: Orders AMB Urinalysis Automated Today Z13.9 - Encounter for screening, unspecified US renal BI 6 Months N20.0 - Calculus of kidney XR KUB 6 Months N20.0 - Calculus of kidney Patient Instructions: The patient had an opportunity to ask questions regarding the treatment plan. All questions were answered. Physical exam, labs, and imaging were discussed and reviewed in detail. As well as risks, benefits, and discussion of treatment choices. No major barriers to understanding were identified. The patient expressed understanding and agreement with the above treatment plan. The patient was made aware they should contact our office by phone for worsening of their current condition, the appearance of new symptoms, or with any questions or concerns. Compliance is encouraged with any medications and follow up testing that is ordered. It is a privilege to be allowed the opportunity to participate in? your urological care.? Again, if you have any questions or concerns If you have any questions or concerns please do not hesitate to contact me. The office is [phone]. This note is constructed using voice recognition software. While every effort has been made to ensure accuracy whale trainer errors may have been included. Yours sincerely, KATT Lomax Coding Level of Care Code Est Pt Level 3 (74315) Complex EM visit Add On G2211 Diagnoses Kidney stone N20.0
--- OUTSIDE RECORDS SUMMARY | 2025-06-09 11:41 | XMS_ITS | Encounter Summary ---
Author Organization [employer] Address [address] [facility] 7t [place] [address] Care Team Providers Care Public Address System Operator Name Role Phone Sandy Rubi MD Primary Care Provider Reason for Visit * Reason Onset Date Comments Referral 01/10/2023 Encounter Details Date Type Department Care Team ([facility] st Contact Info) Description 01/10/2023 Telephone [facility] MED[facility]INE [address] [place], [place] [phone] Sandy Rubi MD [address] [place] [address] Referral Social History Tobacco Use Types Packs/Day [...] Pt would like to be sent to [facility] located at [address]. Had a previous referral but she was referred back in 2019. Fax #: [phone] Any questions please contact pt at [phone] documented in this encounter Plan of Treatment Not on file documented as of this encounter Visit Diagnoses Not on filedocumented in this encounter Additional Health Concerns Assessment Noted Time PHQ-9 Depression Total Score: 0 12/20/19 23 1:06 PM EDT documented as of this encounter Care Teams Public Address System Operator Relationship Specialty Start Date End Date Sandy Rubi MD [address] [place] [address] PCP - General Family Medicine 08/06/18 documented as of this encounter
--- OUTSIDE RECORDS SUMMARY | 2025-06-09 11:41 | XMS_ITS | Encounter Summary ---
Author Organization [employer] Address [address] [facility] 7t [place] [address] Care Team Providers Care Manager Contract Name Role Phone Sandy Rubi MD Primary Care Provider Encounter Details Date Type Department Care Team ([facility] st Contact Info) Description 05/25/2023 Orders Only [facility] MED[facility]INE [address] [place] [address] Sandy Rubi MD [address] [place] [address] Social History Tobacco Use Types Packs/Day Years [...] documented as of this encounter Care Teams Manager Contract Relationship Specialty Start Date End Date Sandy Rubi MD [address] [place] [address] PCP - General Family Medicine 08/06/18 documented as of this encounter
--- OUTSIDE RECORDS SUMMARY | 2025-06-09 11:41 | XMS_ITS | Encounter Summary ---
Author Organization [employer] Address [address] [facility] 7t [place] [address] Care Team Providers Care Head Of Marketing Name Role Phone Sandy Rubi MD Primary Care Provider [phone] Encounter Details Date Type Department Care Team (Late st Contact Info) Description 01/10/2023 Orders Only [facility] [address] [place] [address] Sandy Rubi MD [address] [place] [address] Right foot pain (Primary Dx); Primary osteoarthritis [...] documented as of this encounter Care Teams Head Of Marketing Relationship Specialty Start Date End Date Sandy Rubi MD [address] [place] [id number] PCP - General Family Medicine 08/06/18 documented as of this encounter
--- OUTSIDE RECORDS SUMMARY | 2025-06-09 11:41 | XMS_ITS | Patient Health Record ---
Author Organization [facility] Address [address] [place] [id number] Care Team Providers Care Rn Lpn Lvn Name Role Phone Elicia PADILLA, Sandy Primary Care Provider Hugo Cain Unavailable [phone] Allergies Allergen (clinical drug ingredient) Drug/Non Drug [...] W/U Status Risk Notes Problem Epigastric pain (08264808) Epigastric abdominal pain (R10.13) Active confirmed Problem Diverticulitis of colon (939733292) Diverticulitis of large intestine without perforation or abscess without bleeding (K57.32) Active confirmed Problem Screening for malignant neoplasm of colon (304909125) Encounter for screening for malignant neoplasm of colon (Z12.11) Active confirmed Problem Screening for malignant neoplasm of rectum (953696126) Encounter for screening for malignant neoplasm of rectum (Z12.12) Active confirmed Problem Gastroesophageal reflux disease without esophagitis (622261543) Gastroesophageal reflux disease without esophagitis (K21.9) Active confirmed Problem Fatty liver (205924429) Fatty liver (K76.0) Active confirmed Problem Left upper quadrant pain (678799372) Abdominal pain, left upper quadrant (R10.12) Active confirmed Problem Gastritis (0375090) Gastritis (K29.70) Active c onfirmed Problem History of adenomatous polyp of colon (470688137) Hx of adenomatous colonic polyps (Z86.010) Active confirmed Problem Esophageal reflux finding (532831900) Gastroesophageal reflux (K21.9) Active confirmed Problem 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) Cirrhosis of liver without ascites, 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) Active confirmed Problem Irritable bowel syndrome characterized by constipation (150111778) Irritable bowel syndrome with constipation (K58.1) Active confirmed Problem Nonspecific mesenteric adenitis (752044860) Mesenteric adenitis (I88.0) Active confirmed Problem Diverticulosis of colon (281133767) Diverticulosis of colon (K57.30) Active confirmed Problem Chest pain (27462731) Xiphoid pain (R07.89) Active confirmed Vital Signs Blood pressure diastolic 11 mm Hg 11/18/2024 Height 64 in 11/18/2024 Blood pressure systolic 111 mm Hg 11/18/2024 Weight 166 lbs 11/18/2024 BMI 28.49 kg/m2 11/18/2024 Encounters Encounter Location Date Provider Diagnosis [facility] [address] [place] [id number] 11/18/2024 Hugo Jeong Gastroesophageal ref lux disease without esophagitis K21.9 ; Irritable bowel syndrome with constipation K58.1 ; Hx of adenomatous colonic polyps Z86.010 ; Abdominal pain, left upper quadrant R10.12 and Cirrhosis of liver without ascites, unspecified hepatic cirrhosis type K74.60 [facility] [address] [place] [phone] 04/21/2025 Hugo Jeong Assessments Encounter Date Diagnosis [...] FERRITIN 04/21/2021 PROTHROMBIN TIME (PT, INR) 04/21/2021 [id number] (A1A) 04/21/2021 ALPHA-FETOPROTEIN,TUMOR MARKER 4 FLUOR. ANTINUCLEAR [...] Start Date Coverage End Date MEDICARE OF [place] [address] ZAHEER [place]ARDOZO [address] [id number] JIM CARRION Self - patient is the insured MEDICAID OF [facility] [address] [place] [address] [id number] JIM CARRION Self - patient is the insured Medical (General) History Medical History History ICD Code Left-sided breast bunxrymoe-xf-qwvr-foll owed by Dr. Polanco Hypothyroidism Asthma Kidney stones Pernicious anemia Arthritis Denies ME,DM,CVA,renal disease Colonoscopy in April 2 revealed a small tubular adenoma that was removed, as well as mild diverticulosis and small internal hemorrhoids Upper endoscopy in April 2012 revealed only a small hiatal hernia, but no evidence of any H. pylori, esophagitis, nor ulcer disease. Urinary incontinence Pulmonary embolus--on Coumadin--but fini shed in 08/2016 Denies ME,DM,CVA,renal disease Colonoscopy 01/2017--1 small tubular jabier sarthak [...]
--- OUTSIDE RECORDS SUMMARY | 2025-06-09 11:41 | XMS_ITS | Encounter Summary ---
Author Organization [employer] Address [address] [place] [address] 7t [place] [address] Care Team Providers Care Paper Plate Machine Tender Name Role Phone Sandy Rubi MD Primary Care Provider [phone] Reason for Referral * Imaging (Routine) - Closed Specialty Diagnoses / Procedures Referred By Contac t Referred To Contact Radiology Diagnoses Osteopenia of neck of femur, unspecified laterality Vitamin D deficiency Other specified disorders of bone density and structure, other site Procedures BD DEXA Axial Sandy Rubi MD [address] [place] [address] Phone: tel: fax: [address] Phone: tel: fax: Referral ID Status Reason Start Date Expiration Date Visits Re quested Visits Authorized [id number] Closed 05/12/2025 05/12/2026 1 1 Encounter Details Date Type Department Care Team (Late st Contact Info) Description 05/12/2025 Orders Only [facility] MEDICINE [address] [place] [phone] Sandy Rubi MD [address] [place] [phone] Osteopenia of neck of femur, unspecified laterality [...] documented as of this encounter Care Teams Paper Plate Machine Tender Relationship Specialty Start Date End Date Sandy Rubi MD [address] [place] [address] PCP - General Family Medicine 08/06/18 documented as of this encounter
--- OUTSIDE RECORDS SUMMARY | 2025-06-09 11:41 | XMS_ITS | Encounter Summary ---
Author Organization [employer] Address [address] [facility] [address] [place] [address] Care Team Providers Care Sr. Social Media & Mobile Manager Name Role Phone Sandy Rubi MD Primary Care Provider [phone] Encounter Details Date Type Department Care Team ([facility] st Contact Info) Description 12/10/2023 Orders Only [facility] [address] [place] [address] Sandy Rubi MD [address] [place] [address] Social History Tobacco Use Types Packs/Day Years [...] documented as of this encounter Care Teams Sr. Social Media & Mobile Manager Relationship Specialty Start Date End Date Sandy Rubi MD [address] [place] [phone] PCP - General Family Medicine 08/06/18 documented as of this encounter
--- OUTSIDE RECORDS SUMMARY | 2025-06-09 11:41 | XMS_ITS | Clinical Summary ---
Author Organization [employer] Address [address] [place] [address] 7t [place] [address] Care Team Providers Care Sterilization Tech Name Role Phone Shanel Rubi MD Primary Care Provider [phone] Allergies Active Allergy Reactions Criticality Noted Date [...] knee - Following with Dr. Mitchell at [facility] - s/p right knee partial medial and [...] knee - Following with Dr. Mitchell at [facility] - s/p right knee partial medial and [...] posterior horn of the medial meniscus. 2. [id number]-wlksobvd patellofemoral arthrosis. 3. Mild medial compartment arthrosis. [...] posterior horn of the medial meniscus. 2. [id number] patellofemoral arthrosis. 3. Mild medial compartment arthrosis. [...] 02/27/2023 Overview (02/27/2023): - already evaluated by claims analyst, last seen in 2019 - no rheumatological abnormality, pt has hypothyroidism - consider repeating lab Assessment & Plan (05/15/2023 5:17 PM EDT): - evaluated by claims analyst and was given a reassurance that she does not have rheumatological problem Right foot pain 12/23/2022 Assessment & Plan (01/31/2025 8:39 AM EDT): -Mar 2022 X-ray showed OA -Seen by grades 1 [employer] 6 visiting teacher and Dx plantar fasciitis -Continue ice, stretching exercise, and APAP prn -Continue wearing comfortable shoes. 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 Last EKG in 2021 in [facility] shows MD 202 ms - review medications - will consider Holter monitor her palpitation becomes more frequent Assessment & Plan (05/15/2023 5:06 PM EDT): - most recent EKG in 2021 in [facility] shows MD 202 ms - review medications - asymptomatic, [...] ESWL February 2023 Right ESWL -Followed by [facility] Urology provider, last seen on 06/12/24 -Most [...] ESWL February 2023 Right ESWL -Followed by [facility] Urology provider, last seen on 06/12/24 -Most [...] ESWL February 2023 Right ESWL -Followed by [facility] Urology provider, last seen on 06/12/24 -Most [...] ESWL February 2023 Right ESWL -Followed by [facility] Urology provider, last seen on 02/23/23 -Most [...] ESWL February 2023 Right ESWL -Followed by [facility] Urology provider, last seen on 02/23/23 -Most [...] ECSWL May 2019 Right ESWL -Followed by [facility] Urology provider, last seen on 10/17/22 -Most [...] - continue vitamin B12 IM monthly at [facility] Heme / Onc - continue folic acid supplement Assessment & Plan (01/31/2025 8:37 AM EDT): - following with Dr. Polanco - continue vitamin B12 IM monthly at [facility] Heme / Onc - continue folic acid supplement Assessment & Plan (09/29/2024 10:57 AM EST): - following with Dr. Polanco - continue vitamin B12 IM monthly at [facility] Heme / Onc - continue folic acid supplement Assessment & Plan (11/07/2023 5:26 AM EDT): - following with Dr. Polanco - continue vitamin B12 IM monthly at [facility] Heme / Onc - continue folic acid supplement Assessment & Plan (11/07/2023 5:25 AM EDT): >>ASSESSMENT AND PLAN FOR PERNICIOUS ANEMIA WRITTEN ON 12/18/2022 6:36 PM BY SHANEL RUBI MD - following with Dr. Polanco - vahid vitamin B12 IM monthly at [facility] Heme / Onc - continue folic acid supplement Assessment & Plan (11/07/2023 5:25 AM EDT): >>ASSESSMENT AND PLAN FOR PERNICIOUS ANEMIA WRITTEN ON 05/15/2023 5:17 PM BY SHANEL RUBI MD - following with Dr. Polanco - vahid vitamin B12 IM monthly at [facility] Heme / Onc - continue folic acid supplement Assessment & Plan (11/07/2023 5:25 AM EDT): >>ASSESSMENT AND PLAN FOR PERNICIOUS ANEMIA WRITTEN ON 08/11/2023 6:09 AM BY SHANEL RUBI MD - following with Dr. Polanco - continue vitamin B12 IM monthly at [facility] Heme / Onc - continue folic acid [...] Encounters Date Type Department Care Team Description 06/01/2025 Orders Only [facility] External Provider, [facility] 05/26/[address] [facility] [address] [place] [phone] Shanel Rubi MD ER Follow-up 05/21/2025 Orders Only GENERIC EXTERNAL DATA DEPARTMENT Provider, Generic External Data 05/12/2025 Orders Only [address] [address] Shanel Rubi MD Osteopenia of neck of femur, unspecified laterality (Primary Dx); Vitamin D deficiency; Other specified disorders of bone density and structure, other site 05/12/2025 Orders Only [address] [address] Shanel Rubi MD Acquired hypothyroidism (Primary Dx); Osteopenia of neck of femur, unspecified laterality; Hyperparathyroidism, unspecified ([facility]/HCC) 04/14/2025 1:30 PM EDT Office Visit [address] [address] Shanel Rubi MD Acquired hypothyroidism (Primary Dx); [...] intra-abdominal lymph nodes, unspecified B-cell lymphoma type ([facility]) 04/14/2025 Travel 04/13/2025 Travel 04/13/[address] [address] Shanel Rubi MD chart prep from Last [...] Procedure Name Priority Date/Time Associated Diagnosis Comments US RENAL COMPLETE Routine 06/01/2025 10: [address] ABDOMEN PELVIS WO CONTRAST Routine 05/21/2025 [...] Recently Relevant to Health Maintenance Results * US Renal Complete (06/01/2025 10:28 PM EDT) Anatomical Region Laterality Modality Kidney Ultrasound 06/01/2025 10:2 8 PM EDT Narrative 06/01/2025 10:30 PM EDT [address] [address] Ultrasound Report Signed Patient: Anisha Esposito MR#: [id number] : 1950 Acct:[id number] Age/Sex: 74 / F ADM Date: 06/01/25 Loc: HO.US Attending Dr: Radha BOLIVAR Ordering Physician: Radha Han Date of Service: 06/01/25 Procedure(s): US renal BI Accession Number(s): [id number] cc: Radha Han; Shanel Rubi MD Reason for Exam: N20.0 - Calculus of kidney CLINICAL HISTORY: N20.0 - Calculus of kidney US renal Comparison: 12/05/2023 Findings: Right kidney 10.0 cm length. 9 x 12 mm nonobstructing stone. No other significant abnormality. Left kidney 10.9 cm length. No significant focal abnormality. No bilateral hydronephrosis. Normal bilateral renal echogenicity. Impression: 9 x 12 mm nonobstructing right renal stone Otherwise unremarkable This document has been electronically signed by: Scar Christiansen MD on 06/01/2025 22:28:55 Dictated By: Scar Christiansen MD Signed By: <Electronically signed by Scar Christiansen MD in OV> 06/01/252229 DD/ 27 TD/TT: 06/01/252227 Advertising Display Rotator: Procedure Note Donotuseinterpreter, Image - 06/01/[address] [address] Ultrasound Report Signed Patient: Anisha Esposito EMR#: [id number] : 1950Acct:[id number] Age/Sex: 74 / FADM Date: 06/01/25 Loc: HO.US Attending Dr: Radha BOLIVAR Ordering Physician: Radha Han Date of Service: 06/01/25 Procedure(s): US renal BI Accession Number(s): [id number] cc: Radha Han; Shanel Rubi MD Reason for Exam: N20.0 - Calculus of kidney CLINICAL HISTORY: N20.0 - Calculus of kidney US renal Comparison: 12/05/2023 Findings: Right kidney 10.0 cm length. 9 x 12 mm nonobstructing stone. No other significant abnormality. Left kidney 10.9 cm length. No significant focal abnormality. No bilateral hydronephrosis. Normal bilateral renal echogenicity. Impression: 9 x 12 mm nonobstructing right renal stone Otherwise unremarkable This document has been electronically signed by: Scar Christiansen MD on 06/01/2025 22:28:55 Dictated By: Scar Christiansen MD Signed By: <Electronically signed by Scar Christiansen MD in OV> 06/01/252229 DD/ 27 TD/TT: 06/01/252227 Advertising Display Rotator: us [facility] External Provider IMG US PROCEDURES Final Result * CT Abdomen Pelvis w/o Contrast (05/21/2025 12:46 PM EDT) Anatomical Region Laterality Modality Body, Pelvis, Abdomen Computed T omography 05/21/2025 12:4 6 PM EDT Narrative 05/21/2025 1:27 PM EDT [place] [address] CT Scan Report Signed Patient: Anisha Esposito MR#: [id number] : 1950 Acct:[id number] Age/Sex: 74 / F ADM Date: 05/21/25 Loc: HO.ED Attending Dr: Ordering Physician: Edenilson Lane Date of Service: 05/21/25 Procedure(s): CT abdomen pelvis wo IV con Accession Number(s): [id number] cc: Edenilson Lane; Shanel Rubi MD Report Number: [id number]: Total DLP = 478.00 mGy-cm Reason for [...] 05/21/25 1324 DD/ 1246 TD/TT: 05/21/25 1317 Advertising Display Rotator: Procedure Note Donotuseinterpreter, Image - 05/21/[address] [place] [address] [address] Scan Report Signed Patient: Anisha Esposito EMR#: [id number] : 1950Acct:[id number] Age/Sex: 74 / FADM Date: 05/21/25 Loc: .ED Attending Dr: Ordering Physician: Edenilson Lane Date of Service: 05/21/25 Procedure(s): CT abdomen pelvis wo IV con Accession Number(s): [id number] cc: Edenilson Lane; Shanel Rubi MD Report Number: [id number]: Total DLP = 478.00 mGy-cm Reason for [...] 05/21/25 1324 DD/ 1246 TD/TT: 05/21/25 1317 Advertising Display Rotator: [facility] External Provider IMG CT PROCEDURES Edited Result - Final * (ABNORMAL) Urinalysis, Complete, with Reflex to Culture (05/21/2025 11:03 AM EDT) Color Urine Yellow [facility] Appearance Urine Clear [facility] PH 6.5 5.0 - 9.0 [facility] Glucose Urine UA Negative Negative mg/dL [facility] Urine Blood Negative Negative [facility] Specific [place] - Urine <=1.005 1.005 - 1.025 [facility] Urine Protein Negative Neg-Trace mg/dL [facility] Urine Ketones Negative Negative mg/dL [facility] Nitrite Urine Negative Negative [facility] Leukocyte Esterase Urine Trace(A) Negative [facility] RBC Urine 0-2 0 - 2 /HPF [facility] Urine WBC 0-5 0 - 5 /HPF [facility] Urine Squamous Epithelial Cell 0-2 0 - 2 /HPF [facility] Urine Bacteria None Seen None Seen [facility] Hyaline Casts, Urine 0-2 0 - 2 /LPF [facility] 05/21/2025 11:0 3 AM EDT 05/21/2025 11:06 AM EDT Narrative [facility] - 05/21/2025 11:16 AM EDT [id number], Clean Catch Generic External Data Provider LAB URINE ORDERAB LES Final Result [facility] [address] [place] [phone] * (ABNORMAL) CBC auto differential (05/21/2025 11:03 AM EDT) White Blood Count 6.7 4.8 - 10.8 X10*3/uL [facility] Red Blood Count 3.81(L) 4.20 - 5.50 X10*6/uL [facility] Hemoglobin 10.7(L) 12.0 - 16.0 g/dl [facility] Hematocrit 33.3(L) 37.0 - 47.0 % [facility] Mean Corpuscular Volume 87.4 80.0 - 98.0 fL [facility] Mean Corpuscular Hemoglobin 28.1 27.0 - 33.0 pg [facility] Mean Corpuscular HGB Conc 32.1 31.0 - 35.0 g/dl [facility] Red Cell Distribution Width 13.9 11.0 - 16.0 % [facility] Platelet Count 163 160 - 400 X10*3/uL [facility] Mean Platelet Volume 11.3 9.4 - 12.3 fL [facility] Neutrophils Percent Auto 66.0 45 - 73 % [facility] Imm Gran Pct Auto 0.3 0.0 - 0.4 % [facility] Lymphocytes Percent Auto 20.2 20 - 40 % [facility] Monocytes Percent Auto 12.6(H) 2 - 11 % [facility] Eosinophils Percent Auto 0.6 0 - 4 % [facility] Basophils Percent Auto 0.3 0 - 2 % [facility] NRBC Pct Auto 0.0 0.0 - 0.2 /100WBC [facility] Neutrophils Absolute Auto 4.4 2.0 - 8.3 x10*3/uL [facility] Imm Gran Abs Auto 0.02 0.00 - 0.03 X10*3/uL [facility] Lymphocytes Absolute Auto 1.4 1.2 - 4.9 X10*3/uL [facility] Monocytes Absolute Auto 0.8 0.1 - 1.2 X10*3/uL [facility] Eosinophils Absolute Auto 0.0 0.0 - 0.4 X10*3/uL [facility] Basophils Absolute Auto 0.0 0.0 - 0.2 X10*3/uL [facility] NRBC Abs Auto 0.000 0.0 - 0.012 X10*3/uL [facility] 05/21/2025 11:0 3 AM EDT 05/21/2025 11:06 AM EDT Generic External Data Provider LAB BLOOD ORDERAB LES Final Result Performing Organization Address City/[facility]/ZIP Co de Phone Number [facility] [address] [place] [phone] * Lipase (05/21/2025 11:03 AM EDT) Lipase 38 8 - 78 U/L [facility] 05/21/2025 11:0 3 AM EDT 05/21/2025 11:06 AM EDT Generic External Data Provider LAB BLOOD ORDERAB LES Final Result Performing Organization Address [facility]/ZIP Co de Phone Number [facility] [address] [place] [phone] * Comprehensive Metabolic Panel (05/21/2025 11:03 AM EDT) Sodium 138 135 - 145 mmol/L [facility] Potassium 3.5 3.3 - 5.1 mmol/L [facility] Chloride 106 96 - 108 mmol/L [facility] Carbon Dioxide 22 22 - 29 mmol/L [facility] Anion Gap 14 12 - 20 [facility] Urea Nitrogen (BUN) 12 9 - 16 mg/dL [facility] Creatinine, Serum 0.66 0.5 - 1.4 mg/dL [facility] Creatinine Clr Calc Pharmacy 69.8 [facility] Comment:Provided height and weight: 160.02 cm,71.5 kg.eGFR (calculated from the MDRD study equation) and eCrCl(calculated from the Cockcroft-Gault equation) are based ondifferent parameters and may not yield comparable results.If eCrCl result is absurd, please check patient'sheight/weight. Estimated Glomerular Filt Rate >60 [facility] Comment:Chronic Kidney Disea se: Estimated GFR < 60 mL/min/1.28s5Mgmkbf Kidney Disease: Estimated GFR < 15 mL/min/1.73m2 Glucose 94 60 - 115 mg/dL [facility] Calcium 9.9 8.4 - 10.2 mg/dL [facility] Bilirubin, Total 0.6 0.0 - 1.0 mg/dL [facility] Aspartate Amino Transferase 23 5 - 31 U/L [facility] Alanine Aminotransferase 16 0 - 31 U/L [facility] Total Protein 8.0 6.5 - 8.0 g/dL [facility] Albumin Level 4.5 3.5 - 5.0 g/dL [facility] Alkaline Phosphatase 107 39 - 117 U/L [facility] 05/21/2025 11:0 3 AM EDT 05/21/2025 11:06 AM EDT us Generic External Data Provider LAB BLOOD ORDERAB LES Final Result [facility] [address] [place] [phone] * ECG 12 lead (04/14/2025 1:42 PM EDT) Narrative Shanel Rubi MD - 04/14/2025 1:42 PM EDT Rate 68, sinus rhythm, borderline MD, narrow QRS, normal QTc, normal axis. No acute ischmec ST-T changes. q wave on V2. us Shanel Rubi MD ECG ORDERABLES Final Result * Lipid Panel with Reflex to Direct LDL (09/30/2024 8:22 AM EST) Triglycerides 38 <150 mg/dL [facility] Comment:Desirable Triglyceri de: less than 150 mg/dLBorderline High Triglyceride 150-199 mg/dLHigh Triglyceride: 200-499 mg/dLVery High Triglyceride: greater than or equal to 5OO mg/dL Cholesterol 123 <200 mg/dL [facility] Comment:Desirable Cholestero l: less than 200 mg/dLBorderline High Cholesterol: 200-239 mg/dLHigh Cholesterol: greater than 239 mg/dL LDL Cholesterol Calculated 69 <100 mg/dL [facility] Comment:Desirable LDL: less than 100 mg/dLNear Optimal/Above Optimal LDL: 110- 129 mg/dLBorderline High LDL: 130-159 mg/dLHigh LDL: 160-189 mg/dLVery High LDL: greater than or equal to 190 mg/dL HDL Cholesterol 47 >40 mg/dL [facility] Comment:Desirable HDL: great er than 40 mg/dL Note: This HDL assay may give artificially low results in patients with liver disease. Blood 09/30/2024 8:22 AM EST 09/30/2024 11:35 AM EST Shanel Rubi MD LAB BLOOD ORDERABLES Final Resul t [facility] [address] [place] [phone] * Hm Colonoscopy (03/10/2023) Colonoscopy Normal Normal us Hugo Jeong MD HEALTH MAINTENANCE Final Result [...] MD HISTORICAL/NON ORDERABLE LABS Fi nal Result [facility] [address] from Last 3 Months or Most Recently Relevant to Health Maintenance Insurance [facility] STANDARD MEDICARE DENTAL-[facility] MEDICAID STAND ADULT Care Teams Sterilization Tech Relationship Specialty Start Date End Date Shanel Rubi MD [address] [place] [address] PCP - General Family Medicine 08/06/18
== END 2025-06-09 10:54 | disposition home or self-care (01) ==
LOC: HO.HUSH 10:01
PROVIDERS: PCP Family Medicine; Visit Provider Nurse Practitioner Family
DX: N20.0 Calculus of kidney (principal); Z13.9 Encounter for screening, unspecified
CPT/HCPCS: 99213; G2211

== ENCOUNTER → 2025-06-09 10:01 | Outpatient (BNVA) | payer MEDICARE, MEDICAID, SELFPAY | PROVIDERS: PCP Family Medicine; Visit Provider Nurse Practitioner Family | DX: N20.0 Calculus of kidney (principal) | CPT/HCPCS: 81003; 99212 ==

== ENCOUNTER 2025-07-29 15:14 | Outpatient (REF) | payer MEDICARE, MEDICAID, SELFPAY ==
--- OUTSIDE RECORDS SUMMARY | 2025-07-28 09:45 | XMS_ITS | Encounter Summary ---
Author Organization [facility] Address [address] [place] [address] Care Team Providers Care Marble Polisher Name Role Phone Sandy Rubi MD Primary Care Provider [phone] Reason for Referral * Consultation (Routine) - Authorized Specialty Diagnoses / Procedures Referred By Akira ram Referred To Contact Vascular Surgery Diagnoses Peripheral venous insufficiency César Barbosa DPM [address] [address] Phone: tel: fax: Jorje Plata MD [address] [address] Phone: tel: fax: Referral ID Status Reason Start Date Expiration Date Visits Requested Visits Authorized [id number] Authorized Specialty Services Required 07/28/2026 1 1 Reason for Visit * Reason Comments Pain * Consultation (Routine) - Closed Specialty Diagnoses / Procedures Referred By Akira ram Referred To Contact Podiatry / Orthopaedic Surgery Diagnoses Pain in right foot Plantar fascial fibromatosis Sandy Rubi MD [address] [place] [address] Phone: tel: fax: César Barbosa DPM [address] [address] Phone: tel: fax: Referral ID Status Reason Start Date Expiration Date V isits Requested Visits Authorized [id number] Closed Specialty Services Required 02/10/2025 02/10/2026 1 1 Encounter Details Date Type Department Care Team (Late st Contact Info) Description 07/28/2025 9:45 AM EST Office Visit Orthopedic Surgery - [place] [address] [phone] César Barbosa DPM [address] [address] Neuritis (Primary Dx); Plantar fascial fibromatosis; Peripheral venous insufficiency; Bilateral femoral artery stenosis (CMS/HCC V24); Corns and callosities; Hammer toe of left foot; Metatarsalgia of left foot Social History Tobacco Use Types Packs/Day Years Used Date Smoking Tobacco: Never Assessed Comments Unknown Sex and Gender Information Value Date Recorded Sex Assigned at Not on file Legal Sex Female 7:40 AM EST Gender Identity Not on file Sexual Orientation Not on file documented as of this encounter Ordered Prescriptions Prescription Sig Dispense Quantity Refills Last Filled Start Date End Date alpha lipoic acid 600 mg capsule Take 1 capsule by mouth 1 (one) time each day. 30 capsule 2 07/28/2025 6 documented in this encounter Progress Notes * César Barbosa DPM - 07/28/2025 9:45 AM EST Last PCP visit:Referring MD: Sandy Rubi MD 04/14/2025 Ludy Esposito is a 74 y.o. year old female presents complaining of swelling both lower extremities shows that she has numbness burning sensation occasion in her feet she worsening pain in the balls of both feet feels walking on rocks her left foot she has lots of muscle spasms of both feet she has beentreated for breast cancer and lymphoma has a history of arthritis of both lower extremities reportsthat last time the topical anti-inflammatory Voltaren had minimal to no improvement she is getting some worsening radiating pain to both feet has not followed with vascular surgery is requesting a refill referral ROS: GENERAL: Pt denies nausea, fever, vomiting, chills, or shortness of breath. Pt in NAD. CARDIOLOGY: pt denies chest pain, palpitations LUNGS: pt denies shortness of breath MUSCULOSKELETAL: See HPI, otherwise no joint pain or swelling, back pain, or muscle pain. SKIN: see HPI, otherwise no lesions, rash or itching NEURO: No persistent headache, weakness or numbness The remainder of the review of systems is noncontributory PAST MEDICAL HISTORY: There is no problem list on file for this patient. SOCIAL HISTORY: Social History Tobacco Use Smoking status: Not on file Smokeless tobacco: Not on file Substance Use Topics Alcohol use: Not on file ACTIVE MEDICATIONS: Outpatient Medications Marked as Taking for the 07/28/25 encounter (Office Visit) with César Barbosa DPM Medication Sig Dispense Refill acetaminophen (TYLENOL) 500 mg tablet Take 2 tablets (1,000 mg total) by mouth 1 (one) time each day. chlorhexidine (PERIDEX) 0.12 % solution PLEASE SEE ATTACHED FOR DETAILED DIRECTIONS dicyclomine (BENTYL) 10 mg capsule TAKE 1-2 CAPSULES BY MOUTH EVERY 6 HOURS IF NEEDED FOR CRAMPS/DISCOMFORT levothyroxine (SYNTHROID, LEVOTHROID) 88 mcg tablet take 1 tablet (88 mcg) by mouth before breakfast metroNIDAZOLE (FLAGYL) 500 mg tablet Take 1 tablet (500 mg total) by mouth every 8 (eight) hours. montelukast (SINGULAIR) 10 mg tablet take 1 tablet (10 mg) by mouth in the evening ondansetron ODT (ZOFRAN-ODT) 4 mg disintegrating tablet DISSOLVE 1 TABLET ORALLY EVERY 8 HOURS NEEDED FOR NAUSEA AND VOMITING pantoprazole (PROTONIX) 40 mg EC tablet sucralfate (CARAFATE) 100 mg/mL suspension TAKE 10 ML ORALLY 2 TIMES A DAY FOR 7 DAYS valACYclovir (VALTREX) 1 gram tablet TAKE 2 TABLETS (2,000 MG) BY MOUTH ONCE PER DAY FOR 1 DAY. ALLERGIES: Allergies Allergen Reactions Aspirin Rash PHYSICAL EXAM: There were no vitals taken for this visit. PODIATRIC EXAMINATION: GENERAL: Patient appears well nourished, with NAD. VASCULAR: Dorsalis pedis pulses are 1/4 bilaterally and Posterior tibial pulses are 1/4 bilaterally. Capillary filling time within normal limits the digits. No pallor on elevation or rubor on dependency. Present varicosities +4 pitting edema bilateral shins. Denies rest pain or claudication pain. NEUROLOGICAL: Sharp/dull sensation diminished, protective sensation intact 10/10 with Ipswitch touch test bilaterally, vibratory sensation intact to the tibial tuberosity. ORTHOPEDIC: Good muscle strength 5/5 of all flexors and extensors. Dorsi flexion of ankle ,10 degrees, plantar flexion WNL. No muscle atrophy. DERMATOLOGICAL:.No masses or skin lesions noted. Normal skin temperature, normal skin turgor. BIOMECHANICS: Ankle ROM WNL, STJ ROM wnl, MTJ ROM wnl, 1st MPJ ROM wnl. Hammertoe contracture 2 through 5 left right with callus buildup of the tip of the left third toe metatarsalgia both feet left worse than right with callus buildup subthird metatarsal left foot IMAGING: IMPRESSION: 1. Neuritis 2. Plantar fascial fibromatosis 3. Peripheral venous insufficiency 4. Bilateral femoral artery stenosis (CMS/HCC V24) 5. Corns and callosities 6. Hammer toe of left foot 7. Metatarsalgia of left foot PLAN: Pt was seen and examined, history reviewed. Neuritis and neuropathy discussed and reviewed Alpha lipoic acid prescribed for neuritis and cramping Discussed reviewed neurological complaints she is currently on supplements for B12 Referral resent per patient's request vascular surgery for discussion of venous congestive diseases Revisit possible evidence of compression stockings patient declined Follow-up offered in 1 to 2 months Hyperkeratotic tissue debrided pared with a number #15 scalpel blade x2 César Barbosa DPM documented in this encounter Plan of Treatment Upcoming Encounters Date Type Department Care Team (Late st Contact Info) Description 09/03/2025 1:30 PM EST Consult Vascular Surgery - [place] [address] [facility] [address] [place] [phone] Genny Tapia MD [address] [place] [phone] Scheduled Referrals Name Type Priority Associated Diagnoses Orde r Schedule Ambulatory referral to Vascular Surgery Outpatient Referral Routine Peripheral venous insufficiency 1 Occurrences starting 07/28/2025 until 07/28/2026 documented as of this encounter Visit Diagnoses Diagnosis Neuritis- Primary Unspecified neuralgia, neuritis, and radiculitis Plantar fascial fibromatosis Peripheral venous insufficiency Unspecified venous (peripheral) insufficiency Bilateral femoral artery stenosis (CMS/HCC V24) Stricture of artery Corns and callosities Hammer toe of left foot Metatarsalgia of left foot documented in this encounter Care Teams Marble Polisher Relationship Specialty Start Date End Date Sandy Rubi MD [address] [place] [address] PCP - General Family Medicine 02/10/25 documented as of this encounter
--- OUTSIDE RECORDS SUMMARY | 2025-07-29 09:15 | XMS_ITS | Encounter Summary ---
Author Organization [employer] Address [address] [facility] 7t [place] [address] Care Team Providers Care Instrumentation Technologist Name Role Phone Sandy Rubi MD Primary Care Provider [phone] Encounter Details Date Type Department Care Team (Latest Contact Info) Description 07/29/2025 9:15 AM EST Office Visit [facility] [address] [place] [address] Sandy Rubi MD [address] [place] [address] Acquired hypothyroidism (Primary Dx); Osteopenia of neck of femur, unspecified laterality; Vitamin D deficiency; Diverticulosis of colon; Gastroesophageal reflux disease, unspecified whether esophagitis present; Metabolic dysfunction-associated steatotic liver disease (MASLD); Kidney stone; B-cell lymphoma of intra-abdominal lymph nodes, unspecified B-cell lymphoma type (CMS/HCC) (HCC); Lobular carcinoma in situ (LCIS) of left breast; Anemia due to vitamin B12 deficiency, unspecified B12 deficiency type; Mixed stress and urge urinary incontinence; Encounter for immunization; Screening for diabetes mellitus; Screening for lipid disorders; Bruise Social History Tobacco Use Types Packs/Day Years [...] Answer Date Recorded Patient Health Questionnaire-2 Score 2 07/29/2025 Internet Access Answer Date Recorded Internet Access [...] Sign Reading Time Taken Comments Blood Pressure 110/60 07/29/2025 8:51 AM EST Pulse 74 07/29/2025 8:51 AM EST Temperature 35.4 C (95.7 F) 07/29/2025 8:51 AM EST Respiratory Rate 14 07/29/2025 8:5 1 AM EST Oxygen Saturation 98% 07/29/2025 8:51 AM EST Inhaled Oxygen Concentration - - Weight 74.8 kg (164 lb 12.8 oz) 07/29/2025 8:51 AM EST Height 154.9 cm (5' 1 ) 07/29/2025 8:51 AM EST Body Mass Index 31.14 07/29/2025 8:51 AM EST documented in this encounter Functional Status * Over the past 2 weeks, how often have you been bothered by any of the following problems? Question Answer Date of Assessment Author Patient Health Questionnaire -2 Score 2 07/29/2025 8:50 AM EST Katelyn Silva MA * Little interest or pleasure in doing things Answer Date of Assessment Author Several days 07/29/2025 8:50 AM Monse Ramos MA * Feeling down, depressed, or hopeless Answer Date of Assessment Author Several days 07/29/2025 8:50 AM Monse Ramos [place] * Trouble falling or staying asleep, or sleeping too much Answer Date of Assessment Author Several days 07/29/2025 8:50 AM Monse Ramos MA * Feeling tired or having little energy Answer Date of Assessment Author Several days 07/29/2025 8:50 AM Monse Ramos MA * Poor appetite or overeating Answer Date of Assessment Author Not at all 07/29/2025 8:50 AM Monse Ramos MA * Feeling bad about yourself - or that you are a failure or have let yourself or your family down Answer Date of Assessment Author Not at all 07/29/2025 8:50 AM Monse Ramos MA * Trouble concentrating on things, such as reading the newspaper or watching television Answer Date of Assessment Author Not at all 07/29/2025 8:50 AM Monse Ramos MA * Moving or speaking so slowly that other people could have noticed? Or the opposite - being so fidgety or restless that you have been moving around a lot more than usual. Answer Date of Assessment Author Not at all 07/29/2025 8:50 AM Monse Ramos MA documented as of this encounter Miscellaneous Notes * Assessment & Plan Note - Sandy Rubi MD - 07/29/2025 5:45 AM ESTAssociated Problem(s): B12 deficiency anemia - following with Dr. Polanco - continue vitamin B12 IM monthly at [facility] / [facility]c - continue folic acid supplement * Assessment & Plan Note - Sandy Rubi MD - 07/29/2025 5:45 AM ESTAssociated Problem(s): Lobular carcinoma in situ of breast Dx: Lobular Carcinoma in situ of the left breast in April 2011 Tx: s/p Lumpectomy and radiation. Tamoxifen June 2011 - June 2016; complicated by pulmonaryembolism Oncologist: Dr. Polanco, last seen in May 2025 Last Screening b/l Mammo on 10/10/24 BI-RADS2, annual screening schedule She has completed 5 years of tamoxifen treatment. Continue surveillance per protocol and follow-up appt with Dr. Polanco. * Assessment & Plan Note - Sandy Rubi MD - 07/29/2025 5:44 AM ESTAssociated Problem(s): B-cell lymphoma (CMS/HCC) (HCC) -diagnosed in October 2020 -low grade B-cell lymphoma -PET 10/20/20 FDG avid retroperitoneal and mesenteric lymph nodes -Echocardiogram on 10/26/20 Normal EF -s/p 6 cycles of R-CHOP chemotherapy (bendamustine / ritusimab from 11/11/20 to 04/07/21) -Following with Oncologist, Dr. Tan, last seen in May 2025. No sign of recurrence. Most recent CT in May 2025 showed no adenoapthy. -Currently in remission; continue following up with oncologist and surveillance per oncologist. * Assessment & Plan Note - Sandy Rubi MD - 07/29/2025 5:44 AM ESTAssociated Problem(s): Kidney stone -recurrent Kidney Stones -First right kidney stone diagnosed in December 2012. Treatment Hx: December 2012 cystostopy, ureteroscopy, laser stone ablation, stone extraction, stent placement. January 2013 Right ECSWL May 2013 Right ECSWL May 2019 Right ESWL February 2023 Right ESWL -Followed by [facility] Urology provider, last seen on 06/09/2025 -Most recent US in May 2025 showed right kidney stone, nonobstructive, 9-12 mm. -Continue active surveillance -Continue drinking water 2L / day, with addition of lemon juice -Continue vitamin B6 100 mg daily * Assessment & Plan Note - Sandy Rubi MD - 07/29/2025 5:43 AM ESTAssociated Problem(s): Metabolic dysfunction-associated steatotic liver [...] Plan Note - Sandy Rubi MD - 07/29/2025 5:42 AM ESTAssociated Problem(s): Gastroesophageal reflux disease -GI: Dr. Jeong -Most recent EGD on 03/30/22, mild gastritis -continue Pantoprazole. -continue simethicone prn gas pain - no longer on famotidine * Assessment & Plan Note - Sandy Rubi MD - 07/29/2025 5:42 AM ESTAssociated Problem(s): Diverticulosis of colon - diverticulitis of proximal sigmoid colon in Aug 2022 s/p treatment with metronidazole and ciprofloxacin (pt had an adverse reaction with levofloxacin) - diverticulitis of proximal sigmoid colon in May 2024 s/p treatment with metronidazole and levofloxacin (patient tolerated levofloxacin) - diverticulitis of sigmoid colon in May 2025 s/p treatment with metronidazole and ciprofloxacin * Assessment & Plan Note - Sanyd Rubi MD - 07/29/2025 5:39 AM ESTAssociated Problem(s): Vitamin D deficiency - secondary hyperparathyroidism - last vitamin D level was normal in Apr 2023 - continue vitamin D supplementation * Assessment & Plan Note - Sandy Rubi MD - 07/29/2025 5:37 AM ESTAssociated Problem(s): Osteopenia - last DEXA on 12/28/2022, mild osteopenia, T-score -1.3 in femoral neck * Assessment & Plan Note - Sandy Rubi MD - 07/29/2025 5:37 AM ESTAssociated Problem(s): Acquired hypothyroidism Most recent TSH was therapeutic, 1.11 on 02/10/2025 Continue levothyroxine 88 mcg daily. documented in this encounter Plan of Treatment Scheduled Orders Name Type Priority Associated Diagnoses Orde r Schedule Culture, Urine, Routine Microbiology Routine Mixed stress and urge urinary incontinence Expected: 07/29/2025 (Approximate), Expires: 07/29/2026 TSH with Reflex to Free T4 Lab Routine Acquired hypothyroidism Expected: 07/29/2025 (Approximate), Expires: 07/29/2026 Hemoglobin A1c Lab Routine Screening for diabetes mellitus Expected: 07/29/2025 (Approximate), Expires: 07/29/2026 Comprehensive Metabolic Panel Lab Routine Acquired hypothyroidism Expected: 07/29/2025 (Approximate), Expires: 07/29/2026 Lipid Panel with Reflex to Direct LDL Lab Routine Screening for lipid disorders Expected: 07/29/2025 (Approximate), Expires: 07/29/2026 Vitamin D, 25-Hydroxy, Total, Immunoassay Lab Routine Vitamin D deficiency Expected: 07/29/2025 (Approximate), Expires: 07/29/2026 Prothrombin Time-INR Lab Routine Bruise Expected: 07/29/2025, Expires: 07/29/2026 Partial Thromboplastin Time, Activated (APTT) Lab Routine Bruise Expected: 07/29/2025, Expires: 07/29/2026 CBC auto differential Lab Routine Anemia due to vitamin B12 deficiency, unspecified B12 deficiency type Expected: 07/29/2025 (Approximate), Expires: 07/29/2026 Ferritin Lab Routine Anemia due to vitamin B12 deficiency, unspecified B12 deficiency type Expected: 07/29/2025 (Approximate), Expires: 07/29/2026 Iron And Total Iron Binding Capacity Lab Routine Anemia due to vitamin B12 deficiency, unspecified B12 deficiency type Expected: 07/29/2025, Expires: 07/29/2026 Reticulocyte Count Lab Routine Anemia due to vitamin B12 deficiency, unspecified B12 deficiency type Expected: 07/29/2025, Expires: 07/29/2026 Vitamin B12 (Cobalamin) and Folate Panel, Serum Lab Routine Anemia due to vitamin B12 deficiency, unspecified B12 deficiency type Expected: 07/29/2025 (Approximate), Expires: 07/29/2026 documented as of this encounter Procedures Procedure Name Priority Date/Time Associated Diagnosis Comments POCT URINALYSIS DIPSTICK Routine 07/29/2025 9:41 AM EST Mixed stress and urge urinary incontinence documented in this encounter Results * POCT urinalysis dipstick manually resulted (CPT 42174) (07/29/2025 9:41 AM EST) Color, UA Yellow Clarity, UA Hazy Glucose, UA Negative Bilirubin, UA Negative Ketones, UA Negative Spec Grav, UA 1.015 Blood, UA Negative Negative, None Detected pH, UA 6.0 Protein, UA Negative Urobilinogen, UA 0.2 Leukocytes, UA Negative Negative, Rare, Trace, 1+ (17), 2+ (35), 3+ (70), Trace (15) Nitrite, UA Negative Negative, None Detected Appearance, UA [id number] QC Media Lot # Lot# Expiration Date Urine (Urine, Random) 07/29/2025 9:41 AM EST Sandy Rubi MD POINT OF CARE TEST ENTER/EDIT OR DERABLES Final Result documented in this encounter Visit Diagnoses Diagnosis Acquired hypothyroidism- Primary Unspecified hypothyroidism Osteopenia of neck of femur, unspecified laterality Vitamin D deficiency Diverticulosis of colon Diverticulosis of colon (without mention of hemorrhage) Gastroesophageal reflux disease, unspecified whether esophagitis present Metabolic dysfunction-associated steatotic liver disease (MASLD) Kidney stone Calculus of kidney B-cell lymphoma of intra-abdominal lymph nodes, unspecified B-cell lymphoma type (CMS/HCC) (HCC) Lobular carcinoma in situ (LCIS) of left breast Anemia due to vitamin B12 deficiency, unspecified B12 deficiency type Mixed stress and urge urinary incontinence Mixed incontinence urge and stress (male)(female) Encounter for immunization Screening for diabetes mellitus Screening for lipid disorders Bruise Contusion of unspecified site documented in this encounter Additional Health Concerns Assessment Noted Time PHQ-9 Depression Total Score: 0 04/14/20 24 9:33 AM EDT documented as of this encounter Care Teams Instrumentation Technologist Relationship Specialty Start Date End Date Sandy Rubi MD [address] [place] [address] PCP - General Family Medicine 08/06/18 documented as of this encounter
--- OUTSIDE RECORDS SUMMARY | 2025-07-29 15:17 | XMS_ITS | Encounter Summary ---
Author Organization [employer] Address [address] [facility] 7t [place] [address] Care Team Providers Care Wind Field Manager Name Role Phone Sandy Rubi MD Primary Care Provider [phone] Encounter Details Date Type Department Care Team ([facility] st Contact Info) Description 12/10/2023 Orders Only [facility] MEDICINE [address] [place] [address] Sandy Rubi MD [address] [place] [address] Social History Tobacco Use Types Packs/Day Years [...] documented as of this encounter Care Teams Wind Field Manager Relationship Specialty Start Date End Date Sandy Rubi MD [address] [place] [id number] PCP - General Family Medicine 08/06/18 documented as of this encounter
--- OUTSIDE RECORDS SUMMARY | 2025-07-29 15:17 | XMS_ITS | Encounter Summary ---
Author Organization [employer] Address [address] [facility] 7t [place] [address] Care Team Providers Care Real Estate Office Supervisor Name Role Phone Sandy Rubi MD Primary Care Provider [phone] Reason for Visit * Reason Onset Date Comments Referral 01/10/2023 Encounter Details Date Type Department Care Team ([facility] st Contact Info) Description 01/10/2023 Telephone [facility] MED[facility] [address] [place], [place] [phone] Sandy Rubi MD [address] [place] [address] Referral Social History Tobacco Use Types Packs/Day [...] Pt would like to be sent to [facility] located at [id number] Had a previous referral but she was referred back in 2019. Fax #: [phone] Any questions please contact pt at [phone] documented in this encounter Plan of Treatment Not on file documented as of this encounter Visit Diagnoses Not on filedocumented in this encounter Additional Health Concerns Assessment Noted Time PHQ-9 Depression Total Score: 0 12/20/19 23 1:06 PM EDT documented as of this encounter Care Teams Real Estate Office Supervisor Relationship Specialty Start Date End Date Sandy Rubi MD [address] [place] [address] PCP - General Family Medicine 08/06/18 documented as of this encounter
--- OUTSIDE RECORDS SUMMARY | 2025-07-29 15:17 | XMS_ITS | Encounter Summary ---
Author Organization [employer] Address [address] [facility] [address]t [place] [address] Care Team Providers Care Manager Heart Failure Name Role Phone Sandy Rubi MD Primary Care Provider [phone] Encounter Details Date Type Department Care Team (Late st Contact Info) Description 01/10/2023 Orders Only [facility] [address] [place] [address] Sandy Rubi MD [address] [place] [address] Right foot pain (Primary Dx); Primary osteoarthritis [...] as of this encounter Care Teams Manager Heart Failure Relationship Specialty Start Date End Date Sandy Rubi MD [address] [place] [address] PCP - General Family Medicine 08/06/18 documented as of this encounter
--- OUTSIDE RECORDS SUMMARY | 2025-07-29 15:18 | XMS_ITS | Encounter Summary ---
Author Organization [employer] Address [address] [facility] [address]t [place] [address] Care Team Providers Care Automation Qa Lead Name Role Phone Sandy Rubi MD Primary Care Provider [phone] Encounter Details Date Type Department Care Team (Latest Contact Info) Description 07/29/2025 Travel Social History Tobacco Use Types Packs/Day [...] documented as of this encounter Care Teams Automation Qa Lead Relationship Specialty Start Date End Date Sandy Rubi MD [address] [place] [address] PCP - General Family Medicine 08/06/18 documented as of this encounter
--- OUTSIDE RECORDS SUMMARY | 2025-07-29 15:18 | XMS_ITS | Encounter Summary ---
Author Organization [employer] Address [address] [facility] 7t [place] [address] Care Team Providers Care Printing Gray Cloth Tender Name Role Phone Sandy Rubi MD Primary Care Provider [phone] Reason for Visit * Reason Onset Date Comments CHART PREP 07/28/2025 Encounter Details Date Type Department Care Team ([facility] st Contact Info) Description 07/28/2025 Telephone [facility] MED[facility] [address] [place], [place] [phone] Sandy Rubi MD [address] [place], [place] [phone] CHART PREP Social History Tobacco Use Types Packs/Day Years [...] encounter Miscellaneous Notes * Telephone Encounter - Monse Silva MA - 07/28/2025 9:22 AM EST .Chart Prep Labs: not applicable Images: not applicable Vaccines due: Covid Due, Hep B Due, and Flu Due Referrals: Urology Pending appointment on 12/08/25 Screenings: Not Applicable Overdue care gaps: Sbirt, PHQ9, and Oral Health documented in this encounter Plan of Treatment Not on file documented as of this encounter Visit Diagnoses Not on filedocumented in this encounter Additional Health Concerns Assessment Noted Time PHQ-9 Depression Total Score: 0 04/14/20 24 9:33 AM EDT documented as of this encounter Care Teams Printing Gray Cloth Tender Relationship Specialty Start Date End Date Sandy Ruib MD [address] [place] [id number] PCP - General Family Medicine 08/06/18 documented as of this encounter
--- OUTSIDE RECORDS SUMMARY | 2025-07-29 15:18 | XMS_ITS | Encounter Summary ---
Author Organization [employer] Address [address] [place] [address] Care Team Providers Care [employer] Machine Operator Name Role Phone Sandy Rubi MD Primary Care Provider [phone] Encounter Details Date Type Department Care Team ([facility] st Contact Info) Description 05/25/2023 Orders Only [facility] [address] [place] [address] Sandy Rubi MD [address] [place] [address] Social History Tobacco Use Types Packs/Day Years [...] documented as of this encounter Care Teams [employer] Machine Operator Relationship Specialty Start Date End Date Sandy Rubi MD [address] [place] [id number] PCP - General Family Medicine 08/06/18 documented as of this encounter
--- OUTSIDE RECORDS SUMMARY | 2025-07-29 15:18 | XMS_ITS | Clinical Summary ---
Author Organization [employer] Address [address] [place] [address] 7[address] [place] [address] Care Team Providers Care Licensed Professional Counselor Name Role Phone Shanel Rubi MD Primary Care Provider [phone] Allergies Active Allergy Reactions Criticality Noted Date [...] if needed (cough). 473 mL 024 Active magic mouthwash (lidocaine, diphenhydrAMINE, Maalox [...] per day. 90 tablet 3 025 Active levothyroxine (Synthroid, Levoxyl) 88 MCG tabletIndications :Acquired hypothyroidism TAKE 1 TABLET (88 MCG) BY MOUTH BEFORE BREAKFAST 90 tablet 3 025 Active montelukast (Singulair) 10 MG tablet TAKE 1 TABLET (10 MG) BY MOUTH IN THE EVENING 90 tablet 3 025 Active levothyroxine (Synthroid, Levoxyl) 88 MCG tabletIndications :Acquired hypothyroidism Take 1 tablet (88 mcg) by mouth before breakfast. 90 tablet 3 024 2024 Discontinued montelukast (Singulair) 10 MG tablet Take 1 tablet (10 mg) by mouth in the evening. 90 tablet 3 024 2024 Discontinued Active Problems Problem Noted Date Diagnosed Date [...] knee - Following with Dr. Mitchell at [facility] - s/p right knee partial medial and [...] knee - Following with Dr. Mitchell at [facility] - s/p right knee partial medial and [...] posterior horn of the medial meniscus. 2. Lhuy-vy-ggtfmire patellofemoral arthrosis. 3. Mild medial compartment arthrosis. [...] posterior horn of the medial meniscus. 2. Lrwh-ax-gbakmcbo patellofemoral arthrosis. 3. Mild medial compartment arthrosis. [...] 02/27/2023 Overview (02/27/2023): - already evaluated by railroad brakeman, last seen in 2019 - no rheumatological abnormality, pt has hypothyroidism - consider repeating lab Assessment & Plan (05/15/2023 5:17 PM EDT): - evaluated by railroad brakeman and was given a reassurance that she does not have rheumatological problem Right foot pain 12/23/2022 Assessment & Plan (01/31/2025 8:39 AM EDT): -Mar 2022 X-ray showed OA -Seen by gas pumper and Dx plantar fasciitis -Continue ice, stretching exercise, and APAP prn -Continue wearing comfortable shoes. Assessment & Plan (04/15/2024 8:58 AM EDT): -Mar 2022 X-ray showed OA -Seen by gas pumper and Dx plantar fasciitis -Continue ice, stretching exercise, and APAP prn -Continue wearing comfortable shoes. Assessment & Plan (12/23/2022 6:32 PM EDT): -Mar 2022 X-ray showed OA -Seen by gas pumper and Dx plantar fasciitis -Continue ice, stretching exercise, and APAP prn -Continue wearing comfortable shoes. Diverticulosis of colon 12/18/2022 Assessment & Plan (07/29/2025 5:42 AM EST): - diverticulitis of proximal sigmoid colon in Aug 2022 s/p treatment with metronidazole and ciprofloxacin (pt had an adverse reaction with levofloxacin) - diverticulitis of proximal sigmoid colon in May 2024 s/p treatment with metronidazole and levofloxacin (patient tolerated levofloxacin) - diverticulitis of sigmoid colon in May 2025 s/p treatment with metronidazole and ciprofloxacin Assessment & Plan (10/06/2024 5:54 AM EST): [...] liver disease (MASLD) 12/18/2022 Assessment & Plan (07/29/2025 5:43 AM EST): - evaluated by GI, and [...] with GI as scheduled Assessment & Plan (04/26/2025 6:08 AM EDT): [...] -Mar 2022 X-ray showed OA -Seen by gas pumper and Dx plantar fasciitis -Continue ice, stretching exercise, and APAP prn -Continue wearing comfortable shoes. Assessment & Plan (05/15/2023 5:14 PM EDT): -Mar 2022 X-ray showed OA -Seen by gas pumper and Dx plantar fasciitis -Continue ice, stretching exercise, and APAP prn -Continue wearing comfortable shoes. Assessment & Plan (12/18/2022 6:12 PM EDT): -Mar 2022 X-ray showed OA -Seen by gas pumper and Dx plantar fasciitis -Continue ice, stretching exercise, and APAP prn -Continue wearing comfortable shoes. Osteopenia 12/18/2022 Assessment & Plan (07/29/2025 5:39 AM EST): - last DEXA on 12/28/2022, mild osteopenia, T-score -1.3 in femoral neck Assessment & Plan (01/31/2025 8:36 AM EDT): [...] B-cell lymphoma (CMS/HCC) 12/18/2022 Assessment & Plan (07/29/2025 5:44 AM EST): -diagnosed in October 2020 -low [...] and surveillance per oncologist. Assessment & Plan (04/26/2025 6:11 AM EDT): [...] ritusimab from 11/11/20 to 04/07/21) -Seen by OncologistDr. Tan on 05/17/23. No sign of recurrence. [...] ritusimab from 11/11/20 to 04/07/21) -Seen by OncologistDr. Tan on 05/17/23. No sign of recurrence. [...] 12/15/2022 Acquired hypothyroidism 06/28/2015 Assessment & Plan (07/29/2025 5:37 AM EST): Most recent TSH was therapeutic, 1.11 on 02/10/2025 Continue levothyroxine 88 mcg daily. Assessment & Plan (04/26/2025 6:07 AM EDT): [...] - most recent EKG on 04/14/2025, borderline CT. Last EKG in 2021 in [facility] shows CT 202 ms - review medications - will consider Holter monitor her palpitation becomes more frequent Assessment & Plan (05/15/2023 5:06 PM EDT): - most recent EKG in 2021 in [facility] shows CT 202 ms - review medications - asymptomatic, except dizziness which seems to be BPPV Benign paroxysmal positional vertigo 08/19/2012 Assessment & Plan (04/26/2025 6:04 AM EDT): - continue meclizine prn Assessment & Plan (01/31/2025 8:35 AM EDT): - continue meclizine prn Assessment & Plan (05/15/2023 5:23 PM EDT): - continue meclizine prn Gastroesophageal reflux disease 05/06/2012 Assessment & Plan (07/29/2025 5:42 AM EST): -GI: Dr. Jeong -Most recent EGD on 03/30/22, mild gastritis -continue Pantoprazole. -continue simethicone prn gas pain - no longer on famotidine Assessment & Plan (04/26/2025 6:08 AM EDT): [...] famotidine Kidney stone 05/06/2012 Assessment & Plan (07/29/2025 5:44 AM EST): -recurrent Kidney Stones -First right kidney stone diagnosed in December 2012. Treatment Hx: December 2012 cystostopy, ureteroscopy, laser stone ablation, stone extraction, stent placement. January 2013 Right ECSWL May 2013 Right ECSWL May 2019 Right ESWL February 2023 Right ESWL -Followed by [facility] Urology provider, last seen on 06/09/2025 -Most recent US in May 2025 showed right kidney stone, nonobstructive, 9-12 mm. -Continue active surveillance -Continue drinking water 2L / day, with addition of lemon juice -Continue vitamin B6 100 mg daily Assessment & Plan (04/26/2025 6:09 AM EDT): -recurrent Kidney Stones -First right kidney stone diagnosed in December 2012. Treatment Hx: December 2012 cystostopy, ureteroscopy, laser stone ablation, stone extraction, stent placement. January 2013 Right ECSWL May 2013 Right ECSWL May 2019 Right ESWL February 2023 Right ESWL -Followed by [facility] Urology provider, last seen on 06/12/24 -Most [...] ESWL February 2023 Right ESWL -Followed by [facility] Urology provider, last seen on 06/12/24 -Most [...] ESWL February 2023 Right ESWL -Followed by [facility] Urology provider, last seen on 06/12/24 -Most [...] ESWL February 2023 Right ESWL -Followed by [facility] Urology provider, last seen on 02/23/23 -Most [...] ESWL February 2023 Right ESWL -Followed by [facility] Urology provider, last seen on 02/23/23 -Most [...] ECSWL May 2019 Right ESWL -Followed by [facility] Urology provider, last seen on 10/17/22 -Most [...] situ of breast 03/25/2012 Assessment & Plan (07/29/2025 5:45 AM EST): Dx: Lobular Carcinoma in situ of the left breast in April 2011 Tx: s/p Lumpectomy and radiation. Tamoxifen June 2011 - June 2016; complicated by pulmonary embolism Oncologist: Dr. Polanco, last seen in May 2025 Last Screening b/l Mammo on 10/10/24 BI-RADS2, annual screening schedule She has completed 5 years of tamoxifen treatment. Continue surveillance per protocol and follow-up appt with Dr. Polanco. Assessment & Plan (04/26/2025 6:11 AM EDT): [...] Vitamin D deficiency 03/25/2012 Assessment & Plan (07/29/2025 5:39 AM EST): - secondary hyperparathyroidism - last vitamin D level was normal in Apr 2023 - continue vitamin D supplementation Assessment & Plan (02/08/2025 7:40 AM EDT): [...] B12 deficiency anemia 03/25/2012 Assessment & Plan (07/29/2025 5:45 AM EST): - following with Dr. Polanco - continue vitamin B12 IM monthly at [facility] Heme / Onc - continue folic acid supplement Assessment & Plan (04/14/2025 1:10 PM EDT): - following with Dr. Polanco - continue vitamin B12 IM monthly at [facility] Heme / Onc - continue folic acid supplement Assessment & Plan (01/31/2025 8:37 AM EDT): - following with Dr. Polanco - continue vitamin B12 IM monthly at [facility] Heme / Onc - continue folic acid supplement Assessment & Plan (09/29/2024 10:57 AM EST): - following with Dr. Polanco - continue vitamin B12 IM monthly at [facility] Heme / Onc - continue folic acid supplement Assessment & Plan (11/07/2023 5:26 AM EDT): - following with Dr. Polanco - continue vitamin B12 IM monthly at [facility] Heme / Onc - continue folic acid supplement Assessment & Plan (11/07/2023 5:25 AM EDT): >>ASSESSMENT AND PLAN FOR PERNICIOUS ANEMIA WRITTEN ON 12/18/2022 6:36 PM BY SHANEL RUBI MD - following with Dr. Polanco - vahid vitamin B12 IM monthly at [facility] Heme / Onc - continue folic acid supplement Assessment & Plan (11/07/2023 5:25 AM EDT): >>ASSESSMENT AND PLAN FOR PERNICIOUS ANEMIA WRITTEN ON 05/15/2023 5:17 PM BY SHANEL RUBI MD - following with Dr. Polanco - vahid vitamin B12 IM monthly at [facility] Heme / Onc - continue folic acid supplement Assessment & Plan (11/07/2023 5:25 AM EDT): >>ASSESSMENT AND PLAN FOR PERNICIOUS ANEMIA WRITTEN ON 08/11/2023 6:09 AM BY SHANEL RUBI MD - following with Dr. Polanco - vahid vitamin B12 IM monthly at [facility] Heme / Onc - continue folic acid [...] Date Elevated BP without diagnosis of hypertension 11/09/1902/08/2025 Assessment & Plan (11/09/2023 6:05 PM EDT): - Pt attributes this to stress. - Advised pt to monitor BP at home. - Continue lifestyle modifications. - Will continue to monitor. History of adenomatous polyp of colon 12/18/2022 12/18/2022 Left lower quadrant pain 12/15/2022 Restless legs 07/18/2013 05/15/2023 Migraine with aura 03/25/2012 Sinusitis 03/25/2012 05/15/2023 Encounters Date Type Department Care Team Description 07/29/2025 9:15 AM EST Office Visit [facility] [address] [place] [phone] Shanel Rubi MD Acquired hypothyroidism (Primary Dx); [...] diabetes mellitus; Screening for lipid disorders; Bruise 07/29/2025 Travel 07/28/2025 Telephone [facility] [address] [place] [address] Shanel Rubi MD CHART PREP 07/02/2025 Refill [facility] [address] [place] [address] Shanel Rubi MD Acquired hypothyroidism 06/01/2025 Orders Only [facility] External Provider, [facility] 05/26/2025 Telephone [facility] [address] [place] [address] Shanel Rubi MD ER Follow-up 05/21/2025 Orders Only GENERIC EXTERNAL DATA DEPARTMENT Provider, Generic External Data 05/12/2025 Orders Only [address] [address] Shanel Rubi MD Osteopenia of neck of femur, unspecified laterality (Primary Dx); Vitamin D deficiency; Other specified disorders of bone density and structure, other site 05/12/2025 Orders Only [address] [address] Shanel Rubi MD Acquired hypothyroidism (Primary Dx); Osteopenia of neck of femur, unspecified laterality; Hyperparathyroidism, unspecified ([facility]) from Last 3 Months Immunizations Immunization Administration Dates Next Due Hep A, Adult 01/29/2025 Hep B, adult 07/29/2025,01/29/2025 Influenza High-dose Quadriva lent Preservative Free 07/05/2023,05/31/2022 Influenza Quadrivalent Adjuvanted 04/22/2020 Influenza injectable quadriv alent preservative free 06/16/2021,07/20/2016 Influenza, High Dose Seasona l, Preservative Free 07/29/2025,06/02/2019,07/26/2017 Influenza, IIV3, injectable 05/29/2023,1 08/06/2020,05/06/2020,05/14,05/15/2018,09/06/2017,06/01/2016 ,04/06/2015,04/30/2014,05/23/2011 Influenza, Split (incl. annette fied surface antigen) 04/15/2013,05/10/2012 Influenza, seasonal, injecta ble, preservative free 06/01/2016 MMR 11/29/2000 Pfizer Covid-19 Vaccine 12+ 07/29/2025 Pneumococcal Conjugate PCV 13 12/30/2015 Pneumococcal Polysaccharide [...] 8:51 AM EST Respiratory Rate 14 07/29/2025 8:51 AM EST Oxygen Saturation 98% 07/29/2025 8:51 AM EST Inhaled Oxygen Concentration - - Weight 74.8 kg (164 lb 12.8 oz) 07/29/2025 8:51 AM EST Height 154.9 cm (5' 1 ) 07/29/2025 8:51 AM EST Body Mass Index 31.14 07/29/2025 8:51 AM EST Plan of Treatment Health Maintenance [...] (1 - 1-dose 75+ series) 2024 Hepatitis A Vaccines (2 of 2 - Risk 2-dose series) 07/31/2025 01/29/2025 Hepatitis B Vaccines (3 of 3 - Risk 3-dose series) 09/23/2025 07/29/2025, 01/29/2025 COVID-19 Vaccine (6 - Moderna risk season) 2026 07/29/2025, 05/31/2022, 08/03/2021, Additional history exists SDOH Screening 01/29/2026 01/29/2025 Alcohol/Substance Use Screening 07/29/2026 07/29/2025 Depression Screening 07/29/2026 07/29/2025, 04/14/20 Tobacco Screening 07/29/2026 07/29/2025 Colonoscopy 03/10/2028 03/10/2023 Colorectal Cancer Screening 03/10/2028 Lipid Panel 09/30/2029 09/30/2024, 04/09/2023, 01/09/2023, Additional history exists DTaP/Tdap/Td Vaccines (3 - Td or Tdap) 07/05/2033 07/05/2023, 01/21/2013, 03/07/2010, Additional history exists Pneumococcal Vaccine: 50+ Years Completed 07/20/2016, 12/30/2015, 09/03/2014 Hepatitis C Screening Completed 05/20/2021 Influenza Vaccine Completed 07/29/2025, , 05/29/2023, Additional history exists HIB Vaccines Aged Out No longer eligi [...] EST Mixed stress and urge urinary incontinence US RENAL COMPLETE Routine 06/01/2025 10: [address] ABDOMEN PELVIS WO CONTRAST Routine 05/21/2025 12:46 PM EDT LIPASE Routine 05/21/2025 11:03 AM EDT COMPREHENSIVE METABOLIC PANEL Routine 05/21/2025 11:03 AM EDT URINALYSIS, COMPLETE, WITH REFLEX TO CULTURE Routine 05/21/2025 11:03 AM EDT CBC WITH AUTO DIFFERENTIAL Routine 05/21/2025 11:03 AM EDT LIPID PANEL WITH REFLEX TO DIRECT LDL Routine 09/30/2024 8:22 AM EST Screening for lipid disorders HM COLONOSCOPY Routine 03/10/2023 ZZZ HISTORICAL HEPATITIS A,B,C PROFILE Routine 05/20/2021 9:15 AM EDT from Last 3 Months or Most Recently Relevant to Health Maintenance Results * POCT urinalysis dipstick manually resulted (CPT 88917) (07/29/2025 9:41 AM EST) Color, UA Yellow [...] Appearance, UA 501,021 QC Media Lot # [id number] Lot# Expiration Date Urine (Urine, Random) 07/29/2025 9:41 AM EST us Shanel Rubi MD POINT OF CARE TEST ENTER/EDIT OR DERABLES Final Result * US Renal Complete (06/01/2025 10:28 PM EDT) Anatomical Region Laterality Modality Kidney Ultrasound 06/01/2025 10:2 8 PM EDT Narrative 06/01/2025 10:30 PM EDT [address] [address] Ultrasound Report Signed Patient: Anisha Esposito MR#: [id number] : 1950 Acct:[id number] Age/Sex: 74 / F ADM Date: 06/01/25 Loc: HO.US Attending Dr: Radha BOLIVAR Ordering Physician: Radha Han Date of Service: 06/01/25 Procedure(s): US renal BI Accession Number(s): [id number] cc: Radha Han; Shanel Rubi MD Reason [...] in OV> 06/01/252229 DD/ 27 TD/TT: 06/01/252227 Heating Technician: Procedure Note Donotuseinterpreter, Image - 06/01/2025 [place] [address] Ultrasound Report Signed Patient: Anisha Esposito EMR#: [id number] : 1950Acct:[id number] Age/Sex: 74 / FADM Date: 06/01/25 Loc: HO.US Attending Dr: Radha BOLIVAR Ordering Physician: Radha Han Date of Service: 06/01/25 Procedure(s): US renal BI Accession Number(s): [id number] cc: Radha Han; Shanel Rubi MD Reason [...] in OV> 06/01/252229 DD/ 27 TD/TT: 06/01/252227 Heating Technician: us [facility] External Provider IMG US PROCEDURES Final Result * CT Abdomen Pelvis w/o Contrast (05/21/2025 12:46 PM EDT) Anatomical Region Laterality Modality Body, Pelvis, Abdomen Computed T omography 05/21/2025 12:4 6 PM EDT Narrative 05/21/2025 1:27 PM EDT [place] [address] CT Scan Report Signed Patient: Anisha Esposito MR#: [id number] : 1950 Acct:[id number] Age/Sex: 74 / F ADM Date: 05/21/25 Loc: .ED Attending Dr: Ordering Physician: Edenilson Lane Date of Service: 05/21/25 Procedure(s): CT abdomen pelvis wo IV con Accession Number(s): [id number] cc: Edenilson Lane; Shanel Rubi MD Report Number: [id number]: Total DLP = 478.00 mGy-cm Reason for [...] 05/21/25 1324 DD/ 1246 TD/TT: 05/21/25 1317 Heating Technician: Procedure Note Donotuseinterpreter, Image - 05/21/[address] [address] [address] Scan Report Signed Patient: Anisha Esposito EMR#: [id number] : 1950Acct:[id number] Age/Sex: 74 / FADM Date: 05/21/25 Loc: HO.ED Attending Dr: Ordering Physician: Edenilson Lane Date of Service: 05/21/25 Procedure(s): CT abdomen pelvis wo IV con Accession Number(s): [id number] cc: Edenilson Lane; Sahnel Rubi MD Report Number: [id number]: Total DLP = 478.00 mGy-cm Reason for [...] 05/21/25 1324 DD/ 1246 TD/TT: 05/21/25 1317 Heating Technician: [facility] External Provider IMG CT PROCEDURES Edited Result - Final * (ABNORMAL) Urinalysis, Complete, with Reflex to Culture (05/21/2025 11:03 AM EDT) Color Urine Yellow [facility] Appearance Urine Clear [facility] PH 6.5 5.0 - 9.0 [facility] Glucose Urine UA Negative Negative mg/dL [facility] Urine Blood Negative Negative [facility] Specific [place] - Urine <=1.005 1.005 - 1.025 [facility] Urine Protein Negative Neg-Trace mg/dL [facility] Urine Ketones Negative Negative mg/dL [facility] Nitrite Urine Negative Negative [facility] Leukocyte Esterase Urine Trace(A) Negative [facility] RBC Urine 0-2 0 - 2 /HPF [facility] Urine WBC 0-5 0 - 5 /HPF [facility] Urine Squamous Epithelial Cell 0-2 0 - 2 /HPF [facility] Urine Bacteria None Seen None Seen [facility] Hyaline Casts, Urine 0-2 0 - 2 /LPF [facility] 05/21/2025 11:0 3 AM EDT 05/21/2025 11:06 AM EDT Narrative [facility] - 05/21/2025 11:16 AM EDT [id number], Clean Catch us Generic External Data Provider LAB URINE ORDERAB LES Final Result [facility] [address], [place] [phone] * (ABNORMAL) CBC auto differential (05/21/2025 11:03 AM EDT) White Blood Count 6.7 4.8 - 10.8 X10*3/uL [facility] Red Blood Count 3.81(L) 4.20 - 5.50 X10*6/uL [facility] Hemoglobin 10.7(L) 12.0 - 16.0 g/dl [facility] Hematocrit 33.3(L) 37.0 - 47.0 % [facility] Mean Corpuscular Volume 87.4 80.0 - 98.0 fL [facility] Mean Corpuscular Hemoglobin 28.1 27.0 - 33.0 pg [facility] Mean Corpuscular HGB Conc 32.1 31.0 - 35.0 g/dl [facility] Red Cell Distribution Width 13.9 11.0 - 16.0 % [facility] Platelet Count 163 160 - 400 X10*3/uL [facility] Mean Platelet Volume 11.3 9.4 - 12.3 fL [facility] Neutrophils Percent Auto 66.0 45 - 73 % [facility] Imm Gran Pct Auto 0.3 0.0 - 0.4 % [facility] Lymphocytes Percent Auto 20.2 20 - 40 % [facility] Monocytes Percent Auto 12.6(H) 2 - 11 % [facility] Eosinophils Percent Auto 0.6 0 - 4 % [facility] Basophils Percent Auto 0.3 0 - 2 % [facility] NRBC Pct Auto 0.0 0.0 - 0.2 /100WBC [facility] Neutrophils Absolute Auto 4.4 2.0 - 8.3 x10*3/uL [facility] Imm Gran Abs Auto 0.02 0.00 - 0.03 X10*3/uL [facility] Lymphocytes Absolute Auto 1.4 1.2 - 4.9 X10*3/uL [facility] Monocytes Absolute Auto 0.8 0.1 - 1.2 X10*3/uL [facility] Eosinophils Absolute Auto 0.0 0.0 - 0.4 X10*3/uL [facility] Basophils Absolute Auto 0.0 0.0 - 0.2 X10*3/uL [facility] NRBC Abs Auto 0.000 0.0 - 0.012 X10*3/uL [facility] 05/21/2025 11:0 3 AM EDT 05/21/2025 11:06 AM EDT us Generic External Data Provider LAB BLOOD ORDERAB LES Final Result [facility] [address] [place] [address] [phone] * Lipase (05/21/2025 11:03 AM EDT) Lipase 38 8 - 78 U/L [facility] 05/21/2025 11:0 3 AM EDT 05/21/2025 11:06 AM EDT us Generic External Data Provider LAB BLOOD ORDERAB LES Final Result [facility] [address] [place] [address] [phone] * Comprehensive Metabolic Panel (05/21/2025 11:03 AM EDT) Sodium 138 135 - 145 mmol/L [facility] Potassium 3.5 3.3 - 5.1 mmol/L [facility] Chloride 106 96 - 108 mmol/L [facility] Carbon Dioxide 22 22 - 29 mmol/L [facility] Anion Gap 14 12 - 20 [facility] Urea Nitrogen (BUN) 12 9 - 16 mg/dL [facility] Creatinine, Serum 0.66 0.5 - 1.4 mg/dL [facility] Creatinine Clr Calc Pharmacy 69.8 [facility] Comment:Provided height and weight: 160.02 cm,71.5 kg.eGFR (calculated from the MDRD study equation) and eCrCl(calculated from the Cockcroft-Gault equation) are based ondifferent parameters and may not yield comparable results.If eCrCl result is absurd, please check patient'sheight/weight. Estimated Glomerular Filt Rate >60 [facility] Comment:Chronic Kidney Disea se: Estimated GFR < 60 mL/min/1.41v4Mvhyll Kidney Disease: Estimated GFR < 15 mL/min/1.73m2 Glucose 94 60 - 115 mg/dL [facility] Calcium 9.9 8.4 - 10.2 mg/dL [facility] Bilirubin, Total 0.6 0.0 - 1.0 mg/dL [facility] Aspartate Amino Transferase 23 5 - 31 U/L [facility] Alanine Aminotransferase 16 0 - 31 U/L [facility] Total Protein 8.0 6.5 - 8.0 g/dL [facility] Albumin Level 4.5 3.5 - 5.0 g/dL [facility] Alkaline Phosphatase 107 39 - 117 U/L [facility] 05/21/2025 11:0 3 AM EDT 05/21/2025 11:06 AM EDT us Generic External Data Provider LAB BLOOD ORDERAB LES Final Result [facility] [address] [place] [phone] * Lipid Panel with Reflex to Direct LDL (09/30/2024 8:22 AM EST) Triglycerides 38 <150 mg/dL [facility] Comment:Desirable Triglyceri de: less than 150 mg/dLBorderline High Triglyceride 150-199 mg/dLHigh Triglyceride: 200-499 mg/dLVery High Triglyceride: greater than or equal to 5OO mg/dL Cholesterol 123 <200 mg/dL [facility] Comment:Desirable Cholestero l: less than 200 mg/dLBorderline High Cholesterol: 200-239 mg/dLHigh Cholesterol: greater than 239 mg/dL LDL Cholesterol Calculated 69 <100 mg/dL [facility] Comment:Desirable LDL: less than 100 mg/dLNear Optimal/Above Optimal LDL: 110- 129 mg/dLBorderline High LDL: 130-159 mg/dLHigh LDL: 160-189 mg/dLVery High LDL: greater than or equal to 190 mg/dL HDL Cholesterol 47 >40 mg/dL [facility] Comment:Desirable HDL: great er than 40 mg/dL Note: This HDL assay may give artificially low results in patients with liver disease. Blood 09/30/2024 8:22 AM EST 09/30/2024 11:35 AM EST us Shanel Rubi MD LAB BLOOD ORDERABLES Final Resul t [facility] [address] [place] [address] [phone] * Hm Colonoscopy (03/10/2023) Colonoscopy Normal [...] LABS Fi nal Result Performing Organization Address City/[facility]/ZIP Co de Phone Number [facility] [address] from Last 3 Months or Most Recently Relevant to Health Maintenance Insurance [address] [place] [address] STANDARD MEDICARE [place] STAND ADULT Care Teams Licensed Professional Counselor Relationship Specialty Start Date End Date Shanel Rubi MD [address] [place] [id number] PCP - General Family Medicine 08/06/18
--- OUTSIDE RECORDS SUMMARY | 2025-07-29 15:18 | XMS_ITS | Patient Health Record ---
Author Organization [facility] Address [address] [place] [phone] Care Team Providers Care Metals Sales Representative Name Role Phone Elicia PADILLA, Sandy Primary Care Provider Hugo Cain Unavailable [phone] Allergies Allergen (clinical drug ingredient) Drug/Non Drug Allergy documented on EMR Reaction Allergy Type Onset Date Status aspirin Aspirin Unknown Drug Allergy Active Penicillin Unknown Drug Allergy Active Reason For Referral No Information Medications Medication SIG (Take, Route, Frequency, Duration) Notes Start Date End Date Status Vitamin B6 50 MG Tablet 1 tablet Orally Once a day; Duration: 30 day(s) Active Vitamin C 500 MG Capsule as directed Orally Active Montelukast Sodium 10 MG Tablet TAKE 1 TABLET (10 MG) BY MOUTH IN THE EVENING Oral; Duration: 90 Days Active Vitamin D 1000unit Capsule 1 capsule Orally Once a day Active Vitamin B 12 1000mcg 1 intramuscular darryn ry month Active Meclizine HCl 25mg Tablet 1 tablet as needed Orally 3 times a day as needed Active Singulair 10 MG Tablet 1 tablet in the evening Orally Once a day Active Pantoprazole Sodium 40 MG Tablet Delayed Release TAKE 1 TABLET BY MOUTH TWICE A DAY Orally Twice a day for heartburn and reflux; Duration: 90 days Active Sucralfate 1 GM Tablet TAKE 1 TABLET BY ORAL ROUTE 4 TIMES EVERY DAY ON AN EMPTY STOMACH 1 HOUR BEFORE MEALS AND AT BEDTIME Oral as directed Not-Taking/PRN Levothyroxine Sodium 112 MCG Tablet 1 tablet Orally Once a day Active ProAir HFA 90mcg Aerosol Solution 2 puffs as needed Inhalation every 4 hrs Active Albuterol Sulfate (2.5 MG/3ML) 0.083% Nebulization Solution 3 ml Inhalation Three times a day Active Dicyclomine HCl 10 MG Capsule TAKE 1-2 [...] stop date) Former Smoker NA - NA Social History Tobacco Use: Social Info Question Answer Notes Tobacco Use/Smoking Patient is a former smoker When did you stop smoking? 26 Additional Details Category Social Info Options Details Miscellaneous: Marital status: Occupation: disabled Section Notes: She does not smoke nor [...] W/U Status Risk Notes Problem Epigastric pain (98747009) Epigastric abdominal pain (R10.13) Active confirmed Problem Diverticulitis of colon (206696819) Diverticulitis of large intestine without perforation or abscess without bleeding (K57.32) Active confirmed Problem Screening for malignant neoplasm of colon (477846912) Encounter for screening for malignant neoplasm of colon (Z12.11) Active confirmed Problem Screening for malignant neoplasm of rectum (145117719) Encounter for screening for malignant neoplasm of rectum (Z12.12) Active confirmed Problem Gastroesophageal reflux disease without esophagitis (877178632) Gastroesophageal reflux disease without esophagitis (K21.9) Active confirmed Problem Fatty liver (938902762) Fatty liver (K76.0) Active confirmed Problem Left upper quadrant pain (323345076) Abdominal pain, left upper quadrant (R10.12) Active confirmed Problem Gastritis (1337412) Gastritis (K29.70) Active c onfirmed Problem History of adenomatous polyp of colon (947918205) Hx of adenomatous colonic polyps (Z86.010) Active confirmed Problem Esophageal reflux finding (741626730) Gastroesophageal reflux (K21.9) Active confirmed Problem Cirrhosis - non-alcoholic (376788881) Cirrhosis of liver without ascites, 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) Active confirmed Problem Irritable bowel syndrome characterized by constipation (004570348) Irritable bowel syndrome with constipation (K58.1) Active confirmed Problem Nonspecific mesenteric adenitis (761307396) Mesenteric adenitis (I88.0) Active confirmed Problem Diverticulosis of colon (989261902) Diverticulosis of colon (K57.30) Active confirmed Problem Chest pain (04152135) Xiphoid pain (R07.89) Active confirmed Vital Signs Blood pressure diastolic 11 mm Hg 11/18/2024 Height 64 in 11/18/2024 Blood pressure systolic 111 mm Hg 11/18/2024 Weight 166 lbs 11/18/2024 BMI 28.49 kg/m2 11/18/2024 Encounters Encounter Location Date Provider Diagnosis [facility] [address] [place] [phone] 11/18/2024 Hugo Jeong Gastroesophageal ref lux disease without esophagitis K21.9 ; Irritable bowel syndrome with constipation K58.1 ; Hx of adenomatous colonic polyps Z86.010 ; Abdominal pain, left upper quadrant R10.12 and Cirrhosis of liver without ascites, unspecified hepatic cirrhosis type K74.60 [facility] [address] [place] [phone] 04/21/2025 Hugo Jeong Assessments Encounter Date Diagnosis (ICD Code) Assessment Notes Treatment Notes Treatment Clinical Notes Section Notes 11/18/2024 Irritable bowel syndrome with constipation (ICD-10 [...] keep you advised of her progress.. 11/18/2024 Gastroesophageal reflux disease without esophagitis (ICD-10 [...] FERRITIN 04/21/2021 PROTHROMBIN TIME (PT, INR) 04/21/2021 [id number] (A1A) 04/21/2021 ALPHA-FETOPROTEIN,TUMOR MARKER 4 FLUOR. ANTINUCLEAR [...] Start Date Coverage End Date MEDICARE OF [place] [address] [place] [address] [id number] JIM CARRION Self - patient is the insured MEDICAID OF [facility] [address] [place] [phone] [id number] JIM CARRION Self - patient is the insured Medical (General) History Medical History History ICD Code Left-sided breast vlbmuzidk-[id number]-[id number] owed by Dr. Polanco Hypothyroidism Asthma Kidney stones Pernicious anemia Arthritis Denies VA,DM,CVA,renal disease Colonoscopy in April revealed a small tubular adenoma that was removed, as well as mild diverticulosis and small internal hemorrhoids Upper endoscopy in April 2012 revealed only a small hiatal hernia, but no evidence of any H. pylori, esophagitis, nor ulcer disease. Urinary incontinence Pulmonary embolus--on Coumadin--but fini shed in 08/2016 Denies VA,DM,CVA,renal disease Colonoscopy 01/2017--1 small tubular jabier sarthak [...] of any complication Cirrhosis noted on imaging christine leisa in 2020, although a CT scan in [...] nor H. pylori. Surgical History Surgery Date(Month/Year) Carpal tunnel--bilateral CCY BTL Breast biopsy- benign - taking tamoxifen --sees Dr. Polanco Right shoulder Trigger finger release Knee 06/28
--- OUTSIDE RECORDS SUMMARY | 2025-07-29 15:18 | XMS_ITS | Encounter Summary ---
Author Organization [facility] Address [address] [place] [address] [address] [place] [address] Care Team Providers Care Track Dresser Name Role Phone Sandy Rubi MD Primary Care Provider Reason for Referral * Imaging (Routine) - Closed Specialty Diagnoses / Procedures Referred By Akira ram Referred To Contact Radiology Diagnoses Osteopenia of neck of femur, unspecified laterality Vitamin D deficiency Other specified disorders of bone density and structure, other site Procedures BD DEXA Axial Sandy Rubi MD [address] [place] [address] Phone: tel: fax: [address] [address] Phone: tel: fax: Referral ID Status Reason Start Date Expiration Date Visits Re quested Visits Authorized [id number] Closed 05/12/2025 05/12/2026 1 1 Encounter Details Date Type Department Care Team (Late st Contact Info) Description 05/12/2025 Orders Only [facility] [address] [place] [phone] Sandy Rubi MD [address] [place] [address] [phone] Osteopenia of neck of femur, unspecified laterality [...] documented as of this encounter Care Teams Track Dresser Relationship Specialty Start Date End Date Sandy Rubi MD [address] [place] [phone] PCP - General Family Medicine 08/06/18 documented as of this encounter
--- OUTSIDE RECORDS SUMMARY | 2025-07-29 15:18 | XMS_ITS | Clinical Summary ---
Author Organization [facility] Address [address] [place] [address] Phone Care Team Providers Care Tub Rider Name Role Phone Sandy Rubi MD Primary Care Provider [phone] Allergies Active Allergy Reactions Criticality Noted Date Comments Aspirin Rash High 07/19/2010 Medications acetaminophen (TYLENOL) 500 mg tablet Take 2 tablets (1,000 mg total) by mouth 1 (one) time each day. 03/14/20 25 Active chlorhexidine (PERIDEX) 0.12 % solution PLEASE SEE ATTACHED FOR DETAILED DIRECTIONS 03/21/20 25 Active dicyclomine (BENTYL) 10 mg capsule TAKE 1-2 CAPSULES BY MOUTH EVERY 6 HOURS IF NEEDED FOR CRAMPS/DISCOMF ORT 04/22/20 25 Active levothyroxine (SYNTHROID, LEVOTHROID) 88 mcg tablet take 1 tablet (88 mcg) by mouth before breakfast 04/02/20 25 Active metroNIDAZOLE (FLAGYL) 500 mg tablet Take 1 tablet (500 mg total) by mouth every 8 (eight) hours. 06/04/20 24 Active montelukast (SINGULAIR) 10 mg tablet take 1 tablet (10 mg) by mouth in the evening 04/02/20 25 Active ondansetron ODT (ZOFRAN-ODT) 4 mg disintegrating tablet DISSOLVE 1 TABLET ORALLY EVERY 8 HOURS NEEDED FOR NAUSEA AND VOMITING 11/04/19 25 Active pantoprazole (PROTONIX) 40 mg EC tablet 04/27/20 25 Active sucralfate (CARAFATE) 100 mg/mL suspension TAKE 10 ML ORALLY 2 TIMES A DAY FOR 7 DAYS 11/04/19 25 Active valACYclovir (VALTREX) 1 gram tablet TAKE 2 TABLETS (2,000 MG) BY MOUTH ONCE PER DAY FOR 1 DAY. 06/23/20 25 Active alpha lipoic acid 600 mg capsule Take 1 capsule by mouth 1 (one) time each day. 30 capsule 2 07/28/20 25 026 Active diclofenac (Voltaren Arthritis Pain) 1 % topical gel Apply 4 g topically 2 (two) times a day. 240 g 1 05/01/20 25 025 Encounters Date Type Department Care Team Description 07/28/2025 9:45 AM EST Office Visit Orthopedic Surgery [facility] [address] [phone] César Barbosa DPM Neuritis (Primary Dx); Plantar fascial fibromatosis; Peripheral venous insufficiency; Bilateral femoral artery stenosis (CMS/HCC V24); Corns and callosities; Hammer toe of left foot; Metatarsalgia of left foot 04/30/2025 Telephone Orthopedic Surgery [facility] [address] [phone] César Barbosa DPM 04/29/2025 9:45 AM EDT Consult Orthopedic Surgery [facility] [address] [phone] César Barbosa DPM Peripheral venous insufficiency (Primary [...] Vascular Surgery [facility] [address] [facility] [address] [place] [phone] Genny Tapia MD [address] [place] [phone] Health Maintenance Due Date Last Done Comments [...] 2 - Risk 2-dose series) 07/31/2025 01/29/2025 Cholesterol Screening (Lipid Panel) 09/30/2029 09/30/2024 DTaP,Tdap,and Td Vaccines (5 - Td or [...] Insurance MEDICARE MEDICAID - [place] Care Teams Tub Rider Relationship Specialty Start Date End Date Sandy Rubi MD [address] [place] [phone] PCP - General Family Medicine 02/10/25
== END 2025-07-29 15:15 | disposition home or self-care (01) ==
LOC: HO.HHCLNP 15:14
PROVIDERS: Visit Provider Family Medicine
DX: N39.46 Mixed incontinence (principal)
CPT/HCPCS: 87086